=== PATIENT | female | born 1945 | race African-American/Black ===

== ENCOUNTER 2017-02-09 17:46 | Inpatient (IN) | payer MEDICARE, BC ==
[~2017-02-09] VITALS: Ht 167.6 cm; Wt 85.8 kg
[~2017-02-09 17:46] MED LIST: ACET325T21 PO; ALBU2.5V5 NEB; AMLO10TA2 PO; CARV25TA2 PO; CINA30TA PO; CLON0.1T PO; ESOM20CA PO; FOLI0.8T3 PO; IBUP200T43 PO; IPRA3AMP NEB; LATA2.5D3 EACHEYE; LISI40TA PO; MOME17SP NS; NAPR500T3 PO; OMEP40CA5 PO; ONDA4TAB7 PO; PANT40TA5 PO; SEVE800T9 PO; SUCR1TAB29 PO; ZOLP5TAB5 PO
[2017-02-09] MEDS ORDERED: fentaNYL PF VIAL 100 MCG/2 ML VIAL IV PRN (18:00)
[2017-02-09] MEDS ORDERED: IPRATRPIUM/ALBUTEROL 0.5/2.5MG 3 ML NEBU. ONE (18:39)
[2017-02-09 18:40] LABS: BASO % 1 % (0-3); EOS % 0 % (0-3); HEMATOCRIT 37.3 % (36.0-47.0); HEMOGLOBIN 12.4 g/dL (12.0-15.5); LYMPH # 0.4 x10^3/uL (1.0-4.8); LYMPH % 5 % (24-48); MEAN CORPUSCULAR HEMOGLOBIN 31 pg (25-35); MEAN CORPUSCULAR HGB CONC 33 g/dL (31-37); MEAN CORPUSCULAR VOLUME 93 fL (79-100); MONO % 1 % (0-9); NEUT % 93 % (31-73); PLATELET COUNT 163 x10^3/uL (140-400); RED BLOOD COUNT 4.03 x10^6/uL (3.50-5.40); RED CELL DISTRIBUTION WIDTH 15.4 % (11.5-14.5); WHITE BLOOD COUNT 8.5 x10^3/uL (4.0-11.0)
--- NOTE | 2017-02-09 18:44 | PHYS DOC ---
Past Medical History Past Medical History: Diabetes-Type II, GERD, Hypertension, Renal Failure, Other Additional Past Medical Histor: ESRF Past Surgical History: Other Additional Past Surgical Histo: TUMOR-BACK OF HEAD,CATARCT,CARPAL TUNNEL, fistula Rt arm,axillary tumor,D&C Alcohol Use: Occasionally Drug Use: None Adult General Chief Complaint Chief Complaint: CHEST PAIN HPI HPI Patient is a 71 year old FEMALE who presents with DYSPNEA, COUGH, FEVER Pt states cough for few day and increasing shortness of air. Went to scheduled dialysis today and they noted she seem short of air prior to dialysis. Then pt noted to have fever at start of dialysis so dialysis was stopped and pt sent to ER. While on start of dialysis pt started complaining of chest pain across lower chest bilaterally, pressure. Now 10/31. Was given ASA by EMS prior to arrival. Pt states has new dialysis port in R chest ? few weeks ago but pt is unclear exactly how long it has been there. Pt denies F/C prior to today. No redness swelling or pain at new dialysis port site. Pt doesn't make urine. No abdominal pain, no diarrhea, no vomiting Review of Systems Review of Systems Constitutional: YES fever and chills [] Eyes: Denies change in visual acuity, redness, or eye pain [] HENT: Denies nasal congestion or sore throat [] Respiratory: yes cough and dyspnea, no hemoptysis Cardiovascular: yes chest pain, no syncope GI: Denies abdominal pain, nausea, vomiting, bloody stools or diarrhea [] : Denies dysuria or hematuria [] Musculoskeletal: Denies back pain or joint pain [] Integument: Denies rash or skin lesions [] Neurologic: Denies headache, focal weakness or sensory changes [] Endocrine: Denies polyuria or polydipsia [] Current Medications Current Medications Current Medications Medications (Trade) Dose Ordered Sig/Any Start Time Stop Time Status Last Admin Dose Admin Acetaminophen (Tylenol) 1,000 mg 1X ONCE 02/09/17 18:45 02/09/17 18:46 DC 02/09/17 18:51 1,000 MG Albuterol/ Ipratropium (Duoneb) 3 ml STK-MED ONCE 02/09/17 18:39 02/09/17 18:40 DC Fentanyl Citrate (Fentanyl 2ml Vial) 25 mcg PRN Q15MIN PRN 02/09/17 18:00 02/10/17 17:59 02/09/17 18:19 25 MCG Ondansetron HCl (Zofran) 4 mg 1X ONCE 02/09/17 18:45 02/09/17 18:46 DC Piperacillin Sod/ Tazobactam Sod 3.375 gm/Sodium Chloride 50 ml @ 100 mls/hr 1X ONCE 02/09/17 19:00 02/09/17 19:29 DC 02/09/17 18:56 100 MLS/HR Vancomycin HCl (Vanco Per Pharmacy) 1 each PRN DAILY PRN 02/09/17 19:00 Cancel Allergies Allergies Allergies Coded Allergies Type Severity Reaction Last Updated Verified chlorhexidine Allergy Intermediate Rash 06/03/16 Yes Opioids - Morphine Analogues Adverse Reaction Intermediate Nausea and Vomiting 06/03/16 Yes Opioids-Meperidine & Related Adverse Reaction Intermediate Nausea and Vomiting 06/03/16 Yes Opioids-Methadone & Related Adverse Reaction Intermediate Nausea and Vomiting 06/03/16 Yes codeine Adverse Reaction Intermediate Nausea and Vomiting 06/03/16 Yes Physical Exam Physical Exam Constitutional: Mild respiratory distress, coughing in ER HENT: Normocephalic, atraumatic, bilateral external ears normal, oropharynx moist, no oral exudates, nose normal. [] Eyes: PERRLA,, conjunctiva normal, no discharge. [] Neck: Normal range of motion, no tenderness, supple, no stridor. [] Cardiovascular:Heart rate regular rhythm, no murmur [] Lungs & Thorax: Bilateral rales and rhonchi with slight expiratory wheeze Abdomen: Bowel sounds normal, soft, no tenderness, no masses, no pulsatile masses. [] Skin: Warm, dry, no erythema, no rash. [] Back: No tenderness, no CVA tenderness. [] Extremities: No tenderness, no cyanosis, no clubbing, ROM intact, no edema. [] Neurologic: Alert and oriented X 3, normal motor function, normal sensory function, no focal deficits noted. [] Current Patient Data Vital Signs Vital Signs Date Time Temp Pulse Resp B/P (MAP) Pulse Ox O2 Delivery O2 Flow Rate FiO2 02/09/17 19:19 95 Nasal Cannula 4.0 02/09/17 19:00 92 30 202/94 (130) 02/09/17 17:57 100.1 100.1 Lab Values Laboratory Tests Test 02/09/17 18:30 02/09/17 19:15 White Blood Count 8.5 x10^3/uL (4.0-11.0) Red Blood Count 4.03 x10^6/uL (3.50-5.40) Hemoglobin 12.4 g/dL (12.0-15.5) Hematocrit 37.3 % (36.0-47.0) Mean Corpuscular Volume 93 fL (79-100) Mean Corpuscular Hemoglobin 31 pg (25-35) Mean Corpuscular Hemoglobin Concent 33 g/dL (31-37) Red Cell Distribution Width 15.4 % (11.5-14.5) H Platelet Count 163 x10^3/uL (140-400) Neutrophils (%) (Auto) 93 % (31-73) H Lymphocytes (%) (Auto) 5 % (24-48) L Monocytes (%) (Auto) 1 % (0-9) Eosinophils (%) (Auto) 0 % (0-3) Basophils (%) (Auto) 1 % (0-3) Neutrophils # (Auto) 7.9 x10^3uL (1.8-7.7) H Lymphocytes # (Auto) 0.4 x10^3/uL (1.0-4.8) L Monocytes # (Auto) 0.1 x10^3/uL (0.0-1.1) Eosinophils # (Auto) 0.0 x10^3/uL (0.0-0.7) Basophils # (Auto) 0.0 x10^3/uL (0.0-0.2) Segmented Neutrophils % 90 % (35-66) H Lymphocytes % 7 % (24-48) L Monocytes % 2 % (0-10) Eosinophils % 1 % (0-5) Platelet Estimate Adequate (ADEQUATE) Large Platelets Occ Giant Platelets Occ Ovalocytes Occ Schistocytes Occ Prothrombin Time 15.2 SEC (11.7-14.0) H Prothrombin Time INR 1.3 (0.8-1.1) H PTT 37 SEC (24-38) Sodium Level 138 mmol/L (136-145) Potassium Level 4.6 mmol/L (3.5-5.1) Chloride Level 100 mmol/L (98-107) Carbon Dioxide Level 17 mmol/L (21-32) L Anion Gap 21 (6-14) H Blood Urea Nitrogen 60 mg/dL (7-20) H Creatinine 10.6 mg/dL (0.6-1.0) H Estimated GFR (Cockcroft-Gault) 4.4 BUN/Creatinine Ratio 6 (6-20) Glucose Level 105 mg/dL (70-99) H Lactic Acid Level 0.9 mmol/L (0.4-2.0) Calcium Level 9.0 mg/dL (8.5-10.1) Total Bilirubin 0.7 mg/dL (0.2-1.0) Aspartate Amino Transferase (AST) 21 U/L (15-37) Alanine Aminotransferase (ALT) 16 U/L (14-59) Alkaline Phosphatase 108 U/L (46-116) Creatine Kinase 134 U/L (26-192) Creatine Kinase MB (Mass) 3.1 ng/mL (0.0-3.6) Creatine Kinase MB Relative Index 2.3 % (0-4) Troponin I Quantitative 0.576 ng/mL (0.000-0.055) 0.535 ng/mL (0.000-0.055) EP-Wbx-W-Type Natriuretic Peptide > 62647 pg/mL (0-124) H Total Protein 8.3 g/dL (6.4-8.2) H Albumin 3.6 g/dL (3.4-5.0) Albumin/Globulin Ratio 0.8 (1.0-1.7) L Laboratory Tests 02/09/17 18:30 Laboratory Tests 02/09/17 18:30 EKG EKG EKG, Sinus Rhythm, no Stemi, nonspecific ST T wave changes[] Radiology/Procedures Radiology/Procedures Portable CXR----Cardiomegally, +CHF, slight LLL infiltrate Impressions: 1. CHF with respiratory distress ad hypoxia 2. Pneumonia 3. ESRD Course & Med Decision Making Course & Med Decision Making Pertinent Labs and Imaging studies reviewed. (See chart for details) Pt not dialysed today because of fever and cough--sent to ER. Pt has CHF and pneumonia, needs dialysis tonight Gave Zosyn and Vancomycin for pneumonia Elevated troponin X2 but slightly decreasing on second likely stress related to CHF will watch and consulted Cardiology Consulted Nephrology [] Dragon Disclaimer Dragon Disclaimer This electronic medical record was generated, in whole or in part, using a voice recognition dictation system. Departure Departure Impression: Primary Impression: Acute CHF Additional Impression: Pneumonia Disposition: 09 ADMITTED INPATIENT Admitting Physician: Yary Bunch Condition: STABLE Referrals: YARY BUNCH MD (PCP) Problem Qualifiers AUBREY GARCIA MD February 09, 2017 18:44
[2017-02-09] MEDS ORDERED: ONDANSETRON PF 4 MG/2 ML VIAL. IV ONE ×2 (18:45)
[2017-02-09] MEDS ORDERED: ACETAMINOPHEN 500 MG TABLET PO ONE (18:45)
[2017-02-09 18:49] LABS: INR 1.3 (0.8-1.1); PROTHROMBIN TIME PATIENT 15.2 SEC (11.7-14.0)
[2017-02-09 18:54] LABS: CREATININE 10.6 mg/dL (0.6-1.0); GFR 4.4; POTASSIUM 4.6 mmol/L (3.5-5.1)
[2017-02-09] MEDS ORDERED: VANCOMYCIN PER PHARMACY MC PRN (19:00)
[2017-02-09] MEDS ORDERED: PIPERACILLIN/TAZOBACTAM 3.375 GM in IV NORMAL SALINE 50ML 50 ML IV ONE (19:00)
[2017-02-09 19:07] LABS: ALBUMIN 3.6 g/dL (3.4-5.0); ALBUMIN/GLOBULIN RATIO 0.8 (1.0-1.7); CKMB MASS 3.1 ng/mL (0.0-3.6); TOTAL BILIRUBIN 0.7 mg/dL (0.2-1.0); TOTAL PROTEIN 8.3 g/dL (6.4-8.2)
[2017-02-09 19:14] LABS: % EOS 1 % (0-5)
[2017-02-09 19:17] LABS: OVALOCYTES OCC; PLT ESTIMATE ADEQUATE (ADEQUATE); SCHISTOCYTES OCC
[2017-02-09] MEDS ORDERED: IPRATRPIUM/ALBUTEROL 0.5/2.5MG 3 ML NEBU. NEB ONE (19:30)
[2017-02-09] MEDS ORDERED: ONDANSETRON PF 4 MG/2 ML VIAL. IV PRN (19:45)
[2017-02-09] MEDS ORDERED: VANCOMYCIN 2 GM in IV NORMAL SALINE 500ML BAG 500 ML IV ONE (20:00)
[2017-02-09] MEDS ORDERED: IV NORMAL SALINE 1000ML BAG 1,000 ML IV PRN ×2 (20:49)
[2017-02-09] MEDS ORDERED: DIALYSIS PATIENT. MC PRN (21:00)
[2017-02-09] MEDS ORDERED: 0.9 % SODIUM CHLORIDE 10 ML DISP.SYRIN. IV PRN ×2 (21:00)
[2017-02-09] MEDS ORDERED: cloNIDine HCL 0.1 MG TABLET PO ONE (22:00)
[2017-02-09] MEDS ORDERED: ENOXAPARIN 30 MG/0.3 ML SYRINGE. SQ SCH (22:00)
[2017-02-09] MEDS ORDERED: LATANOPROST 0.005% OPHTH SOLUTION 2.5ML BOTTLE. OU SCH (22:15)
[2017-02-09 23:10] VITALS: BP 204/90
[2017-02-09 23:15] VITALS: BP 204/90
[2017-02-09] MEDS: PIPERACILLIN/TAZOBACTAM 2.25 GM in IV NORMAL SALINE 50ML 50 ML IV SCH (23:40)
[2017-02-10] VITALS (8 sets, daily range): BP systolic 112–180; BP diastolic 55–83
[2017-02-10] MEDS ORDERED: ZOLP5TAB5 PO (01:17)
[2017-02-10] MEDS ORDERED: ESOM20CA PO (01:17)
[2017-02-10] MEDS ORDERED: LISI40TA PO (01:17)
[2017-02-10 01:34] LABS: BASO % 0 % (0-3); EOS % 0 % (0-3); HEMATOCRIT 31.4 % (36.0-47.0); HEMOGLOBIN 10.7 g/dL (12.0-15.5); LYMPH # 0.3 x10^3/uL (1.0-4.8); LYMPH % 3 % (24-48); MEAN CORPUSCULAR HEMOGLOBIN 31 pg (25-35); MEAN CORPUSCULAR HGB CONC 34 g/dL (31-37); MEAN CORPUSCULAR VOLUME 91 fL (79-100); MONO % 4 % (0-9); NEUT % 93 % (31-73); PLATELET COUNT 129 x10^3/uL (140-400); RED BLOOD COUNT 3.46 x10^6/uL (3.50-5.40); WHITE BLOOD COUNT 9.7 x10^3/uL (4.0-11.0)
--- NOTE | 2017-02-10 02:34 | ACF ---
Admission Forms Criteria HEART FAILURE: COMMON COMPLICATIONS Clinical Indications for Inpatient Care (Place 'X' for any and all applicable criteria): Ongoing inpatient care may be indicated for heart failure with ANY ONE of the following (1)(2)(3)(4)(5): [ ]I. Ongoing need for care for primary condition requiring frequent therapy adjustments because of changes in cardiac function (eg, drug dosage changes for drugs that are renally metabolized) [ ]II. New-onset heart failure [ ]III. Heart failure with decreased urine output not responsive to attempts to optimize volume status [ ]IV. Acute cardiac ischemia causing or associated with failure [X ]V. Complications of heart failure, including ANY ONE of the following: [ ]a) Pericardial effusion [ ]b) Symptomatic pleural effusion [ ]c) O2 saturation <90% or PO2 < 60 mm Hg (8.0 kPa) on room air or require baseline supplemental O2 [ ]d) Tachypnea [X]e) Dyspnea [ ]f) Syncope [ ]g) Change in mental status [ ]h) Acute renal insufficiency that is severe (reduction of more than 50% in estimated glomerular filtration rate from baseline) or progressive reduction of more than 25% in estimated glomerular filtration rate from baseline, with creatinine continuing to rise) [ ]i) Hemodynamic instability [ ]j) Anasarca [ ]k) Clinically significant metabolic abnormalities due to heart failure (eg, new-onset metabolic acidosis) Extended stay beyond goal length of stay for primary condition may be needed until ALL of the following are present(1)(3): [ ]a) Stable and effective diuretic regimen established (or patient on stable dialysis regimen if in chronic renal failure) [ ]b) Breathing comfortably at rest [ ]c) Saturation of arterial oxygen greater than 90% or at acceptable baseline [ ]d) Pulmonary edema absent or improved [ ]e) Hemodynamic stability [ ]f) Volume status acceptable on oral medication [ ]g) Peripheral or sacral edema absent or improved [ ]h) Renal function stable and manageable at a lower level of care [ ]i) Complications (eg, pleural effusion) resolved or manageable at a lower level of care [ ]j) Patient or caregiver has received written discharge instructions or educational material addressing activity level, diet, discharge medications, follow-up appointment, weight monitoring, and what to do if symptoms worsen The original [facility] content created by [employer] has been revised. The portions of the content which have been revised are identified through the use of italic text or in bold, and [facility] has neither reviewed nor approved the modified material.All other unmodified content is copyright [facility]. Please see references footnoted in the original [facility] 2016 Admission Criteria Met?: Yes KENDELL WILSON February 10, 2017 02:34
[2017-02-10] MEDS: cloNIDine HCL 0.1 MG TABLET PO PRN (03:37)
[2017-02-10 04:15] LABS: CALCIUM 8.3 mg/dL (8.5-10.1); CREATININE 6.3 mg/dL (0.6-1.0); POTASSIUM 3.7 mmol/L (3.5-5.1)
[2017-02-10] MEDS ORDERED: ACETAMINOPHEN 500 MG TABLET PO ONE (05:00)
[2017-02-10] MEDS: PIPERACILLIN/TAZOBACTAM 2.25 GM in IV NORMAL SALINE 50ML 50 ML IV SCH ×3 (05:54→21:34)
[2017-02-10] MEDS: ONDANSETRON ODT 4 MG TAB.RAPDIS. PO SCH ×4 (06:00→18:00)
[2017-02-10] MEDS: IPRATRPIUM/ALBUTEROL 0.5/2.5MG 3 ML NEBU. NEB SCH ×4 (07:30→19:43)
--- NOTE | 2017-02-10 07:33 | EKG ---
[facility] [address] [place] [id number] Test Date: 2017-02-09 Test Time: 17:53:18 Pat Name: EMERALD MAI Department: Room: 248 1 Gender: F Model Technician: : 1945 Requested By: AUBREY GARCIA Order Number: [id number] Reading MD: Mireya Garrido Measurements Intervals [place] Rate: 91 P: 43 WV: 252 QRS: 37 QRSD: 90 T: 101 QT: 370 QTc: 457 Interpretive Statements SINUS RHYTHM PROLONGED WV INTERVAL NON SPECIFIC ST T WAVE CHANGES Electronically Signed On 02-12-2017 20:45:11 CDT by Mireya Garrido
--- NOTE | 2017-02-10 08:19 | RAD ---
Portable chest, 02/09/2017: History: Dyspnea Comparison is made to a study from 02/29/2016. A right jugular dialysis type catheter has been inserted extending into the superior aspect of the right atrium. The heart is at the upper limits of normal in size. The pulmonary vascularity is congested. There are moderate bilateral predominantly interstitial pulmonary opacities compatible with pulmonary edema. No significant volume of pleural fluid is seen. IMPRESSION: Moderate pulmonary edema.
[2017-02-10] MEDS: FLUTICASONE 50MCG/NASAL SPRAY 16GM BOTTLE. NS SCH (09:07)
--- NOTE | 2017-02-10 09:48 | PDOC2 ---
BRIAN MEDINA SAW MAN 02/10/17 0948: CARDIAC CONSULT DATE OF CONSULT Date of Consult DATE: 02/10/17 TIME: 09:30 REASON FOR CONSULT Reason for Consult: Chest Pain Elevated Troponin REFERRING PHYSICIAN Referring Physician: Dr. Munoz SOURCE Source: Chart review, Patient HISTORY OF PRESENT ILLNESS HISTORY OF PRESENT ILLNESS This is a 71 yo female who presented with complaints of shortness of breath and fevers. Patient reports having intermittent nausea yesterday and not feeling well overall. Started having slight shortness of air in the afternoon. Went to dialysis; SOA persisted. Was reportedly noted to have slight fevers and was sent to the ED for further evaluation. Did not received HD. Denies any CP, palpitations, dizziness, diaphoresis, or significant LE edema. Patient reports compliance with medication and dialysis. PAST MEDICAL HISTORY Past Medical History Cardiovascular: HTN, CHF Pulmonary: No pertinent hx CENTRAL NERVOUS SYSTEM: Other (no pertinent hx) GI: GERD Heme/Onc: Anemia NOS Hepatobiliary: No pertinent hx Psych: Anxiety, Depression Musculoskeletal: Osteoarthritis Rheumatologic: No pertinent hx Infectious disease: No pertinent hx ENT: No pertinent hx Renal/: ESRD (on HD), Other (anuric), renal mass Endocrine: Diabetes Dermatology: No pertinent hx PAST SURGICAL HISTORY Past Surgical History Cataract Removal, Other (Right knee replacement, RUE fistula, breast biopsy, carpal tunnel sx) FAMILY HISTORY Family History: Coronary Artery Disease, Hypertension SOCIAL HISTORY Social History Smoke: No ALCOHOL: none Drugs: None Lives: with Family CURRENT MEDICATIONS CURRENT MEDICATIONS Current Medications Medications (Trade) Dose Ordered Sig/Any Route PRN Reason Start Time Stop Time Status Last Admin Dose Admin Fentanyl Citrate (Fentanyl 2ml Vial) 25 mcg PRN Q15MIN PRN IV PAIN GREATER THAN 3/10 02/09/17 18:00 02/10/17 17:59 02/09/17 18:19 Acetaminophen (Tylenol) 1,000 mg 1X ONCE PO 02/09/17 18:45 02/09/17 18:46 DC 02/09/17 18:51 Ondansetron HCl (Zofran) 4 mg 1X ONCE IV 02/09/17 18:45 02/09/17 18:46 DC 02/09/17 18:51 Piperacillin Sod/ Tazobactam Sod 3.375 gm/Sodium Chloride 50 ml @ 100 mls/hr 1X ONCE IV 02/09/17 19:00 02/09/17 19:29 DC 02/09/17 18:56 Vancomycin HCl 2 gm/Sodium Chloride 500 ml @ 250 mls/hr 1X ONCE IV 02/09/17 20:00 02/09/17 21:59 DC 02/09/17 19:40 Albuterol/ Ipratropium (Duoneb) 3 ml 1X ONCE NEB 02/09/17 19:30 02/09/17 19:31 DC 02/09/17 19:21 Ondansetron HCl (Zofran) 4 mg PRN Q8HRS PRN IV NAUSEA/VOMITING 02/09/17 19:45 02/10/17 19:44 02/09/17 22:46 Piperacillin Sod/ Tazobactam Sod 2.25 gm/Sodium Chloride 50 ml @ 100 mls/hr Q8HRS IV 02/09/17 22:00 02/10/17 05:54 Albuterol/ Ipratropium (Duoneb) 3 ml RTQID NEB 02/10/17 08:00 02/10/17 07:30 Clonidine HCl (Catapres) 0.1 mg PRN Q2HR PRN PO HYPERTENSION, SEE COMMENTS 02/09/17 21:45 02/10/17 03:37 Fluticasone Propionate (Flonase) 2 spray DAILY NS 02/10/17 09:00 02/10/17 09:07 Enoxaparin Sodium (Lovenox 30mg Syringe) 30 mg Q24H SQ 02/09/17 22:00 02/10/17 00:10 Clonidine HCl (Catapres) 0.1 mg 1X ONCE PO 02/09/17 22:00 02/09/17 22:03 DC 02/09/17 23:39 Acetaminophen (Tylenol) 500 mg 1X ONCE PO 02/10/17 05:00 02/10/17 05:01 DC 02/10/17 05:15 ALLERGIES ALLERGIES: Coded Allergies: chlorhexidine (Verified Allergy, Intermediate, Rash, 06/03/16) Opioids - Morphine Analogues (Verified Adverse Reaction, Intermediate, Nausea and Vomiting, 06/03/16) Opioids-Meperidine & Related (Verified Adverse Reaction, Intermediate, Nausea and Vomiting, 06/03/16) Opioids-Methadone & Related (Verified Adverse Reaction, Intermediate, Nausea and Vomiting, 06/03/16) codeine (Verified Adverse Reaction, Intermediate, Nausea and Vomiting, ) ROS Review of System 14 point ROS conducted with pertinent positives noted above in HPI. PHYSICAL EXAM PHYSICAL EXAM General: Alert, Oriented X3, Cooperative, No acute distress HEENT: Atraumatic, Mucous membr. moist/pink Heart: Regular rate, Normal S1, Normal S2, Other (3/6 systolic murmur) Abdomen: soft/non-tender Extremities: No cyanosis, No edema, Other (RUE fistula + bruit/thrill) Skin: No breakdown, No significant lesion Neuro: Normal speech, Sensation intact Psych/Mental Status: Mental status NL, Mood NL MUSCULOSKELETAL: Osteoarthritic changes both hands VITALS VITALS Vital Signs Date Time Temp Pulse Resp B/P (MAP) Pulse Ox O2 Delivery O2 Flow Rate FiO2 02/10/17 07:45 98.0 62 22 158/74 (102) 96 Nasal Cannula 3.0 98.0 LABS Lab: Laboratory Tests Test 02/09/17 18:30 02/09/17 19:15 02/10/17 01:30 02/10/17 07:45 White Blood Count 8.5 x10^3/uL (4.0-11.0) 9.7 x10^3/uL (4.0-11.0) Red Blood Count 4.03 x10^6/uL (3.50-5.40) 3.46 x10^6/uL (3.50-5.40) Hemoglobin 12.4 g/dL (12.0-15.5) 10.7 g/dL (12.0-15.5) Hematocrit 37.3 % (36.0-47.0) 31.4 % (36.0-47.0) Mean Corpuscular Volume 93 fL (79-100) 91 fL (79-100) Mean Corpuscular Hemoglobin 31 pg (25-35) 31 pg (25-35) Mean Corpuscular Hemoglobin Concent 33 g/dL (31-37) 34 g/dL (31-37) Red Cell Distribution Width 15.4 % (11.5-14.5) 15.0 % (11.5-14.5) Platelet Count 163 x10^3/uL (140-400) 129 x10^3/uL (140-400) Neutrophils (%) (Auto) 93 % (31-73) 93 % (31-73) Lymphocytes (%) (Auto) 5 % (24-48) 3 % (24-48) Monocytes (%) (Auto) 1 % (0-9) 4 % (0-9) Eosinophils (%) (Auto) 0 % (0-3) 0 % (0-3) Basophils (%) (Auto) 1 % (0-3) 0 % (0-3) Neutrophils # (Auto) 7.9 x10^3uL (1.8-7.7) 9.0 x10^3uL (1.8-7.7) Lymphocytes # (Auto) 0.4 x10^3/uL (1.0-4.8) 0.3 x10^3/uL (1.0-4.8) Monocytes # (Auto) 0.1 x10^3/uL (0.0-1.1) 0.4 x10^3/uL (0.0-1.1) Eosinophils # (Auto) 0.0 x10^3/uL (0.0-0.7) 0.0 x10^3/uL (0.0-0.7) Basophils # (Auto) 0.0 x10^3/uL (0.0-0.2) 0.0 x10^3/uL (0.0-0.2) Segmented Neutrophils % 90 % (35-66) Lymphocytes % 7 % (24-48) Monocytes % 2 % (0-10) Eosinophils % 1 % (0-5) Platelet Estimate Adequate (ADEQUATE) Large Platelets Occ Giant Platelets Occ Ovalocytes Occ Schistocytes Occ Prothrombin Time 15.2 SEC (11.7-14.0) Prothromb Time International Ratio 1.3 (0.8-1.1) Activated Partial Thromboplast Time 37 SEC (24-38) Sodium Level 138 mmol/L (136-145) 139 mmol/L (136-145) Potassium Level 4.6 mmol/L (3.5-5.1) 3.7 mmol/L (3.5-5.1) Chloride Level 100 mmol/L (98-107) 101 mmol/L (98-107) Carbon Dioxide Level 17 mmol/L (21-32) 24 mmol/L (21-32) Anion Gap 21 (6-14) 14 (6-14) Blood Urea Nitrogen 60 mg/dL (7-20) 30 mg/dL (7-20) Creatinine 10.6 mg/dL (0.6-1.0) 6.3 mg/dL (0.6-1.0) Estimated GFR (Cockcroft-Gault) 4.4 8.0 BUN/Creatinine Ratio 6 (6-20) Glucose Level 105 mg/dL (70-99) 145 mg/dL (70-99) Lactic Acid Level 0.9 mmol/L (0.4-2.0) Calcium Level 9.0 mg/dL (8.5-10.1) 8.3 mg/dL (8.5-10.1) Total Bilirubin 0.7 mg/dL (0.2-1.0) Aspartate Amino Transf (AST/SGOT) 21 U/L (15-37) Alanine Aminotransferase (ALT/SGPT) 16 U/L (14-59) Alkaline Phosphatase 108 U/L (46-116) Creatine Kinase 134 U/L (26-192) Creatine Kinase MB (Mass) 3.1 ng/mL (0.0-3.6) Creatine Kinase MB Relative Index 2.3 % (0-4) Troponin I Quantitative 0.576 ng/mL (0.000-0.055) 0.535 ng/mL (0.000-0.055) 0.704 ng/mL (0.000-0.055) 0.744 ng/mL (0.000-0.055) YY-Ovw-L-Type Natriuretic Peptide > 49820 pg/mL (0-124) Total Protein 8.3 g/dL (6.4-8.2) Albumin 3.6 g/dL (3.4-5.0) Albumin/Globulin Ratio 0.8 (1.0-1.7) ECHOCARDIOGRAM ECHOCARDIOGRAM <Conclusion> Normal LV systolic function. EF 55-60% Mild to moderate MR. Mild TR with moderate pulmonary HTN. RVSP 59 mm Hg. DATE: 02/05/16 1420 STRESS TEST STRESS TEST Conclusion 1. No evidence of stress induced EKG changes. 2. Subtle inferolateral perfusion defect suggestive of attenuation artifact with grossly normal regional wall motion. 3. EF 50%. 4. Low risk study. DATE: 02/06/16 0816 ASSESSMENT/PLAN ASSESSMENT/PLAN 1. Acute on chronic diastolic heart failure 2. Hypertensive urgency 3. Mild troponin elevation 4. Dyspnea 5. Pulmonary HTN 6. ESRD on HD 7. Anemia 8. DM Recommendations 1. Resume home antiHTN therapy and assess need for titration. Hydralazine IV PRN 2. Mild troponin elevation likely type II, demand ischemia in the setting of renal failure and malignant HTN. 2 Will check echo to assess LV function/presence of WMA 3. Fluid offloading with HD as per nephrology, as patient is anuric. Maintain blood pressure control. 4. Supportive care Problems: ARELY JARAMILLO MD 02/10/172158: CARDIAC CONSULT ALLERGIES ALLERGIES: Coded Allergies: chlorhexidine (Verified Allergy, Intermediate, Rash, 06/03/16) Opioids - Morphine Analogues (Verified Adverse Reaction, Intermediate, Nausea and Vomiting, 06/03/16) Opioids-Meperidine & Related (Verified Adverse Reaction, Intermediate, Nausea and Vomiting, 06/03/16) Opioids-Methadone & Related (Verified Adverse Reaction, Intermediate, Nausea and Vomiting, 06/03/16) codeine (Verified Adverse Reaction, Intermediate, Nausea and Vomiting, ) ASSESSMENT/PLAN ASSESSMENT/PLAN Pt. seen and examined. Agree with above [employer] note. 71 y.o woman with ESRD. Gained weight last several weeks. Denies chest pain. Normal cardiac exam today. Feels better and HD. Plan for more fluid removal Will follow along. Echo wnl. Problems: BRIAN MEDINA APRN February 10, 2017 09:48 ARELY JARAMILLO MD February 10, 2017 21:59
[2017-02-10] MEDS: FOLIC/VIT B COMP W-C (RENAL) TABLET. PO SCH (09:54)
[2017-02-10] MEDS: SEVELAMER CARBONATE 800 MG TABLET. PO SCH ×3 (09:54→18:32)
[2017-02-10] MEDS: PANTOPRAZOLE 40 MG TABLET.DR. PO SCH (09:56)
[2017-02-10] MEDS: amLODIPine BESYLATE 10 MG TABLET PO SCH (09:57)
[2017-02-10] MEDS: SUCRALFATE 1 GM TABLET. PO SCH ×3 (09:58→18:33)
[2017-02-10] MEDS: CARVEDILOL 12.5 MG TABLET. PO SCH ×2 (09:58→18:34)
[2017-02-10 10:06] LABS: OBC FLU VALID
--- NOTE | 2017-02-10 10:09 | PDOC ---
Provider Note Provider Note Pt seen .H&P to be dictated YARY FAIRCHILD MD February 10, 2017 10:09
--- NOTE | 2017-02-10 11:13 | PDOC2 ---
CONSULT Date of Consult Date of Consult DATE: 02/10/17 TIME: 11:09 Reason for Consult Reason for Consult: DEVORAH Referring Physician Referring Physician: DEVORAH Identification/Chief Complaint Chief Complaint SOB Source Source: Chart review, Patient History of Present Illness Reason for Visit: THIS IS A 71 YR OLD ADMITTED WITH SOB AND DX WITH VOLUME OVERLOAD AND POSSIBLE PNEUMONIA. SHE HAS ESRD AND IS ON OP HD ON MWF. LABS ARE C/W ESRD. SHE IS ALSO NOTED TO HAVE SOME LEUCOCYTOSIS. CXRAY SHOWED PULMONARY EDEMA. SHE HAS ALSO HAD SOME FEVERS Past Medical History Cardiovascular: HTN Pulmonary: No pertinent hx CENTRAL NERVOUS SYSTEM: Other GI: GERD Heme/Onc: Anemia NOS Psych: Anxiety, Depression Musculoskeletal: Osteoarthritis Renal/: Chronic renal failure, Other Endocrine: Diabetes, Hyperparathyroidism Past Surgical History Past Surgical History: Cataract Removal, Total knee replacement Family History Family History: Coronary Artery Disease, Hypertension Social History ALCOHOL: none Drugs: None Lives: with Family Current Problem List Problem List Problems Medical Problems: (1) Acute CHF Status: Acute (2) Pneumonia Status: Acute Current Medications Current Medications Current Medications Fentanyl Citrate (Fentanyl 2ml Vial) 25 mcg PRN Q15MIN PRN IV PAIN GREATER THAN 3/10 Last administered on 02/09/17 18:19; Start 02/09/17 at 18:00; Stop at 17:59 Acetaminophen (Tylenol) 1,000 mg 1X ONCE PO Last administered on 02/09/17 18: 51; Start 02/09/17 at 18:45; Stop 02/09/17 at 18:46; Status DC Albuterol/ Ipratropium (Duoneb) 3 ml STK-MED ONCE .ROUTE ; Start 02/09/17 at 18: 39; Stop 02/09/17 at 18:40; Status DC Ondansetron HCl (Zofran) 4 mg 1X ONCE IV Last administered on 02/09/17 18:51 ; Start 02/09/17 at 18:45; Stop 02/09/17 at 18:46; Status DC Ondansetron HCl (Zofran) 4 mg 1X ONCE IV ; Start 02/09/17 at 18:45; Stop at 18:46; Status DC Piperacillin Sod/ Tazobactam Sod 3.375 gm/Sodium Chloride 50 ml @ 100 mls/hr 1X ONCE IV Last administered on 02/09/17 18:56; Start 02/09/17 at 19:00; Stop 02/09/17 at 19:29; Status DC Vancomycin HCl (Vanco Per Pharmacy) 1 each PRN DAILY PRN MC SEE COMMENTS; Start 02/09/17 at 19:00; Status Cancel Vancomycin HCl 2 gm/Sodium Chloride 500 ml @ 250 mls/hr 1X ONCE IV Last administered on 02/09/17 19:40; Start 02/09/17 at 20:00; Stop 02/09/17 at 21:59 ; Status DC Albuterol/ Ipratropium (Duoneb) 3 ml 1X ONCE NEB Last administered on 19:21; Start 02/09/17 at 19:30; Stop 02/09/17 at 19:31; Status DC Ondansetron HCl (Zofran) 4 mg PRN Q8HRS PRN IV NAUSEA/VOMITING Last administered on 02/09/17 22:46; Start 02/09/17 at 19:45; Stop 02/10/17 at 19:44 Sodium Chloride 1,000 ml @ 1,000 mls/hr Q1H PRN IV hypotension; Start 02/09/17 at 20:49; Stop 02/10/17 at 02:48; Status DC Sodium Chloride (Normal Saline Flush) 10 ml 1X PRN PRN IV AP catheter pack; Start 02/09/17 at 21:00; Stop 02/10/17 at 20:59 Sodium Chloride (Normal Saline Flush) 10 ml 1X PRN PRN IV LINKER UP catheter pack; Start 02/09/17 at 21:00; Stop 02/10/17 at 20:59 Sodium Chloride 1,000 ml @ 400 mls/hr Q2H30M PRN IV PATENCY; Start 02/09/17 at 20:49; Stop 02/10/17 at 08:48; Status DC Info (PHARMACY MONITORING -- do not chart) 1 each PRN DAILY PRN MC SEE COMMENTS ; Start 02/09/17 at 21:00 Piperacillin Sod/ Tazobactam Sod 2.25 gm/Sodium Chloride 50 ml @ 100 mls/hr Q8HRS IV Last administered on 02/10/17 05:54; Start 02/09/17 at 22:00 Albuterol/ Ipratropium (Duoneb) 3 ml RTQID NEB Last administered on 02/10/17 07:30; Start 02/10/17 at 08:00 Amlodipine Besylate (Norvasc) 10 mg DAILY PO Last administered on 02/10/17 09: 57; Start 02/10/17 at 09:00 Cinacalcet (Sensipar) 30 mg DAILYWLUN PO ; Start 02/10/17 at 12:00 Clonidine HCl (Catapres) 0.1 mg PRN Q2HR PRN PO HYPERTENSION, SEE COMMENTS Last administered on 02/10/17 03:37; Start 02/09/17 at 21:45 Vitamin B Complex/ Vitamin C (Evelyn-Elsa) 1 tab DAILY PO Last administered on 09:54; Start 02/10/17 at 09:00 Latanoprost (Xalatan) 1 drop QHS OU ; Start 02/09/17 at 22:15; Stop 02/09/17 at 22:15; Status DC Pantoprazole Sodium (Protonix) 40 mg DAILY PO Last administered on 02/10/17 09 :56; Start 02/10/17 at 09:00 Sevelamer Carbonate (Renvela) 800 mg TIDWMEALS PO Last administered on 09:54; Start 02/10/17 at 08:00 Sucralfate (Carafate) 1 gm TIDAC PO Last administered on 02/10/17 09:58; Start 02/10/17 at 07:30 Carvedilol (Coreg) 12.5 mg BIDWMEALS PO Last administered on 02/10/17 09:58; Start 02/10/17 at 08:00 Fluticasone Propionate (Flonase) 2 spray DAILY NS Last administered on 09:07; Start 02/10/17 at 09:00 Ondansetron HCl (Zofran Odt) 4 mg Q6HRS PO Last administered on 02/10/17 09:55 ; Start 02/10/17 at 00:00 Enoxaparin Sodium (Lovenox 30mg Syringe) 30 mg Q24H SQ Last administered on 00:10; Start 02/09/17 at 22:00 Clonidine HCl (Catapres) 0.1 mg 1X ONCE PO Last administered on 02/09/17t 23: 39; Start 02/09/17 at 22:00; Stop 02/09/17 at 22:03; Status DC Latanoprost (Xalatan) 1 drop QHS OU ; Start 02/10/17 at 21:00 Acetaminophen (Tylenol) 500 mg 1X ONCE PO Last administered on 02/10/17t 05:15 ; Start 02/10/17 at 05:00; Stop 02/10/17 at 05:01; Status DC Lisinopril (Prinivil) 40 mg BID PO ; Start 02/10/17 at 11:00 Active Scripts Active Zofran (Ondansetron Hcl) 4 Mg Tablet 1 Tab PO Q6HRS Reported Nexium Capsule (Esomeprazole Magnesium) 20 Mg Capsule.dr 1 Cap PO DAILY Zolpidem Tartrate 5 Mg Tablet 5 Mg PO PRN QHS PRN Lisinopril 40 Mg Tablet 1 Tab PO BID Latanoprost 2.5 Ml Drops 1 Drop EACHEYE QHS Pantoprazole Sodium 40 Mg Tablet.dr 40 Mg PO DAILY Sensipar (Cinacalcet Hcl) 30 Mg Tablet 30 Mg PO DAILYWLUN Renvela (Sevelamer Carbonate) 800 Mg Tablet 800 Mg PO TIDWMEALS Nephro-Elsa Tablet (Folic Acid/Vitamin B Comp W-C) 0.8 Mg Tablet 1 Tab PO DAILY Nasonex (Mometasone Furoate) 17 Gm Gunlock.pump 2 Sprays NS DAILY Clonidine Hcl 0.1 Mg Tablet 0.1 Mg PO PRN Q2HR PRN Carvedilol 25 Mg Tablet 12.5 Mg PO BIDWMEALS Carafate (Sucralfate) 1 Gm Tablet 1 Gm PO TIDAC Amlodipine Besylate 10 Mg Tablet 10 Mg PO DAILY Allergies Allergies: Coded Allergies: chlorhexidine (Verified Allergy, Intermediate, Rash, 06/03/16) Opioids - Morphine Analogues (Verified Adverse Reaction, Intermediate, Nausea and Vomiting, 06/03/16) Opioids-Meperidine & Related (Verified Adverse Reaction, Intermediate, Nausea and Vomiting, 06/03/16) Opioids-Methadone & Related (Verified Adverse Reaction, Intermediate, Nausea and Vomiting, 06/03/16) codeine (Verified Adverse Reaction, Intermediate, Nausea and Vomiting, ) ROS General: YES: Fatigue, Appetite PSYCHOLOGICAL ROS: YES: Anxiety Eyes: Yes Decreased vision HEENT: YES: Heacaches Respiratory: YES: Cough, Shortness of breath Cardiovascular: yes Edema Gastrointestinal: Yes Constipation Genitourinary: YES Other (ANURIA) Musculoskeletal: Yes Muscular Weakness Neurological: Yes Weakness Skin: Yes Dry Skin Physical Exam General: Alert, Oriented X3, Cooperative, No acute distress HEENT: Atraumatic, PERRLA, EOMI Lungs: Other (BASILAR RALES) Heart: Regular rate, Normal S1 Abdomen: Normal bowel sounds, No tenderness Skin: No rashes Neuro: Normal speech, Cranial nerves 3-12 NL Psych/Mental Status: Mental status NL, Mood NL MUSCULOSKELETAL: No deformity Vitals VITALS Vital Signs Date Time Temp Pulse Resp B/P (MAP) Pulse Ox O2 Delivery O2 Flow Rate FiO2 02/10/17 09:58 57 158/74 02/10/17 07:45 98.0 22 96 Nasal Cannula 3.0 98.0 Labs Labs Laboratory Tests Test 02/09/17 18:30 02/09/17 19:15 02/10/17 00:30 02/10/17 01:30 White Blood Count 8.5 x10^3/uL (4.0-11.0) 9.7 x10^3/uL (4.0-11.0) Red Blood Count 4.03 x10^6/uL (3.50-5.40) 3.46 x10^6/uL (3.50-5.40) Hemoglobin 12.4 g/dL (12.0-15.5) 10.7 g/dL (12.0-15.5) Hematocrit 37.3 % (36.0-47.0) 31.4 % (36.0-47.0) Mean Corpuscular Volume 93 fL (79-100) 91 fL (79-100) Mean Corpuscular Hemoglobin 31 pg (25-35) 31 pg (25-35) Mean Corpuscular Hemoglobin Concent 33 g/dL (31-37) 34 g/dL (31-37) Red Cell Distribution Width 15.4 % (11.5-14.5) 15.0 % (11.5-14.5) Platelet Count 163 x10^3/uL (140-400) 129 x10^3/uL (140-400) Neutrophils (%) (Auto) 93 % (31-73) 93 % (31-73) Lymphocytes (%) (Auto) 5 % (24-48) 3 % (24-48) Monocytes (%) (Auto) 1 % (0-9) 4 % (0-9) Eosinophils (%) (Auto) 0 % (0-3) 0 % (0-3) Basophils (%) (Auto) 1 % (0-3) 0 % (0-3) Neutrophils # (Auto) 7.9 x10^3uL (1.8-7.7) 9.0 x10^3uL (1.8-7.7) Lymphocytes # (Auto) 0.4 x10^3/uL (1.0-4.8) 0.3 x10^3/uL (1.0-4.8) Monocytes # (Auto) 0.1 x10^3/uL (0.0-1.1) 0.4 x10^3/uL (0.0-1.1) Eosinophils # (Auto) 0.0 x10^3/uL (0.0-0.7) 0.0 x10^3/uL (0.0-0.7) Basophils # (Auto) 0.0 x10^3/uL (0.0-0.2) 0.0 x10^3/uL (0.0-0.2) Segmented Neutrophils % 90 % (35-66) Lymphocytes % 7 % (24-48) Monocytes % 2 % (0-10) Eosinophils % 1 % (0-5) Platelet Estimate Adequate (ADEQUATE) Large Platelets Occ Giant Platelets Occ Ovalocytes Occ Schistocytes Occ Prothrombin Time 15.2 SEC (11.7-14.0) Prothromb Time International Ratio 1.3 (0.8-1.1) Activated Partial Thromboplast Time 37 SEC (24-38) Sodium Level 138 mmol/L (136-145) 139 mmol/L (136-145) Potassium Level 4.6 mmol/L (3.5-5.1) 3.7 mmol/L (3.5-5.1) Chloride Level 100 mmol/L (98-107) 101 mmol/L (98-107) Carbon Dioxide Level 17 mmol/L (21-32) 24 mmol/L (21-32) Anion Gap 21 (6-14) 14 (6-14) Blood Urea Nitrogen 60 mg/dL (7-20) 30 mg/dL (7-20) Creatinine 10.6 mg/dL (0.6-1.0) 6.3 mg/dL (0.6-1.0) Estimated GFR (Cockcroft-Gault) 4.4 8.0 BUN/Creatinine Ratio 6 (6-20) Glucose Level 105 mg/dL (70-99) 145 mg/dL (70-99) Lactic Acid Level 0.9 mmol/L (0.4-2.0) Calcium Level 9.0 mg/dL (8.5-10.1) 8.3 mg/dL (8.5-10.1) Total Bilirubin 0.7 mg/dL (0.2-1.0) Aspartate Amino Transf (AST/SGOT) 21 U/L (15-37) Alanine Aminotransferase (ALT/SGPT) 16 U/L (14-59) Alkaline Phosphatase 108 U/L (46-116) Creatine Kinase 134 U/L (26-192) Creatine Kinase MB (Mass) 3.1 ng/mL (0.0-3.6) Creatine Kinase MB Relative Index 2.3 % (0-4) Troponin I Quantitative 0.576 ng/mL (0.000-0.055) 0.535 ng/mL (0.000-0.055) 0.704 ng/mL (0.000-0.055) RI-Fzk-M-Type Natriuretic Peptide > 36381 pg/mL (0-124) Total Protein 8.3 g/dL (6.4-8.2) Albumin 3.6 g/dL (3.4-5.0) Albumin/Globulin Ratio 0.8 (1.0-1.7) Influenza Type A Antigen Negative (NEGATIVE) Influenza Type B Antigen Negative (NEGATIVE) Test 02/10/17 07:45 Troponin I Quantitative 0.744 ng/mL (0.000-0.055) Laboratory Tests Test 02/09/17 18:30 02/09/17 19:15 02/10/17 00:30 02/10/17 01:30 White Blood Count 8.5 x10^3/uL (4.0-11.0) 9.7 x10^3/uL (4.0-11.0) Red Blood Count 4.03 x10^6/uL (3.50-5.40) 3.46 x10^6/uL (3.50-5.40) Hemoglobin 12.4 g/dL (12.0-15.5) 10.7 g/dL (12.0-15.5) Hematocrit 37.3 % (36.0-47.0) 31.4 % (36.0-47.0) Mean Corpuscular Volume 93 fL (79-100) 91 fL (79-100) Mean Corpuscular Hemoglobin 31 pg (25-35) 31 pg (25-35) Mean Corpuscular Hemoglobin Concent 33 g/dL (31-37) 34 g/dL (31-37) Red Cell Distribution Width 15.4 % (11.5-14.5) 15.0 % (11.5-14.5) Platelet Count 163 x10^3/uL (140-400) 129 x10^3/uL (140-400) Neutrophils (%) (Auto) 93 % (31-73) 93 % (31-73) Lymphocytes (%) (Auto) 5 % (24-48) 3 % (24-48) Monocytes (%) (Auto) 1 % (0-9) 4 % (0-9) Eosinophils (%) (Auto) 0 % (0-3) 0 % (0-3) Basophils (%) (Auto) 1 % (0-3) 0 % (0-3) Neutrophils # (Auto) 7.9 x10^3uL (1.8-7.7) 9.0 x10^3uL (1.8-7.7) Lymphocytes # (Auto) 0.4 x10^3/uL (1.0-4.8) 0.3 x10^3/uL (1.0-4.8) Monocytes # (Auto) 0.1 x10^3/uL (0.0-1.1) 0.4 x10^3/uL (0.0-1.1) Eosinophils # (Auto) 0.0 x10^3/uL (0.0-0.7) 0.0 x10^3/uL (0.0-0.7) Basophils # (Auto) 0.0 x10^3/uL (0.0-0.2) 0.0 x10^3/uL (0.0-0.2) Segmented Neutrophils % 90 % (35-66) Lymphocytes % 7 % (24-48) Monocytes % 2 % (0-10) Eosinophils % 1 % (0-5) Platelet Estimate Adequate (ADEQUATE) Large Platelets Occ Giant Platelets Occ Ovalocytes Occ Schistocytes Occ Prothrombin Time 15.2 SEC (11.7-14.0) Prothromb Time International Ratio 1.3 (0.8-1.1) Activated Partial Thromboplast Time 37 SEC (24-38) Sodium Level 138 mmol/L (136-145) 139 mmol/L (136-145) Potassium Level 4.6 mmol/L (3.5-5.1) 3.7 mmol/L (3.5-5.1) Chloride Level 100 mmol/L (98-107) 101 mmol/L (98-107) Carbon Dioxide Level 17 mmol/L (21-32) 24 mmol/L (21-32) Anion Gap 21 (6-14) 14 (6-14) Blood Urea Nitrogen 60 mg/dL (7-20) 30 mg/dL (7-20) Creatinine 10.6 mg/dL (0.6-1.0) 6.3 mg/dL (0.6-1.0) Estimated GFR (Cockcroft-Gault) 4.4 8.0 BUN/Creatinine Ratio 6 (6-20) Glucose Level 105 mg/dL (70-99) 145 mg/dL (70-99) Lactic Acid Level 0.9 mmol/L (0.4-2.0) Calcium Level 9.0 mg/dL (8.5-10.1) 8.3 mg/dL (8.5-10.1) Total Bilirubin 0.7 mg/dL (0.2-1.0) Aspartate Amino Transf (AST/SGOT) 21 U/L (15-37) Alanine Aminotransferase (ALT/SGPT) 16 U/L (14-59) Alkaline Phosphatase 108 U/L (46-116) Creatine Kinase 134 U/L (26-192) Creatine Kinase MB (Mass) 3.1 ng/mL (0.0-3.6) Creatine Kinase MB Relative Index 2.3 % (0-4) Troponin I Quantitative 0.576 ng/mL (0.000-0.055) 0.535 ng/mL (0.000-0.055) 0.704 ng/mL (0.000-0.055) GT-Zah-Y-Type Natriuretic Peptide > 96944 pg/mL (0-124) Total Protein 8.3 g/dL (6.4-8.2) Albumin 3.6 g/dL (3.4-5.0) Albumin/Globulin Ratio 0.8 (1.0-1.7) Influenza Type A Antigen Negative (NEGATIVE) Influenza Type B Antigen Negative (NEGATIVE) Test 02/10/17 07:45 Troponin I Quantitative 0.744 ng/mL (0.000-0.055) Assessment/Plan Assessment/Plan IMP VOLUME OVERLOAD PNEUMONIA ANEMIA ESRD PLAN HD EMERGENTLY LAST NIGHT ANTIBIOTICS HD MWF MARIFER CRENSHAW MD February 10, 2017 11:13
[2017-02-10] MEDS: LISINOPRIL 40 MG TABLET. PO SCH ×2 (12:19→21:28)
--- NOTE | 2017-02-10 16:42 | CARD ---
APPROVED REPORT EXAM: Two-dimensional and M-mode echocardiogram with Doppler and color Doppler. Other Information Quality : Good INDICATION Congestive Heart Failure 2D DIMENSIONS RVDd3.7 (2.9-3.5cm)Left Atrium(2D)4.7 (1.6-4.0cm) IVSd1.5 (0.7-1.1cm)Aortic Root(2D)2.6 (2.0-3.7cm) LVDd4.1 (3.9-5.9cm)LVOT Diameter1.9 (1.8-2.4cm) PWd1.4 (0.7-1.1cm)LVDs3.0 (2.5-4.0cm) FS (%) 26.8 %SV39.8 ml LVEF(%)52.8 (>50%) Aortic Valve AoV Peak Adelfo.180.9cm/sAoV VTI41.5cm AO Peak GR.13.1mmHgLVOT Peak Adelfo.85.3cm/s LVOT VTI 19.32cmAO Mean GR.8mmHg NASRA (VMAX)1.82tn7LAR (VTI)1.50cm2 Mitral Valve MV E Eplpmgrh836.1cm/sMV DECEL VTPW698hz MV A Wfuximsu316.3cm/sMV AZX82sz E/A Ratio0.8MVA (PHT)2.77cm2 TDI E/Lateral E'33.2E/Medial E'26.9 Tricuspid Valve TR P. Frmkmahf745dn/sRAP JPLHTTRM1hmQr TR Peak Gr.13dsIfZGSA77gnTy LEFT VENTRICLE The left ventricle is normal size. There is mild to moderate concentric left ventricular hypertrophy. The left ventricular systolic function is normal and the ejection fraction is within normal range. T he Ejection Fraction is 60-65%. There is normal LV segmental wall motion. Tissue Doppler imaging reve als mild left ventricular diastolic dysfunction. RIGHT VENTRICLE The right ventricle is normal size. The right ventricular systolic function is normal. ATRIA The left atrium is mild to moderately dilated. The right atrium size is normal. The interatrial septu m is intact with no evidence for an atrial septal defect or patent foramen ovale as noted on 2-D or D oppler imaging. AORTIC VALVE The aortic valve is mildly thickened. Doppler and Color Flow revealed trace aortic regurgitation. The re is no significant aortic valvular stenosis. MITRAL VALVE The mitral valve is moderately thickened. The posterior mitral leaflet appears to be immobile. Mitral annular calcification is mild. There is no evidence of mitral valve prolapse. There is no significan t mitral valve stenosis. Doppler and Color-flow revealed mild mitral regurgitation. TRICUSPID VALVE The tricuspid valve is normal in structure and function. Doppler and Color Flow revealed mild tricusp id regurgitation. There is moderate pulmonary hypertension. The PA pressure was estimated at 49 mmHg. There is no tricuspid valve stenosis. PULMONIC VALVE Doppler and Color Flow revealed trace pulmonic valvular regurgitation. There is no pulmonic valvular stenosis. GREAT VESSELS The aortic root is normal in size. The ascending aorta is normal in size. The IVC is normal in size a nd collapses >50% with inspiration. PERICARDIAL EFFUSION There is a trace circumferential pericardial effusion. Critical Notification Critical Value: No <Conclusion> The left ventricular systolic function is normal and the ejection fraction is within normal range. Th e Ejection Fraction is 60-65%. There is normal LV segmental wall motion. Doppler and Color Flow revealed mild tricuspid regurgitation. There is moderate pulmonary hypertensio n. The PA pressure was estimated at 49 mmHg. There is a trace circumferential pericardial effusion.
[2017-02-10] MEDS: CINACALCET HCL 30 MG TABLET PO SCH (18:33)
[2017-02-10] MEDS: LATANOPROST 0.005% OPHTH SOLUTION 2.5ML BOTTLE. OU SCH (21:27)
[2017-02-10] MEDS: ZOLPIDEM 5 MG TABLET. PO PRN (21:32)
[2017-02-10] MEDS: DARBEPOETIN ALFA 60 MCG/0.3 ML DISP.SYRIN. SQ SCH (21:34)
[2017-02-10] MEDS: HEPARIN PF for SUB-Q USE 5,000 UNIT/0.5 ML VIAL. SQ SCH (21:49)
[2017-02-11 02:17] VITALS: BP 150/65
[2017-02-11 04:55] LABS: HEMATOCRIT 28.6 % (36.0-47.0); HEMOGLOBIN 10.1 g/dL (12.0-15.5); RED BLOOD COUNT 3.16 x10^6/uL (3.50-5.40); RED CELL DISTRIBUTION WIDTH 15.4 % (11.5-14.5); WHITE BLOOD COUNT 4.5 x10^3/uL (4.0-11.0)
[2017-02-11 05:22] LABS: CALCIUM 7.8 mg/dL (8.5-10.1); GFR 5.3; POTASSIUM 4.2 mmol/L (3.5-5.1)
[2017-02-11] MEDS: ONDANSETRON ODT 4 MG TAB.RAPDIS. PO SCH ×5 (06:00→18:15)
[2017-02-11] MEDS: PIPERACILLIN/TAZOBACTAM 2.25 GM in IV NORMAL SALINE 50ML 50 ML IV SCH ×3 (06:08→21:18)
--- NOTE | 2017-02-11 06:49 | HP ---
ADMIT DATE: 02/09/2017 PATIENT LOCATION: [facility] REASON FOR ADMISSION TO THE HOSPITAL: Shortness of breath, fever, possible underlying pneumonia with heart failure. HISTORY OF PRESENT ILLNESS: The patient is a 71-year-old female patient who has a history of kidney disease, on dialysis and she also had diastolic dysfunction, moderate mitral regurgitation. She was having cough and fever. She was supposed to go to dialysis, but they did send her to the hospital and was in heart failure with low-grade fever, possible pneumonia. The patient was given antibiotics and she was dialyzed last night here. OTHER PAST MEDICAL HISTORY: History of hypertension, kidney failure, diastolic heart failure, arthritis. PAST SURGICAL HISTORY: Bilateral knee replacement, AV fistula, right-sided breast biopsy, carpal tunnel and has AV shunt for dialysis access. ALLERGIES: OPIOIDS, MORPHINE, DEMEROL, METHADONE, CHLORHEXIDINE, CODEINE. MEDICATIONS AT HOME: The patient is on amlodipine 10 mg, Coreg 25 mg twice a day, Sensipar 30 mg daily, clonidine 0.1 p.r.n., folic acid daily, eyedrops 0.5 twice a day, lisinopril 40 mg twice a day, Nasonex twice a day, Zofran for nausea, Protonix 40 mg daily, Renvela 800 mg 3 times daily, Carafate 1 g 3 times daily, Nexium 40 mg daily, Ambien 5 mg daily. PERSONAL HISTORY: No history of smoking, alcohol or drug abuse. FAMILY HISTORY: Positive for heart disease, hypertension and kidney problems. REVIEW OF SYMPTOMS: Complains of fever, congestion and chills yesterday, but she is feeling better. Rest of the 14 systems reviewed. PHYSICAL EXAMINATION: VITAL SIGNS: Temperature 100.1, pulse 102, respirations 28, blood pressure 122/88, 90% on room air. HEENT: Head is atraumatic. Pupils equal. Oral cavity: No congestion. NECK: Supple. Thyroid not enlarged. JVD not elevated. CHEST: Symmetrical. Has a PermCath rt side of the chest for dialysis. No infection. CARDIOVASCULAR: S1, S2. LUNGS: Crackles at the bases. ABDOMEN: Soft, bowel sounds present, no mass palpable. EXTERNAL GENITALIA: No Holloway. RECTAL: Deferred. EXTREMITIES: Scars of bilateral knee surgeries. No calf tenderness. No edema. Pulses 1+. NEUROLOGIC: Cranial nerves intact. Power 5/5 in all extremities. LABORATORY DATA: Shows a white count of 8, hemoglobin 12, platelets 163. Electrolytes show sodium 138, potassium 4.6, chloride 100, bicarb 17, BUN 60, creatinine 10.6, glucose 105. LFTs normal. Troponin 0.5. INR is 1.3. Influenza A and B was negative. Chest x-ray shows pulmonary edema/infiltrates in the lungs. EKG done, report is pending. FINAL IMPRESSION: 1. Fever with shortness of breath, possibility of underlying pneumonia. 2. Congestive heart failure/pulmonary edema. 3. Moderate mitral regurgitation on echocardiogram last year. 4. End-stage renal disease, on hemodialysis. 5. Hypertension. 6. History of bilateral knee replacements. PLAN: At this time, was admitted to the hospital. Influenza A and B was done, negative. Broad-spectrum antibiotics, vancomycin 1 dose and Zosyn. Sputum cultures, breathing treatments and the patient is also to get dialyzed today, seen by Cardiology, borderline elevated troponin. We will do an echocardiogram and see how that improves. YARY FAIRCHILD MD DR: SAM/kailee JOB#: [id number] / [id number] LIN
[2017-02-11] MEDS: SUCRALFATE 1 GM TABLET. PO SCH ×3 (07:35→18:15)
[2017-02-11] MEDS ORDERED: ALBUMIN HUMAN 25% 200 ML IV PRN (07:45)
[2017-02-11] MEDS ORDERED: DIALYSIS PATIENT. MC PRN (07:45)
[2017-02-11] MEDS ORDERED: IV NORMAL SALINE 1000ML BAG 1,000 ML IV PRN ×2 (07:45)
[2017-02-11] MEDS ORDERED: diphenhydrAMINE 50 MG/ML VIAL IV PRN ×2 (07:45)
[2017-02-11] MEDS ORDERED: 0.9 % SODIUM CHLORIDE 10 ML DISP.SYRIN. IV PRN ×2 (07:45)
[2017-02-11] MEDS: SEVELAMER CARBONATE 800 MG TABLET. PO SCH ×3 (08:00→18:15)
[2017-02-11] MEDS: CARVEDILOL 12.5 MG TABLET. PO SCH ×2 (08:00→18:16)
[2017-02-11] MEDS: IPRATRPIUM/ALBUTEROL 0.5/2.5MG 3 ML NEBU. NEB SCH ×4 (08:40→19:35)
[2017-02-11] MEDS ORDERED: NON FORMULARY ITEM (Esomeprazole Magnesium (Nexium Capsule) 1 CAP) PO SCH (09:00)
[2017-02-11] MEDS: FLUTICASONE 50MCG/NASAL SPRAY 16GM BOTTLE. NS SCH (09:00)
[2017-02-11] MEDS: amLODIPine BESYLATE 10 MG TABLET PO SCH (09:00)
[2017-02-11] MEDS: LISINOPRIL 40 MG TABLET. PO SCH ×2 (09:00→21:13)
[2017-02-11] MEDS: FOLIC/VIT B COMP W-C (RENAL) TABLET. PO SCH (09:00)
[2017-02-11] MEDS: HEPARIN PF for SUB-Q USE 5,000 UNIT/0.5 ML VIAL. SQ SCH ×2 (09:00→21:18)
--- NOTE | 2017-02-11 09:12 | PDOC ---
Infectious Disease Note Vital Sign Vital Signs Vital Signs Date Time Temp Pulse Resp B/P (MAP) Pulse Ox O2 Delivery O2 Flow Rate FiO2 02/11/17 08:40 99 Nasal Cannula 2.0 02/11/17 02:17 99.0 68 22 150/65 (93) 99.0 Labs Lab Laboratory Tests Test 02/11/17 03:40 White Blood Count 4.5 x10^3/uL (4.0-11.0) Red Blood Count 3.16 x10^6/uL (3.50-5.40) Hemoglobin 10.1 g/dL (12.0-15.5) Hematocrit 28.6 % (36.0-47.0) Mean Corpuscular Volume 91 fL (79-100) Mean Corpuscular Hemoglobin 32 pg (25-35) Mean Corpuscular Hemoglobin Concent 35 g/dL (31-37) Red Cell Distribution Width 15.4 % (11.5-14.5) Platelet Count 104 x10^3/uL (140-400) Sodium Level 138 mmol/L (136-145) Potassium Level 4.2 mmol/L (3.5-5.1) Chloride Level 99 mmol/L (98-107) Carbon Dioxide Level 23 mmol/L (21-32) Anion Gap 16 (6-14) Blood Urea Nitrogen 54 mg/dL (7-20) Creatinine 9.0 mg/dL (0.6-1.0) Estimated GFR (Cockcroft-Gault) 5.3 Glucose Level 98 mg/dL (70-99) Calcium Level 7.8 mg/dL (8.5-10.1) Objective Assessment G neg chaya bacteremia, ? origin, ? from HD cath vs abdomen ESRD on HD Pulmonary edema Fever HTN CHF Plan Plan of Care cont zosyn get ct abd and pelvis supportive care follow culture MALOU IBARRA MD February 11, 2017 09:12
[2017-02-11] MEDS: PANTOPRAZOLE 40 MG TABLET.DR. PO SCH (09:42)
--- NOTE | 2017-02-11 10:02 | PDOC ---
Renal-Progress Notes Subjective Notes Notes FEELING COLD History of Present Illness Hx of present illness STABLE Vitals Vitals Vital Signs Date Time Temp Pulse Resp B/P (MAP) Pulse Ox O2 Delivery O2 Flow Rate FiO2 02/11/17 08:40 99 Nasal Cannula 2.0 02/11/17 02:17 99.0 68 22 150/65 (93) 99.0 Weight Weight [ ] I.O. Intake and Output Intake and Output 02/11/17 07:00 Intake Total 755 ml Output Total 50 ml Balance 705 ml Intake Oral 655 ml IV Total 100 ml Output Urine Total 50 ml # Voids 1 Labs Labs Laboratory Tests Test 02/11/17 03:40 White Blood Count 4.5 x10^3/uL (4.0-11.0) Red Blood Count 3.16 x10^6/uL (3.50-5.40) Hemoglobin 10.1 g/dL (12.0-15.5) Hematocrit 28.6 % (36.0-47.0) Mean Corpuscular Volume 91 fL (79-100) Mean Corpuscular Hemoglobin 32 pg (25-35) Mean Corpuscular Hemoglobin Concent 35 g/dL (31-37) Red Cell Distribution Width 15.4 % (11.5-14.5) Platelet Count 104 x10^3/uL (140-400) Sodium Level 138 mmol/L (136-145) Potassium Level 4.2 mmol/L (3.5-5.1) Chloride Level 99 mmol/L (98-107) Carbon Dioxide Level 23 mmol/L (21-32) Anion Gap 16 (6-14) Blood Urea Nitrogen 54 mg/dL (7-20) Creatinine 9.0 mg/dL (0.6-1.0) Estimated GFR (Cockcroft-Gault) 5.3 Glucose Level 98 mg/dL (70-99) Calcium Level 7.8 mg/dL (8.5-10.1) Micro Micro Microbiology 02/09/17 Blood Culture - Final, Complete Review of Systems Constitutional: yes: chills, alert, oriented Cardiovascular: Yes no symptom reported Gastrointestional: Yes: constipation Genitourinary: Yes: no symptom reported Musculoskeletal: Yes: muscle stiffness Skin: Yes no symptom reported Psychiatric/Neurological: Yes: no symptom reported Physical Exam General Appearance: no apparent distress Skin: warm Respiratory: decreased breath sounds Heart: S1S2, RRR Abdomen: soft Neurology: alert, oriented Musculoskeletal: Osteoarthritis Assessment Assessment IMP PNEUMONIA ANEMIA ESRD PLAN HD TODAY UF TO DW ANTIBIOTICS MARIFER METZ MD February 11, 2017 10:02
--- NOTE | 2017-02-11 10:06 | PDOC ---
PROGRESS NOTES Subjective Subjective has been chilling today at dialysis unit Objective Objective Vital Signs Date Time Temp Pulse Resp B/P (MAP) Pulse Ox O2 Delivery O2 Flow Rate FiO2 02/11/17 08:40 99 Nasal Cannula 2.0 02/11/17 02:17 99.0 68 22 150/65 (93) 99.0 Intake and Output 02/11/17 07:00 Intake Total 755 ml Output Total 50 ml Balance 705 ml Intake Oral 655 ml IV Total 100 ml Output Urine Total 50 ml # Voids 1 Physical Exam Abdomen: Normal bowel sounds, No tenderness Heart: Regular rate, Normal S1 General: Alert, Oriented X3, Cooperative, No acute distress HEENT: Atraumatic, PERRLA, EOMI Lungs: Other (BASILAR RALES) MUSCULOSKELETAL: No deformity Neuro: Normal speech, Cranial nerves 3-12 NL Psych/Mental Status: Mental status NL, Mood NL Skin: No rashes Diagnosis Problem List Problems Medical Problems: (1) Acute CHF Status: Acute (2) Pneumonia Status: Acute Assessment Assessment Problems Medical Problems: (1) Acute CHF Status: Acute (2) Pneumonia Status: Acute FINAL IMPRESSION:Positive blood c/s, gram neg rods1 out of 4 bottles 1. Fever with shortness of breath, possibility of underlying pneumonia. 2. Congestive heart failure/pulmonary edema. 3. Moderate mitral regurgitation on echocardiogram last year. 4. End-stage renal disease, on hemodialysis. 5. Hypertension. 6. History of bilateral knee replacements. PLAN: iv zosyn. ID consult.spoke with Ct scan abd and pelvis.r/o abd pathology. Echo good lvf60% At this time, was admitted to the hospital. Influenza A and B was done, negative. Broad-spectrum antibiotics, vancomycin 1 dose and Zosyn. Sputum cultures, breathing treatments and the patient is also to get dialyzed today, seen by Cardiology, borderline elevated troponin. We will do an echocardiogram and see how that improves. Problems: Plan Plan of Care Problems Medical Problems: (1) Acute CHF Status: Acute (2) Pneumonia Status: Acute Comment Review of Relevant I have reviewed the following items dorina (where applicable) has been applied. Labs Laboratory Tests Test 02/11/17 03:40 White Blood Count 4.5 x10^3/uL (4.0-11.0) Red Blood Count 3.16 x10^6/uL (3.50-5.40) Hemoglobin 10.1 g/dL (12.0-15.5) Hematocrit 28.6 % (36.0-47.0) Mean Corpuscular Volume 91 fL (79-100) Mean Corpuscular Hemoglobin 32 pg (25-35) Mean Corpuscular Hemoglobin Concent 35 g/dL (31-37) Red Cell Distribution Width 15.4 % (11.5-14.5) Platelet Count 104 x10^3/uL (140-400) Sodium Level 138 mmol/L (136-145) Potassium Level 4.2 mmol/L (3.5-5.1) Chloride Level 99 mmol/L (98-107) Carbon Dioxide Level 23 mmol/L (21-32) Anion Gap 16 (6-14) Blood Urea Nitrogen 54 mg/dL (7-20) Creatinine 9.0 mg/dL (0.6-1.0) Estimated GFR (Cockcroft-Gault) 5.3 Glucose Level 98 mg/dL (70-99) Calcium Level 7.8 mg/dL (8.5-10.1) Microbiology 02/09/17 Blood Culture - Final, Complete Medications Current Medications Albumin Human 200 ml @ 200 mls/hr 1X PRN PRN IV Hypotension; Start 02/11/17 at 07:45; Stop 02/11/17 at 13:44 Cinacalcet (Sensipar) 30 mg DAILYWLUN PO Last administered on 02/10/17 18:33; Start 02/10/17 at 12:00 Darbepoetin Narciso (Aranesp) 60 mcg Tu SQ Last administered on 02/10/17 21:34; Start 02/10/17 at 21:00 Diphenhydramine HCl (Benadryl) 25 mg 1X PRN PRN IV ITCHING; Start 02/11/17 at 07:45; Stop 02/12/17 at 07:44 Diphenhydramine HCl (Benadryl) 25 mg 1X PRN PRN IV ITCHING; Start 02/11/17 at 07:45; Stop 02/12/17 at 07:44 Heparin Sodium (Porcine) (Heparin Sq) 5,000 unit Q12HR SQ Last administered on 02/10/17 21:49; Start 02/10/17 at 21:00 Info (PHARMACY MONITORING -- do not chart) 1 each PRN DAILY PRN MC SEE COMMENTS ; Start 02/11/17 at 07:45; Status UNV Latanoprost (Xalatan) 1 drop QHS OU Last administered on 02/10/17 21:27; Start 02/10/17 at 21:00 Lisinopril (Prinivil) 40 mg BID PO Last administered on 02/10/17 21:28; Start 02/10/17 at 11:00 Non-Formulary Medication 1 cap DAILY PO ; Start 02/11/17 at 09:00; Status UNV Sodium Chloride 1,000 ml @ 400 mls/hr Q2H30M PRN IV PATENCY; Start 02/11/17 at 07:45; Stop 02/11/17 at 19:44 Sodium Chloride 1,000 ml @ 1,000 mls/hr Q1H PRN IV hypotension; Start 02/11/17 at 07:45; Stop 02/11/17 at 13:44 Sodium Chloride (Normal Saline Flush) 10 ml 1X PRN PRN IV AP catheter pack; Start 02/11/17 at 07:45; Stop 02/12/17 at 07:44 Sodium Chloride (Normal Saline Flush) 10 ml 1X PRN PRN IV TYPIST catheter pack; Start 02/11/17 at 07:45; Stop 02/12/17 at 07:44 Zolpidem Tartrate (Ambien) 5 mg PRN QHS PRN PO INSOMNIA Last administered on 21:32; Start 02/10/17 at 14:15 Vitals/I & O Vital Sign - Last 24 Hours 02/10/17 02/10/17 02/10/17 02/10/17 11:21 12:19 15:07 15:42 Temp 98.2 98.2 Pulse 62 62 Resp 19 B/P (MAP) 158/74 112/55 (74) Pulse Ox 93 O2 Delivery Nasal Cannula Nasal Cannula Nasal Cannula O2 Flow Rate 2.0 2.0 3.0 02/10/17 02/10/17 02/10/17 02/10/17 18:34 19:45 19:51 20:00 Temp 98.0 98.0 Pulse 64 83 Resp 22 B/P (MAP) 112/55 130/70 (90) Pulse Ox 96 94 O2 Delivery Nasal Cannula Nasal Cannula Nasal Cannula O2 Flow Rate 2.0 3.0 2.0 02/10/17 02/10/17 02/11/17 02/11/17 21:28 22:33 02:17 08:00 Temp 98.8 99.0 98.8 99.0 Pulse 83 58 68 Resp 19 22 B/P (MAP) 130/70 142/66 (91) 150/65 (93) Pulse Ox 92 94 O2 Delivery Nasal Cannula Nasal Cannula Nasal Cannula O2 Flow Rate 3.0 3.0 2.0 02/11/17 08:40 Pulse Ox 99 O2 Delivery Nasal Cannula O2 Flow Rate 2.0 Intake and Output 02/10/17 02/10/17 02/11/17 15:00 23:00 07:00 Intake Total 425 ml 330 ml Output Total 50 ml Balance 375 ml 330 ml Nutrition Consultation Dietary Evaluation: Recommendations by RD: Increase Calorie Intake Comments: Continue nutrition care plan pt refuses protein supplement provided alternate menu discussed the renal diet Expected Outcomes/Goals: meet 75% estimated nutrition needs Malnutrition Findings: Weight Status: Overweight YARY FAIRCHILD MD February 11, 2017 10:06
[2017-02-11] MEDS: diazePAM 5 MG TABLET PO PRN (10:23)
--- NOTE | 2017-02-11 11:10 | PDOC ---
BRIAN MEDINA BAD CREDIT COLLECTOR 02/11/17 1110: CARDIO Progress Notes Date and Time Date of Service 02/11/17 Subjective Subjective: No Chest Pain, No shortness of breath Vitals Vitals Vital Signs Date Time Temp Pulse Resp B/P (MAP) Pulse Ox O2 Delivery O2 Flow Rate FiO2 02/11/17 08:40 99 Nasal Cannula 2.0 02/11/17 02:17 99.0 68 22 150/65 (93) 99.0 Weight Weight [ ] Input and Output Intake and Output Intake and Output 02/11/17 07:00 Intake Total 755 ml Output Total 50 ml Balance 705 ml Intake Oral 655 ml IV Total 100 ml Output Urine Total 50 ml # Voids 1 Laboratory Labs Laboratory Tests Test 02/11/17 03:40 White Blood Count 4.5 x10^3/uL (4.0-11.0) Red Blood Count 3.16 x10^6/uL (3.50-5.40) Hemoglobin 10.1 g/dL (12.0-15.5) Hematocrit 28.6 % (36.0-47.0) Mean Corpuscular Volume 91 fL (79-100) Mean Corpuscular Hemoglobin 32 pg (25-35) Mean Corpuscular Hemoglobin Concent 35 g/dL (31-37) Red Cell Distribution Width 15.4 % (11.5-14.5) Platelet Count 104 x10^3/uL (140-400) Sodium Level 138 mmol/L (136-145) Potassium Level 4.2 mmol/L (3.5-5.1) Chloride Level 99 mmol/L (98-107) Carbon Dioxide Level 23 mmol/L (21-32) Anion Gap 16 (6-14) Blood Urea Nitrogen 54 mg/dL (7-20) Creatinine 9.0 mg/dL (0.6-1.0) Estimated GFR (Cockcroft-Gault) 5.3 Glucose Level 98 mg/dL (70-99) Calcium Level 7.8 mg/dL (8.5-10.1) Microbiology Micro Microbiology 02/09/17 Blood Culture - Final, Complete Review of Systems Constitutional: yes: chills, alert, oriented Cardiovascular: Yes no symptom reported Gastrointestional: Yes: constipation Genitourinary: Yes: no symptom reported Musculoskeletal: Yes: muscle stiffness Skin: Yes no symptom reported Psychiatric/Neurological: Yes: no symptom reported Physical Exam HEENT: Neck Supple W Full Motion Chest: Symmetric LUNGS: Clear to Auscultation Heart: murmurs (3/6 systolic murmur ) Abdomen: Soft N/T Extremities: Other (RUE fistula + bruit/thrill)) Neurology: alert, oriented, follow commands Assessment Assessment 1. Acute on chronic diastolic heart failure 2. Hypertensive urgency; BP remains labile 3. Mild troponin elevation 4. Dyspnea 5. Pulmonary HTN; PAP 49 6. ESRD on HD 7. Anemia 8. DM Recommendations Echo WNL. Will add scheduled hydralazine for better BP control Consider for renal duplex to r/o IRENA, if not previously done Continue fluid offloading via HD as per nephrology. Supportive care from a CV perspective ARELY JARAMILLO MD 02/11/17 2225: CARDIO Progress Notes Plan Plan Pt. seen and examined. Agree with above [employer] MECH[employer]IC note. Fever on HD today. No SOA. Echo wnl. Still hypertensive. Med titration continuing. Will plan for outpt f/u. No further CV recs. Abdoulayex BRIAN MEDINA APRN February 11, 2017 11:10 ARELY JARAMILLO MD February 11, 2017 22:25
[2017-02-11] MEDS ORDERED: CONTRAST GIVEN MC PRN (11:30)
[2017-02-11] MEDS ORDERED: IOHEXOL 240 MG/ML 50ML VIAL. PO ONE (11:30)
[2017-02-11] MEDS: CINACALCET HCL 30 MG TABLET PO SCH (12:00)
[2017-02-11] MEDS: ACETAMINOPHEN 325 MG TABLET. PO PRN (13:32)
[2017-02-11 15:00] VITALS: BP 172/77
--- NOTE | 2017-02-11 15:22 | RAD ---
Indication sepsis. Assess for occult infection. Axial images through the abdomen and pelvis were obtained. Oral contrast was administered. IV contrast was not. Note is made of a previous examination of the abdomen 02/26/2016. There is a trace amount of pleural fluid at each lung base. The lung bases are otherwise unremarkable. There is a small periumbilical hernia which appears incidental and uncomplicated. The liver and spleen appear unremarkable. The pancreas appears unremarkable. No significant adrenal finding is seen. The [place] kidneys are quite small similar to the previous exam. There are bilateral renal masses compatible with cysts similar to the previous exam. A cyst, probably complicated, associated with the right kidney appears similar to the previous exam A focal mass inflammatory process or acute finding within the abdomen is not seen. The uterus is enlarged and contains multiple calcifications similar to the previous exam. The findings are compatible with an enlarged, fibroid, uterus. The appendix is seen in the right lower quadrant and appears normal . There are degenerative changes in the lumbar spine. IMPRESSION: No acute finding seen in the abdomen or pelvis
[2017-02-11 19:30] VITALS: BP 162/79
[2017-02-11] MEDS: LATANOPROST 0.005% OPHTH SOLUTION 2.5ML BOTTLE. OU SCH (21:10)
[2017-02-11] MEDS: ZOLPIDEM 5 MG TABLET. PO PRN (21:20)
[2017-02-11 23:30] VITALS: BP 169/86
[2017-02-12] MEDS: ONDANSETRON ODT 4 MG TAB.RAPDIS. PO SCH ×4 (02:32→17:22)
[2017-02-12 03:30] VITALS: BP 175/84
--- NOTE | 2017-02-12 04:18 | CONS ---
DATE OF CONSULTATION: 02/11/2017 REQUESTING PHYSICIAN: Dr. Bunch. REASON FOR CONSULTATION: Gram-negative chaya bacteremia. HISTORY OF PRESENT ILLNESS: This is a 71-year-old -[place] female with history of end-stage renal disease on hemodialysis for 10 years. The patient has had fistula, which stopped working. Hence, now she has a new dialysis catheter 2 weeks old. The patient came in with having shortness of breath, fever, not feeling well, some dry cough. The patient has been put on Zosyn. The patient says she is feeling better. Denies any nausea, vomiting or diarrhea. Denies any urinary symptoms. She does not get any urine, she says. Denies any chest pain. She does have some abdominal discomfort, which she does not how to describe. She says she does not have any pain, but is something not right, she says. PAST MEDICAL HISTORY: Positive for end-stage renal disease on hemodialysis. The patient has congestive heart failure, arthritis, hypertension, bilateral knee replacement done. AV fistula done, carpal tunnel surgery done. SOCIAL HISTORY: Negative for smoking, alcohol or illicit drug use. ALLERGIES: LISTED ALLERGIC TO OPIOIDS. CURRENT MEDICATIONS: The patient is on Zosyn. REVIEW OF SYSTEMS: As per HPI, all other systems reviewed are negative. PHYSICAL EXAMINATION: GENERAL: Alert, oriented female, not in distress. VITAL SIGNS: Stable, afebrile. HEENT: NAD. NECK: Supple, no JVP, no lymphadenopathy. LUNGS: Clear. HEART: S1, S2 regular. ABDOMEN: Benign. EXTREMITIES: No edema or cyanosis. SKIN: Unremarkable. Hemodialysis catheter site is not showing any obvious infection. NEUROLOGIC: The patient is neurologically intact. LABORATORY DATA: White count is normal at 4.5, platelets 104,000. BUN 54, creatinine 9. Influenza screen was negative. Blood culture is positive with gram-negative chaya. Identification is pending. Chest x-ray showed bilateral pulmonary vascular congestion. IMPRESSION: 1. Gram-negative chaya bacteremia, origin is unclear. It could be dialysis catheter, it could be abdominal source. 2. End-stage renal disease, on hemodialysis. 3. Pulmonary edema. 4. Fever. 5. Hypertension. 6. Congestive heart failure. RECOMMENDATIONS: Continuing Zosyn. We will get CT abdomen and pelvis, supportive care, follow the cultures and left further recommendation ____. Thank you very much, Dr. Bunch, for giving me the opportunity to participate in this patient's care. MALOU IBARRA MD DR: DINA/kailee JOB#: [id number] / [id number]
[2017-02-12 04:35] LABS: BASO % 1 % (0-3); EOS % 1 % (0-3); HEMATOCRIT 31.2 % (36.0-47.0); HEMOGLOBIN 10.7 g/dL (12.0-15.5); LYMPH # 0.5 x10^3/uL (1.0-4.8); LYMPH % 10 % (24-48); MEAN CORPUSCULAR HEMOGLOBIN 31 pg (25-35); MEAN CORPUSCULAR HGB CONC 34 g/dL (31-37); MEAN CORPUSCULAR VOLUME 91 fL (79-100); MONO % 10 % (0-9); NEUT % 78 % (31-73); PLATELET COUNT 104 x10^3/uL (140-400); RED BLOOD COUNT 3.42 x10^6/uL (3.50-5.40); WHITE BLOOD COUNT 4.8 x10^3/uL (4.0-11.0)
[2017-02-12 04:40] LABS: CALCIUM 8.3 mg/dL (8.5-10.1); CREATININE 5.9 mg/dL (0.6-1.0); GFR 8.6; POTASSIUM 3.7 mmol/L (3.5-5.1)
[2017-02-12] MEDS: PIPERACILLIN/TAZOBACTAM 2.25 GM in IV NORMAL SALINE 50ML 50 ML IV SCH ×3 (06:38→22:10)
[2017-02-12 07:00] VITALS: BP 169/74
[2017-02-12] MEDS: IPRATRPIUM/ALBUTEROL 0.5/2.5MG 3 ML NEBU. NEB SCH ×4 (07:44→20:01)
[2017-02-12] MEDS: SEVELAMER CARBONATE 800 MG TABLET. PO SCH ×3 (07:46→17:22)
[2017-02-12] MEDS: FOLIC/VIT B COMP W-C (RENAL) TABLET. PO SCH (07:47)
[2017-02-12] MEDS: SUCRALFATE 1 GM TABLET. PO SCH ×3 (07:47→17:22)
[2017-02-12] MEDS: amLODIPine BESYLATE 10 MG TABLET PO SCH (07:49)
[2017-02-12] MEDS: CARVEDILOL 12.5 MG TABLET. PO SCH ×2 (07:50→17:22)
[2017-02-12] MEDS: LISINOPRIL 40 MG TABLET. PO SCH ×2 (07:50→20:43)
[2017-02-12] MEDS: PANTOPRAZOLE 40 MG TABLET.DR. PO SCH (07:50)
[2017-02-12] MEDS: HEPARIN PF for SUB-Q USE 5,000 UNIT/0.5 ML VIAL. SQ SCH ×2 (07:51→20:48)
[2017-02-12] MEDS: FLUTICASONE 50MCG/NASAL SPRAY 16GM BOTTLE. NS SCH (07:52)
--- NOTE | 2017-02-12 07:56 | PDOC ---
Infectious Disease Note Subjective Subjective feeling good ROS ROS GEN: Denies fevers, chills, sweats HEENT: Denies blurred vision, sore throat CV: Denies chest pain RESP: Denies shortness of air, cough GI: Denies n/v/d NEURO: Denies confusion, dizziness MSK: Denies weakness, joint pain/swelling Vital Sign Vital Signs Vital Signs Date Time Temp Pulse Resp B/P (MAP) Pulse Ox O2 Delivery O2 Flow Rate FiO2 02/12/17 07:52 63 169/74 02/12/17 07:45 97 Room Air 02/12/17 03:30 97.8 14 3.0 97.8 Physical Exam PHYSICAL EXAM GENERAL: NAD, Alert HEENT: PERRL, OC/OP NECK: Supple, no JVD, no LN LUNGS: Clear HEART: S1S2, no gallop, no murmur ABD: Soft, NT, no organomegaly, no rebound EXT: No edema, no cyanosis PEARL TECHNICIAN: Alert, oriented x 3, no focal neurologic deficit SKIN: No rash IV: ok Labs Lab Laboratory Tests Test 02/12/17 03:30 White Blood Count 4.8 x10^3/uL (4.0-11.0) Red Blood Count 3.42 x10^6/uL (3.50-5.40) Hemoglobin 10.7 g/dL (12.0-15.5) Hematocrit 31.2 % (36.0-47.0) Mean Corpuscular Volume 91 fL (79-100) Mean Corpuscular Hemoglobin 31 pg (25-35) Mean Corpuscular Hemoglobin Concent 34 g/dL (31-37) Red Cell Distribution Width 15.0 % (11.5-14.5) Platelet Count 104 x10^3/uL (140-400) Neutrophils (%) (Auto) 78 % (31-73) Lymphocytes (%) (Auto) 10 % (24-48) Monocytes (%) (Auto) 10 % (0-9) Eosinophils (%) (Auto) 1 % (0-3) Basophils (%) (Auto) 1 % (0-3) Neutrophils # (Auto) 3.7 x10^3uL (1.8-7.7) Lymphocytes # (Auto) 0.5 x10^3/uL (1.0-4.8) Monocytes # (Auto) 0.5 x10^3/uL (0.0-1.1) Eosinophils # (Auto) 0.1 x10^3/uL (0.0-0.7) Basophils # (Auto) 0.0 x10^3/uL (0.0-0.2) Sodium Level 140 mmol/L (136-145) Potassium Level 3.7 mmol/L (3.5-5.1) Chloride Level 99 mmol/L (98-107) Carbon Dioxide Level 29 mmol/L (21-32) Anion Gap 12 (6-14) Blood Urea Nitrogen 27 mg/dL (7-20) Creatinine 5.9 mg/dL (0.6-1.0) Estimated GFR (Cockcroft-Gault) 8.6 Glucose Level 97 mg/dL (70-99) Calcium Level 8.3 mg/dL (8.5-10.1) Micro G neg chaya ,id pending Objective Assessment G neg chaya bacteremia, ? origin, ? from HD cath vs abdomen ESRD on HD Pulmonary edema Fever HTN CHF Plan Plan of Care cont zosyn supportive care follow culture ct neg MALOU IBARRA MD February 12, 2017 07:56
[2017-02-12 11:00] VITALS: BP 154/67
[2017-02-12] MEDS: CINACALCET HCL 30 MG TABLET PO SCH (11:09)
--- NOTE | 2017-02-12 11:48 | PDOC ---
Renal-Progress Notes Subjective Notes Notes FEELING BETTER History of Present Illness Hx of present illness BETTER Vitals Vitals Vital Signs Date Time Temp Pulse Resp B/P (MAP) Pulse Ox O2 Delivery O2 Flow Rate FiO2 02/12/17 11:38 97 Room Air 02/12/17 07:52 63 169/74 02/12/17 07:00 98.2 16 3.0 98.2 Weight Weight [ ] I.O. Intake and Output Intake and Output 02/12/17 07:00 Intake Total 500 ml Balance 500 ml Intake Oral 500 ml # Voids 1 # Bowel Movements 2 Labs Labs Laboratory Tests Test 02/12/17 03:30 White Blood Count 4.8 x10^3/uL (4.0-11.0) Red Blood Count 3.42 x10^6/uL (3.50-5.40) Hemoglobin 10.7 g/dL (12.0-15.5) Hematocrit 31.2 % (36.0-47.0) Mean Corpuscular Volume 91 fL (79-100) Mean Corpuscular Hemoglobin 31 pg (25-35) Mean Corpuscular Hemoglobin Concent 34 g/dL (31-37) Red Cell Distribution Width 15.0 % (11.5-14.5) Platelet Count 104 x10^3/uL (140-400) Neutrophils (%) (Auto) 78 % (31-73) Lymphocytes (%) (Auto) 10 % (24-48) Monocytes (%) (Auto) 10 % (0-9) Eosinophils (%) (Auto) 1 % (0-3) Basophils (%) (Auto) 1 % (0-3) Neutrophils # (Auto) 3.7 x10^3uL (1.8-7.7) Lymphocytes # (Auto) 0.5 x10^3/uL (1.0-4.8) Monocytes # (Auto) 0.5 x10^3/uL (0.0-1.1) Eosinophils # (Auto) 0.1 x10^3/uL (0.0-0.7) Basophils # (Auto) 0.0 x10^3/uL (0.0-0.2) Sodium Level 140 mmol/L (136-145) Potassium Level 3.7 mmol/L (3.5-5.1) Chloride Level 99 mmol/L (98-107) Carbon Dioxide Level 29 mmol/L (21-32) Anion Gap 12 (6-14) Blood Urea Nitrogen 27 mg/dL (7-20) Creatinine 5.9 mg/dL (0.6-1.0) Estimated GFR (Cockcroft-Gault) 8.6 Glucose Level 97 mg/dL (70-99) Calcium Level 8.3 mg/dL (8.5-10.1) Micro Micro Microbiology 02/09/17 Blood Culture - Preliminary, Resulted 02/09/17 Blood Culture Result 1 (UBALDO) - Preliminary, Resulted Review of Systems Constitutional: yes: chills, alert, oriented Cardiovascular: Yes no symptom reported Gastrointestional: Yes: constipation Genitourinary: Yes: no symptom reported Musculoskeletal: Yes: muscle stiffness Skin: Yes no symptom reported Psychiatric/Neurological: Yes: no symptom reported Physical Exam General Appearance: no apparent distress Skin: warm Respiratory: decreased breath sounds Heart: S1S2, RRR Abdomen: soft Neurology: alert, oriented, follow commands Musculoskeletal: Osteoarthritis Assessment Assessment IMP PNEUMONIA ANEMIA ESRD PLAN HD TOMORROW ANTIBIOTICS MARIFER METZ MD February 12, 2017 11:48
--- NOTE | 2017-02-12 13:20 | RAD ---
Indication difficulty breathing. PA and lateral views of the chest were obtained and are compared to a study 3 days earlier. Heart size is unchanged. Changes of congestive heart failure persist but have improved slightly compared to the previous study. A new finding in the chest is not seen. There is no consolidated pneumonia. There are likely tiny pleural effusions. Right-sided dialysis catheter is noted IMPRESSION: Changes of congestive heart failure persist but appear improved compared to the study 3 days ago
[2017-02-12 15:00] VITALS: BP 128/62
[2017-02-12] MEDS: ACETAMINOPHEN 325 MG TABLET. PO PRN (17:25)
--- NOTE | 2017-02-12 18:07 | PDOC ---
PROGRESS NOTES Subjective Subjective feeling much better today, no chills Objective Objective Vital Signs Date Time Temp Pulse Resp B/P (MAP) Pulse Ox O2 Delivery O2 Flow Rate FiO2 02/12/17 17:22 67 128/62 02/12/17 16:09 96 Room Air 02/12/17 15:00 97.9 16 3.0 97.9 Intake and Output 02/12/17 07:00 Intake Total 500 ml Balance 500 ml Intake Oral 500 ml # Voids 1 # Bowel Movements 2 Physical Exam Abdomen: Normal bowel sounds, No tenderness Heart: Regular rate, Normal S1 General: Alert, Oriented X3, Cooperative, No acute distress HEENT: Atraumatic, PERRLA, EOMI Lungs: Other (BASILAR RALES) MUSCULOSKELETAL: No deformity Neuro: Normal speech, Cranial nerves 3-12 NL Psych/Mental Status: Mental status NL, Mood NL Skin: No rashes Diagnosis Problem List Problems Medical Problems: (1) Acute CHF Status: Acute (2) Pneumonia Status: Acute Assessment Assessment Problems Medical Problems: (1) Acute CHF Status: Acute (2) Pneumonia Status: Acute FINAL IMPRESSION:Positive blood c/s, gram neg rods1 out of 4 bottles 1. Fever with shortness of breath, possibility of underlying pneumonia. 2. Congestive heart failure/pulmonary edema. 3. Moderate mitral regurgitation on echocardiogram last year. 4. End-stage renal disease, on hemodialysis. 5. Hypertension. 6. History of bilateral knee replacements. PLAN:gram neg bacteremia on iv zosyn. ID consult.spoke with Ct scan abd and pelvis-neg. dialysis tomorrow . cxr improving Echo good lvf60% At this time, was admitted to the hospital. Influenza A and B was done, negative. Broad-spectrum antibiotics, vancomycin 1 dose and Zosyn. Sputum cultures, breathing treatments and the patient is also to get dialyzed today, seen by Cardiology, borderline elevated troponin. We will do an echocardiogram and see how that improves. Problems: Plan Plan of Care Problems Medical Problems: (1) Acute CHF Status: Acute (2) Pneumonia Status: Acute Comment Review of Relevant I have reviewed the following items dorina (where applicable) has been applied. Labs Laboratory Tests Test 02/12/17 03:30 White Blood Count 4.8 x10^3/uL (4.0-11.0) Red Blood Count 3.42 x10^6/uL (3.50-5.40) Hemoglobin 10.7 g/dL (12.0-15.5) Hematocrit 31.2 % (36.0-47.0) Mean Corpuscular Volume 91 fL (79-100) Mean Corpuscular Hemoglobin 31 pg (25-35) Mean Corpuscular Hemoglobin Concent 34 g/dL (31-37) Red Cell Distribution Width 15.0 % (11.5-14.5) Platelet Count 104 x10^3/uL (140-400) Neutrophils (%) (Auto) 78 % (31-73) Lymphocytes (%) (Auto) 10 % (24-48) Monocytes (%) (Auto) 10 % (0-9) Eosinophils (%) (Auto) 1 % (0-3) Basophils (%) (Auto) 1 % (0-3) Neutrophils # (Auto) 3.7 x10^3uL (1.8-7.7) Lymphocytes # (Auto) 0.5 x10^3/uL (1.0-4.8) Monocytes # (Auto) 0.5 x10^3/uL (0.0-1.1) Eosinophils # (Auto) 0.1 x10^3/uL (0.0-0.7) Basophils # (Auto) 0.0 x10^3/uL (0.0-0.2) Sodium Level 140 mmol/L (136-145) Potassium Level 3.7 mmol/L (3.5-5.1) Chloride Level 99 mmol/L (98-107) Carbon Dioxide Level 29 mmol/L (21-32) Anion Gap 12 (6-14) Blood Urea Nitrogen 27 mg/dL (7-20) Creatinine 5.9 mg/dL (0.6-1.0) Estimated GFR (Cockcroft-Gault) 8.6 Glucose Level 97 mg/dL (70-99) Calcium Level 8.3 mg/dL (8.5-10.1) Microbiology 02/11/17 Blood Culture - Preliminary, Resulted NO GROWTH AFTER 1 DAY Vitals/I & O Vital Sign - Last 24 Hours 02/11/17 02/11/17 02/11/17 02/11/17 18:16 19:15 19:30 19:37 Temp 98.4 98.4 Pulse 104 78 Resp 16 B/P (MAP) 172/77 162/79 (106) Pulse Ox 99 97 O2 Delivery Nasal Cannula Nasal Cannula Nasal Cannula O2 Flow Rate 3.0 1.0 02/11/17 02/11/17 02/11/17 02/12/17 21:13 21:14 23:30 03:30 Temp 98.6 97.8 98.6 97.8 Pulse 79 79 79 74 Resp 20 14 B/P (MAP) 158/80 158/80 169/86 (113) 175/84 (114) Pulse Ox 99 97 O2 Delivery Room Air Nasal Cannula O2 Flow Rate 3.0 3.0 02/12/17 02/12/17 02/12/17 02/12/17 07:00 07:45 07:49 07:50 Temp 98.2 98.2 Pulse 57 72 71 Resp 16 B/P (MAP) 169/74 (105) 169/74 169/74 Pulse Ox 96 97 O2 Delivery Nasal Cannula Room Air O2 Flow Rate 3.0 02/12/17 02/12/17 02/12/17 02/12/17 07:50 07:52 08:00 11:00 Temp 98.0 98.0 Pulse 63 63 53 Resp 16 B/P (MAP) 169/74 169/74 154/67 (96) Pulse Ox 94 O2 Delivery Nasal Cannula Nasal Cannula O2 Flow Rate 3.0 02/12/17 02/12/17 02/12/17 02/12/17 11:38 15:00 16:09 17:22 Temp 97.9 97.9 Pulse 57 67 Resp 16 B/P (MAP) 128/62 (84) 128/62 Pulse Ox 97 100 96 O2 Delivery Room Air Nasal Cannula Room Air O2 Flow Rate 3.0 Intake and Output 02/11/17 02/11/17 02/12/17 15:00 23:00 07:00 Intake Total 300 ml 200 ml Balance 300 ml 200 ml Nutrition Consultation Dietary Evaluation: Recommendations by RD: Increase Calorie Intake Comments: Continue nutrition care plan pt refuses protein supplement provided alternate menu discussed the renal diet Expected Outcomes/Goals: meet 75% estimated nutrition needs Malnutrition Findings: Weight Status: Overweight YARY FAIRCHILD MD February 12, 2017 18:07
[2017-02-12 19:45] VITALS: BP 163/76
[2017-02-12] MEDS: LATANOPROST 0.005% OPHTH SOLUTION 2.5ML BOTTLE. OU SCH (20:42)
[2017-02-12] MEDS: ZOLPIDEM 5 MG TABLET. PO PRN (20:44)
[2017-02-12 23:39] VITALS: BP 157/82
[2017-02-13 03:11] VITALS: BP 148/73
[2017-02-13] MEDS: PIPERACILLIN/TAZOBACTAM 2.25 GM in IV NORMAL SALINE 50ML 50 ML IV SCH ×3 (05:58→23:09)
[2017-02-13] MEDS: ONDANSETRON ODT 4 MG TAB.RAPDIS. PO SCH ×5 (06:04→23:09)
[2017-02-13] MEDS: IPRATRPIUM/ALBUTEROL 0.5/2.5MG 3 ML NEBU. NEB SCH ×4 (07:24→20:10)
[2017-02-13 07:27] VITALS: BP 193/88
[2017-02-13] MEDS: LISINOPRIL 40 MG TABLET. PO SCH ×2 (07:49→20:57)
[2017-02-13] MEDS: amLODIPine BESYLATE 10 MG TABLET PO SCH (07:49)
[2017-02-13] MEDS: PANTOPRAZOLE 40 MG TABLET.DR. PO SCH (07:50)
[2017-02-13] MEDS: SUCRALFATE 1 GM TABLET. PO SCH ×3 (07:50→17:39)
[2017-02-13] MEDS: FLUTICASONE 50MCG/NASAL SPRAY 16GM BOTTLE. NS SCH (07:51)
[2017-02-13] MEDS: SEVELAMER CARBONATE 800 MG TABLET. PO SCH ×3 (08:00→17:39)
[2017-02-13] MEDS: HEPARIN PF for SUB-Q USE 5,000 UNIT/0.5 ML VIAL. SQ SCH ×2 (09:00→21:07)
[2017-02-13] MEDS: FOLIC/VIT B COMP W-C (RENAL) TABLET. PO SCH (09:00)
[2017-02-13] MEDS ORDERED: IV NORMAL SALINE 1000ML BAG 1,000 ML IV PRN ×2 (09:09)
[2017-02-13] MEDS ORDERED: 0.9 % SODIUM CHLORIDE 10 ML DISP.SYRIN. IV PRN ×2 (09:15)
[2017-02-13] MEDS ORDERED: DIALYSIS PATIENT. MC PRN (09:15)
--- NOTE | 2017-02-13 10:21 | PDOC ---
PROGRESS NOTES Subjective Subjective seen in dialysis does not feel good Objective Objective Vital Signs Date Time Temp Pulse Resp B/P (MAP) Pulse Ox O2 Delivery O2 Flow Rate FiO2 02/13/17 08:00 Room Air 02/13/17 07:49 69 193/88 02/13/17 07:27 97.9 18 97.9 02/13/17 07:27 98 02/13/17 03:11 2.0 Intake and Output 02/13/17 07:00 Intake Total 1340 ml Balance 1340 ml Intake Oral 1340 ml # Voids 2 # Bowel Movements 1 Physical Exam Abdomen: Normal bowel sounds, No tenderness Heart: Regular rate, Normal S1 General: Alert, Oriented X3, Cooperative, No acute distress HEENT: Atraumatic, PERRLA, EOMI Lungs: Other (BASILAR RALES) MUSCULOSKELETAL: No deformity Neuro: Normal speech, Cranial nerves 3-12 NL Psych/Mental Status: Mental status NL, Mood NL Skin: No rashes Diagnosis Problem List Problems Medical Problems: (1) Acute CHF Status: Acute (2) Pneumonia Status: Acute Assessment Assessment Problems Medical Problems: (1) Acute CHF Status: Acute (2) Pneumonia Status: Acute FINAL IMPRESSION:Positive blood c/s, gram neg rods1 out of 4 bottles 1. Fever with shortness of breath, possibility of underlying pneumonia.suspect gram neg. 2. Congestive heart failure/pulmonary edema. 3. Moderate mitral regurgitation on echocardiogram last year. 4. End-stage renal disease, on hemodialysis. 5. Hypertension. 6. History of bilateral knee replacements. PLAN: Dialysis today. pt/ot. gram neg bacteremia , repeat blood c/s neg on iv zosyn. ID consult.spoke with Ct scan abd and pelvis-neg. cxr improving Echo good lvf 60% Problems: Plan Plan of Care Problems Medical Problems: (1) Acute CHF Status: Acute (2) Pneumonia Status: Acute Comment Review of Relevant I have reviewed the following items dorina (where applicable) has been applied. Labs Microbiology 02/11/17 Blood Culture - Preliminary, Resulted NO GROWTH AFTER 1 DAY Medications Current Medications Info (PHARMACY MONITORING -- do not chart) 1 each PRN DAILY PRN MC SEE COMMENTS ; Start 02/13/17 at 09:15 Sodium Chloride 1,000 ml @ 400 mls/hr Q2H30M PRN IV PATENCY; Start 02/13/17 at 09:09; Stop 02/13/17 at 21:08 Sodium Chloride 1,000 ml @ 1,000 mls/hr Q1H PRN IV hypotension; Start 02/13/17 at 09:09; Stop 02/13/17 at 15:08 Sodium Chloride (Normal Saline Flush) 10 ml 1X PRN PRN IV AP catheter pack; Start 02/13/17 at 09:15; Stop 02/14/17 at 09:14 Sodium Chloride (Normal Saline Flush) 10 ml 1X PRN PRN IV SUPERVISOR COMPOSING ROOM catheter pack; Start 02/13/17 at 09:15; Stop 02/14/17 at 09:14 Vitals/I & O Vital Sign - Last 24 Hours 02/12/17 02/12/17 02/12/17 02/12/17 11:00 11:38 15:00 16:09 Temp 98.0 97.9 98.0 97.9 Pulse 53 57 Resp 16 16 B/P (MAP) 154/67 (96) 128/62 (84) Pulse Ox 94 97 100 96 O2 Delivery Nasal Cannula Room Air Nasal Cannula Room Air O2 Flow Rate 3.0 3.0 02/12/17 02/12/17 02/12/17 02/12/17 17:22 19:12 19:45 20:03 Temp 98.2 98.2 Pulse 67 58 Resp 16 B/P (MAP) 128/62 163/76 (105) Pulse Ox 95 100 O2 Delivery Room Air Room Air Room Air 02/12/17 02/12/17 02/12/17 02/13/17 20:43 20:43 23:39 03:11 Temp 98.1 97.8 98.1 97.8 Pulse 58 58 75 66 Resp 16 16 B/P (MAP) 163/76 163/76 157/82 (107) 148/73 (98) Pulse Ox 92 98 O2 Delivery Room Air Nasal Cannula O2 Flow Rate 2.0 02/13/17 02/13/17 02/13/17 02/13/17 07:27 07:27 07:49 07:49 Temp 97.9 97.9 Pulse 69 61 69 Resp 18 B/P (MAP) 193/88 (123) 193/88 193/88 Pulse Ox 98 O2 Delivery Room Air Room Air 02/13/17 02/13/17 07:49 08:00 Pulse 69 B/P (MAP) 193/88 O2 Delivery Room Air Intake and Output 02/12/17 02/12/17 02/13/17 15:00 23:00 07:00 Intake Total 240 ml 500 ml 600 ml Balance 240 ml 500 ml 600 ml Nutrition Consultation Dietary Evaluation: Recommendations by RD: Increase Calorie Intake Comments: Continue nutrition care plan pt refuses protein supplement provided alternate menu discussed the renal diet Expected Outcomes/Goals: meet 75% estimated nutrition needs Malnutrition Findings: Weight Status: Overweight YARY FAIRCHILD MD February 13, 2017 10:21
--- NOTE | 2017-02-13 10:22 | PDOC ---
Infectious Disease Note Subjective Subjective feeling ok ROS ROS GEN: Denies fevers, chills, sweats HEENT: Denies blurred vision, sore throat CV: Denies chest pain RESP: Denies shortness of air, cough GI: Denies n/v/d NEURO: Denies confusion, dizziness MSK: Denies weakness, joint pain/swelling Vital Sign Vital Signs Vital Signs Date Time Temp Pulse Resp B/P (MAP) Pulse Ox O2 Delivery O2 Flow Rate FiO2 02/13/17 08:00 Room Air 02/13/17 07:49 69 193/88 02/13/17 07:27 97.9 18 97.9 02/13/17 07:27 98 02/13/17 03:11 2.0 Physical Exam PHYSICAL EXAM GENERAL: NAD, Alert HEENT: PERRL, OC/OP NECK: Supple, no JVD, no LN LUNGS: Clear HEART: S1S2, no gallop, no murmur ABD: Soft, NT, no organomegaly, no rebound EXT: No edema, no cyanosis TRUST VAULT CUSTODIAN: Alert, oriented x 3, no focal neurologic deficit SKIN: No rash IV: ok Labs Micro BLOOD CULTURE PRL Preliminary Preliminary report BLD CULT RESULT 1 Preliminary Comment Pseudomonas aeruginosa Recovered from aerobic bottle only. ANTIMICROBIAL SUSCEPTIBILITY Preliminary Comment S = Susceptible; I = Intermediate; R = Resistant P = Positive; N = Negative MICS are expressed in micrograms per mL Antibiotic RSLT#1 RSLT#2 RSLT#3 RSLT#4 Amikacin S Cefepime S Ceftazidime S Ciprofloxacin S Gentamicin S Imipenem S Levofloxacin S Meropenem S Piperacillin S Ticarcillin S Tobramycin S Performed at: [address] [id number] [employer] Soft Work: Jeane Whittington MD, Phone: [phone] Objective Assessment G neg chaya bacteremia, PSA, POA, ? from cath ESRD on HD Pulmonary edema Fever HTN CHF Plan Plan of Care cont zosyn supportive care follow culture ct neg will d/w dr Cavazos about catheter MALOU IBARRA MD February 13, 2017 10:22
--- NOTE | 2017-02-13 11:26 | PDOC ---
Renal-Progress Notes Subjective Notes Notes A BIT TIRED TODAY, FEELING WELL OTHERWISE History of Present Illness Hx of present illness NO CHANGE Vitals Vitals Vital Signs Date Time Temp Pulse Resp B/P (MAP) Pulse Ox O2 Delivery O2 Flow Rate FiO2 02/13/17 08:00 Room Air 02/13/17 07:49 69 193/88 02/13/17 07:27 97.9 18 97.9 02/13/17 07:27 98 02/13/17 03:11 2.0 Weight Weight [ ] I.O. Intake and Output Intake and Output 02/13/17 07:00 Intake Total 1340 ml Balance 1340 ml Intake Oral 1340 ml # Voids 2 # Bowel Movements 1 Micro Micro Microbiology 02/11/17 Blood Culture - Preliminary, Resulted NO GROWTH AFTER 1 DAY Review of Systems Constitutional: yes: chills, alert, oriented Cardiovascular: Yes no symptom reported Gastrointestional: Yes: constipation Genitourinary: Yes: no symptom reported Musculoskeletal: Yes: muscle stiffness Skin: Yes no symptom reported Psychiatric/Neurological: Yes: no symptom reported Physical Exam General Appearance: no apparent distress Skin: warm Respiratory: decreased breath sounds Heart: S1S2, RRR Abdomen: soft Neurology: alert, oriented, follow commands Musculoskeletal: Osteoarthritis Assessment Assessment IMP PSEUDOMONAS BACTEREMIA PNEUMONIA ANEMIA ESRD PLAN HD TODAY UF TO [facility] D/W ID ANTIBIOTICS MARIFER METZ MD February 13, 2017 11:26
[2017-02-13] MEDS: CINACALCET HCL 30 MG TABLET PO SCH (13:10)
[2017-02-13] MEDS: CARVEDILOL 12.5 MG TABLET. PO SCH ×2 (13:11→17:39)
[2017-02-13] MEDS: cloNIDine HCL 0.1 MG TABLET PO PRN (13:15)
[2017-02-13 15:04] VITALS: BP 164/77
[2017-02-13 19:40] VITALS: BP 138/53
[2017-02-13] MEDS: LATANOPROST 0.005% OPHTH SOLUTION 2.5ML BOTTLE. OU SCH (21:01)
[2017-02-13 23:32] VITALS: BP 108/69
[2017-02-14 04:49] VITALS: BP 156/67
[2017-02-14] MEDS: PIPERACILLIN/TAZOBACTAM 2.25 GM in IV NORMAL SALINE 50ML 50 ML IV SCH (06:17)
[2017-02-14] MEDS: ONDANSETRON ODT 4 MG TAB.RAPDIS. PO SCH ×3 (06:17→17:24)
[2017-02-14 07:58] VITALS: BP 152/73
[2017-02-14] MEDS: SEVELAMER CARBONATE 800 MG TABLET. PO SCH ×3 (08:16→17:24)
[2017-02-14] MEDS: FOLIC/VIT B COMP W-C (RENAL) TABLET. PO SCH (08:17)
[2017-02-14] MEDS: LISINOPRIL 40 MG TABLET. PO SCH ×2 (08:18→20:44)
[2017-02-14] MEDS: amLODIPine BESYLATE 10 MG TABLET PO SCH (08:18)
[2017-02-14] MEDS: SUCRALFATE 1 GM TABLET. PO SCH ×3 (08:18→17:24)
[2017-02-14] MEDS: PANTOPRAZOLE 40 MG TABLET.DR. PO SCH (08:18)
[2017-02-14] MEDS: CARVEDILOL 12.5 MG TABLET. PO SCH ×2 (08:18→17:24)
[2017-02-14] MEDS: FLUTICASONE 50MCG/NASAL SPRAY 16GM BOTTLE. NS SCH (08:19)
[2017-02-14] MEDS: IPRATRPIUM/ALBUTEROL 0.5/2.5MG 3 ML NEBU. NEB SCH ×4 (08:21→19:29)
[2017-02-14] MEDS: HEPARIN PF for SUB-Q USE 5,000 UNIT/0.5 ML VIAL. SQ SCH ×2 (08:26→20:48)
--- NOTE | 2017-02-14 10:09 | PDOC ---
Infectious Disease Note Subjective Subjective Feeling better than yesterday Not very hungry, food not very appetizing No fever Usually constipated ROS ROS GEN: Denies chills, sweats HEENT: Denies sore throat CV: Denies chest pain RESP: Denies shortness of air, cough GI: Denies n/v NEURO: Denies confusion, dizziness Vital Sign Vital Signs Vital Signs Date Time Temp Pulse Resp B/P (MAP) Pulse Ox O2 Delivery O2 Flow Rate FiO2 02/14/17 08:24 97 Room Air 02/14/17 08:19 54 152/73 02/14/17 07:58 98.3 18 98.3 Physical Exam PHYSICAL EXAM GENERAL: Lying down, relaxed appearance, NAD. HEENT: OP/OC clear NECK: Supple, no JVD, no LN LUNGS: Clear HEART: S1S2, no gallop, no murmur ABD: Soft, NT EXT: No edema, no cyanosis DOCUMENT CONTROL ASSOCIATE: Alert, oriented x 3, no focal neurologic deficit SKIN: No rash HDC. clean LEJ. ok Labs Micro 02/11. Repeat BLOOD CULTURE Preliminary NO GROWTH AFTER 2 DAYS 02/09. BLOOD CULT RESULT 1 Final Pseudomonas aeruginosa Antibiotic RSLT#1 Amikacin S Cefepime S Ceftazidime S Ciprofloxacin S Gentamicin S Imipenem S Levofloxacin S Meropenem S Piperacillin S Ticarcillin S Tobramycin S Objective Assessment PSAE sepsis/bacteremia, POA, ? from cath. Repeat NGTD, 02/11 ESRD on HD Pulmonary edema Fever, better HTN CHF Plan Plan of Care D/c Zosyn Dose Gent/po Cipro Home tomorrow if tolerates ok. [place] poor yesterday f/u cultures Supportive care Attending Co-Sign Attending Co-Sign The patient was seen and interviewed as well as examined at the bedside. The chart was reviewed. The case was discussed. Agree with the plan of care. MEAGAN LAVAREZ APRN February 14, 2017 10:09 DONITA BARRAGAN MD February 14, 2017 14:11
[2017-02-14 10:11] VITALS: BP 141/66
[2017-02-14] MEDS: CINACALCET HCL 30 MG TABLET PO SCH (11:20)
--- NOTE | 2017-02-14 12:09 | PDOC ---
PROGRESS NOTES Subjective Subjective feels better today Objective Objective Vital Signs Date Time Temp Pulse Resp B/P (MAP) Pulse Ox O2 Delivery O2 Flow Rate FiO2 02/14/17 11:47 Room Air 02/14/17 10:11 98.6 65 19 141/66 (91) 95 98.6 Intake and Output 02/14/17 07:00 Intake Total 750 ml Balance 750 ml Intake Oral 750 ml Physical Exam Abdomen: Normal bowel sounds, No tenderness Heart: Regular rate, Normal S1 General: Alert, Oriented X3, Cooperative, No acute distress HEENT: Atraumatic, PERRLA, EOMI Lungs: Other (BASILAR RALES) MUSCULOSKELETAL: No deformity Neuro: Normal speech, Cranial nerves 3-12 NL Psych/Mental Status: Mental status NL, Mood NL Skin: No rashes Diagnosis Problem List Problems Medical Problems: (1) Acute CHF Status: Acute (2) Pneumonia Status: Acute Assessment Assessment Problems Medical Problems: (1) Acute CHF Status: Acute (2) Pneumonia Status: Acute FINAL IMPRESSION:Positive blood c/s, gram neg rods1 out of 4 bottles.Pseudomonas. 1. Fever with shortness of breath, possibility of underlying pneumonia.suspect gram neg. 2. Congestive heart failure/pulmonary edema. 3. Moderate mitral regurgitation on echocardiogram last year. 4. End-stage renal disease, on hemodialysis. 5. Hypertension. 6. History of bilateral knee replacements. PLAN:Pseudomonas sepsis , pneumonia and bacteremia improving with Zosyn Dialysis yesterday. pt/ot. gram neg bacteremia , repeat blood c/s neg on iv zosyn. ID consult.spoke with Ct scan abd and pelvis-neg. cxr improving Echo good lvf 60% Problems: Plan Plan of Care Problems Medical Problems: (1) Acute CHF Status: Acute (2) Pneumonia Status: Acute Comment Review of Relevant I have reviewed the following items dorina (where applicable) has been applied. Labs Microbiology 02/11/17 Blood Culture - Preliminary, Resulted NO GROWTH AFTER 2 DAYS Vitals/I & O Vital Sign - Last 24 Hours 02/13/17 02/13/17 02/13/17 02/13/17 13:11 13:15 15:03 15:04 Temp 99.4 99.4 Pulse 82 80 79 Resp 21 B/P (MAP) 186/93 186/93 164/77 (106) Pulse Ox 98 97 O2 Delivery Room Air Room Air 02/13/17 02/13/17 02/13/17 02/13/17 17:39 19:40 20:00 20:08 Temp 98.6 98.6 Pulse 79 57 Resp 16 B/P (MAP) 164/77 138/53 (81) Pulse Ox 96 97 O2 Delivery Room Air Room Air Room Air 02/13/17 02/13/17 02/13/17 02/14/17 20:57 20:57 23:32 03:00 Temp 99.1 99.1 Pulse 57 57 65 59 Resp 16 B/P (MAP) 138/53 138/53 108/69 (82) Pulse Ox 96 O2 Delivery Room Air 02/14/17 02/14/17 02/14/17 02/14/17 04:49 07:58 08:00 08:18 Temp 98.2 98.3 98.2 98.3 Pulse 55 54 54 Resp 17 18 B/P (MAP) 156/67 (96) 152/73 (99) 152/73 Pulse Ox 96 96 O2 Delivery Room Air Room Air Room Air 02/14/17 02/14/17 02/14/17 02/14/17 08:18 08:18 08:19 08:24 Pulse 54 54 54 B/P (MAP) 152/73 152/73 152/73 Pulse Ox 97 O2 Delivery Room Air 02/14/17 02/14/17 10:11 11:47 Temp 98.6 98.6 Pulse 65 Resp 19 B/P (MAP) 141/66 (91) Pulse Ox 95 O2 Delivery Room Air Room Air Intake and Output 02/13/17 02/13/17 02/14/17 15:00 23:00 07:00 Intake Total 450 ml 300 ml Balance 450 ml 300 ml Nutrition Consultation Dietary Evaluation: Recommendations by RD: Increase Calorie Intake Comments: Continue nutrition care plan pt refuses protein supplement provided alternate menu discussed the renal diet Expected Outcomes/Goals: meet 75% estimated nutrition needs- met Malnutrition Findings: Weight Status: Overweight YARY FAIRCHILD MD February 14, 2017 12:08
--- NOTE | 2017-02-14 13:11 | PDOC ---
SUBJECTIVE ROS ESRD doign OK but occ has some weakness CVS: no Orthopnea, no CP RESP: no SOB, no GRACE GI: no Nausea, no Vomiting : no Dysuria, no Urgency OBJECTIVE Vital Signs Vital Signs Date Time Temp Pulse Resp B/P (MAP) Pulse Ox O2 Delivery O2 Flow Rate FiO2 02/14/17 11:47 Room Air 02/14/17 10:11 98.6 65 19 141/66 (91) 95 98.6 I & 0 Intake and Output 02/14/17 07:00 Intake Total 750 ml Balance 750 ml Intake Oral 750 ml PHYSICAL EXAM Physical Exam GEN: Awake, Oriented x 3, In no distress EYES: Vision Unchanged, Conjunctiva Normal EN: No EN Drainage, Mucous Membranes moist NECK: no JVD, min JVP, Supple, no Thyromegaly CVS: S1S2, + Murmur, No Gallop, No Rub,no Edema RESP: no Rales, no Rhonchi,no Acc. Muscle Use GI: BS + ve, NO Bruit, Non Tender, Non Distended : no CVA tenderness, no Suprapubic Tenderness DIAGNOSIS/ASSESSMENT Assessment & Plan ESRD: Current fluid and E-lyte status does not necessitate emergent need for dialysis. Will re-evaluate for dialysis in the am and continue on MWF schedule. ANEMIA; ct Aranesp as ordered for hgb < 11, Transfuse with next HD as needed Ps. Bacteremia - attributed to HD Cath - based on Sensitivities we could use Gent in OP HD (? with Oral Cipro) - if Ok with ID HTN: Current BP meds as reviewed. See orders for changes. BONE & MINERAL: follow Phos and alter binder regimen as needed Discussed Plan of Care with pt at bedside Problems: COMMENT/RELEVANT DATA Meds Current Medications Medications (Trade) Dose Ordered Sig/Any Start Time Stop Time Status Last Admin Dose Admin Acetaminophen (Tylenol) 650 mg PRN Q6HRS PRN 02/11/17 13:15 02/12/17 17:25 650 MG Albumin Human 200 ml @ 200 mls/hr 1X PRN PRN 02/11/17 07:45 02/11/17 13:44 DC Albuterol/ Ipratropium (Duoneb) 3 ml RTQID 02/10/17 08:00 02/14/17 11:46 3 ML Amlodipine Besylate (Norvasc) 10 mg DAILY 02/10/17 09:00 02/14/17 08:18 10 MG Carvedilol (Coreg) 12.5 mg BIDWMEALS 02/10/17 08:00 02/14/17 08:18 12.5 MG Cinacalcet (Sensipar) 30 mg DAILYWLUN 02/10/17 12:00 02/14/17 11:20 30 MG Clonidine HCl (Catapres) 0.1 mg 1X ONCE 02/09/17 22:00 02/09/17 22:03 DC 02/09/17 23:39 0.1 MG Darbepoetin Narciso (Aranesp) 60 mcg Tu 02/10/17 21:00 02/10/17 21:34 60 MCG Diazepam (Valium) 5 mg PRN Q8HRS PRN 02/11/17 10:15 02/11/17 10:23 5 MG Diphenhydramine HCl (Benadryl) 25 mg 1X PRN PRN 02/11/17 07:45 02/12/17 07:44 DC Enoxaparin Sodium (Lovenox 30mg Syringe) 30 mg Q24H 02/09/17 22:00 02/10/17 13:50 DC 02/10/17 00:10 30 MG Fentanyl Citrate (Fentanyl 2ml Vial) 25 mcg PRN Q15MIN PRN 02/09/17 18:00 02/10/17 17:59 DC 02/09/17 18:19 25 MCG Fluticasone Propionate (Flonase) 2 spray DAILY 02/10/17 09:00 02/14/17 08:19 2 SPRAY Heparin Sodium (Porcine) (Heparin Sq) 5,000 unit Q12HR 02/10/17 21:00 02/14/17 08:26 5,000 UNIT Hydralazine HCl (Apresoline) 50 mg BID 02/11/17 11:30 02/14/17 08:19 50 MG Info (Do NOT chart on this entry -- for MONITORING) 1 each PRN DAILY PRN 02/11/17 11:30 02/13/17 11:29 DC Info (PHARMACY MONITORING -- do not chart) 1 each PRN DAILY PRN 02/13/17 09:15 Iohexol (Omnipaque 240 Mg/ml) 30 ml 1X ONCE 02/11/17 11:30 02/11/17 11:31 DC 02/11/17 11:30 30 ML Latanoprost (Xalatan) 1 drop QHS 02/10/17 21:00 02/13/17 21:01 1 DROP Lisinopril (Prinivil) 40 mg BID 02/10/17 11:00 02/14/17 08:18 40 MG Non-Formulary Medication 1 cap DAILY 02/11/17 09:00 UNV Ondansetron HCl (Zofran Odt) 4 mg Q6HRS 02/10/17 00:00 02/14/17 11:20 4 MG Ondansetron HCl (Zofran) 4 mg PRN Q8HRS PRN 02/09/17 19:45 02/10/17 19:44 DC 02/09/17 22:46 4 MG Pantoprazole Sodium (Protonix) 40 mg DAILY 02/10/17 09:00 02/14/17 08:18 40 MG Piperacillin Sod/ Tazobactam Sod 2.25 gm/Sodium Chloride 50 ml @ 100 mls/hr Q8HRS 02/09/17 22:00 02/14/17 06:17 100 MLS/HR Piperacillin Sod/ Tazobactam Sod 3.375 gm/Sodium Chloride 50 ml @ 100 mls/hr 1X ONCE 02/09/17 19:00 02/09/17 19:29 DC 02/09/17 18:56 100 MLS/HR Sevelamer Carbonate (Renvela) 800 mg TIDWMEALS 02/10/17 08:00 02/14/17 11:20 800 MG Sodium Chloride 1,000 ml @ 400 mls/hr Q2H30M PRN 02/13/17 09:09 02/13/17 21:08 DC Sodium Chloride (Normal Saline Flush) 10 ml 1X PRN PRN 02/13/17 09:15 02/14/17 09:14 DC Sucralfate (Carafate) 1 gm TIDAC 02/10/17 07:30 02/14/17 11:20 1 GM Vancomycin HCl (Vanco Per Pharmacy) 1 each PRN DAILY PRN 02/09/17 19:00 Cancel Vancomycin HCl 2 gm/Sodium Chloride 500 ml @ 250 mls/hr 1X ONCE 02/09/17 20:00 02/09/17 21:59 DC 02/09/17 19:40 250 MLS/HR Vitamin B Complex/ Vitamin C (Evelyn-Elsa) 1 tab DAILY 02/10/17 09:00 02/14/17 08:17 1 TAB Zolpidem Tartrate (Ambien) 5 mg PRN QHS PRN 02/10/17 14:15 02/12/17 20:44 5 MG FRANCOIS IBARRA MD February 14, 2017 13:11
[2017-02-14] MEDS: GENTAMICIN PER PHARMACY. MC PRN (14:29)
[2017-02-14 14:39] VITALS: BP 125/61
[2017-02-14] MEDS: ACETAMINOPHEN 325 MG TABLET. PO PRN (14:44)
[2017-02-14] MEDS: CIPROFLOXACIN HCL 250 MG TABLET. PO SCH (14:52)
[2017-02-14] MEDS ORDERED: GENTAMICIN SULFATE IV ONE (15:00)
[2017-02-14] MEDS ORDERED: NORMAL SALINE IV ONE (15:00)
[2017-02-14 19:37] VITALS: BP 121/48
[2017-02-14] MEDS: LATANOPROST 0.005% OPHTH SOLUTION 2.5ML BOTTLE. OU SCH (20:44)
[2017-02-14] MEDS: ZOLPIDEM 5 MG TABLET. PO PRN (20:44)
[2017-02-14 23:22] VITALS: BP 167/76
[2017-02-15 03:55] VITALS: BP 160/82
[2017-02-15] MEDS: ONDANSETRON ODT 4 MG TAB.RAPDIS. PO SCH ×4 (06:00→17:17)
[2017-02-15 07:20] VITALS: BP 173/79
--- NOTE | 2017-02-15 07:38 | PDOC ---
SUBJECTIVE ROS ESRD Doing Ok, occ weak, currently constipated CVS: no Orthopnea, no CP RESP: no SOB, no GRACE GI: min Nausea, no Vomiting : n Dysuria, swapnil Urgency OBJECTIVE Vital Signs Vital Signs Date Time Temp Pulse Resp B/P (MAP) Pulse Ox O2 Delivery O2 Flow Rate FiO2 02/15/17 07:20 97.7 60 18 173/79 (110) 96 Room Air 97.7 I & 0 Intake and Output 02/15/17 07:00 Intake Total 1333.25 ml Balance 1333.25 ml Intake Oral 1130 ml IV Total 203.25 ml # Voids 3 PHYSICAL EXAM Physical Exam GEN: Awake, Oriented x 3, In no distress EYES: Vision Unchanged, Conjunctiva Normal EN: No EN Drainage, Mucous Membranes moist NECK: no JVD, min JVP, Supple, no Thyromegaly CVS: S1S2, + Murmur, No Gallop, No Rub,no Edema RESP: no Rales, no Rhonchi,no Acc. Muscle Use GI: BS + ve, NO Bruit, Non Tender, Non Distended : no CVA tenderness, no Suprapubic Tenderness DIAGNOSIS/ASSESSMENT Assessment & Plan ESRD: Current fluid and E-lyte status does not necessitate emergent need for dialysis. Will re-evaluate for dialysis in the am and continue on MWF schedule. ANEMIA; ct Aranesp as ordered for hgb < 11, Transfuse with next HD as needed Ps. Bacteremia - attributed to HD Cath - now on Gent in OP HD and Oral Cipro HTN: Current BP meds as reviewed. See orders for changes. somewhat labile BONE & MINERAL: follow Phos and alter binder regimen as needed Constipation - Miralax x1 and prn as ordered Discussed Plan of Care with pt at bedside COMMENT/RELEVANT DATA Meds Current Medications Medications (Trade) Dose Ordered Sig/Any Start Time Stop Time Status Last Admin Dose Admin Acetaminophen (Tylenol) 650 mg PRN Q6HRS PRN 02/11/17 13:15 02/14/17 14:44 650 MG Albumin Human 200 ml @ 200 mls/hr 1X PRN PRN 02/11/17 07:45 02/11/17 13:44 DC Albuterol/ Ipratropium (Duoneb) 3 ml RTQID 02/10/17 08:00 02/14/17 19:29 3 ML Amlodipine Besylate (Norvasc) 10 mg DAILY 02/10/17 09:00 02/14/17 08:18 10 MG Carvedilol (Coreg) 12.5 mg BIDWMEALS 02/10/17 08:00 02/14/17 17:24 12.5 MG Cinacalcet (Sensipar) 30 mg DAILYWLUN 02/10/17 12:00 02/14/17 11:20 30 MG Ciprofloxacin (Cipro) 500 mg DAILY 02/14/17 15:00 02/14/17 14:52 500 MG Clonidine HCl (Catapres) 0.1 mg 1X ONCE 02/09/17 22:00 02/09/17 22:03 DC 02/09/17 23:39 0.1 MG Darbepoetin Narciso (Aranesp) 60 mcg Tu 02/10/17 21:00 02/10/17 21:34 60 MCG Diazepam (Valium) 5 mg PRN Q8HRS PRN 02/11/17 10:15 02/11/17 10:23 5 MG Diphenhydramine HCl (Benadryl) 25 mg 1X PRN PRN 02/11/17 07:45 02/12/17 07:44 DC Enoxaparin Sodium (Lovenox 30mg Syringe) 30 mg Q24H 02/09/17 22:00 02/10/17 13:50 DC 02/10/17 00:10 30 MG Fentanyl Citrate (Fentanyl 2ml Vial) 25 mcg PRN Q15MIN PRN 02/09/17 18:00 02/10/17 17:59 DC 02/09/17 18:19 25 MCG Fluticasone Propionate (Flonase) 2 spray DAILY 02/10/17 09:00 02/14/17 08:19 2 SPRAY Gentamicin Sulfate 130 mg/ Sodium Chloride 103.25 ml @ 206.5 mls/hr 1X ONCE 02/14/17 15:00 02/14/17 15:29 DC 02/14/17 14:52 206.5 MLS/HR Gentamicin Sulfate 1 each 1X ONCE 02/16/17 05:00 02/16/17 05:01 Heparin Sodium (Porcine) (Heparin Sq) 5,000 unit Q12HR 02/10/17 21:00 02/14/17 20:48 5,000 UNIT Hydralazine HCl (Apresoline) 50 mg BID 02/11/17 11:30 02/14/17 20:44 50 MG Info (Do NOT chart on this entry -- for MONITORING) 1 each PRN DAILY PRN 02/11/17 11:30 02/13/17 11:29 DC Info (PHARMACY MONITORING -- do not chart) 1 each PRN DAILY PRN 02/13/17 09:15 Iohexol (Omnipaque 240 Mg/ml) 30 ml 1X ONCE 02/11/17 11:30 02/11/17 11:31 DC 02/11/17 11:30 30 ML Latanoprost (Xalatan) 1 drop QHS 02/10/17 21:00 02/14/17 20:44 1 DROP Lisinopril (Prinivil) 40 mg BID 02/10/17 11:00 02/14/17 20:44 40 MG Non-Formulary Medication 1 cap DAILY 02/11/17 09:00 UNV Ondansetron HCl (Zofran Odt) 4 mg Q6HRS 02/10/17 00:00 02/14/17 17:24 4 MG Ondansetron HCl (Zofran) 4 mg PRN Q8HRS PRN 02/09/17 19:45 02/10/17 19:44 DC 02/09/17 22:46 4 MG Pantoprazole Sodium (Protonix) 40 mg DAILY 02/10/17 09:00 02/14/17 08:18 40 MG Piperacillin Sod/ Tazobactam Sod 2.25 gm/Sodium Chloride 50 ml @ 100 mls/hr Q8HRS 02/09/17 22:00 02/14/17 14:10 DC 02/14/17 06:17 100 MLS/HR Piperacillin Sod/ Tazobactam Sod 3.375 gm/Sodium Chloride 50 ml @ 100 mls/hr 1X ONCE 02/09/17 19:00 02/09/17 19:29 DC 02/09/17 18:56 100 MLS/HR Sevelamer Carbonate (Renvela) 800 mg TIDWMEALS 02/10/17 08:00 02/14/17 17:24 800 MG Sodium Chloride 1,000 ml @ 400 mls/hr Q2H30M PRN 02/13/17 09:09 02/13/17 21:08 DC Sodium Chloride (Normal Saline Flush) 10 ml 1X PRN PRN 02/13/17 09:15 02/14/17 09:14 DC Sucralfate (Carafate) 1 gm TIDAC 02/10/17 07:30 02/14/17 17:24 1 GM Vancomycin HCl (Vanco Per Pharmacy) 1 each PRN DAILY PRN 02/09/17 19:00 Cancel Vancomycin HCl 2 gm/Sodium Chloride 500 ml @ 250 mls/hr 1X ONCE 02/09/17 20:00 02/09/17 21:59 DC 02/09/17 19:40 250 MLS/HR Vitamin B Complex/ Vitamin C (Evelyn-Elsa) 1 tab DAILY 02/10/17 09:00 02/14/17 08:17 1 TAB Zolpidem Tartrate (Ambien) 5 mg PRN QHS PRN 02/10/17 14:15 02/14/17 20:44 5 MG FRANCOIS IBARRA MD February 15, 2017 07:38
[2017-02-15] MEDS ORDERED: MAGNESIUM SULFATE 2GM 50 ML IV PRN (07:45)
[2017-02-15] MEDS: IPRATRPIUM/ALBUTEROL 0.5/2.5MG 3 ML NEBU. NEB SCH ×4 (08:04→20:00)
[2017-02-15] MEDS ORDERED: POLYETHYLENE GLYCOL 3350 17 GM PACKET. PO PRN (08:15)
[2017-02-15] MEDS ORDERED: POLYETHYLENE GLYCOL 3350 17 GM PACKET. PO ONE (08:15)
[2017-02-15] MEDS: amLODIPine BESYLATE 10 MG TABLET PO SCH (08:31)
[2017-02-15] MEDS: PANTOPRAZOLE 40 MG TABLET.DR. PO SCH (08:31)
[2017-02-15] MEDS: SUCRALFATE 1 GM TABLET. PO SCH ×3 (08:31→17:17)
[2017-02-15] MEDS: FOLIC/VIT B COMP W-C (RENAL) TABLET. PO SCH (08:31)
[2017-02-15] MEDS: FLUTICASONE 50MCG/NASAL SPRAY 16GM BOTTLE. NS SCH (08:32)
[2017-02-15] MEDS: LISINOPRIL 40 MG TABLET. PO SCH ×2 (08:32→21:37)
[2017-02-15] MEDS: CARVEDILOL 12.5 MG TABLET. PO SCH ×2 (08:32→17:17)
[2017-02-15] MEDS: SEVELAMER CARBONATE 800 MG TABLET. PO SCH ×3 (08:32→17:16)
[2017-02-15] MEDS: HEPARIN PF for SUB-Q USE 5,000 UNIT/0.5 ML VIAL. SQ SCH ×2 (08:38→21:49)
--- NOTE | 2017-02-15 09:02 | PDOC ---
Infectious Disease Note Subjective Subjective Feeling pretty good so far this morning Little nauseous, no more than usual. ROS ROS GEN: Denies fevers, chills, sweats HEENT: Denies sore throat CV: Denies chest pain RESP: Denies shortness of air, cough GI: Denies n/v/d NEURO: Denies confusion, dizziness MSK: Denies weakness, joint pain/swelling Vital Sign Vital Signs Vital Signs Date Time Temp Pulse Resp B/P (MAP) Pulse Ox O2 Delivery O2 Flow Rate FiO2 02/15/17 08:32 60 173/79 02/15/17 08:05 97 Room Air 02/15/17 07:20 97.7 18 97.7 Physical Exam PHYSICAL EXAM GENERAL: Propped up in bed, eating, smiling, relaxed appearance, NAD. LUNGS: Clear HEART: S1S2, no gallop, no murmur ABD: Soft, NT EXT: No edema, no cyanosis LEGUILLON DEBEADER: Alert, oriented x 3, no focal neurologic deficit SKIN: No rash HDC. clean LEJ. ok Labs Micro 02/11. Repeat BLOOD CULTURE Preliminary NO GROWTH AFTER 3 DAYS 02/09. BLOOD CULT RESULT 1 Final Pseudomonas aeruginosa Antibiotic RSLT#1 Amikacin S Cefepime S Ceftazidime S Ciprofloxacin S Gentamicin S Imipenem S Levofloxacin S Meropenem S Piperacillin S Ticarcillin S Tobramycin S Objective Assessment PSAE sepsis/bacteremia, POA, ? from cath. Repeat BC NGTD, 02/11 ESRD on HD Pulmonary edema Fever, better HTN CHF Plan Plan of Care Gent and po Cipro as she is tolerating. No tinnitus/vertigo Supportive care Attending Co-Sign Attending Co-Sign The patient was seen and interviewed as well as examined at the bedside. The chart was reviewed. The case was discussed. Agree with the plan of care. MEAGAN ALVAREZ APRN February 15, 2017 09:02 DONITA BARRAGAN MD February 15, 2017 13:02
[2017-02-15] MEDS: CIPROFLOXACIN HCL 250 MG TABLET. PO SCH (09:45)
[2017-02-15 10:33] VITALS: BP 163/73
--- NOTE | 2017-02-15 10:46 | PDOC ---
PROGRESS NOTES Subjective Subjective feels ok today Objective Objective Vital Signs Date Time Temp Pulse Resp B/P (MAP) Pulse Ox O2 Delivery O2 Flow Rate FiO2 02/15/17 10:33 97.8 74 18 163/73 (103) 97 Room Air 97.8 Intake and Output 02/15/17 07:00 Intake Total 1333.25 ml Balance 1333.25 ml Intake Oral 1130 ml IV Total 203.25 ml # Voids 3 Physical Exam Abdomen: Normal bowel sounds, No tenderness Heart: Regular rate, Normal S1 General: Alert, Oriented X3, Cooperative, No acute distress HEENT: Atraumatic, PERRLA, EOMI Lungs: Other (BASILAR RALES) MUSCULOSKELETAL: No deformity Neuro: Normal speech, Cranial nerves 3-12 NL Psych/Mental Status: Mental status NL, Mood NL Skin: No rashes Diagnosis Problem List Problems Medical Problems: (1) Acute CHF Status: Acute (2) Pneumonia Status: Acute Assessment Assessment Problems Medical Problems: (1) Acute CHF Status: Acute (2) Pneumonia Status: Acute FINAL IMPRESSION:Positive blood c/s, gram neg rods1 out of 4 bottles.Pseudomonas. 1. Fever with shortness of breath, possibility of underlying pneumonia.suspect gram neg. 2. Congestive heart failure/pulmonary edema. 3. Moderate mitral regurgitation on echocardiogram last year. 4. End-stage renal disease, on hemodialysis. 5. Hypertension. 6. History of bilateral knee replacements. PLAN:possible d/c home in 1-2 days. Pseudomonas sepsis , pneumonia and bacteremia improving with Zosyn Dialysis tomorrow. pt/ot. gram neg bacteremia , repeat blood c/s neg Gentamycin+cipro po ID consult.spoke with Ct scan abd and pelvis-neg. cxr improving Echo good lvf 60% Problems: Plan Plan of Care Problems Medical Problems: (1) Acute CHF Status: Acute (2) Pneumonia Status: Acute Comment Review of Relevant I have reviewed the following items dorina (where applicable) has been applied. Labs Microbiology 02/11/17 Blood Culture - Preliminary, Resulted NO GROWTH AFTER 3 DAYS Medications Current Medications Ciprofloxacin (Cipro) 500 mg DAILY PO Last administered on 02/15/17 09:45; Start 02/14/17 at 15:00 Gentamicin Sulfate 130 mg/ Sodium Chloride 103.25 ml @ 206.5 mls/hr 1X ONCE IV Last administered on 02/14/17 14:52; Start 02/14/17 at 15:00; Stop at 15:29; Status DC Gentamicin Sulfate 1 each 1X ONCE MC ; Start 02/16/17 at 05:00; Stop 02/16/17 at 05:01 Gentamicin Sulfate 1 each PRN DAILY PRN MC SEE COMMENTS Last administered on t 14:29; Start 02/14/17 at 14:15 Magnesium Sulfate/ Dextrose 50 ml @ 25 mls/hr PRN DAILY PRN IV for Mag < 1.7 on am labs; Start 02/15/17 at 07:45 Polyethylene Glycol (miraLAX PACKET) 17 gm 1X ONCE PO ; Start 02/15/17 at 08:15 ; Stop 02/15/17 at 08:16; Status DC Polyethylene Glycol (miraLAX PACKET) 17 gm PRN DAILY PRN PO CONSTIPATION; Start 02/15/17 at 08:15 Vitals/I & O Vital Sign - Last 24 Hours 02/14/17 02/14/17 02/14/17 02/14/17 11:47 14:39 15:17 17:24 Temp 97.8 97.8 Pulse 71 71 Resp 20 B/P (MAP) 125/61 (82) 125/61 Pulse Ox 96 O2 Delivery Room Air Room Air Room Air 02/14/17 02/14/17 02/14/17 02/14/17 19:30 19:37 20:00 20:44 Temp 97.8 97.8 Pulse 62 62 Resp 17 B/P (MAP) 121/48 (72) 121/48 Pulse Ox 95 O2 Delivery Room Air Room Air Room Air 02/14/17 02/14/17 02/15/17 02/15/17 20:44 23:22 03:55 07:20 Temp 98.3 98.3 97.7 98.3 98.3 97.7 Pulse 62 55 70 60 Resp 18 20 18 B/P (MAP) 121/48 167/76 (106) 160/82 (108) 173/79 (110) Pulse Ox 94 95 96 O2 Delivery Room Air Room Air Room Air 02/15/17 02/15/17 02/15/17 02/15/17 08:05 08:31 08:31 08:32 Pulse 60 60 60 B/P (MAP) 173/79 173/79 173/79 Pulse Ox 97 O2 Delivery Room Air 02/15/17 02/15/17 08:32 10:33 Temp 97.8 97.8 Pulse 60 74 Resp 18 B/P (MAP) 173/79 163/73 (103) Pulse Ox 97 O2 Delivery Room Air Intake and Output 02/14/17 02/14/17 02/15/17 15:00 23:00 07:00 Intake Total 230 ml 903.25 ml 200 ml Balance 230 ml 903.25 ml 200 ml Nutrition Consultation Dietary Evaluation: Recommendations by RD: Increase Calorie Intake Comments: Continue nutrition care plan pt refuses protein supplement provided alternate menu discussed the renal diet Expected Outcomes/Goals: meet 75% estimated nutrition needs- met Malnutrition Findings: Weight Status: Overweight YARY FAIRCHILD MD February 15, 2017 10:46
[2017-02-15] MEDS: CINACALCET HCL 30 MG TABLET PO SCH (12:42)
[2017-02-15 14:51] VITALS: BP 177/81
[2017-02-15 19:10] VITALS: BP 191/78
[2017-02-15] MEDS: ACETAMINOPHEN 325 MG TABLET. PO PRN (21:36)
[2017-02-15] MEDS: LATANOPROST 0.005% OPHTH SOLUTION 2.5ML BOTTLE. OU SCH (21:36)
[2017-02-15] MEDS: ZOLPIDEM 5 MG TABLET. PO PRN (21:37)
[2017-02-15 23:00] VITALS: BP 155/70
[2017-02-16] MEDS: ONDANSETRON ODT 4 MG TAB.RAPDIS. PO SCH ×4 (01:10→18:41)
[2017-02-16 03:05] VITALS: BP 180/80
[2017-02-16 04:46] LABS: ALBUMIN 2.8 g/dL (3.4-5.0); CALCIUM 8.4 mg/dL (8.5-10.1); CREATININE 9.5 mg/dL (0.6-1.0); PHOSPHORUS 3.7 mg/dL (2.6-4.7); POTASSIUM 4.2 mmol/L (3.5-5.1)
[2017-02-16] MEDS ORDERED: GENTAMICIN RANDOM LEVEL. MC ONE (05:00)
[2017-02-16] MEDS: IPRATRPIUM/ALBUTEROL 0.5/2.5MG 3 ML NEBU. NEB SCH ×4 (07:22→19:40)
[2017-02-16 07:28] VITALS: BP 186/84
[2017-02-16] MEDS: SUCRALFATE 1 GM TABLET. PO SCH ×4 (07:30→16:25)
--- NOTE | 2017-02-16 07:55 | PDOC ---
Infectious Disease Note Subjective Subjective Feeling pretty good so far this morning Little nauseous, no more than usual. ROS ROS GEN: Denies fevers, chills, sweats HEENT: Denies blurred vision, sore throat CV: Denies chest pain RESP: Denies shortness of air, cough GI: Denies d NEURO: Denies confusion, dizziness/tinnitius MSK: Denies weakness, joint pain/swelling Vital Sign Vital Signs Vital Signs Date Time Temp Pulse Resp B/P (MAP) Pulse Ox O2 Delivery O2 Flow Rate FiO2 02/16/17 07:28 97.6 59 20 186/84 (118) 97 Room Air 97.6 Physical Exam PHYSICAL EXAM GENERAL: Propped up in bed, smiling, relaxed appearance, NAD. LUNGS: Clear HEART: S1S2, no gallop, no murmur ABD: Soft, NT EXT: No edema, no cyanosis PROFESSIONAL FIGHTER: Alert, oriented x 3, no focal neurologic deficit SKIN: No rash HDC. clean LEJ. ok Labs Lab Laboratory Tests Test 02/16/17 03:30 Hemoglobin 10.2 g/dL (12.0-15.5) Sodium Level 138 mmol/L (136-145) Potassium Level 4.2 mmol/L (3.5-5.1) Chloride Level 98 mmol/L (98-107) Carbon Dioxide Level 27 mmol/L (21-32) Anion Gap 13 (6-14) Blood Urea Nitrogen 41 mg/dL (7-20) Creatinine 9.5 mg/dL (0.6-1.0) Estimated GFR (Cockcroft-Gault) 5.0 Glucose Level 96 mg/dL (70-99) Calcium Level 8.4 mg/dL (8.5-10.1) Phosphorus Level 3.7 mg/dL (2.6-4.7) Magnesium Level 1.8 mg/dL (1.8-2.4) Albumin 2.8 g/dL (3.4-5.0) Random Gentamicin Level 3.0 mcg/mL Objective Assessment PSAE sepsis/bacteremia, POA, ? from cath. Repeat BC NGTD, 02/11 ESRD on HD Pulmonary edema Fever, better HTN CHF Plan Plan of Care Gent and po Cipro as she is tolerating until 02/24. Gent with HD. No tinnitus/ vertigo Supportive care DONITA BARRAGAN MD February 16, 2017 07:55
[2017-02-16] MEDS: SEVELAMER CARBONATE 800 MG TABLET. PO SCH ×3 (08:00→17:10)
[2017-02-16] MEDS: CARVEDILOL 12.5 MG TABLET. PO SCH ×2 (08:00→17:11)
[2017-02-16] MEDS: HEPARIN PF for SUB-Q USE 5,000 UNIT/0.5 ML VIAL. SQ SCH ×2 (09:00→21:04)
[2017-02-16] MEDS: LISINOPRIL 40 MG TABLET. PO SCH ×2 (09:00→21:00)
[2017-02-16] MEDS: FOLIC/VIT B COMP W-C (RENAL) TABLET. PO SCH (09:00)
[2017-02-16] MEDS: FLUTICASONE 50MCG/NASAL SPRAY 16GM BOTTLE. NS SCH (09:00)
--- NOTE | 2017-02-16 10:39 | PDOC ---
Dialysis Progress Note Dialysis Note Dialysis Note Seen on Hemodialysis, tolerating treatment Okay for now ( Vitals on Hemodialysis: 197/56 57 98.0 General Appearance: Awake: Alert Oriented x 3 Neck: No JVD or JVP Chest: CTA [place] Heart: S1 S2 Abdomen - Soft NTND Extremities - No Edema ESRD: Dialysis as below F 180 NR 3.5 Hrs 3 K 2.5 Ca 140 Na 35 HC03 Qb 350 + Qd 500+ Heparin 0 Units Uf 3-4 Kgs or to dry weight as tolerated May give 25-50 gms of 25% Albumin if needed to maintain Hemodynamic stability Treatment plan reviewed and discussed with clinical exercise specialist Vitals Vital Signs Vital Signs Date Time Temp Pulse Resp B/P (MAP) Pulse Ox O2 Delivery O2 Flow Rate FiO2 02/16/17 07:28 97.6 59 20 186/84 (118) 97 Room Air 97.6 02/13/17 03:11 2.0 Labs Last Labs Laboratory Tests Test 02/16/17 03:30 Hemoglobin 10.2 g/dL (12.0-15.5) Sodium Level 138 mmol/L (136-145) Potassium Level 4.2 mmol/L (3.5-5.1) Chloride Level 98 mmol/L (98-107) Carbon Dioxide Level 27 mmol/L (21-32) Anion Gap 13 (6-14) Blood Urea Nitrogen 41 mg/dL (7-20) Creatinine 9.5 mg/dL (0.6-1.0) Estimated GFR (Cockcroft-Gault) 5.0 Glucose Level 96 mg/dL (70-99) Calcium Level 8.4 mg/dL (8.5-10.1) Phosphorus Level 3.7 mg/dL (2.6-4.7) Magnesium Level 1.8 mg/dL (1.8-2.4) Albumin 2.8 g/dL (3.4-5.0) Random Gentamicin Level 3.0 mcg/mL Laboratory Tests Test 02/16/17 03:30 Hemoglobin 10.2 g/dL (12.0-15.5) Sodium Level 138 mmol/L (136-145) Potassium Level 4.2 mmol/L (3.5-5.1) Chloride Level 98 mmol/L (98-107) Carbon Dioxide Level 27 mmol/L (21-32) Anion Gap 13 (6-14) Blood Urea Nitrogen 41 mg/dL (7-20) Creatinine 9.5 mg/dL (0.6-1.0) Estimated GFR (Cockcroft-Gault) 5.0 Glucose Level 96 mg/dL (70-99) Calcium Level 8.4 mg/dL (8.5-10.1) Phosphorus Level 3.7 mg/dL (2.6-4.7) Magnesium Level 1.8 mg/dL (1.8-2.4) Albumin 2.8 g/dL (3.4-5.0) Random Gentamicin Level 3.0 mcg/mL Assessment Assessment Problems Medical Problems: (1) Acute CHF Status: Acute (2) Pneumonia Status: Acute Problems: Plan Plan of Care Problems Medical Problems: (1) Acute CHF Status: Acute (2) Pneumonia Status: Acute FRNACOIS IBARRA MD February 16, 2017 10:39
[2017-02-16] MEDS: GENTAMICIN PER PHARMACY. MC PRN (11:11)
--- NOTE | 2017-02-16 11:25 | PDOC ---
PROGRESS NOTES Subjective Subjective dialysis today Objective Objective Vital Signs Date Time Temp Pulse Resp B/P (MAP) Pulse Ox O2 Delivery O2 Flow Rate FiO2 02/16/17 07:28 97.6 59 20 186/84 (118) 97 Room Air 97.6 Intake and Output 02/16/17 06:59 Intake Total 1450 ml Output Total 0 ml Balance 1450 ml Intake Oral 1450 ml Output Urine Total 0 ml Physical Exam Abdomen: Normal bowel sounds, No tenderness Heart: Regular rate, Normal S1 General: Alert, Oriented X3, Cooperative, No acute distress HEENT: Atraumatic, PERRLA, EOMI Lungs: Other (BASILAR RALES) MUSCULOSKELETAL: No deformity Neuro: Normal speech, Cranial nerves 3-12 NL Psych/Mental Status: Mental status NL, Mood NL Skin: No rashes Diagnosis Problem List Problems Medical Problems: (1) Acute CHF Status: Acute (2) Pneumonia Status: Acute Assessment Assessment Problems Medical Problems: (1) Acute CHF Status: Acute (2) Pneumonia Status: Acute FINAL IMPRESSION:Positive blood c/s, gram neg rods1 out of 4 bottles.Pseudomonas. 1. Fever with shortness of breath, possibility of underlying pneumonia.suspect gram neg. 2. Congestive heart failure/pulmonary edema. 3. Moderate mitral regurgitation on echocardiogram last year. 4. End-stage renal disease, on hemodialysis. 5. Hypertension. 6. History of bilateral knee replacements. PLAN:possible d/c home tomorrow. Pseudomonas sepsis , pneumonia and bacteremia improving .n Dialysis today pt/ot. gram neg bacteremia , repeat blood c/s neg Gentamycin+cipro po ID consult.spoke with Ct scan abd and pelvis-neg. cxr improving Echo good lvf 60% Problems: Plan Plan of Care Problems Medical Problems: (1) Acute CHF Status: Acute (2) Pneumonia Status: Acute Comment Review of Relevant I have reviewed the following items dorina (where applicable) has been applied. Labs Laboratory Tests Test 02/16/17 03:30 Hemoglobin 10.2 g/dL (12.0-15.5) Sodium Level 138 mmol/L (136-145) Potassium Level 4.2 mmol/L (3.5-5.1) Chloride Level 98 mmol/L (98-107) Carbon Dioxide Level 27 mmol/L (21-32) Anion Gap 13 (6-14) Blood Urea Nitrogen 41 mg/dL (7-20) Creatinine 9.5 mg/dL (0.6-1.0) Estimated GFR (Cockcroft-Gault) 5.0 Glucose Level 96 mg/dL (70-99) Calcium Level 8.4 mg/dL (8.5-10.1) Phosphorus Level 3.7 mg/dL (2.6-4.7) Magnesium Level 1.8 mg/dL (1.8-2.4) Albumin 2.8 g/dL (3.4-5.0) Random Gentamicin Level 3.0 mcg/mL Microbiology 02/11/17 Blood Culture - Preliminary, Resulted NO GROWTH AFTER 4 DAYS Medications Current Medications Gentamicin Sulfate 130 mg/ Sodium Chloride 103.25 ml @ 206.5 mls/hr QMWF IV ; Start 02/16/17 at 16:00 Gentamicin Sulfate 1 each 1X ONCE MC ; Start 02/16/17 at 05:00; Stop 02/16/17 at 05:02; Status DC Vitals/I & O Vital Sign - Last 24 Hours 02/15/17 02/15/17 02/15/17 02/15/17 12:36 14:51 17:07 17:17 Temp 98.3 98.3 Pulse 61 61 Resp 19 B/P (MAP) 177/81 (113) 177/81 Pulse Ox 97 O2 Delivery Room Air Room Air Room Air 02/15/17 02/15/17 02/15/17 02/15/17 19:10 20:00 20:01 21:37 Temp 97.9 97.9 Pulse 61 64 Resp 20 B/P (MAP) 191/78 (115) 191/78 Pulse Ox 95 97 O2 Delivery Room Air Room Air Room Air 02/15/17 02/15/17 02/16/17 02/16/17 21:37 23:00 03:05 07:24 Temp 98.2 97.8 98.2 97.8 Pulse 64 65 68 Resp 18 20 B/P (MAP) 191/78 155/70 (98) 180/80 (113) Pulse Ox 96 95 99 O2 Delivery Room Air Room Air Room Air 02/16/17 07:28 Temp 97.6 97.6 Pulse 59 Resp 20 B/P (MAP) 186/84 (118) Pulse Ox 97 O2 Delivery Room Air Intake and Output 02/15/17 02/15/17 02/16/17 14:59 22:59 06:59 Intake Total 850 ml 600 ml Output Total 0 ml Balance 850 ml 600 ml Nutrition Consultation Dietary Evaluation: Recommendations by RD: Increase Calorie Intake Comments: Continue nutrition care plan pt refuses protein supplement provided alternate menu discussed the renal diet Expected Outcomes/Goals: meet 75% estimated nutrition needs- met Malnutrition Findings: Weight Status: Overweight YARY FAIRCHILD MD February 16, 2017 11:25
[2017-02-16 14:42] VITALS: BP 216/93
[2017-02-16] MEDS: PANTOPRAZOLE 40 MG TABLET.DR. PO SCH (14:46)
[2017-02-16] MEDS: amLODIPine BESYLATE 10 MG TABLET PO SCH (14:46)
[2017-02-16] MEDS: CIPROFLOXACIN HCL 250 MG TABLET. PO SCH (14:47)
[2017-02-16] MEDS: CINACALCET HCL 30 MG TABLET PO SCH (14:47)
[2017-02-16] MEDS: diazePAM 5 MG TABLET PO PRN (15:02)
[2017-02-16] MEDS: cloNIDine HCL 0.1 MG TABLET PO PRN (15:02)
[2017-02-16] MEDS ORDERED: hydrALAZINE 20 MG/ML VIAL. IVP PRN (15:15)
[2017-02-16] MEDS ORDERED: IV NORMAL SALINE 1000ML BAG 1,000 ML IV PRN (15:19)
[2017-02-16] MEDS ORDERED: DIALYSIS PATIENT. MC PRN (15:30)
[2017-02-16] MEDS ORDERED: 0.9 % SODIUM CHLORIDE 10 ML DISP.SYRIN. IV PRN ×2 (15:30)
[2017-02-16 15:45] VITALS: BP 150/69
[2017-02-16] MEDS ORDERED: GENTAMICIN SULFATE IV SCH (16:00)
[2017-02-16] MEDS ORDERED: NORMAL SALINE IV SCH (16:00)
[2017-02-16 19:15] VITALS: BP 135/63
[2017-02-16] MEDS: LATANOPROST 0.005% OPHTH SOLUTION 2.5ML BOTTLE. OU SCH (20:59)
[2017-02-16 23:10] VITALS: BP 170/76
[2017-02-17 02:55] VITALS: BP 169/76
[2017-02-17 06:00] LABS: ALBUMIN 2.8 g/dL (3.4-5.0); CALCIUM 8.7 mg/dL (8.5-10.1); CREATININE 5.8 mg/dL (0.6-1.0); GFR 8.7; MAGNESIUM 1.7 mg/dL (1.8-2.4); PHOSPHORUS 3.8 mg/dL (2.6-4.7); POTASSIUM 4.4 mmol/L (3.5-5.1)
[2017-02-17] MEDS: ONDANSETRON ODT 4 MG TAB.RAPDIS. PO SCH ×2 (06:00)
[2017-02-17 07:00] VITALS: BP 139/68
[2017-02-17] MEDS: IPRATRPIUM/ALBUTEROL 0.5/2.5MG 3 ML NEBU. NEB SCH ×4 (07:29→20:20)
[2017-02-17] MEDS: SEVELAMER CARBONATE 800 MG TABLET. PO SCH ×3 (08:41→17:07)
[2017-02-17] MEDS: PANTOPRAZOLE 40 MG TABLET.DR. PO SCH (08:41)
[2017-02-17] MEDS: SUCRALFATE 1 GM TABLET. PO SCH ×3 (08:41→17:04)
[2017-02-17] MEDS: amLODIPine BESYLATE 10 MG TABLET PO SCH (08:41)
[2017-02-17] MEDS: CARVEDILOL 12.5 MG TABLET. PO SCH ×2 (08:41→17:10)
[2017-02-17] MEDS: FOLIC/VIT B COMP W-C (RENAL) TABLET. PO SCH (08:41)
[2017-02-17] MEDS: CIPROFLOXACIN HCL 250 MG TABLET. PO SCH (08:41)
[2017-02-17] MEDS: FLUTICASONE 50MCG/NASAL SPRAY 16GM BOTTLE. NS SCH (08:44)
[2017-02-17] MEDS: LISINOPRIL 40 MG TABLET. PO SCH ×2 (08:46→21:19)
[2017-02-17] MEDS: HEPARIN PF for SUB-Q USE 5,000 UNIT/0.5 ML VIAL. SQ SCH ×2 (08:51→21:25)
--- NOTE | 2017-02-17 08:53 | PDOC ---
Infectious Disease Note Subjective Subjective Doing Little nauseous, no more than usual. States for several months has felt off balance at times ROS ROS GEN: Denies fevers, chills, sweats HEENT: Denies blurred vision, sore throat CV: Denies chest pain RESP: Denies shortness of air, cough GI: Denies n/v/d NEURO: Denies confusion, dizziness MSK: Denies weakness, joint pain/swelling Vital Sign Vital Signs Vital Signs Date Time Temp Pulse Resp B/P (MAP) Pulse Ox O2 Delivery O2 Flow Rate FiO2 02/17/17 08:46 56 139/68 02/17/17 07:31 98 Nasal Cannula 2.0 02/17/17 07:00 97.6 20 97.6 Physical Exam PHYSICAL EXAM GENERAL: Propped up in bed, smiling, relaxed appearance, NAD. LUNGS: Clear HEART: S1S2, no gallop, no murmur ABD: Soft, NT EXT: No edema, no cyanosis WIRE LATHER: Alert, oriented x 3, no focal neurologic deficit SKIN: No rash HDC. clean LEJ. ok Labs Lab Laboratory Tests Test 02/17/17 04:45 Sodium Level 137 mmol/L (136-145) Potassium Level 4.4 mmol/L (3.5-5.1) Chloride Level 99 mmol/L (98-107) Carbon Dioxide Level 29 mmol/L (21-32) Anion Gap 9 (6-14) Blood Urea Nitrogen 19 mg/dL (7-20) Creatinine 5.8 mg/dL (0.6-1.0) Estimated GFR (Cockcroft-Gault) 8.7 Glucose Level 85 mg/dL (70-99) Calcium Level 8.7 mg/dL (8.5-10.1) Phosphorus Level 3.8 mg/dL (2.6-4.7) Magnesium Level 1.7 mg/dL (1.8-2.4) Albumin 2.8 g/dL (3.4-5.0) Objective Assessment PSAE sepsis/bacteremia, POA, ? from cath. Repeat BC NGTD, 02/11 ESRD on HD Pulmonary edema Fever, better HTN CHF Plan Plan of Care Gent and po Cipro as she is tolerating until 02/24. Gent with HD. No tinnitus/ vertigo Now states she has felt off balance for over several months - afraid to roll picker her grandchild. ? may need more eval Supportive care DONITA BARRAGAN MD February 17, 2017 08:53
--- NOTE | 2017-02-17 10:33 | PDOC ---
PROGRESS NOTES Subjective Subjective weak at times Objective Objective Vital Signs Date Time Temp Pulse Resp B/P (MAP) Pulse Ox O2 Delivery O2 Flow Rate FiO2 02/17/17 08:46 56 139/68 02/17/17 08:00 Room Air 02/17/17 07:31 98 2.0 02/17/17 07:00 97.6 20 97.6 Intake and Output 02/17/17 07:00 Intake Total 860 ml Balance 860 ml Intake Oral 760 ml IV Total 100 ml Physical Exam Abdomen: Normal bowel sounds, No tenderness Heart: Regular rate, Normal S1 General: Alert, Oriented X3, Cooperative, No acute distress HEENT: Atraumatic, PERRLA, EOMI Lungs: Other (BASILAR RALES) MUSCULOSKELETAL: No deformity Neuro: Normal speech, Cranial nerves 3-12 NL Psych/Mental Status: Mental status NL, Mood NL Skin: No rashes Diagnosis Problem List Problems Medical Problems: (1) Acute CHF Status: Acute (2) Pneumonia Status: Acute Assessment Assessment Problems Medical Problems: (1) Acute CHF Status: Acute (2) Pneumonia Status: Acute FINAL IMPRESSION:Positive blood c/s, gram neg rods1 out of 4 bottles.Pseudomonas. 1. Fever with shortness of breath, possibility of underlying pneumonia.suspect gram neg. 2. Congestive heart failure/pulmonary edema. 3. Moderate mitral regurgitation on echocardiogram last year. 4. End-stage renal disease, on hemodialysis. 5. Hypertension. 6. History of bilateral knee replacements. PLAN:d/c home today. needs gentamicin with dialysis for 3 more doses+po cipro for 6 more days Pseudomonas sepsis line spsis from catheter, pneumonia and bacteremia improving .n Dialysis yesterday pt/ot. gram neg bacteremia , repeat blood c/s neg Gentamycin+cipro po ID consult.spoke with Ct scan abd and pelvis-neg. cxr improving Echo good lvf 60% Problems: Plan Plan of Care Problems Medical Problems: (1) Acute CHF Status: Acute (2) Pneumonia Status: Acute Comment Review of Relevant I have reviewed the following items dorina (where applicable) has been applied. Labs Laboratory Tests Test 02/17/17 04:45 Sodium Level 137 mmol/L (136-145) Potassium Level 4.4 mmol/L (3.5-5.1) Chloride Level 99 mmol/L (98-107) Carbon Dioxide Level 29 mmol/L (21-32) Anion Gap 9 (6-14) Blood Urea Nitrogen 19 mg/dL (7-20) Creatinine 5.8 mg/dL (0.6-1.0) Estimated GFR (Cockcroft-Gault) 8.7 Glucose Level 85 mg/dL (70-99) Calcium Level 8.7 mg/dL (8.5-10.1) Phosphorus Level 3.8 mg/dL (2.6-4.7) Magnesium Level 1.7 mg/dL (1.8-2.4) Albumin 2.8 g/dL (3.4-5.0) Microbiology 02/11/17 Blood Culture - Final, Complete NO GROWTH AFTER 5 DAYS Medications Current Medications Gentamicin Sulfate 130 mg/ Sodium Chloride 103.25 ml @ 206.5 mls/hr QMWF IV Last administered on 02/16/17t 16:19; Start 02/16/17 at 16:00 Hydralazine HCl (Apresoline) 10 mg PRN Q6HRS PRN IVP ELEVATED BP, SEE COMMENTS ; Start 02/16/17 at 15:15 Info (PHARMACY MONITORING -- do not chart) 1 each PRN DAILY PRN MC SEE COMMENTS ; Start 02/16/17 at 15:30 Sodium Chloride 1,000 ml @ 1,000 mls/hr Q1H PRN IV hypotension; Start 02/16/17 at 15:19; Stop 02/16/17 at 21:18; Status DC Sodium Chloride (Normal Saline Flush) 10 ml 1X PRN PRN IV AP catheter pack; Start 02/16/17 at 15:30; Stop 02/17/17 at 15:29 Sodium Chloride (Normal Saline Flush) 10 ml 1X PRN PRN IV JAVA LEAD catheter pack; Start 02/16/17 at 15:30; Stop 02/17/17 at 15:29 Vitals/I & O Vital Sign - Last 24 Hours 02/16/17 02/16/17 02/16/17 02/16/17 12:04 14:42 14:46 15:02 Temp 98.2 98.2 Pulse 100 96 92 Resp 20 B/P (MAP) 216/93 (134) 216/93 216/93 Pulse Ox 100 O2 Delivery Room Air Nasal Cannula 02/16/17 02/16/17 02/16/17 02/16/17 15:45 17:11 17:16 19:15 Temp 99.6 99.6 Pulse 81 81 84 Resp 18 20 B/P (MAP) 150/69 (96) 150/69 135/63 (87) Pulse Ox 97 95 O2 Delivery Nasal Cannula Nasal Cannula O2 Flow Rate 2.0 2.0 02/16/17 02/16/17 02/16/17 02/16/17 19:40 20:09 20:59 21:00 Pulse 84 84 B/P (MAP) 135/63 135/63 O2 Delivery Nasal Cannula Room Air O2 Flow Rate 2.0 02/16/17 02/17/17 02/17/17 02/17/17 23:10 02:55 07:00 07:31 Temp 98.4 98.5 97.6 98.4 98.5 97.6 Pulse 63 63 56 Resp 18 20 20 B/P (MAP) 170/76 (107) 169/76 (107) 139/68 (91) Pulse Ox 96 97 99 98 O2 Delivery Nasal Cannula Nasal Cannula Nasal Cannula Nasal Cannula O2 Flow Rate 2.0 2.0 2.0 02/17/17 02/17/17 02/17/17 02/17/17 08:00 08:41 08:41 08:42 Pulse 56 56 56 B/P (MAP) 139/68 139/68 139/68 O2 Delivery Room Air 02/17/17 08:46 Pulse 56 B/P (MAP) 139/68 Intake and Output 02/16/17 02/16/17 02/17/17 15:00 23:00 07:00 Intake Total 180 ml 500 ml 180 ml Balance 180 ml 500 ml 180 ml Nutrition Consultation Dietary Evaluation: Recommendations by RD: Increase Calorie Intake Comments: Continue nutrition care plan pt refuses protein supplement provided alternate menu discussed the renal diet Expected Outcomes/Goals: meet 75% estimated nutrition needs- met Malnutrition Findings: Weight Status: Overweight YARY FAIRCHILD MD February 17, 2017 10:33
[2017-02-17] MEDS ORDERED: CIPR250T30 PO (10:36)
[2017-02-17 10:48] VITALS: BP 145/68
[2017-02-17] MEDS ORDERED: ONDANSETRON ODT 4 MG TAB.RAPDIS. PO PRN (11:30)
[2017-02-17] MEDS: CINACALCET HCL 30 MG TABLET PO SCH (11:52)
--- NOTE | 2017-02-17 12:00 | PDOC ---
SUBJECTIVE ROS ESRD doign and feeling better CVS: no Orthopnea, no CP RESP: no SOB, no GRACE GI: no Nausea, no Vomiting : no Dysuria, no Urgency OBJECTIVE Vital Signs Vital Signs Date Time Temp Pulse Resp B/P (MAP) Pulse Ox O2 Delivery O2 Flow Rate FiO2 02/17/17 11:43 Nasal Cannula 2.0 02/17/17 10:48 98.0 62 22 145/68 (93) 92 98.0 I & 0 Intake and Output 02/17/17 07:00 Intake Total 860 ml Balance 860 ml Intake Oral 760 ml IV Total 100 ml PHYSICAL EXAM Physical Exam GEN: Awake, Oriented x 3, In no distress EYES: Vision Unchanged, Conjunctiva Normal EN: No EN Drainage, Mucous Membranes moist NECK: no JVD, min JVP, Supple, no Thyromegaly CVS: S1S2, + Murmur, No Gallop, No Rub,no Edema RESP: no Rales, no Rhonchi,no Acc. Muscle Use GI: BS + ve, NO Bruit, Non Tender, Non Distended : no CVA tenderness, no Suprapubic Tenderness DIAGNOSIS/ASSESSMENT Assessment & Plan ESRD: Current fluid and E-lyte status does not necessitate emergent need for dialysis. Will re-evaluate for dialysis in the am and continue on MWF schedule. ANEMIA; ct Aranesp as ordered for hgb < 11, Transfuse with next HD as needed Ps. Bacteremia - due to HD Cath ? infection - now on Gent in OP HD and Cipro - occ chills - ? needs Cath changed. D/w Dr aguiar and will D/w Dr Martin re Access options HTN: Current BP meds as reviewed. See orders for changes. somewhat labile BONE & MINERAL: follow Phos and alter binder regimen as needed Constipation - Miralax x1 and prn as ordered lowish mag - IV Mag x 1 CHF on CXR in the past - Pt was SOB yest - felt bad toward end of HD (? due to chills vs Uf) - repeat CXR ordered for today (NA yet) - Breathing better today. Can challenge d/wt moises Discussed Plan of Care with pt at bedside COMMENT/RELEVANT DATA Meds Current Medications Medications (Trade) Dose Ordered Sig/Any Start Time Stop Time Status Last Admin Dose Admin Acetaminophen (Tylenol) 650 mg PRN Q6HRS PRN 02/11/17 13:15 02/15/17 21:36 650 MG Albumin Human 200 ml @ 200 mls/hr 1X PRN PRN 02/11/17 07:45 02/11/17 13:44 DC Albuterol/ Ipratropium (Duoneb) 3 ml RTQID 02/10/17 08:00 02/17/17 11:41 3 ML Amlodipine Besylate (Norvasc) 10 mg DAILY 02/10/17 09:00 02/17/17 08:41 10 MG Carvedilol (Coreg) 12.5 mg BIDWMEALS 02/10/17 08:00 02/17/17 08:41 12.5 MG Cinacalcet (Sensipar) 30 mg DAILYWLUN 02/10/17 12:00 02/16/17 14:47 30 MG Ciprofloxacin (Cipro) 500 mg DAILY 02/14/17 15:00 02/17/17 08:41 500 MG Clonidine HCl (Catapres) 0.1 mg 1X ONCE 02/09/17 22:00 02/09/17 22:03 DC 02/09/17 23:39 0.1 MG Darbepoetin Narciso (Aranesp) 60 mcg Tu 02/10/17 21:00 02/10/17 21:34 60 MCG Diazepam (Valium) 5 mg PRN Q8HRS PRN 02/11/17 10:15 02/16/17 15:02 5 MG Diphenhydramine HCl (Benadryl) 25 mg 1X PRN PRN 02/11/17 07:45 02/12/17 07:44 DC Enoxaparin Sodium (Lovenox 30mg Syringe) 30 mg Q24H 02/09/17 22:00 02/10/17 13:50 DC 02/10/17 00:10 30 MG Fentanyl Citrate (Fentanyl 2ml Vial) 25 mcg PRN Q15MIN PRN 02/09/17 18:00 02/10/17 17:59 DC 02/09/17 18:19 25 MCG Fluticasone Propionate (Flonase) 2 spray DAILY 02/10/17 09:00 02/17/17 08:44 2 SPRAY Gentamicin Sulfate 130 mg/ Sodium Chloride 103.25 ml @ 206.5 mls/hr QMWF 02/16/17 16:00 02/16/17 16:19 206.5 MLS/HR Gentamicin Sulfate 1 each 1X ONCE 02/16/17 05:00 02/16/17 05:02 DC Heparin Sodium (Porcine) (Heparin Sq) 5,000 unit Q12HR 02/10/17 21:00 02/17/17 08:51 5,000 UNIT Hydralazine HCl (Apresoline) 10 mg PRN Q6HRS PRN 02/16/17 15:15 Info (Do NOT chart on this entry -- for MONITORING) 1 each PRN DAILY PRN 02/11/17 11:30 02/13/17 11:29 DC Info (PHARMACY MONITORING -- do not chart) 1 each PRN DAILY PRN 02/16/17 15:30 Iohexol (Omnipaque 240 Mg/ml) 30 ml 1X ONCE 02/11/17 11:30 02/11/17 11:31 DC 02/11/17 11:30 30 ML Latanoprost (Xalatan) 1 drop QHS 02/10/17 21:00 02/16/17 20:59 1 DROP Lisinopril (Prinivil) 40 mg BID 02/10/17 11:00 02/17/17 08:46 40 MG Magnesium Sulfate/ Dextrose 50 ml @ 25 mls/hr PRN DAILY PRN 02/15/17 07:45 Non-Formulary Medication 1 cap DAILY 02/11/17 09:00 UNV Ondansetron HCl (Zofran Odt) 4 mg PRN Q6HRS PRN 02/17/17 11:30 Ondansetron HCl (Zofran) 4 mg PRN Q8HRS PRN 02/09/17 19:45 02/10/17 19:44 DC 02/09/17 22:46 4 MG Pantoprazole Sodium (Protonix) 40 mg DAILY 02/10/17 09:00 02/17/17 08:41 40 MG Piperacillin Sod/ Tazobactam Sod 2.25 gm/Sodium Chloride 50 ml @ 100 mls/hr Q8HRS 02/09/17 22:00 02/14/17 14:10 DC 02/14/17 06:17 100 MLS/HR Piperacillin Sod/ Tazobactam Sod 3.375 gm/Sodium Chloride 50 ml @ 100 mls/hr 1X ONCE 02/09/17 19:00 02/09/17 19:29 DC 02/09/17 18:56 100 MLS/HR Polyethylene Glycol (miraLAX PACKET) 17 gm PRN DAILY PRN 02/15/17 08:15 Sevelamer Carbonate (Renvela) 800 mg TIDWMEALS 02/10/17 08:00 02/17/17 08:41 800 MG Sodium Chloride (Normal Saline Flush) 10 ml 1X PRN PRN 02/16/17 15:30 02/17/17 15:29 Sucralfate (Carafate) 1 gm TIDAC 02/10/17 07:30 02/17/17 08:41 1 GM Vancomycin HCl (Vanco Per Pharmacy) 1 each PRN DAILY PRN 02/09/17 19:00 Cancel Vancomycin HCl 2 gm/Sodium Chloride 500 ml @ 250 mls/hr 1X ONCE 02/09/17 20:00 02/09/17 21:59 DC 02/09/17 19:40 250 MLS/HR Vitamin B Complex/ Vitamin C (Evelyn-Elsa) 1 tab DAILY 02/10/17 09:00 02/17/17 08:41 1 TAB Zolpidem Tartrate (Ambien) 5 mg PRN QHS PRN 02/10/17 14:15 02/15/17 21:37 5 MG Lab Laboratory Tests Test 02/17/17 04:45 Sodium Level 137 mmol/L (136-145) Potassium Level 4.4 mmol/L (3.5-5.1) Chloride Level 99 mmol/L (98-107) Carbon Dioxide Level 29 mmol/L (21-32) Anion Gap 9 (6-14) Blood Urea Nitrogen 19 mg/dL (7-20) Creatinine 5.8 mg/dL (0.6-1.0) Estimated GFR (Cockcroft-Gault) 8.7 Glucose Level 85 mg/dL (70-99) Calcium Level 8.7 mg/dL (8.5-10.1) Phosphorus Level 3.8 mg/dL (2.6-4.7) Magnesium Level 1.7 mg/dL (1.8-2.4) Albumin 2.8 g/dL (3.4-5.0) FRANCOIS IBARRA MD February 17, 2017 12:00
--- NOTE | 2017-02-17 14:23 | RAD ---
Indication shortness of breath. History of hypertension and diabetes. PA and lateral views of the chest were obtained and are compared to a study 5 days earlier. Changes of congestive heart failure, seen previously, continue to improve. A new finding in the chest is not seen. There is no consolidated pneumonia. Right-sided dialysis catheter is again noted. IMPRESSION: Continued improvement in the appearance of the chest. No new finding seen
[2017-02-17 14:59] VITALS: BP 136/65
[2017-02-17] MEDS: ACETAMINOPHEN 325 MG TABLET. PO PRN (17:04)
[2017-02-17 19:10] VITALS: BP 121/59
[2017-02-17] MEDS: ZOLPIDEM 5 MG TABLET. PO PRN (21:18)
[2017-02-17] MEDS: LATANOPROST 0.005% OPHTH SOLUTION 2.5ML BOTTLE. OU SCH (21:18)
[2017-02-17] MEDS: DARBEPOETIN ALFA 60 MCG/0.3 ML DISP.SYRIN. SQ SCH (21:19)
[2017-02-17 23:10] VITALS: BP 141/69
[2017-02-18 02:50] VITALS: BP 173/81
[2017-02-18 04:37] LABS: ALBUMIN 2.8 g/dL (3.4-5.0); CALCIUM 8.3 mg/dL (8.5-10.1); MAGNESIUM 1.6 mg/dL (1.8-2.4); PHOSPHORUS 3.3 mg/dL (2.6-4.7); POTASSIUM 4.2 mmol/L (3.5-5.1)
[2017-02-18 07:00] VITALS: BP 182/82
[2017-02-18] MEDS: SUCRALFATE 1 GM TABLET. PO SCH ×3 (07:30→18:17)
[2017-02-18] MEDS ORDERED: IV NORMAL SALINE 1000ML BAG 1,000 ML IV PRN (07:39)
[2017-02-18] MEDS ORDERED: DIALYSIS PATIENT. MC PRN ×2 (07:45)
[2017-02-18] MEDS: SEVELAMER CARBONATE 800 MG TABLET. PO SCH ×3 (08:00→18:17)
--- NOTE | 2017-02-18 08:01 | PDOC ---
Infectious Disease Note Subjective Subjective Doing much better today Little nauseous, no more than usual. Ate well this am States for several months has felt off balance at times ROS ROS GEN: Denies fevers, chills, sweats HEENT: Denies blurred vision, sore throat CV: Denies chest pain RESP: Denies shortness of air, cough GI: Denies n/v/d NEURO: Denies confusion, dizziness MSK: Denies weakness, joint pain/swelling Vital Sign Vital Signs Vital Signs Date Time Temp Pulse Resp B/P (MAP) Pulse Ox O2 Delivery O2 Flow Rate FiO2 02/18/17 02:50 98.1 72 18 173/81 (111) 98 Nasal Cannula 2.0 98.1 Physical Exam PHYSICAL EXAM GENERAL: Propped up in bed, smiling, relaxed appearance, NAD. 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 clean LEJ. ok Labs Lab Laboratory Tests Test 02/18/17 03:10 Sodium Level 135 mmol/L (136-145) Potassium Level 4.2 mmol/L (3.5-5.1) Chloride Level 97 mmol/L (98-107) Carbon Dioxide Level 28 mmol/L (21-32) Anion Gap 10 (6-14) Blood Urea Nitrogen 42 mg/dL (7-20) Creatinine 8.0 mg/dL (0.6-1.0) Estimated GFR (Cockcroft-Gault) 6.0 Glucose Level 112 mg/dL (70-99) Calcium Level 8.3 mg/dL (8.5-10.1) Phosphorus Level 3.3 mg/dL (2.6-4.7) Magnesium Level 1.6 mg/dL (1.8-2.4) Albumin 2.8 g/dL (3.4-5.0) Objective Assessment PSAE sepsis/bacteremia, POA, ? from cath. Repeat BC NGTD, 02/11 ESRD on HD Pulmonary edema Fever, better HTN CHF Plan Plan of Care Gent and po Cipro as she is tolerating until 02/24. Gent with HD. No tinnitus/ vertigo. D/w Dr. Mercado 02/17 - had chills with HD - line to be changed Now states she has felt off balance for over several months - afraid to nut picker her grandchild. ? may need more eval -d/w Dr. Bunch 02/17 Supportive care DONITA BARRAGAN MD February 18, 2017 08:01
[2017-02-18] MEDS: IPRATRPIUM/ALBUTEROL 0.5/2.5MG 3 ML NEBU. NEB SCH ×3 (08:22→16:53)
[2017-02-18] MEDS: GENTAMICIN PER PHARMACY. MC PRN (08:41)
[2017-02-18] MEDS: FLUTICASONE 50MCG/NASAL SPRAY 16GM BOTTLE. NS SCH (09:00)
--- NOTE | 2017-02-18 10:04 | PDOC ---
PROGRESS NOTES Subjective Subjective feels better ,ready to go home Objective Objective Vital Signs Date Time Temp Pulse Resp B/P (MAP) Pulse Ox O2 Delivery O2 Flow Rate FiO2 02/18/17 08:24 100 Room Air 02/18/17 07:00 98.1 56 18 182/82 (115) 2.0 98.1 Intake and Output 02/18/17 07:00 Intake Total 1260 ml Output Total 0 ml Balance 1260 ml Intake Oral 1260 ml Output Urine Total 0 ml Physical Exam Abdomen: Normal bowel sounds, No tenderness Heart: Regular rate, Normal S1 General: Alert, Oriented X3, Cooperative, No acute distress HEENT: Atraumatic, PERRLA, EOMI Lungs: Other (BASILAR RALES) MUSCULOSKELETAL: No deformity Neuro: Normal speech, Cranial nerves 3-12 NL Psych/Mental Status: Mental status NL, Mood NL Skin: No rashes Diagnosis Problem List Problems Medical Problems: (1) Acute CHF Status: Acute (2) Pneumonia Status: Acute Assessment Assessment Problems Medical Problems: (1) Acute CHF Status: Acute (2) Pneumonia Status: Acute FINAL IMPRESSION:Positive blood c/s, gram neg rods1 out of 4 bottles.Pseudomonas. 1. Fever with shortness of breath, possibility of underlying pneumonia.suspect gram neg. 2. Congestive heart failure/pulmonary edema. 3. Moderate mitral regurgitation on echocardiogram last year. 4. End-stage renal disease, on hemodialysis. 5. Hypertension. 6. History of bilateral knee replacements. PLAN:d/c home today. spoke with social work needs gentamicin with dialysis for 3 more doses+po cipro for 6 more days Pseudomonas sepsis line spsis from catheter, pneumonia and bacteremia improving .n Dialysis yesterday pt/ot. gram neg bacteremia , repeat blood c/s neg Gentamycin+cipro po ID consult.spoke with Ct scan abd and pelvis-neg. cxr improving Echo good lvf 60% Problems: Plan Plan of Care Problems Medical Problems: (1) Acute CHF Status: Acute (2) Pneumonia Status: Acute Comment Review of Relevant I have reviewed the following items dorina (where applicable) has been applied. Labs Laboratory Tests Test 02/18/17 03:10 Sodium Level 135 mmol/L (136-145) Potassium Level 4.2 mmol/L (3.5-5.1) Chloride Level 97 mmol/L (98-107) Carbon Dioxide Level 28 mmol/L (21-32) Anion Gap 10 (6-14) Blood Urea Nitrogen 42 mg/dL (7-20) Creatinine 8.0 mg/dL (0.6-1.0) Estimated GFR (Cockcroft-Gault) 6.0 Glucose Level 112 mg/dL (70-99) Calcium Level 8.3 mg/dL (8.5-10.1) Phosphorus Level 3.3 mg/dL (2.6-4.7) Magnesium Level 1.6 mg/dL (1.8-2.4) Albumin 2.8 g/dL (3.4-5.0) Microbiology 02/11/17 Blood Culture - Final, Complete NO GROWTH AFTER 5 DAYS Medications Current Medications Info (PHARMACY MONITORING -- do not chart) 1 each PRN DAILY PRN MC SEE COMMENTS ; Start 02/18/17 at 07:45; Stop 02/18/17 at 07:54; Status DC Info (PHARMACY MONITORING -- do not chart) 1 each PRN DAILY PRN MC SEE COMMENTS ; Start 02/18/17 at 07:45; Stop 02/18/17 at 08:37; Status DC Ondansetron HCl (Zofran Odt) 4 mg PRN Q6HRS PRN PO NAUSEA/VOMITING; Start 02/17 at 11:30 Sodium Chloride 1,000 ml @ 1,000 mls/hr Q1H PRN IV hypotension; Start 02/18/17 at 07:39; Stop 02/18/17 at 13:38 Vitals/I & O Vital Sign - Last 24 Hours 02/17/17 02/17/17 02/17/17 02/17/17 10:48 11:43 14:59 15:33 Temp 98.0 97.7 98.0 97.7 Pulse 62 56 Resp 22 18 B/P (MAP) 145/68 (93) 136/65 (88) Pulse Ox 92 96 O2 Delivery Room Air Nasal Cannula Room Air Nasal Cannula O2 Flow Rate 2.0 2.0 02/17/17 02/17/17 02/17/17 02/17/17 17:10 19:10 20:05 20:20 Temp 98.0 98.0 Pulse 62 51 Resp 18 B/P (MAP) 142/66 121/59 (79) Pulse Ox 95 97 O2 Delivery Nasal Cannula Room Air Nasal Cannula O2 Flow Rate 2.0 1.0 02/17/17 02/17/17 02/17/17 02/18/17 21:19 21:19 23:10 02:50 Temp 97.9 98.1 97.9 98.1 Pulse 51 51 60 72 Resp 20 18 B/P (MAP) 121/59 121/59 141/69 (93) 173/81 (111) Pulse Ox 98 98 O2 Delivery Nasal Cannula Nasal Cannula O2 Flow Rate 2.0 2.0 02/18/17 02/18/17 02/18/17 07:00 08:00 08:24 Temp 98.1 98.1 Pulse 56 Resp 18 B/P (MAP) 182/82 (115) Pulse Ox 97 100 O2 Delivery Nasal Cannula Room Air Room Air O2 Flow Rate 2.0 Intake and Output 02/17/17 02/17/17 02/18/17 15:00 23:00 07:00 Intake Total 680 ml 580 ml Output Total 0 ml Balance 680 ml 580 ml Nutrition Consultation Dietary Evaluation: Recommendations by RD: Increase Calorie Intake Comments: Continue nutrition care plan pt refuses protein supplement provided alternate menu discussed the renal diet, encouraged diet compliance pt refuses education handouts Expected Outcomes/Goals: meet 75% estimated nutrition needs- met Malnutrition Findings: Weight Status: Overweight YARY FAIRCHILD MD February 18, 2017 10:04
--- NOTE | 2017-02-18 10:14 | PDOC ---
Dialysis Progress Note Dialysis Note Dialysis Note Seen on Hemodialysis, tolerating treatment Okay for now Vitals on Hemodialysis: 197/56 57 98.0 General Appearance: Awake: Alert Oriented x 3 Neck: No JVD or JVP Chest: CTA [place] Heart: S1 S2 Abdomen - Soft NTND Extremities - No Edema ESRD: Dialysis as below F 180 NR 3.5 Hrs 3 K 2.5 Ca 140 Na 35 HC03 Qb 350 + Qd 500+ Heparin 0 Units Uf 3-4 Kgs or to dry weight as tolerated May give 25-50 gms of 25% Albumin if needed to maintain Hemodynamic stability Treatment plan reviewed and discussed with burglar alarm superintendent Vitals Vital Signs Vital Signs Date Time Temp Pulse Resp B/P (MAP) Pulse Ox O2 Delivery O2 Flow Rate FiO2 02/18/17 08:24 100 Room Air 02/18/17 07:00 98.1 56 18 182/82 (115) 2.0 98.1 Labs Last Labs Laboratory Tests Test 02/17/17 04:45 02/18/17 03:10 Sodium Level 137 mmol/L (136-145) 135 mmol/L (136-145) Potassium Level 4.4 mmol/L (3.5-5.1) 4.2 mmol/L (3.5-5.1) Chloride Level 99 mmol/L (98-107) 97 mmol/L (98-107) Carbon Dioxide Level 29 mmol/L (21-32) 28 mmol/L (21-32) Anion Gap 9 (6-14) 10 (6-14) Blood Urea Nitrogen 19 mg/dL (7-20) 42 mg/dL (7-20) Creatinine 5.8 mg/dL (0.6-1.0) 8.0 mg/dL (0.6-1.0) Estimated GFR (Cockcroft-Gault) 8.7 6.0 Glucose Level 85 mg/dL (70-99) 112 mg/dL (70-99) Calcium Level 8.7 mg/dL (8.5-10.1) 8.3 mg/dL (8.5-10.1) Phosphorus Level 3.8 mg/dL (2.6-4.7) 3.3 mg/dL (2.6-4.7) Magnesium Level 1.7 mg/dL (1.8-2.4) 1.6 mg/dL (1.8-2.4) Albumin 2.8 g/dL (3.4-5.0) 2.8 g/dL (3.4-5.0) Laboratory Tests Test 02/18/17 03:10 Sodium Level 135 mmol/L (136-145) Potassium Level 4.2 mmol/L (3.5-5.1) Chloride Level 97 mmol/L (98-107) Carbon Dioxide Level 28 mmol/L (21-32) Anion Gap 10 (6-14) Blood Urea Nitrogen 42 mg/dL (7-20) Creatinine 8.0 mg/dL (0.6-1.0) Estimated GFR (Cockcroft-Gault) 6.0 Glucose Level 112 mg/dL (70-99) Calcium Level 8.3 mg/dL (8.5-10.1) Phosphorus Level 3.3 mg/dL (2.6-4.7) Magnesium Level 1.6 mg/dL (1.8-2.4) Albumin 2.8 g/dL (3.4-5.0) Assessment Assessment Problems Medical Problems: (1) Acute CHF Status: Acute (2) Pneumonia Status: Acute Problems: Plan Plan of Care Problems Medical Problems: (1) Acute CHF Status: Acute (2) Pneumonia Status: Acute FRANCOIS IBARRA MD February 18, 2017 10:14
--- NOTE | 2017-02-18 10:26 | PDOC ---
Dialysis Progress Note Dialysis Note Dialysis Note Seen on Hemodialysis, tolerating treatment Okay for now Vitals on Hemodialysis: 209/77 55 afeb General Appearance: Awake: Alert Oriented x 3 Neck: No JVD or JVP Chest: CTA [place] Heart: S1 S2 Abdomen - Soft NTND Extremities - No Edema ESRD: Dialysis as below F 180 NR 3.5 Hrs 3 K 2.5 Ca 140 Na 30 HC03 Qb 350 + Qd 500+ Heparin 0 Units Uf 3-4 Kgs or to dry weight as tolerated May give 25-50 gms of 25% Albumin if needed to maintain Hemodynamic stability Treatment plan reviewed and discussed with forming department end finder Vitals Vital Signs Vital Signs Date Time Temp Pulse Resp B/P (MAP) Pulse Ox O2 Delivery O2 Flow Rate FiO2 02/18/17 08:24 100 Room Air 02/18/17 07:00 98.1 56 18 182/82 (115) 2.0 98.1 Labs Last Labs Laboratory Tests Test 02/17/17 04:45 02/18/17 03:10 Sodium Level 137 mmol/L (136-145) 135 mmol/L (136-145) Potassium Level 4.4 mmol/L (3.5-5.1) 4.2 mmol/L (3.5-5.1) Chloride Level 99 mmol/L (98-107) 97 mmol/L (98-107) Carbon Dioxide Level 29 mmol/L (21-32) 28 mmol/L (21-32) Anion Gap 9 (6-14) 10 (6-14) Blood Urea Nitrogen 19 mg/dL (7-20) 42 mg/dL (7-20) Creatinine 5.8 mg/dL (0.6-1.0) 8.0 mg/dL (0.6-1.0) Estimated GFR (Cockcroft-Gault) 8.7 6.0 Glucose Level 85 mg/dL (70-99) 112 mg/dL (70-99) Calcium Level 8.7 mg/dL (8.5-10.1) 8.3 mg/dL (8.5-10.1) Phosphorus Level 3.8 mg/dL (2.6-4.7) 3.3 mg/dL (2.6-4.7) Magnesium Level 1.7 mg/dL (1.8-2.4) 1.6 mg/dL (1.8-2.4) Albumin 2.8 g/dL (3.4-5.0) 2.8 g/dL (3.4-5.0) Laboratory Tests Test 02/18/17 03:10 Sodium Level 135 mmol/L (136-145) Potassium Level 4.2 mmol/L (3.5-5.1) Chloride Level 97 mmol/L (98-107) Carbon Dioxide Level 28 mmol/L (21-32) Anion Gap 10 (6-14) Blood Urea Nitrogen 42 mg/dL (7-20) Creatinine 8.0 mg/dL (0.6-1.0) Estimated GFR (Cockcroft-Gault) 6.0 Glucose Level 112 mg/dL (70-99) Calcium Level 8.3 mg/dL (8.5-10.1) Phosphorus Level 3.3 mg/dL (2.6-4.7) Magnesium Level 1.6 mg/dL (1.8-2.4) Albumin 2.8 g/dL (3.4-5.0) Assessment Assessment Problems Medical Problems: (1) Acute CHF Status: Acute (2) Pneumonia Status: Acute Problems: Plan Plan of Care Problems Medical Problems: (1) Acute CHF Status: Acute (2) Pneumonia Status: Acute FRANCOIS IBARRA MD February 18, 2017 10:26
[2017-02-18] MEDS: CARVEDILOL 12.5 MG TABLET. PO SCH ×2 (13:44→18:17)
[2017-02-18] MEDS: CIPROFLOXACIN HCL 250 MG TABLET. PO SCH (13:44)
[2017-02-18] MEDS: PANTOPRAZOLE 40 MG TABLET.DR. PO SCH (13:44)
[2017-02-18] MEDS: FOLIC/VIT B COMP W-C (RENAL) TABLET. PO SCH (13:45)
[2017-02-18] MEDS: CINACALCET HCL 30 MG TABLET PO SCH (13:45)
[2017-02-18] MEDS: amLODIPine BESYLATE 10 MG TABLET PO SCH (13:46)
[2017-02-18] MEDS: LISINOPRIL 40 MG TABLET. PO SCH (13:47)
[2017-02-18] MEDS: HEPARIN PF for SUB-Q USE 5,000 UNIT/0.5 ML VIAL. SQ SCH (13:53)
[2017-02-18] MEDS ORDERED: GENTAMICIN SULFATE IV SCH ×4 (14:00)
[2017-02-18] MEDS ORDERED: NORMAL SALINE IV SCH ×4 (14:00)
[2017-02-18 15:00] VITALS: BP 135/61
[2017-02-18 18:17] VITALS: BP 135/61
--- NOTE | 2017-02-19 21:29 | PDOC ---
Provider Note Provider Note Discharge summary dictated. #[id number] YARY FAIRCHILD MD Feb 19, 2017 21:29
--- NOTE | 2017-02-20 08:20 | DS ---
DATE OF DISCHARGE: 02/18/2017 REASON FOR ADMISSION TO THE HOSPITAL: 1. Fever, sepsis, has Pseudomonas sepsis, bacteremia, line sepsis, possible pneumonitis. 2. End-stage renal disease. CONSULTATIONS: 1. Dr. Cavazos, Renal. 2. Dr. Jeison Mercado, Infectious Disease. PROCEDURES DONE: 1. Echocardiogram. 2. Dialysis. HOSPITAL COURSE: The patient is a 71-year-old female. The patient has an AV shunt. She is on dialysis, but lately it was clotting, so the patient had a temporary dialysis catheter placed 2 weeks ago. The patient was having fever with chills, was sent to the Emergency Room. Blood cultures positive for Pseudomonas bacteremia. The patient was treated with vancomycin and Zosyn initially, changed it to gentamicin. The patient had an echocardiogram, which shows good left ventricular function, 65%, normal left ventricular functions, no evidence of endocarditis. The patient was dialyzed in the hospital and was given antibiotics and fever and chills were coming down. She was feeling better and the patient needed total 2 weeks of antibiotics, has another 3 more doses of gentamicin given with dialysis and also Cipro 500 mg once daily for 6 more days and she was discharged. FINAL DIAGNOSES: 1. Sepsis secondary to Pseudomonas bacteremia. 2. Line sepsis from dialysis catheter. 3. Possible pneumonia, Pseudomonas. 4. End-stage renal disease, on hemodialysis. 5. Hypertension. 6. Hyperlipidemia. DISPOSITION: Home. Continue dialysis and gentamicin with each dialysis, total 3 more doses left and Cipro 500 mg once daily for 6 more days. We are trying to save the dialysis catheter and see how she improves. YARY FAIRCHILD MD DR: SAM/kailee JOB#: [id number] / [id number]
== END 2017-02-18 19:00 | disposition home health service (06) | DRG 314 ==
LOC: ER 17:46 → 2 SOUTH 19:23 → OBSVTOIN 20:15 → 2 SOUTH 21:29
PROVIDERS: ADMIT Internal Medicine; ATTEND Internal Medicine
PROC: 5A1D60Z (ICD-10-PCS; principal; 2017-02-10)
DX: T80.211A Bloodstream infection due to central venous catheter, initial encounter (principal); I50.33 Acute on chronic diastolic (congestive) heart failure; N18.6 End stage renal disease; J15.6 Pneumonia due to other Gram-negative bacteria; A41.52 Sepsis due to Pseudomonas; I13.2 Hypertensive heart and chronic kidney disease with heart failure and with stage 5 chronic kidney disease, or end stage renal disease; B96.5 Pseudomonas (aeruginosa) (mallei) (pseudomallei) as the cause of diseases classified elsewhere; E11.22 Type 2 diabetes mellitus with diabetic chronic kidney disease; I27.2 Other secondary pulmonary hypertension; I16.0 Hypertensive urgency; K21.9 Gastro-esophageal reflux disease without esophagitis; K59.00 Constipation, unspecified; Z96.653 Presence of artificial knee joint, bilateral; I34.0 Nonrheumatic mitral (valve) insufficiency; D64.9 Anemia, unspecified; E21.3 Hyperparathyroidism, unspecified; F32.9 Major depressive disorder, single episode, unspecified; F41.9 Anxiety disorder, unspecified; M19.90 Unspecified osteoarthritis, unspecified site; Z88.8 Allergy status to other drugs, medicaments and biological substances; Z82.49 Family history of ischemic heart disease and other diseases of the circulatory system; Z99.2 Dependence on renal dialysis; Z98.49 Cataract extraction status, unspecified eye; Z79.899 Other long term (current) drug therapy; Z79.1 Long term (current) use of non-steroidal anti-inflammatories (NSAID); Y84.8 Other medical procedures as the cause of abnormal reaction of the patient, or of later complication, without mention of misadventure at the time of the procedure
CPT/HCPCS: 36415; 71010; 71020; 74176; 80048; 80053; 80069; 80170; 82553; 83605; 83735; 83880; 84484; 85007; 85018; 85027; 85610; 85730; 87040; 87205; 87804; 93005; 93306; 94640; 94760; G0379; J0881; J1580; J1650; J2405; J2543; J3010; J3370; J7040; J7060; J7620; Q0162; Q9966

== ENCOUNTER 2017-03-25 17:24 | Emergency (ER) | payer MEDICARE, BC ==
[~2017-03-25] VITALS: Ht 162.6 cm; Wt 79.4 kg
[~2017-03-25 17:24] MED LIST changes: -CINA30TA PO; +CINA30TA2 PO; +CIPR250T30 PO; -SUCR1TAB29 PO; +SUCR1TAB35 PO
[2017-03-25 17:48] VITALS: BP 166/77
[2017-03-25 19:56] LABS: BASO # 0.1 x10^3/uL (0.0-0.2); BASO % 1 % (0-3); EOS % 5 % (0-3); HEMATOCRIT 29.7 % (36.0-47.0); HEMOGLOBIN 10.2 g/dL (12.0-15.5); LYMPH # 1.6 x10^3/uL (1.0-4.8); LYMPH % 32 % (24-48); MEAN CORPUSCULAR HEMOGLOBIN 30 pg (25-35); MEAN CORPUSCULAR HGB CONC 34 g/dL (31-37); MEAN CORPUSCULAR VOLUME 89 fL (79-100); MONO % 7 % (0-9); NEUT % 55 % (31-73); PLATELET COUNT 191 x10^3/uL (140-400); RED BLOOD COUNT 3.35 x10^6/uL (3.50-5.40); RED CELL DISTRIBUTION WIDTH 15.1 % (11.5-14.5); WHITE BLOOD COUNT 4.9 x10^3/uL (4.0-11.0)
[2017-03-25 20:25] LABS: CALCIUM 9.4 mg/dL (8.5-10.1); CREATININE 9.8 mg/dL (0.6-1.0); GFR 4.8; POTASSIUM 4.6 mmol/L (3.5-5.1)
--- NOTE | 2017-03-26 01:53 | ED.ADGEN ---
Past Medical History Past Medical History: Diabetes-Type II, GERD, Hypertension, Renal Failure, Other Additional Past Medical Histor: ESRF Past Surgical History: Knee Replacement, Other Additional Past Surgical Histo: Bx cataracts, R Carpal, R arm fistula, Axillary /Head tumor, Bx knee, Alcohol Use: Occasionally Drug Use: None Adult General Chief Complaint Chief Complaint: DIALYSIS PROBLEM HPI HPI Patient is a 71 year old woman, history of type 2 diabetes mellitus, hypertension, end stage renal disease on hemodialysis, who presents to the emergency department from her dialysis center with report of inability to use dialysis catheter. Patient had a right-sided subclavian catheter placed on March 20 at [facility], was accessed on Thursday without issue for a full dialysis session. Patient states that she is also receiving antibiotics for a bloodstream infection. She states she last received antibiotic on Thursday. She denies any new chest pain, shortness breath, weakness, numbness, tingling, nausea, vomiting, or other acute complaints. Review of Systems Review of Systems Constitutional: Denies fever or chills. [] Eyes: Denies change in visual acuity. [] HENT: Denies nasal congestion or sore throat. [] Respiratory: Denies cough or shortness of breath. [] Cardiovascular: Denies chest pain or edema. [] GI: Denies abdominal pain, nausea, vomiting, bloody stools or diarrhea. [] : Denies dysuria. [] Musculoskeletal: Denies back pain or joint pain. [] Integument: Denies rash. [] Neurologic: Denies headache, focal weakness or sensory changes. [] Endocrine: Denies polyuria or polydipsia. [] Lymphatic: Denies swollen glands. [] Psychiatric: Denies depression or anxiety. [] No complaints, inability to axis dialysis catheter. Allergies Allergies Allergies Coded Allergies Type Severity Reaction Last Updated Verified chlorhexidine Allergy Intermediate Rash 06/03/16 Yes Opioids - Morphine Analogues Adverse Reaction Intermediate Nausea and Vomiting 06/03/16 Yes Opioids-Meperidine and Related Adverse Reaction Intermediate Nausea and Vomiting 06/03/16 Yes Opioids-Methadone and Related Adverse Reaction Intermediate Nausea and Vomiting 06/03/16 Yes codeine Adverse Reaction Intermediate Nausea and Vomiting 06/03/16 Yes Physical Exam Physical Exam Constitutional: Well developed, well nourished, no acute distress, non-toxic appearance. [] HENT: Normocephalic, atraumatic, bilateral external ears normal, oropharynx moist, no oral exudates, nose normal. [] Eyes: PERRLA, EOMI, conjunctiva normal, no discharge. [] Neck: Normal range of motion, no tenderness, supple, no stridor. [] Cardiovascular:Heart rate regular rhythm, no murmur, S1, S2, no rubs or gallops. [] Lungs & Thorax: Bilateral breath sounds clear to auscultation, no wheezing, rhonchi, rales. No chest or crepitus or tenderness. Right-sided catheter in place, site is clean dry and intact, nontender. [] Abdomen: Bowel sounds normal, soft, no tenderness, no masses, no pulsatile masses. [] Skin: Warm, dry, no erythema, no rash. [] Back: No tenderness, no CVA tenderness. [] Extremities: No tenderness, no cyanosis, no clubbing, ROM intact, no edema. [] Neurologic: Alert and oriented X 3, normal motor function, normal sensory function, no focal deficits noted. [] Psychologic: Affect normal, judgement normal, mood normal. [] Current Patient Data Vital Signs Vital Signs Date Time Temp Pulse Resp B/P (MAP) Pulse Ox O2 Delivery O2 Flow Rate FiO2 03/25/17 17:48 98.0 54 18 166/77 (106) 97 Room Air 98.0 Lab Values Laboratory Tests Test 03/25/17 19:42 White Blood Count 4.9 x10^3/uL (4.0-11.0) Red Blood Count 3.35 x10^6/uL (3.50-5.40) L Hemoglobin 10.2 g/dL (12.0-15.5) L Hematocrit 29.7 % (36.0-47.0) L Mean Corpuscular Volume 89 fL (79-100) Mean Corpuscular Hemoglobin 30 pg (25-35) Mean Corpuscular Hemoglobin Concent 34 g/dL (31-37) Red Cell Distribution Width 15.1 % (11.5-14.5) H Platelet Count 191 x10^3/uL (140-400) Neutrophils (%) (Auto) 55 % (31-73) Lymphocytes (%) (Auto) 32 % (24-48) Monocytes (%) (Auto) 7 % (0-9) Eosinophils (%) (Auto) 5 % (0-3) H Basophils (%) (Auto) 1 % (0-3) Neutrophils # (Auto) 2.7 x10^3uL (1.8-7.7) Lymphocytes # (Auto) 1.6 x10^3/uL (1.0-4.8) Monocytes # (Auto) 0.3 x10^3/uL (0.0-1.1) Eosinophils # (Auto) 0.2 x10^3/uL (0.0-0.7) Basophils # (Auto) 0.1 x10^3/uL (0.0-0.2) Sodium Level 134 mmol/L (136-145) L Potassium Level 4.6 mmol/L (3.5-5.1) Chloride Level 96 mmol/L (98-107) L Carbon Dioxide Level 22 mmol/L (21-32) Anion Gap 16 (6-14) H Blood Urea Nitrogen 76 mg/dL (7-20) H Creatinine 9.8 mg/dL (0.6-1.0) H Estimated GFR (Cockcroft-Gault) 4.8 Glucose Level 86 mg/dL (70-99) Calcium Level 9.4 mg/dL (8.5-10.1) Laboratory Tests 03/25/17 19:42 Laboratory Tests 03/25/17 19:42 EKG EKG EC: Sinus rhythm, heart rate 55 beats minute, upright axis, QTC of 446, [place] of 320, QRS of 90, no ST elevations or depressions, contour normality is noted in the septal leads, and inferior leads, does not meet STEMI criteria, abnormal ECG, as interpreted by me. Radiology/Procedures Radiology/Procedures Chest x-ray: One view: Patient with right-sided catheter in place, no infiltrates, no effusions, noted with varus, no soft tissue or bony abnormalities identified. As interpreted by me. [] Course & Med Decision Making Course & Med Decision Making Pertinent Labs and Imaging studies reviewed. (See chart for details) Patient with a potassium of 4.6, oxygen saturation is in the upper 90s on room air, patient is resting comfortably with no signs of compromise. No indications for emergent dialysis. Patient's examination and laboratory studies discussed with Dr. Mercado, on-call for the patient's primary ground support agent, Dr. Cavazos, as there are no indications for emergent dialysis, he recommends discharge for the patient home at this time, plan for the patient to follow-up in the morning with interventional radiology to replace the patient's catheter. Patient is agreeable with this plan. I did discuss the patient's dialysis access issues with Dr. Sofia, of interventional radiology, who will inform Dr. Martin, who did perform the previous procedure. A message was left with the patient's pertinent details and contact information at the interventional radiology voicemail. Additionally, patient was given the number for interventional radiology scheduling, and informed to call after 7:00 in the morning to set up for placement of her dialysis catheter. Patient instructed to contact the emergency department or her dialysis center she has difficulty in obtaining access to IR r or other competitions arise in obtaining HD access and dialysis tomorrow. Patient voiced understanding and agreement with plan as stated, discharged home in stable condition with plan as above. Dragon Disclaimer Dragon Disclaimer This electronic medical record was generated, in whole or in part, using a voice recognition dictation system. Departure Impression: Primary Impression: Dialysis catheter clot or failure Disposition: HOME, SELF-CARE Condition: STABLE MARIOLA GONZALES DO Mar 26, 2017 01:53
--- NOTE | 2017-03-26 06:54 | EKG ---
[facility] [address] [place] [address] Test Date: 2017-03-25 Test Time: 18:05:03 Pat Name: EMERALD MAI Department: Room: Gender: F Security Strategist: : 1945 Requested By: MARIOLA GONZALES Order Number: [id number] Reading MD: Measurements Intervals [place] Rate: 55 P: 28 DE: 320 QRS: -2 QRSD: 90 T: 28 QT: 464 QTc: 446 Interpretive Statements SINUS RHYTHM PROLONGED DE INTERVAL LEFTWARD AXIS RI6.01 Unconfirmed report No previous ECG available for comparison
--- NOTE | 2017-03-26 08:20 | RAD ---
Portable chest, 03/25/2017: History: Hemodialysis catheter malfunction, pain at site Comparison is made to a study from 02/17/2017. A new right jugular hemodialysis type catheter is in place with its tip lying in the superior vena cava. The heart size and pulmonary vascularity are normal. There is calcific plaquing and tortuosity of the thoracic aorta. No pulmonary infiltrates are seen. There is no evidence of pleural fluid or pneumothorax. Moderate arthritic change is present at the right shoulder. IMPRESSION: 1. The right jugular dialysis catheter extends into the superior vena cava. 2. No acute cardiopulmonary abnormality is detected.
== END 2017-03-25 21:45 | disposition home or self-care (01) ==
LOC: ER 17:24
DX: T82.898A Other specified complication of vascular prosthetic devices, implants and grafts, initial encounter (principal); E11.22 Type 2 diabetes mellitus with diabetic chronic kidney disease; I12.0 Hypertensive chronic kidney disease with stage 5 chronic kidney disease or end stage renal disease; N18.6 End stage renal disease; Z99.2 Dependence on renal dialysis; K21.9 Gastro-esophageal reflux disease without esophagitis; Z96.659 Presence of unspecified artificial knee joint; Y73.8 Miscellaneous gastroenterology and urology devices associated with adverse incidents, not elsewhere classified; Y92.89 Other specified places as the place of occurrence of the external cause
CPT/HCPCS: 36415; 71010; 80048; 85027; 93005; 99285-25

== ENCOUNTER → 2017-03-26 | Outpatient (CLI) | payer MEDICARE, BC ==
[~2017-03-26] VITALS: Ht 167.6 cm; Wt 78.5 kg
[~2017-03-26] MED LIST changes: +HEPARIN for IV BOLUS 10,000 UNIT/10 ML VIAL. ONE; +LIDOCAINE 1%/EPI 1:100,000 20 ML VIAL. INJ ONE; +LIDOCAINE 1%/EPI 1:100,000 20 ML VIAL. ONE
[2017-03-26 13:45] VITALS: BP 157/74
[2017-03-26 14:07] VITALS: BP 131/73
--- NOTE | 2017-03-26 15:06 | RAD ---
Replacement of right internal jugular tunneled dialysis catheter 03/26/2017 Indication: Partial retraction of right internal jugular dialysis catheter Discussion: The risks and benefits of the procedure including limited to bleeding, infection, pain, and catheter removal were discussed patient. Informed consent was obtained. The patient was brought to fluoroscopy suite and placed in the supine position. A timeout procedure was performed. The pre-existing right internal jugular tunnel dialysis catheter was prepped and draped using maximal sterile barrier technique. Fluoroscopic evaluation demonstrated retraction of the catheter with tip in the superior vena cava. 2 stiff angled Glidewires were advanced through the pre-existing catheter into the inferior vena cava. The pre-existing catheter was then removed over these wires and a new 23 cm cuff palindrome tunneled dialysis catheter was advanced such that its tip was in the mid right atrium under fluoroscopic imaging, with the patient supine the new catheter was found to flush and aspirate normally. The secured in place. Sterile dressing was applied. No immediate complications were identified. Fluoroscopy time: 6.2 minutes. Dose area product: 11 Gycm2 Sedation: Local anesthesia only Impression: Successful replacement of a right internal jugular tunnel dialysis catheter
== END | disposition home or self-care (01) ==
LOC: INTRAD 13:08
PROVIDERS: ATTEND Internal Medicine Nephrology
DX: Z99.2 Dependence on renal dialysis (principal); I13.2 Hypertensive heart and chronic kidney disease with heart failure and with stage 5 chronic kidney disease, or end stage renal disease; E11.22 Type 2 diabetes mellitus with diabetic chronic kidney disease; N18.6 End stage renal disease; I50.9 Heart failure, unspecified; F41.9 Anxiety disorder, unspecified; F32.9 Major depressive disorder, single episode, unspecified; K21.9 Gastro-esophageal reflux disease without esophagitis; Z87.440 Personal history of urinary (tract) infections; Z87.01 Personal history of pneumonia (recurrent); Z82.49 Family history of ischemic heart disease and other diseases of the circulatory system; Z96.651 Presence of right artificial knee joint; Z88.6 Allergy status to analgesic agent; Z88.8 Allergy status to other drugs, medicaments and biological substances
CPT/HCPCS: 36581; 77001; C1750; C1769; J3490

== ENCOUNTER 2017-04-13 13:19 | Emergency (ER) | payer MEDICARE, BC ==
[~2017-04-13] VITALS: Ht 167.6 cm; Wt 81.2 kg
[~2017-04-13 13:19] MED LIST changes: -HEPARIN for IV BOLUS 10,000 UNIT/10 ML VIAL. ONE; -LIDOCAINE 1%/EPI 1:100,000 20 ML VIAL. INJ ONE; -LIDOCAINE 1%/EPI 1:100,000 20 ML VIAL. ONE
--- NOTE | 2017-04-13 14:34 | PHYS DOC ---
Past Medical History Past Medical History: Diabetes-Type II, GERD, Hypertension, Renal Failure, Other Additional Past Medical Histor: ESRF Past Surgical History: Knee Replacement, Other Additional Past Surgical Histo: Bx cataracts, R Carpal, R arm fistula, Axillary /Head tumor, Bx knee, Alcohol Use: Occasionally Drug Use: None Adult General Chief Complaint Chief Complaint: DIALYSIS PROBLEM HPI HPI Patient is a 71 year old female who presents with concerned about her dialysis catheter in her right chest. Patient states that the dialysis catheter is falling out. Patient was posted dialyze this morning however due to power outage is was unable to. Patient denies any chest pain or shortness of breath. Patient denies any fevers. Patient denies any other symptoms. Review of Systems Review of Systems GEN: Denies fevers, chills, sweats HEENT: Denies blurred vision, sore throat CV: Denies chest pain RESP: Denies shortness of air, cough GI: Denies n/v/d NEURO: Denies confusion, dizziness MSK: Denies weakness, joint pain/swelling Allergies Allergies Allergies Coded Allergies Type Severity Reaction Last Updated Verified chlorhexidine Allergy Intermediate Rash 06/03/16 Yes Opioids - Morphine Analogues Adverse Reaction Intermediate Nausea and Vomiting 06/03/16 Yes Opioids-Meperidine and Related Adverse Reaction Intermediate Nausea and Vomiting 06/03/16 Yes Opioids-Methadone and Related Adverse Reaction Intermediate Nausea and Vomiting 06/03/16 Yes codeine Adverse Reaction Intermediate Nausea and Vomiting 06/03/16 Yes Physical Exam Physical Exam GEN.: No apparent distress. Alert and oriented. HEENT: Head is normocephalic, atraumatic NECK: Supple. LUNGS: CTAB. HEART: RRR, S1, S2 present. Peripheral pulses intact ABDOMEN: Soft, nontender. Positive bowel sounds. EXTREMITIES: Without any cyanosis. NEUROLOGIC: Normal speech, normal tone PSYCHIATRIC: Normal affect, normal mood. SKIN: No ulcerations Chest Wall: Dialysis catheter inserted into the right chest, no signs of infection around the insertion site Current Patient Data Vital Signs Vital Signs Date Time Temp Pulse Resp B/P (MAP) Pulse Ox O2 Delivery O2 Flow Rate FiO2 04/13/17 13:34 97.8 59 24 188/87 (120) 99 Room Air 97.8 EKG EKG [] Radiology/Procedures Radiology/Procedures CHEST PA LATERAL Clinical Indication: dialysis catheter being pulled out Comparison: Chest radiograph dated 03/25/2017, fluoroscopic images dated 03/26/2017 Findings: Interval retraction of right IJ dialysis catheter with tip now at the brachiocephalic junction. Stable lung volumes. No focal consolidation. Stable pulmonary vasculature. No pleural effusion or pneumothorax. The cardiomediastinal silhouette is stable. Stable atherosclerotic thoracic aorta. No acute osseous abnormality. Advanced right greater than left glenohumeral joint arthrosis. IMPRESSION: 1. Interval retraction of right IJ dialysis catheter with tip now at the brachiocephalic junction. 2. No acute cardiopulmonary process.[] Course & Med Decision Making Course & Med Decision Making Pertinent Labs and Imaging studies reviewed. (See chart for details) 1455: Explained x-ray results with the patient and the catheter has moved however it appears to still be in the proper placement and recommended she follow up with her PCP to further evaluate MDM: After reviewing the chart, CC/HPI/PMH, physical exam, CRX, do not believe the patient has emergent medical condition warranting further workup and/or admission at this time. She is asked Are still in place however has been pulled back and recommended she follow up with her PCP or community affairs manager further evaluated and possibly replace the dialysis catheter. Additional verbal discharge instructions were provided to the patient and that if symptoms get worse or any new symptoms arise that are worrisome to the patient she is to return to the emergency room immediately [] Dragon Disclaimer Dragon Disclaimer This electronic medical record was generated, in whole or in part, using a voice recognition dictation system. Departure Departure Impression: Primary Impression: Complications, dialysis, catheter, mechanical Disposition: 01 HOME, SELF-CARE Condition: STABLE Referrals: YARY FAIRCHILD MD (PCP) Patient Instructions: Dialysis, Care After Additional Instructions: Please follow up with her family doctor for further care of a dialysis catheter Problem Qualifiers Primary Impression: Complications, dialysis, catheter, mechanical Encounter type: initial encounter Qualified Codes: T82.49XA - Other complication of vascular dialysis catheter, initial encounter SALVADOR NARVAEZ DO Apr 13, 2017 14:34
--- NOTE | 2017-04-13 14:49 | RAD ---
CHEST PA LATERAL Clinical Indication: dialysis catheter being pulled out Comparison: Chest radiograph dated 03/25/2017, fluoroscopic images dated 03/26/2017 Findings: Interval retraction of right IJ dialysis catheter with tip now at the brachiocephalic junction. Stable lung volumes. No focal consolidation. Stable pulmonary vasculature. No pleural effusion or pneumothorax. The cardiomediastinal silhouette is stable. Stable atherosclerotic thoracic aorta. No acute osseous abnormality. Advanced right greater than left glenohumeral joint arthrosis. IMPRESSION: 1. Interval retraction of right IJ dialysis catheter with tip now at the brachiocephalic junction. 2. No acute cardiopulmonary process.
[2017-04-13 15:09] VITALS: BP 153/69
== END 2017-04-13 15:20 | disposition home or self-care (01) ==
LOC: ER 13:19
DX: T82.49XA Other complication of vascular dialysis catheter, initial encounter (principal); E11.22 Type 2 diabetes mellitus with diabetic chronic kidney disease; I12.0 Hypertensive chronic kidney disease with stage 5 chronic kidney disease or end stage renal disease; N18.6 End stage renal disease; Z99.2 Dependence on renal dialysis; K21.9 Gastro-esophageal reflux disease without esophagitis; Z96.659 Presence of unspecified artificial knee joint; Z88.5 Allergy status to narcotic agent; Z88.8 Allergy status to other drugs, medicaments and biological substances; Y73.8 Miscellaneous gastroenterology and urology devices associated with adverse incidents, not elsewhere classified; Y92.89 Other specified places as the place of occurrence of the external cause
CPT/HCPCS: 71020; 99284

== ENCOUNTER 2017-04-17 15:16 | Inpatient (IN) | payer MEDICARE, BC ==
[~2017-04-17] VITALS: Ht 167.6 cm; Wt 78.2 kg
[2017-04-17 15:56] LABS: BASO % 1 % (0-3); EOS % 1 % (0-3); HEMATOCRIT 29.5 % (36.0-47.0); HEMOGLOBIN 10.2 g/dL (12.0-15.5); LYMPH # 1.6 x10^3/uL (1.0-4.8); LYMPH % 30 % (24-48); MEAN CORPUSCULAR HEMOGLOBIN 30 pg (25-35); MEAN CORPUSCULAR HGB CONC 35 g/dL (31-37); MEAN CORPUSCULAR VOLUME 87 fL (79-100); MONO % 7 % (0-9); NEUT % 61 % (31-73); PLATELET COUNT 146 x10^3/uL (140-400); RED CELL DISTRIBUTION WIDTH 16.2 % (11.5-14.5); WHITE BLOOD COUNT 5.5 x10^3/uL (4.0-11.0)
--- NOTE | 2017-04-17 16:06 | PHYS DOC ---
Past Medical History Past Medical History: Diabetes-Type II, GERD, Hypertension, Renal Failure, Other Additional Past Medical Histor: ESRF Past Surgical History: Knee Replacement, Other Additional Past Surgical Histo: Bx cataracts, R Carpal, R arm fistula, Axillary /Head tumor, Bx knee, Alcohol Use: Occasionally Drug Use: None Adult General Chief Complaint Chief Complaint: NAUSEA/VOMITING/DIARRHA HPI HPI 89-year-old female with a history of end-stage renal disease presenting to the emergency department today with generalized nausea over the past 10 hours. She reports having history of her right antecubital fistula failure status post a port placement on the right subclavicular region. She last received dialysis yesterday however on her normal schedule see receive dialysis on Thursday and Thursday and Thursday. She denies any pain anywhere or diaphoresis. She reports just generally feeling bad. Location generalized. Duration intermittent. No alleviating or exacerbating factors present. Review of systems is negative for chest pain abdominal pain vomiting fevers chills headache. neg for focal numbness weakness or tingling. All other review of systems is negative unless otherwise noted in history of present illness. ED course: 71-year-old female status post port placement with history of end- stage renal disease presenting to the emergency department today with generalized weakness. Triage vital signs. Pertinent physical exam findings showed a normal neurologic exam. GCS of 15 alert symmetric facial smile equal round reactive pupils and 5 out of 5 strength in all extremities. The remainder the patient's examination was unremarkable. She was well-appearing and not in any distress. EKG and blood work were obtained along with chest x-ray. The patient does not make urine thus urinalysis was not obtained. EKG shows sinus rhythm with a mildly prolonged NC interval. Otherwise axis is mildly leftward. ST segments congruent. Reviewed by myself. Blood work shows elevated lipase. Given the patient's nausea and vomiting it is possible that this is a clinical presentation of mild episode of pancreatitis. It is elevated compared to previous in February. Though, the patient does have end-stage renal disease so this may be an aberrantly lab. Given her symptomatology, the patient was admitted for serial blood testing further evaluation and care along with IV fluids and nausea medication. Review of Systems Review of Systems SEE ABOVE. Current Medications Current Medications Current Medications Medications (Trade) Dose Ordered Sig/Any Start Time Stop Time Status Last Admin Dose Admin Ondansetron HCl (Zofran) 4 mg 1X ONCE 04/17/17 16:45 04/17/17 16:46 DC 04/17/17 16:45 4 MG Allergies Allergies Allergies Coded Allergies Type Severity Reaction Last Updated Verified chlorhexidine Allergy Intermediate Rash 06/03/16 Yes Opioids - Morphine Analogues Adverse Reaction Intermediate Nausea and Vomiting 06/03/16 Yes Opioids-Meperidine and Related Adverse Reaction Intermediate Nausea and Vomiting 06/03/16 Yes Opioids-Methadone and Related Adverse Reaction Intermediate Nausea and Vomiting 06/03/16 Yes codeine Adverse Reaction Intermediate Nausea and Vomiting 06/03/16 Yes Physical Exam Physical Exam SEE ABOVE Constitutional: Well developed, well nourished, no acute distress, non-toxic appearance. [] HENT: Normocephalic, atraumatic, bilateral external ears normal, oropharynx moist, no oral exudates, nose normal. [] Eyes: PERRLA, EOMI, conjunctiva normal, no discharge. [] Neck: Normal range of motion, no tenderness, supple, no stridor. [] Cardiovascular:Heart rate regular rhythm, no murmur [] Lungs & Thorax: Bilateral breath sounds clear to auscultation [] Abdomen: Bowel sounds normal, soft, no tenderness, no masses, no pulsatile masses. [] Skin: Warm, dry, no erythema, no rash. [] Back: No tenderness, no CVA tenderness. [] Extremities: No tenderness, no cyanosis, no clubbing, ROM intact, no edema. [] Neurologic: Mental status: Awake oriented and alert x3 Cranial nerves: Extraocular movements intact, eyebrows sarah bilaterally smile symmetric, uvula elevation, shoulder shrug intact, tongue protrusion normal DTRs: 2+ Sensation: equal and normal in all extremities Strength: 5/5 in upper and lower extremities bilaterally Psychologic: Affect normal, judgement normal, mood normal. [] Current Patient Data Vital Signs Vital Signs Date Time Temp Pulse Resp B/P (MAP) Pulse Ox O2 Delivery O2 Flow Rate FiO2 04/17/17 16:58 66 200/91 (127) 95 Room Air 04/17/17 15:30 98.5 16 98.5 Lab Values Laboratory Tests Test 04/17/17 15:40 04/17/17 16:30 White Blood Count 5.5 x10^3/uL (4.0-11.0) Red Blood Count 3.40 x10^6/uL (3.50-5.40) L Hemoglobin 10.2 g/dL (12.0-15.5) L Hematocrit 29.5 % (36.0-47.0) L Mean Corpuscular Volume 87 fL (79-100) Mean Corpuscular Hemoglobin 30 pg (25-35) Mean Corpuscular Hemoglobin Concent 35 g/dL (31-37) Red Cell Distribution Width 16.2 % (11.5-14.5) H Platelet Count 146 x10^3/uL (140-400) Neutrophils (%) (Auto) 61 % (31-73) Lymphocytes (%) (Auto) 30 % (24-48) Monocytes (%) (Auto) 7 % (0-9) Eosinophils (%) (Auto) 1 % (0-3) Basophils (%) (Auto) 1 % (0-3) Neutrophils # (Auto) 3.3 x10^3uL (1.8-7.7) Lymphocytes # (Auto) 1.6 x10^3/uL (1.0-4.8) Monocytes # (Auto) 0.4 x10^3/uL (0.0-1.1) Eosinophils # (Auto) 0.1 x10^3/uL (0.0-0.7) Basophils # (Auto) 0.0 x10^3/uL (0.0-0.2) Sodium Level 139 mmol/L (136-145) Potassium Level 4.2 mmol/L (3.5-5.1) Chloride Level 97 mmol/L (98-107) L Carbon Dioxide Level 29 mmol/L (21-32) Anion Gap 13 (6-14) Blood Urea Nitrogen 41 mg/dL (7-20) H Creatinine 8.6 mg/dL (0.6-1.0) H Estimated GFR (Cockcroft-Gault) 5.6 Glucose Level 121 mg/dL (70-99) H Calcium Level 9.4 mg/dL (8.5-10.1) Total Bilirubin 0.5 mg/dL (0.2-1.0) Direct Bilirubin 0.1 mg/dL (0.0-0.2) Aspartate Amino Transferase (AST) 17 U/L (15-37) Alanine Aminotransferase (ALT) 9 U/L (14-59) L Alkaline Phosphatase 102 U/L (46-116) Troponin I Quantitative 0.031 ng/mL (0.000-0.055) Total Protein 7.9 g/dL (6.4-8.2) Albumin 3.5 g/dL (3.4-5.0) Lipase 451 U/L (73-393) H Lactic Acid Level 1.2 mmol/L (0.4-2.0) Laboratory Tests 04/17/17 15:40 Laboratory Tests 04/17/17 15:40 EKG EKG [] Radiology/Procedures Radiology/Procedures [] Course & Med Decision Making Course & Med Decision Making Pertinent Labs and Imaging studies reviewed. (See chart for details) [] Dragon Disclaimer Dragon Disclaimer This electronic medical record was generated, in whole or in part, using a voice recognition dictation system. Departure Departure Impression: Primary Impression: NAUSEA Disposition: ADMITTED INPATIENT Admitting Physician: Yasir Bunch Condition: STABLE Referrals: YASIR BUNCH MD (PCP) TIGRE WHITE MD Apr 17, 2017 16:06
[2017-04-17 16:08] LABS: CALCIUM 9.4 mg/dL (8.5-10.1); CREATININE 8.6 mg/dL (0.6-1.0); GFR 5.6; POTASSIUM 4.2 mmol/L (3.5-5.1)
[2017-04-17 16:14] LABS: ALBUMIN 3.5 g/dL (3.4-5.0); DIRECT BILIRUBIN 0.1 mg/dL (0.0-0.2); TOTAL BILIRUBIN 0.5 mg/dL (0.2-1.0); TOTAL PROTEIN 7.9 g/dL (6.4-8.2)
[2017-04-17] MEDS ORDERED: ONDANSETRON PF 4 MG/2 ML VIAL. IV ONE (16:45)
--- NOTE | 2017-04-17 16:53 | RAD ---
CT of the head without contrast, 04/17/2017: History: Generalized weakness Comparison is made to a study from 08/08/2009. There is mild cerebral atrophy. There are moderate patchy lucencies in the deep white matter bilaterally compatible with chronic ischemic change. There is a small old lacunar infarct along the lateral aspect of left caudate nucleus. The ventricles are within normal limits in size. There is no shift of the midline structures. There is no evidence of acute intracranial hemorrhage or mass effect. IMPRESSION: 1. Chronic findings as described above. 2. No acute intracranial abnormality is detected. PQRS Compliance Statement: One or more of the following individualized dose reduction techniques were utilized for this examination: 1. Automated exposure control 2. Adjustment of the mA and/or kV according to patient size 3. Use of iterative reconstruction technique
[2017-04-17] MEDS ORDERED: ONDANSETRON PF 4 MG/2 ML VIAL. IV PRN (17:15)
[2017-04-17] MEDS: hydrALAZINE 20 MG/ML VIAL. IVP PRN ×2 (18:30→23:46)
[2017-04-17 19:00] VITALS: BP 174/85
[2017-04-17] MEDS ORDERED: fentaNYL PF VIAL 100 MCG/2 ML VIAL IV PRN (19:45)
[2017-04-17] MEDS ORDERED: cloNIDine HCL 0.1 MG TABLET PO PRN (19:45)
[2017-04-17] MEDS: LATANOPROST 0.005% OPHTH SOLUTION 2.5ML BOTTLE. OU SCH (20:31)
[2017-04-17] MEDS: LISINOPRIL 40 MG TABLET. PO SCH (20:32)
[2017-04-17] MEDS: SEVELAMER CARBONATE 800 MG TABLET. PO SCH (20:32)
[2017-04-17] MEDS: CARVEDILOL 12.5 MG TABLET. PO SCH (20:32)
[2017-04-17] MEDS: ACETAMINOPHEN 325 MG TABLET. PO PRN (20:37)
[2017-04-17] MEDS: PANTOPRAZOLE 40 MG TABLET.DR. PO SCH (22:06)
[2017-04-17] MEDS: ZOLPIDEM 5 MG TABLET. PO PRN (22:08)
[2017-04-17 23:00] VITALS: BP 173/74
[2017-04-17] MEDS: ONDANSETRON PF 4 MG/2 ML VIAL. IV PRN (23:45)
[2017-04-18] VITALS (7 sets, daily range): BP systolic 141–191; BP diastolic 71–93
[2017-04-18] MEDS: ACETAMINOPHEN 325 MG TABLET. PO PRN ×2 (02:59→18:05)
[2017-04-18] MEDS ORDERED: PANTOPRAZOLE 40 MG TABLET.DR. PO SCH ×2 (07:00→07:30)
[2017-04-18] MEDS: SUCRALFATE 1 GM TABLET. PO SCH ×3 (07:30→17:14)
[2017-04-18] MEDS ORDERED: IV NORMAL SALINE 1000ML BAG 1,000 ML IV PRN ×2 (07:40)
[2017-04-18] MEDS ORDERED: 0.9 % SODIUM CHLORIDE 10 ML DISP.SYRIN. IV PRN ×3 (07:45→08:15)
[2017-04-18] MEDS ORDERED: DIALYSIS PATIENT. MC PRN (07:45)
[2017-04-18] MEDS ORDERED: diphenhydrAMINE 50 MG/ML VIAL IV PRN ×2 (07:45)
[2017-04-18 07:49] LABS: BASO % 1 % (0-3); EOS % 2 % (0-3); HEMATOCRIT 30.6 % (36.0-47.0); HEMOGLOBIN 10.3 g/dL (12.0-15.5); LYMPH # 1.3 x10^3/uL (1.0-4.8); LYMPH % 20 % (24-48); MEAN CORPUSCULAR HEMOGLOBIN 30 pg (25-35); MEAN CORPUSCULAR HGB CONC 34 g/dL (31-37); MEAN CORPUSCULAR VOLUME 88 fL (79-100); MONO % 8 % (0-9); NEUT % 70 % (31-73); PLATELET COUNT 134 x10^3/uL (140-400); RED BLOOD COUNT 3.48 x10^6/uL (3.50-5.40); RED CELL DISTRIBUTION WIDTH 15.8 % (11.5-14.5); WHITE BLOOD COUNT 6.5 x10^3/uL (4.0-11.0)
[2017-04-18] MEDS: SEVELAMER CARBONATE 800 MG TABLET. PO SCH ×3 (08:00→17:14)
[2017-04-18 08:01] LABS: ALBUMIN 3.5 g/dL (3.4-5.0); ALBUMIN/GLOBULIN RATIO 0.8 (1.0-1.7); CREATININE 10.5 mg/dL (0.6-1.0); GFR 4.4; TOTAL BILIRUBIN 0.4 mg/dL (0.2-1.0); TOTAL PROTEIN 7.9 g/dL (6.4-8.2)
[2017-04-18] MEDS: ONDANSETRON PF 4 MG/2 ML VIAL. IV PRN ×2 (08:04→17:15)
--- NOTE | 2017-04-18 08:27 | PDOC1 ---
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 It occurred Brenden morning upon waking. There was no abdominal pain but she did have chills along with what she feels is an elevated temperature of 98degreesF. In the ED her labs were remarkable for ESRD changes in BUN and Cr. Mildly elevated lipase at 451. No leukocytosis. In addition hypertensive urgency was present with SBP in 200s. A CT of the the head was negative. She is admitted to the medical surgical unit. Consultations have been place with GI and nephrology. Problem List Problems Medical Problems: (1) R11.0 Status: Acute Past Medical History Cardiovascular: CHF (diastolic EF normal ), HTN CENTRAL NERVOUS SYSTEM: Other GI: GERD, Gastritis Heme/Onc: Anemia NOS (ESRD Fe ) Psych: Anxiety, Depression Musculoskeletal: Osteoarthritis (generalized ) ENT: Allergic Rhinitis, Other (glaucoma) Renal/: Chronic renal failure (ESRD hemodialysis MWF), Other Endocrine: Hyperparathyroidism (secondary ) Past Surgical History PSH AV fistula redo 04/16/17 temporary dialysis cath R ant chest, R breast biopsy negative, carpal tunnel surgery, AV shunt Past Surgical History: Cataract Removal, Total knee replacement Past Family History Family History: Heart Disease, Hypertension, Stroke Past Social History PSH neg h/o tobacco, ETOH or illicit drug use Review of Symptoms Review of Symptoms A 14 point ROS was completed with the following noted as positive: per HPI Other systems reviewed and negative. Medications Medication reviewed and reconciled. Allergy Allergies Coded Allergies Type Severity Reaction Last Updated Verified chlorhexidine Allergy Intermediate Rash 06/03/16 Yes Opioids - Morphine Analogues Adverse Reaction Intermediate Nausea and Vomiting 06/03/16 Yes Opioids-Meperidine and Related Adverse Reaction Intermediate Nausea and Vomiting 06/03/16 Yes Opioids-Methadone and Related Adverse Reaction Intermediate Nausea and Vomiting 06/03/16 Yes codeine Adverse Reaction Intermediate Nausea and Vomiting 06/03/16 Yes Physical Exam Physical Exam General appearance - alert, chronically ill appearing, and in no distress Mental Status - alert, oriented to person, place, and time, affect appropriate to mood Head - normal Chest - clear to auscultation, no wheezes, rales or rhonchi Heart - S1 and S2 normal Abdomen - soft, nontender, nondistended, BS hypo all quad Neurological - no acute neurological deficit Musculoskeletal - no muscular tenderness noted Extremities - no pedal edema Skin - warm and dry VTE Prophylaxis Ordered VTE Prophylaxis Devices: Yes VTE Pharmacological Prophylaxi: No Assessment Labs Laboratory Tests Test 04/17/17 15:40 04/17/17 16:30 04/17/17 20:55 04/18/17 06:15 White Blood Count 5.5 x10^3/uL (4.0-11.0) 6.5 x10^3/uL (4.0-11.0) Red Blood Count 3.40 x10^6/uL (3.50-5.40) 3.48 x10^6/uL (3.50-5.40) Hemoglobin 10.2 g/dL (12.0-15.5) 10.3 g/dL (12.0-15.5) Hematocrit 29.5 % (36.0-47.0) 30.6 % (36.0-47.0) Mean Corpuscular Volume 87 fL (79-100) 88 fL (79-100) Mean Corpuscular Hemoglobin 30 pg (25-35) 30 pg (25-35) Mean Corpuscular Hemoglobin Concent 35 g/dL (31-37) 34 g/dL (31-37) Red Cell Distribution Width 16.2 % (11.5-14.5) 15.8 % (11.5-14.5) Platelet Count 146 x10^3/uL (140-400) 134 x10^3/uL (140-400) Neutrophils (%) (Auto) 61 % (31-73) 70 % (31-73) Lymphocytes (%) (Auto) 30 % (24-48) 20 % (24-48) Monocytes (%) (Auto) 7 % (0-9) 8 % (0-9) Eosinophils (%) (Auto) 1 % (0-3) 2 % (0-3) Basophils (%) (Auto) 1 % (0-3) 1 % (0-3) Neutrophils # (Auto) 3.3 x10^3uL (1.8-7.7) 4.5 x10^3uL (1.8-7.7) Lymphocytes # (Auto) 1.6 x10^3/uL (1.0-4.8) 1.3 x10^3/uL (1.0-4.8) Monocytes # (Auto) 0.4 x10^3/uL (0.0-1.1) 0.5 x10^3/uL (0.0-1.1) Eosinophils # (Auto) 0.1 x10^3/uL (0.0-0.7) 0.1 x10^3/uL (0.0-0.7) Basophils # (Auto) 0.0 x10^3/uL (0.0-0.2) 0.0 x10^3/uL (0.0-0.2) Sodium Level 139 mmol/L (136-145) 141 mmol/L (136-145) Potassium Level 4.2 mmol/L (3.5-5.1) 4.0 mmol/L (3.5-5.1) Chloride Level 97 mmol/L (98-107) 98 mmol/L (98-107) Carbon Dioxide Level 29 mmol/L (21-32) 32 mmol/L (21-32) Anion Gap 13 (6-14) 11 (6-14) Blood Urea Nitrogen 41 mg/dL (7-20) 49 mg/dL (7-20) Creatinine 8.6 mg/dL (0.6-1.0) 10.5 mg/dL (0.6-1.0) Estimated GFR (Cockcroft-Gault) 5.6 4.4 Glucose Level 121 mg/dL (70-99) 111 mg/dL (70-99) Calcium Level 9.4 mg/dL (8.5-10.1) 9.0 mg/dL (8.5-10.1) Total Bilirubin 0.5 mg/dL (0.2-1.0) 0.4 mg/dL (0.2-1.0) Direct Bilirubin 0.1 mg/dL (0.0-0.2) Aspartate Amino Transf (AST/SGOT) 17 U/L (15-37) 16 U/L (15-37) Alanine Aminotransferase (ALT/SGPT) 9 U/L (14-59) 11 U/L (14-59) Alkaline Phosphatase 102 U/L (46-116) 93 U/L (46-116) Troponin I Quantitative 0.031 ng/mL (0.000-0.055) Total Protein 7.9 g/dL (6.4-8.2) 7.9 g/dL (6.4-8.2) Albumin 3.5 g/dL (3.4-5.0) 3.5 g/dL (3.4-5.0) Lipase 451 U/L (73-393) Lactic Acid Level 1.2 mmol/L (0.4-2.0) Glucose (Fingerstick) 107 mg/dL (70-99) BUN/Creatinine Ratio 5 (6-20) Albumin/Globulin Ratio 0.8 (1.0-1.7) Test 04/18/17 08:04 Glucose (Fingerstick) 118 mg/dL (70-99) Laboratory Tests Test 04/17/17 15:40 04/17/17 16:30 04/17/17 20:55 04/18/17 06:15 White Blood Count 5.5 x10^3/uL (4.0-11.0) 6.5 x10^3/uL (4.0-11.0) Red Blood Count 3.40 x10^6/uL (3.50-5.40) 3.48 x10^6/uL (3.50-5.40) Hemoglobin 10.2 g/dL (12.0-15.5) 10.3 g/dL (12.0-15.5) Hematocrit 29.5 % (36.0-47.0) 30.6 % (36.0-47.0) Mean Corpuscular Volume 87 fL (79-100) 88 fL (79-100) Mean Corpuscular Hemoglobin 30 pg (25-35) 30 pg (25-35) Mean Corpuscular Hemoglobin Concent 35 g/dL (31-37) 34 g/dL (31-37) Red Cell Distribution Width 16.2 % (11.5-14.5) 15.8 % (11.5-14.5) Platelet Count 146 x10^3/uL (140-400) 134 x10^3/uL (140-400) Neutrophils (%) (Auto) 61 % (31-73) 70 % (31-73) Lymphocytes (%) (Auto) 30 % (24-48) 20 % (24-48) Monocytes (%) (Auto) 7 % (0-9) 8 % (0-9) Eosinophils (%) (Auto) 1 % (0-3) 2 % (0-3) Basophils (%) (Auto) 1 % (0-3) 1 % (0-3) Neutrophils # (Auto) 3.3 x10^3uL (1.8-7.7) 4.5 x10^3uL (1.8-7.7) Lymphocytes # (Auto) 1.6 x10^3/uL (1.0-4.8) 1.3 x10^3/uL (1.0-4.8) Monocytes # (Auto) 0.4 x10^3/uL (0.0-1.1) 0.5 x10^3/uL (0.0-1.1) Eosinophils # (Auto) 0.1 x10^3/uL (0.0-0.7) 0.1 x10^3/uL (0.0-0.7) Basophils # (Auto) 0.0 x10^3/uL (0.0-0.2) 0.0 x10^3/uL (0.0-0.2) Sodium Level 139 mmol/L (136-145) 141 mmol/L (136-145) Potassium Level 4.2 mmol/L (3.5-5.1) 4.0 mmol/L (3.5-5.1) Chloride Level 97 mmol/L (98-107) 98 mmol/L (98-107) Carbon Dioxide Level 29 mmol/L (21-32) 32 mmol/L (21-32) Anion Gap 13 (6-14) 11 (6-14) Blood Urea Nitrogen 41 mg/dL (7-20) 49 mg/dL (7-20) Creatinine 8.6 mg/dL (0.6-1.0) 10.5 mg/dL (0.6-1.0) Estimated GFR (Cockcroft-Gault) 5.6 4.4 Glucose Level 121 mg/dL (70-99) 111 mg/dL (70-99) Calcium Level 9.4 mg/dL (8.5-10.1) 9.0 mg/dL (8.5-10.1) Total Bilirubin 0.5 mg/dL (0.2-1.0) 0.4 mg/dL (0.2-1.0) Direct Bilirubin 0.1 mg/dL (0.0-0.2) Aspartate Amino Transf (AST/SGOT) 17 U/L (15-37) 16 U/L (15-37) Alanine Aminotransferase (ALT/SGPT) 9 U/L (14-59) 11 U/L (14-59) Alkaline Phosphatase 102 U/L (46-116) 93 U/L (46-116) Troponin I Quantitative 0.031 ng/mL (0.000-0.055) Total Protein 7.9 g/dL (6.4-8.2) 7.9 g/dL (6.4-8.2) Albumin 3.5 g/dL (3.4-5.0) 3.5 g/dL (3.4-5.0) Lipase 451 U/L (73-393) Lactic Acid Level 1.2 mmol/L (0.4-2.0) Glucose (Fingerstick) 107 mg/dL (70-99) BUN/Creatinine Ratio 5 (6-20) Albumin/Globulin Ratio 0.8 (1.0-1.7) Test 04/18/17 08:04 Glucose (Fingerstick) 118 mg/dL (70-99) Plan Plan 1.vomiting 2. hypertensive urgency 3. ESRD HD 3times weekly 4. chills without fever 5. diastolic CHF EF normal not acute 6. GERD 7. glaucoma 8. moderate weakness and debility 9. moderate chronic weakness and debility 10. thrombocytopenia PLAN: vomiting CT abdomen/pelvis wo contrast ordered GI consulted Lipase 451 chills w/o fever <1 week AV fistula, +temporary dialysis cath h/o PSA line obtain BC x 2 CXR negative (h/o PSA pneumonia) LA level negative anemia/thrombocytopenia Admit HGb 10.2 04/18 10.3 Plt 146 134 monitor hypertensive urgency restart home meds-adjust as needed hydralazine 10mg IV x 2 given since admit DVT/GI prophylaxis SCD/BIRGIT For more details regarding further plans, please refer to the orders. JORGE IGLESIAS MD 04/18/17 0853: HISTORY AND PHYSICAL Plan Plan Acute pancreatitis. Recent sepsis.Repeat blood c/s. The patient was seen and examined by me. Chart reviewed and plan of care formulated. Discussed with, reviewed and agree with GRADALL OPERATOR's notes, plan of care and orders with modifications as necessary. For more details regarding further plans, please refer to the orders. JUAN PABLO CASTORENA APRN Apr 18, 2017 08:27 JORGE IGLESIAS MD Apr 18, 2017 08:53
--- NOTE | 2017-04-18 08:30 | DISCH ---
DISCHARGE INSTRUCTIONS Condition on Discharge Condition on Discharge: Stable Activity After Discharge Activity Instructions for Disc: Activity as tolerated Diet after Discharge Diet after Discharge: Cardiac Wound Incision Care Wound Care Equipment: Dressings (Keep dressing dry ) Contacting the DRCelso after DC Call your doctor for: Concerns you may have Follow-Up Follow up with: Dr. Bunch in 3-5 days Follow Up With: Continue with hemodialysis TTS JUAN PABLO CASTORENA APRN Apr 18, 2017 08:30
--- NOTE | 2017-04-18 08:31 | EKG ---
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
[2017-04-18] MEDS ORDERED: CIPROFLOXACIN HCL 250 MG TABLET. PO SCH (09:00)
[2017-04-18] MEDS: PANTOPRAZOLE 40 MG TABLET.DR. PO SCH (10:10)
[2017-04-18] MEDS: LISINOPRIL 40 MG TABLET. PO SCH ×2 (10:11→20:30)
[2017-04-18] MEDS: CARVEDILOL 12.5 MG TABLET. PO SCH ×2 (10:11→17:15)
[2017-04-18] MEDS: hydrALAZINE 20 MG/ML VIAL. IVP PRN ×2 (10:12→23:35)
[2017-04-18] MEDS: FOLIC/VIT B COMP W-C (RENAL) TABLET. PO SCH (12:23)
[2017-04-18] MEDS: CINACALCET HCL 30 MG TABLET PO SCH (12:23)
[2017-04-18] MEDS: amLODIPine BESYLATE 10 MG TABLET PO SCH (12:24)
[2017-04-18] MEDS: FLUTICASONE 50MCG/NASAL SPRAY 16GM BOTTLE. NS SCH (12:24)
--- NOTE | 2017-04-18 14:35 | PDOC2 ---
GI CONSULT Date Date/Time DATE: 04/18/17 TIME: 14:27 Providers Attending Physician Yasir Bunch MD Referring Physician Consulting Physician Dr. Tompkins History of Present Illness HPI 71 yo female with ESRD and dialysis- history of GERD controlled on meds- denies chronic dyspepsia or nausea- new onset nausea and vomiting this week- without PAIN fever etc. No one else ill, no new meds or diet. Recently here for dialysis cath issues but no obvious relationship. NO bleeding, constipation, diarrhea, dysphagia etc History Past Medical History ESRD- dialysis, HTN, GERD, hyperpararthyroidism, depression, anemia, CHF Past Surgical History: Cataract Removal, Total knee replacement, Other (AV fistula) Review of Systems Gastrointestinal: Yes: nausea, vomiting Allergies Allergies Allergies Coded Allergies Type Severity Reaction Last Updated Verified chlorhexidine Allergy Intermediate Rash 06/03/16 Yes Opioids - Morphine Analogues Adverse Reaction Intermediate Nausea and Vomiting 06/03/16 Yes Opioids-Meperidine and Related Adverse Reaction Intermediate Nausea and Vomiting 06/03/16 Yes Opioids-Methadone and Related Adverse Reaction Intermediate Nausea and Vomiting 06/03/16 Yes codeine Adverse Reaction Intermediate Nausea and Vomiting 06/03/16 Yes Medications Medications Current Medications Ondansetron HCl (Zofran) 4 mg 1X ONCE IV Last administered on 04/17/17 16:45 ; Start 04/17/17 at 16:45; Stop 04/17/17 at 16:46; Status DC Ondansetron HCl (Zofran) 4 mg PRN Q8HRS PRN IV NAUSEA/VOMITING Last administered on 04/17/17 17:26; Start 04/17/17 at 17:15; Stop 04/17/17 at 22:44 ; Status DC Hydralazine HCl (Apresoline) 10 mg PRN Q4HRS PRN IVP ELEVATED BP, SEE COMMENTS Last administered on 04/18/17 10:12; Start 04/17/17 at 18:15 Amlodipine Besylate (Norvasc) 10 mg DAILY PO Last administered on 04/18/17 12: 24; Start 04/18/17 at 09:00 Cinacalcet (Sensipar) 30 mg DAILYWLUN PO Last administered on 04/18/17 12:23; Start 04/18/17 at 12:00 Ciprofloxacin (Cipro) 500 mg DAILY PO ; Start 04/18/17 at 09:00; Stop 04/18/17 at 09:00; Status DC Clonidine HCl (Catapres) 0.1 mg PRN Q2HR PRN PO HYPERTENSION, SEE COMMENTS Last administered on 04/18/17 02:59; Start 04/17/17 at 19:45 Vitamin B Complex/ Vitamin C (Evelyn-Elsa) 1 tab DAILY PO Last administered on 12:23; Start 04/18/17 at 09:00 Latanoprost (Xalatan) 1 drop QHS OU Last administered on 04/17/17 20:31; Start 04/17/17 at 21:00 Lisinopril (Prinivil) 40 mg BID PO Last administered on 04/18/17 10:11; Start 04/17/17 at 21:00 Pantoprazole Sodium (Protonix) 40 mg DAILY07 PO ; Start 04/18/17 at 07:00; Stop 04/18/17 at 07:00; Status DC Sevelamer Carbonate (Renvela) 800 mg TIDWMEALS PO Last administered on 12:23; Start 04/17/17 at 20:00 Sucralfate (Carafate) 1 gm TIDAC PO Last administered on 04/18/17 12:24; Start 04/18/17 at 07:30 Zolpidem Tartrate (Ambien) 5 mg PRN QHS PRN PO INSOMNIA Last administered on 22:08; Start 04/17/17 at 19:45 Carvedilol (Coreg) 12.5 mg BIDWMEALS PO Last administered on 04/18/17 10:11; Start 04/17/17 at 20:00 Pantoprazole Sodium (Protonix) 40 mg DAILYAC PO ; Start 04/18/17 at 07:30; Stop 04/18/17 at 07:30; Status DC Fluticasone Propionate (Flonase) 2 spray DAILY NS Last administered on 12:24; Start 04/18/17 at 09:00 Fentanyl Citrate (Fentanyl 2ml Vial) 25 mcg PRN Q3HRS PRN IV PAIN; Start at 19:45 Acetaminophen (Tylenol) 650 mg PRN Q6HRS PRN PO PAIN Last administered on 02:59; Start 04/17/17 at 19:45 Pantoprazole Sodium (Protonix) 40 mg DAILYAC PO Last administered on 04/18/17 10:10; Start 04/17/17 at 22:00 Ondansetron HCl (Zofran) 4 mg PRN Q6HRS PRN IV NAUSEA/VOMITING Last administered on 04/18/17 08:04; Start 04/17/17 at 22:45; Stop 04/18/17 at 08:13 ; Status DC Sodium Chloride 1,000 ml @ 1,000 mls/hr Q1H PRN IV hypotension; Start 04/18/17 at 07:40; Stop 04/18/17 at 08:13; Status DC Diphenhydramine HCl (Benadryl) 25 mg 1X PRN PRN IV ITCHING; Start 04/18/17 at 07:45; Stop 04/19/17 at 07:44 Diphenhydramine HCl (Benadryl) 25 mg 1X PRN PRN IV ITCHING; Start 04/18/17 at 07:45; Stop 04/19/17 at 07:44 Sodium Chloride (Normal Saline Flush) 10 ml 1X PRN PRN IV AP catheter pack; Start 04/18/17 at 07:45; Stop 04/18/17 at 08:13; Status DC Sodium Chloride (Normal Saline Flush) 10 ml 1X PRN PRN IV CAD PROGRAMMER catheter pack; Start 04/18/17 at 07:45; Stop 04/18/17 at 08:13; Status DC Sodium Chloride 1,000 ml @ 400 mls/hr Q2H30M PRN IV PATENCY; Start 04/18/17 at 07:40; Stop 04/18/17 at 08:13; Status DC Info (PHARMACY MONITORING -- do not chart) 1 each PRN DAILY PRN MC SEE COMMENTS ; Start 04/18/17 at 07:45 Sodium Chloride (Normal Saline Flush) 10 ml 1X PRN PRN IV AP catheter pack; Start 04/18/17 at 08:15 Ondansetron HCl (Zofran) 4 mg PRN Q8HRS PRN IV NAUSEA/VOMITING; Start 04/18/17 at 22:45 Active Scripts Active Zofran (Ondansetron Hcl) 4 Mg Tablet 1 Tab PO Q6HRS Reported Nexium Capsule (Esomeprazole Magnesium) 20 Mg Capsule.dr 1 Cap PO DAILY Zolpidem Tartrate 5 Mg Tablet 5 Mg PO PRN QHS PRN Lisinopril 40 Mg Tablet 1 Tab PO BID Latanoprost 2.5 Ml Drops 1 Drop EACHEYE QHS Pantoprazole Sodium 40 Mg Tablet.dr 40 Mg PO DAILY Sensipar (Cinacalcet Hcl) 30 Mg Tablet 30 Mg PO DAILYWLUN Renvela (Sevelamer Carbonate) 800 Mg Tablet 800 Mg PO TIDWMEALS Nephro-Elsa Tablet (Folic Acid/Vitamin B Comp W-C) 0.8 Mg Tablet 1 Tab PO DAILY Nasonex (Mometasone Furoate) 17 Gm [place].pump 2 Sprays NS DAILY Clonidine Hcl 0.1 Mg Tablet 0.1 Mg PO PRN Q2HR PRN Carvedilol 25 Mg Tablet 12.5 Mg PO BIDWMEALS Carafate (Sucralfate) 1 Gm Tablet 1 Gm PO TIDAC Amlodipine Besylate 10 Mg Tablet 10 Mg PO DAILY Physical Exam Physical Exam VSS chest -clear cor- RRR abd soft NON tender no mass good bowel sounds extrem no CCE neuro- non focal Labs Labs Laboratory Tests Test 04/17/17 15:40 04/17/17 16:30 04/17/17 20:55 04/18/17 06:15 White Blood Count 5.5 x10^3/uL (4.0-11.0) 6.5 x10^3/uL (4.0-11.0) Red Blood Count 3.40 x10^6/uL (3.50-5.40) 3.48 x10^6/uL (3.50-5.40) Hemoglobin 10.2 g/dL (12.0-15.5) 10.3 g/dL (12.0-15.5) Hematocrit 29.5 % (36.0-47.0) 30.6 % (36.0-47.0) Mean Corpuscular Volume 87 fL (79-100) 88 fL (79-100) Mean Corpuscular Hemoglobin 30 pg (25-35) 30 pg (25-35) Mean Corpuscular Hemoglobin Concent 35 g/dL (31-37) 34 g/dL (31-37) Red Cell Distribution Width 16.2 % (11.5-14.5) 15.8 % (11.5-14.5) Platelet Count 146 x10^3/uL (140-400) 134 x10^3/uL (140-400) Neutrophils (%) (Auto) 61 % (31-73) 70 % (31-73) Lymphocytes (%) (Auto) 30 % (24-48) 20 % (24-48) Monocytes (%) (Auto) 7 % (0-9) 8 % (0-9) Eosinophils (%) (Auto) 1 % (0-3) 2 % (0-3) Basophils (%) (Auto) 1 % (0-3) 1 % (0-3) Neutrophils # (Auto) 3.3 x10^3uL (1.8-7.7) 4.5 x10^3uL (1.8-7.7) Lymphocytes # (Auto) 1.6 x10^3/uL (1.0-4.8) 1.3 x10^3/uL (1.0-4.8) Monocytes # (Auto) 0.4 x10^3/uL (0.0-1.1) 0.5 x10^3/uL (0.0-1.1) Eosinophils # (Auto) 0.1 x10^3/uL (0.0-0.7) 0.1 x10^3/uL (0.0-0.7) Basophils # (Auto) 0.0 x10^3/uL (0.0-0.2) 0.0 x10^3/uL (0.0-0.2) Sodium Level 139 mmol/L (136-145) 141 mmol/L (136-145) Potassium Level 4.2 mmol/L (3.5-5.1) 4.0 mmol/L (3.5-5.1) Chloride Level 97 mmol/L (98-107) 98 mmol/L (98-107) Carbon Dioxide Level 29 mmol/L (21-32) 32 mmol/L (21-32) Anion Gap 13 (6-14) 11 (6-14) Blood Urea Nitrogen 41 mg/dL (7-20) 49 mg/dL (7-20) Creatinine 8.6 mg/dL (0.6-1.0) 10.5 mg/dL (0.6-1.0) Estimated GFR (Cockcroft-Gault) 5.6 4.4 Glucose Level 121 mg/dL (70-99) 111 mg/dL (70-99) Calcium Level 9.4 mg/dL (8.5-10.1) 9.0 mg/dL (8.5-10.1) Total Bilirubin 0.5 mg/dL (0.2-1.0) 0.4 mg/dL (0.2-1.0) Direct Bilirubin 0.1 mg/dL (0.0-0.2) Aspartate Amino Transf (AST/SGOT) 17 U/L (15-37) 16 U/L (15-37) Alanine Aminotransferase (ALT/SGPT) 9 U/L (14-59) 11 U/L (14-59) Alkaline Phosphatase 102 U/L (46-116) 93 U/L (46-116) Troponin I Quantitative 0.031 ng/mL (0.000-0.055) Total Protein 7.9 g/dL (6.4-8.2) 7.9 g/dL (6.4-8.2) Albumin 3.5 g/dL (3.4-5.0) 3.5 g/dL (3.4-5.0) Lipase 451 U/L (73-393) Lactic Acid Level 1.2 mmol/L (0.4-2.0) Glucose (Fingerstick) 107 mg/dL (70-99) BUN/Creatinine Ratio 5 (6-20) Albumin/Globulin Ratio 0.8 (1.0-1.7) Test 04/18/17 08:04 04/18/17 12:12 Glucose (Fingerstick) 118 mg/dL (70-99) 114 mg/dL (70-99) Assessment Assessment New nausea and vomiting- no clear cause- lipase is very mildly elevated, nearly the same as last month- but cant discount possibility of mild pancreatitis- prior CT negative but last year ? density in gallbladder mentioned - coudl be stone but she was not aware. No prior EGD. But did have colonoscopy several years ago Mild elevation of lipase- borderline- likely non specific Problems: Plan Plan ABD US repeat labs continue CLD and PPI therapy consider EGD later if symptoms persist Thank you for allowing us to participate in the care of your patient. We will continue to follow the patient with you and provide an appropriate recommendation as it becomes available. MAXINE TOMPKINS MD Apr 18, 2017 14:34
[2017-04-18] MEDS: LATANOPROST 0.005% OPHTH SOLUTION 2.5ML BOTTLE. OU SCH (20:30)
[2017-04-18] MEDS: ZOLPIDEM 5 MG TABLET. PO PRN (20:31)
--- NOTE | 2017-04-18 21:29 | CONS ---
DATE OF CONSULTATION: REQUESTING PHYSICIAN: Hospitalist. REASON FOR CONSULTATION: Renal failure. HISTORY OF PRESENT ILLNESS: A 71-year-old female with end-stage renal disease, hemodialysis dependent, on a Thursday, , and Thursday schedule. The patient is currently admitted with nausea and vomiting. On presentation, she was quite hypertensive, as well, her laboratories were consistent with pancreatitis. She is admitted for evaluation and management of the same. PAST MEDICAL HISTORY: Hypertension, end-stage renal disease - hemodialysis-dependent, CVA, cataract extraction, total knee replacement, AV fistula, temporary dialysis catheters, right breast biopsy negative, and carpal tunnel surgery. ALLERGIES: MORPHINE, OPIOIDS, MEPERIDINE, METHADONE, CHLORHEXIDINE, AND CODEINE. MEDICATIONS: Reviewed ____. FAMILY HISTORY: Noncontributory for renal disease. SOCIAL HISTORY: The patient is a nonsmoker, nondrinker. Resides with assistance. REVIEW OF SYSTEMS: No headaches, sinus problem, nasal drainage, epistaxis, or change in vision or hearing. No difficulty swallowing. No fever, chills, cough, sputum production, or hemoptysis. No chest pain, shortness of breath, PND, orthopnea, or dyspnea on exertion. She has had nausea and vomiting. No abdominal pain. No upper or lower gastrointestinal blood loss. She has had nausea and vomiting. No seizures or malignancies. PHYSICAL EXAMINATION: GENERAL: The patient is awake, conversant, and appropriate. HEAD, EYES, EARS, NOSE, AND THROAT: Clear. NECK: No increased JVD. No thyromegaly, mass, or adenopathy. LUNGS: Clear. CARDIAC: Without S3 or rub. ABDOMEN: Bowel sounds are present, nontender. EXTREMITIES: Without edema. NEUROLOGIC: Nonfocal, localizing. PSYCHIATRIC: Good attention to detail, appropriate affect. LABORATORY DATA: White count is 6.5, hemoglobin 10.2, and hematocrit 30.6. Potassium 4, CO2 32, and creatinine 10.5. Lipase 451. IMPRESSION: 1. End-stage renal disease secondary to hypertensive nephrosclerosis. 2. Accelerated hypertension, likely precipitated by pain, currently improved. 3. Nausea and vomiting, improved, possible pancreatitis. RECOMMENDATIONS: 1. Ongoing dialysis on Thursday, , and Thursday. 2. GI evaluation ____. 3. Antiemetics as needed. STEFAN REAL MD DR: Dariusz JOB#: [id number] / [id number]
[2017-04-19 02:47] VITALS: BP 155/78
[2017-04-19 06:45] LABS: BASO % 1 % (0-3); EOS % 6 % (0-3); HEMATOCRIT 29.5 % (36.0-47.0); LYMPH # 1.3 x10^3/uL (1.0-4.8); LYMPH % 24 % (24-48); MEAN CORPUSCULAR HEMOGLOBIN 30 pg (25-35); MEAN CORPUSCULAR HGB CONC 34 g/dL (31-37); MEAN CORPUSCULAR VOLUME 89 fL (79-100); MONO % 9 % (0-9); NEUT % 60 % (31-73); PLATELET COUNT 120 x10^3/uL (140-400); RED BLOOD COUNT 3.32 x10^6/uL (3.50-5.40); RED CELL DISTRIBUTION WIDTH 15.9 % (11.5-14.5); WHITE BLOOD COUNT 5.5 x10^3/uL (4.0-11.0)
[2017-04-19 07:00] VITALS: BP 149/83
[2017-04-19 07:13] LABS: ALBUMIN 3.4 g/dL (3.4-5.0); ALBUMIN/GLOBULIN RATIO 0.9 (1.0-1.7); CALCIUM 9.5 mg/dL (8.5-10.1); DIRECT BILIRUBIN 0.2 mg/dL (0.0-0.2); GFR 8.4; POTASSIUM 4.2 mmol/L (3.5-5.1); TOTAL BILIRUBIN 0.5 mg/dL (0.2-1.0); TOTAL PROTEIN 7.4 g/dL (6.4-8.2)
[2017-04-19] MEDS: ONDANSETRON PF 4 MG/2 ML VIAL. IV PRN (08:11)
[2017-04-19] MEDS: FOLIC/VIT B COMP W-C (RENAL) TABLET. PO SCH (08:11)
[2017-04-19] MEDS: FLUTICASONE 50MCG/NASAL SPRAY 16GM BOTTLE. NS SCH (08:11)
[2017-04-19] MEDS: SUCRALFATE 1 GM TABLET. PO SCH ×3 (08:11→17:15)
[2017-04-19] MEDS: SEVELAMER CARBONATE 800 MG TABLET. PO SCH ×3 (08:11→17:15)
[2017-04-19] MEDS: PANTOPRAZOLE 40 MG TABLET.DR. PO SCH ×2 (08:12→11:56)
[2017-04-19] MEDS: LISINOPRIL 40 MG TABLET. PO SCH ×2 (08:12→21:27)
[2017-04-19] MEDS: amLODIPine BESYLATE 10 MG TABLET PO SCH (08:13)
[2017-04-19] MEDS: CARVEDILOL 12.5 MG TABLET. PO SCH ×2 (08:13→17:15)
--- NOTE | 2017-04-19 09:24 | RAD ---
Complete abdomen ultrasound study History: Nausea. Elevated lipase. Comparison: CT study performed same day. Findings: The tail of the pancreas is obscured due to overlying bowel gas. The rest the pancreas is homogeneous without focal enlargement. There is dilatation of the main pancreatic duct measures 4 mm. Intrahepatic portion of the IVC is unremarkable. The mid and distal abdominal aorta are obscured due to overlying bowel gas. The proximal abdominal aorta is visualized and measures 18 mm in AP dimension. No focal hepatic mass is seen. The liver measures 18.8 cm in length which is mildly enlarged. The gallbladder is normal by sonography but small radiopaque stones or biliary sludge can be visualized on the CT study performed today. The extra hepatic bile measures 5 mm in caliber which is normal. Both kidneys are echogenic consistent with chronic renal disease. The length of the right kidney is 7.9 cm in length of the left kidney is 9.6 cm. Therefore, right renal atrophy is evident. Bilateral renal cysts are seen. There is a partially calcified mass seen within the central aspect of the right kidney on the CT study which is difficult to see by sonography due to partial shadowing from the calcification. No hydronephrosis is seen on either side. The spleen measures 9.8 cm in length which is normal. No ascites is seen. IMPRESSION: The gallbladder appears normal by sonography but small radiopaque stones or biliary sludge can be seen on the CT study performed today. Mild dilatation of the main pancreatic duct measuring 4 mm. Mild hepatomegaly. Bilateral echogenic kidneys consistent with chronic renal disease. Bilateral renal cysts. The calcified mass seen by CT is not visualized sonographically.
--- NOTE | 2017-04-19 09:50 | RAD ---
CT study of the abdomen and pelvis without contrast History: Vomiting. Elevated lipase. Comparison: February 11, 2017 and February 26, 2016. Technique: Noncontrast helical CT scan abdomen and pelvis was performed. Without contrast, the sensitivity to detect organ pathology and GI tract pathology is decreased. PQRS Compliance Statement: One or more of the following individualized dose reduction techniques were utilized for this examination: 1. Automated exposure control 2. Adjustment of the mA and/or kV according to patient size 3. Use of iterative reconstruction technique Findings: The liver and spleen and pancreas are homogeneous in appearance on this noncontrast study. No peripancreatic inflammatory change or free fluid is evident. Small radiopaque gallstones or biliary sludge are seen within the gallbladder. No extrahepatic biliary ductal dilatation is seen. No adrenal mass is evident. Bilateral renal cysts are seen. There is atrophy of both kidneys. There is a central right renal mass lesion with peripheral calcification which has not changed significantly from the prior study dated February 26, 2016. It measures approximately 3.5 cm in greatest dimension. No hydronephrosis is seen on either side. Urinary bladder is not distended. There is a large calcified mass of the uterus measuring almost 10 cm consistent with a fibroid. No focal aneurysmal dilatation of the abdominal aorta is seen. No bulky enlarged abdominal or pelvic lymphadenopathy is seen. No obstructive bowel pattern is evident. Colonic diverticulosis is seen without diverticulitis. The appendix is normal. No free air or free fluid is evident. No lung base consolidation is seen. No osteolytic process is seen. IMPRESSION: No acute abnormality of the abdomen or pelvis is seen. Small radiopaque gallstones or biliary sludge within the gallbladder. No significant change in size of central right renal mass lesion with peripheral calcification. This could represent a complex renal cyst with calcification or a thrombosed renal artery aneurysm (this did not enhance on previous studies). Slow-growing neoplasm has not been excluded. Bilateral renal cysts.
--- NOTE | 2017-04-19 10:23 | PDOC ---
IM PROGRESS NOTES- Subjective Subjective still has some nausea but feeling slightly better. Objective Vitals Vital Signs Date Time Temp Pulse Resp B/P (MAP) Pulse Ox O2 Delivery O2 Flow Rate FiO2 04/19/17 08:13 79 149/83 04/19/17 02:47 97.9 18 96 Room Air 97.9 Input & Output Intake and Output 04/19/17 07:00 Intake Total 160 ml Output Total 0 ml Balance 160 ml Intake Oral 160 ml Output Urine Total 0 ml Physical Exam Physical Exam General appearance - alert,well appearing, and in no distress and oriented to person, place, and time Mental Status - alert, oriented to person, place, and time, affect appropriate to mood Head - normal Chest - clear to auscultation, no wheezes, rales or rhonchi, symmetric air entry Heart - S1 and S2 normal Abdomen - soft, nontender, nondistended, no masses or organomegaly Neurological - alert and oriented Musculoskeletal - no muscular tenderness noted Extremities - trace pedal edema Skin - warm and dry Labs Laboratory Tests Test 04/17/17 15:40 04/17/17 16:30 04/17/17 20:55 04/18/17 06:15 White Blood Count 5.5 x10^3/uL (4.0-11.0) 6.5 x10^3/uL (4.0-11.0) Red Blood Count 3.40 x10^6/uL (3.50-5.40) 3.48 x10^6/uL (3.50-5.40) Hemoglobin 10.2 g/dL (12.0-15.5) 10.3 g/dL (12.0-15.5) Hematocrit 29.5 % (36.0-47.0) 30.6 % (36.0-47.0) Mean Corpuscular Volume 87 fL (79-100) 88 fL (79-100) Mean Corpuscular Hemoglobin 30 pg (25-35) 30 pg (25-35) Mean Corpuscular Hemoglobin Concent 35 g/dL (31-37) 34 g/dL (31-37) Red Cell Distribution Width 16.2 % (11.5-14.5) 15.8 % (11.5-14.5) Platelet Count 146 x10^3/uL (140-400) 134 x10^3/uL (140-400) Neutrophils (%) (Auto) 61 % (31-73) 70 % (31-73) Lymphocytes (%) (Auto) 30 % (24-48) 20 % (24-48) Monocytes (%) (Auto) 7 % (0-9) 8 % (0-9) Eosinophils (%) (Auto) 1 % (0-3) 2 % (0-3) Basophils (%) (Auto) 1 % (0-3) 1 % (0-3) Neutrophils # (Auto) 3.3 x10^3uL (1.8-7.7) 4.5 x10^3uL (1.8-7.7) Lymphocytes # (Auto) 1.6 x10^3/uL (1.0-4.8) 1.3 x10^3/uL (1.0-4.8) Monocytes # (Auto) 0.4 x10^3/uL (0.0-1.1) 0.5 x10^3/uL (0.0-1.1) Eosinophils # (Auto) 0.1 x10^3/uL (0.0-0.7) 0.1 x10^3/uL (0.0-0.7) Basophils # (Auto) 0.0 x10^3/uL (0.0-0.2) 0.0 x10^3/uL (0.0-0.2) Sodium Level 139 mmol/L (136-145) 141 mmol/L (136-145) Potassium Level 4.2 mmol/L (3.5-5.1) 4.0 mmol/L (3.5-5.1) Chloride Level 97 mmol/L (98-107) 98 mmol/L (98-107) Carbon Dioxide Level 29 mmol/L (21-32) 32 mmol/L (21-32) Anion Gap 13 (6-14) 11 (6-14) Blood Urea Nitrogen 41 mg/dL (7-20) 49 mg/dL (7-20) Creatinine 8.6 mg/dL (0.6-1.0) 10.5 mg/dL (0.6-1.0) Estimated GFR (Cockcroft-Gault) 5.6 4.4 Glucose Level 121 mg/dL (70-99) 111 mg/dL (70-99) Calcium Level 9.4 mg/dL (8.5-10.1) 9.0 mg/dL (8.5-10.1) Total Bilirubin 0.5 mg/dL (0.2-1.0) 0.4 mg/dL (0.2-1.0) Direct Bilirubin 0.1 mg/dL (0.0-0.2) Aspartate Amino Transf (AST/SGOT) 17 U/L (15-37) 16 U/L (15-37) Alanine Aminotransferase (ALT/SGPT) 9 U/L (14-59) 11 U/L (14-59) Alkaline Phosphatase 102 U/L (46-116) 93 U/L (46-116) Troponin I Quantitative 0.031 ng/mL (0.000-0.055) Total Protein 7.9 g/dL (6.4-8.2) 7.9 g/dL (6.4-8.2) Albumin 3.5 g/dL (3.4-5.0) 3.5 g/dL (3.4-5.0) Lipase 451 U/L (73-393) Lactic Acid Level 1.2 mmol/L (0.4-2.0) Glucose (Fingerstick) 107 mg/dL (70-99) BUN/Creatinine Ratio 5 (6-20) Albumin/Globulin Ratio 0.8 (1.0-1.7) Test 04/18/17 08:04 04/18/17 12:12 04/18/17 16:51 04/18/17 20:34 Glucose (Fingerstick) 118 mg/dL (70-99) 114 mg/dL (70-99) 97 mg/dL (70-99) 119 mg/dL (70-99) Test 04/19/17 05:40 04/19/17 07:50 White Blood Count 5.5 x10^3/uL (4.0-11.0) Red Blood Count 3.32 x10^6/uL (3.50-5.40) Hemoglobin 10.0 g/dL (12.0-15.5) Hematocrit 29.5 % (36.0-47.0) Mean Corpuscular Volume 89 fL (79-100) Mean Corpuscular Hemoglobin 30 pg (25-35) Mean Corpuscular Hemoglobin Concent 34 g/dL (31-37) Red Cell Distribution Width 15.9 % (11.5-14.5) Platelet Count 120 x10^3/uL (140-400) Neutrophils (%) (Auto) 60 % (31-73) Lymphocytes (%) (Auto) 24 % (24-48) Monocytes (%) (Auto) 9 % (0-9) Eosinophils (%) (Auto) 6 % (0-3) Basophils (%) (Auto) 1 % (0-3) Neutrophils # (Auto) 3.3 x10^3uL (1.8-7.7) Lymphocytes # (Auto) 1.3 x10^3/uL (1.0-4.8) Monocytes # (Auto) 0.5 x10^3/uL (0.0-1.1) Eosinophils # (Auto) 0.3 x10^3/uL (0.0-0.7) Basophils # (Auto) 0.0 x10^3/uL (0.0-0.2) Sodium Level 139 mmol/L (136-145) Potassium Level 4.2 mmol/L (3.5-5.1) Chloride Level 101 mmol/L (98-107) Carbon Dioxide Level 27 mmol/L (21-32) Anion Gap 11 (6-14) Blood Urea Nitrogen 16 mg/dL (7-20) Creatinine 6.0 mg/dL (0.6-1.0) Estimated GFR (Cockcroft-Gault) 8.4 BUN/Creatinine Ratio 3 (6-20) Glucose Level 98 mg/dL (70-99) Calcium Level 9.5 mg/dL (8.5-10.1) Total Bilirubin 0.5 mg/dL (0.2-1.0) Direct Bilirubin 0.2 mg/dL (0.0-0.2) Aspartate Amino Transf (AST/SGOT) 19 U/L (15-37) Alanine Aminotransferase (ALT/SGPT) 8 U/L (14-59) Alkaline Phosphatase 93 U/L (46-116) Total Protein 7.4 g/dL (6.4-8.2) Albumin 3.4 g/dL (3.4-5.0) Albumin/Globulin Ratio 0.9 (1.0-1.7) Lipase 281 U/L (73-393) Glucose (Fingerstick) 102 mg/dL (70-99) Laboratory Tests Test 04/18/17 12:12 04/18/17 16:51 04/18/17 20:34 04/19/17 05:40 Glucose (Fingerstick) 114 mg/dL (70-99) 97 mg/dL (70-99) 119 mg/dL (70-99) White Blood Count 5.5 x10^3/uL (4.0-11.0) Red Blood Count 3.32 x10^6/uL (3.50-5.40) Hemoglobin 10.0 g/dL (12.0-15.5) Hematocrit 29.5 % (36.0-47.0) Mean Corpuscular Volume 89 fL (79-100) Mean Corpuscular Hemoglobin 30 pg (25-35) Mean Corpuscular Hemoglobin Concent 34 g/dL (31-37) Red Cell Distribution Width 15.9 % (11.5-14.5) Platelet Count 120 x10^3/uL (140-400) Neutrophils (%) (Auto) 60 % (31-73) Lymphocytes (%) (Auto) 24 % (24-48) Monocytes (%) (Auto) 9 % (0-9) Eosinophils (%) (Auto) 6 % (0-3) Basophils (%) (Auto) 1 % (0-3) Neutrophils # (Auto) 3.3 x10^3uL (1.8-7.7) Lymphocytes # (Auto) 1.3 x10^3/uL (1.0-4.8) Monocytes # (Auto) 0.5 x10^3/uL (0.0-1.1) Eosinophils # (Auto) 0.3 x10^3/uL (0.0-0.7) Basophils # (Auto) 0.0 x10^3/uL (0.0-0.2) Sodium Level 139 mmol/L (136-145) Potassium Level 4.2 mmol/L (3.5-5.1) Chloride Level 101 mmol/L (98-107) Carbon Dioxide Level 27 mmol/L (21-32) Anion Gap 11 (6-14) Blood Urea Nitrogen 16 mg/dL (7-20) Creatinine 6.0 mg/dL (0.6-1.0) Estimated GFR (Cockcroft-Gault) 8.4 BUN/Creatinine Ratio 3 (6-20) Glucose Level 98 mg/dL (70-99) Calcium Level 9.5 mg/dL (8.5-10.1) Total Bilirubin 0.5 mg/dL (0.2-1.0) Direct Bilirubin 0.2 mg/dL (0.0-0.2) Aspartate Amino Transf (AST/SGOT) 19 U/L (15-37) Alanine Aminotransferase (ALT/SGPT) 8 U/L (14-59) Alkaline Phosphatase 93 U/L (46-116) Total Protein 7.4 g/dL (6.4-8.2) Albumin 3.4 g/dL (3.4-5.0) Albumin/Globulin Ratio 0.9 (1.0-1.7) Lipase 281 U/L (73-393) Test 04/19/17 07:50 Glucose (Fingerstick) 102 mg/dL (70-99) Meds Current Medications Cinacalcet (Sensipar) 30 mg DAILYWLUN PO Last administered on 04/18/17 12:23; Start 04/18/17 at 12:00 Ondansetron HCl (Zofran) 4 mg PRN Q8HRS PRN IV NAUSEA/VOMITING Last administered on 04/19/17 08:11; Start 04/18/17 at 17:00 Assessment Assessment 1.vomiting 2. hypertensive urgency 3. ESRD HD 3times weekly 4. chills without fever 5. diastolic CHF EF normal not acute 6. GERD 7. glaucoma 8. moderate weakness and debility 9. moderate chronic weakness and debility 10. thrombocytopenia PLAN: vomiting CT abdomen/pelvis wo contrast -no acute changes Abd sono- mild dilatation of the Pancreatic duct. GI consulted Lipase 451 slowly improving. advance diet. chills w/o fever <1 week AV fistula, +temporary dialysis cath h/o PSA line obtain BC x 2- negative so far. CXR negative (h/o PSA pneumonia) LA level negative anemia/thrombocytopenia Admit HGb 10.2 04/18 10.3 Plt 146 134 monitor hypertensive urgency restart home meds-adjust as needed hydralazine 10mg IV x 2 given since admit DVT/GI prophylaxis SCD/BIRGIT Plan Plan Acute pancreatitis. Recent sepsis.Repeat blood c/s. The patient was seen and examined by me. Chart reviewed and plan of care formulated. Discussed with, reviewed and agree with DIVER HELPER's notes, plan of care and orders with modifications as necessary. For more details regarding further plans, please refer to the orders. JORGE IGLESIAS MD Apr 19, 2017 10:23
[2017-04-19 11:00] VITALS: BP 160/64
[2017-04-19] MEDS: ACETAMINOPHEN 325 MG TABLET. PO PRN ×2 (11:55→23:23)
[2017-04-19] MEDS: CINACALCET HCL 30 MG TABLET PO SCH (11:55)
[2017-04-19 15:00] VITALS: BP 150/83
--- NOTE | 2017-04-19 16:02 | PDOC ---
GI PROGRESS NOTES Date Date/Time DATE: 04/19/17 TIME: 15:59 Subjective Subjective still feels bad but less nausea and no abd pain Objective Vitals Vital Signs Date Time Temp Pulse Resp B/P (MAP) Pulse Ox O2 Delivery O2 Flow Rate FiO2 04/19/17 11:00 98.8 62 20 160/64 (96) 97 Room Air 98.8 04/19/17 08:13 79 149/83 04/19/17 08:13 79 149/83 04/19/17 08:12 79 149/83 04/19/17 07:00 97.6 79 20 149/83 (105) 98 Nasal Cannula 97.6 04/19/17 02:47 97.9 70 18 155/78 (103) 96 Room Air 97.9 04/18/17 23:35 74 191/75 04/18/17 23:00 97.5 74 18 191/75 (113) 96 Room Air 97.5 04/18/17 20:30 54 173/71 04/18/17 19:26 Room Air 04/18/17 19:00 97.5 54 18 173/71 (105) 92 Room Air 97.5 04/18/17 17:15 69 164/77 Labs Labs Laboratory Tests Test 04/18/17 16:51 04/18/17 20:34 04/19/17 05:40 04/19/17 07:50 Glucose (Fingerstick) 97 mg/dL (70-99) 119 mg/dL (70-99) 102 mg/dL (70-99) White Blood Count 5.5 x10^3/uL (4.0-11.0) Red Blood Count 3.32 x10^6/uL (3.50-5.40) Hemoglobin 10.0 g/dL (12.0-15.5) Hematocrit 29.5 % (36.0-47.0) Mean Corpuscular Volume 89 fL (79-100) Mean Corpuscular Hemoglobin 30 pg (25-35) Mean Corpuscular Hemoglobin Concent 34 g/dL (31-37) Red Cell Distribution Width 15.9 % (11.5-14.5) Platelet Count 120 x10^3/uL (140-400) Neutrophils (%) (Auto) 60 % (31-73) Lymphocytes (%) (Auto) 24 % (24-48) Monocytes (%) (Auto) 9 % (0-9) Eosinophils (%) (Auto) 6 % (0-3) Basophils (%) (Auto) 1 % (0-3) Neutrophils # (Auto) 3.3 x10^3uL (1.8-7.7) Lymphocytes # (Auto) 1.3 x10^3/uL (1.0-4.8) Monocytes # (Auto) 0.5 x10^3/uL (0.0-1.1) Eosinophils # (Auto) 0.3 x10^3/uL (0.0-0.7) Basophils # (Auto) 0.0 x10^3/uL (0.0-0.2) Sodium Level 139 mmol/L (136-145) Potassium Level 4.2 mmol/L (3.5-5.1) Chloride Level 101 mmol/L (98-107) Carbon Dioxide Level 27 mmol/L (21-32) Anion Gap 11 (6-14) Blood Urea Nitrogen 16 mg/dL (7-20) Creatinine 6.0 mg/dL (0.6-1.0) Estimated GFR (Cockcroft-Gault) 8.4 BUN/Creatinine Ratio 3 (6-20) Glucose Level 98 mg/dL (70-99) Calcium Level 9.5 mg/dL (8.5-10.1) Total Bilirubin 0.5 mg/dL (0.2-1.0) Direct Bilirubin 0.2 mg/dL (0.0-0.2) Aspartate Amino Transf (AST/SGOT) 19 U/L (15-37) Alanine Aminotransferase (ALT/SGPT) 8 U/L (14-59) Alkaline Phosphatase 93 U/L (46-116) Total Protein 7.4 g/dL (6.4-8.2) Albumin 3.4 g/dL (3.4-5.0) Albumin/Globulin Ratio 0.9 (1.0-1.7) Lipase 281 U/L (73-393) Test 04/19/17 11:55 Glucose (Fingerstick) 96 mg/dL (70-99) Physical Exam Physical Exam VSS chest -clear cor- RRR abd soft NON tender no mass good bowel sounds extrem no CCE neuro- non focal Assessment Assessment Nausea- improving but not resolved- lipase only mildly elevated on admission now normal. Imaging and history do not suggest pancreatitis - but cause is not clear- with her chronic medical issues and dialysis , she is at risk for gastritis or PUD Problems: Plan Plan Plan- continue treatment and observation consider EGD in a few days if symptoms persist MAXINE TOMPKINS MD Apr 19, 2017 16:02
[2017-04-19 19:00] VITALS: BP 166/71
[2017-04-19] MEDS: ZOLPIDEM 5 MG TABLET. PO PRN (21:27)
[2017-04-19] MEDS: LATANOPROST 0.005% OPHTH SOLUTION 2.5ML BOTTLE. OU SCH (21:27)
[2017-04-19 23:00] VITALS: BP 152/75
[2017-04-20 03:13] VITALS: BP 159/55
[2017-04-20 05:01] LABS: BASO % 1 % (0-3); EOS % 8 % (0-3); HEMATOCRIT 28.5 % (36.0-47.0); HEMOGLOBIN 9.5 g/dL (12.0-15.5); LYMPH # 1.9 x10^3/uL (1.0-4.8); LYMPH % 31 % (24-48); MEAN CORPUSCULAR HEMOGLOBIN 30 pg (25-35); MEAN CORPUSCULAR HGB CONC 33 g/dL (31-37); MEAN CORPUSCULAR VOLUME 91 fL (79-100); MONO % 9 % (0-9); NEUT % 52 % (31-73); PLATELET COUNT 109 x10^3/uL (140-400); RED BLOOD COUNT 3.14 x10^6/uL (3.50-5.40); RED CELL DISTRIBUTION WIDTH 15.3 % (11.5-14.5); WHITE BLOOD COUNT 6.1 x10^3/uL (4.0-11.0)
[2017-04-20 05:54] LABS: ALBUMIN 3.2 g/dL (3.4-5.0); ALBUMIN/GLOBULIN RATIO 0.8 (1.0-1.7); CALCIUM 8.7 mg/dL (8.5-10.1); POTASSIUM 4.1 mmol/L (3.5-5.1); TOTAL BILIRUBIN 0.4 mg/dL (0.2-1.0); TOTAL PROTEIN 7.4 g/dL (6.4-8.2)
[2017-04-20 07:15] VITALS: BP 183/76
[2017-04-20] MEDS: ONDANSETRON PF 4 MG/2 ML VIAL. IV PRN ×2 (07:37→18:35)
[2017-04-20] MEDS: SUCRALFATE 1 GM TABLET. PO SCH ×3 (07:37→18:35)
[2017-04-20] MEDS: PANTOPRAZOLE 40 MG TABLET.DR. PO SCH (07:37)
[2017-04-20] MEDS: FOLIC/VIT B COMP W-C (RENAL) TABLET. PO SCH (08:28)
[2017-04-20] MEDS: SEVELAMER CARBONATE 800 MG TABLET. PO SCH ×3 (08:29→18:35)
[2017-04-20] MEDS: LISINOPRIL 40 MG TABLET. PO SCH ×2 (08:29→20:56)
[2017-04-20] MEDS: CARVEDILOL 12.5 MG TABLET. PO SCH ×2 (08:29→18:36)
[2017-04-20] MEDS: amLODIPine BESYLATE 10 MG TABLET PO SCH (08:29)
[2017-04-20] MEDS: FLUTICASONE 50MCG/NASAL SPRAY 16GM BOTTLE. NS SCH (08:29)
--- NOTE | 2017-04-20 09:28 | PDOC ---
PROGRESS NOTES Subjective Subjective feeling better ,no nausea or vomiting Objective Objective Vital Signs Date Time Temp Pulse Resp B/P (MAP) Pulse Ox O2 Delivery O2 Flow Rate FiO2 04/20/17 08:29 53 183/76 04/20/17 07:30 Room Air 04/20/17 07:15 97.9 18 98 97.9 Intake and Output 04/20/17 07:00 Intake Total 740 ml Balance 740 ml Intake Oral 740 ml Physical Exam Abdomen: Normal bowel sounds, Soft Heart: Regular rate, Normal S1, Normal S2 Extremities: No clubbing General: Alert HEENT: Atraumatic Lungs: Clear to auscultation MUSCULOSKELETAL: No deformity, No swelling Neck: Supple Neuro: Normal speech Psych/Mental Status: Mental status NL Skin: No breakdown Diagnosis Problem List Problems Medical Problems: (1) R11.0 Status: Acute Assessment Assessment 1.Pancreatitis,Gall stones . 2. hypertensive urgency 3. ESRD HD 3times weekly 4. chills without fever 5. diastolic CHF EF normal not acute 6. GERD 7. glaucoma 8. moderate weakness and debility 9. moderate chronic weakness and debility 10. thrombocytopenia PLAN: vomiting improved CT abdomen/pelvis wo contrast -small gal stones, stable renal mass rt kidney 3, 6 cm from 2010, uterine fibroid+ Abd sono- neg Lipase 451 normal now slowly improving. advance diet. chills w/o fever <1 week AV fistula, + dialysis cath h/o PSA line obtain BC x 2- negative so far. CXR negative (h/o PSA pneumonia) LA level negative anemia/thrombocytopenia Admit HGb 10.2 04/18 10.3 Plt 146 134 monitor hypertensive urgency restart home meds-adjust as needed hydralazine 10mg IV x 2 given since admit DVT/GI prophylaxis SCD/BIRGIT vascular consult for AV fistula Problems: Plan Plan of Care Problems Medical Problems: (1) R11.0 Status: Acute Comment Review of Relevant I have reviewed the following items dorina (where applicable) has been applied. Labs Laboratory Tests Test 04/19/17 11:55 04/19/17 16:16 04/19/17 20:40 04/20/17 04:50 Glucose (Fingerstick) 96 mg/dL (70-99) 80 mg/dL (70-99) 93 mg/dL (70-99) White Blood Count 6.1 x10^3/uL (4.0-11.0) Red Blood Count 3.14 x10^6/uL (3.50-5.40) Hemoglobin 9.5 g/dL (12.0-15.5) Hematocrit 28.5 % (36.0-47.0) Mean Corpuscular Volume 91 fL (79-100) Mean Corpuscular Hemoglobin 30 pg (25-35) Mean Corpuscular Hemoglobin Concent 33 g/dL (31-37) Red Cell Distribution Width 15.3 % (11.5-14.5) Platelet Count 109 x10^3/uL (140-400) Neutrophils (%) (Auto) 52 % (31-73) Lymphocytes (%) (Auto) 31 % (24-48) Monocytes (%) (Auto) 9 % (0-9) Eosinophils (%) (Auto) 8 % (0-3) Basophils (%) (Auto) 1 % (0-3) Neutrophils # (Auto) 3.2 x10^3uL (1.8-7.7) Lymphocytes # (Auto) 1.9 x10^3/uL (1.0-4.8) Monocytes # (Auto) 0.5 x10^3/uL (0.0-1.1) Eosinophils # (Auto) 0.5 x10^3/uL (0.0-0.7) Basophils # (Auto) 0.0 x10^3/uL (0.0-0.2) Sodium Level 137 mmol/L (136-145) Potassium Level 4.1 mmol/L (3.5-5.1) Chloride Level 102 mmol/L (98-107) Carbon Dioxide Level 26 mmol/L (21-32) Anion Gap 9 (6-14) Blood Urea Nitrogen 26 mg/dL (7-20) Creatinine 8.0 mg/dL (0.6-1.0) Estimated GFR (Cockcroft-Gault) 6.0 BUN/Creatinine Ratio 3 (6-20) Glucose Level 97 mg/dL (70-99) Calcium Level 8.7 mg/dL (8.5-10.1) Total Bilirubin 0.4 mg/dL (0.2-1.0) Aspartate Amino Transf (AST/SGOT) 19 U/L (15-37) Alanine Aminotransferase (ALT/SGPT) 8 U/L (14-59) Alkaline Phosphatase 79 U/L (46-116) Total Protein 7.4 g/dL (6.4-8.2) Albumin 3.2 g/dL (3.4-5.0) Albumin/Globulin Ratio 0.8 (1.0-1.7) Test 04/20/17 07:19 Glucose (Fingerstick) 98 mg/dL (70-99) Microbiology 04/18/17 Blood Culture - Preliminary, Resulted NO GROWTH AFTER 2 DAYS Vitals/I & O Vital Sign - Last 24 Hours 04/19/17 04/19/17 04/19/17 04/19/17 11:00 15:00 17:15 19:00 Temp 98.8 98.5 99.0 98.8 98.5 99.0 Pulse 62 64 64 61 Resp 20 18 20 B/P (MAP) 160/64 (96) 150/83 (105) 150/83 166/71 (102) Pulse Ox 97 97 99 O2 Delivery Room Air Room Air Room Air 04/19/17 04/19/17 04/19/17 04/20/17 20:15 21:27 23:00 03:13 Temp 100.0 97.9 100.0 97.9 Pulse 61 72 68 Resp 20 20 B/P (MAP) 166/71 152/75 (100) 159/55 (89) Pulse Ox 97 98 O2 Delivery Room Air Room Air Room Air 04/20/17 04/20/17 04/20/17 04/20/17 07:15 07:30 08:29 08:29 Temp 97.9 97.9 Pulse 53 53 53 Resp 18 B/P (MAP) 183/76 (111) 183/76 183/76 Pulse Ox 98 O2 Delivery Room Air Room Air 04/20/17 08:29 Pulse 53 B/P (MAP) 183/76 Intake and Output 04/19/17 04/19/17 04/20/17 15:00 23:00 07:00 Intake Total 500 ml 240 ml Balance 500 ml 240 ml YARY FAIRCHILD MD Apr 20, 2017 09:28
[2017-04-20] MEDS ORDERED: ENOXAPARIN 30 MG/0.3 ML SYRINGE. SQ ONE (10:00)
[2017-04-20 10:30] VITALS: BP 182/72
--- NOTE | 2017-04-20 11:20 | RAD ---
Bilateral upper extremity vein mapping, 04/20/2017: History: AV fistula planning Grayscale evaluation of the basilic and cephalic veins was performed as requested. On the right, the basilic vein is patent measuring 4.3 to 6.2 mm in diameter in the upper arm. In the forearm it measures 1.9 to 2.9 mm. The right cephalic vein in the upper arm measures 1.8 to 5.3 mm. In the forearm it measure 1.4 to 2.0 mm. On the left, the basilic vein in the upper arm is patent measuring 3.8 to 7.8 mm. In the forearm it measures 2.8 mm. The left cephalic vein in the upper arm measures 2.5 to 3.0 mm. In the forearm it measures 2.3 to 3.3 mm. IMPRESSION: Patent cephalic and basilic veins bilaterally with measurements as described above and fully delineated on the technologist worksheet available in the [employer] PACS system.
--- NOTE | 2017-04-20 11:40 | PDOC ---
SUBJECTIVE ROS ESRD C/o Feeling weak and off-balance CVS: no Orthopnea, no CP RESP: no SOB, no GRACE GI: no recent Nausea or Vomiting : no Dysuria, no Urgency OBJECTIVE Vital Signs Vital Signs Date Time Temp Pulse Resp B/P (MAP) Pulse Ox O2 Delivery O2 Flow Rate FiO2 04/20/17 10:30 98.1 64 18 182/72 (108) 96 Room Air 98.1 I & 0 Intake and Output 04/20/17 07:00 Intake Total 740 ml Balance 740 ml Intake Oral 740 ml PHYSICAL EXAM Physical Exam GEN: Awake, Oriented x 3, In no distress EYES: Vision Unchanged, Conjunctiva Normal EN: No EN Drainage, Mucous Membranes moist NECK: no JVD, min JVP, Supple, no Thyromegaly CVS: S1S2, ? Murmur, No Gallop, No Rub,no Edema RESP: no Rales, no Rhonchi,no Acc. Muscle Use GI: BS + ve, NO Bruit, Non Tender, Non Distended : no CVA tenderness, no Suprapubic Tenderness DIAGNOSIS/ASSESSMENT Assessment & Plan After Review of available labs/ radiology as reported - following is my Assessment and Plan ESRD: Dialysis as below F 180 NR 3.5 Hrs 3 K 2.5 Ca 140 Na 35 HC03 Qb 350 + Qd 500+ Heparin 0 Units Uf to dry weight as tolerated May give 25-50 gms of 25% Albumin if needed to maintain Hemodynamic stability Treatment plan reviewed and discussed with replanter ANEMIA; Aranap as ordered, Transfuse with next HD as needed HTN: Current BP meds as reviewed. See orders for changes. BONE & MINERAL: follow phos and alter binder regimen prn NV - Doubt Uremic per se - cehck KUB for constipation - no BM since Thursday Discussed Plan of Care with pt at bedside Problems: COMMENT/RELEVANT DATA Meds Current Medications Medications (Trade) Dose Ordered Sig/Any Start Time Stop Time Status Last Admin Dose Admin Acetaminophen (Tylenol) 650 mg PRN Q6HRS PRN 04/17/17 19:45 04/19/17 23:23 650 MG Amlodipine Besylate (Norvasc) 10 mg DAILY 04/18/17 09:00 04/20/17 08:29 10 MG Carvedilol (Coreg) 12.5 mg BIDWMEALS 04/17/17 20:00 04/20/17 08:29 12.5 MG Cinacalcet (Sensipar) 30 mg DAILYWLUN 04/18/17 12:00 04/19/17 11:55 30 MG Ciprofloxacin (Cipro) 500 mg DAILY 04/18/17 09:00 04/18/17 09:00 DC Clonidine HCl (Catapres) 0.1 mg PRN Q2HR PRN 04/17/17 19:45 04/18/17 02:59 0.1 MG Diphenhydramine HCl (Benadryl) 25 mg 1X PRN PRN 04/18/17 07:45 04/19/17 07:44 DC Enoxaparin Sodium (Lovenox 30mg Syringe) 30 mg 1X ONCE 04/20/17 10:00 04/20/17 10:01 DC Fentanyl Citrate (Fentanyl 2ml Vial) 25 mcg PRN Q3HRS PRN 04/17/17 19:45 Fluticasone Propionate (Flonase) 2 spray DAILY 04/18/17 09:00 04/20/17 08:29 2 SPRAY Hydralazine HCl (Apresoline) 10 mg PRN Q4HRS PRN 04/17/17 18:15 04/18/17 23:35 10 MG Info (PHARMACY MONITORING -- do not chart) 1 each PRN DAILY PRN 04/18/17 07:45 Latanoprost (Xalatan) 1 drop QHS 04/17/17 21:00 04/19/17 21:27 1 DROP Lisinopril (Prinivil) 40 mg BID 04/17/17 21:00 04/20/17 08:29 40 MG Ondansetron HCl (Zofran) 4 mg PRN Q8HRS PRN 04/18/17 17:00 04/20/17 07:37 4 MG Pantoprazole Sodium (Protonix) 40 mg DAILYAC 04/17/17 22:00 04/20/17 07:37 40 MG Sevelamer Carbonate (Renvela) 800 mg TIDWMEALS 04/17/17 20:00 04/20/17 08:29 800 MG Sodium Chloride (Normal Saline Flush) 10 ml 1X PRN PRN 04/18/17 08:15 Sucralfate (Carafate) 1 gm TIDAC 04/18/17 07:30 04/20/17 07:37 1 GM Vitamin B Complex/ Vitamin C (Evelyn-Elsa) 1 tab DAILY 04/18/17 09:00 04/20/17 08:28 1 TAB Zolpidem Tartrate (Ambien) 5 mg PRN QHS PRN 04/17/17 19:45 04/19/17 21:27 5 MG Lab Laboratory Tests Test 04/19/17 11:55 04/19/17 16:16 04/19/17 20:40 04/20/17 04:50 Glucose (Fingerstick) 96 mg/dL (70-99) 80 mg/dL (70-99) 93 mg/dL (70-99) White Blood Count 6.1 x10^3/uL (4.0-11.0) Red Blood Count 3.14 x10^6/uL (3.50-5.40) Hemoglobin 9.5 g/dL (12.0-15.5) Hematocrit 28.5 % (36.0-47.0) Mean Corpuscular Volume 91 fL (79-100) Mean Corpuscular Hemoglobin 30 pg (25-35) Mean Corpuscular Hemoglobin Concent 33 g/dL (31-37) Red Cell Distribution Width 15.3 % (11.5-14.5) Platelet Count 109 x10^3/uL (140-400) Neutrophils (%) (Auto) 52 % (31-73) Lymphocytes (%) (Auto) 31 % (24-48) Monocytes (%) (Auto) 9 % (0-9) Eosinophils (%) (Auto) 8 % (0-3) Basophils (%) (Auto) 1 % (0-3) Neutrophils # (Auto) 3.2 x10^3uL (1.8-7.7) Lymphocytes # (Auto) 1.9 x10^3/uL (1.0-4.8) Monocytes # (Auto) 0.5 x10^3/uL (0.0-1.1) Eosinophils # (Auto) 0.5 x10^3/uL (0.0-0.7) Basophils # (Auto) 0.0 x10^3/uL (0.0-0.2) Sodium Level 137 mmol/L (136-145) Potassium Level 4.1 mmol/L (3.5-5.1) Chloride Level 102 mmol/L (98-107) Carbon Dioxide Level 26 mmol/L (21-32) Anion Gap 9 (6-14) Blood Urea Nitrogen 26 mg/dL (7-20) Creatinine 8.0 mg/dL (0.6-1.0) Estimated GFR (Cockcroft-Gault) 6.0 BUN/Creatinine Ratio 3 (6-20) Glucose Level 97 mg/dL (70-99) Calcium Level 8.7 mg/dL (8.5-10.1) Total Bilirubin 0.4 mg/dL (0.2-1.0) Aspartate Amino Transf (AST/SGOT) 19 U/L (15-37) Alanine Aminotransferase (ALT/SGPT) 8 U/L (14-59) Alkaline Phosphatase 79 U/L (46-116) Total Protein 7.4 g/dL (6.4-8.2) Albumin 3.2 g/dL (3.4-5.0) Albumin/Globulin Ratio 0.8 (1.0-1.7) Test 04/20/17 07:19 04/20/17 11:17 Glucose (Fingerstick) 98 mg/dL (70-99) 86 mg/dL (70-99) FRANCOIS IBARRA MD Apr 20, 2017 11:40
[2017-04-20] MEDS ORDERED: MAGNESIUM SULFATE 2GM 50 ML IV PRN (11:45)
[2017-04-20] MEDS: CINACALCET HCL 30 MG TABLET PO SCH (11:57)
--- NOTE | 2017-04-20 12:58 | RAD ---
Upright abdomen, single view, 04/20/2017: History: Nausea and vomiting, constipation An upright view of the upper abdomen was obtained as requested. No free air is seen in the abdomen. There is a small amount of gas and stool in the visualized portion of the colon. There is a large calcified uterine fibroid. The heart remains at the upper limits of normal in size. A right-sided dialysis type catheter extends to the level of the atriocaval junction. IMPRESSION: No acute abdominal abnormality is detected.
--- NOTE | 2017-04-20 13:35 | ACF ---
Admit Criteria Forms Admit Criteria Forms Admit Criteria Forms ABDOMINAL PAIN Clinical Indications for Admission to Inpatient Care (Place 'X' for any and all applicable criteria): Admission is indicated for ANY ONE of the following(1)(2)(3)(4)(5): [X ]I. Inpatient admission required rather than observation care (Also use Abdominal Pain: Observation Care, as appropriate) because of ANY ONE of the following: [ ]a) Severe pain requiring acute inpatient management [X]b) Identification of etiology/finding that requires inpatient care (eg, aortic dissection, free air) [ ]c) Absent bowel sounds with complete ileus(6) [ ]d) Suspected toxic megacolon [ ]e) Severe electrolyte abnormalities requiring inpatient care [ ]f) High fever or infection requiring inpatient admission as indicated by ANY ONE of following(7)(8): [ ] i) Appropriate outpatient or observational care antimicrobial treatment unavailable, not effective, or not feasible [ ] ii) Documented bacteremia [ ] iii) Temperature > 104.9 degrees F (oral) [ ] iv) T >103.1 F (oral) or < 96.8 F(rectal) that does not respond to all emergency treatment measures [ ]g) Signs of intestinal obstruction [B] [ ]h) Hemodynamic instability [ ]i) IV fluid to replace significant ongoing losses (greater than 3 L/m2 per day) (12)(13) [ ]j) Percutaneous or open drainage (eg, abscess, biliary tract ) procedures [ ]k) Parenteral nutrition regimen that must be implemented on inpatient basis [ ]l) Other condition,treatment or monitoring requiring inpatient admission. [ ]II. Peritoneal signs present [ ]III. Surgery needed that cannot be performed on an ambulatory basis. [ ]IV. Evaluation requires patient to not eat or drink for extended period ( eg, more than 24 hours). [ ]V. Contraindications and/or Inappropriate clinical situations for Observational Care in patients with abdominal pain, when ANY ONE of the following is required: [ ]a) Thorough evaluation is required to prevent catastrophic events due to delays in diagnosing (e.g.Mesenteric ischemia) 1,3 [ ]b) Patient with severe pathology or with chronic symptoms unlikely to improve in the ED stay (3) [ ]. General contraindications and/or Inappropriate clinical situations for Observational Care in patients with abdominal pain, when ANY ONE of the following is required: [ ]a) Prediction of prolongation of LOS based on ANY ONE of the following may be considered as a contraindication for observational care 2, 3, 4, 5, 6, 7, 8, 9, 10, 11 [ ]i) Age > 65 yrs. [ ]ii) Patient arriving by ambulance [ ]iii) Patient with high acuity [ ]iv) Patient requiring vital sign monitoring [ ]v) Patient on IV medication [ ]b) Systolic blood pressures 180mmHg 3,12 [ ]c) Patient with altered mental status including delirium and other alteration of consciousness, (3) [ ]d) Patient whose discharge disposition will be to a prison home or rehabilitation home should not be managed in Emergency Department Observation Unit. CMS rule requires 3 days hospital stay before such placement.3,13 [ ]e) Patient with failure to thrive due to broad array of etiologies 3,16,17 [ ]f) Inability to ambulate 3,14 Extended stay beyond goal length of stay may be needed for(2)(3): [ ]a) Persistent abdominal pain with suspected intra-abdominal process [ ]b) Diagnosed condition requiring continued stay (e.g., pancreatitis, complicated diverticulitis) [ ]c) Surgery (e.g., colectomy) The original [employer] content created by [employer] has been revised. The portions of the content which have been revised are identified through the use of italic text or in bold, and [email or web address] has neither reviewed nor approved the modified material.All other unmodified content is copyright [employer]. Please see references footnoted in the original [employer] edition 2016 KRISTI VINES Apr 20, 2017 13:35
--- NOTE | 2017-04-20 13:45 | PDOC ---
G I PROGRESS NOTE Reason for Follow-up Abd pain Subjective Feeling better Physical Exam Lungs clear CV S1 S2 ABD +BS, soft, nontender Review of Relevant I have reviewed the following items dorina (where applicable) has been applied. Labs Laboratory Tests Test 04/18/17 16:51 04/18/17 20:34 04/19/17 05:40 04/19/17 07:50 Glucose (Fingerstick) 97 mg/dL (70-99) 119 mg/dL (70-99) 102 mg/dL (70-99) White Blood Count 5.5 x10^3/uL (4.0-11.0) Red Blood Count 3.32 x10^6/uL (3.50-5.40) Hemoglobin 10.0 g/dL (12.0-15.5) Hematocrit 29.5 % (36.0-47.0) Mean Corpuscular Volume 89 fL (79-100) Mean Corpuscular Hemoglobin 30 pg (25-35) Mean Corpuscular Hemoglobin Concent 34 g/dL (31-37) Red Cell Distribution Width 15.9 % (11.5-14.5) Platelet Count 120 x10^3/uL (140-400) Neutrophils (%) (Auto) 60 % (31-73) Lymphocytes (%) (Auto) 24 % (24-48) Monocytes (%) (Auto) 9 % (0-9) Eosinophils (%) (Auto) 6 % (0-3) Basophils (%) (Auto) 1 % (0-3) Neutrophils # (Auto) 3.3 x10^3uL (1.8-7.7) Lymphocytes # (Auto) 1.3 x10^3/uL (1.0-4.8) Monocytes # (Auto) 0.5 x10^3/uL (0.0-1.1) Eosinophils # (Auto) 0.3 x10^3/uL (0.0-0.7) Basophils # (Auto) 0.0 x10^3/uL (0.0-0.2) Sodium Level 139 mmol/L (136-145) Potassium Level 4.2 mmol/L (3.5-5.1) Chloride Level 101 mmol/L (98-107) Carbon Dioxide Level 27 mmol/L (21-32) Anion Gap 11 (6-14) Blood Urea Nitrogen 16 mg/dL (7-20) Creatinine 6.0 mg/dL (0.6-1.0) Estimated GFR (Cockcroft-Gault) 8.4 BUN/Creatinine Ratio 3 (6-20) Glucose Level 98 mg/dL (70-99) Calcium Level 9.5 mg/dL (8.5-10.1) Total Bilirubin 0.5 mg/dL (0.2-1.0) Direct Bilirubin 0.2 mg/dL (0.0-0.2) Aspartate Amino Transf (AST/SGOT) 19 U/L (15-37) Alanine Aminotransferase (ALT/SGPT) 8 U/L (14-59) Alkaline Phosphatase 93 U/L (46-116) Total Protein 7.4 g/dL (6.4-8.2) Albumin 3.4 g/dL (3.4-5.0) Albumin/Globulin Ratio 0.9 (1.0-1.7) Lipase 281 U/L (73-393) Test 04/19/17 11:55 04/19/17 16:16 04/19/17 20:40 04/20/17 04:50 Glucose (Fingerstick) 96 mg/dL (70-99) 80 mg/dL (70-99) 93 mg/dL (70-99) White Blood Count 6.1 x10^3/uL (4.0-11.0) Red Blood Count 3.14 x10^6/uL (3.50-5.40) Hemoglobin 9.5 g/dL (12.0-15.5) Hematocrit 28.5 % (36.0-47.0) Mean Corpuscular Volume 91 fL (79-100) Mean Corpuscular Hemoglobin 30 pg (25-35) Mean Corpuscular Hemoglobin Concent 33 g/dL (31-37) Red Cell Distribution Width 15.3 % (11.5-14.5) Platelet Count 109 x10^3/uL (140-400) Neutrophils (%) (Auto) 52 % (31-73) Lymphocytes (%) (Auto) 31 % (24-48) Monocytes (%) (Auto) 9 % (0-9) Eosinophils (%) (Auto) 8 % (0-3) Basophils (%) (Auto) 1 % (0-3) Neutrophils # (Auto) 3.2 x10^3uL (1.8-7.7) Lymphocytes # (Auto) 1.9 x10^3/uL (1.0-4.8) Monocytes # (Auto) 0.5 x10^3/uL (0.0-1.1) Eosinophils # (Auto) 0.5 x10^3/uL (0.0-0.7) Basophils # (Auto) 0.0 x10^3/uL (0.0-0.2) Sodium Level 137 mmol/L (136-145) Potassium Level 4.1 mmol/L (3.5-5.1) Chloride Level 102 mmol/L (98-107) Carbon Dioxide Level 26 mmol/L (21-32) Anion Gap 9 (6-14) Blood Urea Nitrogen 26 mg/dL (7-20) Creatinine 8.0 mg/dL (0.6-1.0) Estimated GFR (Cockcroft-Gault) 6.0 BUN/Creatinine Ratio 3 (6-20) Glucose Level 97 mg/dL (70-99) Calcium Level 8.7 mg/dL (8.5-10.1) Total Bilirubin 0.4 mg/dL (0.2-1.0) Aspartate Amino Transf (AST/SGOT) 19 U/L (15-37) Alanine Aminotransferase (ALT/SGPT) 8 U/L (14-59) Alkaline Phosphatase 79 U/L (46-116) Total Protein 7.4 g/dL (6.4-8.2) Albumin 3.2 g/dL (3.4-5.0) Albumin/Globulin Ratio 0.8 (1.0-1.7) Test 04/20/17 07:19 04/20/17 11:17 Glucose (Fingerstick) 98 mg/dL (70-99) 86 mg/dL (70-99) Laboratory Tests Test 04/19/17 16:16 04/19/17 20:40 04/20/17 04:50 04/20/17 07:19 Glucose (Fingerstick) 80 mg/dL (70-99) 93 mg/dL (70-99) 98 mg/dL (70-99) White Blood Count 6.1 x10^3/uL (4.0-11.0) Red Blood Count 3.14 x10^6/uL (3.50-5.40) Hemoglobin 9.5 g/dL (12.0-15.5) Hematocrit 28.5 % (36.0-47.0) Mean Corpuscular Volume 91 fL (79-100) Mean Corpuscular Hemoglobin 30 pg (25-35) Mean Corpuscular Hemoglobin Concent 33 g/dL (31-37) Red Cell Distribution Width 15.3 % (11.5-14.5) Platelet Count 109 x10^3/uL (140-400) Neutrophils (%) (Auto) 52 % (31-73) Lymphocytes (%) (Auto) 31 % (24-48) Monocytes (%) (Auto) 9 % (0-9) Eosinophils (%) (Auto) 8 % (0-3) Basophils (%) (Auto) 1 % (0-3) Neutrophils # (Auto) 3.2 x10^3uL (1.8-7.7) Lymphocytes # (Auto) 1.9 x10^3/uL (1.0-4.8) Monocytes # (Auto) 0.5 x10^3/uL (0.0-1.1) Eosinophils # (Auto) 0.5 x10^3/uL (0.0-0.7) Basophils # (Auto) 0.0 x10^3/uL (0.0-0.2) Sodium Level 137 mmol/L (136-145) Potassium Level 4.1 mmol/L (3.5-5.1) Chloride Level 102 mmol/L (98-107) Carbon Dioxide Level 26 mmol/L (21-32) Anion Gap 9 (6-14) Blood Urea Nitrogen 26 mg/dL (7-20) Creatinine 8.0 mg/dL (0.6-1.0) Estimated GFR (Cockcroft-Gault) 6.0 BUN/Creatinine Ratio 3 (6-20) Glucose Level 97 mg/dL (70-99) Calcium Level 8.7 mg/dL (8.5-10.1) Total Bilirubin 0.4 mg/dL (0.2-1.0) Aspartate Amino Transf (AST/SGOT) 19 U/L (15-37) Alanine Aminotransferase (ALT/SGPT) 8 U/L (14-59) Alkaline Phosphatase 79 U/L (46-116) Total Protein 7.4 g/dL (6.4-8.2) Albumin 3.2 g/dL (3.4-5.0) Albumin/Globulin Ratio 0.8 (1.0-1.7) Test 04/20/17 11:17 Glucose (Fingerstick) 86 mg/dL (70-99) Microbiology 04/18/17 Blood Culture - Preliminary, Resulted NO GROWTH AFTER 2 DAYS Medications Current Medications Ondansetron HCl (Zofran) 4 mg 1X ONCE IV Last administered on 04/17/17 16:45 ; Start 04/17/17 at 16:45; Stop 04/17/17 at 16:46; Status DC Ondansetron HCl (Zofran) 4 mg PRN Q8HRS PRN IV NAUSEA/VOMITING Last administered on 04/17/17 17:26; Start 04/17/17 at 17:15; Stop 04/17/17 at 22:44 ; Status DC Hydralazine HCl (Apresoline) 10 mg PRN Q4HRS PRN IVP ELEVATED BP, SEE COMMENTS Last administered on 04/18/17 23:35; Start 04/17/17 at 18:15 Amlodipine Besylate (Norvasc) 10 mg DAILY PO Last administered on 04/20/17 08: 29; Start 04/18/17 at 09:00 Cinacalcet (Sensipar) 30 mg DAILYWLUN PO Last administered on 04/20/17 11:57; Start 04/18/17 at 12:00 Ciprofloxacin (Cipro) 500 mg DAILY PO ; Start 04/18/17 at 09:00; Stop 04/18/17 at 09:00; Status DC Clonidine HCl (Catapres) 0.1 mg PRN Q2HR PRN PO HYPERTENSION, SEE COMMENTS Last administered on 04/18/17 02:59; Start 04/17/17 at 19:45 Vitamin B Complex/ Vitamin C (Evelyn-Elsa) 1 tab DAILY PO Last administered on 08:28; Start 04/18/17 at 09:00 Latanoprost (Xalatan) 1 drop QHS OU Last administered on 04/19/17 21:27; Start 04/17/17 at 21:00 Lisinopril (Prinivil) 40 mg BID PO Last administered on 04/20/17 08:29; Start 04/17/17 at 21:00 Pantoprazole Sodium (Protonix) 40 mg DAILY07 PO ; Start 04/18/17 at 07:00; Stop 04/18/17 at 07:00; Status DC Sevelamer Carbonate (Renvela) 800 mg TIDWMEALS PO Last administered on 11:57; Start 04/17/17 at 20:00 Sucralfate (Carafate) 1 gm TIDAC PO Last administered on 04/20/17 11:57; Start 04/18/17 at 07:30 Zolpidem Tartrate (Ambien) 5 mg PRN QHS PRN PO INSOMNIA Last administered on 21:27; Start 04/17/17 at 19:45 Carvedilol (Coreg) 12.5 mg BIDWMEALS PO Last administered on 04/20/17 08:29; Start 04/17/17 at 20:00 Pantoprazole Sodium (Protonix) 40 mg DAILYAC PO ; Start 04/18/17 at 07:30; Stop 04/18/17 at 07:30; Status DC Fluticasone Propionate (Flonase) 2 spray DAILY NS Last administered on 08:29; Start 04/18/17 at 09:00 Fentanyl Citrate (Fentanyl 2ml Vial) 25 mcg PRN Q3HRS PRN IV PAIN; Start at 19:45 Acetaminophen (Tylenol) 650 mg PRN Q6HRS PRN PO PAIN Last administered on 23:23; Start 04/17/17 at 19:45 Pantoprazole Sodium (Protonix) 40 mg DAILYAC PO Last administered on 04/20/17 07:37; Start 04/17/17 at 22:00 Ondansetron HCl (Zofran) 4 mg PRN Q6HRS PRN IV NAUSEA/VOMITING Last administered on 04/18/17 08:04; Start 04/17/17 at 22:45; Stop 04/18/17 at 08:13 ; Status DC Sodium Chloride 1,000 ml @ 1,000 mls/hr Q1H PRN IV hypotension; Start 04/18/17 at 07:40; Stop 04/18/17 at 08:13; Status DC Diphenhydramine HCl (Benadryl) 25 mg 1X PRN PRN IV ITCHING; Start 04/18/17 at 07:45; Stop 04/19/17 at 07:44; Status DC Diphenhydramine HCl (Benadryl) 25 mg 1X PRN PRN IV ITCHING; Start 04/18/17 at 07:45; Stop 04/19/17 at 07:44; Status DC Sodium Chloride (Normal Saline Flush) 10 ml 1X PRN PRN IV AP catheter pack; Start 04/18/17 at 07:45; Stop 04/18/17 at 08:13; Status DC Sodium Chloride (Normal Saline Flush) 10 ml 1X PRN PRN IV PASTA MAKER catheter pack; Start 04/18/17 at 07:45; Stop 04/18/17 at 08:13; Status DC Sodium Chloride 1,000 ml @ 400 mls/hr Q2H30M PRN IV PATENCY; Start 04/18/17 at 07:40; Stop 04/18/17 at 08:13; Status DC Info (PHARMACY MONITORING -- do not chart) 1 each PRN DAILY PRN MC SEE COMMENTS ; Start 04/18/17 at 07:45 Sodium Chloride (Normal Saline Flush) 10 ml 1X PRN PRN IV AP catheter pack; Start 04/18/17 at 08:15 Ondansetron HCl (Zofran) 4 mg PRN Q8HRS PRN IV NAUSEA/VOMITING Last administered on 04/20/17t 07:37; Start 04/18/17 at 17:00 Enoxaparin Sodium (Lovenox 30mg Syringe) 30 mg 1X ONCE SQ Last administered on 04/20/17t 11:59; Start 04/20/17 at 10:00; Stop 04/20/17 at 10:01; Status DC Polyethylene Glycol (miraLAX PACKET) 17 gm TID PO ; Start 04/20/17 at 14:00 Magnesium Sulfate/ Dextrose 50 ml @ 25 mls/hr PRN DAILY PRN IV for Mag < 1.7 on am labs; Start 04/20/17 at 11:45 Active Scripts Active Zofran (Ondansetron Hcl) 4 Mg Tablet 1 Tab PO Q6HRS Reported Nexium Capsule (Esomeprazole Magnesium) 20 Mg Capsule.dr 1 Cap PO DAILY Zolpidem Tartrate 5 Mg Tablet 5 Mg PO PRN QHS PRN Lisinopril 40 Mg Tablet 1 Tab PO BID Latanoprost 2.5 Ml Drops 1 Drop EACHEYE QHS Pantoprazole Sodium 40 Mg Tablet.dr 40 Mg PO DAILY Sensipar (Cinacalcet Hcl) 30 Mg Tablet 30 Mg PO DAILYWLUN Renvela (Sevelamer Carbonate) 800 Mg Tablet 800 Mg PO TIDWMEALS Nephro-Elsa Tablet (Folic Acid/Vitamin B Comp W-C) 0.8 Mg Tablet 1 Tab PO DAILY Nasonex (Mometasone Furoate) 17 Gm [place].pump 2 Sprays NS DAILY Clonidine Hcl 0.1 Mg Tablet 0.1 Mg PO PRN Q2HR PRN Carvedilol 25 Mg Tablet 12.5 Mg PO BIDWMEALS Carafate (Sucralfate) 1 Gm Tablet 1 Gm PO TIDAC Amlodipine Besylate 10 Mg Tablet 10 Mg PO DAILY Vitals/I & O Vital Sign - Last 24 Hours 04/19/17 04/19/17 04/19/17 04/19/17 15:00 17:15 19:00 20:15 Temp 98.5 99.0 98.5 99.0 Pulse 64 64 61 Resp 18 20 B/P (MAP) 150/83 (105) 150/83 166/71 (102) Pulse Ox 97 99 O2 Delivery Room Air Room Air Room Air 04/19/17 04/19/17 04/20/17 04/20/17 21:27 23:00 03:13 07:15 Temp 100.0 97.9 97.9 100.0 97.9 97.9 Pulse 61 72 68 53 Resp 20 20 18 B/P (MAP) 166/71 152/75 (100) 159/55 (89) 183/76 (111) Pulse Ox 97 98 98 O2 Delivery Room Air Room Air Room Air 04/20/17 04/20/17 04/20/17 04/20/17 07:30 08:29 08:29 08:29 Pulse 53 53 53 B/P (MAP) 183/76 183/76 183/76 O2 Delivery Room Air 04/20/17 10:30 Temp 98.1 98.1 Pulse 64 Resp 18 B/P (MAP) 182/72 (108) Pulse Ox 96 O2 Delivery Room Air Intake and Output 04/19/17 04/19/17 04/20/17 15:00 23:00 07:00 Intake Total 500 ml 240 ml Balance 500 ml 240 ml Problem List Problems Medical Problems: (1) R11.0 Status: Acute Assessment Abd pain- with microlithiasis, most likely multifactorial in etiology Plan of Care Note Advance diet as tolerated, component of chronic GB disease possible, CPM LISA MAYEN MD Apr 20, 2017 13:45
[2017-04-20 14:30] VITALS: BP_SYST 169; BP_SYST 174; BP_SYST 184; BP_DIAS 76; BP_DIAS 80; BP_DIAS 82
[2017-04-20] MEDS: POLYETHYLENE GLYCOL 3350 17 GM PACKET. PO SCH ×2 (14:34→20:52)
[2017-04-20] MEDS ORDERED: IV NORMAL SALINE 1000ML BAG 1,000 ML IV PRN (15:00)
[2017-04-20] MEDS ORDERED: DIALYSIS PATIENT. MC PRN (15:00)
[2017-04-20] MEDS ORDERED: 0.9 % SODIUM CHLORIDE 10 ML DISP.SYRIN. IV PRN ×2 (15:00)
--- NOTE | 2017-04-20 15:23 | PDOC2 ---
CONSULT Date of Consult Date of Consult DATE: 04/20/17 TIME: 13:30 Reason for Consult Reason for Consult: Long-term hemodialysis access Referring Physician Referring Physician: Dr. Yasir Bunch Identification/Chief Complaint Chief Complaint Nausea and vomiting. Problems: Source Source: Chart review, Patient History of Present Illness Reason for Visit: This is a pleasant 71-year-old female with a history of hypertension and end-stage kidney disease on hemodialysis for the last 12 years who was feeling fine until she woke up on Thursday morning. She began to experience nausea with vomiting. She noted some chills as well as slight confusion. Her daughter became concerned and brought her into the Emergency Room to be evaluated. The patient was found to be severely hypertensive as well. A CT of the head was performed which was negative for an acute process. The patient has been admitted for further evaluation and treatment. The patient does have a history of a non-functioning AV shunt in the right forearm that was placed approximately 12-years ago. Per the patient, this clotted off 2 months ago. A temporary dialysis catheter was placed and over the past 2 months, there have been issues with infected catheters, positive blood cultures and catheter replacements. Most recently, the patient had a dialysis catheter placed in her right chest by Interventional Radiology last week on April 16, 2017 when her catheter "just fell out" at the dialysis center. She states she is no longer on antibiotics and was told she would not get another long-term access until she is free and clear of infection. Blood cultures have been drawn during this admission and are negative so far. Vascular Surgery has been consulted for consideration of placement of a adjunct faculty for medical terminology dialysis access. Typically, the patient dialyses on Thursday's, s and Thursday's but will be on a [id number] schedule while in the hospital. Past Medical History Cardiovascular: CHF (diastolic EF normal ), HTN CENTRAL NERVOUS SYSTEM: Other GI: GERD, Gastritis Heme/Onc: Anemia NOS (ESRD Fe ) Psych: Anxiety, Depression Musculoskeletal: Osteoarthritis (generalized ) ENT: Allergic Rhinitis, Other (glaucoma) Renal/: Chronic renal failure (ESRD hemodialysis MWF), Other Endocrine: Hyperparathyroidism (secondary ) Past Surgical History Past Surgical History: Cataract Removal, Total knee replacement (bilateral), Other (AV fistula/shunt to right forearm) Family History Family History: Heart Disease, Hypertension, Stroke Social History No ALCOHOL: none Drugs: None Lives: with Family Current Problem List Problem List Problems Medical Problems: (1) R11.0 Status: Acute Current Medications Current Medications Current Medications Ondansetron HCl (Zofran) 4 mg 1X ONCE IV Last administered on 04/17/17 16:45 ; Start 04/17/17 at 16:45; Stop 04/17/17 at 16:46; Status DC Ondansetron HCl (Zofran) 4 mg PRN Q8HRS PRN IV NAUSEA/VOMITING Last administered on 04/17/17 17:26; Start 04/17/17 at 17:15; Stop 04/17/17 at 22:44 ; Status DC Hydralazine HCl (Apresoline) 10 mg PRN Q4HRS PRN IVP ELEVATED BP, SEE COMMENTS Last administered on 04/18/17 23:35; Start 04/17/17 at 18:15 Amlodipine Besylate (Norvasc) 10 mg DAILY PO Last administered on 04/20/17 08: 29; Start 04/18/17 at 09:00 Cinacalcet (Sensipar) 30 mg DAILYWLUN PO Last administered on 04/20/17 11:57; Start 04/18/17 at 12:00 Ciprofloxacin (Cipro) 500 mg DAILY PO ; Start 04/18/17 at 09:00; Stop 04/18/17 at 09:00; Status DC Clonidine HCl (Catapres) 0.1 mg PRN Q2HR PRN PO HYPERTENSION, SEE COMMENTS Last administered on 04/18/17 02:59; Start 04/17/17 at 19:45 Vitamin B Complex/ Vitamin C (Evelyn-Elsa) 1 tab DAILY PO Last administered on 08:28; Start 04/18/17 at 09:00 Latanoprost (Xalatan) 1 drop QHS OU Last administered on 04/19/17 21:27; Start 04/17/17 at 21:00 Lisinopril (Prinivil) 40 mg BID PO Last administered on 04/20/17 08:29; Start 04/17/17 at 21:00 Pantoprazole Sodium (Protonix) 40 mg DAILY07 PO ; Start 04/18/17 at 07:00; Stop 04/18/17 at 07:00; Status DC Sevelamer Carbonate (Renvela) 800 mg TIDWMEALS PO Last administered on 11:57; Start 04/17/17 at 20:00 Sucralfate (Carafate) 1 gm TIDAC PO Last administered on 04/20/17 11:57; Start 04/18/17 at 07:30 Zolpidem Tartrate (Ambien) 5 mg PRN QHS PRN PO INSOMNIA Last administered on 21:27; Start 04/17/17 at 19:45 Carvedilol (Coreg) 12.5 mg BIDWMEALS PO Last administered on 04/20/17 08:29; Start 04/17/17 at 20:00 Pantoprazole Sodium (Protonix) 40 mg DAILYAC PO ; Start 04/18/17 at 07:30; Stop 04/18/17 at 07:30; Status DC Fluticasone Propionate (Flonase) 2 spray DAILY NS Last administered on 08:29; Start 04/18/17 at 09:00 Fentanyl Citrate (Fentanyl 2ml Vial) 25 mcg PRN Q3HRS PRN IV PAIN; Start at 19:45 Acetaminophen (Tylenol) 650 mg PRN Q6HRS PRN PO PAIN Last administered on 23:23; Start 04/17/17 at 19:45 Pantoprazole Sodium (Protonix) 40 mg DAILYAC PO Last administered on 04/20/17 07:37; Start 04/17/17 at 22:00 Ondansetron HCl (Zofran) 4 mg PRN Q6HRS PRN IV NAUSEA/VOMITING Last administered on 04/18/17 08:04; Start 04/17/17 at 22:45; Stop 04/18/17 at 08:13 ; Status DC Sodium Chloride 1,000 ml @ 1,000 mls/hr Q1H PRN IV hypotension; Start 04/18/17 at 07:40; Stop 04/18/17 at 08:13; Status DC Diphenhydramine HCl (Benadryl) 25 mg 1X PRN PRN IV ITCHING; Start 04/18/17 at 07:45; Stop 04/19/17 at 07:44; Status DC Diphenhydramine HCl (Benadryl) 25 mg 1X PRN PRN IV ITCHING; Start 04/18/17 at 07:45; Stop 04/19/17 at 07:44; Status DC Sodium Chloride (Normal Saline Flush) 10 ml 1X PRN PRN IV AP catheter pack; Start 04/18/17 at 07:45; Stop 04/18/17 at 08:13; Status DC Sodium Chloride (Normal Saline Flush) 10 ml 1X PRN PRN IV STRIKE PLANNING APPLICATIONS catheter pack; Start 04/18/17 at 07:45; Stop 04/18/17 at 08:13; Status DC Sodium Chloride 1,000 ml @ 400 mls/hr Q2H30M PRN IV PATENCY; Start 04/18/17 at 07:40; Stop 04/18/17 at 08:13; Status DC Info (PHARMACY MONITORING -- do not chart) 1 each PRN DAILY PRN MC SEE COMMENTS ; Start 04/18/17 at 07:45 Sodium Chloride (Normal Saline Flush) 10 ml 1X PRN PRN IV AP catheter pack; Start 04/18/17 at 08:15 Ondansetron HCl (Zofran) 4 mg PRN Q8HRS PRN IV NAUSEA/VOMITING Last administered on 04/20/17 07:37; Start 04/18/17 at 17:00 Enoxaparin Sodium (Lovenox 30mg Syringe) 30 mg 1X ONCE SQ Last administered on 04/20/17 11:59; Start 04/20/17 at 10:00; Stop 04/20/17 at 10:01; Status DC Polyethylene Glycol (miraLAX PACKET) 17 gm TID PO Last administered on 14:34; Start 04/20/17 at 14:00 Magnesium Sulfate/ Dextrose 50 ml @ 25 mls/hr PRN DAILY PRN IV for Mag < 1.7 on am labs; Start 04/20/17 at 11:45 Ondansetron HCl (Zofran) 4 mg PRN Q6HRS PRN IV NAUSEA/VOMITING; Start 04/21/17 at 07:00; Stop 04/22/17 at 06:59 Lidocaine HCl 2 ml PRN 1X PRN ID PRIOR TO IV START; Start 04/21/17 at 07:00; Stop 04/22/17 at 06:59 Prochlorperazine Edisylate (Compazine) 5 mg PACU PRN PRN IV NAUSEA, MRX1; Start 04/21/17 at 07:00; Stop 04/22/17 at 06:59 Sodium Chloride 1,000 ml @ 0 mls/hr Q0M IV ; Start 04/21/17 at 07:45 Active Scripts Active Zofran (Ondansetron Hcl) 4 Mg Tablet 1 Tab PO Q6HRS Reported Nexium Capsule (Esomeprazole Magnesium) 20 Mg Capsule.dr 1 Cap PO DAILY Zolpidem Tartrate 5 Mg Tablet 5 Mg PO PRN QHS PRN Lisinopril 40 Mg Tablet 1 Tab PO BID Latanoprost 2.5 Ml Drops 1 Drop EACHEYE QHS Pantoprazole Sodium 40 Mg Tablet.dr 40 Mg PO DAILY Sensipar (Cinacalcet Hcl) 30 Mg Tablet 30 Mg PO DAILYWLUN Renvela (Sevelamer Carbonate) 800 Mg Tablet 800 Mg PO TIDWMEALS Nephro-Elsa Tablet (Folic Acid/Vitamin B Comp W-C) 0.8 Mg Tablet 1 Tab PO DAILY Nasonex (Mometasone Furoate) 17 Gm Bath.pump 2 Sprays NS DAILY Clonidine Hcl 0.1 Mg Tablet 0.1 Mg PO PRN Q2HR PRN Carvedilol 25 Mg Tablet 12.5 Mg PO BIDWMEALS Carafate (Sucralfate) 1 Gm Tablet 1 Gm PO TIDAC Amlodipine Besylate 10 Mg Tablet 10 Mg PO DAILY Allergies Allergies: Coded Allergies: chlorhexidine (Verified Allergy, Intermediate, Rash, 06/03/16) Opioids - Morphine Analogues (Verified Adverse Reaction, Intermediate, Nausea and Vomiting, 06/03/16) Opioids-Meperidine and Related (Verified Adverse Reaction, Intermediate, Nausea and Vomiting, 06/03/16) Opioids-Methadone and Related (Verified Adverse Reaction, Intermediate, Nausea and Vomiting, 06/03/16) codeine (Verified Adverse Reaction, Intermediate, Nausea and Vomiting, ) ROS General: YES: Chills (prior to admission ), Fatigue HEENT: YES: Other (fullness in throat and felt like her tonsils were enlarged) Respiratory: No: Cough, Shortness of breath, SOB with excertion Cardiovascular: No Chest Pain, No Palpitations Gastrointestinal: Yes Nausea, Yes Vomiting, Yes Constipation Musculoskeletal: Yes Gait Disturbance Physical Exam General: Alert, Oriented X3, Cooperative, No acute distress HEENT: Atraumatic, PERRLA Lungs: Clear to auscultation, Normal air movement Heart: Regular rate, Normal S1, Normal S2, No murmurs Abdomen: Normal bowel sounds, Soft, No tenderness Extremities: No edema, Normal pulses Skin: No rashes, Other (Notable subcutaneous right forearm dialysis access without bruit or thrill. IV access to left neck. Dialysis catheter located in right lower chest.) Psych/Mental Status: Mental status NL Vitals VITALS Vital Signs Date Time Temp Pulse Resp B/P (MAP) Pulse Ox O2 Delivery O2 Flow Rate FiO2 04/20/17 10:30 98.1 64 18 182/72 (108) 96 Room Air 98.1 Labs Labs Laboratory Tests Test 04/18/17 16:51 04/18/17 20:34 04/19/17 05:40 04/19/17 07:50 Glucose (Fingerstick) 97 mg/dL (70-99) 119 mg/dL (70-99) 102 mg/dL (70-99) White Blood Count 5.5 x10^3/uL (4.0-11.0) Red Blood Count 3.32 x10^6/uL (3.50-5.40) Hemoglobin 10.0 g/dL (12.0-15.5) Hematocrit 29.5 % (36.0-47.0) Mean Corpuscular Volume 89 fL (79-100) Mean Corpuscular Hemoglobin 30 pg (25-35) Mean Corpuscular Hemoglobin Concent 34 g/dL (31-37) Red Cell Distribution Width 15.9 % (11.5-14.5) Platelet Count 120 x10^3/uL (140-400) Neutrophils (%) (Auto) 60 % (31-73) Lymphocytes (%) (Auto) 24 % (24-48) Monocytes (%) (Auto) 9 % (0-9) Eosinophils (%) (Auto) 6 % (0-3) Basophils (%) (Auto) 1 % (0-3) Neutrophils # (Auto) 3.3 x10^3uL (1.8-7.7) Lymphocytes # (Auto) 1.3 x10^3/uL (1.0-4.8) Monocytes # (Auto) 0.5 x10^3/uL (0.0-1.1) Eosinophils # (Auto) 0.3 x10^3/uL (0.0-0.7) Basophils # (Auto) 0.0 x10^3/uL (0.0-0.2) Sodium Level 139 mmol/L (136-145) Potassium Level 4.2 mmol/L (3.5-5.1) Chloride Level 101 mmol/L (98-107) Carbon Dioxide Level 27 mmol/L (21-32) Anion Gap 11 (6-14) Blood Urea Nitrogen 16 mg/dL (7-20) Creatinine 6.0 mg/dL (0.6-1.0) Estimated GFR (Cockcroft-Gault) 8.4 BUN/Creatinine Ratio 3 (6-20) Glucose Level 98 mg/dL (70-99) Calcium Level 9.5 mg/dL (8.5-10.1) Total Bilirubin 0.5 mg/dL (0.2-1.0) Direct Bilirubin 0.2 mg/dL (0.0-0.2) Aspartate Amino Transf (AST/SGOT) 19 U/L (15-37) Alanine Aminotransferase (ALT/SGPT) 8 U/L (14-59) Alkaline Phosphatase 93 U/L (46-116) Total Protein 7.4 g/dL (6.4-8.2) Albumin 3.4 g/dL (3.4-5.0) Albumin/Globulin Ratio 0.9 (1.0-1.7) Lipase 281 U/L (73-393) Test 04/19/17 11:55 04/19/17 16:16 04/19/17 20:40 04/20/17 04:50 Glucose (Fingerstick) 96 mg/dL (70-99) 80 mg/dL (70-99) 93 mg/dL (70-99) White Blood Count 6.1 x10^3/uL (4.0-11.0) Red Blood Count 3.14 x10^6/uL (3.50-5.40) Hemoglobin 9.5 g/dL (12.0-15.5) Hematocrit 28.5 % (36.0-47.0) Mean Corpuscular Volume 91 fL (79-100) Mean Corpuscular Hemoglobin 30 pg (25-35) Mean Corpuscular Hemoglobin Concent 33 g/dL (31-37) Red Cell Distribution Width 15.3 % (11.5-14.5) Platelet Count 109 x10^3/uL (140-400) Neutrophils (%) (Auto) 52 % (31-73) Lymphocytes (%) (Auto) 31 % (24-48) Monocytes (%) (Auto) 9 % (0-9) Eosinophils (%) (Auto) 8 % (0-3) Basophils (%) (Auto) 1 % (0-3) Neutrophils # (Auto) 3.2 x10^3uL (1.8-7.7) Lymphocytes # (Auto) 1.9 x10^3/uL (1.0-4.8) Monocytes # (Auto) 0.5 x10^3/uL (0.0-1.1) Eosinophils # (Auto) 0.5 x10^3/uL (0.0-0.7) Basophils # (Auto) 0.0 x10^3/uL (0.0-0.2) Sodium Level 137 mmol/L (136-145) Potassium Level 4.1 mmol/L (3.5-5.1) Chloride Level 102 mmol/L (98-107) Carbon Dioxide Level 26 mmol/L (21-32) Anion Gap 9 (6-14) Blood Urea Nitrogen 26 mg/dL (7-20) Creatinine 8.0 mg/dL (0.6-1.0) Estimated GFR (Cockcroft-Gault) 6.0 BUN/Creatinine Ratio 3 (6-20) Glucose Level 97 mg/dL (70-99) Calcium Level 8.7 mg/dL (8.5-10.1) Total Bilirubin 0.4 mg/dL (0.2-1.0) Aspartate Amino Transf (AST/SGOT) 19 U/L (15-37) Alanine Aminotransferase (ALT/SGPT) 8 U/L (14-59) Alkaline Phosphatase 79 U/L (46-116) Total Protein 7.4 g/dL (6.4-8.2) Albumin 3.2 g/dL (3.4-5.0) Albumin/Globulin Ratio 0.8 (1.0-1.7) Test 04/20/17 07:19 04/20/17 11:17 Glucose (Fingerstick) 98 mg/dL (70-99) 86 mg/dL (70-99) Laboratory Tests Test 04/19/17 16:16 04/19/17 20:40 04/20/17 04:50 04/20/17 07:19 Glucose (Fingerstick) 80 mg/dL (70-99) 93 mg/dL (70-99) 98 mg/dL (70-99) White Blood Count 6.1 x10^3/uL (4.0-11.0) Red Blood Count 3.14 x10^6/uL (3.50-5.40) Hemoglobin 9.5 g/dL (12.0-15.5) Hematocrit 28.5 % (36.0-47.0) Mean Corpuscular Volume 91 fL (79-100) Mean Corpuscular Hemoglobin 30 pg (25-35) Mean Corpuscular Hemoglobin Concent 33 g/dL (31-37) Red Cell Distribution Width 15.3 % (11.5-14.5) Platelet Count 109 x10^3/uL (140-400) Neutrophils (%) (Auto) 52 % (31-73) Lymphocytes (%) (Auto) 31 % (24-48) Monocytes (%) (Auto) 9 % (0-9) Eosinophils (%) (Auto) 8 % (0-3) Basophils (%) (Auto) 1 % (0-3) Neutrophils # (Auto) 3.2 x10^3uL (1.8-7.7) Lymphocytes # (Auto) 1.9 x10^3/uL (1.0-4.8) Monocytes # (Auto) 0.5 x10^3/uL (0.0-1.1) Eosinophils # (Auto) 0.5 x10^3/uL (0.0-0.7) Basophils # (Auto) 0.0 x10^3/uL (0.0-0.2) Sodium Level 137 mmol/L (136-145) Potassium Level 4.1 mmol/L (3.5-5.1) Chloride Level 102 mmol/L (98-107) Carbon Dioxide Level 26 mmol/L (21-32) Anion Gap 9 (6-14) Blood Urea Nitrogen 26 mg/dL (7-20) Creatinine 8.0 mg/dL (0.6-1.0) Estimated GFR (Cockcroft-Gault) 6.0 BUN/Creatinine Ratio 3 (6-20) Glucose Level 97 mg/dL (70-99) Calcium Level 8.7 mg/dL (8.5-10.1) Total Bilirubin 0.4 mg/dL (0.2-1.0) Aspartate Amino Transf (AST/SGOT) 19 U/L (15-37) Alanine Aminotransferase (ALT/SGPT) 8 U/L (14-59) Alkaline Phosphatase 79 U/L (46-116) Total Protein 7.4 g/dL (6.4-8.2) Albumin 3.2 g/dL (3.4-5.0) Albumin/Globulin Ratio 0.8 (1.0-1.7) Test 04/20/17 11:17 Glucose (Fingerstick) 86 mg/dL (70-99) Images Images PROCEDURE: VEIN MAP UPPER EXT BILATERAL Bilateral upper extremity vein mapping, 04/20/2017: History: AV fistula planning Grayscale evaluation of the basilic and cephalic veins was performed as requested. On the right, the basilic vein is patent measuring 4.3 to 6.2 mm in diameter in the upper arm. In the forearm it measures 1.9 to 2.9 mm. The right cephalic vein in the upper arm measures 1.8 to 5.3 mm. In the forearm it measure 1.4 to 2.0 mm. On the left, the basilic vein in the upper arm is patent measuring 3.8 to 7.8 mm. In the forearm it measures 2.8 mm. The left cephalic vein in the upper arm measures 2.5 to 3.0 mm. In the forearm it measures 2.3 to 3.3 mm. IMPRESSION: Patent cephalic and basilic veins bilaterally with measurements as described above and fully delineated on the technologist worksheet available in the [employer] PACS system. Assessment/Plan Assessment/Plan Assessment/Plan: 1. End-stage kidney disease on chronic hemodialysis in need of long-term dialysis access. Recent history of dialysis catheter infection. The patient is currently not on antibiotic therapy. However, she has experienced chills prior to admission as well as low-grade fevers ranging from 99-100 degrees since admission. She had blood cultures drawn upon admission and these are negative so far. We will consult Infectious Disease to assist with determining if the patient is ready for placement of an AV shunt. Results of the vein mapping have been reviewed by Dr. Radha Tran and the patient is not a candidate for AV fistula. This correlates with the patient's history as she told me she would need a shunt for any additional dialysis access. Therefore, will need to ensure the patient is cleared from an infectious process before a new dialysis graft will be placed. We will anticipate placement of an AV graft into the right upper arm. Right arm restrictions have already been initiated on this patient for no IV sticks or phlebotomy. 2. Hypertensive urgency upon admission. Resolved with medication therapy. 3. Nausea and vomiting. Improving. The patient's diet has been advanced from clear liquids to soft diet today. Thank you for the opportunity to participate in the care of this patient. We will continue to follow along and look towards Infectious Disease to provide clearance for the timing of placement of an AV shunt in regards to her history of infected dialysis catheters and current low-grade fevers since admission. I have reviewed this case with Dr. Radha Tran and she or a partner will provide further recommendations as needed. HENRY MARROQUIN APRN Apr 20, 2017 15:22
--- NOTE | 2017-04-20 15:38 | PDOC ---
G I PROGRESS NOTE Subjective NO nausea since this morning. No complaints currently. Physical Exam Lungs clear. RRR Abdomen soft, not tender nor distended. Review of Relevant I have reviewed the following items dorina (where applicable) has been applied. Labs Laboratory Tests Test 04/18/17 16:51 04/18/17 20:34 04/19/17 05:40 04/19/17 07:50 Glucose (Fingerstick) 97 mg/dL (70-99) 119 mg/dL (70-99) 102 mg/dL (70-99) White Blood Count 5.5 x10^3/uL (4.0-11.0) Red Blood Count 3.32 x10^6/uL (3.50-5.40) Hemoglobin 10.0 g/dL (12.0-15.5) Hematocrit 29.5 % (36.0-47.0) Mean Corpuscular Volume 89 fL (79-100) Mean Corpuscular Hemoglobin 30 pg (25-35) Mean Corpuscular Hemoglobin Concent 34 g/dL (31-37) Red Cell Distribution Width 15.9 % (11.5-14.5) Platelet Count 120 x10^3/uL (140-400) Neutrophils (%) (Auto) 60 % (31-73) Lymphocytes (%) (Auto) 24 % (24-48) Monocytes (%) (Auto) 9 % (0-9) Eosinophils (%) (Auto) 6 % (0-3) Basophils (%) (Auto) 1 % (0-3) Neutrophils # (Auto) 3.3 x10^3uL (1.8-7.7) Lymphocytes # (Auto) 1.3 x10^3/uL (1.0-4.8) Monocytes # (Auto) 0.5 x10^3/uL (0.0-1.1) Eosinophils # (Auto) 0.3 x10^3/uL (0.0-0.7) Basophils # (Auto) 0.0 x10^3/uL (0.0-0.2) Sodium Level 139 mmol/L (136-145) Potassium Level 4.2 mmol/L (3.5-5.1) Chloride Level 101 mmol/L (98-107) Carbon Dioxide Level 27 mmol/L (21-32) Anion Gap 11 (6-14) Blood Urea Nitrogen 16 mg/dL (7-20) Creatinine 6.0 mg/dL (0.6-1.0) Estimated GFR (Cockcroft-Gault) 8.4 BUN/Creatinine Ratio 3 (6-20) Glucose Level 98 mg/dL (70-99) Calcium Level 9.5 mg/dL (8.5-10.1) Total Bilirubin 0.5 mg/dL (0.2-1.0) Direct Bilirubin 0.2 mg/dL (0.0-0.2) Aspartate Amino Transf (AST/SGOT) 19 U/L (15-37) Alanine Aminotransferase (ALT/SGPT) 8 U/L (14-59) Alkaline Phosphatase 93 U/L (46-116) Total Protein 7.4 g/dL (6.4-8.2) Albumin 3.4 g/dL (3.4-5.0) Albumin/Globulin Ratio 0.9 (1.0-1.7) Lipase 281 U/L (73-393) Test 04/19/17 11:55 04/19/17 16:16 04/19/17 20:40 04/20/17 04:50 Glucose (Fingerstick) 96 mg/dL (70-99) 80 mg/dL (70-99) 93 mg/dL (70-99) White Blood Count 6.1 x10^3/uL (4.0-11.0) Red Blood Count 3.14 x10^6/uL (3.50-5.40) Hemoglobin 9.5 g/dL (12.0-15.5) Hematocrit 28.5 % (36.0-47.0) Mean Corpuscular Volume 91 fL (79-100) Mean Corpuscular Hemoglobin 30 pg (25-35) Mean Corpuscular Hemoglobin Concent 33 g/dL (31-37) Red Cell Distribution Width 15.3 % (11.5-14.5) Platelet Count 109 x10^3/uL (140-400) Neutrophils (%) (Auto) 52 % (31-73) Lymphocytes (%) (Auto) 31 % (24-48) Monocytes (%) (Auto) 9 % (0-9) Eosinophils (%) (Auto) 8 % (0-3) Basophils (%) (Auto) 1 % (0-3) Neutrophils # (Auto) 3.2 x10^3uL (1.8-7.7) Lymphocytes # (Auto) 1.9 x10^3/uL (1.0-4.8) Monocytes # (Auto) 0.5 x10^3/uL (0.0-1.1) Eosinophils # (Auto) 0.5 x10^3/uL (0.0-0.7) Basophils # (Auto) 0.0 x10^3/uL (0.0-0.2) Sodium Level 137 mmol/L (136-145) Potassium Level 4.1 mmol/L (3.5-5.1) Chloride Level 102 mmol/L (98-107) Carbon Dioxide Level 26 mmol/L (21-32) Anion Gap 9 (6-14) Blood Urea Nitrogen 26 mg/dL (7-20) Creatinine 8.0 mg/dL (0.6-1.0) Estimated GFR (Cockcroft-Gault) 6.0 BUN/Creatinine Ratio 3 (6-20) Glucose Level 97 mg/dL (70-99) Calcium Level 8.7 mg/dL (8.5-10.1) Total Bilirubin 0.4 mg/dL (0.2-1.0) Aspartate Amino Transf (AST/SGOT) 19 U/L (15-37) Alanine Aminotransferase (ALT/SGPT) 8 U/L (14-59) Alkaline Phosphatase 79 U/L (46-116) Total Protein 7.4 g/dL (6.4-8.2) Albumin 3.2 g/dL (3.4-5.0) Albumin/Globulin Ratio 0.8 (1.0-1.7) Test 04/20/17 07:19 04/20/17 11:17 Glucose (Fingerstick) 98 mg/dL (70-99) 86 mg/dL (70-99) Laboratory Tests Test 04/19/17 16:16 04/19/17 20:40 04/20/17 04:50 04/20/17 07:19 Glucose (Fingerstick) 80 mg/dL (70-99) 93 mg/dL (70-99) 98 mg/dL (70-99) White Blood Count 6.1 x10^3/uL (4.0-11.0) Red Blood Count 3.14 x10^6/uL (3.50-5.40) Hemoglobin 9.5 g/dL (12.0-15.5) Hematocrit 28.5 % (36.0-47.0) Mean Corpuscular Volume 91 fL (79-100) Mean Corpuscular Hemoglobin 30 pg (25-35) Mean Corpuscular Hemoglobin Concent 33 g/dL (31-37) Red Cell Distribution Width 15.3 % (11.5-14.5) Platelet Count 109 x10^3/uL (140-400) Neutrophils (%) (Auto) 52 % (31-73) Lymphocytes (%) (Auto) 31 % (24-48) Monocytes (%) (Auto) 9 % (0-9) Eosinophils (%) (Auto) 8 % (0-3) Basophils (%) (Auto) 1 % (0-3) Neutrophils # (Auto) 3.2 x10^3uL (1.8-7.7) Lymphocytes # (Auto) 1.9 x10^3/uL (1.0-4.8) Monocytes # (Auto) 0.5 x10^3/uL (0.0-1.1) Eosinophils # (Auto) 0.5 x10^3/uL (0.0-0.7) Basophils # (Auto) 0.0 x10^3/uL (0.0-0.2) Sodium Level 137 mmol/L (136-145) Potassium Level 4.1 mmol/L (3.5-5.1) Chloride Level 102 mmol/L (98-107) Carbon Dioxide Level 26 mmol/L (21-32) Anion Gap 9 (6-14) Blood Urea Nitrogen 26 mg/dL (7-20) Creatinine 8.0 mg/dL (0.6-1.0) Estimated GFR (Cockcroft-Gault) 6.0 BUN/Creatinine Ratio 3 (6-20) Glucose Level 97 mg/dL (70-99) Calcium Level 8.7 mg/dL (8.5-10.1) Total Bilirubin 0.4 mg/dL (0.2-1.0) Aspartate Amino Transf (AST/SGOT) 19 U/L (15-37) Alanine Aminotransferase (ALT/SGPT) 8 U/L (14-59) Alkaline Phosphatase 79 U/L (46-116) Total Protein 7.4 g/dL (6.4-8.2) Albumin 3.2 g/dL (3.4-5.0) Albumin/Globulin Ratio 0.8 (1.0-1.7) Test 04/20/17 11:17 Glucose (Fingerstick) 86 mg/dL (70-99) Microbiology 04/18/17 Blood Culture - Preliminary, Resulted NO GROWTH AFTER 2 DAYS Medications Vitals/I & O Vital Sign - Last 24 Hours 04/19/17 04/19/17 04/19/17 04/19/17 17:15 19:00 20:15 21:27 Temp 99.0 99.0 Pulse 64 61 61 Resp 20 B/P (MAP) 150/83 166/71 (102) 166/71 Pulse Ox 99 O2 Delivery Room Air Room Air 04/19/17 04/20/17 04/20/17 04/20/17 23:00 03:13 07:15 07:30 Temp 100.0 97.9 97.9 100.0 97.9 97.9 Pulse 72 68 53 Resp 20 20 18 B/P (MAP) 152/75 (100) 159/55 (89) 183/76 (111) Pulse Ox 97 98 98 O2 Delivery Room Air Room Air Room Air Room Air 04/20/17 04/20/17 04/20/17 04/20/17 08:29 08:29 08:29 10:30 Temp 98.1 98.1 Pulse 53 53 53 64 Resp 18 B/P (MAP) 183/76 183/76 183/76 182/72 (108) Pulse Ox 96 O2 Delivery Room Air 04/20/17 04/20/17 04/20/17 14:30 14:30 14:30 Temp 97.5 97.5 Pulse 71 72 69 Resp 18 B/P (MAP) 169/82 (111) 184/76 (112) 174/80 (111) Pulse Ox 100 O2 Delivery Room Air Intake and Output 04/19/17 04/19/17 04/20/17 15:00 23:00 07:00 Intake Total 500 ml 240 ml Balance 500 ml 240 ml Problem List Problems Medical Problems: (1) R11.0 Status: Acute Assessment Abdominal pain, nausea, improved. Plan of Care: Continue current Tx, Mgmt STEFAN PARKER MD 31, 2017 15:38
[2017-04-20 19:10] VITALS: BP 149/84
[2017-04-20] MEDS: LATANOPROST 0.005% OPHTH SOLUTION 2.5ML BOTTLE. OU SCH (20:53)
[2017-04-20] MEDS: ZOLPIDEM 5 MG TABLET. PO PRN (20:57)
[2017-04-20 22:31] VITALS: BP 150/85
[2017-04-21 03:33] VITALS: BP 153/78
[2017-04-21 04:48] LABS: BASO % 1 % (0-3); EOS % 6 % (0-3); HEMATOCRIT 31.6 % (36.0-47.0); HEMOGLOBIN 10.7 g/dL (12.0-15.5); LYMPH # 1.5 x10^3/uL (1.0-4.8); LYMPH % 27 % (24-48); MEAN CORPUSCULAR HEMOGLOBIN 30 pg (25-35); MEAN CORPUSCULAR HGB CONC 34 g/dL (31-37); MEAN CORPUSCULAR VOLUME 90 fL (79-100); MONO % 9 % (0-9); NEUT % 57 % (31-73); PLATELET COUNT 119 x10^3/uL (140-400); RED BLOOD COUNT 3.51 x10^6/uL (3.50-5.40); RED CELL DISTRIBUTION WIDTH 15.5 % (11.5-14.5); WHITE BLOOD COUNT 5.5 x10^3/uL (4.0-11.0)
[2017-04-21 05:06] LABS: ALBUMIN 3.3 g/dL (3.4-5.0); ALBUMIN/GLOBULIN RATIO 0.7 (1.0-1.7); CALCIUM 8.9 mg/dL (8.5-10.1); GFR 10.4; MAGNESIUM 1.9 mg/dL (1.8-2.4); PHOSPHORUS 2.7 mg/dL (2.6-4.7); POTASSIUM 4.1 mmol/L (3.5-5.1); TOTAL BILIRUBIN 0.4 mg/dL (0.2-1.0); TOTAL PROTEIN 7.9 g/dL (6.4-8.2)
[2017-04-21] MEDS: PANTOPRAZOLE 40 MG TABLET.DR. PO SCH (06:02)
[2017-04-21] MEDS: SUCRALFATE 1 GM TABLET. PO SCH ×3 (06:02→16:53)
[2017-04-21] MEDS ORDERED: ONDANSETRON PF 4 MG/2 ML VIAL. IV PRN (07:00)
[2017-04-21] MEDS ORDERED: PROCHLORPERAZINE 10 MG/2 ML VIAL. IV PRN (07:00)
[2017-04-21] MEDS ORDERED: LIDOCAINE 1% 1 ML SYRINGE. ID PRN (07:00)
[2017-04-21 07:37] VITALS: BP 137/76
[2017-04-21] MEDS ORDERED: IV NORMAL SALINE 1000ML BAG 1,000 ML IV SCH (07:45)
[2017-04-21] MEDS: CARVEDILOL 12.5 MG TABLET. PO SCH ×3 (08:00→16:54)
[2017-04-21] MEDS: SEVELAMER CARBONATE 800 MG TABLET. PO SCH ×3 (08:00→16:53)
[2017-04-21] MEDS: POLYETHYLENE GLYCOL 3350 17 GM PACKET. PO SCH ×3 (09:00→21:00)
--- NOTE | 2017-04-21 09:28 | PDOC ---
PROGRESS NOTES Subjective Subjective no new problems Objective Objective Vital Signs Date Time Temp Pulse Resp B/P (MAP) Pulse Ox O2 Delivery O2 Flow Rate FiO2 04/21/17 07:56 Room Air 04/21/17 07:37 98.6 65 18 137/76 (96) 98 98.6 Intake and Output 04/21/17 07:00 Intake Total 490 ml Balance 490 ml Intake Oral 490 ml Physical Exam Abdomen: Normal bowel sounds, Soft, No tenderness Heart: Regular rate, Normal S1, Normal S2, No murmurs Extremities: No edema, Normal pulses General: Alert, Oriented X3, Cooperative, No acute distress HEENT: Atraumatic, PERRLA Lungs: Clear to auscultation, Normal air movement MUSCULOSKELETAL: No deformity, No swelling Neck: Supple Neuro: Normal speech Psych/Mental Status: Mental status NL Skin: No rashes, Other (Notable subcutaneous right forearm dialysis access without bruit or thrill. IV access to left neck. Dialysis catheter located in right lower chest.) Diagnosis Problem List Problems Medical Problems: (1) R11.0 Status: Acute Assessment Assessment 1.Pancreatitis,?Gall stones gravel. 2. hypertensive urgency 3. ESRD HD 3times weekly 4. chills without fever 5. diastolic CHF EF normal not acute 6. GERD 7. glaucoma 8. moderate weakness and debility 9. moderate chronic weakness and debility 10. thrombocytopenia PLAN:going for AV shunt today blood c/s neg. amylase +lipase elevate today,clinically soft abdomen vomiting improved CT abdomen/pelvis wo contrast -small gal stones gravel, stable renal mass rt kidney 3,6 cm from 2010, uterine fibroid+ Abd sono- neg Problems: Plan Plan of Care Problems Medical Problems: (1) R11.0 Status: Acute Comment Review of Relevant I have reviewed the following items dorina (where applicable) has been applied. Labs Laboratory Tests Test 04/20/17 11:17 04/20/17 20:41 04/21/17 03:50 04/21/17 07:39 Glucose (Fingerstick) 86 mg/dL (70-99) 135 mg/dL (70-99) 94 mg/dL (70-99) White Blood Count 5.5 x10^3/uL (4.0-11.0) Red Blood Count 3.51 x10^6/uL (3.50-5.40) Hemoglobin 10.7 g/dL (12.0-15.5) Hematocrit 31.6 % (36.0-47.0) Mean Corpuscular Volume 90 fL (79-100) Mean Corpuscular Hemoglobin 30 pg (25-35) Mean Corpuscular Hemoglobin Concent 34 g/dL (31-37) Red Cell Distribution Width 15.5 % (11.5-14.5) Platelet Count 119 x10^3/uL (140-400) Neutrophils (%) (Auto) 57 % (31-73) Lymphocytes (%) (Auto) 27 % (24-48) Monocytes (%) (Auto) 9 % (0-9) Eosinophils (%) (Auto) 6 % (0-3) Basophils (%) (Auto) 1 % (0-3) Neutrophils # (Auto) 3.1 x10^3uL (1.8-7.7) Lymphocytes # (Auto) 1.5 x10^3/uL (1.0-4.8) Monocytes # (Auto) 0.5 x10^3/uL (0.0-1.1) Eosinophils # (Auto) 0.3 x10^3/uL (0.0-0.7) Basophils # (Auto) 0.0 x10^3/uL (0.0-0.2) Sodium Level 137 mmol/L (136-145) Potassium Level 4.1 mmol/L (3.5-5.1) Chloride Level 98 mmol/L (98-107) Carbon Dioxide Level 30 mmol/L (21-32) Anion Gap 9 (6-14) Blood Urea Nitrogen 14 mg/dL (7-20) Creatinine 5.0 mg/dL (0.6-1.0) Estimated GFR (Cockcroft-Gault) 10.4 BUN/Creatinine Ratio 3 (6-20) Glucose Level 95 mg/dL (70-99) Calcium Level 8.9 mg/dL (8.5-10.1) Phosphorus Level 2.7 mg/dL (2.6-4.7) Magnesium Level 1.9 mg/dL (1.8-2.4) Total Bilirubin 0.4 mg/dL (0.2-1.0) Aspartate Amino Transf (AST/SGOT) 15 U/L (15-37) Alanine Aminotransferase (ALT/SGPT) 10 U/L (14-59) Alkaline Phosphatase 89 U/L (46-116) Total Protein 7.9 g/dL (6.4-8.2) Albumin 3.3 g/dL (3.4-5.0) Albumin/Globulin Ratio 0.7 (1.0-1.7) Amylase Level 227 U/L (25-115) Lipase 585 U/L (73-393) Microbiology 04/18/17 Blood Culture - Preliminary, Resulted NO GROWTH AFTER 3 DAYS Medications Current Medications Enoxaparin Sodium (Lovenox 30mg Syringe) 30 mg 1X ONCE SQ Last administered on 04/20/17 11:59; Start 04/20/17 at 10:00; Stop 04/20/17 at 10:01; Status DC Info (PHARMACY MONITORING -- do not chart) 1 each PRN DAILY PRN MC SEE COMMENTS ; Start 04/20/17 at 15:00 Lidocaine HCl 2 ml PRN 1X PRN ID PRIOR TO IV START; Start 04/21/17 at 07:00; Stop 04/22/17 at 06:59 Magnesium Sulfate/ Dextrose 50 ml @ 25 mls/hr PRN DAILY PRN IV for Mag < 1.7 on am labs; Start 04/20/17 at 11:45 Ondansetron HCl (Zofran) 4 mg PRN Q6HRS PRN IV NAUSEA/VOMITING; Start 04/21/17 at 07:00; Stop 04/22/17 at 06:59 Polyethylene Glycol (miraLAX PACKET) 17 gm TID PO Last administered on 20:52; Start 04/20/17 at 14:00 Prochlorperazine Edisylate (Compazine) 5 mg PACU PRN PRN IV NAUSEA, MRX1; Start 04/21/17 at 07:00; Stop 04/22/17 at 06:59 Sodium Chloride 1,000 ml @ 0 mls/hr Q0M IV ; Start 04/21/17 at 07:45 Sodium Chloride 1,000 ml @ 1,000 mls/hr Q1H PRN IV hypotension; Start 04/20/17 at 15:00; Stop 04/20/17 at 20:59; Status DC Sodium Chloride (Normal Saline Flush) 10 ml 1X PRN PRN IV AP catheter pack; Start 04/20/17 at 15:00; Stop 04/21/17 at 14:59 Sodium Chloride (Normal Saline Flush) 10 ml 1X PRN PRN IV 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 MACHINE TENDER catheter pack; Start 04/20/17 at 15:00; Stop 04/21/17 at 14:59 Vitals/I & O Vital Sign - Last 24 Hours 04/20/17 04/20/17 04/20/17 04/20/17 10:30 14:30 14:30 14:30 Temp 98.1 97.5 98.1 97.5 Pulse 64 71 72 69 Resp 18 18 B/P (MAP) 182/72 (108) 169/82 (111) 184/76 (112) 174/80 (111) Pulse Ox 96 100 O2 Delivery Room Air Room Air 04/20/17 04/20/17 04/20/17 04/20/17 18:36 19:10 20:00 20:56 Temp 98.3 98.3 Pulse 64 59 55 Resp 18 B/P (MAP) 156/72 149/84 (105) 128/63 Pulse Ox 99 O2 Delivery Room Air Room Air 04/20/17 04/21/17 04/21/17 04/21/17 22:31 03:33 07:37 07:56 Temp 98.6 97.7 98.6 98.6 97.7 98.6 Pulse 64 64 65 Resp 16 16 18 B/P (MAP) 150/85 (106) 153/78 (103) 137/76 (96) Pulse Ox 99 99 98 O2 Delivery Room Air Room Air Room Air Room Air Intake and Output 04/20/17 04/20/17 04/21/17 15:00 23:00 07:00 Intake Total 270 ml 100 ml 120 ml Balance 270 ml 100 ml 120 ml YARY FAIRCHILD MD Apr 21, 2017 09:28
--- NOTE | 2017-04-21 10:17 | PDOC ---
SUBJECTIVE ROS ESRD doign and feelinga litte better today; had a Small BM CVS: no Orthopnea, no CP RESP: no SOB, no GRACE GI: min Nausea, no Vomiting : no Dysuria, no Urgency OBJECTIVE Vital Signs Vital Signs Date Time Temp Pulse Resp B/P (MAP) Pulse Ox O2 Delivery O2 Flow Rate FiO2 04/21/17 07:56 Room Air 04/21/17 07:37 98.6 65 18 137/76 (96) 98 98.6 I & 0 Intake and Output 04/21/17 07:00 Intake Total 490 ml Balance 490 ml Intake Oral 490 ml PHYSICAL EXAM Physical Exam GEN: Awake, Oriented x 3, In no distress EYES: Vision Unchanged, Conjunctiva Normal EN: No EN Drainage, Mucous Membranes moist NECK: no JVD, min JVP, Supple, no Thyromegaly CVS: S1S2, ? Murmur, No Gallop, No Rub,no Edema RESP: no Rales, no Rhonchi,no Acc. Muscle Use GI: BS + ve, NO Bruit, Non Tender, Non Distended : no CVA tenderness, no Suprapubic Tenderness DIAGNOSIS/ASSESSMENT Assessment & Plan After Review of available labs/ radiology as reported - following is my Assessment and Plan ESRD: Current fluid and E-lyte status does not necessitate emergent need for dialysis. Will re-evaluate for dialysis in the am and continue on MWF schedule. ANEMIA; Aranesp as ordered, Transfuse with next HD as needed HTN: Current BP meds as reviewed. See orders for changes. BONE & MINERAL: follow phos and alter binder regimen prn NV - Doubt Uremic per se - defer to GI to Eval and treat Discussed Plan of Care with pt at bedside Problems: COMMENT/RELEVANT DATA Meds Current Medications Medications (Trade) Dose Ordered Sig/Any Start Time Stop Time Status Last Admin Dose Admin Acetaminophen (Tylenol) 650 mg PRN Q6HRS PRN 04/17/17 19:45 04/19/17 23:23 650 MG Amlodipine Besylate (Norvasc) 10 mg DAILY 04/18/17 09:00 04/20/17 08:29 10 MG Carvedilol (Coreg) 12.5 mg BIDWMEALS 04/17/17 20:00 04/20/17 18:36 12.5 MG Cinacalcet (Sensipar) 30 mg DAILYWLUN 04/18/17 12:00 04/20/17 11:57 30 MG Ciprofloxacin (Cipro) 500 mg DAILY 04/18/17 09:00 04/18/17 09:00 DC Clonidine HCl (Catapres) 0.1 mg PRN Q2HR PRN 04/17/17 19:45 04/18/17 02:59 0.1 MG Diphenhydramine HCl (Benadryl) 25 mg 1X PRN PRN 04/18/17 07:45 04/19/17 07:44 DC Enoxaparin Sodium (Lovenox 30mg Syringe) 30 mg 1X ONCE 04/20/17 10:00 04/20/17 10:01 DC 04/20/17 11:59 30 MG Fentanyl Citrate (Fentanyl 2ml Vial) 25 mcg PRN Q3HRS PRN 04/17/17 19:45 Fluticasone Propionate (Flonase) 2 spray DAILY 04/18/17 09:00 04/20/17 08:29 2 SPRAY Hydralazine HCl (Apresoline) 10 mg PRN Q4HRS PRN 04/17/17 18:15 04/18/17 23:35 10 MG Info (PHARMACY MONITORING -- do not chart) 1 each PRN DAILY PRN 04/20/17 15:00 Latanoprost (Xalatan) 1 drop QHS 04/17/17 21:00 04/20/17 20:53 1 DROP Lidocaine HCl 2 ml PRN 1X PRN 04/21/17 07:00 04/22/17 06:59 Lisinopril (Prinivil) 40 mg BID 04/17/17 21:00 04/20/17 20:56 40 MG Magnesium Sulfate/ Dextrose 50 ml @ 25 mls/hr PRN DAILY PRN 04/20/17 11:45 Ondansetron HCl (Zofran) 4 mg PRN Q6HRS PRN 04/21/17 07:00 04/22/17 06:59 Pantoprazole Sodium (Protonix) 40 mg DAILYAC 04/17/17 22:00 04/21/17 06:02 40 MG Polyethylene Glycol (miraLAX PACKET) 17 gm TID 04/20/17 14:00 04/20/17 20:52 17 GM Prochlorperazine Edisylate (Compazine) 5 mg PACU PRN PRN 04/21/17 07:00 04/22/17 06:59 Sevelamer Carbonate (Renvela) 800 mg TIDWMEALS 04/17/17 20:00 04/20/17 18:35 800 MG Sodium Chloride (Normal Saline Flush) 10 ml 1X PRN PRN 04/20/17 15:00 04/21/17 14:59 Sucralfate (Carafate) 1 gm TIDAC 04/18/17 07:30 04/21/17 06:02 1 GM Vitamin B Complex/ Vitamin C (Evelyn-Elsa) 1 tab DAILY 04/18/17 09:00 04/20/17 08:28 1 TAB Zolpidem Tartrate (Ambien) 5 mg PRN QHS PRN 04/17/17 19:45 04/20/17 20:57 5 MG Lab Laboratory Tests Test 04/20/17 11:17 04/20/17 20:41 04/21/17 03:50 04/21/17 07:39 Glucose (Fingerstick) 86 mg/dL (70-99) 135 mg/dL (70-99) 94 mg/dL (70-99) White Blood Count 5.5 x10^3/uL (4.0-11.0) Red Blood Count 3.51 x10^6/uL (3.50-5.40) Hemoglobin 10.7 g/dL (12.0-15.5) Hematocrit 31.6 % (36.0-47.0) Mean Corpuscular Volume 90 fL (79-100) Mean Corpuscular Hemoglobin 30 pg (25-35) Mean Corpuscular Hemoglobin Concent 34 g/dL (31-37) Red Cell Distribution Width 15.5 % (11.5-14.5) Platelet Count 119 x10^3/uL (140-400) Neutrophils (%) (Auto) 57 % (31-73) Lymphocytes (%) (Auto) 27 % (24-48) Monocytes (%) (Auto) 9 % (0-9) Eosinophils (%) (Auto) 6 % (0-3) Basophils (%) (Auto) 1 % (0-3) Neutrophils # (Auto) 3.1 x10^3uL (1.8-7.7) Lymphocytes # (Auto) 1.5 x10^3/uL (1.0-4.8) Monocytes # (Auto) 0.5 x10^3/uL (0.0-1.1) Eosinophils # (Auto) 0.3 x10^3/uL (0.0-0.7) Basophils # (Auto) 0.0 x10^3/uL (0.0-0.2) Sodium Level 137 mmol/L (136-145) Potassium Level 4.1 mmol/L (3.5-5.1) Chloride Level 98 mmol/L (98-107) Carbon Dioxide Level 30 mmol/L (21-32) Anion Gap 9 (6-14) Blood Urea Nitrogen 14 mg/dL (7-20) Creatinine 5.0 mg/dL (0.6-1.0) Estimated GFR (Cockcroft-Gault) 10.4 BUN/Creatinine Ratio 3 (6-20) Glucose Level 95 mg/dL (70-99) Calcium Level 8.9 mg/dL (8.5-10.1) Phosphorus Level 2.7 mg/dL (2.6-4.7) Magnesium Level 1.9 mg/dL (1.8-2.4) Total Bilirubin 0.4 mg/dL (0.2-1.0) Aspartate Amino Transf (AST/SGOT) 15 U/L (15-37) Alanine Aminotransferase (ALT/SGPT) 10 U/L (14-59) Alkaline Phosphatase 89 U/L (46-116) Total Protein 7.9 g/dL (6.4-8.2) Albumin 3.3 g/dL (3.4-5.0) Albumin/Globulin Ratio 0.7 (1.0-1.7) Amylase Level 227 U/L (25-115) Lipase 585 U/L (73-393) FRANCOIS IBARRA MD Apr 21, 2017 10:17
[2017-04-21 10:40] VITALS: BP_SYST 136; BP_SYST 166; BP_SYST 186; BP_DIAS 72; BP_DIAS 74; BP_DIAS 89
[2017-04-21] MEDS: ONDANSETRON PF 4 MG/2 ML VIAL. IV PRN (10:45)
[2017-04-21] MEDS: CINACALCET HCL 30 MG TABLET PO SCH (11:50)
[2017-04-21] MEDS: amLODIPine BESYLATE 10 MG TABLET PO SCH (11:50)
[2017-04-21] MEDS: FOLIC/VIT B COMP W-C (RENAL) TABLET. PO SCH (11:50)
[2017-04-21] MEDS: FLUTICASONE 50MCG/NASAL SPRAY 16GM BOTTLE. NS SCH (11:51)
[2017-04-21] MEDS: LISINOPRIL 40 MG TABLET. PO SCH ×2 (11:51→20:17)
--- NOTE | 2017-04-21 12:22 | PDOC ---
Provider Note Provider Note Vascular F/U Consult done by ANP yesterday and agree with assessmwnt and plan 2+ lt brachial pulse, nice lt AC vein Plan Access plan for later unless Dr. Tran can do tomorrow STEFAN MARROQUIN MD Apr 21, 2017 12:22
[2017-04-21 14:30] VITALS: BP 149/82
--- NOTE | 2017-04-21 15:28 | PDOC ---
G I PROGRESS NOTE Reason for Follow-up Pancreatitis/abd pain Subjective Nausea persists Physical Exam Lungs clear CV S1 S2 ABD +BS, soft, mild tenderness to palpation Review of Relevant I have reviewed the following items dorina (where applicable) has been applied. Labs Laboratory Tests Test 04/19/17 16:16 04/19/17 20:40 04/20/17 04:50 04/20/17 07:19 Glucose (Fingerstick) 80 mg/dL (70-99) 93 mg/dL (70-99) 98 mg/dL (70-99) White Blood Count 6.1 x10^3/uL (4.0-11.0) Red Blood Count 3.14 x10^6/uL (3.50-5.40) Hemoglobin 9.5 g/dL (12.0-15.5) Hematocrit 28.5 % (36.0-47.0) Mean Corpuscular Volume 91 fL (79-100) Mean Corpuscular Hemoglobin 30 pg (25-35) Mean Corpuscular Hemoglobin Concent 33 g/dL (31-37) Red Cell Distribution Width 15.3 % (11.5-14.5) Platelet Count 109 x10^3/uL (140-400) Neutrophils (%) (Auto) 52 % (31-73) Lymphocytes (%) (Auto) 31 % (24-48) Monocytes (%) (Auto) 9 % (0-9) Eosinophils (%) (Auto) 8 % (0-3) Basophils (%) (Auto) 1 % (0-3) Neutrophils # (Auto) 3.2 x10^3uL (1.8-7.7) Lymphocytes # (Auto) 1.9 x10^3/uL (1.0-4.8) Monocytes # (Auto) 0.5 x10^3/uL (0.0-1.1) Eosinophils # (Auto) 0.5 x10^3/uL (0.0-0.7) Basophils # (Auto) 0.0 x10^3/uL (0.0-0.2) Sodium Level 137 mmol/L (136-145) Potassium Level 4.1 mmol/L (3.5-5.1) Chloride Level 102 mmol/L (98-107) Carbon Dioxide Level 26 mmol/L (21-32) Anion Gap 9 (6-14) Blood Urea Nitrogen 26 mg/dL (7-20) Creatinine 8.0 mg/dL (0.6-1.0) Estimated GFR (Cockcroft-Gault) 6.0 BUN/Creatinine Ratio 3 (6-20) Glucose Level 97 mg/dL (70-99) Calcium Level 8.7 mg/dL (8.5-10.1) Total Bilirubin 0.4 mg/dL (0.2-1.0) Aspartate Amino Transf (AST/SGOT) 19 U/L (15-37) Alanine Aminotransferase (ALT/SGPT) 8 U/L (14-59) Alkaline Phosphatase 79 U/L (46-116) Total Protein 7.4 g/dL (6.4-8.2) Albumin 3.2 g/dL (3.4-5.0) Albumin/Globulin Ratio 0.8 (1.0-1.7) Test 04/20/17 11:17 04/20/17 20:41 04/21/17 03:50 04/21/17 07:39 Glucose (Fingerstick) 86 mg/dL (70-99) 135 mg/dL (70-99) 94 mg/dL (70-99) White Blood Count 5.5 x10^3/uL (4.0-11.0) Red Blood Count 3.51 x10^6/uL (3.50-5.40) Hemoglobin 10.7 g/dL (12.0-15.5) Hematocrit 31.6 % (36.0-47.0) Mean Corpuscular Volume 90 fL (79-100) Mean Corpuscular Hemoglobin 30 pg (25-35) Mean Corpuscular Hemoglobin Concent 34 g/dL (31-37) Red Cell Distribution Width 15.5 % (11.5-14.5) Platelet Count 119 x10^3/uL (140-400) Neutrophils (%) (Auto) 57 % (31-73) Lymphocytes (%) (Auto) 27 % (24-48) Monocytes (%) (Auto) 9 % (0-9) Eosinophils (%) (Auto) 6 % (0-3) Basophils (%) (Auto) 1 % (0-3) Neutrophils # (Auto) 3.1 x10^3uL (1.8-7.7) Lymphocytes # (Auto) 1.5 x10^3/uL (1.0-4.8) Monocytes # (Auto) 0.5 x10^3/uL (0.0-1.1) Eosinophils # (Auto) 0.3 x10^3/uL (0.0-0.7) Basophils # (Auto) 0.0 x10^3/uL (0.0-0.2) Sodium Level 137 mmol/L (136-145) Potassium Level 4.1 mmol/L (3.5-5.1) Chloride Level 98 mmol/L (98-107) Carbon Dioxide Level 30 mmol/L (21-32) Anion Gap 9 (6-14) Blood Urea Nitrogen 14 mg/dL (7-20) Creatinine 5.0 mg/dL (0.6-1.0) Estimated GFR (Cockcroft-Gault) 10.4 BUN/Creatinine Ratio 3 (6-20) Glucose Level 95 mg/dL (70-99) Calcium Level 8.9 mg/dL (8.5-10.1) Phosphorus Level 2.7 mg/dL (2.6-4.7) Magnesium Level 1.9 mg/dL (1.8-2.4) Total Bilirubin 0.4 mg/dL (0.2-1.0) Aspartate Amino Transf (AST/SGOT) 15 U/L (15-37) Alanine Aminotransferase (ALT/SGPT) 10 U/L (14-59) Alkaline Phosphatase 89 U/L (46-116) Total Protein 7.9 g/dL (6.4-8.2) Albumin 3.3 g/dL (3.4-5.0) Albumin/Globulin Ratio 0.7 (1.0-1.7) Amylase Level 227 U/L (25-115) Lipase 585 U/L (73-393) Test 04/21/17 11:30 Glucose (Fingerstick) 79 mg/dL (70-99) Laboratory Tests Test 04/20/17 20:41 04/21/17 03:50 04/21/17 07:39 04/21/17 11:30 Glucose (Fingerstick) 135 mg/dL (70-99) 94 mg/dL (70-99) 79 mg/dL (70-99) White Blood Count 5.5 x10^3/uL (4.0-11.0) Red Blood Count 3.51 x10^6/uL (3.50-5.40) Hemoglobin 10.7 g/dL (12.0-15.5) Hematocrit 31.6 % (36.0-47.0) Mean Corpuscular Volume 90 fL (79-100) Mean Corpuscular Hemoglobin 30 pg (25-35) Mean Corpuscular Hemoglobin Concent 34 g/dL (31-37) Red Cell Distribution Width 15.5 % (11.5-14.5) Platelet Count 119 x10^3/uL (140-400) Neutrophils (%) (Auto) 57 % (31-73) Lymphocytes (%) (Auto) 27 % (24-48) Monocytes (%) (Auto) 9 % (0-9) Eosinophils (%) (Auto) 6 % (0-3) Basophils (%) (Auto) 1 % (0-3) Neutrophils # (Auto) 3.1 x10^3uL (1.8-7.7) Lymphocytes # (Auto) 1.5 x10^3/uL (1.0-4.8) Monocytes # (Auto) 0.5 x10^3/uL (0.0-1.1) Eosinophils # (Auto) 0.3 x10^3/uL (0.0-0.7) Basophils # (Auto) 0.0 x10^3/uL (0.0-0.2) Sodium Level 137 mmol/L (136-145) Potassium Level 4.1 mmol/L (3.5-5.1) Chloride Level 98 mmol/L (98-107) Carbon Dioxide Level 30 mmol/L (21-32) Anion Gap 9 (6-14) Blood Urea Nitrogen 14 mg/dL (7-20) Creatinine 5.0 mg/dL (0.6-1.0) Estimated GFR (Cockcroft-Gault) 10.4 BUN/Creatinine Ratio 3 (6-20) Glucose Level 95 mg/dL (70-99) Calcium Level 8.9 mg/dL (8.5-10.1) Phosphorus Level 2.7 mg/dL (2.6-4.7) Magnesium Level 1.9 mg/dL (1.8-2.4) Total Bilirubin 0.4 mg/dL (0.2-1.0) Aspartate Amino Transf (AST/SGOT) 15 U/L (15-37) Alanine Aminotransferase (ALT/SGPT) 10 U/L (14-59) Alkaline Phosphatase 89 U/L (46-116) Total Protein 7.9 g/dL (6.4-8.2) Albumin 3.3 g/dL (3.4-5.0) Albumin/Globulin Ratio 0.7 (1.0-1.7) Amylase Level 227 U/L (25-115) Lipase 585 U/L (73-393) Microbiology 04/18/17 Blood Culture - Preliminary, Resulted NO GROWTH AFTER 3 DAYS Medications Current Medications Ondansetron HCl (Zofran) 4 mg 1X ONCE IV Last administered on 04/17/17 16:45 ; Start 04/17/17 at 16:45; Stop 04/17/17 at 16:46; Status DC Ondansetron HCl (Zofran) 4 mg PRN Q8HRS PRN IV NAUSEA/VOMITING Last administered on 04/17/17 17:26; Start 04/17/17 at 17:15; Stop 04/17/17 at 22:44 ; Status DC Hydralazine HCl (Apresoline) 10 mg PRN Q4HRS PRN IVP ELEVATED BP, SEE COMMENTS Last administered on 04/18/17 23:35; Start 04/17/17 at 18:15 Amlodipine Besylate (Norvasc) 10 mg DAILY PO Last administered on 04/21/17 11: 50; Start 04/18/17 at 09:00 Cinacalcet (Sensipar) 30 mg DAILYWLUN PO Last administered on 04/21/17 11:50; Start 04/18/17 at 12:00 Ciprofloxacin (Cipro) 500 mg DAILY PO ; Start 04/18/17 at 09:00; Stop 04/18/17 at 09:00; Status DC Clonidine HCl (Catapres) 0.1 mg PRN Q2HR PRN PO HYPERTENSION, SEE COMMENTS Last administered on 04/18/17 02:59; Start 04/17/17 at 19:45 Vitamin B Complex/ Vitamin C (Evelyn-Elsa) 1 tab DAILY PO Last administered on 11:50; Start 04/18/17 at 09:00 Latanoprost (Xalatan) 1 drop QHS OU Last administered on 04/20/17 20:53; Start 04/17/17 at 21:00 Lisinopril (Prinivil) 40 mg BID PO Last administered on 04/21/17 11:51; Start 04/17/17 at 21:00 Pantoprazole Sodium (Protonix) 40 mg DAILY07 PO ; Start 04/18/17 at 07:00; Stop 04/18/17 at 07:00; Status DC Sevelamer Carbonate (Renvela) 800 mg TIDWMEALS PO Last administered on 11:50; Start 04/17/17 at 20:00 Sucralfate (Carafate) 1 gm TIDAC PO Last administered on 04/21/17 11:50; Start 04/18/17 at 07:30 Zolpidem Tartrate (Ambien) 5 mg PRN QHS PRN PO INSOMNIA Last administered on 20:57; Start 04/17/17 at 19:45 Carvedilol (Coreg) 12.5 mg BIDWMEALS PO Last administered on 04/21/17 11:51; Start 04/17/17 at 20:00 Pantoprazole Sodium (Protonix) 40 mg DAILYAC PO ; Start 04/18/17 at 07:30; Stop 04/18/17 at 07:30; Status DC Fluticasone Propionate (Flonase) 2 spray DAILY NS Last administered on 11:51; Start 04/18/17 at 09:00 Fentanyl Citrate (Fentanyl 2ml Vial) 25 mcg PRN Q3HRS PRN IV PAIN; Start at 19:45 Acetaminophen (Tylenol) 650 mg PRN Q6HRS PRN PO PAIN Last administered on 23:23; Start 04/17/17 at 19:45 Pantoprazole Sodium (Protonix) 40 mg DAILYAC PO Last administered on 04/21/17 06:02; Start 04/17/17 at 22:00 Ondansetron HCl (Zofran) 4 mg PRN Q6HRS PRN IV NAUSEA/VOMITING Last administered on 04/18/17 08:04; Start 04/17/17 at 22:45; Stop 04/18/17 at 08:13 ; Status DC Sodium Chloride 1,000 ml @ 1,000 mls/hr Q1H PRN IV hypotension; Start 04/18/17 at 07:40; Stop 04/18/17 at 08:13; Status DC Diphenhydramine HCl (Benadryl) 25 mg 1X PRN PRN IV ITCHING; Start 04/18/17 at 07:45; Stop 04/19/17 at 07:44; Status DC Diphenhydramine HCl (Benadryl) 25 mg 1X PRN PRN IV ITCHING; Start 04/18/17 at 07:45; Stop 04/19/17 at 07:44; Status DC Sodium Chloride (Normal Saline Flush) 10 ml 1X PRN PRN IV AP catheter pack; Start 04/18/17 at 07:45; Stop 04/18/17 at 08:13; Status DC Sodium Chloride (Normal Saline Flush) 10 ml 1X PRN PRN IV JOB INTERVIEWER catheter pack; Start 04/18/17 at 07:45; Stop 04/18/17 at 08:13; Status DC Sodium Chloride 1,000 ml @ 400 mls/hr Q2H30M PRN IV PATENCY; Start 04/18/17 at 07:40; Stop 04/18/17 at 08:13; Status DC Info (PHARMACY MONITORING -- do not chart) 1 each PRN DAILY PRN MC SEE COMMENTS ; Start 04/18/17 at 07:45; Stop 04/21/17 at 14:38; Status DC Sodium Chloride (Normal Saline Flush) 10 ml 1X PRN PRN IV AP catheter pack; Start 04/18/17 at 08:15 Ondansetron HCl (Zofran) 4 mg PRN Q8HRS PRN IV NAUSEA/VOMITING Last administered on 04/21/17 10:45; Start 04/18/17 at 17:00 Enoxaparin Sodium (Lovenox 30mg Syringe) 30 mg 1X ONCE SQ Last administered on 04/20/17 11:59; Start 04/20/17 at 10:00; Stop 04/20/17 at 10:01; Status DC Polyethylene Glycol (miraLAX PACKET) 17 gm TID PO Last administered on 14:28; Start 04/20/17 at 14:00 Magnesium Sulfate/ Dextrose 50 ml @ 25 mls/hr PRN DAILY PRN IV for Mag < 1.7 on am labs; Start 04/20/17 at 11:45 Ondansetron HCl (Zofran) 4 mg PRN Q6HRS PRN IV NAUSEA/VOMITING; Start 04/21/17 at 07:00; Stop 04/22/17 at 06:59 Lidocaine HCl 2 ml PRN 1X PRN ID PRIOR TO IV START; Start 04/21/17 at 07:00; Stop 04/22/17 at 06:59 Prochlorperazine Edisylate (Compazine) 5 mg PACU PRN PRN IV NAUSEA, MRX1; Start 04/21/17 at 07:00; Stop 04/22/17 at 06:59 Sodium Chloride 1,000 ml @ 0 mls/hr Q0M IV ; Start 04/21/17 at 07:45 Sodium Chloride 1,000 ml @ 1,000 mls/hr Q1H PRN IV hypotension; Start 04/20/17 at 15:00; Stop 04/20/17 at 20:59; Status DC Sodium Chloride (Normal Saline Flush) 10 ml 1X PRN PRN IV AP catheter pack; Start 04/20/17 at 15:00; Stop 04/21/17 at 14:59; Status DC Sodium Chloride (Normal Saline Flush) 10 ml 1X PRN PRN IV [employer] catheter pack; Start 04/20/17 at 15:00; Stop 04/21/17 at 14:59; Status DC Info (PHARMACY MONITORING -- do not chart) 1 each PRN DAILY PRN MC SEE COMMENTS ; Start 04/20/17 at 15:00 Cefazolin Sodium/ Dextrose 50 ml @ 100 mls/hr 1X PREOP PRN IV preop; Start 04/22/17 at 06:00; Stop 04/22/17 at 18:00 Ondansetron HCl (Zofran) 4 mg PRN Q6HRS PRN IV NAUSEA/VOMITING; Start 04/22/17 at 07:00; Stop 04/23/17 at 06:59 Ringer's Solution 1,000 ml @ 30 mls/hr Q24H IV ; Start 04/22/17 at 07:00; Stop 04/22/17 at 18:59 Lidocaine HCl 2 ml PRN 1X PRN ID PRIOR TO IV START; Start 04/22/17 at 07:00; Stop 04/23/17 at 06:59 Prochlorperazine Edisylate (Compazine) 5 mg PACU PRN PRN IV NAUSEA, MRX1; Start 04/22/17 at 07:00; Stop 04/23/17 at 06:59 Active Scripts Active Zofran (Ondansetron Hcl) 4 Mg Tablet 1 Tab PO Q6HRS Reported Nexium Capsule (Esomeprazole Magnesium) 20 Mg Capsule.dr 1 Cap PO DAILY Zolpidem Tartrate 5 Mg Tablet 5 Mg PO PRN QHS PRN Lisinopril 40 Mg Tablet 1 Tab PO BID Latanoprost 2.5 Ml Drops 1 Drop EACHEYE QHS Pantoprazole Sodium 40 Mg Tablet.dr 40 Mg PO DAILY Sensipar (Cinacalcet Hcl) 30 Mg Tablet 30 Mg PO DAILYWLUN Renvela (Sevelamer Carbonate) 800 Mg Tablet 800 Mg PO TIDWMEALS Nephro-Elsa Tablet (Folic Acid/Vitamin B Comp W-C) 0.8 Mg Tablet 1 Tab PO DAILY Nasonex (Mometasone Furoate) 17 Gm [place].pump 2 Sprays NS DAILY Clonidine Hcl 0.1 Mg Tablet 0.1 Mg PO PRN Q2HR PRN Carvedilol 25 Mg Tablet 12.5 Mg PO BIDWMEALS Carafate (Sucralfate) 1 Gm Tablet 1 Gm PO TIDAC Amlodipine Besylate 10 Mg Tablet 10 Mg PO DAILY Vitals/I & O Vital Sign - Last 24 Hours 04/20/17 04/20/17 04/20/17 04/20/17 18:36 19:10 20:00 20:56 Temp 98.3 98.3 Pulse 64 59 55 Resp 18 B/P (MAP) 156/72 149/84 (105) 128/63 Pulse Ox 99 O2 Delivery Room Air Room Air 04/20/17 04/21/17 04/21/17 04/21/17 22:31 03:33 07:37 07:56 Temp 98.6 97.7 98.6 98.6 97.7 98.6 Pulse 64 64 65 Resp 16 16 18 B/P (MAP) 150/85 (106) 153/78 (103) 137/76 (96) Pulse Ox 99 99 98 O2 Delivery Room Air Room Air Room Air Room Air 04/21/17 04/21/17 04/21/17 04/21/17 10:40 10:40 10:40 11:50 Temp 98.0 98.0 Pulse 75 90 57 57 Resp 18 B/P (MAP) 166/72 (103) 136/89 (105) 186/74 (111) 186/74 Pulse Ox 100 O2 Delivery Room Air 04/21/17 04/21/17 04/21/17 11:51 11:51 14:30 Temp 98.6 98.6 Pulse 57 57 63 Resp 18 B/P (MAP) 186/74 186/74 149/82 (104) Pulse Ox 99 O2 Delivery Room Air Intake and Output 04/20/17 04/20/17 04/21/17 15:00 23:00 07:00 Intake Total 270 ml 100 ml 120 ml Balance 270 ml 100 ml 120 ml Problem List Problems Medical Problems: (1) R11.0 Status: Acute Assessment Abd pain- with ESRD, pancreatitis, slow improvement clinically, CPM, AV fistula planned for am LISA MAYEN MD Apr 21, 2017 15:28
[2017-04-21 19:00] VITALS: BP 147/79
[2017-04-21] MEDS: LATANOPROST 0.005% OPHTH SOLUTION 2.5ML BOTTLE. OU SCH (20:16)
[2017-04-21 22:39] VITALS: BP 137/75
[2017-04-21] MEDS: ZOLPIDEM 5 MG TABLET. PO PRN (22:54)
[2017-04-22] VITALS (9 sets, daily range): BP systolic 143–181; BP diastolic 73–86
[2017-04-22 04:48] LABS: ALBUMIN 3.2 g/dL (3.4-5.0); CALCIUM 8.4 mg/dL (8.5-10.1); CREATININE 7.2 mg/dL (0.6-1.0); GFR 6.8; PHOSPHORUS 2.8 mg/dL (2.6-4.7); POTASSIUM 4.3 mmol/L (3.5-5.1)
[2017-04-22] MEDS ORDERED: LIDOCAINE 1% 1 ML SYRINGE. ID PRN (07:00)
[2017-04-22] MEDS ORDERED: IV RINGERS,LACTATED 1000ML 1,000 ML IV SCH (07:00)
[2017-04-22] MEDS ORDERED: PROCHLORPERAZINE 10 MG/2 ML VIAL. IV PRN (07:00)
[2017-04-22] MEDS: SUCRALFATE 1 GM TABLET. PO SCH ×3 (07:30→16:30)
[2017-04-22] MEDS: PANTOPRAZOLE 40 MG TABLET.DR. PO SCH (07:30)
[2017-04-22] MEDS: ONDANSETRON PF 4 MG/2 ML VIAL. IV PRN ×2 (07:39→13:10)
[2017-04-22] MEDS: FLUTICASONE 50MCG/NASAL SPRAY 16GM BOTTLE. NS SCH (07:50)
[2017-04-22] MEDS ORDERED: SURGICEL FIBRILLAR 1X2 EACH. ONE ×3 (07:51→12:45)
[2017-04-22] MEDS ORDERED: LIDOCAINE 1% 20 ML VIAL. ONE ×4 (07:51→12:45)
[2017-04-22] MEDS ORDERED: PAPAVERINE 60 MG/2 ML VIAL FOR OR ONLY. ONE ×2 (07:51→10:14)
[2017-04-22] MEDS: SEVELAMER CARBONATE 800 MG TABLET. PO SCH ×3 (08:00→16:29)
[2017-04-22] MEDS: CARVEDILOL 12.5 MG TABLET. PO SCH ×2 (08:00→16:29)
[2017-04-22] MEDS ORDERED: IV NORMAL SALINE 1000ML BAG 1,000 ML IV PRN (08:07)
[2017-04-22] MEDS ORDERED: DIALYSIS PATIENT. MC PRN (08:15)
[2017-04-22] MEDS ORDERED: 0.9 % SODIUM CHLORIDE 10 ML DISP.SYRIN. IV PRN ×2 (08:15)
[2017-04-22] MEDS: POLYETHYLENE GLYCOL 3350 17 GM PACKET. PO SCH ×3 (08:50→20:40)
[2017-04-22] MEDS: LISINOPRIL 40 MG TABLET. PO SCH ×3 (08:50→20:42)
--- NOTE | 2017-04-22 09:45 | PDOC ---
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 Vitals Vital Signs Vital Signs Date Time Temp Pulse Resp B/P (MAP) Pulse Ox O2 Delivery O2 Flow Rate FiO2 04/22/17 08:00 Room Air 04/22/17 07:00 97.4 106 16 143/74 (97) 96 97.4 Labs Last Labs Laboratory Tests Test 04/20/17 11:17 04/20/17 20:41 04/21/17 03:50 04/21/17 07:39 Glucose (Fingerstick) 86 mg/dL (70-99) 135 mg/dL (70-99) 94 mg/dL (70-99) White Blood Count 5.5 x10^3/uL (4.0-11.0) Red Blood Count 3.51 x10^6/uL (3.50-5.40) Hemoglobin 10.7 g/dL (12.0-15.5) Hematocrit 31.6 % (36.0-47.0) Mean Corpuscular Volume 90 fL (79-100) Mean Corpuscular Hemoglobin 30 pg (25-35) Mean Corpuscular Hemoglobin Concent 34 g/dL (31-37) Red Cell Distribution Width 15.5 % (11.5-14.5) Platelet Count 119 x10^3/uL (140-400) Neutrophils (%) (Auto) 57 % (31-73) Lymphocytes (%) (Auto) 27 % (24-48) Monocytes (%) (Auto) 9 % (0-9) Eosinophils (%) (Auto) 6 % (0-3) Basophils (%) (Auto) 1 % (0-3) Neutrophils # (Auto) 3.1 x10^3uL (1.8-7.7) Lymphocytes # (Auto) 1.5 x10^3/uL (1.0-4.8) Monocytes # (Auto) 0.5 x10^3/uL (0.0-1.1) Eosinophils # (Auto) 0.3 x10^3/uL (0.0-0.7) Basophils # (Auto) 0.0 x10^3/uL (0.0-0.2) Sodium Level 137 mmol/L (136-145) Potassium Level 4.1 mmol/L (3.5-5.1) Chloride Level 98 mmol/L (98-107) Carbon Dioxide Level 30 mmol/L (21-32) Anion Gap 9 (6-14) Blood Urea Nitrogen 14 mg/dL (7-20) Creatinine 5.0 mg/dL (0.6-1.0) Estimated GFR (Cockcroft-Gault) 10.4 BUN/Creatinine Ratio 3 (6-20) Glucose Level 95 mg/dL (70-99) Calcium Level 8.9 mg/dL (8.5-10.1) Phosphorus Level 2.7 mg/dL (2.6-4.7) Magnesium Level 1.9 mg/dL (1.8-2.4) Total Bilirubin 0.4 mg/dL (0.2-1.0) Aspartate Amino Transf (AST/SGOT) 15 U/L (15-37) Alanine Aminotransferase (ALT/SGPT) 10 U/L (14-59) Alkaline Phosphatase 89 U/L (46-116) Total Protein 7.9 g/dL (6.4-8.2) Albumin 3.3 g/dL (3.4-5.0) Albumin/Globulin Ratio 0.7 (1.0-1.7) Amylase Level 227 U/L (25-115) Lipase 585 U/L (73-393) Test 04/21/17 11:30 04/21/17 16:21 04/21/17 20:15 04/22/17 02:50 Glucose (Fingerstick) 79 mg/dL (70-99) 100 mg/dL (70-99) 96 mg/dL (70-99) Sodium Level 137 mmol/L (136-145) Potassium Level 4.3 mmol/L (3.5-5.1) Chloride Level 99 mmol/L (98-107) Carbon Dioxide Level 30 mmol/L (21-32) Anion Gap 8 (6-14) Blood Urea Nitrogen 29 mg/dL (7-20) Creatinine 7.2 mg/dL (0.6-1.0) Estimated GFR (Cockcroft-Gault) 6.8 Glucose Level 99 mg/dL (70-99) Calcium Level 8.4 mg/dL (8.5-10.1) Phosphorus Level 2.8 mg/dL (2.6-4.7) Magnesium Level 2.1 mg/dL (1.8-2.4) Albumin 3.2 g/dL (3.4-5.0) Test 04/22/17 07:48 Glucose (Fingerstick) 104 mg/dL (70-99) Laboratory Tests Test 04/21/17 11:30 04/21/17 16:21 04/21/17 20:15 04/22/17 02:50 Glucose (Fingerstick) 79 mg/dL (70-99) 100 mg/dL (70-99) 96 mg/dL (70-99) Sodium Level 137 mmol/L (136-145) Potassium Level 4.3 mmol/L (3.5-5.1) Chloride Level 99 mmol/L (98-107) Carbon Dioxide Level 30 mmol/L (21-32) Anion Gap 8 (6-14) Blood Urea Nitrogen 29 mg/dL (7-20) Creatinine 7.2 mg/dL (0.6-1.0) Estimated GFR (Cockcroft-Gault) 6.8 Glucose Level 99 mg/dL (70-99) Calcium Level 8.4 mg/dL (8.5-10.1) Phosphorus Level 2.8 mg/dL (2.6-4.7) Magnesium Level 2.1 mg/dL (1.8-2.4) Albumin 3.2 g/dL (3.4-5.0) Test 04/22/17 07:48 Glucose (Fingerstick) 104 mg/dL (70-99) Assessment Assessment Problems Medical Problems: (1) R11.0 Status: Acute Problems: Plan Plan of Care Problems Medical Problems: (1) R11.0 Status: Acute FRANCOIS IBARRA MD Apr 22, 2017 09:44
[2017-04-22] MEDS ORDERED: HEPARIN SODIUM 5,000 UNIT in IV NORMAL SALINE 500ML BAG 500 ML IRR ONE (11:00)
[2017-04-22] MEDS: IV NORMAL SALINE 1000ML BAG 1,000 ML IV SCH (12:20)
[2017-04-22] MEDS ORDERED: HEPARIN for IV BOLUS 10,000 UNIT/10 ML VIAL. ONE (14:25)
[2017-04-22] MEDS ORDERED: ONDANSETRON PF 4 MG/2 ML VIAL. ONE (15:07)
[2017-04-22] MEDS ORDERED: PROCHLORPERAZINE 10 MG/2 ML VIAL. ONE (15:19)
--- NOTE | 2017-04-22 15:21 | PDOC4 ---
Operative Note Operative Note April 22, 2017 Vascular surgery operative report Surgeon:Roger Rivera, , LENNY, RPVI Preoperative diagnosis: End-stage renal disease on hemodialysis Postoperative diagnosis: Same Procedure: Right upper extremity brachial-basilic AV fistula creation next Anesthesia: Local with Mac Specimens: None Competitions: None Preoperative indications: This is a very pleasant 71-year-old female who has been receiving dialysis via a right upper extremity AV graft. This was found to be thrombosed and we were asked to establish new access. I consented the patient for the procedure and described the procedure in depth. All risks, benefits, and alternatives of the procedure were also described in depth and the patient demonstrated full understanding of the procedure and was allowed to ask questions to her satisfaction. She did agree to proceed with the procedure excepting the inherent risks. Operative procedure: The patient was brought to the operative suite placed in supine position after establishing adequate sedation per anesthesia the patient's right upper extremity was prepped and draped in sterile fashion. Next a timeout procedure was performed. Was confirmed that the patient did receive appropriate perioperative antibiotics, and the correct operative site was marked and draped. Next using a sterile ultrasound probe, I evaluated the right upper extremity and was able to identify a very nice generous basilic vein just above the antecubital fossa. This vein was marked on the skin with the assistance of the ultrasound. Following this, 1% lidocaine was infiltrated underneath the skin , and then a transverse incision was made and carried through the skin a subcutaneous tissue. Our dissection was carried carefully down to the level of the basilic vein where this was circumferentially dissected proximally and distally. Several tributaries of the vein were ligated with silk ligatures and hemoclips. Following this the brachial artery was exposed above the level of the antecubital fossa and this was dissected proximally and distally. Next the vessel was controlled using vessel loops proximally and distally. Following this our basilic vein was ligated at the antecubital fossa and the proximal end was controlled using a bulldog clamp. Next the patient was administered heparin and this was let circulate for 3 minutes. Following this the brachial artery was controlled proximally and distally and then a #11 blade scalpel was used to create an arteriotomy. This was extended using Ayers scissors. Following this, 2 6-0 Prolene stay sutures were applied into the arterial wall. Following this our vein was prepared, and flushed with heparinized saline. I was able to confirm excellent venous outflow through the vein, and the vein dilated nicely with saline injection. Following this using a 7-0 Prolene suture a end to side anastomosis was prepared and sewn in a running fashion. Prior to completing the anastomosis we did back bleed and flush the vessels appropriately, and then the anastomosis was completed and flow was restored. There was excellent hemostasis at the level of the anastomosis and an immediate thrill within the basilic vein and the outflow tract. After confirming adequate hemostasis within the surgical field, the wound was copiously irrigated with antibiotic impregnated solution. Following this after a correct instrument and needle count, the skin incision was closed using interrupted 3-0 Vicryl suture in a deep dermal fashion. Dermabond was applied to the skin. Next an ABD, Kerlix roll, and an Иван wrap was applied. The patient had a palpable radial pulse at the level of the right wrist, and an excellent thrill through the basilic vein outflow. Patient tolerated procedure well and was transferred to the post anesthesia care unit in stable condition. Roger Rivera DO, FACS, RPVI [employer] Bed Worker of Vascular Surgery [facility] ROGER RIVERA DO Apr 22, 2017 15:21
[2017-04-22] MEDS: CINACALCET HCL 30 MG TABLET PO SCH (16:29)
[2017-04-22] MEDS: amLODIPine BESYLATE 10 MG TABLET PO SCH (16:30)
[2017-04-22] MEDS: FOLIC/VIT B COMP W-C (RENAL) TABLET. PO SCH (16:30)
--- NOTE | 2017-04-22 16:41 | PDOC ---
PROGRESS NOTES Subjective Subjective seen in dialysis this am, going for AV fistula later today Objective Objective Vital Signs Date Time Temp Pulse Resp B/P (MAP) Pulse Ox O2 Delivery O2 Flow Rate FiO2 04/22/17 16:30 60 175/84 04/22/17 16:00 20 100 Nasal Cannula 2 04/22/17 15:12 97.6 97.6 Intake and Output 04/22/17 07:00 Intake Total 1300 ml Output Total 0 ml Balance 1300 ml Intake Oral 1300 ml Output Urine Total 0 ml Physical Exam Abdomen: Normal bowel sounds, Soft, No tenderness Heart: Regular rate, Normal S1, Normal S2, No murmurs Extremities: No edema, Normal pulses General: Alert, Oriented X3, Cooperative, No acute distress HEENT: Atraumatic, PERRLA Lungs: Clear to auscultation, Normal air movement MUSCULOSKELETAL: No deformity, No swelling Neck: Supple Neuro: Normal speech Psych/Mental Status: Mental status NL Skin: No rashes, Other (Notable subcutaneous right forearm dialysis access without bruit or thrill. IV access to left neck. Dialysis catheter located in right lower chest.) Diagnosis Problem List Problems Medical Problems: (1) R11.0 Status: Acute Assessment Assessment 1.Pancreatitis,?Gall stones gravel. 2. hypertensive urgency 3. ESRD HD 3times weekly 4. chills without fever 5. diastolic CHF EF normal not acute 6. GERD 7. glaucoma 8. moderate weakness and debility 9. moderate chronic weakness and debility 10. thrombocytopenia PLAN:going for AV shunt today after dialysis blood c/s neg. spoke with renal +ID today amylase +lipase elevate today,clinically soft abdomen vomiting improved CT abdomen/pelvis wo contrast -small gal stones gravel, stable renal mass rt kidney 3,6 cm from 2010, uterine fibroid+ Abd sono- neg Problems: Plan Plan of Care Problems Medical Problems: (1) R11.0 Status: Acute Comment Review of Relevant I have reviewed the following items dorina (where applicable) has been applied. Labs Laboratory Tests Test 04/21/17 20:15 04/22/17 02:50 04/22/17 07:48 04/22/17 12:25 Glucose (Fingerstick) 96 mg/dL (70-99) 104 mg/dL (70-99) 91 mg/dL (70-99) Sodium Level 137 mmol/L (136-145) Potassium Level 4.3 mmol/L (3.5-5.1) Chloride Level 99 mmol/L (98-107) Carbon Dioxide Level 30 mmol/L (21-32) Anion Gap 8 (6-14) Blood Urea Nitrogen 29 mg/dL (7-20) Creatinine 7.2 mg/dL (0.6-1.0) Estimated GFR (Cockcroft-Gault) 6.8 Glucose Level 99 mg/dL (70-99) Calcium Level 8.4 mg/dL (8.5-10.1) Phosphorus Level 2.8 mg/dL (2.6-4.7) Magnesium Level 2.1 mg/dL (1.8-2.4) Albumin 3.2 g/dL (3.4-5.0) Microbiology 04/18/17 Blood Culture - Preliminary, Resulted NO GROWTH AFTER 4 DAYS Medications Current Medications Cefazolin Sodium 1 gm/Sodium Chloride 500 ml @ 500 mls/hr 1X PERIOP ONCE IRR ; Start 04/22/17 at 11:00; Stop 04/22/17 at 11:59; Status DC Cefazolin Sodium/ Dextrose 50 ml @ 100 mls/hr 1X PREOP PRN IV preop Last administered on 04/22/17 15:00; Start 04/22/17 at 06:00; Stop 04/22/17 at 18:00 Cellulose 1 each STK-MED ONCE .ROUTE ; Start 04/22/17 at 07:51; Stop 04/22/17 at 07:52; Status DC Cellulose 1 each STK-MED ONCE .ROUTE ; Start 04/22/17 at 10:14; Stop 04/22/17 at 10:15; Status DC Cellulose 1 each STK-MED ONCE .ROUTE ; Start 04/22/17 at 12:45; Stop 04/22/17 at 12:46; Status DC Heparin Sodium (Porcine) (Heparin Sodium) 10,000 unit STK-MED ONCE .ROUTE ; Start 04/22/17 at 14:25; Stop 04/22/17 at 14:26; Status DC Heparin Sodium (Porcine) 5000 unit/Sodium Chloride 505 ml @ 505 mls/hr 1X PERIOP ONCE IRR Last administered on 04/22/17t 14:00; Start 04/22/17 at 11:00; Stop 04/22/17 at 11:59; Status DC Info (PHARMACY MONITORING -- do not chart) 1 each PRN DAILY PRN MC SEE COMMENTS ; Start 04/22/17 at 08:15 Lidocaine HCl 2 ml PRN 1X PRN ID PRIOR TO IV START; Start 04/22/17 at 07:00; Stop 04/23/17 at 06:59 Lidocaine HCl 20 ml STK-MED ONCE .ROUTE Last administered on 04/22/17 13:57; Start 04/22/17 at 07:51; Stop 04/22/17 at 07:52; Status DC Lidocaine HCl 20 ml STK-MED ONCE .ROUTE ; Start 04/22/17 at 10:15; Stop 04/22/17 at 10:16; Status DC Lidocaine HCl 20 ml STK-MED ONCE .ROUTE ; Start 04/22/17 at 10:15; Stop 04/22/17 at 10:16; Status DC Lidocaine HCl 20 ml STK-MED ONCE .ROUTE ; Start 04/22/17 at 12:45; Stop 04/22/17 at 12:46; Status DC Ondansetron HCl (Zofran) 4 mg PRN Q6HRS PRN IV NAUSEA/VOMITING Last administered on 04/22/17 13:10; Start 04/22/17 at 07:00; Stop 04/23/17 at 06:59 Ondansetron HCl (Zofran) 4 mg STK-MED ONCE .ROUTE ; Start 04/22/17 at 15:07; Stop 04/22/17 at 15:08; Status DC Papaverine HCl 60 mg STK-MED ONCE .ROUTE ; Start 04/22/17 at 07:51; Stop 04/22/17 at 07:52; Status DC Papaverine HCl 60 mg STK-MED ONCE .ROUTE ; Start 04/22/17 at 10:14; Stop 04/22/17 at 10:15; Status DC Prochlorperazine Edisylate (Compazine) 5 mg PACU PRN PRN IV NAUSEA, MRX1 Last administered on 04/22/17 15:28; Start 04/22/17 at 07:00; Stop 04/23/17 at 06:59 Prochlorperazine Edisylate (Compazine) 10 mg STK-MED ONCE .ROUTE ; Start at 15:19; Stop 04/22/17 at 15:20; Status DC Ringer's Solution 1,000 ml @ 30 mls/hr Q24H IV ; Start 04/22/17 at 07:00; Stop 04/22/17 at 18:59 Sodium Chloride 1,000 ml @ 75 mls/hr [id number] IV Last administered on 04/22/17t 12:20; Start 04/22/17 at 12:45 Sodium Chloride 1,000 ml @ 1,000 mls/hr Q1H PRN IV hypotension; Start 04/22/17 at 08:07; Stop 04/22/17 at 14:06; Status DC Sodium Chloride (Normal Saline Flush) 10 ml 1X PRN PRN IV AP catheter pack; Start 04/22/17 at 08:15; Stop 04/23/17 at 08:14 Sodium Chloride (Normal Saline Flush) 10 ml 1X PRN PRN IV SUPERINTENDENT MENAGERIE catheter pack; Start 04/22/17 at 08:15; Stop 04/23/17 at 08:14 Vitals/I & O Vital Sign - Last 24 Hours 04/21/17 04/21/17 04/21/17 04/21/17 16:54 19:00 20:00 20:17 Temp 97.8 97.8 Pulse 63 66 66 Resp 18 B/P (MAP) 149/82 147/79 (101) 147/79 Pulse Ox 100 O2 Delivery Room Air Room Air 04/21/17 04/22/17 04/22/17 04/22/17 22:39 03:00 07:00 07:40 Temp 98.9 97.9 97.4 98.9 97.9 97.4 Pulse 60 60 106 Resp 18 20 16 B/P (MAP) 137/75 (95) 152/79 (103) 143/74 (97) Pulse Ox 100 99 96 O2 Delivery Room Air Room Air Room Air Room Air 04/22/17 04/22/17 04/22/17 04/22/17 08:00 12:31 15:12 15:12 Temp 98.5 97.6 98.5 97.6 Pulse 61 64 Resp 14 20 B/P (MAP) 140/81 179/72 Pulse Ox 99 100 O2 Delivery Room Air Room Air Nasal Cannula Nasal Cannula O2 Flow Rate 2 2 04/22/17 04/22/17 04/22/17 04/22/17 15:27 15:42 16:00 16:29 Pulse 64 63 68 60 Resp 20 20 20 B/P (MAP) 188/81 188/81 177/79 175/84 Pulse Ox 100 100 100 O2 Delivery Nasal Cannula Nasal Cannula Nasal Cannula O2 Flow Rate 2 2 2 04/22/17 16:30 Pulse 60 B/P (MAP) 175/84 Intake and Output 04/21/17 04/21/17 04/22/17 15:00 23:00 07:00 Intake Total 580 ml 480 ml 240 ml Output Total 0 ml Balance 580 ml 480 ml 240 ml YARY FAIRCHILD MD Apr 22, 2017 16:41
[2017-04-22] MEDS: LATANOPROST 0.005% OPHTH SOLUTION 2.5ML BOTTLE. OU SCH (20:33)
[2017-04-22] MEDS: ACETAMINOPHEN 325 MG TABLET. PO PRN (20:40)
[2017-04-23] VITALS (9 sets, daily range): BP systolic 97–156; BP diastolic 59–91
[2017-04-23] MEDS: IV NORMAL SALINE 1000ML BAG 1,000 ML IV SCH ×2 (02:05→14:05)
[2017-04-23 05:40] LABS: ALBUMIN 3.1 g/dL (3.4-5.0); CALCIUM 8.5 mg/dL (8.5-10.1); CREATININE 5.2 mg/dL (0.6-1.0); GFR 9.9; PHOSPHORUS 4.2 mg/dL (2.6-4.7); POTASSIUM 4.1 mmol/L (3.5-5.1)
--- NOTE | 2017-04-23 07:51 | PDOC ---
Provider Note Provider Note POD # 1 Post op rt UA shunt Incisions clean, nice bruit, minimal swelling Imp: Patent Rt UA shunt Plan: OK to access in ~ 1 mo. STEFAN MARROQUIN MD Apr 23, 2017 07:51
[2017-04-23] MEDS: ACETAMINOPHEN 325 MG TABLET. PO PRN ×3 (07:56→20:53)
[2017-04-23] MEDS: PANTOPRAZOLE 40 MG TABLET.DR. PO SCH (07:56)
[2017-04-23] MEDS: SUCRALFATE 1 GM TABLET. PO SCH ×3 (07:56→16:50)
[2017-04-23 08:26] LABS: AMYLASE 241 U/L (25-115)
[2017-04-23] MEDS: FLUTICASONE 50MCG/NASAL SPRAY 16GM BOTTLE. NS SCH (09:39)
[2017-04-23] MEDS: POLYETHYLENE GLYCOL 3350 17 GM PACKET. PO SCH ×3 (09:39→20:38)
[2017-04-23] MEDS: CARVEDILOL 12.5 MG TABLET. PO SCH ×2 (09:40→16:50)
[2017-04-23] MEDS: SEVELAMER CARBONATE 800 MG TABLET. PO SCH ×3 (09:40→16:50)
[2017-04-23] MEDS: FOLIC/VIT B COMP W-C (RENAL) TABLET. PO SCH (09:40)
[2017-04-23] MEDS: LISINOPRIL 40 MG TABLET. PO SCH (09:41)
[2017-04-23] MEDS: amLODIPine BESYLATE 10 MG TABLET PO SCH (09:44)
--- NOTE | 2017-04-23 10:00 | PDOC ---
PROGRESS NOTES Subjective Subjective feeling better,wanting to go home Objective Objective Vital Signs Date Time Temp Pulse Resp B/P (MAP) Pulse Ox O2 Delivery O2 Flow Rate FiO2 04/23/17 09:44 66 128/59 04/23/17 07:00 98.2 16 98 Room Air 98.2 04/22/17 16:00 2 Intake and Output 04/23/17 07:00 Intake Total 250 ml Output Total 210 ml Balance 40 ml Intake Oral 0 ml IV Total 250 ml Emesis 210 ml Physical Exam Abdomen: Normal bowel sounds, Soft, No tenderness Heart: Regular rate, Normal S1, Normal S2, No murmurs Extremities: No edema, Normal pulses General: Alert, Oriented X3, Cooperative, No acute distress HEENT: Atraumatic, PERRLA Lungs: Clear to auscultation, Normal air movement MUSCULOSKELETAL: No deformity, No swelling Neck: Supple Neuro: Normal speech Psych/Mental Status: Mental status NL Skin: No rashes, Other (Notable subcutaneous right forearm dialysis access without bruit or thrill. IV access to left neck. Dialysis catheter located in right lower chest.) Diagnosis Problem List Problems Medical Problems: (1) R11.0 Status: Acute Assessment Assessment 1.Pancreatitis,?Gall stones gravel. 2. hypertensive urgency 3. ESRD HD 3times weekly 4. chills without fever 5. diastolic CHF EF normal not acute 6. GERD 7. glaucoma 8. moderate weakness and debility 9. moderate chronic weakness and debility 10. thrombocytopenia PLAN: d/c to SNU or home AV shunt placed yesterday after dialysis blood c/s neg. spoke with renal amylase down+lipase elevate today,clinically improved vomiting improved CT abdomen/pelvis wo contrast -small gal stones gravel, stable renal mass rt kidney 3,6 cm from 2010, uterine fibroid+ Abd sono- neg Problems: Plan Plan of Care Problems Medical Problems: (1) R11.0 Status: Acute Comment Review of Relevant I have reviewed the following items dorina (where applicable) has been applied. Labs Laboratory Tests Test 04/22/17 12:25 04/22/17 16:31 04/23/17 04:40 04/23/17 07:27 Glucose (Fingerstick) 91 mg/dL (70-99) 114 mg/dL (70-99) 94 mg/dL (70-99) Sodium Level 138 mmol/L (136-145) Potassium Level 4.1 mmol/L (3.5-5.1) Chloride Level 100 mmol/L (98-107) Carbon Dioxide Level 32 mmol/L (21-32) Anion Gap 6 (6-14) Blood Urea Nitrogen 15 mg/dL (7-20) Creatinine 5.2 mg/dL (0.6-1.0) Estimated GFR (Cockcroft-Gault) 9.9 Glucose Level 102 mg/dL (70-99) Calcium Level 8.5 mg/dL (8.5-10.1) Phosphorus Level 4.2 mg/dL (2.6-4.7) Magnesium Level 1.9 mg/dL (1.8-2.4) Albumin 3.1 g/dL (3.4-5.0) Amylase Level 241 U/L (25-115) Lipase 1624 U/L (73-393) Microbiology 04/18/17 Blood Culture - Final, Complete NO GROWTH AFTER 5 DAYS Medications Current Medications Cefazolin Sodium 1 gm/Sodium Chloride 500 ml @ 500 mls/hr 1X PERIOP ONCE IRR ; Start 04/22/17 at 11:00; Stop 04/22/17 at 11:59; Status DC Cellulose 1 each STK-MED ONCE .ROUTE ; Start 04/22/17 at 10:14; Stop 04/22/17 at 10:15; Status DC Cellulose 1 each STK-MED ONCE .ROUTE ; Start 04/22/17 at 12:45; Stop 04/22/17 at 12:46; Status DC Heparin Sodium (Porcine) (Heparin Sodium) 10,000 unit STK-MED ONCE .ROUTE ; Start 04/22/17 at 14:25; Stop 04/22/17 at 14:26; Status DC Heparin Sodium (Porcine) 5000 unit/Sodium Chloride 505 ml @ 505 mls/hr 1X PERIOP ONCE IRR Last administered on 04/22/17t 14:00; Start 04/22/17 at 11:00; Stop 04/22/17 at 11:59; Status DC Lidocaine HCl 20 ml STK-MED ONCE .ROUTE ; Start 04/22/17 at 10:15; Stop 04/22/17 at 10:16; Status DC Lidocaine HCl 20 ml STK-MED ONCE .ROUTE ; Start 04/22/17 at 10:15; Stop 04/22/17 at 10:16; Status DC Lidocaine HCl 20 ml STK-MED ONCE .ROUTE ; Start 04/22/17 at 12:45; Stop 04/22/17 at 12:46; Status DC Ondansetron HCl (Zofran) 4 mg STK-MED ONCE .ROUTE ; Start 04/22/17 at 15:07; Stop 04/22/17 at 15:08; Status DC Papaverine HCl 60 mg STK-MED ONCE .ROUTE ; Start 04/22/17 at 10:14; Stop 04/22/17 at 10:15; Status DC Prochlorperazine Edisylate (Compazine) 10 mg STK-MED ONCE .ROUTE ; Start at 15:19; Stop 04/22/17 at 15:20; Status DC Sodium Chloride 1,000 ml @ 75 mls/hr [id number] IV Last administered on 04/22/17t 12:20; Start 04/22/17 at 12:45 Vitals/I & O Vital Sign - Last 24 Hours 04/22/17 04/22/17 04/22/17 04/22/17 12:31 15:12 15:12 15:27 Temp 98.5 97.6 98.5 97.6 Pulse 61 64 64 Resp 14 20 20 B/P (MAP) 140/81 179/72 188/81 Pulse Ox 99 100 100 O2 Delivery Room Air Nasal Cannula Nasal Cannula Nasal Cannula O2 Flow Rate 2 2 2 04/22/17 04/22/17 04/22/17 04/22/17 15:42 16:00 16:15 16:29 Temp 98.2 98.2 Pulse 63 68 61 60 Resp 20 20 16 B/P (MAP) 188/81 177/79 166/86 (112) 175/84 Pulse Ox 100 100 96 O2 Delivery Nasal Cannula Nasal Cannula Room Air O2 Flow Rate 2 2 04/22/17 04/22/17 04/22/17 04/22/17 16:30 16:30 16:45 17:15 Pulse 60 56 55 59 B/P (MAP) 175/84 175/84 (114) 156/73 (100) 181/80 (113) 04/22/17 04/22/17 04/22/17 04/22/17 17:45 19:00 20:00 20:42 Temp 97.5 97.5 Pulse 61 65 60 B/P (MAP) 157/77 (103) 179/76 (110) 179/76 O2 Delivery Room Air 04/22/17 04/23/17 04/23/17 04/23/17 22:57 03:00 07:00 09:40 Temp 98.8 98.1 98.2 98.8 98.1 98.2 Pulse 64 59 66 66 Resp 20 20 16 B/P (MAP) 151/80 (103) 156/75 (102) 128/59 (82) 128/59 Pulse Ox 95 97 98 O2 Delivery Room Air Room Air Room Air 04/23/17 04/23/17 09:41 09:44 Pulse 66 66 B/P (MAP) 128/59 128/59 Intake and Output 04/22/17 04/22/17 04/23/17 15:00 23:00 07:00 Intake Total 250 ml 0 ml Output Total 10 ml 200 ml Balance 240 ml -200 ml YARY FAIRCHILD MD Apr 23, 2017 10:00
--- NOTE | 2017-04-23 10:10 | PDOC ---
SUBJECTIVE ROS ESRD doign and feeling much better CVS: no Orthopnea, no CP RESP: no SOB, no GRACE GI: min Nausea, no Vomiting : no Dysuria, no Urgency OBJECTIVE Vital Signs Vital Signs Date Time Temp Pulse Resp B/P (MAP) Pulse Ox O2 Delivery O2 Flow Rate FiO2 04/23/17 09:44 66 128/59 04/23/17 07:00 98.2 16 98 Room Air 98.2 04/22/17 16:00 2 I & 0 Intake and Output 04/23/17 07:00 Intake Total 250 ml Output Total 210 ml Balance 40 ml Intake Oral 0 ml IV Total 250 ml Emesis 210 ml PHYSICAL EXAM Physical Exam GEN: Awake, Oriented x 3, In no distress EYES: Vision Unchanged, Conjunctiva Normal EN: No EN Drainage, Mucous Membranes moist NECK: no JVD, min JVP, Supple, no Thyromegaly CVS: S1S2, ? Murmur, No Gallop, No Rub,no Edema RESP: no Rales, no Rhonchi,no Acc. Muscle Use GI: BS + ve, NO Bruit, Non Tender, Non Distended : no CVA tenderness, no Suprapubic Tenderness DIAGNOSIS/ASSESSMENT Assessment & Plan After Review of available labs/ radiology as reported - following is my Assessment and Plan ESRD: Current fluid and E-lyte status does not necessitate emergent need for dialysis. Will re-evaluate for dialysis in the am and continue on MWF schedule. ANEMIA; hgb is much better after Aranesp as ordered, HTN: Current BP meds as reviewed. See orders for changes. BONE & MINERAL: follow phos and alter binder regimen prn NV - Doubt Uremic per se - defer to GI to Eval and treat ^ed lipase Discussed Plan of Care with pt at bedside and Dr Bunch COMMENT/RELEVANT DATA Meds Current Medications Medications (Trade) Dose Ordered Sig/Any Start Time Stop Time Status Last Admin Dose Admin Acetaminophen (Tylenol) 650 mg PRN Q6HRS PRN 04/17/17 19:45 04/23/17 07:56 650 MG Amlodipine Besylate (Norvasc) 10 mg DAILY 04/18/17 09:00 04/23/17 09:44 10 MG Carvedilol (Coreg) 12.5 mg BIDWMEALS 04/17/17 20:00 04/23/17 09:40 12.5 MG Cefazolin Sodium 1 gm/Sodium Chloride 500 ml @ 500 mls/hr 1X PERIOP ONCE 04/22/17 11:00 04/22/17 11:59 DC Cefazolin Sodium/ Dextrose 50 ml @ 100 mls/hr 1X PREOP PRN 04/22/17 06:00 04/22/17 18:00 DC 04/22/17 15:00 Cellulose 1 each STK-MED ONCE 04/22/17 12:45 04/22/17 12:46 DC Cinacalcet (Sensipar) 30 mg DAILYWLUN 04/18/17 12:00 04/22/17 16:29 30 MG Ciprofloxacin (Cipro) 500 mg DAILY 04/18/17 09:00 04/18/17 09:00 DC Clonidine HCl (Catapres) 0.1 mg PRN Q2HR PRN 04/17/17 19:45 04/18/17 02:59 0.1 MG Diphenhydramine HCl (Benadryl) 25 mg 1X PRN PRN 04/18/17 07:45 04/19/17 07:44 DC Enoxaparin Sodium (Lovenox 30mg Syringe) 30 mg 1X ONCE 04/20/17 10:00 04/20/17 10:01 DC 04/20/17 11:59 30 MG Fentanyl Citrate (Fentanyl 2ml Vial) 25 mcg PRN Q3HRS PRN 04/17/17 19:45 04/22/17 07:40 25 MCG Fluticasone Propionate (Flonase) 2 spray DAILY 04/18/17 09:00 04/23/17 09:39 2 SPRAY Heparin Sodium (Porcine) (Heparin Sodium) 10,000 unit STK-MED ONCE 04/22/17 14:25 04/22/17 14:26 DC Heparin Sodium (Porcine) 5000 unit/Sodium Chloride 505 ml @ 505 mls/hr 1X PERIOP ONCE 04/22/17 11:00 04/22/17 11:59 DC 04/22/17 14:00 Hydralazine HCl (Apresoline) 10 mg PRN Q4HRS PRN 04/17/17 18:15 04/18/17 23:35 10 MG Info (PHARMACY MONITORING -- do not chart) 1 each PRN DAILY PRN 04/22/17 08:15 Latanoprost (Xalatan) 1 drop QHS 04/17/17 21:00 04/22/17 20:33 1 DROP Lidocaine HCl 20 ml STK-MED ONCE 04/22/17 12:45 04/22/17 12:46 DC Lisinopril (Prinivil) 40 mg BID 04/17/17 21:00 04/23/17 09:41 40 MG Magnesium Sulfate/ Dextrose 50 ml @ 25 mls/hr PRN DAILY PRN 04/20/17 11:45 Ondansetron HCl (Zofran) 4 mg STK-MED ONCE 04/22/17 15:07 04/22/17 15:08 DC Pantoprazole Sodium (Protonix) 40 mg DAILYAC 04/17/17 22:00 04/23/17 07:56 40 MG Papaverine HCl 60 mg STK-MED ONCE 04/22/17 10:14 04/22/17 10:15 DC Polyethylene Glycol (miraLAX PACKET) 17 gm TID 04/20/17 14:00 04/23/17 09:39 17 GM Prochlorperazine Edisylate (Compazine) 10 mg STK-MED ONCE 04/22/17 15:19 04/22/17 15:20 DC Ringer's Solution 1,000 ml @ 30 mls/hr Q24H 04/22/17 07:00 04/22/17 16:54 DC Sevelamer Carbonate (Renvela) 800 mg TIDWMEALS 04/17/17 20:00 04/23/17 09:40 800 MG Sodium Chloride 1,000 ml @ 75 mls/hr [id number] 04/22/17 12:45 04/22/17 12:20 75 MLS/HR Sodium Chloride (Normal Saline Flush) 10 ml 1X PRN PRN 04/22/17 08:15 04/23/17 08:14 DC Sucralfate (Carafate) 1 gm TIDAC 04/18/17 07:30 04/23/17 07:56 1 GM Vitamin B Complex/ Vitamin C (Evelyn-Elsa) 1 tab DAILY 04/18/17 09:00 04/23/17 09:40 1 TAB Zolpidem Tartrate (Ambien) 5 mg PRN QHS PRN 04/17/17 19:45 04/21/17 22:54 5 MG Lab Laboratory Tests Test 04/22/17 12:25 04/22/17 16:31 04/23/17 04:40 04/23/17 07:27 Glucose (Fingerstick) 91 mg/dL (70-99) 114 mg/dL (70-99) 94 mg/dL (70-99) Sodium Level 138 mmol/L (136-145) Potassium Level 4.1 mmol/L (3.5-5.1) Chloride Level 100 mmol/L (98-107) Carbon Dioxide Level 32 mmol/L (21-32) Anion Gap 6 (6-14) Blood Urea Nitrogen 15 mg/dL (7-20) Creatinine 5.2 mg/dL (0.6-1.0) Estimated GFR (Cockcroft-Gault) 9.9 Glucose Level 102 mg/dL (70-99) Calcium Level 8.5 mg/dL (8.5-10.1) Phosphorus Level 4.2 mg/dL (2.6-4.7) Magnesium Level 1.9 mg/dL (1.8-2.4) Albumin 3.1 g/dL (3.4-5.0) Amylase Level 241 U/L (25-115) Lipase 1624 U/L (73-393) FRANCOIS IBARRA MD Apr 23, 2017 10:10
--- NOTE | 2017-04-23 11:06 | PDOC ---
G I PROGRESS NOTE Reason for Follow-up ABd pain/n/v Subjective Tolerating PO/pain decreasing Physical Exam Lungs clear CV S1 S2 ABD +BS, soft, mild epigastric tenderness to palpation Review of Relevant I have reviewed the following items dorina (where applicable) has been applied. Labs Laboratory Tests Test 04/21/17 11:30 04/21/17 16:21 04/21/17 20:15 04/22/17 02:50 Glucose (Fingerstick) 79 mg/dL (70-99) 100 mg/dL (70-99) 96 mg/dL (70-99) Sodium Level 137 mmol/L (136-145) Potassium Level 4.3 mmol/L (3.5-5.1) Chloride Level 99 mmol/L (98-107) Carbon Dioxide Level 30 mmol/L (21-32) Anion Gap 8 (6-14) Blood Urea Nitrogen 29 mg/dL (7-20) Creatinine 7.2 mg/dL (0.6-1.0) Estimated GFR (Cockcroft-Gault) 6.8 Glucose Level 99 mg/dL (70-99) Calcium Level 8.4 mg/dL (8.5-10.1) Phosphorus Level 2.8 mg/dL (2.6-4.7) Magnesium Level 2.1 mg/dL (1.8-2.4) Albumin 3.2 g/dL (3.4-5.0) Test 04/22/17 07:48 04/22/17 12:25 04/22/17 16:31 04/23/17 04:40 Glucose (Fingerstick) 104 mg/dL (70-99) 91 mg/dL (70-99) 114 mg/dL (70-99) Sodium Level 138 mmol/L (136-145) Potassium Level 4.1 mmol/L (3.5-5.1) Chloride Level 100 mmol/L (98-107) Carbon Dioxide Level 32 mmol/L (21-32) Anion Gap 6 (6-14) Blood Urea Nitrogen 15 mg/dL (7-20) Creatinine 5.2 mg/dL (0.6-1.0) Estimated GFR (Cockcroft-Gault) 9.9 Glucose Level 102 mg/dL (70-99) Calcium Level 8.5 mg/dL (8.5-10.1) Phosphorus Level 4.2 mg/dL (2.6-4.7) Magnesium Level 1.9 mg/dL (1.8-2.4) Albumin 3.1 g/dL (3.4-5.0) Amylase Level 241 U/L (25-115) Lipase 1624 U/L (73-393) Test 04/23/17 07:27 Glucose (Fingerstick) 94 mg/dL (70-99) Laboratory Tests Test 04/22/17 12:25 04/22/17 16:31 04/23/17 04:40 04/23/17 07:27 Glucose (Fingerstick) 91 mg/dL (70-99) 114 mg/dL (70-99) 94 mg/dL (70-99) Sodium Level 138 mmol/L (136-145) Potassium Level 4.1 mmol/L (3.5-5.1) Chloride Level 100 mmol/L (98-107) Carbon Dioxide Level 32 mmol/L (21-32) Anion Gap 6 (6-14) Blood Urea Nitrogen 15 mg/dL (7-20) Creatinine 5.2 mg/dL (0.6-1.0) Estimated GFR (Cockcroft-Gault) 9.9 Glucose Level 102 mg/dL (70-99) Calcium Level 8.5 mg/dL (8.5-10.1) Phosphorus Level 4.2 mg/dL (2.6-4.7) Magnesium Level 1.9 mg/dL (1.8-2.4) Albumin 3.1 g/dL (3.4-5.0) Amylase Level 241 U/L (25-115) Lipase 1624 U/L (73-393) Microbiology 04/18/17 Blood Culture - Final, Complete NO GROWTH AFTER 5 DAYS Medications Current Medications Ondansetron HCl (Zofran) 4 mg 1X ONCE IV Last administered on 04/17/17 16:45 ; Start 04/17/17 at 16:45; Stop 04/17/17 at 16:46; Status DC Ondansetron HCl (Zofran) 4 mg PRN Q8HRS PRN IV NAUSEA/VOMITING Last administered on 04/17/17 17:26; Start 04/17/17 at 17:15; Stop 04/17/17 at 22:44 ; Status DC Hydralazine HCl (Apresoline) 10 mg PRN Q4HRS PRN IVP ELEVATED BP, SEE COMMENTS Last administered on 04/18/17 23:35; Start 04/17/17 at 18:15 Amlodipine Besylate (Norvasc) 10 mg DAILY PO Last administered on 04/23/17 09: 44; Start 04/18/17 at 09:00 Cinacalcet (Sensipar) 30 mg DAILYWLUN PO Last administered on 04/22/17 16:29; Start 04/18/17 at 12:00 Ciprofloxacin (Cipro) 500 mg DAILY PO ; Start 04/18/17 at 09:00; Stop 04/18/17 at 09:00; Status DC Clonidine HCl (Catapres) 0.1 mg PRN Q2HR PRN PO HYPERTENSION, SEE COMMENTS Last administered on 04/18/17 02:59; Start 04/17/17 at 19:45 Vitamin B Complex/ Vitamin C (Evelyn-Elsa) 1 tab DAILY PO Last administered on 09:40; Start 04/18/17 at 09:00 Latanoprost (Xalatan) 1 drop QHS OU Last administered on 04/22/17 20:33; Start 04/17/17 at 21:00 Lisinopril (Prinivil) 40 mg BID PO Last administered on 04/23/17 09:41; Start 04/17/17 at 21:00 Pantoprazole Sodium (Protonix) 40 mg DAILY07 PO ; Start 04/18/17 at 07:00; Stop 04/18/17 at 07:00; Status DC Sevelamer Carbonate (Renvela) 800 mg TIDWMEALS PO Last administered on 09:40; Start 04/17/17 at 20:00 Sucralfate (Carafate) 1 gm TIDAC PO Last administered on 04/23/17 07:56; Start 04/18/17 at 07:30 Zolpidem Tartrate (Ambien) 5 mg PRN QHS PRN PO INSOMNIA Last administered on 22:54; Start 04/17/17 at 19:45 Carvedilol (Coreg) 12.5 mg BIDWMEALS PO Last administered on 04/23/17 09:40; Start 04/17/17 at 20:00 Pantoprazole Sodium (Protonix) 40 mg DAILYAC PO ; Start 04/18/17 at 07:30; Stop 04/18/17 at 07:30; Status DC Fluticasone Propionate (Flonase) 2 spray DAILY NS Last administered on 09:39; Start 04/18/17 at 09:00 Fentanyl Citrate (Fentanyl 2ml Vial) 25 mcg PRN Q3HRS PRN IV PAIN Last administered on 04/22/17 07:40; Start 04/17/17 at 19:45 Acetaminophen (Tylenol) 650 mg PRN Q6HRS PRN PO PAIN Last administered on 07:56; Start 04/17/17 at 19:45 Pantoprazole Sodium (Protonix) 40 mg DAILYAC PO Last administered on 04/23/17 07:56; Start 04/17/17 at 22:00 Ondansetron HCl (Zofran) 4 mg PRN Q6HRS PRN IV NAUSEA/VOMITING Last administered on 04/18/17 08:04; Start 04/17/17 at 22:45; Stop 04/18/17 at 08:13 ; Status DC Sodium Chloride 1,000 ml @ 1,000 mls/hr Q1H PRN IV hypotension; Start 04/18/17 at 07:40; Stop 04/18/17 at 08:13; Status DC Diphenhydramine HCl (Benadryl) 25 mg 1X PRN PRN IV ITCHING; Start 04/18/17 at 07:45; Stop 04/19/17 at 07:44; Status DC Diphenhydramine HCl (Benadryl) 25 mg 1X PRN PRN IV ITCHING; Start 04/18/17 at 07:45; Stop 04/19/17 at 07:44; Status DC Sodium Chloride (Normal Saline Flush) 10 ml 1X PRN PRN IV AP catheter pack; Start 04/18/17 at 07:45; Stop 04/18/17 at 08:13; Status DC Sodium Chloride (Normal Saline Flush) 10 ml 1X PRN PRN IV BRINE MAKER catheter pack; Start 04/18/17 at 07:45; Stop 04/18/17 at 08:13; Status DC Sodium Chloride 1,000 ml @ 400 mls/hr Q2H30M PRN IV PATENCY; Start 04/18/17 at 07:40; Stop 04/18/17 at 08:13; Status DC Info (PHARMACY MONITORING -- do not chart) 1 each PRN DAILY PRN MC SEE COMMENTS ; Start 04/18/17 at 07:45; Stop 04/21/17 at 14:38; Status DC Sodium Chloride (Normal Saline Flush) 10 ml 1X PRN PRN IV AP catheter pack; Start 04/18/17 at 08:15 Ondansetron HCl (Zofran) 4 mg PRN Q8HRS PRN IV NAUSEA/VOMITING Last administered on 04/21/17 10:45; Start 04/18/17 at 17:00 Enoxaparin Sodium (Lovenox 30mg Syringe) 30 mg 1X ONCE SQ Last administered on 04/20/17 11:59; Start 04/20/17 at 10:00; Stop 04/20/17 at 10:01; Status DC Polyethylene Glycol (miraLAX PACKET) 17 gm TID PO Last administered on 09:39; Start 04/20/17 at 14:00 Magnesium Sulfate/ Dextrose 50 ml @ 25 mls/hr PRN DAILY PRN IV for Mag < 1.7 on am labs; Start 04/20/17 at 11:45 Ondansetron HCl (Zofran) 4 mg PRN Q6HRS PRN IV NAUSEA/VOMITING; Start 04/21/17 at 07:00; Stop 04/22/17 at 06:59; Status DC Lidocaine HCl 2 ml PRN 1X PRN ID PRIOR TO IV START; Start 04/21/17 at 07:00; Stop 04/22/17 at 06:59; Status DC Prochlorperazine Edisylate (Compazine) 5 mg PACU PRN PRN IV NAUSEA, MRX1; Start 04/21/17 at 07:00; Stop 04/22/17 at 06:59; Status DC Sodium Chloride 1,000 ml @ 0 mls/hr Q0M IV ; Start 04/21/17 at 07:45 Sodium Chloride 1,000 ml @ 1,000 mls/hr Q1H PRN IV hypotension; Start 04/20/17 at 15:00; Stop 04/20/17 at 20:59; Status DC Sodium Chloride (Normal Saline Flush) 10 ml 1X PRN PRN IV AP catheter pack; Start 04/20/17 at 15:00; Stop 04/21/17 at 14:59; Status DC Sodium Chloride (Normal Saline Flush) 10 ml 1X PRN PRN IV BRINE MAKER catheter pack; Start 04/20/17 at 15:00; Stop 04/21/17 at 14:59; Status DC Info (PHARMACY MONITORING -- do not chart) 1 each PRN DAILY PRN MC SEE COMMENTS ; Start 04/20/17 at 15:00; Stop 04/22/17 at 08:12; Status DC Cefazolin Sodium/ Dextrose 50 ml @ 100 mls/hr 1X PREOP PRN IV preop Last administered on 04/22/17 15:00; Start 04/22/17 at 06:00; Stop 04/22/17 at 18:00; Status DC Ondansetron HCl (Zofran) 4 mg PRN Q6HRS PRN IV NAUSEA/VOMITING Last administered on 04/22/17 13:10; Start 04/22/17 at 07:00; Stop 04/23/17 at 06:59; Status DC Ringer's Solution 1,000 ml @ 30 mls/hr Q24H IV ; Start 04/22/17 at 07:00; Stop 04/22/17 at 16:54; Status DC Lidocaine HCl 2 ml PRN 1X PRN ID PRIOR TO IV START; Start 04/22/17 at 07:00; Stop 04/23/17 at 06:59; Status DC Prochlorperazine Edisylate (Compazine) 5 mg PACU PRN PRN IV NAUSEA, MRX1 Last administered on 04/22/17 15:28; Start 04/22/17 at 07:00; Stop 04/23/17 at 06:59; Status DC Cellulose 1 each STK-MED ONCE .ROUTE ; Start 04/22/17 at 07:51; Stop 04/22/17 at 07:52; Status DC Papaverine HCl 60 mg STK-MED ONCE .ROUTE ; Start 04/22/17 at 07:51; Stop 04/22/17 at 07:52; Status DC Lidocaine HCl 20 ml STK-MED ONCE .ROUTE Last administered on 04/22/17 13:57; Start 04/22/17 at 07:51; Stop 04/22/17 at 07:52; Status DC Sodium Chloride 1,000 ml @ 1,000 mls/hr Q1H PRN IV hypotension; Start 04/22/17 at 08:07; Stop 04/22/17 at 14:06; Status DC Sodium Chloride (Normal Saline Flush) 10 ml 1X PRN PRN IV AP catheter pack; Start 04/22/17 at 08:15; Stop 04/23/17 at 08:14; Status DC Sodium Chloride (Normal Saline Flush) 10 ml 1X PRN PRN IV BRINE MAKER catheter pack; Start 04/22/17 at 08:15; Stop 04/23/17 at 08:14; Status DC Info (PHARMACY MONITORING -- do not chart) 1 each PRN DAILY PRN MC SEE COMMENTS ; Start 04/22/17 at 08:15 Cellulose 1 each STK-MED ONCE .ROUTE ; Start 04/22/17 at 10:14; Stop 04/22/17 at 10:15; Status DC Papaverine HCl 60 mg STK-MED ONCE .ROUTE ; Start 04/22/17 at 10:14; Stop 04/22/17 at 10:15; Status DC Lidocaine HCl 20 ml STK-MED ONCE .ROUTE ; Start 04/22/17 at 10:15; Stop 04/22/17 at 10:16; Status DC Lidocaine HCl 20 ml STK-MED ONCE .ROUTE ; Start 04/22/17 at 10:15; Stop 04/22/17 at 10:16; Status DC Heparin Sodium (Porcine) 5000 unit/Sodium Chloride 505 ml @ 505 mls/hr 1X PERIOP ONCE IRR Last administered on 04/22/17 14:00; Start 04/22/17 at 11:00; Stop 04/22/17 at 11:59; Status DC Cefazolin Sodium 1 gm/Sodium Chloride 500 ml @ 500 mls/hr 1X PERIOP ONCE IRR ; Start 04/22/17 at 11:00; Stop 04/22/17 at 11:59; Status DC Sodium Chloride 1,000 ml @ 75 mls/hr [id number] IV Last administered on 04/22/17t 12:20; Start 04/22/17 at 12:45 Cellulose 1 each STK-MED ONCE .ROUTE ; Start 04/22/17 at 12:45; Stop 04/22/17 at 12:46; Status DC Lidocaine HCl 20 ml STK-MED ONCE .ROUTE ; Start 04/22/17 at 12:45; Stop 04/22/17 at 12:46; Status DC Heparin Sodium (Porcine) (Heparin Sodium) 10,000 unit STK-MED ONCE .ROUTE ; Start 04/22/17 at 14:25; Stop 04/22/17 at 14:26; Status DC Ondansetron HCl (Zofran) 4 mg STK-MED ONCE .ROUTE ; Start 04/22/17 at 15:07; Stop 04/22/17 at 15:08; Status DC Prochlorperazine Edisylate (Compazine) 10 mg STK-MED ONCE .ROUTE ; Start at 15:19; Stop 04/22/17 at 15:20; Status DC Active Scripts Active Zofran (Ondansetron Hcl) 4 Mg Tablet 1 Tab PO Q6HRS Reported Nexium Capsule (Esomeprazole Magnesium) 20 Mg Capsule.dr 1 Cap PO DAILY Zolpidem Tartrate 5 Mg Tablet 5 Mg PO PRN QHS PRN Lisinopril 40 Mg Tablet 1 Tab PO BID Latanoprost 2.5 Ml Drops 1 Drop EACHEYE QHS Pantoprazole Sodium 40 Mg Tablet.dr 40 Mg PO DAILY Sensipar (Cinacalcet Hcl) 30 Mg Tablet 30 Mg PO DAILYWLUN Renvela (Sevelamer Carbonate) 800 Mg Tablet 800 Mg PO TIDWMEALS Nephro-Elsa Tablet (Folic Acid/Vitamin B Comp W-C) 0.8 Mg Tablet 1 Tab PO DAILY Nasonex (Mometasone Furoate) 17 Gm [place].pump 2 Sprays NS DAILY Clonidine Hcl 0.1 Mg Tablet 0.1 Mg PO PRN Q2HR PRN Carvedilol 25 Mg Tablet 12.5 Mg PO BIDWMEALS Carafate (Sucralfate) 1 Gm Tablet 1 Gm PO TIDAC Amlodipine Besylate 10 Mg Tablet 10 Mg PO DAILY Vitals/I & O Vital Sign - Last 24 Hours 04/22/17 04/22/17 04/22/17 04/22/17 12:31 15:12 15:12 15:27 Temp 98.5 97.6 98.5 97.6 Pulse 61 64 64 Resp 14 20 20 B/P (MAP) 140/81 179/72 188/81 Pulse Ox 99 100 100 O2 Delivery Room Air Nasal Cannula Nasal Cannula Nasal Cannula O2 Flow Rate 2 2 2 04/22/17 04/22/17 04/22/17 04/22/17 15:42 16:00 16:15 16:29 Temp 98.2 98.2 Pulse 63 68 61 60 Resp 20 20 16 B/P (MAP) 188/81 177/79 166/86 (112) 175/84 Pulse Ox 100 100 96 O2 Delivery Nasal Cannula Nasal Cannula Room Air O2 Flow Rate 2 2 04/22/17 04/22/17 04/22/17 04/22/17 16:30 16:30 16:45 17:15 Pulse 60 56 55 59 B/P (MAP) 175/84 175/84 (114) 156/73 (100) 181/80 (113) 04/22/17 04/22/17 04/22/17 04/22/17 17:45 19:00 20:00 20:42 Temp 97.5 97.5 Pulse 61 65 60 B/P (MAP) 157/77 (103) 179/76 (110) 179/76 O2 Delivery Room Air 04/22/17 04/23/17 04/23/17 04/23/17 22:57 03:00 07:00 09:40 Temp 98.8 98.1 98.2 98.8 98.1 98.2 Pulse 64 59 66 66 Resp 20 20 16 B/P (MAP) 151/80 (103) 156/75 (102) 128/59 (82) 128/59 Pulse Ox 95 97 98 O2 Delivery Room Air Room Air Room Air 04/23/17 04/23/17 04/23/17 04/23/17 09:41 09:44 10:30 10:35 Pulse 66 66 58 72 B/P (MAP) 128/59 128/59 134/59 (84) 102/91 (95) 04/23/17 04/23/17 10:45 10:50 Temp 98.3 98.3 Pulse 76 56 Resp 17 17 B/P (MAP) 143/68 (93) 97/63 (74) Pulse Ox 98 100 O2 Delivery Room Air Room Air Intake and Output 04/22/17 04/22/17 04/23/17 15:00 23:00 07:00 Intake Total 250 ml 0 ml Output Total 10 ml 200 ml Balance 240 ml -200 ml Problem List Problems Medical Problems: (1) R11.0 Status: Acute Assessment Abd pain- with pancreatitis, clinically improving, CPM, disposition plans per primary LISA MAYEN MD Apr 23, 2017 11:06
[2017-04-23] MEDS: CINACALCET HCL 30 MG TABLET PO SCH (11:34)
[2017-04-23] MEDS: LISINOPRIL 20 MG TABLET PO SCH (20:39)
[2017-04-23] MEDS: LATANOPROST 0.005% OPHTH SOLUTION 2.5ML BOTTLE. OU SCH (20:39)
[2017-04-23] MEDS: ZOLPIDEM 5 MG TABLET. PO PRN (20:53)
[2017-04-24] MEDS: IV NORMAL SALINE 1000ML BAG 1,000 ML IV SCH (04:45)
[2017-04-24 07:00] VITALS: BP 139/68
[2017-04-24 07:10] LABS: ALBUMIN 3.1 g/dL (3.4-5.0); CALCIUM 8.6 mg/dL (8.5-10.1); CREATININE 7.4 mg/dL (0.6-1.0); GFR 6.6; PHOSPHORUS 3.9 mg/dL (2.6-4.7); POTASSIUM 4.2 mmol/L (3.5-5.1)
[2017-04-24] MEDS: SUCRALFATE 1 GM TABLET. PO SCH ×2 (07:30→11:54)
--- NOTE | 2017-04-24 07:44 | PDOC ---
Provider Note Provider Note AF VSS awake and alert, currently on dialysis right antecubital incision intact with no erythema/drainage, no hematoma, fistula with thrill A/P s/p right upper arm brachiobasilic fistula - continue dialysis with permacath - plan follow up with Dr. Gordilol in 3 weeks with a right arm fistula duplex, will need basilic vein transposition if the vein is maturing well JAZZ WESTFALL MD Apr 24, 2017 07:44
[2017-04-24] MEDS: SEVELAMER CARBONATE 800 MG TABLET. PO SCH ×2 (08:00→11:54)
[2017-04-24] MEDS: ONDANSETRON PF 4 MG/2 ML VIAL. IV PRN (08:31)
--- NOTE | 2017-04-24 08:37 | PDOC ---
PROGRESS NOTES Subjective Subjective dizzy ,orthostatic yesterday Objective Objective Vital Signs Date Time Temp Pulse Resp B/P (MAP) Pulse Ox O2 Delivery O2 Flow Rate FiO2 04/24/17 07:00 97.9 64 16 139/68 (91) 99 Room Air 97.9 Intake and Output 04/24/17 07:00 Intake Total 474 ml Balance 474 ml Intake Oral 474 ml Physical Exam Abdomen: Normal bowel sounds, Soft, No tenderness Heart: Regular rate, Normal S1, Normal S2, No murmurs Extremities: No edema, Normal pulses General: Alert, Oriented X3, Cooperative, No acute distress HEENT: Atraumatic, PERRLA Lungs: Clear to auscultation, Normal air movement MUSCULOSKELETAL: No deformity, No swelling Neck: Supple Neuro: Normal speech Psych/Mental Status: Mental status NL Skin: No rashes, Other (Notable subcutaneous right forearm dialysis access without bruit or thrill. IV access to left neck. Dialysis catheter located in right lower chest.) Diagnosis Problem List Problems Medical Problems: (1) R11.0 Status: Acute Assessment Assessment dizziness with orthostatic hypotension yesterday 1.Pancreatitis,?Gall stones gravel. 2. hypertensive urgency 3. ESRD HD 3times weekly 4. chills without fever 5. diastolic CHF EF normal not acute 6. GERD 7. glaucoma 8. moderate weakness and debility 9. moderate chronic weakness and debility 10. thrombocytopenia PLAN: dec amlodipine+lisinopril doses due to hypotension dialysis today. d/c to SNU today AV shunt placed 04/22/17 after dialysis blood c/s neg. spoke with renal amylase down+lipase elevate today,clinically improved, will monitor labs out pt. vomiting improved CT abdomen/pelvis wo contrast -small gal stones gravel, stable renal mass rt kidney 3,6 cm from 2010, uterine fibroid+ Abd sono- neg Problems: Plan Plan of Care Problems Medical Problems: (1) R11.0 Status: Acute Comment Review of Relevant I have reviewed the following items dorina (where applicable) has been applied. Labs Laboratory Tests Test 04/23/17 11:23 04/23/17 16:34 04/23/17 20:32 04/24/17 06:05 Glucose (Fingerstick) 132 mg/dL (70-99) 86 mg/dL (70-99) 140 mg/dL (70-99) Sodium Level 136 mmol/L (136-145) Potassium Level 4.2 mmol/L (3.5-5.1) Chloride Level 97 mmol/L (98-107) Carbon Dioxide Level 27 mmol/L (21-32) Anion Gap 12 (6-14) Blood Urea Nitrogen 32 mg/dL (7-20) Creatinine 7.4 mg/dL (0.6-1.0) Estimated GFR (Cockcroft-Gault) 6.6 Glucose Level 94 mg/dL (70-99) Calcium Level 8.6 mg/dL (8.5-10.1) Phosphorus Level 3.9 mg/dL (2.6-4.7) Magnesium Level 2.1 mg/dL (1.8-2.4) Albumin 3.1 g/dL (3.4-5.0) Test 04/24/17 07:02 Glucose (Fingerstick) 101 mg/dL (70-99) Microbiology 04/18/17 Blood Culture - Final, Complete NO GROWTH AFTER 5 DAYS Medications Current Medications Amlodipine Besylate (Norvasc) 5 mg DAILY PO ; Start 04/24/17 at 09:00 Lisinopril (Prinivil) 20 mg BID PO Last administered on 04/23/17t 20:39; Start 04/23/17 at 21:00 Vitals/I & O Vital Sign - Last 24 Hours 04/23/17 04/23/17 04/23/17 04/23/17 09:40 09:41 09:44 10:30 Pulse 66 66 66 58 B/P (MAP) 128/59 128/59 128/59 134/59 (84) 04/23/17 04/23/17 04/23/17 04/23/17 10:35 10:45 10:50 14:37 Temp 98.3 98.6 98.3 98.6 Pulse 72 76 56 50 Resp 17 17 B/P (MAP) 102/91 (95) 143/68 (93) 97/63 (74) 112/77 (89) Pulse Ox 98 100 97 O2 Delivery Room Air Room Air Room Air 04/23/17 04/23/17 04/23/17 04/23/17 16:50 19:00 20:00 20:39 Temp 98.6 98.6 Pulse 50 60 60 Resp 18 B/P (MAP) 112/77 135/69 (91) 135/69 Pulse Ox 96 O2 Delivery Room Air Room Air 04/23/17 04/24/17 22:45 07:00 Temp 98.6 97.9 98.6 97.9 Pulse 61 64 Resp 18 16 B/P (MAP) 134/67 (89) 139/68 (91) Pulse Ox 94 99 O2 Delivery Room Air Room Air Intake and Output 04/23/17 04/23/17 04/24/17 15:00 23:00 07:00 Intake Total 354 ml 120 ml Balance 354 ml 120 ml YARY FAIRCHILD MD Apr 24, 2017 08:37
[2017-04-24] MEDS ORDERED: IV NORMAL SALINE 1000ML BAG 1,000 ML IV PRN (08:41)
[2017-04-24] MEDS ORDERED: AMLO5TAB2 PO (08:42)
[2017-04-24] MEDS ORDERED: LISI-334 PO (08:42)
[2017-04-24] MEDS ORDERED: DIALYSIS PATIENT. MC PRN ×2 (08:45)
--- NOTE | 2017-04-24 08:47 | PDOC ---
Provider Note Provider Note Discharge summary dictated. #[id number] YRAY FAIRCHILD MD Apr 24, 2017 08:46
[2017-04-24] MEDS: POLYETHYLENE GLYCOL 3350 17 GM PACKET. PO SCH (09:00)
[2017-04-24] MEDS ORDERED: amLODIPine BESYLATE 5 MG TABLET PO SCH (09:00)
--- NOTE | 2017-04-24 09:21 | DS ---
DATE OF DISCHARGE: 04/24/2017 REASON FOR ADMISSION TO THE HOSPITAL: Nausea, vomiting, abdominal pain and pancreatitis. CONSULTATIONS: 1. Dr. Eng. 2. Dr. Cavazos, Renal. 3. Dr. Felder, Vascular. PROCEDURES DONE: 1. Hemodialysis. 2. CT of the abdomen and pelvis. 3. Vein mapping, upper extremities. 4. Right upper extremity brachial basilic AV fistula .. COMPLICATIONS NOTED: None. HOSPITAL COURSE: The patient is a 71-year-old female who came with abdominal pain, nausea, vomiting, was found to have elevated lipase, diagnosed with pancreatitis. The patient had CT scan of the abdomen and pelvis shows a cyst in the kidney, right, which is the same size as before and no pancreatic mass and gallbladder shows some gravel in the gallbladder and the patient was doing relatively well and seen by GI and started on clear liquid diet, advance as tolerated. Her lipase is fluctuating up and down, but the patient is asymptomatic and it was felt that watch and see how she does. The patient was dialyzed while she was in the hospital Thursday, Thursday and Thursday. She also had AV mapping done for AV shunt and AV shunt was placed while she was in the hospital. On the whole, patient's condition improved. She has developed some dizziness, lightheaded with orthostatic hypotension, was seen by Physical Therapy, cut down the dose of amlodipine and lisinopril. The patient is being discharged to [facility] for 2-3 weeks to monitor her blood pressure and Physical therapy. FINAL DIAGNOSES: 1. Abdominal pain secondary to pancreatitis. 2. Creation of arteriovenous fistula for dialysis. 3. End-stage renal disease, on dialysis 3 times a week. 4. Hypertension. 5. Hyperlipidemia. 6. Orthostatic hypotension. DISPOSITION: To [facility]. [facility] for [facility] medications. Monitor amylase and lipase as an outpatient weekly. YARY FAIRCHILD MD DR: SAM/kailee JOB#: [id number] / [id number] LIN
[2017-04-24 11:48] VITALS: BP 131/68
[2017-04-24] MEDS: FOLIC/VIT B COMP W-C (RENAL) TABLET. PO SCH (11:54)
[2017-04-24] MEDS: ACETAMINOPHEN 325 MG TABLET. PO PRN (11:54)
[2017-04-24] MEDS: LISINOPRIL 20 MG TABLET PO SCH (11:54)
[2017-04-24] MEDS: PANTOPRAZOLE 40 MG TABLET.DR. PO SCH (11:54)
[2017-04-24 11:55] VITALS: BP 131/68
[2017-04-24] MEDS: CARVEDILOL 12.5 MG TABLET. PO SCH (11:55)
[2017-04-24] MEDS: CINACALCET HCL 30 MG TABLET PO SCH (11:55)
[2017-04-24] MEDS: FLUTICASONE 50MCG/NASAL SPRAY 16GM BOTTLE. NS SCH (11:59)
== END 2017-04-24 12:54 | DRG 981 ==
LOC: ER 15:16 → 5 NORTH 17:06 → OBSVTOIN 04-20 09:52 → 5 SOUTH 04-22 14:38
PROVIDERS: ADMIT Internal Medicine; ATTEND Internal Medicine
PROC: 5A1D00Z (ICD-10-PCS; 2017-04-22)
PROC: 03170ZD Bypass Right Brachial Artery to Upper Arm Vein, Open Approach (ICD-10-PCS; principal; 2017-04-22 13:05)
DX: K85.90 Acute pancreatitis without necrosis or infection, unspecified (principal); N18.6 End stage renal disease; I50.30 Unspecified diastolic (congestive) heart failure; N25.81 Secondary hyperparathyroidism of renal origin; I13.2 Hypertensive heart and chronic kidney disease with heart failure and with stage 5 chronic kidney disease, or end stage renal disease; I16.0 Hypertensive urgency; D69.6 Thrombocytopenia, unspecified; E11.22 Type 2 diabetes mellitus with diabetic chronic kidney disease; E78.5 Hyperlipidemia, unspecified; H40.9 Unspecified glaucoma; I95.1 Orthostatic hypotension; Z96.653 Presence of artificial knee joint, bilateral; K21.9 Gastro-esophageal reflux disease without esophagitis; K80.20 Calculus of gallbladder without cholecystitis without obstruction; Z82.3 Family history of stroke; Z82.49 Family history of ischemic heart disease and other diseases of the circulatory system; Z99.2 Dependence on renal dialysis; Z88.6 Allergy status to analgesic agent; Z88.8 Allergy status to other drugs, medicaments and biological substances
CPT/HCPCS: 36415; 70450; 74000; 74176; 76700; 80048; 80053; 80069; 80076; 82150; 82248; 82962; 83605; 83690; 83735; 84100; 84484; 85027; 87040; 93005; 93970; G0378; G0379; J0360; J0690; J0780; J1644; J1650; J2405; J2440; J3010; J7030; J7040; 97116; 97530; 97535

== ENCOUNTER 2017-08-02 11:32 | Inpatient (IN) | payer MEDICARE, BC ==
[~2017-08-02] VITALS: Ht 167.6 cm; Wt 84.5 kg
[~2017-08-02 11:32] MED LIST changes: +AMLO5TAB2 PO; -IBUP200T43 PO; +IBUP200T44 PO; +LISI-334 PO; -NAPR500T3 PO; +NAPR500T4 PO; +PANT40TA3 PO
--- NOTE | 2017-08-02 12:36 | EKG ---
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
--- NOTE | 2017-08-02 12:41 | PHYS DOC ---
Past Medical History Past Medical History: Diabetes-Type II, GERD, Hypertension, Renal Failure, Other Additional Past Medical Histor: ESRF Past Surgical History: Knee Replacement, Other Additional Past Surgical Histo: Bx cataracts, R Carpal, R arm fistula, Axillary /Head tumor, Bx knee, Alcohol Use: None Drug Use: None Adult General Chief Complaint Chief Complaint: SHORTNESS OF BREATH HPI HPI Patient is a 71 year old F who presents with increased shortness of breath. Patient states she was seen by her family doctor earlier in the week and was diagnosed with a URI and was not placed on antibiotics. Patient states her shortness of breath as gotten worse especially when she gets up and walks. Patient denies any chest pain. Patient denies any fever. Patient is a dialysis patient dialyzes Thursday, Thursday and Thursday. Patient states when she sitting down she has no symptoms. Patient has no other complaints. Review of Systems Review of Systems GEN: Denies fevers, chills, sweats HEENT: Denies blurred vision, sore throat CV: Denies chest pain RESP: Shortness of breath GI: Denies n/v/d NEURO: Denies confusion, dizziness MSK: Denies weakness, joint pain/swelling All other systems were reviewed and found to be within normal limits, except as documented in this note. Current Medications Current Medications Current Medications Medications (Trade) Dose Ordered Sig/Any Start Time Stop Time Status Last Admin Dose Admin Acetaminophen (Tylenol) 650 mg PRN Q4HRS PRN 08/02/17 13:30 08/03/17 13:29 UNV Ondansetron HCl (Zofran) 4 mg PRN Q8HRS PRN 08/02/17 13:30 08/03/17 13:29 UNV Piperacillin Sod/ Tazobactam Sod (Zosyn Per Pharmacy) 1 each PRN DAILY PRN 08/02/17 13:00 Piperacillin Sod/ Tazobactam Sod (Zosyn) 2.25 gm 1X ONCE 08/02/17 13:30 08/02/17 13:31 DC Vancomycin HCl (Vanco Per Pharmacy) 1 each PRN DAILY PRN 08/02/17 13:00 Vancomycin HCl 2 gm/Dextrose 500 ml @ 250 mls/hr 1X ONCE 08/02/17 13:30 08/02/17 15:29 Allergies Allergies Allergies Coded Allergies Type Severity Reaction Last Updated Verified chlorhexidine Allergy Intermediate Rash 04/22/17 Yes Opioids - Morphine Analogues Adverse Reaction Intermediate Nausea and Vomiting 04/22/17 Yes Opioids-Meperidine and Related Adverse Reaction Intermediate Nausea and Vomiting 04/22/17 Yes Opioids-Methadone and Related Adverse Reaction Intermediate Nausea and Vomiting 04/22/17 Yes codeine Adverse Reaction Intermediate Nausea and Vomiting 04/22/17 Yes Physical Exam Physical Exam GEN.: No apparent distress. Alert and oriented. HEENT: Head is normocephalic, atraumatic NECK: Supple. LUNGS: Decreased breath sounds bilaterally. HEART: RRR, S1, S2 present. Peripheral pulses intact ABDOMEN: Soft, nontender. Positive bowel sounds. EXTREMITIES: Without any cyanosis. Fistula right upper extremity with a auscultated bruit and a palpated thrill NEUROLOGIC: Normal speech, normal tone PSYCHIATRIC: Normal affect, normal mood. SKIN: No ulcerations Current Patient Data Vital Signs Vital Signs Date Time Temp Pulse Resp B/P (MAP) Pulse Ox O2 Delivery O2 Flow Rate FiO2 08/02/17 12:05 97.5 65 25 186/88 (120) 96 Room Air 97.5 Lab Values Laboratory Tests Test 08/02/17 13:00 White Blood Count 5.2 x10^3/uL (4.0-11.0) Red Blood Count 3.52 x10^6/uL (3.50-5.40) Hemoglobin 11.1 g/dL (12.0-15.5) L Hematocrit 34.3 % (36.0-47.0) L Mean Corpuscular Volume 97 fL (79-100) Mean Corpuscular Hemoglobin 32 pg (25-35) Mean Corpuscular Hemoglobin Concent 33 g/dL (31-37) Red Cell Distribution Width 14.6 % (11.5-14.5) H Platelet Count 172 x10^3/uL (140-400) Neutrophils (%) (Auto) 72 % (31-73) Lymphocytes (%) (Auto) 19 % (24-48) L Monocytes (%) (Auto) 5 % (0-9) Eosinophils (%) (Auto) 3 % (0-3) Basophils (%) (Auto) 1 % (0-3) Neutrophils # (Auto) 3.8 x10^3uL (1.8-7.7) Lymphocytes # (Auto) 1.0 x10^3/uL (1.0-4.8) Monocytes # (Auto) 0.3 x10^3/uL (0.0-1.1) Eosinophils # (Auto) 0.1 x10^3/uL (0.0-0.7) Basophils # (Auto) 0.0 x10^3/uL (0.0-0.2) Laboratory Tests 08/02/17 13:00 EKG EKG 1234: EKG shows sinus bradycardia rate of 55 no STEMI[] Radiology/Procedures Radiology/Procedures Chest x-ray: IMPRESSION: 1. Stable diffuse lower lobe predominant interstitial infiltrate. 2. Increase in small bilateral pleural effusions. 3. Stable enlargement of the cardiac silhouette.[] Course & Med Decision Making Course & Med Decision Making Pertinent Labs and Imaging studies reviewed. (See chart for details) ED course: Patient was seen and examined emergency room CBC, CMP, blood cultures, lactic acid, EKG, chest x-ray were ordered 1310: Patient was updated on x-ray findings for pneumonia and plan to admit to the hospital for IV antibiotics 1317: Discussed CC/HP/PMH with Dr. Roper and recommends admit [] [] Dragon Disclaimer Dragon Disclaimer This electronic medical record was generated, in whole or in part, using a voice recognition dictation system. Departure Departure Impression: Primary Impression: Pneumonia Additional Impression: ESRD (end stage renal disease) Disposition: ADMITTED INPATIENT Admitting Physician: Mayco Roper Condition: LEFT WITHOUT BEING SEEN Referrals: YARY FAIRCHILD MD (PCP) Problem Qualifiers SALVADOR NARVAEZ DO Aug 02, 2017 12:41
--- NOTE | 2017-08-02 12:52 | RAD ---
EXAM: Chest, single view. HISTORY: Shortness of breath. COMPARISON: 07/25/2017. FINDINGS: A frontal view of the chest is obtained. There is stable diffuse lower lobe predominant infiltrate. There has been slight interval increase in small pleural effusions. There is stable enlargement of the cardiac silhouette. There is a catheter with the tip in the superior cava. There is severe degenerative change involving the right shoulder. IMPRESSION: 1. Stable diffuse lower lobe predominant interstitial infiltrate. 2. Increase in small bilateral pleural effusions. 3. Stable enlargement of the cardiac silhouette.
[2017-08-02] MEDS ORDERED: PIP/TAZO PER PHARMACY MC PRN (13:00)
[2017-08-02 13:16] LABS: BASO % 1 % (0-3); EOS % 3 % (0-3); HEMATOCRIT 34.3 % (36.0-47.0); HEMOGLOBIN 11.1 g/dL (12.0-15.5); LYMPH % 19 % (24-48); MEAN CORPUSCULAR HEMOGLOBIN 32 pg (25-35); MEAN CORPUSCULAR HGB CONC 33 g/dL (31-37); MEAN CORPUSCULAR VOLUME 97 fL (79-100); MONO % 5 % (0-9); NEUT % 72 % (31-73); PLATELET COUNT 172 x10^3/uL (140-400); RED BLOOD COUNT 3.52 x10^6/uL (3.50-5.40); RED CELL DISTRIBUTION WIDTH 14.6 % (11.5-14.5); WHITE BLOOD COUNT 5.2 x10^3/uL (4.0-11.0)
[2017-08-02] MEDS ORDERED: ACETAMINOPHEN 325 MG TABLET. PO PRN (13:30)
[2017-08-02] MEDS ORDERED: PIPERACILLIN/TAZO IV Push 2.25 GM VIAL. IVP ONE (13:30)
[2017-08-02] MEDS ORDERED: VANCOMYCIN 2 GM in IV DEXTROSE 5% 500 ML IV ONE (13:30)
[2017-08-02] MEDS ORDERED: ONDANSETRON PF 4 MG/2 ML VIAL. IV PRN (13:30)
[2017-08-02 13:32] LABS: CALCIUM 9.8 mg/dL (8.5-10.1); CREATININE 10.6 mg/dL (0.6-1.0); GFR 4.4; POTASSIUM 5.3 mmol/L (3.5-5.1)
[2017-08-02 13:37] LABS: ALBUMIN 3.7 g/dL (3.4-5.0); ALBUMIN/GLOBULIN RATIO 0.8 (1.0-1.7); TOTAL BILIRUBIN 0.7 mg/dL (0.2-1.0); TOTAL PROTEIN 8.2 g/dL (6.4-8.2)
[2017-08-02] MEDS ORDERED: DIALYSIS PATIENT. MC PRN (14:00)
[2017-08-02 16:25] VITALS: BP 183/76
[2017-08-02] MEDS: VANCOMYCIN PER PHARMACY MC PRN (17:49)
[2017-08-02 19:00] VITALS: BP 147/78
[2017-08-02] MEDS ORDERED: cloNIDine HCL 0.1 MG TABLET PO PRN (19:30)
[2017-08-02] MEDS ORDERED: ACET325T9 PO (19:35)
[2017-08-02] MEDS: LATANOPROST 0.005% OPHTH SOLUTION 2.5ML BOTTLE. OU SCH (20:52)
[2017-08-02] MEDS: CARVEDILOL 12.5 MG TABLET. PO SCH (20:54)
[2017-08-02] MEDS: LISINOPRIL 20 MG TABLET PO SCH (20:54)
[2017-08-02] MEDS: amLODIPine BESYLATE 5 MG TABLET PO SCH (20:55)
[2017-08-02] MEDS: ZOLPIDEM 5 MG TABLET. PO PRN (22:10)
[2017-08-02] MEDS: PIPERACILLIN/TAZO IV Push 2.25 GM VIAL. IVP SCH (22:10)
[2017-08-02] MEDS: FLUTICASONE 50MCG/NASAL SPRAY 16GM BOTTLE. NS SCH (22:12)
[2017-08-02 23:00] VITALS: BP 169/65
[2017-08-03 02:54] VITALS: BP 114/66
[2017-08-03] MEDS: PIPERACILLIN/TAZO IV Push 2.25 GM VIAL. IVP SCH ×3 (06:24→23:54)
[2017-08-03 07:00] VITALS: BP 186/87
[2017-08-03] MEDS ORDERED: PANTOPRAZOLE 40 MG TABLET.DR. PO SCH (07:30)
[2017-08-03] MEDS: CARVEDILOL 12.5 MG TABLET. PO SCH ×2 (08:44→18:29)
[2017-08-03] MEDS: LISINOPRIL 20 MG TABLET PO SCH ×2 (08:44→20:57)
[2017-08-03] MEDS: FOLIC/VIT B COMP W-C (RENAL) TABLET. PO SCH (08:44)
[2017-08-03] MEDS: SEVELAMER CARBONATE 800 MG TABLET. PO SCH ×3 (08:44→18:28)
[2017-08-03] MEDS: PANTOPRAZOLE 40 MG TABLET.DR. PO SCH (08:44)
[2017-08-03] MEDS: SUCRALFATE 1 GM TABLET. PO SCH ×3 (08:44→18:28)
[2017-08-03] MEDS: amLODIPine BESYLATE 5 MG TABLET PO SCH (08:45)
[2017-08-03] MEDS: FLUTICASONE 50MCG/NASAL SPRAY 16GM BOTTLE. NS SCH (08:45)
[2017-08-03] MEDS ORDERED: NON FORMULARY ITEM (Esomeprazole Magnesium (Nexium Capsule) 1 CAP) PO SCH (09:00)
[2017-08-03] MEDS ORDERED: FLUTICASONE 50MCG/NASAL SPRAY 16GM BOTTLE. NS SCH (09:00)
[2017-08-03] MEDS ORDERED: ENOXAPARIN 40 MG/0.4 ML SYRINGE. SQ SCH (10:15)
--- NOTE | 2017-08-03 10:22 | PDOC ---
Provider Note Provider Note Pt seen.H&P dictated. #[id number] YARY FAIRCHILD MD Aug 03, 2017 10:22
[2017-08-03] MEDS ORDERED: ALBUTEROL SULFATE 2.5 MG/3 ML NEBU. NEB PRN (10:30)
--- NOTE | 2017-08-03 10:55 | HP ---
ADMIT DATE: 08/02/2017 REASON FOR ADMISSION TO THE HOSPITAL: Shortness of breath, fluid overload. HISTORY OF PRESENT ILLNESS: The patient is a 71-year-old female. The patient has history of renal failure on hemodialysis 3 times a week. She has also diastolic dysfunction. Echo last 6 months ago shows a good left ventricular function. She was having shortness of breath. She was admitted 2 weeks ago because of problem with dialysis machine. At that time, she was dialyzed the next day and she felt much better, was discharged 10 days ago. She was having shortness of breath over the weekend, Thursday, got progressively worse, Thursday and Thursday, decided to come to the hospital Thursday. Chest x-ray shows CHF, pleural effusion, possible interstitial lung disease. The patient was admitted to the hospital for further investigation and treatment. PAST MEDICAL HISTORY: As mentioned above, she was in the hospital 10 days ago for fluid overload. She has a diastolic heart function, end-stage renal disease on dialysis Thursday, Thursday, Thursday, anemia, arthritis, glaucoma, hyperparathyroidism secondary. PAST SURGICAL HISTORY: AV fistula right arm, cataract surgery, total knee replacement, had an infected dialysis catheter, which was removed in the past. FAMILY HISTORY: Positive for diabetes, hypertension, stroke. SOCIAL HISTORY: No history of smoking, alcohol or drug abuse. REVIEW OF SYMPTOMS: CARDIAC: No chest pain, shortness of breath. GASTROINTESTINAL: No nausea, vomiting. PULMONOLOGY: Has some clear mucus. No green or yellow phlegm. No fever, short of breath and atrophied. Rest of the 14-system was reviewed and negative. ALLERGIES: MORPHINE, DEMEROL, METHADONE, CHLORHEXIDINE and CODEINE. MEDICATIONS: Coreg 25 mg half a tablet twice a day, Sensipar 30 mg daily, clonidine p.r.n., Nexium 40 mg daily, Nephro-Elsa daily, Nasonex daily, Protonix 40 mg daily, Renvela 800 mg 3 times daily, Carafate 1 gram daily, Ambien 5 mg daily, lisinopril 20 mg twice a day, amlodipine 5 mg daily, eyedrops latanoprost 0.5 daily per eyes. PHYSICAL EXAMINATION: GENERAL: The patient is coughing some clear stuff, short of breath visibly. VITAL SIGNS: Temperature 97, pulse 65, respirations 25, blood pressure 186/88, 96 on room air. HEENT: Head is atraumatic. Pupils equal. Oral cavity: No congestion. NECK: Supple. Thyroid not enlarged. JVD not elevated. CHEST: Symmetrical. CARDIOVASCULAR: S1, S2. LUNGS: Bilateral crackles, one-third at the base. Occasional wheezing. ABDOMEN: Soft, bowel sounds present, no mass palpable. EXTERNAL GENITALIA: No Holloway. RECTAL: Deferred. EXTREMITIES: The patient has scars of knee replacement, AV shunt in the right arm and dialysis access in the right side of the chest. No signs of infection from the dialysis catheter. LABORATORY DATA: Shows a white count of 5, hemoglobin 11, platelets 172. Electrolytes show sodium 141, potassium 5.3, chloride 103, bicarbonate 23, BUN 86, creatinine 10.6, glucose 90. LFTs were normal. Troponin was negative. Chest x-ray shows interstitial infiltrates, pleural effusions, enlargement of the cardiac shadow. EKG negative for ischemia. FINAL IMPRESSION: 1. Shortness of breath secondary to multifactorial.?flash pul edema. 2. Diastolic heart failure. Echocardiogram done 6 months ago showed good left ventricular function, 50%. 3. End-stage renal disease on hemodialysis Thursday, Thursday, Thursday. I am not sure if she is sticking to fluid restrictions. 4. Chest x-ray suggestive of interstitial lung infiltrates. We will have CT of the chest, high resolution and pulmonary consult. 5. Hypertension. 6. Arthritis. 7. Hyperlipidemia. PLAN: At this time was admit to the hospital. I spoke to dialysis unit as well as renal. We will get dialysis today. We will get echocardiogram to rule out myocardial infarction. Cardiology evaluation again, CT chest as well as pulmonary consult and DVT prophylaxis and see how the patient's condition improves. At this point, does not look like any pneumonia. No fever. White count was normal. Sputum is clear. We will watch and see how she improves in the next couple of days. She is up-to-date on flu and pneumonia shots at the dialysis center. YARY FAIRCHILD MD DR: SAM/kailee JOB#: [id number] / [id number] LIN
[2017-08-03 11:00] VITALS: BP 173/65
[2017-08-03] MEDS: IPRATRPIUM/ALBUTEROL 0.5/2.5MG 3 ML NEBU. NEB SCH ×3 (11:51→20:38)
--- NOTE | 2017-08-03 12:04 | PDOC2 ---
CONSULT Date of Consult Date of Consult DATE: 08/03/17 TIME: 12:00 Reason for Consult Reason for Consult: ESRD Referring Physician Referring Physician: DEVORAH Identification/Chief Complaint Chief Complaint SOB Problems: Source Source: Chart review, Patient History of Present Illness Reason for Visit: THIS IS A 71 YR OLD WITH SOB. SUSPICIOUS FOR CHF AND POSSIBLY PNEUMONIA. SHE HAS ESRD AND IS ON OP HD ON MWF. LAST HD WAS ON THURSDAY. SHE HAD A SIMILAR EPISODE COUPLE WEEKS AGO BUT AT THAT TIME SHE DID NOT FINISH HER FULL TX AND RECEIVED ONLY ABOUT 1.5 HRS OF DIALYSIS. LABS ARE C/W ESRD. PAST THU SHE HAD HER FULL HD TX Past Medical History Cardiovascular: CHF, HTN CENTRAL NERVOUS SYSTEM: Other GI: GERD, Gastritis Heme/Onc: Anemia NOS Psych: Anxiety, Depression Musculoskeletal: Osteoarthritis Renal/: Chronic renal failure, Other Endocrine: Hyperparathyroidism Past Surgical History Past Surgical History: Cataract Removal, Total knee replacement, Other Family History Family History: Heart Disease, Hypertension, Stroke Social History ALCOHOL: none Drugs: None Lives: with Family Current Medications Current Medications Current Medications Vancomycin HCl (Vanco Per Pharmacy) 1 each PRN DAILY PRN MC SEE COMMENTS Last administered on 08/02/17 17:49; Start 08/02/17 at 13:00 Piperacillin Sod/ Tazobactam Sod (Zosyn Per Pharmacy) 1 each PRN DAILY PRN MC SEE COMMENTS; Start 08/02/17 at 13:00 Vancomycin HCl 2 gm/Dextrose 500 ml @ 250 mls/hr 1X ONCE IV Last administered on 08/02/17 13:33; Start 08/02/17 at 13:30; Stop 08/02/17 at 15 :29; Status DC Piperacillin Sod/ Tazobactam Sod (Zosyn) 2.25 gm 1X ONCE IVP Last administered on 08/02/17 13:29; Start 08/02/17 at 13:30; Stop 08/02/17 at 13 :31; Status DC Ondansetron HCl (Zofran) 4 mg PRN Q8HRS PRN IV NAUSEA/VOMITING; Start at 13:30; Stop 08/03/17 at 13:29 Acetaminophen (Tylenol) 650 mg PRN Q4HRS PRN PO FEVER; Start 08/02/17 at 13:30 ; Stop 08/03/17 at 13:29 Info (PHARMACY MONITORING -- do not chart) 1 each PRN DAILY PRN MC SEE COMMENTS ; Start 08/02/17 at 14:00 Piperacillin Sod/ Tazobactam Sod (Zosyn) 2.25 gm Q8HRS IVP Last administered on 08/03/17 06:24; Start 08/02/17 at 22:00 Vancomycin HCl 1 each 1X ONCE MC ; Start 08/03/17 at 18:00; Stop 08/03/17 at 18:01 Amlodipine Besylate (Norvasc) 5 mg DAILY PO Last administered on 08/03/17 08: 45; Start 08/02/17 at 20:00 Cinacalcet (Sensipar) 30 mg DAILYWLUN PO ; Start 08/03/17 at 12:00 Clonidine HCl (Catapres) 0.1 mg PRN Q2HR PRN PO HYPERTENSION, SEE COMMENTS; Start 08/02/17 at 19:30 Vitamin B Complex/ Vitamin C (Evelyn-Elsa) 1 tab DAILY PO Last administered on 08:44; Start 08/03/17 at 09:00 Latanoprost (Xalatan) 1 drop QHS OU Last administered on 08/02/17 20:52; Start 08/02/17 at 21:00 Lisinopril (Prinivil) 20 mg BID PO Last administered on 08/03/17 08:44; Start 08/02/17 at 21:00 Pantoprazole Sodium (Protonix) 40 mg DAILYAC PO ; Start 08/03/17 at 07:30; Status UNV Pantoprazole Sodium (Protonix) 40 mg DAILYAC PO Last administered on 08:44; Start 08/03/17 at 07:30 Sevelamer Carbonate (Renvela) 800 mg TIDWMEALS PO Last administered on 08:44; Start 08/03/17 at 08:00 Sucralfate (Carafate) 1 gm TIDAC PO Last administered on 08/03/17 08:44; Start 08/03/17 at 07:30 Zolpidem Tartrate (Ambien) 5 mg PRN QHS PRN PO INSOMNIA Last administered on 22:10; Start 08/02/17 at 19:30 Carvedilol (Coreg) 12.5 mg BIDWMEALS PO Last administered on 08/03/17 08:44; Start 08/02/17 at 21:00 Non-Formulary Medication 1 cap DAILY PO ; Start 08/03/17 at 09:00; Status UNV Fluticasone Propionate (Flonase) 2 spray DAILY NS ; Start 08/03/17 at 09:00; Stop 08/03/17 at 09:00; Status DC Fluticasone Propionate (Flonase) 2 spray DAILY NS Last administered on 08:45; Start 08/02/17 at 22:15 Enoxaparin Sodium (Lovenox 40mg Syringe) 40 mg Q24H SQ ; Start 08/03/17 at 10: 15; Status UNV Heparin Sodium (Porcine) (Heparin Sq) 5,000 unit Q8HRS SQ ; Start 08/03/17 at 14:00 Albuterol/ Ipratropium (Duoneb) 3 ml RTQID NEB Last administered on 08/03/17 11:51; Start 08/03/17 at 12:00 Albuterol Sulfate (Ventolin Neb Soln) 2.5 mg PRN QID PRN NEB SHORTNESS OF BREATH; Start 08/03/17 at 10:30 Active Scripts Active Protonix (Pantoprazole Sodium) 40 Mg Tablet.dr 1 Tab PO DAILY Lisinopril 20 Mg Tablet 1 Tab PO BID 30 Days Amlodipine Besylate 5 Mg Tablet 5 Mg PO DAILY 30 Days Zofran (Ondansetron Hcl) 4 Mg Tablet 1 Tab PO Q6HRS Reported Tylenol (Acetaminophen) 325 Mg Tablet 1-2 Tab PO QID Nexium Capsule (Esomeprazole Magnesium) 20 Mg Capsule.dr 1 Cap PO DAILY Zolpidem Tartrate 5 Mg Tablet 5 Mg PO PRN QHS PRN Latanoprost 2.5 Ml Drops 1 Drop EACHEYE QHS Pantoprazole Sodium 40 Mg Tablet.dr 40 Mg PO DAILY Sensipar (Cinacalcet Hcl) 30 Mg Tablet 30 Mg PO DAILYWLUN Renvela (Sevelamer Carbonate) 800 Mg Tablet 800 Mg PO TIDWMEALS Nephro-Elsa Tablet (Folic Acid/Vitamin B Comp W-C) 0.8 Mg Tablet 1 Tab PO DAILY Nasonex (Mometasone Furoate) 17 Gm Bradley.pump 2 Sprays NS DAILY Clonidine Hcl 0.1 Mg Tablet 0.1 Mg PO PRN Q2HR PRN Carvedilol 25 Mg Tablet 12.5 Mg PO BIDWMEALS Carafate (Sucralfate) 1 Gm Tablet 1 Gm PO TIDAC Allergies Allergies: Coded Allergies: chlorhexidine (Verified Allergy, Intermediate, Rash, 04/22/17) Opioids - Morphine Analogues (Verified Adverse Reaction, Intermediate, Nausea and Vomiting, 04/22/17) Opioids-Meperidine and Related (Verified Adverse Reaction, Intermediate, Nausea and Vomiting, 04/22/17) Opioids-Methadone and Related (Verified Adverse Reaction, Intermediate, Nausea and Vomiting, 04/22/17) codeine (Verified Adverse Reaction, Intermediate, Nausea and Vomiting, 04/22) ROS General: YES: Fatigue, Malaise, Appetite PSYCHOLOGICAL ROS: YES: Anxiety, Depression Eyes: Yes Decreased vision HEENT: YES: Heacaches Respiratory: YES: Cough, Orthopnea, Shortness of breath Cardiovascular: yes Orthopnea, yes Edema Gastrointestinal: Yes Constipation Genitourinary: YES Other (ANURIA) Musculoskeletal: Yes Muscular Weakness Neurological: Yes Weakness Skin: Yes Dry Skin Physical Exam General: Alert, Oriented X3, Cooperative HEENT: Atraumatic, PERRLA Lungs: Other (BASILAR RALES) Heart: Regular rate, No murmurs Abdomen: Normal bowel sounds, Soft Extremities: No clubbing Skin: No breakdown Neuro: Normal speech, Cranial nerves 3-12 NL Psych/Mental Status: Mental status NL, Mood NL MUSCULOSKELETAL: No deformity, No swelling Vitals VITALS Vital Signs Date Time Temp Pulse Resp B/P (MAP) Pulse Ox O2 Delivery O2 Flow Rate FiO2 08/03/17 11:56 100 Nasal Cannula 2.0 08/03/17 08:45 66 186/87 08/03/17 07:00 97.8 18 97.8 Labs Labs Laboratory Tests Test 08/02/17 13:00 08/02/17 15:35 08/02/17 16:35 08/02/17 21:40 White Blood Count 5.2 x10^3/uL (4.0-11.0) Red Blood Count 3.52 x10^6/uL (3.50-5.40) Hemoglobin 11.1 g/dL (12.0-15.5) Hematocrit 34.3 % (36.0-47.0) Mean Corpuscular Volume 97 fL (79-100) Mean Corpuscular Hemoglobin 32 pg (25-35) Mean Corpuscular Hemoglobin Concent 33 g/dL (31-37) Red Cell Distribution Width 14.6 % (11.5-14.5) Platelet Count 172 x10^3/uL (140-400) Neutrophils (%) (Auto) 72 % (31-73) Lymphocytes (%) (Auto) 19 % (24-48) Monocytes (%) (Auto) 5 % (0-9) Eosinophils (%) (Auto) 3 % (0-3) Basophils (%) (Auto) 1 % (0-3) Neutrophils # (Auto) 3.8 x10^3uL (1.8-7.7) Lymphocytes # (Auto) 1.0 x10^3/uL (1.0-4.8) Monocytes # (Auto) 0.3 x10^3/uL (0.0-1.1) Eosinophils # (Auto) 0.1 x10^3/uL (0.0-0.7) Basophils # (Auto) 0.0 x10^3/uL (0.0-0.2) Sodium Level 141 mmol/L (136-145) Potassium Level 5.3 mmol/L (3.5-5.1) Chloride Level 103 mmol/L (98-107) Carbon Dioxide Level 23 mmol/L (21-32) Anion Gap 15 (6-14) Blood Urea Nitrogen 86 mg/dL (7-20) Creatinine 10.6 mg/dL (0.6-1.0) Estimated GFR (Cockcroft-Gault) 4.4 BUN/Creatinine Ratio 8 (6-20) Glucose Level 90 mg/dL (70-99) Lactic Acid Level 0.7 mmol/L (0.4-2.0) 0.7 mmol/L (0.4-2.0) Calcium Level 9.8 mg/dL (8.5-10.1) Total Bilirubin 0.7 mg/dL (0.2-1.0) Aspartate Amino Transf (AST/SGOT) 12 U/L (15-37) Alanine Aminotransferase (ALT/SGPT) 14 U/L (14-59) Alkaline Phosphatase 103 U/L (46-116) Troponin I Quantitative 0.037 ng/mL (0.000-0.055) Total Protein 8.2 g/dL (6.4-8.2) Albumin 3.7 g/dL (3.4-5.0) Albumin/Globulin Ratio 0.8 (1.0-1.7) Glucose (Fingerstick) 95 mg/dL (70-99) 125 mg/dL (70-99) Test 08/03/17 07:28 08/03/17 10:22 08/03/17 11:08 Glucose (Fingerstick) 94 mg/dL (70-99) 113 mg/dL (70-99) 126 mg/dL (70-99) Laboratory Tests Test 08/02/17 13:00 08/02/17 15:35 08/02/17 16:35 08/02/17 21:40 White Blood Count 5.2 x10^3/uL (4.0-11.0) Red Blood Count 3.52 x10^6/uL (3.50-5.40) Hemoglobin 11.1 g/dL (12.0-15.5) Hematocrit 34.3 % (36.0-47.0) Mean Corpuscular Volume 97 fL (79-100) Mean Corpuscular Hemoglobin 32 pg (25-35) Mean Corpuscular Hemoglobin Concent 33 g/dL (31-37) Red Cell Distribution Width 14.6 % (11.5-14.5) Platelet Count 172 x10^3/uL (140-400) Neutrophils (%) (Auto) 72 % (31-73) Lymphocytes (%) (Auto) 19 % (24-48) Monocytes (%) (Auto) 5 % (0-9) Eosinophils (%) (Auto) 3 % (0-3) Basophils (%) (Auto) 1 % (0-3) Neutrophils # (Auto) 3.8 x10^3uL (1.8-7.7) Lymphocytes # (Auto) 1.0 x10^3/uL (1.0-4.8) Monocytes # (Auto) 0.3 x10^3/uL (0.0-1.1) Eosinophils # (Auto) 0.1 x10^3/uL (0.0-0.7) Basophils # (Auto) 0.0 x10^3/uL (0.0-0.2) Sodium Level 141 mmol/L (136-145) Potassium Level 5.3 mmol/L (3.5-5.1) Chloride Level 103 mmol/L (98-107) Carbon Dioxide Level 23 mmol/L (21-32) Anion Gap 15 (6-14) Blood Urea Nitrogen 86 mg/dL (7-20) Creatinine 10.6 mg/dL (0.6-1.0) Estimated GFR (Cockcroft-Gault) 4.4 BUN/Creatinine Ratio 8 (6-20) Glucose Level 90 mg/dL (70-99) Lactic Acid Level 0.7 mmol/L (0.4-2.0) 0.7 mmol/L (0.4-2.0) Calcium Level 9.8 mg/dL (8.5-10.1) Total Bilirubin 0.7 mg/dL (0.2-1.0) Aspartate Amino Transf (AST/SGOT) 12 U/L (15-37) Alanine Aminotransferase (ALT/SGPT) 14 U/L (14-59) Alkaline Phosphatase 103 U/L (46-116) Troponin I Quantitative 0.037 ng/mL (0.000-0.055) Total Protein 8.2 g/dL (6.4-8.2) Albumin 3.7 g/dL (3.4-5.0) Albumin/Globulin Ratio 0.8 (1.0-1.7) Glucose (Fingerstick) 95 mg/dL (70-99) 125 mg/dL (70-99) Test 08/03/17 07:28 08/03/17 10:22 08/03/17 11:08 Glucose (Fingerstick) 94 mg/dL (70-99) 113 mg/dL (70-99) 126 mg/dL (70-99) Assessment/Plan Assessment/Plan IMP CHF ?PNEUMONIA ANEMIA HTN-UP - PROB VOLUME DEPENDENT PLAN ENC FLUID LIMITS HD TODAY UF TO DW WILL SEE IF WE NEED TO ADJUST DW DOWN D/W ATTENDING MARIFER METZ MD Aug 03, 2017 12:04
[2017-08-03] MEDS: CINACALCET HCL 30 MG TABLET PO SCH (12:35)
--- NOTE | 2017-08-03 13:01 | CONS ---
DATE OF CONSULTATION: ATTENDING PHYSICIAN: Dr. Bunch. REASON FOR CONSULTATION: Congestive heart failure, respiratory failure. HISTORY OF PRESENT ILLNESS: The patient is a 71-year-old female who has no history of tobacco use. She is on hemodialysis for end-stage renal disease and also has diastolic dysfunction. She came into the hospital with complaint of shortness of breath for the last few days. She has a cough, which is productive of clear sputum. No fever, no chills, no headaches. No nausea, vomiting or diarrhea. The patient was seen in the Emergency Room and had a chest x-ray done, which was consistent with acute interstitial edema. She is currently requiring 2 liters of oxygen. She is going to be dialyzed later today. She has no history of tobacco use. PAST MEDICAL HISTORY: Significant for diastolic dysfunction, history of end-stage renal disease, history of arthritis. No history of tobacco use. PAST SURGICAL HISTORY: AV fistula in the right arm, cataract surgery, total knee replacement, infected hemodialysis catheter removal. FAMILY HISTORY: Positive for diabetes, hypertension and stroke. SOCIAL HISTORY: No history of tobacco use. REVIEW OF SYSTEMS: Twelve-point system obtained. Pertinent positives discussed in history of present illness, otherwise noncontributory. All systems that were negative were reviewed as well. PHYSICAL EXAMINATION: GENERAL: She is awake, mildly tachypneic. VITAL SIGNS: Latest blood pressure is 173/65, pulse ox 100% on 2 liters, afebrile. HEENT: Sclerae nonicteric. NECK: Supple. LUNGS: With crackles at the bases. CARDIOVASCULAR: Regular rate. ABDOMEN: Soft, obese. EXTREMITIES: With trace pitting edema. DIAGNOSTIC STUDY: Her last echo was from 01/2017 and it showed ejection fraction of 60-65%. There was moderate pulmonary hypertension. Her labs were reviewed. White cell count 5.2, hemoglobin 11.1, platelets are 172. BUN 86 and creatinine of 10.6. IMPRESSION: 1. Acute hypoxic respiratory failure secondary to acute on chronic diastolic heart failure. The patient's previous echo had shown normal ejection fraction. 2. End-stage renal disease, on hemodialysis. She did not miss any dialysis sessions. 3. No significant history of tobacco use. 4. No symptoms suggesting pneumonia. RECOMMENDATIONS: 1. Continue with present oxygen at 2 liters. 2. Keep saturation 92-94%. 3. Hemodialysis with increased ultrafiltration. 4. Follow chest x-ray after at least two dialysis sessions. 5. Antibiotics can be discontinued in next 24-48 hrs if CXR improves with HD. 6. Continue nebulizer treatments. 7. We will follow along with you. KASSANDRA CASTELLANOS MD DR: ERI/kailee JOB#: [id number] / [id number] LIN
--- NOTE | 2017-08-03 13:51 | PDOC2 ---
TRACEE BRENNER NURSE PLASTICS 08/03/17 1351: CARDIAC CONSULT DATE OF CONSULT Date of Consult DATE: 08/03/17 TIME: 13:38 REASON FOR CONSULT Reason for Consult: fluid overload, CHF REFERRING PHYSICIAN Referring Physician: Alivia SOURCE Source: Chart review, Patient HISTORY OF PRESENT ILLNESS HISTORY OF PRESENT ILLNESS This is a pleasant 71 yo female admitted for complains of SOA. Reports that starting Thursday she started having SOA. more coughing and felt wheezy. She has been compliant with her HD and routine medications. Denies any recreational drug use. Verbalized no CP, palpitations or frequent dizziness. She does not check her BP at all at home. Presently she is tachypneic and remains with wheeze. Her BP remains elevated. She has been having nonproductive cough, no peripheral edema but positive for PND and orthopnea. No fever or chills. PAST MEDICAL HISTORY Past Medical History Cardiovascular: HTN, CHF Pulmonary: Moderate pulmonary HTN CENTRAL NERVOUS SYSTEM: Other (no pertinent hx) GI: GERD Heme/Onc: Anemia NOS Hepatobiliary: cholelithiasis Psych: Anxiety, Depression Musculoskeletal: Osteoarthritis Rheumatologic: No pertinent hx Infectious disease: No pertinent hx ENT: No pertinent hx Renal/: ESRD (on HD), Other (anuric), renal mass Endocrine: Diabetes Dermatology: No pertinent hx PAST SURGICAL HISTORY Past Surgical History Cataract Removal, Other (Right knee replacement, RUE fistula, breast biopsy, carpal tunnel sx) FAMILY HISTORY Family History: Coronary Artery Disease SOCIAL HISTORY Smoke: No ALCOHOL: none Drugs: None Lives: with Family CURRENT MEDICATIONS CURRENT MEDICATIONS Current Medications Medications (Trade) Dose Ordered Sig/Any Route PRN Reason Start Time Stop Time Status Last Admin Dose Admin Piperacillin Sod/ Tazobactam Sod (Zosyn) 2.25 gm Q8HRS IVP 08/02/17 22:00 08/03/17 06:24 Amlodipine Besylate (Norvasc) 5 mg DAILY PO 08/02/17 20:00 08/03/17 08:45 Cinacalcet (Sensipar) 30 mg DAILYWLUN PO 08/03/17 12:00 08/03/17 12:35 Vitamin B Complex/ Vitamin C (Evelyn-Elsa) 1 tab DAILY PO 08/03/17 09:00 08/03/17 08:44 Latanoprost (Xalatan) 1 drop QHS OU 08/02/17 21:00 08/02/17 20:52 Lisinopril (Prinivil) 20 mg BID PO 08/02/17 21:00 08/03/17 08:44 Pantoprazole Sodium (Protonix) 40 mg DAILYAC PO 08/03/17 07:30 08/03/17 08:44 Sevelamer Carbonate (Renvela) 800 mg TIDWMEALS PO 08/03/17 08:00 08/03/17 12:35 Sucralfate (Carafate) 1 gm TIDAC PO 08/03/17 07:30 08/03/17 12:35 Zolpidem Tartrate (Ambien) 5 mg PRN QHS PRN PO INSOMNIA 08/02/17 19:30 08/02/17 22:10 Carvedilol (Coreg) 12.5 mg BIDWMEALS PO 08/02/17 21:00 08/03/17 08:44 Fluticasone Propionate (Flonase) 2 spray DAILY NS 08/02/17 22:15 08/03/17 08:45 Albuterol/ Ipratropium (Duoneb) 3 ml RTQID NEB 08/03/17 12:00 08/03/17 11:51 ALLERGIES ALLERGIES: Coded Allergies: chlorhexidine (Verified Allergy, Intermediate, Rash, 04/22/17) Opioids - Morphine Analogues (Verified Adverse Reaction, Intermediate, Nausea and Vomiting, 04/22/17) Opioids-Meperidine and Related (Verified Adverse Reaction, Intermediate, Nausea and Vomiting, 04/22/17) Opioids-Methadone and Related (Verified Adverse Reaction, Intermediate, Nausea and Vomiting, 04/22/17) codeine (Verified Adverse Reaction, Intermediate, Nausea and Vomiting, 04/22) ROS Review of System 14 point ROS evaluated with pertinent positives noted per HPI PHYSICAL EXAM General: Alert, Oriented X3, Cooperative, mild distress HEENT: Atraumatic, Mucous membr. moist/pink Lungs: Other (basilar crackles with diffuse wheeze) Heart: Regular rate (SR), Normal S1, Normal S2, Other (3/6 systolic murmur to LLS border) Abdomen: Soft, No tenderness Extremities: No cyanosis, No edema Skin: No breakdown, No significant lesion Neuro: Normal speech, Sensation intact Psych/Mental Status: Mental status NL, Mood NL MUSCULOSKELETAL: Osteoarthritic changes both hands VITALS VITALS Vital Signs Date Time Temp Pulse Resp B/P (MAP) Pulse Ox O2 Delivery O2 Flow Rate FiO2 08/03/17 11:56 100 Nasal Cannula 2.0 08/03/17 11:00 97.8 74 173/65 (101) 97.8 08/03/17 07:00 18 LABS Lab: Laboratory Tests Test 08/02/17 15:35 08/02/17 16:35 08/02/17 21:40 08/03/17 07:28 Lactic Acid Level 0.7 mmol/L (0.4-2.0) Glucose (Fingerstick) 95 mg/dL (70-99) 125 mg/dL (70-99) 94 mg/dL (70-99) Test 08/03/17 10:22 08/03/17 11:08 Glucose (Fingerstick) 113 mg/dL (70-99) 126 mg/dL (70-99) ECHOCARDIOGRAM ECHOCARDIOGRAM <Conclusion> The left ventricular systolic function is normal and the ejection fraction is within normal range. The Ejection Fraction is 60-65%. There is normal LV segmental wall motion. Doppler and Color Flow revealed mild tricuspid regurgitation. There is moderate pulmonary hypertension. The PA pressure was estimated at 49 mmHg. There is a trace circumferential pericardial effusion. DATE: 02/10/17 1641 STRESS TEST STRESS TEST Conclusion 1. No evidence of stress induced EKG changes. 2. Subtle inferolateral perfusion defect suggestive of attenuation artifact with grossly normal regional wall motion. 3. EF 50%. 4. Low risk study. DATE: 02/06/16 0816 ASSESSMENT/PLAN ASSESSMENT/PLAN 1. Acute on chronic diastolic heart failure: refractory episode likely from uncontrolled HTN and undiagnosed DONA. 2. Hypertensive urgency; BP remains labile. 3. Moderate Pulmonary HTN; PAP 49 4. ESRD 5. Anemia 6. DM2 7. Undiagnosed DONA? Recommendations 1. Fluid off loading per HD due today. Pulmonay following as well 2. Continue optimization of antiHTN meds. Increase norvasc and add imdur. Could consider RHC given persistent refractory episodes, Will discuss with primary visitor services associate, 3. Continue with secondary prevention. 4. Lipids and TSH Problems: ARELY JARAMILLO MD 08/03/172158: CARDIAC CONSULT ALLERGIES ALLERGIES: Coded Allergies: chlorhexidine (Verified Allergy, Intermediate, Rash, 04/22/17) Opioids - Morphine Analogues (Verified Adverse Reaction, Intermediate, Nausea and Vomiting, 04/22/17) Opioids-Meperidine and Related (Verified Adverse Reaction, Intermediate, Nausea and Vomiting, 04/22/17) Opioids-Methadone and Related (Verified Adverse Reaction, Intermediate, Nausea and Vomiting, 04/22/17) codeine (Verified Adverse Reaction, Intermediate, Nausea and Vomiting, 04/22) ASSESSMENT/PLAN ASSESSMENT/PLAN Pt. seen and examined. Agree with above [employer] INST[employer]ER note 71 y.o woman with multiple CV risk factors presenting for recurrent HF with uncontrolled HTN Given valvular disease, pulm HTN, and recurrent dyspnea, plan for right and left heart cath tomorrow. Discussed with patient and she is willing to proceed.. May consider ALMITA depending on RHC results. THanks. Problems: TRACEE BRENNER APRN Aug 03, 2017 13:51 ARELY JARAMILLO MD Aug 03, 2017 21:59
[2017-08-03] MEDS: HEPARIN PF for SUB-Q USE 5,000 UNIT/0.5 ML VIAL. SQ SCH (14:00)
[2017-08-03] MEDS ORDERED: amLODIPine BESYLATE 5 MG TABLET PO ONE (14:30)
[2017-08-03] MEDS: VANCOMYCIN PER PHARMACY MC PRN (14:37)
[2017-08-03] MEDS ORDERED: IV NORMAL SALINE 1000ML BAG 1,000 ML IV PRN ×2 (14:53)
[2017-08-03] MEDS ORDERED: DIALYSIS PATIENT. MC PRN ×2 (15:00)
[2017-08-03 18:00] VITALS: BP 207/80
[2017-08-03] MEDS ORDERED: VANCOMYCIN RANDOM LEVEL. MC ONE (18:00)
[2017-08-03] MEDS: ASPIRIN ENTERIC COATED 81 MG TABLET.DR. PO SCH (18:28)
[2017-08-03] MEDS: ISOSORBIDE MONONITRATE ER 30 MG TAB.ER.24H PO SCH (18:28)
[2017-08-03] MEDS: ACETAMINOPHEN 325 MG TABLET. PO PRN (20:56)
[2017-08-03] MEDS: LATANOPROST 0.005% OPHTH SOLUTION 2.5ML BOTTLE. OU SCH (20:57)
[2017-08-03 23:00] VITALS: BP 160/86
[2017-08-04] MEDS: HEPARIN PF for SUB-Q USE 5,000 UNIT/0.5 ML VIAL. SQ SCH ×4 (00:01→21:24)
[2017-08-04 03:50] VITALS: BP 134/86
[2017-08-04] MEDS ORDERED: VANCOMYCIN RANDOM LEVEL. MC ONE (06:00)
[2017-08-04] MEDS: PIPERACILLIN/TAZO IV Push 2.25 GM VIAL. IVP SCH (06:00)
[2017-08-04 06:49] LABS: BASO # 0.1 x10^3/uL (0.0-0.2); BASO % 1 % (0-3); EOS % 4 % (0-3); HEMATOCRIT 34.7 % (36.0-47.0); HEMOGLOBIN 11.4 g/dL (12.0-15.5); LYMPH % 16 % (24-48); MEAN CORPUSCULAR HEMOGLOBIN 32 pg (25-35); MEAN CORPUSCULAR HGB CONC 33 g/dL (31-37); MEAN CORPUSCULAR VOLUME 96 fL (79-100); MONO % 5 % (0-9); NEUT % 74 % (31-73); PLATELET COUNT 168 x10^3/uL (140-400); RED CELL DISTRIBUTION WIDTH 14.8 % (11.5-14.5); WHITE BLOOD COUNT 6.1 x10^3/uL (4.0-11.0)
[2017-08-04 07:00] VITALS: BP 171/78
[2017-08-04] MEDS: IPRATRPIUM/ALBUTEROL 0.5/2.5MG 3 ML NEBU. NEB SCH ×4 (07:07→18:34)
[2017-08-04 07:17] LABS: ALBUMIN 3.5 g/dL (3.4-5.0); ALBUMIN/GLOBULIN RATIO 0.8 (1.0-1.7); CALCIUM 9.3 mg/dL (8.5-10.1); CREATININE 8.1 mg/dL (0.6-1.0); POTASSIUM 4.8 mmol/L (3.5-5.1); TOTAL BILIRUBIN 0.7 mg/dL (0.2-1.0)
[2017-08-04 07:20] LABS: CHOLESTEROL/HDL RATIO 3.2
[2017-08-04] MEDS: SUCRALFATE 1 GM TABLET. PO SCH ×3 (07:30→17:05)
[2017-08-04] MEDS: PANTOPRAZOLE 40 MG TABLET.DR. PO SCH (07:30)
[2017-08-04] MEDS: ASPIRIN ENTERIC COATED 81 MG TABLET.DR. PO SCH (08:00)
[2017-08-04] MEDS: SEVELAMER CARBONATE 800 MG TABLET. PO SCH ×3 (08:00→17:06)
[2017-08-04] MEDS: CARVEDILOL 12.5 MG TABLET. PO SCH ×2 (08:33→17:06)
[2017-08-04] MEDS: ACETAMINOPHEN 325 MG TABLET. PO PRN ×2 (08:33→21:24)
[2017-08-04] MEDS: LISINOPRIL 20 MG TABLET PO SCH ×2 (08:33→21:00)
[2017-08-04] MEDS: amLODIPine BESYLATE 10 MG TABLET PO SCH (08:33)
[2017-08-04] MEDS: FLUTICASONE 50MCG/NASAL SPRAY 16GM BOTTLE. NS SCH (08:34)
[2017-08-04] MEDS: ISOSORBIDE MONONITRATE ER 30 MG TAB.ER.24H PO SCH (08:35)
[2017-08-04] MEDS: FOLIC/VIT B COMP W-C (RENAL) TABLET. PO SCH (08:35)
[2017-08-04] MEDS ORDERED: LIDOCAINE 2% 20 ML VIAL. ONE (08:55)
[2017-08-04] MEDS ORDERED: IODIXANOL 320 MG/ML 100 ML VIAL. ONE (08:55)
--- NOTE | 2017-08-04 09:37 | PDOC ---
PROGRESS NOTES Subjective Subjective cardiac cath today Objective Objective Vital Signs Date Time Temp Pulse Resp B/P (MAP) Pulse Ox O2 Delivery O2 Flow Rate FiO2 08/04/17 08:35 67 171/78 08/04/17 07:08 98 Nasal Cannula 2.0 08/04/17 07:00 97.7 18 97.7 Intake and Output 08/04/17 06:59 Intake Total 2100 ml Output Total 0 ml Balance 2100 ml Intake Oral 2100 ml Output Urine Total 0 ml # Voids 1 Physical Exam Abdomen: Soft, No tenderness Heart: Regular rate (SR), Normal S1, Normal S2, Other (3/6 systolic murmur to LLS border) Extremities: No cyanosis, No edema General: Alert, Oriented X3, Cooperative, mild distress HEENT: Atraumatic, Mucous membr. moist/pink Lungs: Other (basilar crackles with diffuse wheeze) MUSCULOSKELETAL: Osteoarthritic changes both hands Neuro: Normal speech, Sensation intact Psych/Mental Status: Mental status NL, Mood NL Skin: No breakdown, No significant lesion Assessment Assessment FINAL IMPRESSION: 1. Shortness of breath secondary to multifactorial.flash pul edema, 2. Diastolic heart failure. Echocardiogram done 6 months ago showed good left ventricular function, 50%. 3. End-stage renal disease on hemodialysis Thursday, Thursday, Thursday. I am not sure if she is sticking to fluid restrictions. 4. Chest x-ray suggestive of interstitial lung infiltrates. We will have CT of the chest, high resolution and pulmonary consult. 5. Hypertension. 6. Arthritis. 7. Hyperlipidemia. PLAN: cardiac cath today. spoke with Pulmonary repeat cxr to f/u on chf. cannot do ct chest yesterday due to SOB. At this time was admit to the hospital. I spoke to dialysis unit as well as renal. We will get dialysis today. We will get echocardiogram to rule out lacunar infarction. Cardiology evaluation again, CT chest as well as pulmonary consult and DVT prophylaxis and see how the patient's condition improves. At this point, does not look like any pneumonia. No fever. White count was normal. Sputum is clear. We will watch and see how she improves in the next couple of days. She is up-to-date on flu and pneumonia shots at the dialysis Problems: Comment Review of Relevant I have reviewed the following items dorina (where applicable) has been applied. Labs Laboratory Tests Test 08/03/17 10:22 11/13/17 11:08 08/03/17 18:24 08/03/17 21:33 Glucose (Fingerstick) 113 mg/dL (70-99) 126 mg/dL (70-99) 81 mg/dL (70-99) 130 mg/dL (70-99) Test 08/04/17 06:30 08/04/17 07:21 White Blood Count 6.1 x10^3/uL (4.0-11.0) Red Blood Count 3.60 x10^6/uL (3.50-5.40) Hemoglobin 11.4 g/dL (12.0-15.5) Hematocrit 34.7 % (36.0-47.0) Mean Corpuscular Volume 96 fL (79-100) Mean Corpuscular Hemoglobin 32 pg (25-35) Mean Corpuscular Hemoglobin Concent 33 g/dL (31-37) Red Cell Distribution Width 14.8 % (11.5-14.5) Platelet Count 168 x10^3/uL (140-400) Neutrophils (%) (Auto) 74 % (31-73) Lymphocytes (%) (Auto) 16 % (24-48) Monocytes (%) (Auto) 5 % (0-9) Eosinophils (%) (Auto) 4 % (0-3) Basophils (%) (Auto) 1 % (0-3) Neutrophils # (Auto) 4.5 x10^3uL (1.8-7.7) Lymphocytes # (Auto) 1.0 x10^3/uL (1.0-4.8) Monocytes # (Auto) 0.3 x10^3/uL (0.0-1.1) Eosinophils # (Auto) 0.3 x10^3/uL (0.0-0.7) Basophils # (Auto) 0.1 x10^3/uL (0.0-0.2) Sodium Level 139 mmol/L (136-145) Potassium Level 4.8 mmol/L (3.5-5.1) Chloride Level 100 mmol/L (98-107) Carbon Dioxide Level 25 mmol/L (21-32) Anion Gap 14 (6-14) Blood Urea Nitrogen 56 mg/dL (7-20) Creatinine 8.1 mg/dL (0.6-1.0) Estimated GFR (Cockcroft-Gault) 6.0 BUN/Creatinine Ratio 7 (6-20) Glucose Level 87 mg/dL (70-99) Calcium Level 9.3 mg/dL (8.5-10.1) Total Bilirubin 0.7 mg/dL (0.2-1.0) Aspartate Amino Transf (AST/SGOT) 15 U/L (15-37) Alanine Aminotransferase (ALT/SGPT) 11 U/L (14-59) Alkaline Phosphatase 93 U/L (46-116) Total Protein 8.0 g/dL (6.4-8.2) Albumin 3.5 g/dL (3.4-5.0) Albumin/Globulin Ratio 0.8 (1.0-1.7) Triglycerides Level 74 mg/dL (0-150) Cholesterol Level 144 mg/dL (0-200) LDL Cholesterol, Calculated 84 mg/dL (0-100) VLDL Cholesterol, Calculated 15 mg/dL (0-40) Non-HDL Cholesterol Calculated 99 mg/dL (0-129) HDL Cholesterol 45 mg/dL (40-60) Cholesterol/HDL Ratio 3.2 Thyroid Stimulating Hormone (TSH) 1.644 uIU/mL (0.358-3.74) Random Vancomycin Level 20.5 mcg/mL Glucose (Fingerstick) 92 mg/dL (70-99) Microbiology 08/02/17 Blood Culture - Preliminary, Resulted NO GROWTH AFTER 1 DAY Medications Current Medications Acetaminophen (Tylenol) 650 mg PRN Q6HRS PRN PO MILD PAIN Last administered on 08/04/17 08:33; Start 08/03/17 at 20:00 Albuterol Sulfate (Ventolin Neb Soln) 2.5 mg PRN QID PRN NEB SHORTNESS OF BREATH; Start 08/03/17 at 10:30 Albuterol/ Ipratropium (Duoneb) 3 ml RTQID NEB Last administered on 08/04/17 07:07; Start 08/03/17 at 12:00 Amlodipine Besylate (Norvasc) 5 mg 1X ONCE PO Last administered on 08/03/17 18:29; Start 08/03/17 at 14:30; Stop 08/03/17 at 14:31; Status DC Amlodipine Besylate (Norvasc) 10 mg DAILY PO Last administered on 08/04/17 08 :33; Start 08/04/17 at 09:00 Aspirin (Ecotrin) 81 mg DAILYWBKFT PO Last administered on 08/03/17 18:28; Start 08/03/17 at 14:30 Cinacalcet (Sensipar) 30 mg DAILYWLUN PO Last administered on 08/03/17 12:35 ; Start 08/03/17 at 12:00 Enoxaparin Sodium (Lovenox 40mg Syringe) 40 mg Q24H SQ ; Start 08/03/17 at 10: 15; Status UNV Heparin Sodium (Porcine) (Heparin Sq) 5,000 unit Q8HRS SQ Last administered on 08/04/17 00:01; Start 08/03/17 at 14:00 Heparin Sodium/ Sodium Chloride 500 ml @ As Directed STK-MED ONCE .ROUTE ; Start 08/04/17 at 08:55; Stop 08/04/17 at 08:56; Status DC Info (PHARMACY MONITORING -- do not chart) 1 each PRN DAILY PRN MC SEE COMMENTS ; Start 08/03/17 at 15:00; Status UNV Info (PHARMACY MONITORING -- do not chart) 1 each PRN DAILY PRN MC SEE COMMENTS ; Start 08/03/17 at 15:00; Status UNV Iodixanol (Visipaque 320) 100 ml STK-MED ONCE .ROUTE ; Start 08/04/17 at 08:55 ; Stop 08/04/17 at 08:56; Status DC Isosorbide Mononitrate (Imdur) 30 mg DAILY PO Last administered on 08/03/17 18:28; Start 08/03/17 at 14:30 Lidocaine HCl 20 ml STK-MED ONCE .ROUTE ; Start 08/04/17 at 08:55; Stop at 08:56; Status DC Sodium Chloride 1,000 ml @ 400 mls/hr Q2H30M PRN IV PATENCY; Start 08/03/17 at 14:53; Stop 08/04/17 at 02:52; Status DC Sodium Chloride 1,000 ml @ 1,000 mls/hr Q1H PRN IV hypotension; Start at 14:53; Stop 08/03/17 at 20:52; Status DC Vancomycin HCl 1 each 1X ONCE MC ; Start 08/03/17 at 18:00; Stop 08/03/17 at 18:00; Status DC Vancomycin HCl 1 each 1X ONCE MC ; Start 08/04/17 at 06:00; Stop 08/04/17 at 06:01; Status DC Vitals/I & O Vital Sign - Last 24 Hours 08/03/17 08/03/17 08/03/17 08/03/17 11:00 11:56 16:38 18:00 Temp 97.8 97.8 Pulse 74 64 Resp 18 B/P (MAP) 173/65 (101) 207/80 (122) Pulse Ox 94 100 96 O2 Delivery Room Air Nasal Cannula Nasal Cannula Nasal Cannula O2 Flow Rate 2.0 2.0 2.0 08/03/17 08/03/17 08/03/17 08/03/17 18:28 18:29 18:29 20:10 Pulse 64 64 64 B/P (MAP) 207/80 207/80 207/80 O2 Delivery Nasal Cannula O2 Flow Rate 2.0 08/03/17 08/03/17 08/03/17 08/04/17 20:38 20:57 23:00 03:50 Temp 98.1 97.7 98.1 97.7 Pulse 64 74 75 Resp 20 18 B/P (MAP) 207/80 160/86 (110) 134/86 (102) Pulse Ox 100 97 95 O2 Delivery Nasal Cannula Room Air Nasal Cannula O2 Flow Rate 2.0 08/04/17 08/04/17 08/04/17 08/04/17 07:00 07:08 08:33 08:33 Temp 97.7 97.7 Pulse 67 67 67 Resp 18 B/P (MAP) 171/78 (109) 171/78 171/78 Pulse Ox 97 98 O2 Delivery Nasal Cannula Nasal Cannula O2 Flow Rate 2.0 2.0 08/04/17 08/04/17 08:33 08:35 Pulse 67 67 B/P (MAP) 171/78 171/78 Intake and Output 08/03/17 08/03/17 08/04/17 14:59 22:59 06:59 Intake Total 600 ml 1100 ml 400 ml Output Total 0 ml Balance 600 ml 1100 ml 400 ml YARY FAIRCHILD MD Aug 04, 2017 09:36
[2017-08-04] MEDS ORDERED: diphenhydrAMINE 50 MG/ML VIAL ONE (09:56)
[2017-08-04] MEDS ORDERED: ONDANSETRON PF 4 MG/2 ML VIAL. ONE (10:00)
[2017-08-04] MEDS ORDERED: fentaNYL PF VIAL 100 MCG/2 ML VIAL ONE (10:00)
[2017-08-04] MEDS ORDERED: NITROGLYCERIN SUBLINGUAL 0.4 MG BOTTLE OF 25. SL ONE (10:06)
--- NOTE | 2017-08-04 10:06 | RAD ---
CT chest without contrast 08/04/2017 Clinical indication: Interstitial lung disease, shortness of breath. Impression: Chest radiograph 08/02/2017, CTA chest 02/24/2017. Technique: Multiple CT noncontrast images of the chest were obtained according to standard protocol. RS Compliance Statement: One or more of the following individualized dose reduction techniques were utilized for this examination: 1. Automated exposure control 2. Adjustment of the mA and/or kV according to patient size 3. Use of iterative reconstruction technique Findings: Patient was unable to perform prone or expiratory imaging. Only inspiratory noncontrast CT chest images were obtained. Examination is limited due to motion. Mild generalized cardiomegaly without pericardial effusion. There are dense mitral annular calcifications. There are coronary artery calcifications noted. The thoracic aorta is normal in caliber with mild scattered calcified atheromatous disease. There is a right IJ central venous catheter terminating in the low SVC. No axillary, obvious mediastinal or hilar lymphadenopathy, though evaluation is limited in the absence of intravenous contrast. The central airways are patent. There are few scattered bibasilar calcified granulomas. There are small bilateral pleural effusions and adjacent atelectasis. In the aerated portions of the lungs, no honeycombing or bronchiectasis. Air trapping is difficult to assess with lack of expiratory imaging. No pneumothorax. Advanced cervical spondylosis and mild multilevel thoracic spondylosis. No destructive osseous lesions. Limited images of the upper abdomen: Unchanged size and appearance of indeterminate right renal lesion measuring 3.9 cm. There are multiple additional bilateral renal hypodensities which are incompletely characterized. Impression: 1. Limited exam due to respiratory motion and patient ability to perform prone imaging. 2. Within these limitations, small bilateral pleural effusions and adjacent atelectasis. 3. No evidence of bronchiectasis or honeycombing in the aerated portions of the lungs. 4. Right renal indeterminate lesion measuring 3.9 cm not clearly characterized due to lack of intravenous contrast. In addition there are multiple additional bilateral renal hypodensities which are also indeterminate. Renal malignancy is not excluded and follow-up CT abdomen renal protocol is recommended.
[2017-08-04] MEDS ORDERED: NITROGLYCERIN SUBLINGUAL 0.4 MG BOTTLE OF 25. SL STA (10:24)
[2017-08-04] MEDS ORDERED: hydrALAZINE 20 MG/ML VIAL. ONE (10:27)
[2017-08-04] MEDS ORDERED: fentaNYL PF VIAL 100 MCG/2 ML VIAL IV ONE (10:30)
[2017-08-04] MEDS ORDERED: ONDANSETRON PF 4 MG/2 ML VIAL. IV ONE (10:30)
[2017-08-04] MEDS ORDERED: hydrALAZINE 20 MG/ML VIAL. IVP ONE (10:45)
[2017-08-04] MEDS ORDERED: NITROGLYCERIN SUBLINGUAL 0.4 MG BOTTLE OF 25. SL PRN (10:45)
[2017-08-04] MEDS ORDERED: 0.9 % SODIUM CHLORIDE 10 ML DISP.SYRIN. IV PRN (10:45)
[2017-08-04 10:51] VITALS: BP 188/91
[2017-08-04] MEDS ORDERED: diphenhydrAMINE 50 MG/ML VIAL IVP ONE (11:00)
[2017-08-04] MEDS: CINACALCET HCL 30 MG TABLET PO SCH (11:28)
--- NOTE | 2017-08-04 11:48 | PDOC ---
Renal-Progress Notes Subjective Notes Notes BETTER History of Present Illness Hx of present illness STABLE Vitals Vitals Vital Signs Date Time Temp Pulse Resp B/P (MAP) Pulse Ox O2 Delivery O2 Flow Rate FiO2 08/04/17 11:26 20 98 Nasal Cannula 2.0 08/04/17 10:56 64 188/99 08/04/17 07:00 97.7 97.7 Weight Weight [ ] I.O. Intake and Output Intake and Output 08/04/17 06:59 Intake Total 2100 ml Output Total 0 ml Balance 2100 ml Intake Oral 2100 ml Output Urine Total 0 ml # Voids 1 Labs Labs Laboratory Tests Test 08/03/17 18:24 08/03/17 21:33 08/04/17 06:30 08/04/17 07:21 Glucose (Fingerstick) 81 mg/dL (70-99) 130 mg/dL (70-99) 92 mg/dL (70-99) White Blood Count 6.1 x10^3/uL (4.0-11.0) Red Blood Count 3.60 x10^6/uL (3.50-5.40) Hemoglobin 11.4 g/dL (12.0-15.5) Hematocrit 34.7 % (36.0-47.0) Mean Corpuscular Volume 96 fL (79-100) Mean Corpuscular Hemoglobin 32 pg (25-35) Mean Corpuscular Hemoglobin Concent 33 g/dL (31-37) Red Cell Distribution Width 14.8 % (11.5-14.5) Platelet Count 168 x10^3/uL (140-400) Neutrophils (%) (Auto) 74 % (31-73) Lymphocytes (%) (Auto) 16 % (24-48) Monocytes (%) (Auto) 5 % (0-9) Eosinophils (%) (Auto) 4 % (0-3) Basophils (%) (Auto) 1 % (0-3) Neutrophils # (Auto) 4.5 x10^3uL (1.8-7.7) Lymphocytes # (Auto) 1.0 x10^3/uL (1.0-4.8) Monocytes # (Auto) 0.3 x10^3/uL (0.0-1.1) Eosinophils # (Auto) 0.3 x10^3/uL (0.0-0.7) Basophils # (Auto) 0.1 x10^3/uL (0.0-0.2) Sodium Level 139 mmol/L (136-145) Potassium Level 4.8 mmol/L (3.5-5.1) Chloride Level 100 mmol/L (98-107) Carbon Dioxide Level 25 mmol/L (21-32) Anion Gap 14 (6-14) Blood Urea Nitrogen 56 mg/dL (7-20) Creatinine 8.1 mg/dL (0.6-1.0) Estimated GFR (Cockcroft-Gault) 6.0 BUN/Creatinine Ratio 7 (6-20) Glucose Level 87 mg/dL (70-99) Calcium Level 9.3 mg/dL (8.5-10.1) Total Bilirubin 0.7 mg/dL (0.2-1.0) Aspartate Amino Transf (AST/SGOT) 15 U/L (15-37) Alanine Aminotransferase (ALT/SGPT) 11 U/L (14-59) Alkaline Phosphatase 93 U/L (46-116) Total Protein 8.0 g/dL (6.4-8.2) Albumin 3.5 g/dL (3.4-5.0) Albumin/Globulin Ratio 0.8 (1.0-1.7) Triglycerides Level 74 mg/dL (0-150) Cholesterol Level 144 mg/dL (0-200) LDL Cholesterol, Calculated 84 mg/dL (0-100) VLDL Cholesterol, Calculated 15 mg/dL (0-40) Non-HDL Cholesterol Calculated 99 mg/dL (0-129) HDL Cholesterol 45 mg/dL (40-60) Cholesterol/HDL Ratio 3.2 Thyroid Stimulating Hormone (TSH) 1.644 uIU/mL (0.358-3.74) Random Vancomycin Level 20.5 mcg/mL Micro Micro Microbiology 08/02/17 Blood Culture - Preliminary, Resulted NO GROWTH AFTER 1 DAY Review of Systems Constitutional: yes: alert, oriented Ears/Nose/Throat: Yes: no symptom reported Eyes: Yes: no symptom reported Pulmonary: Yes dyspnea Cardiovascular: Yes no symptom reported Gastrointestional: Yes: constipation Genitourinary: Yes: no symptom reported Musculoskeletal: Yes: muscle stiffness Skin: Yes no symptom reported Psychiatric/Neurological: Yes: no symptom reported Endocrine: Yes: no symptom reported Physical Exam General Appearance: no apparent distress Skin: warm Respiratory: decreased breath sounds Heart: S1S2 Abdomen: soft, bowel sounds present Genitourinary: bladder flat, no mass Extremities: pulses present, atrophy Neurology: alert, oriented Musculoskeletal: Osteoarthritis Assessment Assessment IMP CHF ANEMIA HTN ESRD PLAN HD TOMORROW HEART CATH TODAY D/W ATTENDING MARIFER METZ MD Aug 04, 2017 11:48
--- NOTE | 2017-08-04 13:09 | PDOC ---
PULMONARY PROGRESS NOTES Subjective feels better Vitals Vital Signs Date Time Temp Pulse Resp B/P (MAP) Pulse Ox O2 Delivery O2 Flow Rate FiO2 08/04/17 11:26 20 98 Nasal Cannula 2.0 08/04/17 10:56 64 188/99 08/04/17 07:00 97.7 97.7 General: Alert, Oriented X4, No acute distress Lungs: Other (decrease bs bases) Cardiovascular: S1, S2 Abdomen: Soft, Non-tender, Other Extremities: Other (1+edema) Labs Laboratory Tests Test 08/02/17 15:35 08/02/17 16:35 08/02/17 21:40 08/03/17 07:28 Lactic Acid Level 0.7 mmol/L (0.4-2.0) Glucose (Fingerstick) 95 mg/dL (70-99) 125 mg/dL (70-99) 94 mg/dL (70-99) Test 08/03/17 10:22 08/03/17 11:08 08/03/17 18:24 08/03/17 21:33 Glucose (Fingerstick) 113 mg/dL (70-99) 126 mg/dL (70-99) 81 mg/dL (70-99) 130 mg/dL (70-99) Test 08/04/17 06:30 08/04/17 07:21 08/04/17 11:11 White Blood Count 6.1 x10^3/uL (4.0-11.0) Red Blood Count 3.60 x10^6/uL (3.50-5.40) Hemoglobin 11.4 g/dL (12.0-15.5) Hematocrit 34.7 % (36.0-47.0) Mean Corpuscular Volume 96 fL (79-100) Mean Corpuscular Hemoglobin 32 pg (25-35) Mean Corpuscular Hemoglobin Concent 33 g/dL (31-37) Red Cell Distribution Width 14.8 % (11.5-14.5) Platelet Count 168 x10^3/uL (140-400) Neutrophils (%) (Auto) 74 % (31-73) Lymphocytes (%) (Auto) 16 % (24-48) Monocytes (%) (Auto) 5 % (0-9) Eosinophils (%) (Auto) 4 % (0-3) Basophils (%) (Auto) 1 % (0-3) Neutrophils # (Auto) 4.5 x10^3uL (1.8-7.7) Lymphocytes # (Auto) 1.0 x10^3/uL (1.0-4.8) Monocytes # (Auto) 0.3 x10^3/uL (0.0-1.1) Eosinophils # (Auto) 0.3 x10^3/uL (0.0-0.7) Basophils # (Auto) 0.1 x10^3/uL (0.0-0.2) Sodium Level 139 mmol/L (136-145) Potassium Level 4.8 mmol/L (3.5-5.1) Chloride Level 100 mmol/L (98-107) Carbon Dioxide Level 25 mmol/L (21-32) Anion Gap 14 (6-14) Blood Urea Nitrogen 56 mg/dL (7-20) Creatinine 8.1 mg/dL (0.6-1.0) Estimated GFR (Cockcroft-Gault) 6.0 BUN/Creatinine Ratio 7 (6-20) Glucose Level 87 mg/dL (70-99) Hemoglobin A1c 4.5 % (4.8-5.6) Calcium Level 9.3 mg/dL (8.5-10.1) Total Bilirubin 0.7 mg/dL (0.2-1.0) Aspartate Amino Transf (AST/SGOT) 15 U/L (15-37) Alanine Aminotransferase (ALT/SGPT) 11 U/L (14-59) Alkaline Phosphatase 93 U/L (46-116) Total Protein 8.0 g/dL (6.4-8.2) Albumin 3.5 g/dL (3.4-5.0) Albumin/Globulin Ratio 0.8 (1.0-1.7) Triglycerides Level 74 mg/dL (0-150) Cholesterol Level 144 mg/dL (0-200) LDL Cholesterol, Calculated 84 mg/dL (0-100) VLDL Cholesterol, Calculated 15 mg/dL (0-40) Non-HDL Cholesterol Calculated 99 mg/dL (0-129) HDL Cholesterol 45 mg/dL (40-60) Cholesterol/HDL Ratio 3.2 Thyroid Stimulating Hormone (TSH) 1.644 uIU/mL (0.358-3.74) Random Vancomycin Level 20.5 mcg/mL Glucose (Fingerstick) 92 mg/dL (70-99) 87 mg/dL (70-99) Laboratory Tests Test 08/03/17 18:24 08/03/17 21:33 08/04/17 06:30 08/04/17 07:21 Glucose (Fingerstick) 81 mg/dL (70-99) 130 mg/dL (70-99) 92 mg/dL (70-99) White Blood Count 6.1 x10^3/uL (4.0-11.0) Red Blood Count 3.60 x10^6/uL (3.50-5.40) Hemoglobin 11.4 g/dL (12.0-15.5) Hematocrit 34.7 % (36.0-47.0) Mean Corpuscular Volume 96 fL (79-100) Mean Corpuscular Hemoglobin 32 pg (25-35) Mean Corpuscular Hemoglobin Concent 33 g/dL (31-37) Red Cell Distribution Width 14.8 % (11.5-14.5) Platelet Count 168 x10^3/uL (140-400) Neutrophils (%) (Auto) 74 % (31-73) Lymphocytes (%) (Auto) 16 % (24-48) Monocytes (%) (Auto) 5 % (0-9) Eosinophils (%) (Auto) 4 % (0-3) Basophils (%) (Auto) 1 % (0-3) Neutrophils # (Auto) 4.5 x10^3uL (1.8-7.7) Lymphocytes # (Auto) 1.0 x10^3/uL (1.0-4.8) Monocytes # (Auto) 0.3 x10^3/uL (0.0-1.1) Eosinophils # (Auto) 0.3 x10^3/uL (0.0-0.7) Basophils # (Auto) 0.1 x10^3/uL (0.0-0.2) Sodium Level 139 mmol/L (136-145) Potassium Level 4.8 mmol/L (3.5-5.1) Chloride Level 100 mmol/L (98-107) Carbon Dioxide Level 25 mmol/L (21-32) Anion Gap 14 (6-14) Blood Urea Nitrogen 56 mg/dL (7-20) Creatinine 8.1 mg/dL (0.6-1.0) Estimated GFR (Cockcroft-Gault) 6.0 BUN/Creatinine Ratio 7 (6-20) Glucose Level 87 mg/dL (70-99) Hemoglobin A1c 4.5 % (4.8-5.6) Calcium Level 9.3 mg/dL (8.5-10.1) Total Bilirubin 0.7 mg/dL (0.2-1.0) Aspartate Amino Transf (AST/SGOT) 15 U/L (15-37) Alanine Aminotransferase (ALT/SGPT) 11 U/L (14-59) Alkaline Phosphatase 93 U/L (46-116) Total Protein 8.0 g/dL (6.4-8.2) Albumin 3.5 g/dL (3.4-5.0) Albumin/Globulin Ratio 0.8 (1.0-1.7) Triglycerides Level 74 mg/dL (0-150) Cholesterol Level 144 mg/dL (0-200) LDL Cholesterol, Calculated 84 mg/dL (0-100) VLDL Cholesterol, Calculated 15 mg/dL (0-40) Non-HDL Cholesterol Calculated 99 mg/dL (0-129) HDL Cholesterol 45 mg/dL (40-60) Cholesterol/HDL Ratio 3.2 Thyroid Stimulating Hormone (TSH) 1.644 uIU/mL (0.358-3.74) Random Vancomycin Level 20.5 mcg/mL Test 08/04/17 11:11 Glucose (Fingerstick) 87 mg/dL (70-99) Medications Active Scripts Medications Dose Route/Sig Max Daily Dose Days Date Category Tylenol (Acetaminophen) 325 Mg Tablet 1-2 Tab PO QID 08/02/17 Reported Protonix (Pantoprazole Sodium) 40 Mg Tablet.dr 1 Tab PO DAILY 07/26/17 Rx Lisinopril 20 Mg Tablet 1 Tab PO BID 30 04/24/17 Rx Amlodipine Besylate 5 Mg Tablet 5 Mg PO DAILY 30 04/24/17 Rx Nexium Capsule (Esomeprazole Magnesium) 20 Mg Capsule.dr 1 Cap PO DAILY 02/10/17 Reported Zolpidem Tartrate 5 Mg Tablet 5 Mg PO PRN QHS PRN 02/10/17 Reported Zofran (Ondansetron Hcl) 4 Mg Tablet 1 Tab PO Q6HRS 06/06/16 Rx Latanoprost 2.5 Ml Drops 1 Drop EACHEYE QHS 06/03/16 Reported Pantoprazole Sodium 40 Mg Tablet.dr 40 Mg PO DAILY 05/09/16 Reported Sensipar (Cinacalcet Hcl) 30 Mg Tablet 30 Mg PO DAILYWLUN 02/25/16 Reported Renvela (Sevelamer Carbonate) 800 Mg Tablet 800 Mg PO TIDWMEALS 02/25/16 Reported Nephro-Elsa Tablet (Folic Acid/Vitamin B Comp W-C) 0.8 Mg Tablet 1 Tab PO DAILY 02/25/16 Reported Nasonex (Mometasone Furoate) 17 Gm [place]ilsons.pump 2 Sprays NS DAILY 02/25/16 Reported Clonidine Hcl 0.1 Mg Tablet 0.1 Mg PO PRN Q2HR PRN 02/25/16 Reported Carvedilol 25 Mg Tablet 12.5 Mg PO BIDWMEALS 02/25/16 Reported Carafate (Sucralfate) 1 Gm Tablet 1 Gm PO TIDAC 02/25/16 Reported Impression . 1. Acute hypoxic respiratory failure secondary to acute on chronic diastolic heart failure. The patient's previous echo had shown normal ejection fraction. 2. End-stage renal disease, on hemodialysis. She did not miss any dialysis sessions. 3. No significant history of tobacco use. 4. No symptoms suggesting pneumonia. 5. s/p right/left heart cath 6. abnormal ct chest with small effusions c/w CHF/ abnormal right kidney Plan . 1. Continue with present oxygen at 2 liters. 2. Keep saturation 92-94%. 3. Hemodialysis with increased ultrafiltration. 4. Follow chest x-ray after at least two dialysis sessions. 5. Antibiotics can be discontinued in next 24 hrs if CXR improves with HD./ CXR in am 6. Continue nebulizer treatments. 7. follow results of cath 8. w/u for abnormal right kidney per PCP KASSANDRA CASTELLANOS MD Aug 04, 2017 13:09
--- NOTE | 2017-08-04 13:38 | CARD ---
APPROVED REPORT Procedure(s) performed: 0 MODERATE SEDATION HISTORY The patient is a 71 year-old female with a history of : renal failure with dialysis, hypertension, dy slipidemia. INDICATION The indication(s) include : unstable angina , dyspnea. PROCEDURE NARRATIVE The patient was brought electively to the cardiac catheterization lab. A timeout was performed confi rming the patient's name, date of , procedure, and site of procedure. All necessary personnel w ere wearing the appropriate protective equipment and radiation monitor devices. After explaining the risks and benefits of the procedure and alternatives, informed consent was obtained. (See nursing no philomena for medications administered). The right groin was sterilely prepped and draped in the usual fas hion. The right groin was infiltrated with 20 mL of 2% lidocaine for subcutaneous anesthesia. A 6 F sheath was inserted into the right femoral artery without difficulty via the modified seldinger techn ique with an 18G needle and a J-tipped guidewire. Next, an 8Fr sheath was inserted in the right commo n femoral vein in similar fashion without difficulty. A PA catheter was then advanced through the right heart chambers, pressures and saturations were obta ined. Subsequently, right and left coronary angiography was performed using standard 6Fr JR4 and JL4 diagnostic catheters. Left ventricular end diastolic pressure was obtained with a pigtail catheter a nd pullback was performed after left ventriculography. HEMODYNAMICS: LVEDP 12 mm Hg AO: 190/90 *No gradient on LV to aortic pullback. PCWP: 15 mm Hg PA: 55/26/38 RV: 57/10/16 RA: 8 mm Hg Tco: 5.6 L/min PA saturation: 67.9% FA saturation: 89% LEFT VENTRICULOGRAM: EF 65% Anterobasal: Normal. Anterolateral: Normal Apical: Normal Diaphragmatic: Normal Posterobasal: Normal *No significant mitral regurgitation *Significant LVH noted. CORONARY ANGIOGRAPHY: LM is a large caliber vessel with normal angiographic appearance. LAD is a large caliber vessel with normal angiographic appearance. D1 is a moderate caliber vessel with normal angiographic apeparance. LCx is a moderate to large caliber non-dominant vessel with normal angiographic appearance. OM1 is a moderate to large caliber vessel with normal angiographic appearance. RCA is a large caliber dominant vessel with normal angiographic appearance. RPDA and RPL are moderate caliber vessels with normal angiographic appearance. Conclusion 1. Normal biventricular filling pressures. 2. Mild pulmonary HTN. 3. No significant coronary artery disease. 4. Normal LV function. EF > 70% Recommendations Aggressive Medical Therapy
[2017-08-04 15:00] VITALS: BP 154/71
--- NOTE | 2017-08-04 15:59 | CARD ---
APPROVED REPORT EXAM: Two-dimensional and M-mode echocardiogram with Doppler and color Doppler. Other Information Quality : Good INDICATION Dyspnea Congestive Heart Failure 2D DIMENSIONS RVDd3.2 (2.9-3.5cm)Left Atrium(2D)4.6 (1.6-4.0cm) IVSd1.3 (0.7-1.1cm)Aortic Root(2D)2.9 (2.0-3.7cm) LVDd4.8 (3.9-5.9cm)LVOT Diameter2.3 (1.8-2.4cm) PWd1.4 (0.7-1.1cm)LVDs3.7 (2.5-4.0cm) FS (%) 27.0 %SV49.6 ml LVEF(%)55.0 (>50%) Aortic Valve AoV Peak Adelfo.263.2cm/sAoV VTI56.8cm AO Peak GR.27.7mmHgLVOT VTI 28.95cm AO Mean GR.15mmHgAVA (VTI)2.20cm2 AI P 1/2 [id number] Mitral Valve MV E Vumnfxer038.6cm/sMV DECEL BLOH441by MV A Eoqjxesz265.5cm/sE/A Ratio1.3 TDI Lateral E' P. V7.92cm/sMedial E' P. V3.80cm/s E/Lateral E'24.6E/Medial E'51.2 Tricuspid Valve TR P. Jngtukff512ll/sRAP BRLSMLGL6lzJc TR Peak Gr.55frXvPYZZ06ccIg Pulmonary Vein S1 Wpasantq77.8cm/sS2 Rmorbrfl48.07cm/s D2 Bwodiirp63.1cm/s LEFT VENTRICLE The left ventricle is normal size. There is mild concentric left ventricular hypertrophy. The Ejectio n Fraction is 55%. There is normal LV segmental wall motion. Transmitral Doppler flow pattern is Grad e II-pseudonormal filling dynamics. RIGHT VENTRICLE The right ventricle is normal size. The right ventricular systolic function is normal. ATRIA The left atrium is mildly dilated. The right atrium is mildly dilated. The interatrial septum is inta ct with no evidence for an atrial septal defect or patent foramen ovale as noted on 2-D or Doppler im aging. AORTIC VALVE The aortic valve is calcified with restricted leaflet motion. Doppler and Color Flow revealed trace a ortic regurgitation. Mild aortic stenosis. MG 16 mm Hg. MITRAL VALVE The mitral valve is calcified but opens well. Mitral annular calcification is mild to moderate. There is no evidence of mitral valve prolapse. There is no mitral valve stenosis. Doppler and Color-flow r evealed mild mitral regurgitation. TRICUSPID VALVE The tricuspid valve is normal in structure and function. Doppler and Color Flow revealed mild tricusp id regurgitation. There is moderate to severe pulmonary hypertension. The PA pressure was estimated a t 71 mmHg. There is no tricuspid valve stenosis. PULMONIC VALVE Doppler and Color Flow revealed trace pulmonic valvular regurgitation. There is no pulmonic valvular stenosis. GREAT VESSELS The aortic root is normal in size. The ascending aorta is normal in size. The IVC is normal in size a nd collapses >50% with inspiration. PERICARDIAL EFFUSION There is no evidence of significant pericardial effusion. Critical Notification Critical Value: No <Conclusion> The Ejection Fraction is 55%. There is normal LV segmental wall motion. There is mild concentric left ventricular hypertrophy. Mild aortic stenosis. MG 16 mm Hg. Doppler and Color Flow revealed mild tricuspid regurgitation. There is moderate to severe pulmonary h ypertension. The PA pressure was estimated at 71 mmHg.
[2017-08-04 19:00] VITALS: BP 167/82
[2017-08-04] MEDS: LATANOPROST 0.005% OPHTH SOLUTION 2.5ML BOTTLE. OU SCH (21:00)
[2017-08-04] MEDS: ZOLPIDEM 5 MG TABLET. PO PRN (21:24)
[2017-08-04 23:00] VITALS: BP 145/71
[2017-08-05 03:00] VITALS: BP 146/87
[2017-08-05 05:57] LABS: CALCIUM 8.7 mg/dL (8.5-10.1); CREATININE 9.9 mg/dL (0.6-1.0); GFR 4.7; POTASSIUM 5.2 mmol/L (3.5-5.1)
[2017-08-05] MEDS: HEPARIN PF for SUB-Q USE 5,000 UNIT/0.5 ML VIAL. SQ SCH ×3 (06:21→22:27)
[2017-08-05 07:00] VITALS: BP 190/70
[2017-08-05] MEDS: SUCRALFATE 1 GM TABLET. PO SCH ×3 (07:30→17:26)
[2017-08-05] MEDS: IPRATRPIUM/ALBUTEROL 0.5/2.5MG 3 ML NEBU. NEB SCH ×4 (07:51→20:38)
[2017-08-05] MEDS: SEVELAMER CARBONATE 800 MG TABLET. PO SCH ×3 (08:00→17:25)
[2017-08-05] MEDS: CARVEDILOL 12.5 MG TABLET. PO SCH ×2 (08:00→17:26)
--- NOTE | 2017-08-05 08:54 | RAD ---
2 view chest radiograph 08/05/2017 Clinical indication: CHF. Comparison: Chest radiograph 08/02/2017. Findings: Right IJ central venous catheter in similar position. Improvement in cardiomegaly, pulmonary venous congestion and near complete resolution of bilateral pleural effusions. Mild patchy opacities in both lung bases. No pneumothorax. There is multilevel thoracic spondylosis. Impression: 1. Improvement in findings of CHF and/or overload with near complete resolution of pleural effusions. 2. Residual bibasilar patchy opacities.
--- NOTE | 2017-08-05 09:55 | PDOC ---
PROGRESS NOTES Subjective Subjective frustrated, says chews ice because of dry mouth Objective Objective Vital Signs Date Time Temp Pulse Resp B/P (MAP) Pulse Ox O2 Delivery O2 Flow Rate FiO2 08/05/17 07:51 100 Nasal Cannula 2.0 08/05/17 07:00 97.7 68 18 190/70 (110) 97.7 Intake and Output 08/05/17 07:00 Intake Total 1700 ml Balance 1700 ml Intake Oral 1700 ml # Voids 2 Physical Exam Abdomen: Soft, No tenderness Heart: Regular rate (SR), Normal S1, Normal S2, Other (3/6 systolic murmur to LLS border) Extremities: No cyanosis, No edema General: Alert, Oriented X3, Cooperative, mild distress HEENT: Atraumatic, Mucous membr. moist/pink Lungs: Other (basilar crackles ) MUSCULOSKELETAL: Osteoarthritic changes both hands Neuro: Normal speech, Sensation intact Psych/Mental Status: Mental status NL, Mood NL Skin: No breakdown, No significant lesion Assessment Assessment FINAL IMPRESSION: 1. Shortness of breath secondary to multifactorial.flash pul edema, 2. Diastolic heart failure. Echocardiogram done 6 months ago showed good left ventricular function, 50%. 3. End-stage renal disease on hemodialysis Thursday, Thursday, Thursday. I am not sure if she is sticking to fluid restrictions. 4. Chest x-ray suggestive of interstitial lung infiltrates. We will have CT of the chest, high resolution and pulmonary consult. 5. Hypertension. 6. Arthritis. 7. Hyperlipidemia. PLAN:Dialysis today cardiac cath no blockages spoke with Pulmonary repeat cxr to f/u on chf.improving CT chest no ILD, mild pleural effusions ?home tomorrow Problems: Comment Review of Relevant I have reviewed the following items dorina (where applicable) has been applied. Labs Laboratory Tests Test 08/04/17 11:11 08/04/17 16:31 08/04/17 21:13 08/05/17 03:48 Glucose (Fingerstick) 87 mg/dL (70-99) 113 mg/dL (70-99) 103 mg/dL (70-99) Sodium Level 139 mmol/L (136-145) Potassium Level 5.2 mmol/L (3.5-5.1) Chloride Level 100 mmol/L (98-107) Carbon Dioxide Level 23 mmol/L (21-32) Anion Gap 16 (6-14) Blood Urea Nitrogen 77 mg/dL (7-20) Creatinine 9.9 mg/dL (0.6-1.0) Estimated GFR (Cockcroft-Gault) 4.7 Glucose Level 85 mg/dL (70-99) Calcium Level 8.7 mg/dL (8.5-10.1) Test 08/05/17 07:27 Glucose (Fingerstick) 90 mg/dL (70-99) Microbiology 08/02/17 Blood Culture - Preliminary, Resulted NO GROWTH AFTER 2 DAYS Medications Current Medications Diphenhydramine HCl (Benadryl) 25 mg 1X ONCE IVP ; Start 08/04/17 at 11:00; Stop 08/04/17 at 11:01; Status DC Diphenhydramine HCl (Benadryl) 50 mg STK-MED ONCE .ROUTE ; Start 08/04/17 at 09 :56; Stop 08/04/17 at 09:57; Status DC Fentanyl Citrate (Fentanyl 2ml Vial) 25 mcg 1X ONCE IV Last administered on 10:56; Start 08/04/17 at 10:30; Stop 08/04/17 at 10:31; Status DC Fentanyl Citrate (Fentanyl 2ml Vial) 100 mcg STK-MED ONCE .ROUTE ; Start at 10:00; Stop 08/04/17 at 10:01; Status DC Hydralazine HCl (Apresoline Inj) 10 mg 1X ONCE IVP Last administered on 10:56; Start 08/04/17 at 10:45; Stop 08/04/17 at 10:46; Status DC Hydralazine HCl (Apresoline Inj) 20 mg STK-MED ONCE .ROUTE ; Start 08/04/17 at 10:27; Stop 08/04/17 at 10:28; Status DC Nitroglycerin (Nitrostat) 0.4 mg 1X STAT SL Last administered on 08/04/17 10 :55; Start 08/04/17 at 10:24; Stop 08/04/17 at 10:29; Status DC Nitroglycerin (Nitrostat) 0.4 mg PRN Q5MIN PRN SL CHEST PAIN; Start 08/04/17 at 10:45 Nitroglycerin (Nitrostat) 0.4 mg STK-MED ONCE SL ; Start 08/04/17 at 10:06; Stop 08/04/17 at 10:07; Status DC Ondansetron HCl (Zofran) 4 mg 1X ONCE IV Last administered on 08/04/17t 10:55 ; Start 08/04/17 at 10:30; Stop 08/04/17 at 10:31; Status DC Ondansetron HCl (Zofran) 4 mg STK-MED ONCE .ROUTE ; Start 08/04/17 at 10:00; Stop 08/04/17 at 10:01; Status DC Sodium Chloride (Normal Saline Flush) 3 ml QSHIFT PRN IV AFTER MEDS AND BLOOD DRAWS; Start 08/04/17 at 10:45 Vitals/I & O Vital Sign - Last 24 Hours 08/04/17 08/04/17 08/04/17 08/04/17 10:51 10:55 10:56 10:56 Pulse 59 61 64 Resp 20 16 B/P (MAP) 188/99 Pulse Ox 94 94 O2 Delivery Room Air Room Air 08/04/17 08/04/17 08/04/17 08/04/17 11:13 11:26 15:00 15:01 Temp 97.7 97.7 Pulse 64 Resp 20 18 B/P (MAP) 154/71 (98) Pulse Ox 98 98 99 98 O2 Delivery Room Air Nasal Cannula Nasal Cannula Nasal Cannula O2 Flow Rate 2.0 2.0 2.0 08/04/17 08/04/17 08/04/17 08/04/17 17:06 18:35 19:00 20:00 Temp 98.2 98.2 Pulse 64 63 Resp 20 B/P (MAP) 154/71 167/82 (110) Pulse Ox 99 O2 Delivery Nasal Cannula Nasal Cannula O2 Flow Rate 2.0 2.0 08/04/17 08/04/17 08/05/17 08/05/17 21:00 23:00 03:00 07:00 Temp 98.9 98.2 97.7 98.9 98.2 97.7 Pulse 63 66 70 68 Resp 18 16 18 B/P (MAP) 167/82 145/71 (95) 146/87 (106) 190/70 (110) Pulse Ox 95 90 96 O2 Delivery Nasal Cannula O2 Flow Rate 2.0 08/05/17 07:51 Pulse Ox 100 O2 Delivery Nasal Cannula O2 Flow Rate 2.0 Intake and Output 08/04/17 08/04/17 08/05/17 15:00 23:00 07:00 Intake Total 360 ml 1100 ml 240 ml Balance 360 ml 1100 ml 240 ml YARY FAIRCHILD MD Aug 05, 2017 09:55
--- NOTE | 2017-08-05 11:12 | PDOC ---
Renal-Progress Notes Subjective Notes Notes NONE, BETTER History of Present Illness Hx of present illness STABLE Vitals Vitals Vital Signs Date Time Temp Pulse Resp B/P (MAP) Pulse Ox O2 Delivery O2 Flow Rate FiO2 08/05/17 07:51 100 Nasal Cannula 2.0 08/05/17 07:00 97.7 68 18 190/70 (110) 97.7 Weight Weight [ ] I.O. Intake and Output Intake and Output 08/05/17 07:00 Intake Total 1700 ml Balance 1700 ml Intake Oral 1700 ml # Voids 2 Labs Labs Laboratory Tests Test 08/04/17 16:31 08/04/17 21:13 08/05/17 03:48 08/05/17 07:27 Glucose (Fingerstick) 113 mg/dL (70-99) 103 mg/dL (70-99) 90 mg/dL (70-99) Sodium Level 139 mmol/L (136-145) Potassium Level 5.2 mmol/L (3.5-5.1) Chloride Level 100 mmol/L (98-107) Carbon Dioxide Level 23 mmol/L (21-32) Anion Gap 16 (6-14) Blood Urea Nitrogen 77 mg/dL (7-20) Creatinine 9.9 mg/dL (0.6-1.0) Estimated GFR (Cockcroft-Gault) 4.7 Glucose Level 85 mg/dL (70-99) Calcium Level 8.7 mg/dL (8.5-10.1) Micro Micro Microbiology 08/02/17 Blood Culture - Preliminary, Resulted NO GROWTH AFTER 2 DAYS Review of Systems Constitutional: yes: alert, oriented Ears/Nose/Throat: Yes: no symptom reported Eyes: Yes: no symptom reported Pulmonary: Yes dyspnea Cardiovascular: Yes no symptom reported Gastrointestional: Yes: constipation Genitourinary: Yes: no symptom reported Musculoskeletal: Yes: muscle stiffness Skin: Yes no symptom reported Psychiatric/Neurological: Yes: no symptom reported Endocrine: Yes: no symptom reported Physical Exam General Appearance: no apparent distress Skin: warm Respiratory: decreased breath sounds Heart: S1S2 Abdomen: soft, bowel sounds present Genitourinary: bladder flat, no mass Extremities: pulses present, atrophy Neurology: alert, oriented Musculoskeletal: Osteoarthritis Assessment Assessment IMP CHF ANEMIA HTN ESRD PLAN HD TODAY UF TO DW AND CHALLENGE ENC FLUID RESTRICTION MARIFER METZ MD Aug 05, 2017 11:12
--- NOTE | 2017-08-05 11:14 | PDOC ---
CARDIO Progress Notes Date and Time Date of Service 08/05/17 Time of Evaluation 1015 Subjective Subjective: No Chest Pain, No shortness of breath, No Palpitations Vitals Vitals Vital Signs Date Time Temp Pulse Resp B/P (MAP) Pulse Ox O2 Delivery O2 Flow Rate FiO2 08/05/17 07:51 100 Nasal Cannula 2.0 08/05/17 07:00 97.7 68 18 190/70 (110) 97.7 Weight Weight [ ] Input and Output Intake and Output Intake and Output 08/05/17 07:00 Intake Total 1700 ml Balance 1700 ml Intake Oral 1700 ml # Voids 2 Laboratory Labs Laboratory Tests Test 08/04/17 16:31 08/04/17 21:13 08/05/17 03:48 08/05/17 07:27 Glucose (Fingerstick) 113 mg/dL (70-99) 103 mg/dL (70-99) 90 mg/dL (70-99) Sodium Level 139 mmol/L (136-145) Potassium Level 5.2 mmol/L (3.5-5.1) Chloride Level 100 mmol/L (98-107) Carbon Dioxide Level 23 mmol/L (21-32) Anion Gap 16 (6-14) Blood Urea Nitrogen 77 mg/dL (7-20) Creatinine 9.9 mg/dL (0.6-1.0) Estimated GFR (Cockcroft-Gault) 4.7 Glucose Level 85 mg/dL (70-99) Calcium Level 8.7 mg/dL (8.5-10.1) Microbiology Micro Microbiology 08/02/17 Blood Culture - Preliminary, Resulted NO GROWTH AFTER 2 DAYS Review of Systems Constitutional: yes: alert, oriented Ears/Nose/Throat: Yes: no symptom reported Eyes: Yes: no symptom reported Pulmonary: Yes dyspnea Cardiovascular: Yes no symptom reported Gastrointestional: Yes: constipation Genitourinary: Yes: no symptom reported Musculoskeletal: Yes: muscle stiffness Skin: Yes no symptom reported Psychiatric/Neurological: Yes: no symptom reported Endocrine: Yes: no symptom reported Physical Exam HEENT: Neck Supple W Full Motion Chest: Symmetric LUNGS: Clear to Auscultation Heart: S1S2, RRR, murmurs (2/6 systolic murmur ) Abdomen: Soft N/T Extremities: No Edema Neurology: alert, oriented, follow commands Assessment Assessment 1. Chronic diastolic heart failure; cath revealed normal filling pressures; no CAD 2. Accelerated hypertension. 3. Moderate Pulmonary HTN; PAP 49 4. ESRD Recommendations 1. Discontinue Imdur. 2. Add scheduled hydralazine. Monitor BP trends with addition of Imdur. 2. Fluid maintenance via HD. 3. Continue with secondary prevention. BRIAN MEDINA APRN Aug 05, 2017 11:14
[2017-08-05] MEDS ORDERED: ISOSORBIDE MONONITRATE ER 30 MG TAB.ER.24H PO SCH (12:00)
--- NOTE | 2017-08-05 12:04 | PDOC ---
PULMONARY PROGRESS NOTES Subjective feels better Vitals Vital Signs Date Time Temp Pulse Resp B/P (MAP) Pulse Ox O2 Delivery O2 Flow Rate FiO2 08/05/17 07:51 100 Nasal Cannula 2.0 08/05/17 07:00 97.7 68 18 190/70 (110) 97.7 General: Alert, Oriented X4, No acute distress Lungs: Other (decrease bs) Cardiovascular: S1, S2 Abdomen: Soft, Non-tender, Other Extremities: Other Labs Laboratory Tests Test 08/03/17 18:24 08/03/17 21:33 08/04/17 06:30 08/04/17 07:21 Glucose (Fingerstick) 81 mg/dL (70-99) 130 mg/dL (70-99) 92 mg/dL (70-99) White Blood Count 6.1 x10^3/uL (4.0-11.0) Red Blood Count 3.60 x10^6/uL (3.50-5.40) Hemoglobin 11.4 g/dL (12.0-15.5) Hematocrit 34.7 % (36.0-47.0) Mean Corpuscular Volume 96 fL (79-100) Mean Corpuscular Hemoglobin 32 pg (25-35) Mean Corpuscular Hemoglobin Concent 33 g/dL (31-37) Red Cell Distribution Width 14.8 % (11.5-14.5) Platelet Count 168 x10^3/uL (140-400) Neutrophils (%) (Auto) 74 % (31-73) Lymphocytes (%) (Auto) 16 % (24-48) Monocytes (%) (Auto) 5 % (0-9) Eosinophils (%) (Auto) 4 % (0-3) Basophils (%) (Auto) 1 % (0-3) Neutrophils # (Auto) 4.5 x10^3uL (1.8-7.7) Lymphocytes # (Auto) 1.0 x10^3/uL (1.0-4.8) Monocytes # (Auto) 0.3 x10^3/uL (0.0-1.1) Eosinophils # (Auto) 0.3 x10^3/uL (0.0-0.7) Basophils # (Auto) 0.1 x10^3/uL (0.0-0.2) Sodium Level 139 mmol/L (136-145) Potassium Level 4.8 mmol/L (3.5-5.1) Chloride Level 100 mmol/L (98-107) Carbon Dioxide Level 25 mmol/L (21-32) Anion Gap 14 (6-14) Blood Urea Nitrogen 56 mg/dL (7-20) Creatinine 8.1 mg/dL (0.6-1.0) Estimated GFR (Cockcroft-Gault) 6.0 BUN/Creatinine Ratio 7 (6-20) Glucose Level 87 mg/dL (70-99) Hemoglobin A1c 4.5 % (4.8-5.6) Calcium Level 9.3 mg/dL (8.5-10.1) Total Bilirubin 0.7 mg/dL (0.2-1.0) Aspartate Amino Transf (AST/SGOT) 15 U/L (15-37) Alanine Aminotransferase (ALT/SGPT) 11 U/L (14-59) Alkaline Phosphatase 93 U/L (46-116) Total Protein 8.0 g/dL (6.4-8.2) Albumin 3.5 g/dL (3.4-5.0) Albumin/Globulin Ratio 0.8 (1.0-1.7) Triglycerides Level 74 mg/dL (0-150) Cholesterol Level 144 mg/dL (0-200) LDL Cholesterol, Calculated 84 mg/dL (0-100) VLDL Cholesterol, Calculated 15 mg/dL (0-40) Non-HDL Cholesterol Calculated 99 mg/dL (0-129) HDL Cholesterol 45 mg/dL (40-60) Cholesterol/HDL Ratio 3.2 Thyroid Stimulating Hormone (TSH) 1.644 uIU/mL (0.358-3.74) Random Vancomycin Level 20.5 mcg/mL Test 08/04/17 11:11 08/04/17 16:31 08/04/17 21:13 08/05/17 03:48 Glucose (Fingerstick) 87 mg/dL (70-99) 113 mg/dL (70-99) 103 mg/dL (70-99) Sodium Level 139 mmol/L (136-145) Potassium Level 5.2 mmol/L (3.5-5.1) Chloride Level 100 mmol/L (98-107) Carbon Dioxide Level 23 mmol/L (21-32) Anion Gap 16 (6-14) Blood Urea Nitrogen 77 mg/dL (7-20) Creatinine 9.9 mg/dL (0.6-1.0) Estimated GFR (Cockcroft-Gault) 4.7 Glucose Level 85 mg/dL (70-99) Calcium Level 8.7 mg/dL (8.5-10.1) Test 08/05/17 07:27 Glucose (Fingerstick) 90 mg/dL (70-99) Laboratory Tests Test 08/04/17 16:31 08/04/17 21:13 08/05/17 03:48 08/05/17 07:27 Glucose (Fingerstick) 113 mg/dL (70-99) 103 mg/dL (70-99) 90 mg/dL (70-99) Sodium Level 139 mmol/L (136-145) Potassium Level 5.2 mmol/L (3.5-5.1) Chloride Level 100 mmol/L (98-107) Carbon Dioxide Level 23 mmol/L (21-32) Anion Gap 16 (6-14) Blood Urea Nitrogen 77 mg/dL (7-20) Creatinine 9.9 mg/dL (0.6-1.0) Estimated GFR (Cockcroft-Gault) 4.7 Glucose Level 85 mg/dL (70-99) Calcium Level 8.7 mg/dL (8.5-10.1) Medications Active Scripts Medications Dose Route/Sig Max Daily Dose Days Date Category Tylenol (Acetaminophen) 325 Mg Tablet 1-2 Tab PO QID 08/02/17 Reported Protonix (Pantoprazole Sodium) 40 Mg Tablet.dr 1 Tab PO DAILY 07/26/17 Rx Lisinopril 20 Mg Tablet 1 Tab PO BID 30 04/24/17 Rx Amlodipine Besylate 5 Mg Tablet 5 Mg PO DAILY 30 04/24/17 Rx Nexium Capsule (Esomeprazole Magnesium) 20 Mg Capsule.dr 1 Cap PO DAILY 02/10/17 Reported Zolpidem Tartrate 5 Mg Tablet 5 Mg PO PRN QHS PRN 02/10/17 Reported Zofran (Ondansetron Hcl) 4 Mg Tablet 1 Tab PO Q6HRS 06/06/16 Rx Latanoprost 2.5 Ml Drops 1 Drop EACHEYE QHS 06/03/16 Reported Pantoprazole Sodium 40 Mg Tablet.dr 40 Mg PO DAILY 05/09/16 Reported Sensipar (Cinacalcet Hcl) 30 Mg Tablet 30 Mg PO DAILYWLUN 02/25/16 Reported Renvela (Sevelamer Carbonate) 800 Mg Tablet 800 Mg PO TIDWMEALS 02/25/16 Reported Nephro-Elsa Tablet (Folic Acid/Vitamin B Comp W-C) 0.8 Mg Tablet 1 Tab PO DAILY 02/25/16 Reported Nasonex (Mometasone Furoate) 17 Gm [place].pump 2 Sprays NS DAILY 02/25/16 Reported Clonidine Hcl 0.1 Mg Tablet 0.1 Mg PO PRN Q2HR PRN 02/25/16 Reported Carvedilol 25 Mg Tablet 12.5 Mg PO BIDWMEALS 02/25/16 Reported Carafate (Sucralfate) 1 Gm Tablet 1 Gm PO TIDAC 02/25/16 Reported Impression . 1. Acute hypoxic respiratory failure secondary to acute on chronic diastolic heart failure. The patient's previous echo had shown normal ejection fraction. 2. End-stage renal disease, on hemodialysis. She did not miss any dialysis sessions. 3. No significant history of tobacco use. 4. No symptoms suggesting pneumonia. 5. s/p right/left heart cath, normal filling pressures, moderate secondary pulmonary HTN, normal coronaries 6. abnormal ct chest with small effusions c/w CHF/ abnormal right kidney Plan . 1. Continue with present oxygen at 2 liters. 2. Keep saturation 92-94%. 3. Hemodialysis with increased ultrafiltration. 4. Follow chest x-ray with improving CHF. post dialysis sessions. 5. DC Antibiotics 6. Continue nebulizer treatments. 7. w/u for abnormal right kidney per PCP KASSANDRA CASTELLANOS MD Aug 05, 2017 12:04
[2017-08-05 14:44] VITALS: BP 165/68
[2017-08-05] MEDS: PANTOPRAZOLE 40 MG TABLET.DR. PO SCH (15:09)
[2017-08-05] MEDS: CINACALCET HCL 30 MG TABLET PO SCH (15:09)
[2017-08-05] MEDS: LISINOPRIL 20 MG TABLET PO SCH ×2 (15:09→21:01)
[2017-08-05] MEDS: amLODIPine BESYLATE 10 MG TABLET PO SCH (15:10)
[2017-08-05] MEDS: FOLIC/VIT B COMP W-C (RENAL) TABLET. PO SCH (15:10)
[2017-08-05] MEDS: ASPIRIN ENTERIC COATED 81 MG TABLET.DR. PO SCH (15:11)
[2017-08-05] MEDS: FLUTICASONE 50MCG/NASAL SPRAY 16GM BOTTLE. NS SCH (15:51)
[2017-08-05 19:25] VITALS: BP 141/55
[2017-08-05] MEDS: ZOLPIDEM 5 MG TABLET. PO PRN (21:00)
[2017-08-05] MEDS: ACETAMINOPHEN 325 MG TABLET. PO PRN (21:00)
[2017-08-05] MEDS: LATANOPROST 0.005% OPHTH SOLUTION 2.5ML BOTTLE. OU SCH (21:01)
[2017-08-05 23:25] VITALS: BP 182/78
[2017-08-06 03:30] VITALS: BP 159/71
[2017-08-06] MEDS: HEPARIN PF for SUB-Q USE 5,000 UNIT/0.5 ML VIAL. SQ SCH (06:26)
[2017-08-06 07:20] VITALS: BP 174/72
[2017-08-06] MEDS: IPRATRPIUM/ALBUTEROL 0.5/2.5MG 3 ML NEBU. NEB SCH ×2 (07:31→10:59)
--- NOTE | 2017-08-06 09:11 | PDOC ---
PROGRESS NOTES Subjective Subjective pt feels better,no sob Objective Objective Vital Signs Date Time Temp Pulse Resp B/P (MAP) Pulse Ox O2 Delivery O2 Flow Rate FiO2 08/06/17 07:25 98 Room Air 08/06/17 03:30 97.8 63 159/71 (100) 2.0 97.8 08/05/17 14:44 18 Intake and Output 08/06/17 07:00 Intake Total 1700 ml Balance 1700 ml Intake Oral 1700 ml # Voids 3 Physical Exam Abdomen: Soft, No tenderness Heart: Regular rate (SR), Normal S1, Normal S2, Other (3/6 systolic murmur to LLS border) Extremities: No cyanosis, No edema General: Alert, Oriented X3, Cooperative, mild distress HEENT: Atraumatic, Mucous membr. moist/pink Lungs: Other (basilar crackles ) MUSCULOSKELETAL: Osteoarthritic changes both hands Neuro: Normal speech, Sensation intact Psych/Mental Status: Mental status NL, Mood NL Skin: No breakdown, No significant lesion Assessment Assessment FINAL IMPRESSION: 1. Shortness of breath secondary to multifactorial,flash pul edema, 2. Diastolic heart failure. Echocardiogram done 6 months ago showed good left ventricular function, 50%. 3. End-stage renal disease on hemodialysis Thursday, Thursday, Thursday. I am not sure if she is sticking to fluid restrictions. 4. Chest x-ray suggestive of interstitial lung infiltrates. We will have CT of the chest, high resolution and pulmonary consult. 5. Hypertension. 6. Arthritis. 7. Hyperlipidemia. PLAN:d/c home today Dialysis yesterday cardiac cath no blockages spoke with Renal repeat cxr to f/u on chf.improving CT chest no ILD, mild pleural effusions 6 mts walk Problems: Comment Review of Relevant I have reviewed the following items dorina (where applicable) has been applied. Labs Laboratory Tests Test 08/05/17 16:30 08/05/17 21:37 08/06/17 08:08 Glucose (Fingerstick) 147 mg/dL (70-99) 85 mg/dL (70-99) 85 mg/dL (70-99) Microbiology 08/02/17 Blood Culture - Preliminary, Resulted NO GROWTH AFTER 3 DAYS Medications Current Medications Hydralazine HCl (Apresoline) 50 mg BID PO Last administered on 08/05/17t 21:01 ; Start 08/05/17 at 13:00 Isosorbide Mononitrate (Imdur) 60 mg DAILY PO ; Start 08/05/17 at 12:00; Stop 08/05/17 at 12:26; Status DC Vitals/I & O Vital Sign - Last 24 Hours 08/05/17 08/05/17 08/05/17 08/05/17 12:19 14:44 15:09 15:10 Temp 97.9 97.9 Pulse 70 70 70 Resp 18 B/P (MAP) 165/68 (100) 165/68 165/68 Pulse Ox 93 96 O2 Delivery Room Air Nasal Cannula O2 Flow Rate 2.0 08/05/17 08/05/17 08/05/17 08/05/17 15:10 15:45 17:26 19:25 Temp 97.9 97.9 Pulse 70 70 66 B/P (MAP) 165/68 165/68 141/55 (83) Pulse Ox 96 95 O2 Delivery Room Air Nasal Cannula O2 Flow Rate 2.0 08/05/17 08/05/17 08/05/17 08/05/17 20:00 20:40 21:01 21:01 Pulse 66 66 B/P (MAP) 141/55 141/55 Pulse Ox 96 O2 Delivery Room Air Room Air 08/05/17 08/06/17 08/06/17 23:25 03:30 07:25 Temp 98.4 97.8 98.4 97.8 Pulse 64 63 B/P (MAP) 182/78 (112) 159/71 (100) Pulse Ox 97 96 98 O2 Delivery Nasal Cannula Nasal Cannula Room Air O2 Flow Rate 2.0 2.0 Intake and Output 08/05/17 08/05/17 08/06/17 15:00 23:00 07:00 Intake Total 600 ml 1100 ml 0 ml Balance 600 ml 1100 ml 0 ml YARY FAIRCHILD MD Aug 06, 2017 09:11
[2017-08-06] MEDS ORDERED: HYDR-2869 PO (09:16)
[2017-08-06] MEDS ORDERED: AMLO10TA2 PO (09:16)
[2017-08-06] MEDS ORDERED: ASPI-612 PO (09:16)
[2017-08-06] MEDS: FLUTICASONE 50MCG/NASAL SPRAY 16GM BOTTLE. NS SCH (09:31)
[2017-08-06] MEDS: FOLIC/VIT B COMP W-C (RENAL) TABLET. PO SCH (09:31)
[2017-08-06] MEDS: CARVEDILOL 12.5 MG TABLET. PO SCH (09:31)
[2017-08-06] MEDS: PANTOPRAZOLE 40 MG TABLET.DR. PO SCH (09:31)
[2017-08-06] MEDS: ASPIRIN ENTERIC COATED 81 MG TABLET.DR. PO SCH (09:32)
[2017-08-06] MEDS: LISINOPRIL 20 MG TABLET PO SCH (09:32)
[2017-08-06] MEDS: SUCRALFATE 1 GM TABLET. PO SCH ×2 (09:32→13:15)
[2017-08-06] MEDS: SEVELAMER CARBONATE 800 MG TABLET. PO SCH ×2 (09:32→13:14)
[2017-08-06] MEDS: amLODIPine BESYLATE 10 MG TABLET PO SCH (09:32)
--- NOTE | 2017-08-06 10:21 | PDOC ---
Provider Note Provider Note Discharge summary dictated. #[id number] YARY FAIRCHILD MD Aug 06, 2017 10:21
--- NOTE | 2017-08-06 10:24 | RAD ---
Chest radiograph Two Views 08/06/2017 Clinical indication: CHF Comparison: Chest 08/05/2017 Findings: Right IJ central venous catheter in similar position. Heart size is upper limits of normal without pulmonary venous congestion. Improved aeration in both lung bases. No pneumothorax Impression: Improved aeration in both lung bases with stable cardiomegaly.
--- NOTE | 2017-08-06 10:34 | DS ---
DATE OF DISCHARGE: 08/06/2017 REASON FOR ADMISSION TO THE HOSPITAL: Shortness of breath/pulmonary edema. CONSULTATIONS: 1. Dr. Schultz. 2. Dr. Alex. 3. Dr. Cavazos. PROCEDURES DONE: 1. Echocardiogram. 2. Cardiac catheterization. 3. Dialysis. 4. CT chest. HOSPITAL COURSE: The patient is a 71-year-old female with history of hypertension, renal failure, on hemodialysis. She also has diastolic dysfunction. She came with shortness of breath, this happened second time in last 2 weeks. The patient was in flash pulmonary edema, was admitted to the ICU and dialyzed. She was taken to cardiac catheterization, which shows normal coronaries, normal left ventricular function, 60-70%, and the patient had an echocardiogram consistent with diastolic dysfunction. The patient was dialyzed in the hospital, was seen by Pulmonology. CT scan shows more of a congestive heart failure picture and repeat chest x-ray after required dialysis shows improvement in the congestive heart failure. The patient was feeling better, did a 6-minute walk and she was discharged. FINAL DIAGNOSES: 1. Shortness of breath secondary to flash pulmonary edema. 2. Chronic diastolic heart dysfunction. 3. Cardiac catheterization shows normal coronaries. 4. End-stage renal disease on hemodialysis. 5. Hypertension. 6. Hyperlipidemia. 7. Arthritis. DISPOSITION: Home. DISCHARGE MEDICATIONS: See MRAD for discharge medications. New 2 medications were added to oral medication, amlodipine as well as hydralazine. YARY FAIRCHILD MD DR: SAM/kailee JOB#: [id number] / [id number]
[2017-08-06 11:05] VITALS: BP 142/67
--- NOTE | 2017-08-06 11:53 | PDOC ---
Renal-Progress Notes Subjective Notes Notes STABLE History of Present Illness Hx of present illness BETTER Vitals Vitals Vital Signs Date Time Temp Pulse Resp B/P (MAP) Pulse Ox O2 Delivery O2 Flow Rate FiO2 08/06/17 11:05 97.8 64 18 142/67 (92) 95 Room Air 97.8 08/06/17 08:00 2.0 Weight Weight [ ] I.O. Intake and Output Intake and Output 08/06/17 07:00 Intake Total 1700 ml Balance 1700 ml Intake Oral 1700 ml # Voids 3 Labs Labs Laboratory Tests Test 08/05/17 16:30 08/05/17 21:37 08/06/17 08:08 Glucose (Fingerstick) 147 mg/dL (70-99) 85 mg/dL (70-99) 85 mg/dL (70-99) Micro Micro Microbiology 08/02/17 Blood Culture - Preliminary, Resulted NO GROWTH AFTER 3 DAYS Review of Systems Constitutional: yes: alert, oriented Ears/Nose/Throat: Yes: no symptom reported Eyes: Yes: no symptom reported Pulmonary: Yes dyspnea Cardiovascular: Yes no symptom reported Gastrointestional: Yes: constipation Genitourinary: Yes: no symptom reported Musculoskeletal: Yes: muscle stiffness Skin: Yes no symptom reported Psychiatric/Neurological: Yes: no symptom reported Endocrine: Yes: no symptom reported Physical Exam General Appearance: no apparent distress Skin: warm Respiratory: decreased breath sounds Heart: S1S2 Abdomen: soft, bowel sounds present Genitourinary: bladder flat, no mass Extremities: pulses present, atrophy Neurology: alert, oriented, follow commands Musculoskeletal: Osteoarthritis Assessment Assessment IMP CHF-COMPENSATED ANEMIA HTN ESRD PLAN HD TOMORROW OP D/C TODAY D/W ATTENDING MARIFER METZ MD Aug 06, 2017 11:53
[2017-08-06] MEDS: CINACALCET HCL 30 MG TABLET PO SCH (13:14)
--- NOTE | 2017-08-06 13:55 | PDOC ---
PULMONARY PROGRESS NOTES Subjective feels better Vitals Vital Signs Date Time Temp Pulse Resp B/P (MAP) Pulse Ox O2 Delivery O2 Flow Rate FiO2 08/06/17 11:05 97.8 64 18 142/67 (92) 95 Room Air 97.8 08/06/17 08:00 2.0 General: Alert, Oriented X4, No acute distress Lungs: Other (decrease bs) Cardiovascular: S1, S2 Abdomen: Soft, Non-tender, Other Extremities: Other Labs Laboratory Tests Test 08/04/17 16:31 08/04/17 21:13 08/05/17 03:48 08/05/17 07:27 Glucose (Fingerstick) 113 mg/dL (70-99) 103 mg/dL (70-99) 90 mg/dL (70-99) Sodium Level 139 mmol/L (136-145) Potassium Level 5.2 mmol/L (3.5-5.1) Chloride Level 100 mmol/L (98-107) Carbon Dioxide Level 23 mmol/L (21-32) Anion Gap 16 (6-14) Blood Urea Nitrogen 77 mg/dL (7-20) Creatinine 9.9 mg/dL (0.6-1.0) Estimated GFR (Cockcroft-Gault) 4.7 Glucose Level 85 mg/dL (70-99) Calcium Level 8.7 mg/dL (8.5-10.1) Test 08/05/17 16:30 08/05/17 21:37 08/06/17 08:08 08/06/17 11:56 Glucose (Fingerstick) 147 mg/dL (70-99) 85 mg/dL (70-99) 85 mg/dL (70-99) 67 mg/dL (70-99) Test 08/06/17 12:08 Glucose (Fingerstick) 80 mg/dL (70-99) Laboratory Tests Test 08/05/17 16:30 08/05/17 21:37 08/06/17 08:08 08/06/17 11:56 Glucose (Fingerstick) 147 mg/dL (70-99) 85 mg/dL (70-99) 85 mg/dL (70-99) 67 mg/dL (70-99) Test 08/06/17 12:08 Glucose (Fingerstick) 80 mg/dL (70-99) Medications Active Scripts Medications Dose Route/Sig Max Daily Dose Days Date Category Tylenol (Acetaminophen) 325 Mg Tablet 1-2 Tab PO QID 08/02/17 Reported Protonix (Pantoprazole Sodium) 40 Mg Tablet.dr 1 Tab PO DAILY 07/26/17 Rx Lisinopril 20 Mg Tablet 1 Tab PO BID 30 04/24/17 Rx Amlodipine Besylate 5 Mg Tablet 5 Mg PO DAILY 30 04/24/17 Rx Nexium Capsule (Esomeprazole Magnesium) 20 Mg Capsule.dr 1 Cap PO DAILY 02/10/17 Reported Zolpidem Tartrate 5 Mg Tablet 5 Mg PO PRN QHS PRN 02/10/17 Reported Zofran (Ondansetron Hcl) 4 Mg Tablet 1 Tab PO Q6HRS 06/06/16 Rx Latanoprost 2.5 Ml Drops 1 Drop EACHEYE QHS 06/03/16 Reported Pantoprazole Sodium 40 Mg Tablet.dr 40 Mg PO DAILY 05/09/16 Reported Sensipar (Cinacalcet Hcl) 30 Mg Tablet 30 Mg PO DAILYWLUN 02/25/16 Reported Renvela (Sevelamer Carbonate) 800 Mg Tablet 800 Mg PO TIDWMEALS 02/25/16 Reported Nephro-Elsa Tablet (Folic Acid/Vitamin B Comp W-C) 0.8 Mg Tablet 1 Tab PO DAILY 02/25/16 Reported Nasonex (Mometasone Furoate) 17 Gm [place].pump 2 Sprays NS DAILY 02/25/16 Reported Clonidine Hcl 0.1 Mg Tablet 0.1 Mg PO PRN Q2HR PRN 02/25/16 Reported Carvedilol 25 Mg Tablet 12.5 Mg PO BIDWMEALS 02/25/16 Reported Carafate (Sucralfate) 1 Gm Tablet 1 Gm PO TIDAC 02/25/16 Reported Impression . 1. Acute hypoxic respiratory failure secondary to acute on chronic diastolic heart failure. The patient's previous echo had shown normal ejection fraction. 2. End-stage renal disease, on hemodialysis. She did not miss any dialysis sessions. 3. No significant history of tobacco use. 4. No symptoms suggesting pneumonia. 5. s/p right/left heart cath, normal filling pressures, moderate secondary pulmonary HTN, normal coronaries 6. abnormal ct chest with small effusions c/w CHF/ abnormal right kidney Plan . 1. wean oxygen 2. Keep saturation 92-94%. 3. Hemodialysis with increased ultrafiltration.done 4. Follow chest x-ray with improving CHF. 5. off Antibiotics 6. Continue nebulizer treatments. 7. w/u for abnormal right kidney per PCP 6 min walk today and home KASSANDRA CASTELLANOS MD Aug 06, 2017 13:55
== END 2017-08-06 14:45 | disposition home or self-care (01) | DRG 286 ==
LOC: ER 11:32 → ED HOLD 13:02 → 5 SOUTH 16:59
PROVIDERS: ADMIT Internal Medicine; ATTEND Internal Medicine
PROC: 5A1D70Z Performance of Urinary Filtration, Intermittent, Less than 6 Hours Per Day (ICD-10-PCS; 2017-08-03)
PROC: 4A023N7 Measurement of Cardiac Sampling and Pressure, Left Heart, Percutaneous Approach (ICD-10-PCS; principal; 2017-08-04)
PROC: B2151ZZ Fluoroscopy of Left Heart using Low Osmolar Contrast (ICD-10-PCS; 2017-08-04)
PROC: B2111ZZ Fluoroscopy of Multiple Coronary Arteries using Low Osmolar Contrast (ICD-10-PCS; 2017-08-04)
DX: I50.33 Acute on chronic diastolic (congestive) heart failure (principal); J96.01 Acute respiratory failure with hypoxia; N18.6 End stage renal disease; E11.22 Type 2 diabetes mellitus with diabetic chronic kidney disease; I27.20 Pulmonary hypertension, unspecified; N25.81 Secondary hyperparathyroidism of renal origin; I13.2 Hypertensive heart and chronic kidney disease with heart failure and with stage 5 chronic kidney disease, or end stage renal disease; D64.9 Anemia, unspecified; E78.5 Hyperlipidemia, unspecified; E21.3 Hyperparathyroidism, unspecified; F32.9 Major depressive disorder, single episode, unspecified; F41.9 Anxiety disorder, unspecified; H40.9 Unspecified glaucoma; Z96.651 Presence of right artificial knee joint; I16.0 Hypertensive urgency; J06.9 Acute upper respiratory infection, unspecified; K21.9 Gastro-esophageal reflux disease without esophagitis; M19.90 Unspecified osteoarthritis, unspecified site; Z82.3 Family history of stroke; Z82.49 Family history of ischemic heart disease and other diseases of the circulatory system; Z83.3 Family history of diabetes mellitus; Z99.2 Dependence on renal dialysis; Z98.42 Cataract extraction status, left eye; Z98.41 Cataract extraction status, right eye
CPT/HCPCS: 36415; 71010; 71020; 71250; 80048; 80053; 80061; 80202; 82962; 83036; 83605; 84443; 84484; 85025; 87040; 93005; 93306; 93453; 94250; 94620; 94640; 94760; 96365; 96366; 96375; C1769; C1771; C1773; C1892; G0269; J0360; J2405; J2543; J3010; J3370; J7620; 99285-25

== ENCOUNTER → 2018-03-02 | Outpatient (CLI) | payer MEDICARE, BC | END | disposition home or self-care (01) | LOC: SLPLAB 18:07 | DX: G47.33 Obstructive sleep apnea (adult) (pediatric) (principal) | CPT/HCPCS: 95810 ==

== ENCOUNTER → 2018-03-18 | Outpatient (CLI) | payer MEDICARE, BC ==
[~2018-03-18] MED LIST changes: -ACET325T21 PO; -ALBU2.5V5 NEB; -AMLO10TA2 PO; -AMLO5TAB2 PO; -CARV25TA2 PO; -CINA30TA2 PO; -CIPR250T30 PO; -CLON0.1T PO; +CONTRAST GIVEN. MC; -ESOM20CA PO; -FOLI0.8T3 PO; -IBUP200T44 PO; -IPRA3AMP NEB; -LATA2.5D3 EACHEYE; -LISI-334 PO; -LISI40TA PO; -MOME17SP NS; -NAPR500T4 PO; -OMEP40CA5 PO; -ONDA4TAB7 PO; -PANT40TA3 PO; -PANT40TA5 PO; -SEVE800T9 PO; -SUCR1TAB35 PO; -ZOLP5TAB5 PO
[2018-03-18] MEDS: IOHEXOL 300 MG/ML 50 ML VIAL. INT ART (13:12)
[2018-03-18] MEDS: LIDOCAINE 1% Multi-Dose 20 ML VIAL. ID (13:12)
[2018-03-18] MEDS: BUPIVACAINE MPF 0.5% 10 ML VIAL for KCIC. IJ (13:12)
[2018-03-18] MEDS: methylPREDNISolone ACETATE 40 MG/ML VIAL. INT ART (13:12)
== END | disposition home or self-care (01) ==
LOC: KCIC 11:58
DX: M25.551 Pain in right hip (principal); G89.29 Other chronic pain; I13.2 Hypertensive heart and chronic kidney disease with heart failure and with stage 5 chronic kidney disease, or end stage renal disease; E11.22 Type 2 diabetes mellitus with diabetic chronic kidney disease; N18.6 End stage renal disease; I50.9 Heart failure, unspecified; Z88.5 Allergy status to narcotic agent; K21.9 Gastro-esophageal reflux disease without esophagitis; Z87.01 Personal history of pneumonia (recurrent); Z99.2 Dependence on renal dialysis; Z96.653 Presence of artificial knee joint, bilateral; F41.9 Anxiety disorder, unspecified; F32.9 Major depressive disorder, single episode, unspecified; Z82.49 Family history of ischemic heart disease and other diseases of the circulatory system; Z82.5 Family history of asthma and other chronic lower respiratory diseases; Z81.8 Family history of other mental and behavioral disorders; Z80.0 Family history of malignant neoplasm of digestive organs; Z79.84 Long term (current) use of oral hypoglycemic drugs
CPT/HCPCS: 20610; 77002; J1030; Q9967

== ENCOUNTER 2018-09-01 15:58 | Emergency (ER) | payer MEDICARE, BC ==
[~2018-09-01] VITALS: Ht 167.6 cm; Wt 79.4 kg
[~2018-09-01 15:58] MED LIST changes: +ACET325T21 PO; +ACET325T9 PO; +ALBU2.5V5 NEB; +AMLO10TA6 PO; +AMLO5TAB7 PO; +ASPI-612 PO; +CARV25TA2 PO; +CARV3.12 PO; +CINA30TA2 PO; +CIPR250T30 PO; +CLON0.1T PO; -CONTRAST GIVEN. MC; +ESOM20CA PO; +FOLI0.8T3 PO; +HYDR-2869 PO; +IBUP200T44 PO; +IPRA3AMP29 NEB; +ISOS30TA4 PO; +LATA2.5D3 EACHEYE; +LISI-130 PO; +LISI-334 PO; +MOME17SP NS; +NAPR-514 PO; +OMEP40CA5 PO; +ONDA4TAB7 PO; +PANT40TA3 PO; +PANT40TA5 PO; +SEVE800T9 PO; +SUCR1TAB35 PO; +ZOLP5TAB5 PO
[2018-09-01 16:59] LABS: BASO % 1 % (0-3); EOS # 0.2 x10^3/uL (0.0-0.7); EOS % 5 % (0-3); HEMATOCRIT 34.7 % (36.0-47.0); HEMOGLOBIN 11.9 g/dL (12.0-15.5); LYMPH # 1.5 x10^3/uL (1.0-4.8); LYMPH % 29 % (24-48); MEAN CORPUSCULAR HEMOGLOBIN 33 pg (25-35); MEAN CORPUSCULAR HGB CONC 34 g/dL (31-37); MEAN CORPUSCULAR VOLUME 95 fL (79-100); MONO # 0.3 x10^3/uL (0.0-1.1); MONO % 7 % (0-9); NEUT % 59 % (31-73); PLATELET COUNT 230 x10^3/uL (140-400); RED BLOOD COUNT 3.64 x10^6/uL (3.50-5.40); RED CELL DISTRIBUTION WIDTH 13.4 % (11.5-14.5); WHITE BLOOD COUNT 5.1 x10^3/uL (4.0-11.0)
[2018-09-01 17:10] LABS: CALCIUM 9.4 mg/dL (8.5-10.1); CREATININE 4.3 mg/dL (0.6-1.0); GFR 12.3; POTASSIUM 4.3 mmol/L (3.5-5.1)
--- NOTE | 2018-09-01 17:12 | PHYS DOC ---
Past Medical History Past Medical History: Diabetes-Type II, GERD, Hypertension, Renal Failure, Other Additional Past Medical Histor: ESRF Past Surgical History: Knee Replacement, Other Additional Past Surgical Histo: Bx cataracts, R Carpal, R arm fistula, Axillary /Head tumor, Bx knee, Alcohol Use: Occasionally Drug Use: None Adult General Chief Complaint Chief Complaint: DIZZY/LIGHT HEADED HPI HPI Patient is a 72 year old female brought in by ambulance with chief complaint of dizziness lightheadedness and nausea. Patient has been nauseous for about a month now but apparently at around 2 PM at dialysis it seemed to get worse. She was complaining of some. Umbilical pain but now she says that is actually more on the right side of her abdomen lower area. She still having some nausea but it is better than before she did feel lightheaded apparently she had normal blood pressure and never had any chest pain or shortness of breath. She is actually feeling better now but she is calm and awake she's been feeling this nauseous feeling just not right for about a month now. Urinalysis started at around 11:30 AM this occurred at 2 PM and they were able to finish her dialysis but she is worried that maybe they're not taking enough fluid off. Blood sugar was 61. She does not make urine. Review of Systems Review of Systems Constitutional: Denies fever or chills [] Eyes: Denies change in visual acuity, redness, or eye pain [] HENT: Denies nasal congestion or sore throat [] Respiratory: Denies cough Cardiovascular: No additional information not addressed in HPI [] All other systems were reviewed and found to be within normal limits, except as documented in this note. Current Medications Current Medications Current Medications Medications (Trade) Dose Ordered Sig/[facility] Start Time Stop Time Status Last Admin Dose Admin Ondansetron HCl (Zofran) 4 mg 1X ONCE 09/01/18 16:45 09/01/18 16:46 DC 09/01/18 17:13 4 MG Allergies Allergies Allergies Coded Allergies Type Severity Reaction Last Updated Verified chlorhexidine Allergy Intermediate Rash 09/01/18 Yes Opioids - Morphine Analogues Adverse Reaction Intermediate Nausea and Vomiting 09/01/18 Yes Opioids-Meperidine and Related Adverse Reaction Intermediate Nausea and Vomiting 09/01/18 Yes Opioids-Methadone and Related Adverse Reaction Intermediate Nausea and Vomiting 09/01/18 Yes codeine Adverse Reaction Intermediate Nausea and Vomiting 09/01/18 Yes Physical Exam Physical Exam Constitutional: Well developed, well nourished, no acute distress, non-toxic appearance. [] HENT: Normocephalic, atraumatic, bilateral external ears normal, oropharynx dry , no oral exudates, nose normal. [] Eyes: PERRLA, EOMI, conjunctiva normal, no discharge. [] Neck: Normal range of motion, no tenderness, supple, no stridor. [] Cardiovascular:Heart rate regular rhythm, no murmur [] Lungs & Thorax: faint crackles b/l lung bases. Abdomen: Bowel sounds normal, soft, ther is mild rlq tenderness, no masses, no pulsatile masses. [] Skin: Warm, dry, no erythema, no rash. [] Extremities: No tenderness, no cyanosis, no clubbing, ROM intact, one plus edema Neurologic: Alert and oriented X 3, normal motor function, normal sensory function, no focal deficits noted. [] Psychologic: Affect normal, judgement normal, mood normal. [] Current Patient Data Vital Signs Vital Signs Date Time Temp Pulse Resp B/P (MAP) Pulse Ox O2 Delivery O2 Flow Rate FiO2 09/01/18 19:30 63 22 99 09/01/18 15:58 98.1 136/57 (83) Room Air 98.1 Lab Values Laboratory Tests Test 09/01/18 16:20 09/01/18 19:00 White Blood Count 5.1 x10^3/uL (4.0-11.0) Red Blood Count 3.64 x10^6/uL (3.50-5.40) Hemoglobin 11.9 g/dL (12.0-15.5) L Hematocrit 34.7 % (36.0-47.0) L Mean Corpuscular Volume 95 fL (79-100) Mean Corpuscular Hemoglobin 33 pg (25-35) Mean Corpuscular Hemoglobin Concent 34 g/dL (31-37) Red Cell Distribution Width 13.4 % (11.5-14.5) Platelet Count 230 x10^3/uL (140-400) Neutrophils (%) (Auto) 59 % (31-73) Lymphocytes (%) (Auto) 29 % (24-48) Monocytes (%) (Auto) 7 % (0-9) Eosinophils (%) (Auto) 5 % (0-3) H Basophils (%) (Auto) 1 % (0-3) Neutrophils # (Auto) 3.0 x10^3uL (1.8-7.7) Lymphocytes # (Auto) 1.5 x10^3/uL (1.0-4.8) Monocytes # (Auto) 0.3 x10^3/uL (0.0-1.1) Eosinophils # (Auto) 0.2 x10^3/uL (0.0-0.7) Basophils # (Auto) 0.0 x10^3/uL (0.0-0.2) Sodium Level 139 mmol/L (136-145) Potassium Level 4.3 mmol/L (3.5-5.1) Chloride Level 100 mmol/L (98-107) Carbon Dioxide Level 23 mmol/L (21-32) Anion Gap 16 (6-14) H Blood Urea Nitrogen 26 mg/dL (7-20) H Creatinine 4.3 mg/dL (0.6-1.0) H Estimated GFR (Cockcroft-Gault) 12.3 BUN/Creatinine Ratio 6 (6-20) Glucose Level 87 mg/dL (70-99) Calcium Level 9.4 mg/dL (8.5-10.1) Total Bilirubin 0.4 mg/dL (0.2-1.0) Aspartate Amino Transferase (AST) 17 U/L (15-37) Alanine Aminotransferase (ALT) 16 U/L (14-59) Alkaline Phosphatase 170 U/L (46-116) H Troponin I Quantitative < 0.017 ng/mL (0.000-0.055) < 0.017 ng/mL (0.000-0.055) JB-Gdz-P-Type Natriuretic Peptide 3896 pg/mL (0-124) H Total Protein 8.4 g/dL (6.4-8.2) H Albumin 4.1 g/dL (3.4-5.0) Albumin/Globulin Ratio 1.0 (1.0-1.7) Lipase 462 U/L (73-393) H Laboratory Tests 18 16:20 Laboratory Tests 09/01/18 16:20 EKG EKG [] Interpretation Time: EKG shows a normal sinus rhythm WI intervals prolonged QT intervals borderline no STEMI is identified nonspecific ST changes high lateral Radiology/Procedures Radiology/Procedures [] Impressions: IMPRESSION: Limited evaluation of solid abdominal and pelvic organs due to lack of IV contrast. 1. No bowel obstruction. Normal appendix. 2. Atrophic bilateral kidneys with multiple low attenuating lesions likely simple cysts. There is however a masslike lesion in the right kidney also seen on previous exam from 04/18/2017. This is likely minimally complicated cyst although underlying RCC not ruled out. Ideally Nonemergent MRI of the abdomen with IV contrast is recommended. If not at least nonemergent ultrasound renal recommended. 3. Large calcified uterine fibroid. 4. Small sliding hiatal hernia. Electronically signed by: Roger Roper DO (09/01/2018 5:17 PM) [facility] Chest x-ray no definite abnormality seen interpreted by me the time of encounter. Course & Med Decision Making Course & Med Decision Making Pertinent Labs and Imaging studies reviewed. (See chart for details) []This is a 72-year-old female with a history of end-stage renal disease on hemodialysis Thursday diabetes and hypertension who is presenting to the emergency room with chief complaint of nausea some lower abdominal discomfort and lightheadedness during dialysis. Overall I have low suspicion for acute coronary syndrome but she can get troponin testing to rule that out. We will do an x-ray of the lungs to evaluate for fluid overload or pneumonia which I think is less likely. Check electrolytes. Patient gets Zofran in the emergency room we did a CT scan abdomen and pelvis to evaluate the appendix given her abdominal examination although overall I did have somewhat low suspicion for this. I did tell the patient about the abnormal CT finding and the kidneys and the need for outpatient follow-up and she endorses understanding. Noted the borderline lipase patient is really not having any epigastric pain. Patient has had a history of pancreatic tenderness in the past multifactorial in nature before. We will do a abdominal ultrasound to evaluate for gallstones at this time. Repeat troponin plan for 1899 care will be signed over to Dr. ty also ruq u/s pending. Dr. Ty's note Received patient at 1800: Agree with previous H&P. Limited ultrasound of the abdomen IMPRESSION: 1. Layering sludge in the gallbladder. No cholelithiasis or sonographic evidence of acute cholecystitis. 2. Right renal lesion not typical of simple cyst. Differential diagnoses includes minimally complicated cyst although underlying RCC is not ruled out. Nonemergent MRI of the abdomen with IV contrast is recommended. Repeat troponin was obtained and was negative. Patient continued stable in the emergency department. She was informed of both the ultrasound as well as the laboratory findings. Patient voiced understanding. All questions were answered. Patient was discharged in improved condition. Dragon Disclaimer Dragon Disclaimer This electronic medical record was generated, in whole or in part, using a voice recognition dictation system. Departure Departure Referrals: YARY FAIRCHILD MD (PCP) Scripts Prochlorperazine Maleate (Compazine) 5 Mg Tablet 5 MG PO TID PRN for NAUSEA/VOMITING, #30 TAB Prov: FLOR DEGROOT MD 09/01/18 FLOR DEGROOT MD Sep 01, 2018 17:12 TISH TY DO Sep 01, 2018 19:08
[2018-09-01] MEDS: ONDANSETRON PF 4 MG/2 ML VIAL. IV ONE (17:13)
[2018-09-01 17:16] LABS: ALBUMIN 4.1 g/dL (3.4-5.0); TOTAL BILIRUBIN 0.4 mg/dL (0.2-1.0); TOTAL PROTEIN 8.4 g/dL (6.4-8.2)
--- NOTE | 2018-09-01 17:21 | RAD ---
PQRS Compliance statement: One or more of the following individualized dose reduction techniques were utilized for this examination: 1. Automated exposure control. 2. Adjustment of the mA and/or kV according to patient size. 3. Use of iterative reconstruction technique. Indication:RLQ PAIN NO CONTRAST PREV SENT TECHNIQUE: CT abdomen and pelvis without IV contrast with multiplanar reformats. COMPARISON: 04/18/2017 FINDINGS: Limited evaluation of solid abdominal and pelvic organs due to lack of IV contrast. Heart is normal in size. No pericardial or pleural effusion. Small sliding hiatal hernia. Clear lung bases. Noncontrast appearance of the Liver, spleen, pancreas, adrenals within normal limits. Concentrated bile or layering stones are seen in the gallbladder. No pericholecystic fluid. Atrophic bilateral [place] kidneys. 4.0 x 3.5 cm hypoattenuating masslike lesion is seen in the right kidney. Multiple bilateral low attenuating lesions are seen. No enlarged retroperitoneal or pelvic adenopathy. No free pelvic fluid or ascites. No bowel obstruction. Appendix is normal. Enlarged uterus with large calcified fibroid is seen. The calcified fibroid measures 10.0 x 7.3 x 9.6 cm. Urinary bladder is decompressed however shows no radiopaque stones. Mild dextroscoliosis of the mid lumbar spine. No suspicious bony lesion. Multilevel degenerative disc disease is seen in the visualized spine. IMPRESSION: Limited evaluation of solid abdominal and pelvic organs due to lack of IV contrast. 1. No bowel obstruction. Normal appendix. 2. Atrophic bilateral kidneys with multiple low attenuating lesions likely simple cysts. There is however a masslike lesion in the right kidney also seen on previous exam from 04/18/2017. This is likely minimally complicated cyst although underlying RCC not ruled out. Ideally Nonemergent MRI of the abdomen with IV contrast is recommended. If not at least nonemergent ultrasound renal recommended. 3. Large calcified uterine fibroid. 4. Small sliding hiatal hernia. Electronically signed by: Roger Roper DO (09/01/2018 5:17 PM) [facility]
--- NOTE | 2018-09-01 17:42 | RAD ---
Indication:ER PATIENT. SHORTNESS OF AIR, DIZZINESS. Hx HTN, DIABETES. PRIOR XRAY. TECHNIQUE:Portable AP chest X-ray COMPARISON:01/18/2018 FINDINGS: Heart is normal in size. Bilateral prominent bronchovascular markings are seen. No focal consolidation. No pneumothorax or pleural effusion. Visualized bony thorax is within normal limits. IMPRESSION: Findings suggests bronchitis. Electronically signed by: Roger Roper DO (09/01/2018 5:38 PM) [facility]
[2018-09-01] MEDS ORDERED: PROC5TAB34 PO (17:43)
--- NOTE | 2018-09-01 19:03 | RAD ---
Indication:pain, nausea today TECHNIQUE: Grayscale, color Doppler and spectral waveform is of the abdomen obtained. COMPARISON:CT abdomen pelvis from same day FINDINGS:Visualized pancreas is within normal limits. Main pancreatic duct is top normal in size measuring 3 mm in diameter. No aortic aneurysm. IVC is visualized. Main portal vein is patent with hepatopedal flow. Liver measures 16 cm in longest dimension. Right kidney measures 10.2 cm in length without hydronephrosis. Multiple hypoechoic lesions are seen in the right kidney, the largest measuring 1.7 x 1.9 x 2.1 cm without internal vascularity. No gallbladder wall thickening or pericholecystic fluid. Layering sludge is seen in the gallbladder. CBD measures 4 mm in diameter and is within normal limits. IMPRESSION: 1. Layering sludge in the gallbladder. No cholelithiasis or sonographic evidence of acute cholecystitis. 2. Right renal lesion not typical of simple cyst. Differential diagnoses includes minimally complicated cyst although underlying RCC is not ruled out. Nonemergent MRI of the abdomen with IV contrast is recommended. Electronically signed by: Roger Roper DO (09/01/2018 6:59 PM) [facility]
[2018-09-01 19:30] VITALS: BP 122/53
--- NOTE | 2018-09-01 20:12 | EKG ---
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
== END 2018-09-01 20:15 | disposition home or self-care (01) ==
LOC: ER 15:58
DX: R42 Dizziness and giddiness (principal); R11.0 Nausea; K44.9 Diaphragmatic hernia without obstruction or gangrene; D25.9 Leiomyoma of uterus, unspecified; E11.22 Type 2 diabetes mellitus with diabetic chronic kidney disease; I12.0 Hypertensive chronic kidney disease with stage 5 chronic kidney disease or end stage renal disease; N18.6 End stage renal disease; Z99.2 Dependence on renal dialysis; Z88.5 Allergy status to narcotic agent; Z88.8 Allergy status to other drugs, medicaments and biological substances
CPT/HCPCS: 36415; 71045; 74176; 76705; 80053; 83690; 83880; 84484; 85025; 93005; 96374; 99284; J2405

== ENCOUNTER 2019-06-26 13:55 | Inpatient (IN) | payer MEDICARE, BC ==
[~2019-06-26] VITALS: Ht 167.6 cm; Wt 80.4 kg
[~2019-06-26 13:55] MED LIST changes: -AMLO10TA6 PO; +AMLO10TA8 PO; +AMLO5TAB10 PO; -AMLO5TAB7 PO; +METO10TA81 PO; +OMEP40CA45 PO; -OMEP40CA5 PO; -PANT40TA3 PO; -PANT40TA5 PO; +PANT40TA77 PO; +PROC5TAB34 PO
--- NOTE | 2019-06-26 14:56 | RAD ---
Indication:Weakness. TECHNIQUE:Portable AP chest X-ray COMPARISON: 10/06/2018 FINDINGS: Heart is mildly enlarged in size. Interstitial opacities bilaterally. Mild blunting of bilateral costophrenic angles. No pneumothorax. Visualized bony thorax within normal limits. IMPRESSION: Interstitial pulmonary edema with trace bilateral pleural effusions. Electronically signed by: Roger Roper DO (06/26/2019 2:54 PM) [facility]
[2019-06-26 16:01] LABS: BASO % 1 % (0-3); EOS # 0.2 x10^3/uL (0.0-0.7); EOS % 5 % (0-3); HEMATOCRIT 32.1 % (36.0-47.0); HEMOGLOBIN 10.6 g/dL (12.0-15.5); LYMPH # 0.7 x10^3/uL (1.0-4.8); LYMPH % 21 % (24-48); MEAN CORPUSCULAR HEMOGLOBIN 33 pg (25-35); MEAN CORPUSCULAR HGB CONC 33 g/dL (31-37); MEAN CORPUSCULAR VOLUME 99 fL (79-100); MONO # 0.2 x10^3/uL (0.0-1.1); MONO % 7 % (0-9); NEUT # 2.3 x10^3/uL (1.8-7.7); NEUT % 68 % (31-73); PLATELET COUNT 111 x10^3/uL (140-400); RED BLOOD COUNT 3.25 x10^6/uL (3.50-5.40); RED CELL DISTRIBUTION WIDTH 14.9 % (11.5-14.5); WHITE BLOOD COUNT 3.4 x10^3/uL (4.0-11.0)
[2019-06-26 16:10] LABS: CREATININE 7.1 mg/dL (0.6-1.0); GFR 6.9; POTASSIUM 5.3 mmol/L (3.5-5.1)
[2019-06-26 16:24] LABS: ALBUMIN 3.7 g/dL (3.4-5.0); TOTAL BILIRUBIN 0.4 mg/dL (0.2-1.0); TOTAL PROTEIN 7.5 g/dL (6.4-8.2)
--- NOTE | 2019-06-26 17:22 | PHYS DOC ---
Past Medical History Past Medical History: Hypertension, Renal Disease Additional Past Medical Histor: ESRF Past Surgical History: Knee Replacement, Other Additional Past Surgical Histo: Bx cataracts, R Carpal, R arm fistula, Axillary/Head tumor, Bx knee, Alcohol Use: None Drug Use: None Adult General Chief Complaint Chief Complaint: SHORTNESS OF BREATH HPI HPI Patient is a 73 year old female with history of chronic renal failure on dialysis who presents with complaining of shortness of breath. Patient states she missed her dialysis 5 days ago because of not feeling good and having episode of nausea and vomiting and diarrhea that resolved the next day and had diuresis 4 and 3 days ago but still feels shortness of breath and having generalized weakness. Patient denies chest pain, cough, fever and chills, focal neuro deficit, headache, nausea and vomiting, abdominal pain, sick contact. Review of Systems Review of Systems Constitutional: Denies fever or chills [] Eyes: Denies change in visual acuity, redness, or eye pain [] HENT: Denies nasal congestion or sore throat [] Respiratory: Denies cough, reports shortness of breath [] Cardiovascular: No additional information not addressed in HPI [] GI: Denies abdominal pain, nausea, vomiting, bloody stools or diarrhea [] : Denies dysuria or hematuria [] Musculoskeletal: Denies back pain or joint pain [] Integument: Denies rash or skin lesions [] Neurologic: Denies headache, focal weakness or sensory changes [] Endocrine: Denies polyuria or polydipsia [] All other systems were reviewed and found to be within normal limits, except as documented in this note. Allergies Allergies Allergies Coded Allergies Type Severity Reaction Last Updated Verified chlorhexidine Allergy Intermediate Rash 09/01/18 Yes Opioids - Morphine Analogues Adverse Reaction Intermediate Nausea and Vomiting 09/01/18 Yes Opioids-Meperidine and Related Adverse Reaction Intermediate Nausea and Vomiting 09/01/18 Yes Opioids-Methadone and Related Adverse Reaction Intermediate Nausea and Vo miting 09/01/18 Yes codeine Adverse Reaction Intermediate Nausea and Vomiting 09/01/18 Yes Physical Exam Physical Exam Constitutional: Well developed, well nourished, mild distress, non-toxic appearance. [] HENT: Normocephalic, atraumatic. Eyes: PERRLA, EOMI, conjunctiva normal, no discharge. [] Neck: Normal range of motion, no tenderness, supple, no stridor. [] Cardiovascular: Bradycardia, no murmur [] Lungs & Thorax: No respiratory distress, bilateral basilar rales. Abdomen: Bowel sounds normal, soft, no tenderness, no masses, no pulsatile masses. [] Skin: Warm, dry, no erythema, no rash. [] Back: No tenderness, no CVA tenderness. [] Extremities: No tenderness, no cyanosis, no clubbing, ROM intact, no edema. [] Neurologic: Alert and oriented X 3, no focal deficits noted. [] Psychologic: Affect normal, judgement normal, mood normal. [] Current Patient Data Vital Signs Vital Signs Date Time Temp Pulse Resp B/P (MAP) Pulse Ox O2 Delivery O2 Flow Rate FiO2 06/26/19 14:32 97.5 47 16 200/101 (134) 96 Room Air 97.5 Lab Values Laboratory Tests Test 06/26/19 15:55 White Blood Count 3.4 x10^3/uL (4.0-11.0) L Red Blood Count 3.25 x10^6/uL (3.50-5.40) L Hemoglobin 10.6 g/dL (12.0-15.5) L Hematocrit 32.1 % (36.0-47.0) L Mean Corpuscular Volume 99 fL (79-100) Mean Corpuscular Hemoglobin 33 pg (25-35) Mean Corpuscular Hemoglobin Concent 33 g/dL (31-37) Red Cell Distribution Width 14.9 % (11.5-14.5) H Platelet Count 111 x10^3/uL (140-400) L Neutrophils (%) (Auto) 68 % (31-73) Lymphocytes (%) (Auto) 21 % (24-48) L Monocytes (%) (Auto) 7 % (0-9) Eosinophils (%) (Auto) 5 % (0-3) H Basophils (%) (Auto) 1 % (0-3) Neutrophils # (Auto) 2.3 x10^3/uL (1.8-7.7) Lymphocytes # (Auto) 0.7 x10^3/uL (1.0-4.8) L Monocytes # (Auto) 0.2 x10^3/uL (0.0-1.1) Eosinophils # (Auto) 0.2 x10^3/uL (0.0-0.7) Basophils # (Auto) 0.0 x10^3/uL (0.0-0.2) Sodium Level 144 mmol/L (136-145) Potassium Level 5.3 mmol/L (3.5-5.1) H Chloride Level 108 mmol/L (98-107) H Carbon Dioxide Level 21 mmol/L (21-32) Anion Gap 15 (6-14) H Blood Urea Nitrogen 61 mg/dL (7-20) H Creatinine 7.1 mg/dL (0.6-1.0) H Estimated GFR (Cockcroft-Gault) 6.9 BUN/Creatinine Ratio 9 (6-20) Glucose Level 78 mg/dL (70-99) Lactic Acid Level 0.9 mmol/L (0.4-2.0) Calcium Level 8.0 mg/dL (8.5-10.1) L Total Bilirubin 0.4 mg/dL (0.2-1.0) Aspartate Amino Transferase (AST) 16 U/L (15-37) Alanine Aminotransferase (ALT) 8 U/L (14-59) L Alkaline Phosphatase 174 U/L (46-116) H Creatine Kinase 67 U/L (26-192) Troponin I Quantitative < 0.017 ng/mL (0.000-0.055) MJ-Mfa-Y-Type Natriuretic Peptide 21940 pg/mL (0-124) H Total Protein 7.5 g/dL (6.4-8.2) Albumin 3.7 g/dL (3.4-5.0) Albumin/Globulin Ratio 1.0 (1.0-1.7) Laboratory Tests 06/26/19 15:55 Laboratory Tests 06/26/19 15:55 EKG EKG EKG interpreted by me. EKG at 1408 showed bradycardia at rate of 53, prolonged NM interval at 218, Normal HEENT high lateral leads, prolonged QT at 506, Q wave in anteroseptal leads, no acute ST and T-wave elevation. Radiology/Procedures Radiology/Procedures [][facility] [address] [place], [place] [id number] IMAGING REPORT Signed PATIENT: EMERALD MAI AACCOUNT: [id number] : 1945 LOCATION: ER AGE: 73 SEX: F EXAM STATUS: PRE ER ORD. PHYSICIAN: LAURA MCKEON MD REASON: weakness PROCEDURE: PORTABLE CHEST 1V Indication:Weakness. TECHNIQUE:Portable AP chest X-ray COMPARISON: 10/06/2018 FINDINGS: Heart is mildly enlarged in size. Interstitial opacities bilaterally. Mild blunting of bilateral costophrenic angles. No pneumothorax. Visualized bony thorax within normal limits. IMPRESSION: Interstitial pulmonary edema with trace bilateral pleural effusions. Electronically signed by: Roger Roper DO (06/26/2019 2:54 PM) [facility] DICTATED and SIGNED BY: ROGER ROPER DO DATE: 06/26/19 1454 Course & Med Decision Making Course & Med Decision Making Pertinent Labs and Imaging studies reviewed. (See chart for details) Evaluation of patient in ER showed 73-year-old female patient with history of chronic renal failure and complaining of generalized weakness and shortness of breath. Patient had O2 sat of 97% at room air without respiratory distress. Patient had bibasilar rales. She had potassium of 5.3 and elevation of BNP. Chest x-ray showed pulmonary edema.Patient requiring admission for further evaluation and treatment. Discussed with Dr. Fairchild who is in agreement with admission. Discussed findings and plan with patient and family, who acknowledge understanding and agreement. On-call sales representative publications Dr. Cavazos was consulted at 1730 and recommended dialysis tomorrow. Dragon Disclaimer Dragon Disclaimer This electronic medical record was generated, in whole or in part, using a voice recognition dictation system. Departure Departure Impression: Primary Impression: Generalized weakness Additional Impressions: Chronic kidney disease with end stage renal failure on dialysis Hyperkalemia SOB (shortness of breath) Congestive heart failure Pulmonary edema Disposition: ADMITTED INPATIENT (at 1650) Admitting Physician: Yasir Fairchild (accepted admission at 1649) Condition: IMPROVED Referrals: YASIR FAIRCHILD MD (PCP) Critical Care Time Critical care time was 40 minutes exclusive of procedures. Problem Qualifiers Additional Impressions: Congestive heart failure Heart failure type: unspecified Heart failure chronicity: unspecified Qualified Codes: I50.9 - Heart failure, unspecified Pulmonary edema Chronicity: acute Qualified Codes: J81.0 - Acute pulmonary edema LAURA MCKEON MD Jun 26, 2019 17:22
[2019-06-26] MEDS ORDERED: ALBUTEROL SULFATE 2.5 MG/3 ML NEBU. CONT NEB ONE (17:30)
[2019-06-26 18:00] VITALS: BP 216/86
[2019-06-26] MEDS ORDERED: hydrALAZINE 20 MG/ML VIAL. IVP PRN (18:15)
[2019-06-26] MEDS ORDERED: BRIM5DRO2 OP (19:11)
[2019-06-26] MEDS ORDERED: CHOL10003 PO (19:11)
[2019-06-26] MEDS ORDERED: HYDR-2759 PO (19:11)
[2019-06-26] MEDS ORDERED: HYDROcodone/APAP 5/325MG 1 TAB TABLET PO PRN (19:15)
[2019-06-26 19:25] VITALS: BP 183/66
[2019-06-26] MEDS ORDERED: ONDANSETRON ODT 4 MG TAB.RAPDIS. PO PRN (21:00)
[2019-06-26] MEDS: BRIMONIDINE 0.2% OPHTH SOLUTION 5ML BOTTLE. OU SCH (22:25)
[2019-06-26] MEDS: TIMOLOL 0.5% OPHTH SOLUTION 5ML BOTTLE. OU SCH (22:25)
[2019-06-26] MEDS: LATANOPROST 0.005% OPHTH SOLUTION 2.5ML BOTTLE. OU SCH (22:25)
[2019-06-26] MEDS: LISINOPRIL 20 MG TABLET PO SCH (22:26)
[2019-06-26] MEDS: ACETAMINOPHEN 325 MG TABLET. PO SCH (22:26)
[2019-06-26] MEDS: CHOLECALCIFEROL (VITAMIN D3) 1,000 UNIT TABLET PO SCH (22:26)
[2019-06-26] MEDS: METOCLOPRAMIDE 10 MG TABLET. PO SCH (22:27)
[2019-06-26] MEDS: HEPARIN for SUB-Q USE 5,000 UNIT/ML VIAL. SQ SCH (22:35)
[2019-06-26] MEDS: ZOLPIDEM 5 MG TABLET. PO PRN (23:32)
[2019-06-26 23:56] VITALS: BP 129/51
[2019-06-27 03:39] VITALS: BP 141/61
--- NOTE | 2019-06-27 06:27 | EKG ---
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
[2019-06-27 07:00] VITALS: BP 153/59
[2019-06-27] MEDS: SUCRALFATE 1 GM TABLET. PO SCH ×3 (07:13→16:30)
[2019-06-27] MEDS ORDERED: IV NORMAL SALINE 1000ML BAG 1,000 ML IV PRN ×2 (08:23)
[2019-06-27] MEDS ORDERED: DIALYSIS PATIENT. MC PRN ×2 (08:30)
[2019-06-27] MEDS ORDERED: ALBUMIN HUMAN 25% 200 ML IV PRN (08:30)
[2019-06-27] MEDS: ASPIRIN ENTERIC COATED 81 MG TABLET.DR. PO SCH (08:30)
[2019-06-27] MEDS: FOLIC/VIT B COMP W-C (RENAL) TABLET. PO SCH (08:30)
[2019-06-27] MEDS: ACETAMINOPHEN 325 MG TABLET. PO SCH ×4 (08:31→21:20)
[2019-06-27] MEDS: PANTOPRAZOLE 40 MG TABLET.DR. PO SCH (08:31)
[2019-06-27] MEDS: CHOLECALCIFEROL (VITAMIN D3) 1,000 UNIT TABLET PO SCH ×2 (08:31→21:19)
[2019-06-27] MEDS: SEVELAMER CARBONATE 800 MG TABLET. PO SCH ×3 (08:31→17:43)
[2019-06-27] MEDS: ISOSORBIDE MONONITRATE ER 30 MG TAB.ER.24H PO SCH (08:31)
[2019-06-27] MEDS: LISINOPRIL 20 MG TABLET PO SCH ×2 (08:32→21:20)
[2019-06-27] MEDS: amLODIPine BESYLATE 10 MG TABLET PO SCH (08:32)
[2019-06-27] MEDS: METOCLOPRAMIDE 10 MG TABLET. PO SCH ×4 (08:33→21:20)
[2019-06-27] MEDS: FLUTICASONE 50MCG/NASAL SPRAY 16GM BOTTLE. NS SCH (08:33)
[2019-06-27] MEDS: TIMOLOL 0.5% OPHTH SOLUTION 5ML BOTTLE. OU SCH ×2 (08:34→21:17)
[2019-06-27] MEDS: BRIMONIDINE 0.2% OPHTH SOLUTION 5ML BOTTLE. OU SCH ×2 (08:34→21:17)
[2019-06-27] MEDS: HEPARIN for SUB-Q USE 5,000 UNIT/ML VIAL. SQ SCH ×2 (08:46→21:28)
--- NOTE | 2019-06-27 10:19 | PDOC ---
Provider Note Provider Note Pt seen H&P dictated.#[id number] YARY FAIRCHILD MD Jun 27, 2019 10:19
[2019-06-27 10:39] VITALS: BP 108/57
--- NOTE | 2019-06-27 10:54 | PDOC2 ---
CONSULT Date of Consult Date of Consult DATE: 06/27/19 TIME: 10:48 Reason for Consult Reason for Consult: ESRD AND SOB Referring Physician Referring Physician: DEVORAH Identification/Chief Complaint Chief Complaint SOB Source Source: Chart review, Patient History of Present Illness Reason for Visit: THIS IS YR OLD WITH SOB. SHE HAS ESRD AND IS ON HD ON MWF. LAST HD ON THURSDAY. MISSED HER TX ON THU BUT WENT TO MAKE UP ON THURSDAY. THEY HAVE NOT BEEN ABLE TO GET TO HER DW DUE TO HYPOTENSION. SHE ALSO HAVE GENERALIZED WEAKNESS. DID HAVE A DAY OF VOMITING AND DIARRHEA LAST WEEK BUT RESOLVED NOW. ESRD DUE TO HTN HX. LABS ARE C/W ESRD. PANCYTOPENIA ALSO NOTED Past Medical History Cardiovascular: CHF, HTN CENTRAL NERVOUS SYSTEM: Other GI: GERD, Gastritis Heme/Onc: Anemia NOS Psych: Anxiety, Depression Musculoskeletal: Osteoarthritis Renal/: Chronic renal failure, Other Endocrine: Hyperparathyroidism Past Surgical History Past Surgical History: Cataract Removal, Total knee replacement, Other Family History Family History: Coronary Artery Disease Social History ALCOHOL: none Drugs: None Lives: with Family Current Problem List Problem List Problems Medical Problems: (1) Abdominal pain Status: Acute (2) Acute CHF Status: Acute (3) Chronic kidney disease with end stage renal failure on dialysis Status: Acute (4) Congestive heart failure Status: Acute (5) ESRD (end stage renal disease) Status: Chronic (6) Generalized weakness Status: Acute (7) Hyperkalemia Status: Acute (8) Hypertension Status: Chronic (9) Pulmonary edema Status: Acute (10) SOB (shortness of breath) Status: Acute Current Medications Current Medications Current Medications Albuterol Sulfate (Ventolin Neb Soln) 10 mg 1X ONCE CONT NEB Last administered on 06/26/19at 17:35; Start 06/26/19 at 17:30; Stop 06/26/19 at 17:31; Status DC Hydralazine HCl (Apresoline Inj) 10 mg PRN Q6HRS PRN IVP ELEVATED BP, SEE COMMENTS Last administered on 06/26/19at 18:31; Start 06/26/19 at 18:15 Amlodipine Besylate (Norvasc) 10 mg DAILY PO Last administered on 06/27/19at 08:32; Start 06/27/19 at 09:00 Aspirin (Ecotrin) 81 mg DAILYWBKFT PO Last administered on 06/27/19 08:30; Start 06/27/19 at 08:00 Vitamin D (Vitamin D3) 2,000 unit BID PO Last administered on 06/27/19 08:31; Start 06/26/19 at 21:00 Cinacalcet (Sensipar) 30 mg DAILYWLUN PO ; Start 06/27/19 at 12:00 Vitamin B Complex/ Vitamin C (Evelyn-Elsa) 1 tab DAILY PO Last administered on 06/27/19 08:30; Start 06/27/19 at 09:00 Acetaminophen/ Hydrocodone Bitart (Lortab 5/325) 1 tab PRN Q4HRS PRN PO PAIN; Start 06/26/19 at 19:15 Isosorbide Mononitrate (Imdur) 30 mg DAILY08 PO Last administered on 06/27/19 08:31; Start 06/27/19 at 08:00 Latanoprost (Xalatan) 1 drop QHS OU Last administered on 06/26/19 22:25; Start 06/26/19 at 21:00 Pantoprazole Sodium (Protonix) 40 mg DAILY PO Last administered on 06/27/19 08:31; Start 06/27/19 at 09:00 Sevelamer Carbonate (Renvela) 1,600 mg TIDWMEALS PO Last administered on 06/27/19 08:31; Start 06/27/19 at 08:00 Zolpidem Tartrate (Ambien) 5 mg PRN QHS PRN PO INSOMNIA Last administered on 06/26/19 23:32; Start 06/26/19 at 19:15 Brimonidine Tartrate (Alphagan) 1 drop BID OU Last administered on 06/27/19 08:34; Start 06/26/19 at 21:00 Fluticasone Propionate (Flonase) 2 spray DAILY NS Last administered on 06/27/19 08:33; Start 06/27/19 at 09:00 Timolol Maleate (Timoptic 0.5% Ophth) 1 drop BID OU Last administered on 06/27/19 08:34; Start 06/26/19 at 21:00 Acetaminophen (Tylenol) 325 mg QID PO Last administered on 06/27/19 08:31; Start 06/26/19 at 21:00 Hydralazine HCl (Apresoline) 50 mg BID PO Last administered on 06/27/19at 08:32; Start 06/26/19 at 21:00 Lisinopril (Prinivil) 20 mg BID PO Last administered on 06/27/19at 08:32; Start 06/26/19 at 21:00 Metoclopramide HCl (Reglan) 2.5 mg QID PO Last administered on 06/27/19at 08:33; Start 06/26/19 at 21:00 Sucralfate (Carafate) 1 gm TIDAC PO Last administered on 06/27/19at 07:13; Start 06/27/19 at 07:30 Ondansetron HCl (Zofran Odt) 4 mg PRN Q8HRS PRN PO NAUSEA/VOMITING; Start 06/26/19 at 21:00 Heparin Sodium (Porcine) (Heparin Sodium) 5,000 unit Q12HR SQ Last administered on 06/27/19at 08:46; Start 06/26/19 at 21:00 Sodium Chloride 1,000 ml @ 1,000 mls/hr Q1H PRN IV hypotension; Start 06/27/19 at 08:23; Stop 06/27/19 at 14:22 Albumin Human 200 ml @ 200 mls/hr 1X PRN PRN IV Hypotension; Start 06/27/19 at 08:30; Stop 06/27/19 at 14:29 Sodium Chloride 1,000 ml @ 400 mls/hr Q2H30M PRN IV PATENCY; Start 06/27/19 at 08:23; Stop 06/27/19 at 20:22 Info (PHARMACY MONITORING -- do not chart) 1 each PRN DAILY PRN MC SEE COMMENTS; Start 06/27/19 at 08:30; Status UNV Info (PHARMACY MONITORING -- do not chart) 1 each PRN DAILY PRN MC SEE COMMENTS; Start 06/27/19 at 08:30 Albuterol/ Ipratropium (Duoneb) 3 ml 1X ONCE NEB ; Start 06/27/19 at 11:00; Stop 06/27/19 at 11:01 Albuterol/ Ipratropium (Duoneb) 3 ml RTQID NEB ; Start 06/27/19 at 16:00 Active Scripts Active Reglan (Metoclopramide Hcl) 10 Mg Tablet 1 Tab PO QID Isosorbide Mononitrate Er (Isosorbide Mononitrate) 30 Mg Tab.er.24h 30 Mg PO DAILY08 30 Days Aspirin Ec (Aspirin) 81 Mg Tablet.dr 81 Mg PO DAILYWBKFT 30 Days Hydralazine Hcl 50 Mg Tablet 50 Mg PO BID 30 Days Amlodipine Besylate 10 Mg Tablet 10 Mg PO DAILY 30 Days Lisinopril 20 Mg Tablet 1 Tab PO BID 30 Days Zofran (Ondansetron Hcl) 4 Mg Tablet 1 Tab PO Q6HRS Reported Combigan Eye Drops (Brimonidine Tartrate/Timolol) 5 Ml Drops 5 Ml OP BID Hydrocodone-Acetamin 5-325 mg (Hydrocodone/Acetaminophen) 1 Each Tablet 1 Each PO PRN Q4HRS PRN Vitamin D3 (Cholecalciferol (Vitamin D3)) 1,000 Unit Tablet 2 Tab PO BID Tylenol (Acetaminophen) 325 Mg Tablet 1-2 Tab PO QID Zolpidem Tartrate 5 Mg Tablet 5 Mg PO PRN QHS PRN Latanoprost 2.5 Ml Drops 1 Drop EACHEYE QHS Pantoprazole Sodium (Pantoprazole Sodium) 40 Mg Tablet. 40 Mg PO DAILY Sensipar (Cinacalcet Hcl) 30 Mg Tablet 30 Mg PO DAILYWLUN Renvela (Sevelamer Carbonate) 800 Mg Tablet 1,600 Mg PO TIDWMEALS Nephro-Elsa Tablet (Folic Acid/Vitamin B Comp W-C) 0.8 Mg Tablet 1 Tab PO DAILY Nasonex (Mometasone Furoate) 17 Gm Deputy.pump 2 Sprays NS DAILY Carafate (Sucralfate) 1 Gm Tablet 1 Gm PO TIDAC Allergies Allergies: Coded Allergies: chlorhexidine (Verified Allergy, Intermediate, Rash, 09/01/18) Opioids - Morphine Analogues (Verified Adverse Reaction, Intermediate, Nausea and Vomiting, 09/01/18) Opioids-Meperidine and Related (Verified Adverse Reaction, Intermediate, Nausea and Vomiting, 09/01/18) Opioids-Methadone and Related (Verified Adverse Reaction, Intermediate, Nausea and Vomiting, 09/01/18) codeine (Verified Adverse Reaction, Intermediate, Nausea and Vomiting, 09/01/18) ROS General: YES: Fatigue, Malaise PSYCHOLOGICAL ROS: YES: Anxiety, Depression HEENT: YES: Heacaches Respiratory: YES: Cough, Orthopnea, Shortness of breath Cardiovascular: yes Paroxysmal Noc. Dyspnea, yes Lt Headedness Gastrointestinal: Yes Nausea, Yes Vomiting, Yes Diarrhea Genitourinary: YES Other (ANURIA) Musculoskeletal: Yes Muscular Weakness Neurological: Yes Weakness Skin: Yes Dry Skin Physical Exam General: Alert, Oriented X3, Cooperative, mild distress HEENT: Atraumatic, PERRLA Lungs: Clear to auscultation, Other (BASILAR RALES) Heart: Regular rate, Normal S1, Normal S2 Abdomen: Normal bowel sounds, Soft, No tenderness Extremities: No clubbing Skin: No breakdown Neuro: Normal speech, Sensation intact Psych/Mental Status: Mental status NL, Mood NL MUSCULOSKELETAL: No joint tenderness, No deformity, No swelling Vitals VITALS Vital Signs Date Time Temp Pulse Resp B/P (MAP) Pulse Ox O2 Delivery O2 Flow Rate FiO2 06/27/19 10:39 55 108/57 (74) 06/27/19 08:00 Nasal Cannula 2.0 06/27/19 07:00 97.0 18 100 97.0 Labs Labs Laboratory Tests Test 06/26/19 15:55 White Blood Count 3.4 x10^3/uL (4.0-11.0) Red Blood Count 3.25 x10^6/uL (3.50-5.40) Hemoglobin 10.6 g/dL (12.0-15.5) Hematocrit 32.1 % (36.0-47.0) Mean Corpuscular Volume 99 fL (79-100) Mean Corpuscular Hemoglobin 33 pg (25-35) Mean Corpuscular Hemoglobin Concent 33 g/dL (31-37) Red Cell Distribution Width 14.9 % (11.5-14.5) Platelet Count 111 x10^3/uL (140-400) Neutrophils (%) (Auto) 68 % (31-73) Lymphocytes (%) (Auto) 21 % (24-48) Monocytes (%) (Auto) 7 % (0-9) Eosinophils (%) (Auto) 5 % (0-3) Basophils (%) (Auto) 1 % (0-3) Neutrophils # (Auto) 2.3 x10^3/uL (1.8-7.7) Lymphocytes # (Auto) 0.7 x10^3/uL (1.0-4.8) Monocytes # (Auto) 0.2 x10^3/uL (0.0-1.1) Eosinophils # (Auto) 0.2 x10^3/uL (0.0-0.7) Basophils # (Auto) 0.0 x10^3/uL (0.0-0.2) Sodium Level 144 mmol/L (136-145) Potassium Level 5.3 mmol/L (3.5-5.1) Chloride Level 108 mmol/L (98-107) Carbon Dioxide Level 21 mmol/L (21-32) Anion Gap 15 (6-14) Blood Urea Nitrogen 61 mg/dL (7-20) Creatinine 7.1 mg/dL (0.6-1.0) Estimated GFR (Cockcroft-Gault) 6.9 BUN/Creatinine Ratio 9 (6-20) Glucose Level 78 mg/dL (70-99) Lactic Acid Level 0.9 mmol/L (0.4-2.0) Calcium Level 8.0 mg/dL (8.5-10.1) Total Bilirubin 0.4 mg/dL (0.2-1.0) Aspartate Amino Transf (AST/SGOT) 16 U/L (15-37) Alanine Aminotransferase (ALT/SGPT) 8 U/L (14-59) Alkaline Phosphatase 174 U/L (46-116) Creatine Kinase 67 U/L (26-192) Troponin I Quantitative < 0.017 ng/mL (0.000-0.055) HM-Vex-L-Type Natriuretic Peptide 98269 pg/mL (0-124) Total Protein 7.5 g/dL (6.4-8.2) Albumin 3.7 g/dL (3.4-5.0) Albumin/Globulin Ratio 1.0 (1.0-1.7) Laboratory Tests Test 06/26/19 15:55 White Blood Count 3.4 x10^3/uL (4.0-11.0) Red Blood Count 3.25 x10^6/uL (3.50-5.40) Hemoglobin 10.6 g/dL (12.0-15.5) Hematocrit 32.1 % (36.0-47.0) Mean Corpuscular Volume 99 fL (79-100) Mean Corpuscular Hemoglobin 33 pg (25-35) Mean Corpuscular Hemoglobin Concent 33 g/dL (31-37) Red Cell Distribution Width 14.9 % (11.5-14.5) Platelet Count 111 x10^3/uL (140-400) Neutrophils (%) (Auto) 68 % (31-73) Lymphocytes (%) (Auto) 21 % (24-48) Monocytes (%) (Auto) 7 % (0-9) Eosinophils (%) (Auto) 5 % (0-3) Basophils (%) (Auto) 1 % (0-3) Neutrophils # (Auto) 2.3 x10^3/uL (1.8-7.7) Lymphocytes # (Auto) 0.7 x10^3/uL (1.0-4.8) Monocytes # (Auto) 0.2 x10^3/uL (0.0-1.1) Eosinophils # (Auto) 0.2 x10^3/uL (0.0-0.7) Basophils # (Auto) 0.0 x10^3/uL (0.0-0.2) Sodium Level 144 mmol/L (136-145) Potassium Level 5.3 mmol/L (3.5-5.1) Chloride Level 108 mmol/L (98-107) Carbon Dioxide Level 21 mmol/L (21-32) Anion Gap 15 (6-14) Blood Urea Nitrogen 61 mg/dL (7-20) Creatinine 7.1 mg/dL (0.6-1.0) Estimated GFR (Cockcroft-Gault) 6.9 BUN/Creatinine Ratio 9 (6-20) Glucose Level 78 mg/dL (70-99) Lactic Acid Level 0.9 mmol/L (0.4-2.0) Calcium Level 8.0 mg/dL (8.5-10.1) Total Bilirubin 0.4 mg/dL (0.2-1.0) Aspartate Amino Transf (AST/SGOT) 16 U/L (15-37) Alanine Aminotransferase (ALT/SGPT) 8 U/L (14-59) Alkaline Phosphatase 174 U/L (46-116) Creatine Kinase 67 U/L (26-192) Troponin I Quantitative < 0.017 ng/mL (0.000-0.055) FF-Exb-W-Type Natriuretic Peptide 63185 pg/mL (0-124) Total Protein 7.5 g/dL (6.4-8.2) Albumin 3.7 g/dL (3.4-5.0) Albumin/Globulin Ratio 1.0 (1.0-1.7) Assessment/Plan Assessment/Plan IMP HYPERKALEMIA CHF-ACUTE DIASTOLIC DECONDITIONING RECENT GASTROENTERITIS-RESOLVED ANEMIA HTN HX PANCYTOPENIA PLAN HD TODAY UF TO DW START LOTUS CONSIDER HEME EVAL WILL FOLLOW MARIFER METZ MD Jun 27, 2019 10:54
[2019-06-27] MEDS ORDERED: IPRATRPIUM/ALBUTEROL 0.5/2.5MG 3 ML NEBU. NEB ONE (11:00)
[2019-06-27] MEDS: CINACALCET HCL 30 MG TABLET PO SCH (12:00)
--- NOTE | 2019-06-27 12:41 | NUR ---
SS following for discharge planning. SS reviewed pt chart. Pt is from home with family and is currently requiring oxygen. Pt has dialysis in the community [facility], [facility], [facility]. PT/OT ordered. OT recommending longterm unit at this time. retail planner to meet with pt to discuss longterm unit and options. SS will continue to follow for discharge planning.
--- NOTE | 2019-06-27 14:40 | PDOC2 ---
BRIAN MEDINA BOILER FIREMAN 06/27/19 1440: CARDIAC CONSULT DATE OF CONSULT Date of Consult DATE: 06/27/19 TIME: 14:32 REASON FOR CONSULT Reason for Consult: CHF REFERRING PHYSICIAN Referring Physician: Dr. Bunch SOURCE Source: Chart review, Patient HISTORY OF PRESENT ILLNESS HISTORY OF PRESENT ILLNESS This is a 73 yo female who presented secondary to shortness of breath. Patient reports having nausea/vomiting/diarrhea on this past Thursday. Was not able to go the dialysis. On , she developed shortness of breath, especially with exertion. Dialysis center was able to fit her into the scheduled to make up Thursday. She was also dialyzed Thursday on her usual day. They were unable to pull off any fluid due to hypotension. Per dialysis nurse, patient is 8kg over her dry weight. Goal of 4 kg removal today. Patient denies any chest pain, palpitations, dizziness, diaphoresis, or LE edema. Is unable to lay flat at baseline. PAST MEDICAL HISTORY Past Medical History Cardiovascular: HTN, CHF, Mild Pulmonary: Moderate pulmonary HTN CENTRAL NERVOUS SYSTEM: Other (no pertinent hx) GI: GERD Heme/Onc: Anemia NOS Hepatobiliary: cholelithiasis Psych: Anxiety, Depression Musculoskeletal: Osteoarthritis Rheumatologic: No pertinent hx Infectious disease: No pertinent hx ENT: No pertinent hx Renal/: ESRD (on HD), Other (anuric), renal mass Endocrine: Diabetes Dermatology: No pertinent hx PAST SURGICAL HISTORY Past Surgical History Cataract Removal, Other (Right knee replacement, RUE fistula, breast biopsy, carpal tunnel sx), [facility] 07/2017 FAMILY HISTORY Family History: Coronary Artery Disease SOCIAL HISTORY Social History Smoke: No ALCOHOL: none Drugs: None Lives: with Family CURRENT MEDICATIONS CURRENT MEDICATIONS Current Medications Medications (Trade) Dose Ordered Sig/Any Route PRN Reason Start Time Stop Time Status Last Admin Dose Admin Albuterol Sulfate (Ventolin Neb Soln) 10 mg 1X ONCE CONT NEB 06/26/19 17:30 06/26/19 17:31 DC 06/26/19 17:35 Hydralazine HCl (Apresoline Inj) 10 mg PRN Q6HRS PRN IVP ELEVATED BP, SEE COMMENTS 06/26/19 18:15 06/26/19 18:31 Amlodipine Besylate (Norvasc) 10 mg DAILY PO 06/27/19 09:00 06/27/19 08:32 Aspirin (Ecotrin) 81 mg DAILYWBKFT PO 06/27/19 08:00 06/27/19 08:30 Vitamin D (Vitamin D3) 2,000 unit BID PO 06/26/19 21:00 06/27/19 08:31 Vitamin B Complex/ Vitamin C (Evelyn-Elsa) 1 tab DAILY PO 06/27/19 09:00 06/27/19 08:30 Isosorbide Mononitrate (Imdur) 30 mg DAILY08 PO 06/27/19 08:00 06/27/19 08:31 Latanoprost (Xalatan) 1 drop QHS OU 06/26/19 21:00 06/26/19 22:25 Pantoprazole Sodium (Protonix) 40 mg DAILY PO 06/27/19 09:00 06/27/19 08:31 Sevelamer Carbonate (Renvela) 1,600 mg TIDWMEALS PO 06/27/19 08:00 06/27/19 08:31 Zolpidem Tartrate (Ambien) 5 mg PRN QHS PRN PO INSOMNIA 06/26/19 19:15 06/26/19 23:32 Brimonidine Tartrate (Alphagan) 1 drop BID OU 06/26/19 21:00 06/27/19 08:34 Fluticasone Propionate (Flonase) 2 spray DAILY NS 06/27/19 09:00 06/27/19 08:33 Timolol Maleate (Timoptic 0.5% Ophth) 1 drop BID OU 06/26/19 21:00 06/27/19 08:34 Acetaminophen (Tylenol) 325 mg QID PO 06/26/19 21:00 06/27/19 08:31 Hydralazine HCl (Apresoline) 50 mg BID PO 06/26/19 21:00 06/27/19 08:32 Lisinopril (Prinivil) 20 mg BID PO 06/26/19 21:00 06/27/19 08:32 Metoclopramide HCl (Reglan) 2.5 mg QID PO 06/26/19 21:00 06/27/19 08:33 Sucralfate (Carafate) 1 gm TIDAC PO 06/27/19 07:30 06/27/19 07:13 Heparin Sodium (Porcine) (Heparin Sodium) 5,000 unit Q12HR SQ 06/26/19 21:00 06/27/19 08:46 Albuterol/ Ipratropium (Duoneb) 3 ml 1X ONCE NEB 06/27/19 11:00 06/27/19 11:01 DC 06/27/19 12:28 ALLERGIES ALLERGIES: Coded Allergies: chlorhexidine (Verified Allergy, Intermediate, Rash, 09/01/18) Opioids - Morphine Analogues (Verified Adverse Reaction, Intermediate, Nausea and Vomiting, 09/01/18) Opioids-Meperidine and Related (Verified Adverse Reaction, Intermediate, Nausea and Vomiting, 09/01/18) Opioids-Methadone and Related (Verified Adverse Reaction, Intermediate, Nausea and Vomiting, 09/01/18) codeine (Verified Adverse Reaction, Intermediate, Nausea and Vomiting, 09/01/18) ROS Review of System 14 point ROS conducted with pertinent positives noted above in HPI. PHYSICAL EXAM PHYSICAL EXAM General: Alert, Oriented X3, Cooperative, No acute distress Lungs: bibasilar crackles Heart: Regular rate (SR), Normal S1, Normal S2, Other (3/6 systolic murmur to ARMIN border) Abdomen: Soft, No tenderness Extremities: No cyanosis, No edema Skin: No breakdown, No significant lesion Neuro: Normal speech, Sensation intact Psych/Mental Status: Mental status NL, Mood NL MUSCULOSKELETAL: Osteoarthritic changes both hands VITALS/I&O VITALS/I&O: Vital Signs Date Time Temp Pulse Resp B/P (MAP) Pulse Ox O2 Delivery O2 Flow Rate FiO2 06/27/19 12:28 98 Nasal Cannula 2.0 06/27/19 10:39 55 108/57 (74) 06/27/19 07:00 97.0 18 97.0 I & O 0 06/26/19 06/26/19 06/27/19 15:00 23:00 07:00 Intake Total 300 ml Balance 300 ml LABS Lab: Laboratory Tests Test 06/26/19 15:55 White Blood Count 3.4 x10^3/uL (4.0-11.0) L Red Blood Count 3.25 x10^6/uL (3.50-5.40) L Hemoglobin 10.6 g/dL (12.0-15.5) L Hematocrit 32.1 % (36.0-47.0) L Mean Corpuscular Volume 99 fL (79-100) Mean Corpuscular Hemoglobin 33 pg (25-35) Mean Corpuscular Hemoglobin Concent 33 g/dL (31-37) Red Cell Distribution Width 14.9 % (11.5-14.5) H Platelet Count 111 x10^3/uL (140-400) L Neutrophils (%) (Auto) 68 % (31-73) Lymphocytes (%) (Auto) 21 % (24-48) L Monocytes (%) (Auto) 7 % (0-9) Eosinophils (%) (Auto) 5 % (0-3) H Basophils (%) (Auto) 1 % (0-3) Neutrophils # (Auto) 2.3 x10^3/uL (1.8-7.7) Lymphocytes # (Auto) 0.7 x10^3/uL (1.0-4.8) L Monocytes # (Auto) 0.2 x10^3/uL (0.0-1.1) Eosinophils # (Auto) 0.2 x10^3/uL (0.0-0.7) Basophils # (Auto) 0.0 x10^3/uL (0.0-0.2) Sodium Level 144 mmol/L (136-145) Potassium Level 5.3 mmol/L (3.5-5.1) H Chloride Level 108 mmol/L (98-107) H Carbon Dioxide Level 21 mmol/L (21-32) Anion Gap 15 (6-14) H Blood Urea Nitrogen 61 mg/dL (7-20) H Creatinine 7.1 mg/dL (0.6-1.0) H Estimated GFR (Cockcroft-Gault) 6.9 BUN/Creatinine Ratio 9 (6-20) Glucose Level 78 mg/dL (70-99) Lactic Acid Level 0.9 mmol/L (0.4-2.0) Calcium Level 8.0 mg/dL (8.5-10.1) L Total Bilirubin 0.4 mg/dL (0.2-1.0) Aspartate Amino Transferase (AST) 16 U/L (15-37) Alanine Aminotransferase (ALT) 8 U/L (14-59) L Alkaline Phosphatase 174 U/L (46-116) H Creatine Kinase 67 U/L (26-192) Troponin I Quantitative < 0.017 ng/mL (0.000-0.055) CA-Pgp-C-Type Natriuretic Peptide 18360 pg/mL (0-124) H Total Protein 7.5 g/dL (6.4-8.2) Albumin 3.7 g/dL (3.4-5.0) Albumin/Globulin Ratio 1.0 (1.0-1.7) Laboratory Tests 06/26/19 15:55 Laboratory Tests 06/26/19 15:55 ECHOCARDIOGRAM ECHOCARDIOGRAM <Conclusion> The Ejection Fraction is 55%. There is normal LV segmental wall motion. There is mild concentric left ventricular hypertrophy. Mild aortic stenosis. MG 16 mm Hg. Doppler and Color Flow revealed mild tricuspid regurgitation. There is moderate to severe pulmonary hypertension. The PA pressure was estimated at 71 mmHg. DATE: 08/04/17 1558 04/16/19 at LVEF=65% Severe Concentric LVH Severe Left Atrial Dilatation Mild RV Hypertrophy Severe Mitral Annular Calcification: P1/2=96msec, Mean Gradient=8mmHg At HR-67 bpm Mild-Moderate Aortic Stenosis, Trileaflet: Peak Velcoity=2.7m/sec, Mean Gradient=20mmHg Trace Pericardial Effusion PASP=51mmHg STRESS TEST STRESS TEST Conclusion 1. No evidence of stress induced EKG changes. 2. Subtle inferolateral perfusion defect suggestive of attenuation artifact with grossly normal regional wall motion. 3. EF 50%. 4. Low risk study. DATE: 02/06/16 0816 HEART CATH HEART CATH CORONARY ANGIOGRAPHY: LM is a large caliber vessel with normal angiographic appearance. LAD is a large caliber vessel with normal angiographic appearance. D1 is a moderate caliber vessel with normal angiographic apeparance. LCx is a moderate to large caliber non-dominant vessel with normal angiographic appearance. OM1 is a moderate to large caliber vessel with normal angiographic appearance. RCA is a large caliber dominant vessel with normal angiographic appearance. RPDA and RPL are moderate caliber vessels with normal angiographic appearance. At case completion, the right arterial sheath was removed and hemostasis was achieved with an Angioseal Device, the right venous sheath was removed with manual compression. The patient tolerated the procedure well and there were no complications. Conclusion 1. Normal biventricular filling pressures. 2. Mild pulmonary HTN. 3. No significant coronary artery disease. 4. Normal LV function. EF > 70% Recommendations Aggressive Medical Therapy DATE: 08/04/17 1339 ASSESSMENT/PLAN ASSESSMENT/PLAN 1. Acute on chronic diastolic CHF; multifactorial with recent viral illness, hypertension, valvular disease, and inability to pull off extra fluid in HD. Is 8 kg over dry weight. Recent echo with preserved LF systolic function 2. Hypertension; better controlled 3. Hyperlipidemia 4. Bradycardia; sinus during HD. known h/o sinus bradycardia 5. ESRD on HD 6. Hyperkalemia 7. Pancytopenia, chronic 8. Valvular disease; severe mitral calcification and mild-moderate aortic stenosis. severe. LVH Recommendations Fluid offloading via HD BP control. Continue imdur, hydralazine, and lisinopril- titrate as warranted Avoid AV estefany blocking agents Supportive care ARELY JARAMILLO MD 06/28/19 0944: CARDIAC CONSULT ASSESSMENT/PLAN ASSESSMENT/PLAN Late entry for 06/27/2019 Pt. seen and examined. Agree with above TRAFFIC WORKER note. Discussed with daughter at bedside She has had recurrent HF admissions due to volume overload If BP low on HD days, may need to hold hydralazine on her HD days to be able to pull more fluid off. Supportive care. No further CV testing needed. BRIAN MEDINA APRN Jun 27, 2019 14:40 ARELY JARAMILLO MD Jun 28, 2019 09:44
[2019-06-27] MEDS: IPRATRPIUM/ALBUTEROL 0.5/2.5MG 3 ML NEBU. NEB SCH ×2 (16:00→20:07)
--- NOTE | 2019-06-27 17:30 | HP ---
ADMIT DATE: 06/26/2019 LOCATION: 430. REASON FOR ADMISSION TO THE HOSPITAL: Shortness of breath, fluid overload, congestive heart failure, and diastolic heart failure. HISTORY OF PRESENT ILLNESS: The patient is a 73-year-old female. The patient has a history of hypertension, hyperlipidemia, and end-stage renal disease, on dialysis. She was not feeling well for a couple of days. She missed her dialysis. She goes Thursday, Thursday, and Thursday, but she went on and Thursday and yesterday she was having shortness of breath, cough, and no improvement, was brought to the hospital. She was in congestive heart failure and the patient was seen by Renal as well as Cardiology. She is scheduled for dialysis today. PAST MEDICAL HISTORY: She has a history of hypertension, diastolic heart failure, pulmonary hypertension, aortic stenosis, and mild renal failure, on dialysis. She used to be diabetic, but she is controlled now. PAST SURGICAL HISTORY: Cataract surgery, right knee replacement, fistula for AV shunt, breast biopsy, carpal tunnel, and cardiac catheterization in 2016. FAMILY HISTORY: Positive for heart disease and kidney problems. SOCIAL HISTORY: Denies smoking, alcohol, or drug abuse. ALLERGIES: MORPHINE, DEMEROL, METHADONE, CODEINE, AND CHLORHEXIDINE. MEDICATIONS AT HOME: Tylenol p.r.n., amlodipine 10 mg daily, aspirin 81 mg daily, Combigan eye drops for glaucoma twice a day both eyes, vitamin D daily 1000 units, Sensipar 30 mg daily, Nephro-Elsa 1 daily, hydralazine 50 mg twice a day, hydrocodone for pain q. 6 hours, isosorbide 30 mg daily, Latanoprost eye drops each eye at bedtime, lisinopril 20 mg twice a day, Reglan 10 mg 4 times a day, Nasonex nose drops, Zofran for nausea, Protonix 40 mg daily, Renvela 800 mg and takes 2 tablets 3 times a day, Carafate 1 gm 3 times a day at bedtime, and Ambien 5 mg daily. PERSONAL HISTORY: No smoking, alcohol, or drug abuse. REVIEW OF SYMPTOMS: She complains of cough and shortness of breath. Denies any chest pain. The patient feels bloated. Rest of the 14 systems were reviewed. PHYSICAL EXAMINATION: GENERAL: The patient is pleasant, not in any distress. VITAL SIGNS: Temperature 97.0, pulse 47, respirations 16, blood pressure 200/101, and saturation 96% on room air. HEENT: Head is atraumatic. Pupils equal. Oral cavity, no congestion. NECK: Supple. Thyroid not enlarged. JVD not elevated. CHEST: Symmetrical. CARDIOVASCULAR: S1, S2. Few crackles at the base. ABDOMEN: Soft. Bowel sounds are present. No mass palpable. EXTERNAL GENITALIA: No Holloway. RECTAL: Deferred. EXTREMITIES: No edema. No calf tenderness. The patient has AV shunt in right upper arm. NEUROLOGIC: Moving all extremities. No focal deficits noted. LABORATORY DATA: White count of 3.4, hemoglobin 10.6, and platelets 111. Electrolytes show sodium 144, potassium 5.3, chloride 108, bicarbonate 21, BUN 61, creatinine 7.1, lactic acid 0.9, and glucose 78. LFTs normal. BNP 30,000. Troponin was negative. She had a chest x-ray that showed CHF, bilateral pleural effusions, and interstitial pulmonary edema. EKG negative for ischemia. FINAL IMPRESSION: 1. Shortness of breath secondary to fluid overload. 2. Chronic diastolic heart failure. 3. End-stage renal disease, on hemodialysis. 4. Hypertension. 5. Hyperlipidemia. PLAN: At this time, admit to hospital. Get dialyzed while she is in the hospital. Cardiology consult. Echocardiogram for left ventricular function and see how she improves in the next 24-48 hours. YARY FAIRCHILD MD DR: SAM/kailee JOB#: [id number] / [id number]
[2019-06-27 19:00] VITALS: BP 138/57
[2019-06-27] MEDS ORDERED: DARBEPOETIN ALFA 60 MCG/0.3 ML DISP.SYRIN. SQ SCH (21:00)
[2019-06-27] MEDS: LATANOPROST 0.005% OPHTH SOLUTION 2.5ML BOTTLE. OU SCH (21:18)
[2019-06-27] MEDS: ZOLPIDEM 5 MG TABLET. PO PRN (21:20)
[2019-06-27 23:00] VITALS: BP 139/56
[2019-06-28 03:00] VITALS: BP 168/65
[2019-06-28] MEDS: SUCRALFATE 1 GM TABLET. PO SCH ×3 (06:20→17:01)
[2019-06-28 07:00] VITALS: BP 143/65
[2019-06-28 07:18] LABS: BASO % 1 % (0-3); EOS # 0.1 x10^3/uL (0.0-0.7); EOS % 3 % (0-3); HEMATOCRIT 32.4 % (36.0-47.0); HEMOGLOBIN 10.9 g/dL (12.0-15.5); LYMPH # 0.6 x10^3/uL (1.0-4.8); LYMPH % 15 % (24-48); MEAN CORPUSCULAR HEMOGLOBIN 32 pg (25-35); MEAN CORPUSCULAR HGB CONC 34 g/dL (31-37); MEAN CORPUSCULAR VOLUME 96 fL (79-100); MONO # 0.3 x10^3/uL (0.0-1.1); MONO % 7 % (0-9); NEUT # 3.1 x10^3/uL (1.8-7.7); NEUT % 75 % (31-73); PLATELET COUNT 135 x10^3/uL (140-400); RED BLOOD COUNT 3.38 x10^6/uL (3.50-5.40); RED CELL DISTRIBUTION WIDTH 15.2 % (11.5-14.5); WHITE BLOOD COUNT 4.2 x10^3/uL (4.0-11.0)
[2019-06-28 07:20] LABS: CALCIUM 8.4 mg/dL (8.5-10.1); CREATININE 5.4 mg/dL (0.6-1.0); GFR 9.4; POTASSIUM 4.1 mmol/L (3.5-5.1)
[2019-06-28] MEDS: IPRATRPIUM/ALBUTEROL 0.5/2.5MG 3 ML NEBU. NEB SCH ×4 (07:34→19:54)
[2019-06-28] MEDS: BRIMONIDINE 0.2% OPHTH SOLUTION 5ML BOTTLE. OU SCH ×2 (08:28→20:42)
[2019-06-28] MEDS: ASPIRIN ENTERIC COATED 81 MG TABLET.DR. PO SCH (08:28)
[2019-06-28] MEDS: FLUTICASONE 50MCG/NASAL SPRAY 16GM BOTTLE. NS SCH (08:28)
[2019-06-28] MEDS: TIMOLOL 0.5% OPHTH SOLUTION 5ML BOTTLE. OU SCH ×2 (08:28→20:42)
[2019-06-28] MEDS: PANTOPRAZOLE 40 MG TABLET.DR. PO SCH (08:29)
[2019-06-28] MEDS: SEVELAMER CARBONATE 800 MG TABLET. PO SCH ×3 (08:29→17:00)
[2019-06-28] MEDS: LISINOPRIL 20 MG TABLET PO SCH ×2 (08:29→20:45)
[2019-06-28] MEDS: CHOLECALCIFEROL (VITAMIN D3) 1,000 UNIT TABLET PO SCH ×2 (08:29→20:43)
[2019-06-28] MEDS: FOLIC/VIT B COMP W-C (RENAL) TABLET. PO SCH (08:29)
[2019-06-28] MEDS: ISOSORBIDE MONONITRATE ER 30 MG TAB.ER.24H PO SCH (08:30)
[2019-06-28] MEDS: amLODIPine BESYLATE 10 MG TABLET PO SCH (08:30)
[2019-06-28] MEDS: ACETAMINOPHEN 325 MG TABLET. PO SCH ×4 (08:30→20:43)
[2019-06-28] MEDS: METOCLOPRAMIDE 10 MG TABLET. PO SCH ×4 (08:31→20:43)
[2019-06-28] MEDS: HEPARIN for SUB-Q USE 5,000 UNIT/ML VIAL. SQ SCH ×2 (08:43→20:57)
--- NOTE | 2019-06-28 09:25 | PDOC ---
PROGRESS NOTES Subjective Subjective feels better today Objective Objective Vital Signs Date Time Temp Pulse Resp B/P (MAP) Pulse Ox O2 Delivery O2 Flow Rate FiO2 06/28/19 08:30 58 143/65 06/28/19 07:35 97 Room Air 06/28/19 07:00 97.6 18 2.0 97.6 l Intake and Output 06/28/19 06:59 Intake Total 820 ml Balance 820 ml Intake Oral 820 ml # Voids 2 # Bowel Movements 1 Physical Exam Abdomen: Normal bowel sounds, Soft, No tenderness Heart: Regular rate, Normal S1, Normal S2 Extremities: No clubbing General: Alert, Oriented X3, Cooperative, mild distress HEENT: Atraumatic, PERRLA Lungs: Clear to auscultation, Other (BASILAR RALES) MUSCULOSKELETAL: No joint tenderness, No deformity, No swelling Neuro: Normal speech, Sensation intact Psych/Mental Status: Mental status NL, Mood NL Skin: No breakdown Diagnosis Problem List Problems Medical Problems: (1) Abdominal pain Status: Acute (2) Acute CHF Status: Acute (3) Chronic kidney disease with end stage renal failure on dialysis Status: Acute (4) Congestive heart failure Status: Acute (5) ESRD (end stage renal disease) Status: Chronic (6) Generalized weakness Status: Acute (7) Hyperkalemia Status: Acute (8) Hypertension Status: Chronic (9) Pulmonary edema Status: Acute (10) SOB (shortness of breath) Status: Acute Assessment Assessment Problems Medical Problems: (1) Abdominal pain Status: Acute (2) Acute CHF Status: Acute (3) Chronic kidney disease with end stage renal failure on dialysis Status: Acute (4) Congestive heart failure Status: Acute (5) ESRD (end stage renal disease) Status: Chronic (6) Generalized weakness Status: Acute (7) Hyperkalemia Status: Acute (8) Hypertension Status: Chronic (9) Pulmonary edema Status: Acute (10) SOB (shortness of breath) Status: Acute FINAL IMPRESSION: 1. Shortness of breath secondary to fluid overload. 2. Chronic diastolic heart failure. 3. End-stage renal disease, on hemodialysis. 4. Hypertension. 5. Hyperlipidemia. PLAN: clinically improving Pt was dialized yesterday cxr today echo today. labs good . dialysis tomorrow d/c home after that. At this time, admit to hospital. Get dialyzed while she is in the hospital. Cardiology consult. Echocardiogram for left ventricular function and see how she improves in the next 24-48 hours. Plan Plan of Care Problems Medical Problems: (1) Abdominal pain Status: Acute (2) Acute CHF Status: Acute (3) Chronic kidney disease with end stage renal failure on dialysis Status: Acute (4) Congestive heart failure Status: Acute (5) ESRD (end stage renal disease) Status: Chronic (6) Generalized weakness Status: Acute (7) Hyperkalemia Status: Acute (8) Hypertension Status: Chronic (9) Pulmonary edema Status: Acute (10) SOB (shortness of breath) Status: Acute Comment Review of Relevant I have reviewed the following items dorina (where applicable) has been applied. Labs Laboratory Tests Test 06/28/19 06:20 White Blood Count 4.2 x10^3/uL (4.0-11.0) Red Blood Count 3.38 x10^6/uL (3.50-5.40) Hemoglobin 10.9 g/dL (12.0-15.5) Hematocrit 32.4 % (36.0-47.0) Mean Corpuscular Volume 96 fL (79-100) Mean Corpuscular Hemoglobin 32 pg (25-35) Mean Corpuscular Hemoglobin Concent 34 g/dL (31-37) Red Cell Distribution Width 15.2 % (11.5-14.5) Platelet Count 135 x10^3/uL (140-400) Neutrophils (%) (Auto) 75 % (31-73) Lymphocytes (%) (Auto) 15 % (24-48) Monocytes (%) (Auto) 7 % (0-9) Eosinophils (%) (Auto) 3 % (0-3) Basophils (%) (Auto) 1 % (0-3) Neutrophils # (Auto) 3.1 x10^3/uL (1.8-7.7) Lymphocytes # (Auto) 0.6 x10^3/uL (1.0-4.8) Monocytes # (Auto) 0.3 x10^3/uL (0.0-1.1) Eosinophils # (Auto) 0.1 x10^3/uL (0.0-0.7) Basophils # (Auto) 0.0 x10^3/uL (0.0-0.2) Sodium Level 141 mmol/L (136-145) Potassium Level 4.1 mmol/L (3.5-5.1) Chloride Level 102 mmol/L (98-107) Carbon Dioxide Level 27 mmol/L (21-32) Anion Gap 12 (6-14) Blood Urea Nitrogen 38 mg/dL (7-20) Creatinine 5.4 mg/dL (0.6-1.0) Estimated GFR (Cockcroft-Gault) 9.4 Glucose Level 85 mg/dL (70-99) Calcium Level 8.4 mg/dL (8.5-10.1) Medications Current Medications Albuterol/ Ipratropium (Duoneb) 3 ml 1X ONCE NEB Last administered on at 12:28; Start 06/27/19 at 11:00; Stop 06/27/19 at 11:01; Status DC Albuterol/ Ipratropium (Duoneb) 3 ml RTQID NEB Last administered on 06/28/19at 07:34; Start 06/27/19 at 16:00 Cinacalcet (Sensipar) 30 mg DAILYWLUN PO ; Start 06/27/19 at 12:00 Darbepoetin Narciso (ARANESP for DIALYSIS PTS) 60 mcg WEEKLYHS SQ Last administered on 06/27/19at 21:19; Start 06/27/19 at 21:00 Vitals/I & O Vital Sign - Last 24 Hours 06/27/19 06/27/19 06/27/19 06/27/19 10:39 12:28 16:30 19:00 Temp 98.0 98.0 Pulse 55 65 Resp 18 B/P (MAP) 108/57 (74) 138/57 (84) Pulse Ox 98 98 O2 Delivery Nasal Cannula Nasal Cannula Nasal Cannula O2 Flow Rate 2.0 2.0 2.0 06/27/19 06/27/19 06/27/19 06/27/19 19:30 20:09 21:20 21:20 Pulse 57 57 B/P (MAP) 147/63 147/63 Pulse Ox 98 O2 Delivery Nasal Cannula Nasal Cannula O2 Flow Rate 2.0 1.0 06/27/19 06/28/19 06/28/19 06/28/19 23:00 03:00 07:00 07:35 Temp 98.0 97.8 97.6 98.0 97.8 97.6 Pulse 62 63 58 Resp 18 18 18 B/P (MAP) 139/56 (83) 168/65 (99) 143/65 (91) Pulse Ox 98 97 97 97 O2 Delivery Nasal Cannula Nasal Cannula Nasal Cannula Room Air O2 Flow Rate 2.0 2.0 2.0 06/28/19 06/28/19 06/28/19 06/28/19 08:29 08:30 08:30 08:30 Pulse 58 58 58 58 B/P (MAP) 143/65 143/65 143/65 143/65 Intake and Output 06/27/19 06/27/19 06/28/19 14:59 22:59 06:59 Intake Total 300 ml 420 ml 100 ml Balance 300 ml 420 ml 100 ml YARY FAIRCHILD MD Jun 28, 2019 09:25
--- NOTE | 2019-06-28 10:56 | PDOC ---
Renal-Progress Notes Subjective Notes Notes LESS SOB History of Present Illness Hx of present illness STABLE Vitals Vitals Vital Signs Date Time Temp Pulse Resp B/P (MAP) Pulse Ox O2 Delivery O2 Flow Rate FiO2 06/28/19 08:30 58 143/65 06/28/19 07:35 97 Room Air 06/28/19 07:00 97.6 18 2.0 97.6 Weight Weight [ ] I.O. Intake and Output Intake and Output 06/28/19 06:59 Intake Total 820 ml Balance 820 ml Intake Oral 820 ml # Voids 2 # Bowel Movements 1 Labs Labs Laboratory Tests Test 06/28/19 06:20 White Blood Count 4.2 x10^3/uL (4.0-11.0) Red Blood Count 3.38 x10^6/uL (3.50-5.40) Hemoglobin 10.9 g/dL (12.0-15.5) Hematocrit 32.4 % (36.0-47.0) Mean Corpuscular Volume 96 fL (79-100) Mean Corpuscular Hemoglobin 32 pg (25-35) Mean Corpuscular Hemoglobin Concent 34 g/dL (31-37) Red Cell Distribution Width 15.2 % (11.5-14.5) Platelet Count 135 x10^3/uL (140-400) Neutrophils (%) (Auto) 75 % (31-73) Lymphocytes (%) (Auto) 15 % (24-48) Monocytes (%) (Auto) 7 % (0-9) Eosinophils (%) (Auto) 3 % (0-3) Basophils (%) (Auto) 1 % (0-3) Neutrophils # (Auto) 3.1 x10^3/uL (1.8-7.7) Lymphocytes # (Auto) 0.6 x10^3/uL (1.0-4.8) Monocytes # (Auto) 0.3 x10^3/uL (0.0-1.1) Eosinophils # (Auto) 0.1 x10^3/uL (0.0-0.7) Basophils # (Auto) 0.0 x10^3/uL (0.0-0.2) Sodium Level 141 mmol/L (136-145) Potassium Level 4.1 mmol/L (3.5-5.1) Chloride Level 102 mmol/L (98-107) Carbon Dioxide Level 27 mmol/L (21-32) Anion Gap 12 (6-14) Blood Urea Nitrogen 38 mg/dL (7-20) Creatinine 5.4 mg/dL (0.6-1.0) Estimated GFR (Cockcroft-Gault) 9.4 Glucose Level 85 mg/dL (70-99) Calcium Level 8.4 mg/dL (8.5-10.1) Review of Systems Constitutional: yes: weakness, alert Ears/Nose/Throat: Yes: no symptom reported Eyes: Yes: no symptom reported Pulmonary: Yes dyspnea Cardiovascular: Yes no symptom reported Gastrointestional: Yes: constipation Genitourinary: Yes: no symptom reported Musculoskeletal: Yes: muscle stiffness Skin: Yes no symptom reported Psychiatric/Neurological: Yes: no symptom reported Endocrine: Yes: no symptom reported Physical Exam General Appearance: no apparent distress, febrile Skin: warm Respiratory: decreased breath sounds Heart: S1S2 Abdomen: soft, bowel sounds present Genitourinary: bladder flat Extremities: pulses present Neurology: alert, oriented Assessment Assessment IMP HYPERKALEMIA-RESOLVED CHF-ACUTE DIASTOLIC DECONDITIONING RECENT GASTROENTERITIS-RESOLVED ANEMIA HTN HX PANCYTOPENIA DYSPNEA-? PULM HTN PLAN HD TOMORROW START LOTUS CONSIDER HEME EVAL WILL FOLLOW MARIFER METZ MD Jun 28, 2019 10:55
[2019-06-28 11:00] VITALS: BP 101/56
[2019-06-28] MEDS: CINACALCET HCL 30 MG TABLET PO SCH (11:56)
--- NOTE | 2019-06-28 12:20 | NUR ---
SS following up with discharge planning. direct sales representative met with pt to discuss home healthcare services. Pt reported that she has been previously on services with [facility], ; fax [phone], and would like to return to home with [facility]. SS will continue to follow for discharge planning.
--- NOTE | 2019-06-28 15:41 | CARD ---
MR#: [id number] Date of Study: 06/28/2019 Ordering Physician: YARY FAIRCHILD, Referring Physician: YARY FAIRCHILD Tech: Socorro Acuña GALLO APPROVED REPORT EXAM: Two-dimensional and M-mode echocardiogram with Doppler and color Doppler. Other Information Quality : Technically LimitedHR: 64bpm Rhythm : OtherTechnically limited study due to pt unable to lay flat due to breathing. INDICATION Congestive Heart Failure 2D DIMENSIONS RVDd3.6 (2.9-3.5cm)Left Atrium(2D)3.7 (1.6-4.0cm) IVSd1.4 (0.7-1.1cm)Aortic Root(2D)3.1 (2.0-3.7cm) LVDd4.7 (3.9-5.9cm)LVOT Diameter2.1 (1.8-2.4cm) PWd1.3 (0.7-1.1cm)LVDs3.4 (2.5-4.0cm) FS (%) 28.1 %SV55.4 ml LVEF(%)54.3 (>50%) M-Mode DIMENSIONS Left Atrium(MM)4.46 (2.5-4.0cm)Aortic Root2.95 (2.2-3.7cm) Aortic Valve AoV Peak Adelfo.344.3cm/sAoV VTI83.4cm AO Peak GR.47.4mmHgLVOT Peak Adelfo.89.1cm/s AO Mean GR.28mmHgAVA (VMAX)0.93cm2 NASRA (VTI)1.00cm2 Mitral Valve MV E Eqkfuiho103.6cm/sMV E Peak Gr.133mmHg MV DECEL [id number] A Ubczcugm570.2cm/s MV E Mean Gr.9mmHgE/A Ratio1.0 Pulmonary Valve PV Peak Tuyhkudq450.3cm/s Tricuspid Valve TR P. Ouctnmio930au/sRAP VGISODCK7ufDi TR Peak Gr.31jbKmYBFD70joHm LEFT VENTRICLE The left ventricle is normal size. There is severe concentric left ventricular hypertrophy. The left ventricular systolic function is normal and the ejection fraction is within normal range. The Ejectio n Fraction is 55-60%. There is normal LV segmental wall motion. Tissue Doppler imaging reveals modera te left ventricular diastolic dysfunction. RIGHT VENTRICLE The right ventricle is mildly dilated. There is normal right ventricular wall thickness. The right ve ntricular systolic function is normal. ATRIA The left atrium is mildly dilated. The right atrium is mildly dilated. The interatrial septum is inta ct with no evidence for an atrial septal defect or patent foramen ovale as noted on 2-D or Doppler im aging. AORTIC VALVE Heavily calcified valve with restricted leaflet motion. Doppler and Color Flow revealed no significan t aortic regurgitation. There is moderate valvular aortic stenosis. Calculated aortic valve area is 0 .9 cm2 with maximum pressure gradient of 47 mmHg and mean pressure gradient of 28 mmHg. There is no a ortic valvular vegetation. MITRAL VALVE Mitral annular calcification is moderate to severe. There is no evidence of mitral valve prolapse. Th ere is moderate mitral valve stenosis. Calculated mitral valve area is 1.0 cm2 with maximum pressure gradient of 22 mmHg and mean pressure gradient of 9 mmHg. Doppler and Color-flow revealed mild mitral regurgitation. TRICUSPID VALVE The tricuspid valve is normal in structure and function. Doppler and Color Flow revealed mild tricusp id regurgitation. There is moderate-severe pulmonary hypertension. The PA pressure was estimated at 6 6 mmHg. There is no tricuspid valve prolapse or vegetation. There is no tricuspid valve stenosis. PULMONIC VALVE The pulmonic valve is not well visualized. GREAT VESSELS The aortic root is normal in size. The ascending aorta is normal in size. The IVC is dilated and kala apses >50% with inspiration. PERICARDIAL EFFUSION There is no evidence of significant pericardial effusion. Critical Notification Critical Value: No <Conclusion> The left ventricular systolic function is normal and the ejection fraction is within normal range. Th e Ejection Fraction is 55-60%. There is severe concentric left ventricular hypertrophy. There is normal LV segmental wall motion. There is moderate valvular aortic stenosis. Calculated aortic valve area is 0.9 cm2 with maximum pre ssure gradient of 47 mmHg and mean pressure gradient of 28 mmHg. There is moderate mitral valve stenosis. Calculated mitral valve area is 1.0 cm2 with maximum pressur e gradient of 22 mmHg and mean pressure gradient of 9 mmHg. Doppler and Color Flow revealed mild tricuspid regurgitation. There is moderate-severe pulmonary hype rtension. The PA pressure was estimated at 66 mmHg. Signed by : Gianluca Schultz, Electronically Approved : 06/28/2019 15:40:45
--- NOTE | 2019-06-28 16:41 | RAD ---
Chest radiograph 06/28/2019 5:00 AM INDICATION: CHF COMPARISON: 06/26/2019 TECHNIQUE: Frontal and lateral views of the chest are provided. FINDINGS: The cardiomediastinal silhouette is within normal limits. There is mild pulmonary vascular congestion, not significantly changed. Patchy interstitial changes at the left lung base may represent subsegmental atelectasis versus infiltrate. Improved aeration of the right lung base. No pneumothorax. Flattening of the diaphragms may be seen with air trapping as may be seen with COPD. No significant osseous abnormality is identified. IMPRESSION: Stable cardiomegaly with mild pulmonary vascular congestion as may be seen with congestive heart failure. Improved aeration of the right lung base with persistent subsegmental atelectasis versus infiltrate at the left lung base. Electronically signed by: Mariana Pantoja MD (06/28/2019 4:38 PM) [facility]
[2019-06-28 19:00] VITALS: BP 169/60
[2019-06-28] MEDS: LATANOPROST 0.005% OPHTH SOLUTION 2.5ML BOTTLE. OU SCH (20:42)
[2019-06-28] MEDS: ZOLPIDEM 5 MG TABLET. PO PRN (20:58)
[2019-06-28 23:00] VITALS: BP 152/75
[2019-06-29 03:00] VITALS: BP 173/79
[2019-06-29 07:00] VITALS: BP 192/81
[2019-06-29] MEDS: IPRATRPIUM/ALBUTEROL 0.5/2.5MG 3 ML NEBU. NEB SCH ×3 (07:55→15:45)
[2019-06-29] MEDS: ISOSORBIDE MONONITRATE ER 30 MG TAB.ER.24H PO SCH ×2 (08:00→13:49)
[2019-06-29] MEDS: ASPIRIN ENTERIC COATED 81 MG TABLET.DR. PO SCH (08:00)
[2019-06-29] MEDS: SUCRALFATE 1 GM TABLET. PO SCH ×3 (08:18→16:36)
[2019-06-29] MEDS: SEVELAMER CARBONATE 800 MG TABLET. PO SCH ×3 (08:19→16:35)
[2019-06-29] MEDS: METOCLOPRAMIDE 10 MG TABLET. PO SCH ×3 (08:19→16:37)
[2019-06-29] MEDS: ACETAMINOPHEN 325 MG TABLET. PO SCH ×3 (08:19→16:35)
[2019-06-29] MEDS: FOLIC/VIT B COMP W-C (RENAL) TABLET. PO SCH (08:19)
[2019-06-29] MEDS: FLUTICASONE 50MCG/NASAL SPRAY 16GM BOTTLE. NS SCH (08:20)
[2019-06-29] MEDS: TIMOLOL 0.5% OPHTH SOLUTION 5ML BOTTLE. OU SCH (08:20)
[2019-06-29] MEDS: BRIMONIDINE 0.2% OPHTH SOLUTION 5ML BOTTLE. OU SCH (08:20)
[2019-06-29] MEDS: CHOLECALCIFEROL (VITAMIN D3) 1,000 UNIT TABLET PO SCH (08:21)
[2019-06-29] MEDS: PANTOPRAZOLE 40 MG TABLET.DR. PO SCH (08:21)
[2019-06-29] MEDS: HEPARIN for SUB-Q USE 5,000 UNIT/ML VIAL. SQ SCH (08:21)
[2019-06-29] MEDS: amLODIPine BESYLATE 10 MG TABLET PO SCH ×2 (08:21→13:48)
[2019-06-29] MEDS: LISINOPRIL 20 MG TABLET PO SCH ×2 (08:21→13:48)
[2019-06-29] MEDS ORDERED: IV NORMAL SALINE 1000ML BAG 1,000 ML IV PRN ×2 (08:56)
[2019-06-29] MEDS ORDERED: DIALYSIS PATIENT. MC PRN (09:00)
[2019-06-29] MEDS ORDERED: ACETAMINOPHEN 500 MG TABLET PO PRN (09:00)
[2019-06-29] MEDS ORDERED: diphenhydrAMINE 50 MG/ML VIAL IV PRN ×2 (09:00)
[2019-06-29] MEDS ORDERED: 0.9 % SODIUM CHLORIDE 10 ML DISP.SYRIN. IV PRN ×2 (09:00)
--- NOTE | 2019-06-29 10:14 | NUR ---
Notified Dr. Bunch of patients elevated blood pressure this morning and nausea and vomiting, no new orders received.
--- NOTE | 2019-06-29 10:21 | PDOC ---
PROGRESS NOTES Subjective Subjective feels better today Objective Objective Vital Signs Date Time Temp Pulse Resp B/P (MAP) Pulse Ox O2 Delivery O2 Flow Rate FiO2 06/29/19 07:55 98 Nasal Cannula 1.0 06/29/19 07:00 97.5 76 18 192/81 (118) 97.5 Intake and Output 06/29/19 07:00 Intake Total 270 ml Balance 270 ml Intake Oral 270 ml # Voids 2 # Bowel Movements 1 Physical Exam Abdomen: Normal bowel sounds, Soft, No tenderness Heart: Regular rate, Normal S1, Normal S2 Extremities: No clubbing General: Alert, Oriented X3, Cooperative, mild distress HEENT: Atraumatic, PERRLA Lungs: Clear to auscultation, Other (BASILAR RALES) MUSCULOSKELETAL: No joint tenderness, No deformity, No swelling Neuro: Normal speech, Sensation intact Psych/Mental Status: Mental status NL, Mood NL Skin: No breakdown Diagnosis Problem List Problems Medical Problems: (1) Abdominal pain Status: Acute (2) Acute CHF Status: Acute (3) Chronic kidney disease with end stage renal failure on dialysis Status: Acute (4) Congestive heart failure Status: Acute (5) ESRD (end stage renal disease) Status: Chronic (6) Generalized weakness Status: Acute (7) Hyperkalemia Status: Acute (8) Hypertension Status: Chronic (9) Pulmonary edema Status: Acute (10) SOB (shortness of breath) Status: Acute Assessment Assessment Problems Medical Problems: (1) Abdominal pain Status: Acute (2) Acute CHF Status: Acute (3) Chronic kidney disease with end stage renal failure on dialysis Status: Acute (4) Congestive heart failure Status: Acute (5) ESRD (end stage renal disease) Status: Chronic (6) Generalized weakness Status: Acute (7) Hyperkalemia Status: Acute (8) Hypertension Status: Chronic (9) Pulmonary edema Status: Acute (10) SOB (shortness of breath) Status: Acute FINAL IMPRESSION: 1. Shortness of breath secondary to fluid overload. 2. Chronic diastolic heart failure. 3. End-stage renal disease, on hemodialysis. 4. Hypertension. 5. Hyperlipidemia. 6.Moderate Aortic stenosis. 7 .Pul htn PLAN: clinically improving Pt was dialized today cxr today echo moderate aortic stenosis, pul htn . labs good . cxr improving d/c home later today. 6 mts walk Plan Plan of Care Problems Medical Problems: (1) Abdominal pain Status: Acute (2) Acute CHF Status: Acute (3) Chronic kidney disease with end stage renal failure on dialysis Status: Acute (4) Congestive heart failure Status: Acute (5) ESRD (end stage renal disease) Status: Chronic (6) Generalized weakness Status: Acute (7) Hyperkalemia Status: Acute (8) Hypertension Status: Chronic (9) Pulmonary edema Status: Acute (10) SOB (shortness of breath) Status: Acute Comment Review of Relevant I have reviewed the following items dorina (where applicable) has been applied. Medications Current Medications Acetaminophen (Tylenol) 500 mg 1X PRN PRN PO MILD PAIN / TEMP; Start 06/29/19 at 09:00; Stop 06/30/19 at 08:59 Diphenhydramine HCl (Benadryl) 25 mg 1X PRN PRN IV ITCHING; Start 06/29/19 at 09:00; Stop 06/30/19 at 08:59 Diphenhydramine HCl (Benadryl) 25 mg 1X PRN PRN IV ITCHING; Start 06/29/19 at 09:00; Stop 06/30/19 at 08:59 Info (PHARMACY MONITORING -- do not chart) 1 each PRN DAILY PRN MC SEE COMMENTS; Start 06/29/19 at 09:00; Status Cancel Sodium Chloride 1,000 ml @ 400 mls/hr Q2H30M PRN IV PATENCY; Start 06/29/19 at 08:56; Stop 06/29/19 at 20:55 Sodium Chloride 1,000 ml @ 1,000 mls/hr Q1H PRN IV hypotension; Start 06/29/19 at 08:56; Stop 06/29/19 at 14:55 Sodium Chloride (Normal Saline Flush) 10 ml 1X PRN PRN IV AP catheter pack; Start 06/29/19 at 09:00; Stop 06/30/19 at 08:59 Sodium Chloride (Normal Saline Flush) 10 ml 1X PRN PRN IV DIRECTOR TRADE catheter pack; Start 06/29/19 at 09:00; Stop 06/30/19 at 08:59 Vitals/I & O Vital Sign - Last 24 Hours 06/28/19 06/28/19 06/28/19 06/28/19 11:00 11:32 15:39 19:00 Temp 98.0 98.0 98.0 98.0 Pulse 65 58 Resp 18 18 B/P (MAP) 101/56 (71) 169/60 (96) Pulse Ox 97 97 O2 Delivery Nasal Cannula Room Air Room Air O2 Flow Rate 2.0 06/28/19 06/28/19 06/28/19 06/28/19 19:30 19:55 20:44 20:45 Pulse 62 62 B/P (MAP) 166/60 166/60 Pulse Ox 99 O2 Delivery Nasal Cannula Room Air O2 Flow Rate 2.0 2.0 06/28/19 06/29/19 06/29/19 06/29/19 23:00 03:00 07:00 07:38 Temp 97.8 97.7 97.5 97.8 97.7 97.5 Pulse 63 74 76 Resp 16 18 18 B/P (MAP) 152/75 (100) 173/79 (110) 192/81 (118) Pulse Ox 97 93 97 O2 Delivery Nasal Cannula Nasal Cannula O2 Flow Rate 2.0 2.0 06/29/19 07:55 Pulse Ox 98 O2 Delivery Nasal Cannula O2 Flow Rate 1.0 Intake and Output 06/28/19 06/28/19 06/29/19 15:00 23:00 07:00 Intake Total 150 ml 120 ml Balance 150 ml 120 ml YARY FAIRCHILD MD Jun 29, 2019 10:21
[2019-06-29] MEDS ORDERED: HYDR-2869 PO (10:24)
[2019-06-29] MEDS: CINACALCET HCL 30 MG TABLET PO SCH (11:06)
--- NOTE | 2019-06-29 13:50 | NUR ---
Patient returned from dialysis, blood pressure 176/52, pulse 59. Real Estate Paralegal administered blood pressure medication that patient did not receive this morning: hydralazine, lisinopril, Imdur, and Norvasc. Patient SpO2 97% on room air. Real Estate Paralegal will wait to discharge patient until 6 minute walk completed to see if patient needs home oxygen.
--- NOTE | 2019-06-29 14:25 | PDOC ---
Renal-Progress Notes Subjective Notes Notes LESS SOB History of Present Illness Hx of present illness BETTER Vitals Vitals Vital Signs Date Time Temp Pulse Resp B/P (MAP) Pulse Ox O2 Delivery O2 Flow Rate FiO2 06/29/19 13:49 59 176/52 06/29/19 12:31 97 Room Air 06/29/19 07:55 1.0 06/29/19 07:00 97.5 18 97.5 Weight Weight [ ] I.O. Intake and Output Intake and Output 06/29/19 07:00 Intake Total 270 ml Balance 270 ml Intake Oral 270 ml # Voids 2 # Bowel Movements 1 Review of Systems Constitutional: yes: weakness, alert Ears/Nose/Throat: Yes: no symptom reported Eyes: Yes: no symptom reported Pulmonary: Yes dyspnea Cardiovascular: Yes no symptom reported Gastrointestional: Yes: constipation Genitourinary: Yes: no symptom reported Musculoskeletal: Yes: muscle stiffness Skin: Yes no symptom reported Psychiatric/Neurological: Yes: no symptom reported Endocrine: Yes: no symptom reported Physical Exam General Appearance: no apparent distress, febrile Skin: warm Respiratory: decreased breath sounds Heart: S1S2 Abdomen: soft, bowel sounds present Genitourinary: bladder flat Extremities: pulses present Neurology: alert, oriented Assessment Assessment IMP HYPERKALEMIA-RESOLVED CHF-ACUTE DIASTOLIC DECONDITIONING RECENT GASTROENTERITIS-RESOLVED ANEMIA HTN HX PANCYTOPENIA DYSPNEA-? PULM HTN PLAN HD TODAY UF TO DW CONT LOTUS WILL FOLLOW MARIFER METZ MD Jun 29, 2019 14:25
--- NOTE | 2019-06-29 14:57 | NUR ---
SS following up with discharge planning. SS received discharge orders for home healthcare. Pt requesting referral be phoned and faxed to [facility], ; fax [phone]. SS phoned and faxed referral and orders to [facility]. Pt's RN notified.
[2019-06-29 15:00] VITALS: BP 134/54
--- NOTE | 2019-06-29 16:50 | NUR ---
Discharge Note: EMERALD MAI [address] Discharge instructions and discharge home medications reviewed with Patient and a copy given. All questions have been answered and understanding verbalized. The following instructions and handouts were given: information about chf, htn, and ESRD. Discontinued lines and drains: IV line in left EJ removed, catheter tip intact. Patient discharged to home with [facility] with daughter, wheelchair used for mobility to discharge vehicle.
--- NOTE | 2019-07-04 09:44 | PDOC ---
Provider Note Provider Note Discharge summary dictated.#[id number]. AYRY FAIRCHILD MD Jul 04, 2019 09:44
--- NOTE | 2019-07-04 10:06 | DS ---
DATE OF DISCHARGE: 06/29/2019 REASON FOR ADMISSION TO THE HOSPITAL: Shortness of breath, fluid overload, diastolic heart failure, end-stage renal disease. CONSULTATIONS: 1. Jesús Cavazos MD 2. Gianluca Schultz MD PROCEDURES DONE: Echocardiogram. HOSPITAL COURSE: The patient is a 73-year-old female. The patient was having shortness of breath and she goes to dialysis and she missed 1 dialysis last week, but she went on the next dialysis and she was found to be in fluid overload, was admitted to the hospital, was dialyzed in the hospital. The patient had echocardiogram, which shows ejection fraction 60%, LVH, moderate aortic valvular stenosis, area is 0.9 cm with a gradient of 47, moderate mitral stenosis, area 1 cm, gradient of 22, pulmonary hypertension, PA pressure was 66. The patient did improve with diuresis and recommended to follow with Cardiology for aortic and mitral stenosis. FINAL DIAGNOSES: 1. Fluid overload. 2. End-stage renal disease, on hemodialysis. 3. Moderate to severe aortic and mitral stenosis. 4. Hypertension. 5. Hyperlipidemia. 6. Diastolic heart failure. DISPOSITION: Home. See [facility]AD for discharge medications. Follow up with primary Cardiology for aortic stenosis. YARY FAIRCHILD MD DR: SAM/kailee JOB#: [id number] / [id number]
== END 2019-06-29 16:50 | disposition home health service (06) | DRG 291 ==
LOC: ER 13:55 → 4 NORTH 16:49
PROVIDERS: ADMIT Internal Medicine; ATTEND Internal Medicine
PROC: 5A1D70Z Performance of Urinary Filtration, Intermittent, Less than 6 Hours Per Day (ICD-10-PCS; principal; 2019-06-27)
PROC: 5A1D70Z Performance of Urinary Filtration, Intermittent, Less than 6 Hours Per Day (ICD-10-PCS; 2019-06-29)
DX: I13.2 Hypertensive heart and chronic kidney disease with heart failure and with stage 5 chronic kidney disease, or end stage renal disease (principal); N18.6 End stage renal disease; I50.33 Acute on chronic diastolic (congestive) heart failure; D61.818 Other pancytopenia; E87.5 Hyperkalemia; Z96.651 Presence of right artificial knee joint; E11.22 Type 2 diabetes mellitus with diabetic chronic kidney disease; I27.20 Pulmonary hypertension, unspecified; I35.0 Nonrheumatic aortic (valve) stenosis; E78.5 Hyperlipidemia, unspecified; F32.9 Major depressive disorder, single episode, unspecified; F41.9 Anxiety disorder, unspecified; M19.90 Unspecified osteoarthritis, unspecified site; K21.9 Gastro-esophageal reflux disease without esophagitis; Z88.8 Allergy status to other drugs, medicaments and biological substances; Z99.2 Dependence on renal dialysis; Z88.5 Allergy status to narcotic agent; Z82.49 Family history of ischemic heart disease and other diseases of the circulatory system; Z91.15 Patient's noncompliance with renal dialysis
CPT/HCPCS: 36415; 71045; 71046; 80048; 80053; 82550; 83605; 83880; 84484; 85025; 93005; 93306; 94618; 94640; 94760; J0360; J0882; J1644; J7613; J7620; J8597; 97110; 97116; 97530; 97535; 99291-25; G0378

== ENCOUNTER 2020-04-06 14:06 | Inpatient (IN) | payer MEDICARE, BC ==
[~2020-04-06] VITALS: Ht 167.6 cm; Wt 79.5 kg
[~2020-04-06 14:06] MED LIST changes: -ASPI-612 PO; +ASPI-886 PO; +BRIM5DRO2 OP; +CHOL10003 PO; +GABA100C6 PO; +HYDR-2759 PO; +ONDA8TAB17 PO
--- NOTE | 2020-04-06 15:11 | PHYS DOC ---
Past Medical History Past Medical History: Diabetes-Type II, Hypertension, Renal Disease, Renal Failure Additional Past Medical Histor: ESRF, hemodialysis Past Surgical History: Knee Replacement, Other Additional Past Surgical Histo: Bx cataracts, R Carpal, R arm fistula, Axillary/Head tumor, Bx knee, Smoking Status: Never Smoker Alcohol Use: None Drug Use: None General Adult EDM: Chief Complaint: SHORTNESS OF BREATH HPI: HPI: 74-year-old female presented to the emergency department by EMS today after being about three quarters of the way through dialysis for her treatment when she was becoming short of breath. She has been having shortness of breath off and on for a few weeks and today worsened during her dialysis. She comes in on 3 L oxygen satting well. She reports a recent's close contact with COVID patient. She has been tested but is waiting results currently. Review of systems :she denies chest pain or abdominal pain vomiting fevers or chills. Negative for rash. All other review of systems negative. ED course: 74-year-old female presenting with shortness of breath. Patient is breathing 100% on 3 L nasal cannula with mildly increased respiration rate. Her heart rate is within normal limits. She is afebrile. On examination she has mild crackles in the bases of her lungs without any wheezing. She is not in respiratory distress. CBC is unremarkable. Chemistry panel shows known end- stage renal disease. proBNP is elevated. Troponin is within normal limits. chest x-ray is unremarkable. CT angiogram pending. I spoke with Dr. Daley who accepts the patient for admission. We will have the patient have his angiogram read and reported to the ER before the patient will be admitted. Patient signed out to oncoming ER doctor. Heart Score: Risk Factors: Risk Factors: DM, Current or recent (<one month) smoker, HTN, HLP, family history of CAD, obesity. Risk Scores: Score 0 - 3: 2.5% MACE over next 6 weeks - Discharge Home Score 4 - 6: 20.3% MACE over next 6 weeks - Admit for Clinical Observation Score 7 - 10: 72.7% MACE over next 6 weeks - Early Invasive Strategies Allergies: Allergies: Allergies Coded Allergies Type Severity Reaction Last Updated Verified chlorhexidine Allergy Intermediate Rash 09/01/18 Yes Opioids - Morphine Analogues Adverse Reaction Intermediate Nausea and Vomiting 09/01/18 Yes Opioids-Meperidine and Related Adverse Reaction Intermediate Nausea and Vomiting 09/01/18 Yes Opioids-Methadone and Related Adverse Reaction Intermediate Nausea and Vomiting 09/01/18 Yes codeine Adverse Reaction Intermediate Nausea and Vomiting 09/01/18 Yes Physical Exam: PE: Constitutional: Well developed, well nourished, no acute distress, non-toxic appearance. [] HENT: Normocephalic, atraumatic, bilateral external ears normal, oropharynx moist, no oral exudates, nose normal. [] Eyes: PERRLA, EOMI, conjunctiva normal, no discharge. [] Neck: Normal range of motion, no tenderness, supple, no stridor. [] Cardiovascular:Heart rate regular rhythm, no murmur [] Lungs & Thorax: as above. Abdomen: Bowel sounds normal, soft, no tenderness, no masses, no pulsatile masses. [] Skin: Warm, dry, no erythema, no rash. [] Back: No tenderness, no CVA tenderness. [] Extremities: No tenderness, no cyanosis, no clubbing, ROM intact, no edema. [] Neurologic: Alert and oriented X 3, normal motor function, normal sensory function, no focal deficits noted. [] Psychologic: Affect normal, judgement normal, mood normal. [] Current Patient Data: Vital Signs: Vital Signs Date Time Temp Pulse Resp B/P (MAP) Pulse Ox O2 Delivery O2 Flow Rate FiO2 04/06/20 14:06 97.7 58 23 108/69 (82) 100 Nasal Cannula 3.0 97.7 EKG: EKG: [] Radiology/Procedures: Radiology/Procedures: [] Course & Med Decision Making: Course & Med Decision Making Pertinent Labs and Imaging studies reviewed. (See chart for details) [] Dragon Disclaimer: Dragon Disclaimer: This electronic medical record was generated, in whole or in part, using a voice recognition dictation system. Departure Departure Impression: Primary Impression: Hypoxia Additional Impression: ESRD (end stage renal disease) Disposition: ADMITTED INPATIENT Admitting Physician: Madi. Catalan Condition: STABLE Referrals: YARY FAIRCHILD MD (PCP) Justicifation of Admission Dx: Justifications for Admission: Justification of Admission Dx: Yes Chronic Renal Failure: Other (hypoxia) TIGRE WHITE MD Apr 06, 2020 15:11
[2020-04-06 16:14] LABS: BASO % 1 % (0-3); EOS # 0.1 x10^3/uL (0.0-0.7); EOS % 2 % (0-3); HEMATOCRIT 34.4 % (36.0-47.0); LYMPH % 20 % (24-48); MEAN CORPUSCULAR HEMOGLOBIN 33 pg (25-35); MEAN CORPUSCULAR HGB CONC 35 g/dL (31-37); MEAN CORPUSCULAR VOLUME 94 fL (79-100); MONO # 0.4 x10^3/uL (0.0-1.1); MONO % 7 % (0-9); NEUT # 3.6 x10^3/uL (1.8-7.7); NEUT % 71 % (31-73); PLATELET COUNT 148 x10^3/uL (140-400); RED BLOOD COUNT 3.67 x10^6/uL (3.50-5.40); RED CELL DISTRIBUTION WIDTH 14.2 % (11.5-14.5); WHITE BLOOD COUNT 5.1 x10^3/uL (4.0-11.0)
[2020-04-06 16:23] LABS: CALCIUM 9.2 mg/dL (8.5-10.1); CREATININE 4.1 mg/dL (0.6-1.0); GFR 12.9; POTASSIUM 3.6 mmol/L (3.5-5.1)
--- NOTE | 2020-04-06 16:27 | RAD ---
PORTABLE CHEST 1V History: Reason: SOA / Spl. Instructions: / History: Comparison: November 04, 2019 Findings: No consolidation or pleural effusion. Normal heart size. No pneumothorax. Bilateral glenohumeral DJD, right greater than left. Impression: 1. No acute cardiopulmonary process. Electronically signed by: Shyam Neves DO (04/06/2020 4:24 PM) [id number]
[2020-04-06 16:37] LABS: ALBUMIN 3.5 g/dL (3.4-5.0); DIRECT BILIRUBIN 0.2 mg/dL (0.0-0.2); TOTAL BILIRUBIN 0.5 mg/dL (0.2-1.0)
[2020-04-06] MEDS ORDERED: IOHEXOL 350 MG/ML 100 ML VIAL. IV ONE (18:15)
--- NOTE | 2020-04-06 20:08 | RAD ---
Exam: CT of chest with contrast INDICATION: Short of air TECHNIQUE: Sequential axial images through the chest obtained following the administration of 100 mL of Omni 350 IV contrast. Sagittal and coronal reformatted images were reconstructed from the axial data and reviewed. 3-D reformatted images were reconstructed from the axial data and reviewed. Comparisons: Chest x-ray same day FINDINGS: Visualized portions of the thyroid are unremarkable. No enlarged mediastinal lymph nodes are identified. Heart size is normal. Mild coronary artery calcifications. Thoracic aorta has a normal course and caliber. Pulmonary artery is not enlarged. No pulmonary embolus identified within the main or lobar pulmonary arteries. Evaluation distally is limited secondary to contrast bolus timing. 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 Extensive venous collaterals are noted with contrast filling the right atrium from the IVC. Airways are patent. No consolidation or pneumothorax. No suspicious lung nodules are identified. No pleural effusion or thickening. Several incompletely characterized renal lesions are noted. Otherwise, visualized upper abdomen. No suspicious osseous lesions or acute fractures. IMPRESSION: 1. Evaluation limited secondary to contrast bolus timing. No pulmonary embolus identified within the main, or lobar pulmonary arteries. 2. Occlusion of the SVC with collateral vasculature throughout the left chest tube the abdomen. Contrast fills the right atrium from the IVC. 3. Mild coronary artery calcification. Exposure: One or more of the following in the visualized dose reduction techniques were utilized for this examination: 1. Automated exposure control 2. Adjustment of the MA and/or KV according to patient size 3. Use of iterative of reconstructive technique Electronically signed by: Britta Topete MD (04/06/2020 8:05 PM) [id number]
[2020-04-06 23:00] VITALS: BP 150/65
[2020-04-07] MEDS ORDERED: AMLO5TAB10 PO (00:19)
[2020-04-07] MEDS ORDERED: FLUT16SP NS (00:19)
[2020-04-07] MEDS ORDERED: ATOR40TA59 PO (00:19)
[2020-04-07] MEDS ORDERED: DICL100G28 TP (00:19)
[2020-04-07] MEDS ORDERED: LOSA25TA12 PO (00:19)
[2020-04-07] MEDS ORDERED: ZOLPIDEM 5 MG TABLET. PO PRN (00:30)
[2020-04-07] MEDS ORDERED: CONTRAST GIVEN. MC PRN (00:30)
[2020-04-07 03:00] VITALS: BP 131/67
[2020-04-07 05:41] LABS: CALCIUM 8.5 mg/dL (8.5-10.1); CREATININE 5.2 mg/dL (0.6-1.0); GFR 9.8; POTASSIUM 4.1 mmol/L (3.5-5.1)
[2020-04-07 05:48] LABS: BASO % 1 % (0-3); EOS # 0.1 x10^3/uL (0.0-0.7); EOS % 2 % (0-3); HEMATOCRIT 36.2 % (36.0-47.0); HEMOGLOBIN 12.1 g/dL (12.0-15.5); LYMPH # 1.2 x10^3/uL (1.0-4.8); LYMPH % 22 % (24-48); MEAN CORPUSCULAR HEMOGLOBIN 32 pg (25-35); MEAN CORPUSCULAR HGB CONC 33 g/dL (31-37); MEAN CORPUSCULAR VOLUME 96 fL (79-100); MONO # 0.4 x10^3/uL (0.0-1.1); MONO % 7 % (0-9); NEUT # 3.5 x10^3/uL (1.8-7.7); NEUT % 68 % (31-73); PLATELET COUNT 146 x10^3/uL (140-400); RED BLOOD COUNT 3.77 x10^6/uL (3.50-5.40); RED CELL DISTRIBUTION WIDTH 14.2 % (11.5-14.5); WHITE BLOOD COUNT 5.2 x10^3/uL (4.0-11.0)
[2020-04-07 07:00] VITALS: BP 139/90
--- NOTE | 2020-04-07 10:06 | CONS ---
DATE OF CONSULTATION: 04/07/2020 I was asked to see this 74-year-old lady for acute respiratory failure. HISTORY OF PRESENT ILLNESS: The patient was brought to Emergency Room via EMS after being about three quarters of the way to her dialysis. She became short of breath. She was placed on oxygen 3 liters per minute via nasal cannula. On arrival, her O2 saturation was 100%. She denies any COVID-19 exposure, although the ER physician reports positive exposure. She denies chest pain. She has occasional cough, not worse than usual. She denies fever or chills. She does have obstructive sleep apnea-hypopnea syndrome, but was not able to tolerate CPAP. She does have excessive daytime sleepiness. PAST MEDICAL HISTORY: Obstructive sleep apnea-hypopnea syndrome, diabetes mellitus; end-stage renal disease, on hemodialysis; knee replacement. ALLERGIES: OPIOID, MORPHINE, MEPERIDINE, METHADONE, CHLORHEXIDINE, CODEINE. MEDICATIONS: Currently, she is on Ambien p.r.n. SOCIAL HISTORY: She is a lifelong nonsmoker. FAMILY HISTORY: Hypertension. REVIEW OF SYSTEMS: As mentioned as above, other systems otherwise negative. PHYSICAL EXAMINATION: GENERAL: This is an obese lady. VITAL SIGNS: Her O2 saturation on 3 liters of oxygen 99%, respiratory rate 18, heart rate 69, blood pressure 139/90, temperature 98.9. HEENT: Normocephalic, atraumatic. Pupils equal, round, reactive to light. Nose is clear. NECK: Short and thick. No lymphadenopathy or thyromegaly. CARDIOVASCULAR: Regular rate and rhythm. PMI is nondisplaced. CHEST: Inspection is normal. LUNGS: Clear to auscultation. ABDOMEN: Soft and obese. Bowel sounds are good. There is no mass. EXTREMITIES: There is no edema. LYMPHATICS: There is no lymphadenopathy. NEUROLOGIC: Alert. LABORATORY DATA: I reviewed the following lab data: CT of the chest did not show pulmonary embolism in main and lobar pulmonary arteries. There is occlusion of the SVC with collateral vasculature throughout the left chest. Contrast fills the right atrium from IVC. Mild coronary artery calcification. Chest x-ray does not show any infiltrate. WBC 5.2, hemoglobin 12.1, platelets 146. Sodium 134, potassium 4.1, chloride 100, CO2 of 21, glucose 90, BUN 28, creatinine 5.2 and BNP 3347. Troponin 0.024. Her echocardiogram in 2019 did show moderate aortic stenosis, moderate mitral stenosis. IMPRESSION: 1. Acute respiratory failure secondary to acute diastolic congestive heart failure, valvular disease, untreated obstructive sleep apnea-hypopnea syndrome, rule out COVID-19. 2. Acute diastolic congestive heart failure. 3. Moderate aortic stenosis, moderate mitral stenosis. 4. End-stage renal disease, on hemodialysis. 5. Obstructive sleep apnea-hypopnea syndrome, untreated with CPAP intolerance. 6. Obesity. 7. End-stage renal disease, on hemodialysis. 8. Hypertension. 9. Diabetes mellitus. PLAN AND RECOMMENDATIONS: 1. Titrate FiO2 to keep O2 saturation 92%. 2. Consider Cardiology consultation. 3. Follow up COVID-19 testing. 4. I had a long discussion with her regarding obstructive sleep apnea-hypopnea syndrome, the importance of treatment, if untreated increased cardiovascular and [facility] morbidity or mortality. She understands, but she does not want to use CPAP. 5. Consult Nephrology for hemodialysis. 6. The findings and recommendations were discussed with the patient and RN. 7. She does have an occluded SVC with collateral, I suspect this is chronic, may consider Vascular Surgery consultation. Thank you very much for allowing me to participate in care of this very nice lady. REBEL JASSO M.D. : ANDRES/kailee JOB#: [id number] / [id number]
[2020-04-07 11:23] VITALS: BP 131/58
--- NOTE | 2020-04-07 12:10 | PN ---
DATE: 04/07/2020 SUBJECTIVE: The patient is resting, slightly propped up in bed, no apparent distress. She is awake, alert. On questioning her, she stated that she does not have any shortness of breath today. Denied any chest pain. Denied any cough, phlegm, or hemoptysis. She was evaluated yesterday at the Emergency Room and her chest x-ray was basically unremarkable in particular showed no evidence of pneumothorax, pneumonia, or pleural effusion. Her heart size is normal. CT angio of the chest showed no evidence of pulmonary emboli at least in the main and lobar pulmonary arteries. 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 Her first set of cardiac enzyme showed troponin to be 0.024. She apparently was exposed to a person who was positive for COVID-19 and she continues to be on droplet precaution isolation. She was seen by the machine woodworking sander, who recommended to continue with oxygen supplementation titrated to keep the oxygen saturation 92%. 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 Other medical problems include hypertension, hyperlipidemia, glaucoma, end-stage renal disease. RUDY FREITAS MD DR: ELAINA/kailee JOB#: [id number] / [id number]
[2020-04-07] MEDS ORDERED: ONDANSETRON ODT 4 MG TAB.RAPDIS. PO PRN (12:15)
[2020-04-07] MEDS: amLODIPine BESYLATE 5 MG TABLET PO SCH (12:30)
[2020-04-07] MEDS: GABAPENTIN 100 MG CAPSULE. PO SCH ×2 (12:58→20:55)
[2020-04-07] MEDS: PANTOPRAZOLE 40 MG TABLET.DR. PO SCH (12:58)
[2020-04-07] MEDS: HYDROcodone/APAP 5/325MG 1 TAB TABLET PO PRN (12:59)
[2020-04-07] MEDS: METOCLOPRAMIDE 5 MG TABLET. PO SCH ×3 (12:59→20:55)
[2020-04-07] MEDS: CINACALCET HCL 30 MG TABLET PO SCH (13:00)
[2020-04-07] MEDS: SUCRALFATE 1 GM TABLET. PO SCH ×2 (13:00→17:37)
[2020-04-07] MEDS: SEVELAMER CARBONATE 800 MG TABLET. PO SCH ×2 (13:00→17:37)
[2020-04-07] MEDS: FOLIC/VIT B COMP W-C (RENAL) TABLET. PO SCH (13:00)
[2020-04-07] MEDS: ASPIRIN ENTERIC COATED 81 MG TABLET.DR. PO SCH (13:00)
[2020-04-07] MEDS: LOSARTAN POTASSIUM 25 MG TABLET. PO SCH ×2 (13:01→15:18)
[2020-04-07] MEDS: ISOSORBIDE MONONITRATE ER 30 MG TAB.ER.24H PO SCH (13:01)
[2020-04-07] MEDS: CHOLECALCIFEROL (VITAMIN D3) 1,000 UNIT TABLET PO SCH ×2 (13:01→20:54)
[2020-04-07] MEDS: FLUTICASONE 50MCG/NASAL SPRAY 16GM BOTTLE. NS SCH (13:02)
[2020-04-07] MEDS: TIMOLOL 0.5% OPHTH SOLUTION 5ML BOTTLE. OU SCH ×2 (13:02→21:18)
[2020-04-07] MEDS: BRIMONIDINE 0.2% OPHTH SOLUTION 5ML BOTTLE. OU SCH ×2 (13:03→21:18)
--- NOTE | 2020-04-07 13:20 | NUR ---
This RN consulted Antoine for CaHF exacerbation.
--- NOTE | 2020-04-07 13:36 | HP ---
ADMIT DATE: 04/06/2020 HISTORY OF PRESENT ILLNESS: The patient is a 74-year-old female patient who presented to the Emergency Room by [facility] yesterday after being about 3/[address] through her dialysis for her treatment when she was becoming very short of breath. She has been having shortness of breath off and on for a few weeks and the day of admission, her shortness of breath has worsened. When she arrived, she was on 3 liters of oxygen with oxygen saturation of more than 90%. She reported that she had recent close contact with a COVID patient and in fact she was tested, but she is waiting for the results to come to the. The patient denied, however, any chest pain, denied any abdominal pain. Denied any nausea, vomiting, chills, rigors or fever. She stated that the dialysis nurse always tries to take more fluid and her blood pressure ends up crashing. She was evaluated in the Emergency Room and when she arrived, she was in no respiratory distress. Her blood count was unremarkable. Her chemistry was consistent with end-stage renal disease. Her proBNP was elevated. Troponin was within normal limits. Chest x-ray was unremarkable and she did have a CT angio, which also was negative for DVT. The patient was admitted for further evaluation and treatment. We will obviously consult the side laster to continue the hemodialysis. She is on hemodialysis on Thursday, Thursday, Thursday and consult also the head cleaning porter as well as agile project manager to assist with her evaluation and treatment. PAST MEDICAL HISTORY: Significant for hypertension, chronic diastolic heart failure, pulmonary hypertension, aortic stenosis. She has had also diabetes and end-stage renal disease, on hemodialysis. She apparently has been on dialysis for almost 17 years according to her. PAST SURGICAL HISTORY: Significant for bilateral cataract extraction, bilateral total knee arthroplasty, AV fistula, breast biopsy, carpal tunnel release and cardiac catheterization. FAMILY HISTORY: Positive for heart disease and kidney problems. SOCIAL HISTORY: She lives with her daughter. She does not smoke, drink alcohol or use any recreational drugs. ALLERGIES: SHE IS ALLERGIC TO MORPHINE, DEMEROL, METHADONE, CODEINE, AND CHLORHEXIDINE. MEDICATIONS: She is currently on following medications: She is on atorvastatin calcium 40 mg once a day, hydralazine 50 mg 3 times a day, isosorbide mononitrate 30 mg daily, amlodipine 5 mg once a day, losartan potassium 25 mg once a day, aspirin 81 mg once a day, diclofenac sodium 100 grams gel 1 application 4 times a day, hydrocodone/APAP 5/325 one tablet every 4 hours, gabapentin 100 mg twice a day, Ambien 5 mg at bedtime, Renvela 1600 mg 3 times a day with meals, Flonase 1 spray to each nostril twice a day, Nasonex 2 sprays to each nostril once a day. She is on Combigan eyedrops 1 drop to both eyes twice a day, latanoprost 1 drop to both eyes at bedtime, ondansetron 8 mg twice a day, sucralfate 1 gram 3 times a day, Protonix 40 mg once a day. She is also on metoclopramide 10 mg before meals at bedtime, Sensipar 30 mg once a day, folic acid with vitamin D for Nephro-Elsa 1 tablet once a day. She is also on cholecalciferol, vitamin D3 1000 units twice a day. PHYSICAL EXAMINATION: GENERAL: On arrival to the Emergency Room, she looked well and was clearly in no apparent respiratory distress. She was obviously somewhat pale, but no jaundice, cyanosis or thyromegaly. No jugular venous distention. No lower limb edema. VITAL SIGNS: Her heart rate was 58, blood pressure was 108/69, temperature was 97.7, respiratory rate was 23, and her oxygen was 100% on 3 liters of oxygen. HEAD, EYES, EARS, NOSE AND THROAT: Showed normocephalic, atraumatic. NECK: Supple. HEART: Showed normal first and second heart sounds. No gallop or murmur. CHEST: Clear to auscultation. No crepitation or rhonchi. ABDOMEN: Distended, soft, nontender. No guarding or rigidity. No organomegaly. All hernial orifice intact. Bowel sounds normal. NEUROLOGIC: She was alert, oriented x 3 with normal motor and sensory function. No focal deficit. The affect, judgment and mood were normal. LABORATORY DATA: Her lab works on arrival to the Emergency Room showed a white cell count was 5100, hemoglobin 12, hematocrit 34, MCV 94 and platelet count of 148,000. Her chemistry showed her serum sodium 136, potassium 3.6, chloride 102, bicarbonate 20, anion gap of 14, BUN 23, creatinine 4.1, estimated GFR was 12 mL per minute. Her glucose was 79, calcium was 9.2. Total bilirubin, AST, ALT were normal. Alkaline phosphatase slightly elevated. Total protein was 8, album in was 3.5 and serum lipase was 3.38. Her chest x-ray showed no consolidation or pleural effusion, normal heart size, no pneumothorax. Bilateral glenohumeral degenerative joint disease, right greater than left. Her CT angio of the chest showed evaluation is limited secondary to contrast bolus timing. However, there is no pulmonary emboli identified within the main or lobar pulmonary arteries. She has occlusion of superior vena cava with collateral vasculature throughout the left chest and upper abdomen. Contrast fills the right atrium from the IVC. She has mild chronic coronary artery calcification. ASSESSMENT AND PLAN: The patient was admitted and continued on her current medication. We need to have consulted the head cleaning porter as well as the agile project manager. RUDY FREITAS MD DR: ELAINA/kailee JOB#: [id number] / [id number]
[2020-04-07 15:05] VITALS: BP 138/101
--- NOTE | 2020-04-07 18:01 | CONS ---
DATE OF CONSULTATION: REQUESTING PHYSICIAN: Hospitalist. REASON FOR CONSULTATION: Renal failure. HISTORY OF PRESENT ILLNESS: The patient is a 74-year-old female with history of diabetes mellitus and end-stage renal disease; hemodialysis dependent, Thursday, Thursday, Thursday. She undergoes dialysis at [facility] unit under direction of her physician. The patient was brought to the Emergency Department due to increasing shortness of breath during her dialysis, at the end of her dialysis treatment. She is currently PUI for COVID-19 exposure. The patient also has known history of obstructive sleep apnea. PAST MEDICAL HISTORY: Diabetes mellitus, hypertension, end-stage renal disease, hemodialysis on Thursday, Thursday, Thursday; anemia of chronic kidney disease, secondary hyperparathyroidism, renal disease, obstructive sleep apnea and does not tolerate CPAP. ALLERGIES: MORPHINE, OPIOIDS, MEPERIDINE, METHADONE, CHLORHEXIDINE, AND CODEINE. MEDICATIONS: Reviewed per medication list. FAMILY HISTORY: Noncontributory. SOCIAL HISTORY: The patient resides with assistance. Lifelong nonsmoker. REVIEW OF SYSTEMS: Increased shortness of breath, otherwise unremarkable. PHYSICAL EXAMINATION: GENERAL APPEARANCE: Due to PUI for COVID-19, the patient was not examined at bedside. LABORATORY DATA: Hemoglobin 12, hematocrit 36, white count 5.2. Sodium 134, potassium 4.1, chloride 100, CO2 of 21, BUN 28, creatinine 5.2, glucose 90. IMPRESSION: 1. End-stage renal disease secondary to diabetic nephropathy. Hemodialysis dependent; Thursday, Thursday, Thursday. The patient has been adherent to her schedule. 2. Person under investigation for COVID-19. RECOMMENDATIONS: Ongoing dialysis on Thursday, Thursday and Thursday. We will follow. STEFAN REAL MD DR: JASE/kailee JOB#: [id number] / [id number]
[2020-04-07 19:00] VITALS: BP 98/51
[2020-04-07] MEDS: LATANOPROST 0.005% OPHTH SOLUTION 2.5ML BOTTLE. OU SCH (20:55)
[2020-04-07] MEDS: ATORVASTATIN CALCIUM 40 MG TABLET. PO SCH (20:55)
[2020-04-07] MEDS ORDERED: NON FORMULARY ITEM (Brimonidine Tartrate/Timolol (Combigan Eye Drops) 5 ML) OP SCH (21:00)
[2020-04-07 23:00] VITALS: BP 117/58
[2020-04-07] MEDS: ZOLPIDEM 5 MG TABLET. PO PRN (23:41)
[2020-04-08 03:14] VITALS: BP 122/60
[2020-04-08 07:00] VITALS: BP 136/63
[2020-04-08] MEDS ORDERED: MOMETASONE FUROATE NS SCH (09:00)
--- NOTE | 2020-04-08 09:00 | PDOC ---
PULMONARY PROGRESS NOTES Subjective on 02, sob, cough better, on home 02 Vitals Vital Signs Date Time Temp Pulse Resp B/P (MAP) Pulse Ox O2 Delivery O2 Flow Rate FiO2 04/08/20 03:14 98.2 52 18 122/60 (80) 96 Room Air 98.2 04/07/20 23:00 3.0 General: Alert, Oriented X4, No acute distress Lungs: Other (deminished bs) Cardiovascular: S1, S2 Abdomen: Soft, Non-tender, Other Neuro Exam: Alert Extremities: Other Skin: Warm (deminished bs) Labs Laboratory Tests Test 04/06/20 15:15 04/06/20 16:04 04/07/20 05:00 04/07/20 07:46 Coronavirus (PCR) Not detected (Not Detected) White Blood Count 5.1 x10^3/uL (4.0-11.0) 5.2 x10^3/uL (4.0-11.0) Red Blood Count 3.67 x10^6/uL (3.50-5.40) 3.77 x10^6/uL (3.50-5.40) Hemoglobin 12.0 g/dL (12.0-15.5) 12.1 g/dL (12.0-15.5) Hematocrit 34.4 % (36.0-47.0) 36.2 % (36.0-47.0) Mean Corpuscular Volume 94 fL (79-100) 96 fL (79-100) Mean Corpuscular Hemoglobin 33 pg (25-35) 32 pg (25-35) Mean Corpuscular Hemoglobin Concent 35 g/dL (31-37) 33 g/dL (31-37) Red Cell Distribution Width 14.2 % (11.5-14.5) 14.2 % (11.5-14.5) Platelet Count 148 x10^3/uL (140-400) 146 x10^3/uL (140-400) Neutrophils (%) (Auto) 71 % (31-73) 68 % (31-73) Lymphocytes (%) (Auto) 20 % (24-48) 22 % (24-48) Monocytes (%) (Auto) 7 % (0-9) 7 % (0-9) Eosinophils (%) (Auto) 2 % (0-3) 2 % (0-3) Basophils (%) (Auto) 1 % (0-3) 1 % (0-3) Neutrophils # (Auto) 3.6 x10^3/uL (1.8-7.7) 3.5 x10^3/uL (1.8-7.7) Lymphocytes # (Auto) 1.0 x10^3/uL (1.0-4.8) 1.2 x10^3/uL (1.0-4.8) Monocytes # (Auto) 0.4 x10^3/uL (0.0-1.1) 0.4 x10^3/uL (0.0-1.1) Eosinophils # (Auto) 0.1 x10^3/uL (0.0-0.7) 0.1 x10^3/uL (0.0-0.7) Basophils # (Auto) 0.0 x10^3/uL (0.0-0.2) 0.0 x10^3/uL (0.0-0.2) Sodium Level 136 mmol/L (136-145) 134 mmol/L (136-145) Potassium Level 3.6 mmol/L (3.5-5.1) 4.1 mmol/L (3.5-5.1) Chloride Level 102 mmol/L (98-107) 100 mmol/L (98-107) Carbon Dioxide Level 20 mmol/L (21-32) 21 mmol/L (21-32) Anion Gap 14 (6-14) 13 (6-14) Blood Urea Nitrogen 23 mg/dL (7-20) 28 mg/dL (7-20) Creatinine 4.1 mg/dL (0.6-1.0) 5.2 mg/dL (0.6-1.0) Estimated GFR (Cockcroft-Gault) 12.9 9.8 Glucose Level 79 mg/dL (70-99) 90 mg/dL (70-99) Calcium Level 9.2 mg/dL (8.5-10.1) 8.5 mg/dL (8.5-10.1) Total Bilirubin 0.5 mg/dL (0.2-1.0) Direct Bilirubin 0.2 mg/dL (0.0-0.2) Aspartate Amino Transf (AST/SGOT) 18 U/L (15-37) Alanine Aminotransferase (ALT/SGPT) 9 U/L (14-59) Alkaline Phosphatase 263 U/L (46-116) Troponin I Quantitative 0.024 ng/mL (0.000-0.055) 0.022 ng/mL (0.000-0.055) ZJ-May-Y-Type Natriuretic Peptide 3347 pg/mL (0-124) Total Protein 8.0 g/dL (6.4-8.2) Albumin 3.5 g/dL (3.4-5.0) Lipase 338 U/L (73-393) Glucose (Fingerstick) 92 mg/dL (70-99) Test 04/07/20 11:10 04/07/20 12:32 04/07/20 16:16 04/07/20 21:02 Glucose (Fingerstick) 94 mg/dL (70-99) 137 mg/dL (70-99) 80 mg/dL (70-99) Troponin I Quantitative 0.025 ng/mL (0.000-0.055) Test 04/08/20 08:11 Glucose (Fingerstick) 84 mg/dL (70-99) Laboratory Tests Test 04/07/20 11:10 04/07/20 12:32 04/07/20 16:16 04/07/20 21:02 Glucose (Fingerstick) 94 mg/dL (70-99) 137 mg/dL (70-99) 80 mg/dL (70-99) Troponin I Quantitative 0.025 ng/mL (0.000-0.055) Test 04/08/20 08:11 Glucose (Fingerstick) 84 mg/dL (70-99) Medications Active Scripts Medications Dose Route/Sig Max Daily Dose Days Date Category Losartan Potassium 25 Mg Tablet 25 Mg PO DAILY 04/07/20 Reported Atorvastatin Calcium 40 Mg Tablet 40 Mg PO HS 04/07/20 Reported Amlodipine Besylate 5 Mg Tablet 5 Mg PO DAILY 04/07/20 Reported Fluticasone Propionate Nasal [place] (Fluticasone Propionate) 16 Gm [place].susp 1 [place] NS DAILY 04/07/20 Reported Diclofenac Sodium 100 Gm Gel..gram. 1 Lisbeth TP PRN QID PRN 04/07/20 Reported Ondansetron Hcl 8 Mg Tablet 1 Tab PO PRN BID PRN 11/04/19 Reported Gabapentin 100 Mg Capsule 100 Mg PO BID MDD 200 11/04/19 Reported Hydralazine Hcl 50 Mg Tablet 1 Tab PO TID 06/29/19 Rx Combigan Eye Drops (Brimonidine Tartrate/Timolol) 5 Ml Drops 5 Ml OP BID 06/26/19 Reported Hydrocodone-Acetamin 5-325 mg (Hydrocodone/Acetaminophen) 1 Each Tablet 1 Each PO PRN Q4HRS PRN 06/26/19 Reported Vitamin D3 (Cholecalciferol (Vitamin D3)) 1,000 Unit Tablet 2 Tab PO BID 06/26/19 Reported Reglan (Metoclopramide Hcl) 10 Mg Tablet 1 Tab PO QID 10/08/18 Rx Isosorbide Mononitrate Er (Isosorbide Mononitrate) 30 Mg Tab.er.24h 30 Mg PO DAILY08 30 01/21/18 Rx Aspirin Ec (Aspirin) 81 Mg Tablet. 81 Mg PO DAILYWBKFT 30 08/06/17 Rx Zolpidem Tartrate 5 Mg Tablet 5 Mg PO PRN QHS PRN 02/10/17 Reported Latanoprost 2.5 Ml Drops 1 Drop EACHEYE QHS 06/03/16 Reported Pantoprazole Sodium (Pantoprazole Sodium) 40 Mg Tablet. 40 Mg PO DAILY 05/09/16 Reported Sensipar (Cinacalcet Hcl) 30 Mg Tablet 30 Mg PO DAILYWLUN 02/25/16 Reported Renvela (Sevelamer Carbonate) 800 Mg Tablet 1,600 Mg PO TIDWMEALS 02/25/16 Reported Nephro-Elsa Tablet (Folic Acid/Vitamin B Comp W-C) 0.8 Mg Tablet 1 Tab PO DAILY 02/25/16 Reported Nasonex (Mometasone Furoate) 17 Gm [place].pump 2 Sprays NS DAILY 02/25/16 Reported Carafate (Sucralfate) 1 Gm Tablet 1 Gm PO TIDAC 02/25/16 Reported Impression . IMPRESSION: 1. Acute respiratory failure secondary to acute diastolic congestive heart failure, valvular disease, untreated obstructive sleep apnea-hypopnea syndrome, COVID-19 neg. 2. Acute diastolic congestive heart failure. 3. Moderate aortic stenosis, moderate mitral stenosis. 4. End-stage renal disease, on hemodialysis. 5. Obstructive sleep apnea-hypopnea syndrome, untreated with CPAP intolerance. 6. Obesity. 7. End-stage renal disease, on hemodialysis. 8. Hypertension. 9. Diabetes mellitus. Plan . PLAN AND RECOMMENDATIONS: 1. Titrate FiO2 to keep O2 saturation 92%. 2. Consider Cardiology consultation. 3. COVID-19 neg 4. I had a long discussion with her regarding obstructive sleep apnea-hypopnea syndrome, the importance of treatment, if untreated increased cardiovascular and [employer] morbidity or mortality. She understands, but she does not want to use CPAP. 5. Consult Nephrology for hemodialysis. 6. The findings and recommendations were discussed with the patient and RN. 7. She does have an occluded SVC with collateral, I suspect this is chronic, may consider Vascular Surgery consultation. discussed w REBEL Conway MD Apr 08, 2020 09:00
[2020-04-08] MEDS: SEVELAMER CARBONATE 800 MG TABLET. PO SCH ×3 (10:36→17:33)
[2020-04-08] MEDS: FOLIC/VIT B COMP W-C (RENAL) TABLET. PO SCH (10:36)
[2020-04-08] MEDS: amLODIPine BESYLATE 5 MG TABLET PO SCH (10:36)
[2020-04-08] MEDS: SUCRALFATE 1 GM TABLET. PO SCH ×3 (10:36→17:33)
[2020-04-08] MEDS: ASPIRIN ENTERIC COATED 81 MG TABLET.DR. PO SCH (10:37)
[2020-04-08] MEDS: HYDROcodone/APAP 5/325MG 1 TAB TABLET PO PRN ×2 (10:37→17:34)
[2020-04-08] MEDS: ISOSORBIDE MONONITRATE ER 30 MG TAB.ER.24H PO SCH (10:38)
[2020-04-08] MEDS: GABAPENTIN 100 MG CAPSULE. PO SCH ×2 (10:38→20:57)
[2020-04-08] MEDS: CHOLECALCIFEROL (VITAMIN D3) 1,000 UNIT TABLET PO SCH ×2 (10:38→20:56)
[2020-04-08] MEDS: PANTOPRAZOLE 40 MG TABLET.DR. PO SCH (10:39)
[2020-04-08] MEDS: METOCLOPRAMIDE 5 MG TABLET. PO SCH ×4 (10:39→20:56)
[2020-04-08] MEDS: FLUTICASONE 50MCG/NASAL SPRAY 16GM BOTTLE. NS SCH (10:40)
[2020-04-08] MEDS: BRIMONIDINE 0.2% OPHTH SOLUTION 5ML BOTTLE. OU SCH ×2 (10:40→20:56)
[2020-04-08] MEDS: TIMOLOL 0.5% OPHTH SOLUTION 5ML BOTTLE. OU SCH ×2 (10:40→20:56)
[2020-04-08 11:56] VITALS: BP 139/61
--- NOTE | 2020-04-08 12:09 | PN ---
DATE: 04/08/2020 SUBJECTIVE: The patient is resting, slightly propped up in bed, in no apparent respiratory distress. She has 3 sets of cardiac enzymes that actually were all within normal range at 0.024, 0.022 and 0.025. When I questioned her this morning, she continued to have complaint of chest pain and also asking why her blood pressures dropping despite the fact that they take the same amount of fluid on her dialysis session. PHYSICAL EXAMINATION: GENERAL: When I examined her this morning, she was pale, no jaundice, cyanosis or thyromegaly. No jugular venous distention. No lower limb edema. VITAL SIGNS: Her heart rate was 57, blood pressure was 136/63, temperature was 98.8, respiratory rate was 18 and oxygen saturation was 100% on room air. HEAD, EYES, EARS, NOSE AND THROAT: Showed normocephalic, atraumatic. NECK: Supple. HEART: Showed normal first and second heart sounds. No gallop or murmur. CHEST: Clear to auscultation. No crepitation or rhonchi. ABDOMEN: Distended, soft, nontender. NEUROLOGIC: She is awake, alert, responding appropriately. All cranial nerves intact. She moves extremities without difficulty. Her intake was 400, no output was recorded. LABORATORY DATA: She has no lab work done this morning. Blood sugar is stable. Her chemistry is variable. Her white cell count was 5200, hemoglobin 12, hematocrit 36, MCV 96, and platelet count of 146,000. ASSESSMENT: 1. Chest pain, acute myocardial infarction ruled out. She has 3 sets of cardiac enzymes, all within normal range. 2. End-stage renal disease, on hemodialysis on Thursday, Thursday, Thursday. 3. Hypertension. 4. Chronic diastolic heart failure. 5. Pulmonary hypertension. 6. Aortic stenosis. 7. Type 2 diabetes. 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 The patient continued to complain of low blood pressure and wondered whether her dry weight lowered down. She will be seen by Dr. Bunch tomorrow. RUDY FREITAS MD DR: ELAINA/kailee JOB#: [id number] / [id number]
--- NOTE | 2020-04-08 13:11 | PDOC2 ---
CONSULT Date of Consult Date of Consult DATE: 04/08/20 TIME: 13:05 Reason for Consult Reason for Consult: Shortness of breath, diastolic heart failure Referring Physician Referring Physician: Dr. Daley Identification/Chief Complaint Chief Complaint Shortness of breath Source Source: Chart review, Patient History of Present Illness Reason for Visit: The patient is a 74-year-old female who reports several weeks of gradually inc reasing shortness of breath. She then became significantly short of breath during her hemodialysis run and was admitted through the emergency room. Patient's chest x-ray showed no acute processes. A CT scan showed an a limited study no PE. It did show an occlusion of the SVC. The patient has a long-term history of end-stage renal disease he treated by hemodialysis. A cardiac catheterization in 2017 showed no significant coronary artery disease, and ejection fraction of greater than 70% and pulmonary hypertension with a PA pressure 55/26/38. Patient is feeling better today. He denies chest pain, dizziness or lightheadedness. Past Medical History Cardiovascular: CHF, HTN, Pulmonary hypertension Pulmonary: COPD CENTRAL NERVOUS SYSTEM: Other GI: GERD, Gastritis Heme/Onc: Anemia NOS Psych: Anxiety, Depression Renal/: Chronic renal failure, Other Endocrine: Hyperparathyroidism Past Surgical History Past Surgical History: Cataract Removal, Total knee replacement, Other (Dialysis shunt) Family History Family History: Coronary Artery Disease Social History No ALCOHOL: none Drugs: None Lives: with Family Current Problem List Problem List Problems Medical Problems: (1) ESRD (end stage renal disease) Status: Chronic (2) Hypoxia Status: Acute Current Medications Current Medications Current Medications Iohexol (Omnipaque 350 Mg/ml) 100 ml 1X ONCE IV Last administered on 04/06/20at 19:25; Start 04/06/20 at 18:15; Stop 04/06/20 at 18:16; Status DC Zolpidem Tartrate (Ambien) 5 mg PRN QHS PRN PO INSOMNIA Last administered on 04/07/20at 00:29; Start 04/07/20 at 00:30; Stop 04/07/20 at 15:17; Status DC Info (CONTRAST GIVEN -- Rx MONITORING) 1 each PRN DAILY PRN MC SEE COMMENTS; Start 04/07/20 at 00:30; Stop 04/09/20 at 00:29 Amlodipine Besylate (Norvasc) 5 mg DAILY PO Last administered on 04/08/20 10:36; Start 04/07/20 at 12:30 Aspirin (Ecotrin) 81 mg DAILYWBKFT PO Last administered on 04/08/20 10:37; Start 04/07/20 at 12:30 Atorvastatin Calcium (Lipitor) 40 mg HS PO Last administered on 04/07/20 20:55; Start 04/07/20 at 21:00 Vitamin D (Vitamin D3) 2,000 unit BID PO Last administered on 04/08/20 10:38; Start 04/07/20 at 12:30 Cinacalcet (Sensipar) 30 mg DAILYWLUN PO Last administered on 04/07/20at 13:00; Start 04/07/20 at 12:30 Diclofenac Sodium (Voltaren) 1 lisbeth PRN QID PRN TP PAIN; Start 04/07/20 at 12:00 Fluticasone Propionate (Flonase) 1 spray DAILY NS Last administered on 04/08/20 10:40; Start 04/07/20 at 12:30 Vitamin B Complex/ Vitamin C (Evelyn-Elsa) 1 tab DAILY PO Last administered on 04/08/20 10:36; Start 04/07/20 at 12:30 Gabapentin (Neurontin) 100 mg BID PO Last administered on 04/08/20 10:38; Start 04/07/20 at 12:30 Hydralazine HCl (Apresoline) 50 mg TID PO Last administered on 04/08/20 10:38; Start 04/07/20 at 14:00 Acetaminophen/ Hydrocodone Bitart (Lortab 5/325) 1 tab PRN Q4HRS PRN PO PAIN Last administered on 04/08/20 10:37; Start 04/07/20 at 12:00 Isosorbide Mononitrate (Imdur) 30 mg DAILY08 PO Last administered on 04/08/20 10:38; Start 04/07/20 at 12:30 Latanoprost (Xalatan) 1 drop QHS OU Last administered on 04/07/20at 20:55; Start 04/07/20 at 21:00 Losartan Potassium (Cozaar) 25 mg DAILY PO ; Start 04/07/20 at 12:30 Metoclopramide HCl (Reglan) 2.5 mg QIDACHS PO Last administered on 04/08/20 10:39; Start 04/07/20 at 12:30 Pantoprazole Sodium (Protonix) 40 mg DAILYAC PO Last administered on 04/08/20 10:39; Start 04/07/20 at 12:30 Sevelamer Carbonate (Renvela) 1,600 mg TIDWMEALS PO Last administered on 04/08/20 10:36; Start 04/07/20 at 12:30 Sucralfate (Carafate) 1 gm TIDAC PO Last administered on 04/08/20 10:36; Start 04/07/20 at 12:30 Zolpidem Tartrate (Ambien) 5 mg PRN QHS PRN PO INSOMNIA Last administered on 04/07/20at 23:41; Start 04/07/20 at 12:00 Non-Formulary Medication (Brimonidine Tartrate/Timolol (Combigan Eye Drops)) 5 ml BID OP ; Start 04/07/20 at 21:00; Status UNV Non-Formulary Medication (Mometasone Furoate (Nasonex)) 2 sprays DAILY NS ; Start 04/08/20 at 09:00; Status UNV Ondansetron HCl (Zofran Odt) 4 mg PRN BID PRN PO NAUSEA/VOMITING; Start 04/07/20 at 12:15 Brimonidine Tartrate (Alphagan) 1 drop BID OU Last administered on 04/08/20at 10:40; Start 04/07/20 at 12:30 Timolol Maleate (Timoptic 0.5% [facility]) 1 drop BID OU Last administered on 04/08/20at 10:40; Start 04/07/20 at 12:30 Ibuprofen (Motrin) 600 mg PRN Q6HRS PRN PO INFLAMMATION; Start 04/07/20 at 18:15 Active Scripts Active Hydralazine Hcl 50 Mg Tablet 1 Tab PO TID Reglan (Metoclopramide Hcl) 10 Mg Tablet 1 Tab PO QID Isosorbide Mononitrate Er (Isosorbide Mononitrate) 30 Mg Tab.er.24h 30 Mg PO DAILY08 30 Days Aspirin Ec (Aspirin) 81 Mg Tablet.dr 81 Mg PO DAILYWBKFT 30 Days Reported Losartan Potassium 25 Mg Tablet 25 Mg PO DAILY Atorvastatin Calcium 40 Mg Tablet 40 Mg PO HS Amlodipine Besylate 5 Mg Tablet 5 Mg PO DAILY Fluticasone Propionate Nasal [place] (Fluticasone Propionate) 16 Gm [place].susp 1 [place] NS DAILY Diclofenac Sodium 100 Gm Gel..gram. 1 Lisbeth TP PRN QID PRN Ondansetron Hcl 8 Mg Tablet 1 Tab PO PRN BID PRN Gabapentin 100 Mg Capsule 100 Mg PO BID MDD 200 Combigan Eye Drops (Brimonidine Tartrate/Timolol) 5 Ml Drops 5 Ml OP BID Hydrocodone-Acetamin 5-325 mg (Hydrocodone/Acetaminophen) 1 Each Tablet 1 Each PO PRN Q4HRS PRN Vitamin D3 (Cholecalciferol (Vitamin D3)) 1,000 Unit Tablet 2 Tab PO BID Zolpidem Tartrate 5 Mg Tablet 5 Mg PO PRN QHS PRN Latanoprost 2.5 Ml Drops 1 Drop EACHEYE QHS Pantoprazole Sodium (Pantoprazole Sodium) 40 Mg Tablet.dr 40 Mg PO DAILY Sensipar (Cinacalcet Hcl) 30 Mg Tablet 30 Mg PO DAILYWLUN Renvela (Sevelamer Carbonate) 800 Mg Tablet 1,600 Mg PO TIDWMEALS Nephro-Elsa Tablet (Folic Acid/Vitamin B Comp W-C) 0.8 Mg Tablet 1 Tab PO DAILY Nasonex (Mometasone Furoate) 17 Gm [place].pump 2 Sprays NS DAILY Carafate (Sucralfate) 1 Gm Tablet 1 Gm PO TIDAC Allergies Allergies: Coded Allergies: chlorhexidine (Verified Allergy, Intermediate, Rash, 09/01/18) Opioids - Morphine Analogues (Verified Adverse Reaction, Intermediate, Nausea and Vomiting, 09/01/18) Opioids-Meperidine and Related (Verified Adverse Reaction, Intermediate, Nausea and Vomiting, 09/01/18) Opioids-Methadone and Related (Verified Adverse Reaction, Intermediate, Nausea and Vomiting, 09/01/18) codeine (Verified Adverse Reaction, Intermediate, Nausea and Vomiting, 09/01/18) ROS General: YES: Fatigue Respiratory: YES: Shortness of breath, SOB with excertion Physical Exam General: mild distress HEENT: Atraumatic Lungs: Other (Mildly decreased breath sounds) Heart: Regular rate Abdomen: Normal bowel sounds Vitals VITALS Vital Signs Date Time Temp Pulse Resp B/P (MAP) Pulse Ox O2 Delivery O2 Flow Rate FiO2 04/08/20 11:56 98.2 59 17 139/61 (87) 99 Room Air 98.2 04/07/20 23:00 3.0 Labs Labs Laboratory Tests Test 04/06/20 15:15 04/06/20 16:04 04/07/20 05:00 04/07/20 07:46 Coronavirus (PCR) Not detected (Not Detected) White Blood Count 5.1 x10^3/uL (4.0-11.0) 5.2 x10^3/uL (4.0-11.0) Red Blood Count 3.67 x10^6/uL (3.50-5.40) 3.77 x10^6/uL (3.50-5.40) Hemoglobin 12.0 g/dL (12.0-15.5) 12.1 g/dL (12.0-15.5) Hematocrit 34.4 % (36.0-47.0) 36.2 % (36.0-47.0) Mean Corpuscular Volume 94 fL (79-100) 96 fL (79-100) Mean Corpuscular Hemoglobin 33 pg (25-35) 32 pg (25-35) Mean Corpuscular Hemoglobin Concent 35 g/dL (31-37) 33 g/dL (31-37) Red Cell Distribution Width 14.2 % (11.5-14.5) 14.2 % (11.5-14.5) Platelet Count 148 x10^3/uL (140-400) 146 x10^3/uL (140-400) Neutrophils (%) (Auto) 71 % (31-73) 68 % (31-73) Lymphocytes (%) (Auto) 20 % (24-48) 22 % (24-48) Monocytes (%) (Auto) 7 % (0-9) 7 % (0-9) Eosinophils (%) (Auto) 2 % (0-3) 2 % (0-3) Basophils (%) (Auto) 1 % (0-3) 1 % (0-3) Neutrophils # (Auto) 3.6 x10^3/uL (1.8-7.7) 3.5 x10^3/uL (1.8-7.7) Lymphocytes # (Auto) 1.0 x10^3/uL (1.0-4.8) 1.2 x10^3/uL (1.0-4.8) Monocytes # (Auto) 0.4 x10^3/uL (0.0-1.1) 0.4 x10^3/uL (0.0-1.1) Eosinophils # (Auto) 0.1 x10^3/uL (0.0-0.7) 0.1 x10^3/uL (0.0-0.7) Basophils # (Auto) 0.0 x10^3/uL (0.0-0.2) 0.0 x10^3/uL (0.0-0.2) Sodium Level 136 mmol/L (136-145) 134 mmol/L (136-145) Potassium Level 3.6 mmol/L (3.5-5.1) 4.1 mmol/L (3.5-5.1) Chloride Level 102 mmol/L (98-107) 100 mmol/L (98-107) Carbon Dioxide Level 20 mmol/L (21-32) 21 mmol/L (21-32) Anion Gap 14 (6-14) 13 (6-14) Blood Urea Nitrogen 23 mg/dL (7-20) 28 mg/dL (7-20) Creatinine 4.1 mg/dL (0.6-1.0) 5.2 mg/dL (0.6-1.0) Estimated GFR (Cockcroft-Gault) 12.9 9.8 Glucose Level 79 mg/dL (70-99) 90 mg/dL (70-99) Calcium Level 9.2 mg/dL (8.5-10.1) 8.5 mg/dL (8.5-10.1) Total Bilirubin 0.5 mg/dL (0.2-1.0) Direct Bilirubin 0.2 mg/dL (0.0-0.2) Aspartate Amino Transf (AST/SGOT) 18 U/L (15-37) Alanine Aminotransferase (ALT/SGPT) 9 U/L (14-59) Alkaline Phosphatase 263 U/L (46-116) Troponin I Quantitative 0.024 ng/mL (0.000-0.055) 0.022 ng/mL (0.000-0.055) [place]-Lrq-[id number]-Type Natriuretic Peptide 3347 pg/mL (0-124) Total Protein 8.0 g/dL (6.4-8.2) Albumin 3.5 g/dL (3.4-5.0) Lipase 338 U/L (73-393) Glucose (Fingerstick) 92 mg/dL (70-99) Test 04/07/20 11:10 04/07/20 12:32 04/07/20 16:16 04/07/20 21:02 Glucose (Fingerstick) 94 mg/dL (70-99) 137 mg/dL (70-99) 80 mg/dL (70-99) Troponin I Quantitative 0.025 ng/mL (0.000-0.055) Test 04/08/20 08:11 04/08/20 10:54 Glucose (Fingerstick) 84 mg/dL (70-99) 88 mg/dL (70-99) Laboratory Tests Test 04/07/20 16:16 04/07/20 21:02 04/08/20 08:11 04/08/20 10:54 Glucose (Fingerstick) 137 mg/dL (70-99) 80 mg/dL (70-99) 84 mg/dL (70-99) 88 mg/dL (70-99) Images Images Chest x-ray shows no acute processes. CT scan of the chest shows no PE on a technically limited study. Occlusion of SVC Assessment/Plan Assessment/Plan 1. Respiratory failure. Patient has several underlying conditions including end-stage renal disease, diastolic heart failure and moderate aortic stenosis. Patient is improved today. Fluid management as per dialysis. 2. Diastolic heart failure as above. Catheterization in 2017 showed no coronary artery disease and an ejection fraction of 70%. Will check an echocardiogram for update on LV function and valvular function. 3. Reportedly moderate aortic stenosis. Echo as above. 4. Pulmonary hypertension. Catheterization as noted above. Echocardiogram pending. Thank you for allowing us to participate in the care of your patient. GASTON TURNER MD Apr 08, 2020 13:11
[2020-04-08] MEDS: CINACALCET HCL 30 MG TABLET PO SCH (13:44)
[2020-04-08 15:07] VITALS: BP 120/58
[2020-04-08 19:00] VITALS: BP 135/60
[2020-04-08] MEDS: ZOLPIDEM 5 MG TABLET. PO PRN (20:56)
[2020-04-08] MEDS: LATANOPROST 0.005% OPHTH SOLUTION 2.5ML BOTTLE. OU SCH (20:56)
[2020-04-08] MEDS: ATORVASTATIN CALCIUM 40 MG TABLET. PO SCH (20:57)
[2020-04-08 23:00] VITALS: BP 109/55
[2020-04-09 03:09] VITALS: BP 143/67
[2020-04-09] MEDS: METOCLOPRAMIDE 5 MG TABLET. PO SCH ×4 (07:30→21:29)
[2020-04-09] MEDS: PANTOPRAZOLE 40 MG TABLET.DR. PO SCH (07:30)
[2020-04-09] MEDS: SUCRALFATE 1 GM TABLET. PO SCH ×3 (07:30→17:21)
[2020-04-09 07:55] VITALS: BP 162/72
[2020-04-09] MEDS: SEVELAMER CARBONATE 800 MG TABLET. PO SCH ×3 (08:00→17:22)
[2020-04-09] MEDS: ISOSORBIDE MONONITRATE ER 30 MG TAB.ER.24H PO SCH (08:00)
[2020-04-09] MEDS: ASPIRIN ENTERIC COATED 81 MG TABLET.DR. PO SCH (08:00)
[2020-04-09] MEDS ORDERED: DIALYSIS PATIENT. MC PRN ×2 (08:30)
[2020-04-09 08:49] LABS: ALBUMIN 3.2 g/dL (3.4-5.0); ALBUMIN/GLOBULIN RATIO 0.9 (1.0-1.7); CALCIUM 7.3 mg/dL (8.5-10.1); CREATININE 8.6 mg/dL (0.6-1.0); GFR 5.5; POTASSIUM 4.8 mmol/L (3.5-5.1); TOTAL BILIRUBIN 0.3 mg/dL (0.2-1.0); TOTAL PROTEIN 6.9 g/dL (6.4-8.2)
[2020-04-09] MEDS: TIMOLOL 0.5% OPHTH SOLUTION 5ML BOTTLE. OU SCH ×2 (09:00→21:27)
[2020-04-09] MEDS: FOLIC/VIT B COMP W-C (RENAL) TABLET. PO SCH (09:00)
[2020-04-09] MEDS: LOSARTAN POTASSIUM 25 MG TABLET. PO SCH (09:00)
[2020-04-09] MEDS: CHOLECALCIFEROL (VITAMIN D3) 1,000 UNIT TABLET PO SCH ×2 (09:00→21:28)
[2020-04-09] MEDS: BRIMONIDINE 0.2% OPHTH SOLUTION 5ML BOTTLE. OU SCH ×2 (09:00→21:27)
[2020-04-09] MEDS: GABAPENTIN 100 MG CAPSULE. PO SCH ×2 (09:00→21:29)
[2020-04-09] MEDS: amLODIPine BESYLATE 5 MG TABLET PO SCH (09:00)
[2020-04-09] MEDS: FLUTICASONE 50MCG/NASAL SPRAY 16GM BOTTLE. NS SCH (09:00)
--- NOTE | 2020-04-09 10:08 | PDOC ---
PROGRESS NOTES Subjective Subjective low bp at home ,even though she is off bp meds Objective Objective Vital Signs Date Time Temp Pulse Resp B/P (MAP) Pulse Ox O2 Delivery O2 Flow Rate FiO2 04/09/20 07:55 99.3 64 18 162/72 (102) 98 Room Air 99.3 Intake and Output 04/09/20 07:00 Intake Total 240 ml Output Total 0 ml Balance 240 ml Intake Oral 240 ml Output Urine Total 0 ml Physical Exam Abdomen: Normal bowel sounds Heart: Regular rate General: mild distress HEENT: Atraumatic Lungs: Other (Mildly decreased breath sounds) MUSCULOSKELETAL: No joint tenderness, No deformity Neuro: Normal speech Psych/Mental Status: Mental status NL Skin: No breakdown Diagnosis Problem List Problems Medical Problems: (1) ESRD (end stage renal disease) Status: Chronic (2) Hypoxia Status: Acute Assessment Assessment Problems Medical Problems: (1) ESRD (end stage renal disease) Status: Chronic (2) Hypoxia Status: Acute ASSESSMENT: 1. Chest pain, acute myocardial infarction ruled out. She has 3 sets of cardiac enzymes, all within normal range. 2. End-stage renal disease, on hemodialysis on Thursday, Thursday, Thursday. 3. Hypertension. 4. Chronic diastolic heart failure. 5. Pulmonary hypertension severe. 6. Aortic stenosis. mod 7. Type 2 diabetes diet controlled. 8. SVC thrombosis chronic. PLAN; Dialysis today covid -ve echo noted home tomorrow? labs noted. 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 The patient continued to complain of low blood pressure and wondered whether her dry weight lowered down. She will be seen by Dr. Bunch tomorrow. Plan Plan of Care Problems Medical Problems: (1) ESRD (end stage renal disease) Status: Chronic (2) Hypoxia Status: Acute Comment Review of Relevant I have reviewed the following items dorina (where applicable) has been applied. Labs Laboratory Tests Test 04/08/20 10:54 04/08/20 16:30 04/09/20 07:37 04/09/20 07:54 Glucose (Fingerstick) 88 mg/dL (70-99) 83 mg/dL (70-99) 90 mg/dL (70-99) Sodium Level 134 mmol/L (136-145) Potassium Level 4.8 mmol/L (3.5-5.1) Chloride Level 98 mmol/L (98-107) Carbon Dioxide Level 17 mmol/L (21-32) Anion Gap 19 (6-14) Blood Urea Nitrogen 52 mg/dL (7-20) Creatinine 8.6 mg/dL (0.6-1.0) Estimated GFR (Cockcroft-Gault) 5.5 BUN/Creatinine Ratio 6 (6-20) Glucose Level 88 mg/dL (70-99) Calcium Level 7.3 mg/dL (8.5-10.1) Total Bilirubin 0.3 mg/dL (0.2-1.0) Aspartate Amino Transf (AST/SGOT) 13 U/L (15-37) Alanine Aminotransferase (ALT/SGPT) 8 U/L (14-59) Alkaline Phosphatase 277 U/L (46-116) Total Protein 6.9 g/dL (6.4-8.2) Albumin 3.2 g/dL (3.4-5.0) Albumin/Globulin Ratio 0.9 (1.0-1.7) Medications Current Medications Info (PHARMACY MONITORING -- do not chart) 1 each PRN DAILY PRN MC SEE COMMENTS; Start 04/09/20 at 08:30; Stop 04/09/20 at 08:23; Status DC Info (PHARMACY MONITORING -- do not chart) 1 each PRN DAILY PRN MC SEE COMMENTS; Start 04/09/20 at 08:30 Vitals/I & O Vital Sign - Last 24 Hours 04/08/20 04/08/20 04/08/20 04/08/20 10:36 10:37 10:38 10:38 Pulse 57 57 57 Resp 18 B/P (MAP) 136/63 136/63 136/63 04/08/20 04/08/20 04/08/20 04/08/20 11:37 11:56 15:07 17:34 Temp 98.2 98.1 98.2 98.1 Pulse 59 63 63 Resp 17 17 18 B/P (MAP) 139/61 (87) 120/58 (78) 120/58 Pulse Ox 99 100 O2 Delivery Room Air Room Air Room Air 04/08/20 04/08/20 04/08/20 04/08/20 17:34 18:43 19:00 20:00 Temp 98.2 98.2 Pulse 65 Resp 18 17 20 B/P (MAP) 135/60 (85) Pulse Ox 95 O2 Delivery Room Air Room Air Room Air Room Air 04/08/20 04/08/20 04/09/20 04/09/20 20:57 23:00 03:09 07:55 Temp 98.1 98.3 99.3 98.1 98.3 99.3 Pulse 65 64 65 64 Resp 18 20 18 B/P (MAP) 135/60 109/55 (73) 143/67 (92) 162/72 (102) Pulse Ox 96 98 98 O2 Delivery Room Air Room Air Room Air Intake and Output 04/08/20 04/08/20 04/09/20 15:00 23:00 07:00 Intake Total 240 ml Output Total 0 ml Balance 240 ml Justicifation of Admission Dx: Justifications for Admission: Justification of Admission Dx: Yes Chronic Renal Failure: Other (hypoxia) YARY BUNCH MD Apr 09, 2020 10:08
[2020-04-09] MEDS: CINACALCET HCL 30 MG TABLET PO SCH (12:00)
--- NOTE | 2020-04-09 12:45 | PDOC ---
CARDIO Progress Notes Date and Time Date of Service 04/09/20 Time of Evaluation 1215 Subjective Subjective: No Chest Pain, No Palpitations, Other (SOA improved ) Vitals Vitals Vital Signs Date Time Temp Pulse Resp B/P (MAP) Pulse Ox O2 Delivery O2 Flow Rate FiO2 04/09/20 08:00 Room Air 04/09/20 07:55 99.3 64 18 162/72 (102) 98 99.3 Weight Weight [ ] Input and Output Intake and Output Intake and Output 04/09/20 07:00 Intake Total 240 ml Output Total 0 ml Balance 240 ml Intake Oral 240 ml Output Urine Total 0 ml Laboratory Labs Laboratory Tests Test 04/08/20 16:30 04/09/20 07:37 04/09/20 07:54 Glucose (Fingerstick) 83 mg/dL (70-99) 90 mg/dL (70-99) Sodium Level 134 mmol/L (136-145) Potassium Level 4.8 mmol/L (3.5-5.1) Chloride Level 98 mmol/L (98-107) Carbon Dioxide Level 17 mmol/L (21-32) Anion Gap 19 (6-14) Blood Urea Nitrogen 52 mg/dL (7-20) Creatinine 8.6 mg/dL (0.6-1.0) Estimated GFR (Cockcroft-Gault) 5.5 BUN/Creatinine Ratio 6 (6-20) Glucose Level 88 mg/dL (70-99) Calcium Level 7.3 mg/dL (8.5-10.1) Total Bilirubin 0.3 mg/dL (0.2-1.0) Aspartate Amino Transf (AST/SGOT) 13 U/L (15-37) Alanine Aminotransferase (ALT/SGPT) 8 U/L (14-59) Alkaline Phosphatase 277 U/L (46-116) Total Protein 6.9 g/dL (6.4-8.2) Albumin 3.2 g/dL (3.4-5.0) Albumin/Globulin Ratio 0.9 (1.0-1.7) Physical Exam HEENT: Neck Supple W Full Motion Chest: Symmetric LUNGS: Other (diminished bases) Heart: RRR Abdomen: Soft N/T Extremities: No Calf Tenderness Neurology: alert, oriented, follow commands Assessment Assessment 1. Acute on chronic respiratory failure with a/c CHF 2. Acute on chronic diastolic CHF; Recent echo with preserved LF systolic function 3. Hypertension; better controlled 4. Hyperlipidemia; statin therapy 5. Bradycardia, sinus; chronic. Lowest 49. No pauses 6. ESRD on HD 7. Valvular disease; severe mitral calcification and mild-moderate aortic stenosis. severe. LVH Recommendations Fluid offloading via HD BP control. Continue imdur, hydralazine, amlodipine, and losartan- titrate as warranted Avoid AV estefany blocking agents Outpatient echocardiogram Supportive care Justicifation of Admission Dx: Justifications for Admission: Justification of Admission Dx: Yes Chronic Renal Failure: Other (hypoxia) BRIAN MEDINA APRN Apr 09, 2020 12:45
[2020-04-09 15:31] VITALS: BP 120/64
--- NOTE | 2020-04-09 15:43 | PDOC ---
Renal-Progress Notes Subjective Notes Notes NO NEW COMPLAINTS History of Present Illness Hx of present illness STABLE Vitals Vitals Vital Signs Date Time Temp Pulse Resp B/P (MAP) Pulse Ox O2 Delivery O2 Flow Rate FiO2 04/09/20 15:31 98.9 64 16 120/64 (82) 96 Room Air 98.9 Weight Weight [ ] I.O. Intake and Output Intake and Output 04/09/20 07:00 Intake Total 240 ml Output Total 0 ml Balance 240 ml Intake Oral 240 ml Output Urine Total 0 ml Labs Labs Laboratory Tests Test 04/08/20 16:30 04/09/20 07:37 04/09/20 07:54 Glucose (Fingerstick) 83 mg/dL (70-99) 90 mg/dL (70-99) Sodium Level 134 mmol/L (136-145) Potassium Level 4.8 mmol/L (3.5-5.1) Chloride Level 98 mmol/L (98-107) Carbon Dioxide Level 17 mmol/L (21-32) Anion Gap 19 (6-14) Blood Urea Nitrogen 52 mg/dL (7-20) Creatinine 8.6 mg/dL (0.6-1.0) Estimated GFR (Cockcroft-Gault) 5.5 BUN/Creatinine Ratio 6 (6-20) Glucose Level 88 mg/dL (70-99) Calcium Level 7.3 mg/dL (8.5-10.1) Total Bilirubin 0.3 mg/dL (0.2-1.0) Aspartate Amino Transf (AST/SGOT) 13 U/L (15-37) Alanine Aminotransferase (ALT/SGPT) 8 U/L (14-59) Alkaline Phosphatase 277 U/L (46-116) Total Protein 6.9 g/dL (6.4-8.2) Albumin 3.2 g/dL (3.4-5.0) Albumin/Globulin Ratio 0.9 (1.0-1.7) Review of Systems Constitutional: yes: alert Ears/Nose/Throat: Yes: no symptom reported Pulmonary: Yes no symptom reported Cardiovascular: Yes no symptom reported Gastrointestional: Yes: no symptom reported Musculoskeletal: Yes: no symptom reported Skin: Yes no symptom reported Psychiatric/Neurological: Yes: no symptom reported Endocrine: Yes: no symptom reported Physical Exam General Appearance: no apparent distress Skin: warm Respiratory: decreased breath sounds Heart: S1S2 Abdomen: soft, bowel sounds present Genitourinary: bladder flat Extremities: pulses present Neurology: alert Assessment Assessment IMP FEVER ESRD ANEMIA DM II HTN PLAN HD TODAY UF TO DW RULE OUT COVID LOTUS NEEDED EMPIRIC ANTIBIOTICS MARIFER METZ MD Apr 09, 2020 15:43
--- NOTE | 2020-04-09 15:57 | PDOC ---
PULMONARY PROGRESS NOTES Subjective Patient with no chest pain no pressure no increasing shortness of breath, or nausea vomiting Vitals Vital Signs Date Time Temp Pulse Resp B/P (MAP) Pulse Ox O2 Delivery O2 Flow Rate FiO2 04/09/20 15:31 98.9 64 16 120/64 (82) 96 Room Air 98.9 ROS: No Nausea, No Chest Pain, No Abdominal Pain, No Increase Cough General: Alert, No acute distress Lungs: Other (deminished bs) Cardiovascular: S1, S2 Abdomen: Soft, Non-tender, Other Neuro Exam: Alert Extremities: Other Skin: Warm (deminished bs) Labs Laboratory Tests Test 04/07/20 16:16 04/07/20 21:02 04/08/20 08:11 04/08/20 10:54 Glucose (Fingerstick) 137 mg/dL (70-99) 80 mg/dL (70-99) 84 mg/dL (70-99) 88 mg/dL (70-99) Test 04/08/20 16:30 04/09/20 07:37 04/09/20 07:54 Glucose (Fingerstick) 83 mg/dL (70-99) 90 mg/dL (70-99) Sodium Level 134 mmol/L (136-145) Potassium Level 4.8 mmol/L (3.5-5.1) Chloride Level 98 mmol/L (98-107) Carbon Dioxide Level 17 mmol/L (21-32) Anion Gap 19 (6-14) Blood Urea Nitrogen 52 mg/dL (7-20) Creatinine 8.6 mg/dL (0.6-1.0) Estimated GFR (Cockcroft-Gault) 5.5 BUN/Creatinine Ratio 6 (6-20) Glucose Level 88 mg/dL (70-99) Calcium Level 7.3 mg/dL (8.5-10.1) Total Bilirubin 0.3 mg/dL (0.2-1.0) Aspartate Amino Transf (AST/SGOT) 13 U/L (15-37) Alanine Aminotransferase (ALT/SGPT) 8 U/L (14-59) Alkaline Phosphatase 277 U/L (46-116) Total Protein 6.9 g/dL (6.4-8.2) Albumin 3.2 g/dL (3.4-5.0) Albumin/Globulin Ratio 0.9 (1.0-1.7) Laboratory Tests Test 04/08/20 16:30 04/09/20 07:37 04/09/20 07:54 Glucose (Fingerstick) 83 mg/dL (70-99) 90 mg/dL (70-99) Sodium Level 134 mmol/L (136-145) Potassium Level 4.8 mmol/L (3.5-5.1) Chloride Level 98 mmol/L (98-107) Carbon Dioxide Level 17 mmol/L (21-32) Anion Gap 19 (6-14) Blood Urea Nitrogen 52 mg/dL (7-20) Creatinine 8.6 mg/dL (0.6-1.0) Estimated GFR (Cockcroft-Gault) 5.5 BUN/Creatinine Ratio 6 (-20) Glucose Level 88 mg/dL (70-99) Calcium Level 7.3 mg/dL (8.5-10.1) Total Bilirubin 0.3 mg/dL (0.2-1.0) Aspartate Amino Transf (AST/SGOT) 13 U/L (15-37) Alanine Aminotransferase (ALT/SGPT) 8 U/L (14-59) Alkaline Phosphatase 277 U/L (46-116) Total Protein 6.9 g/dL (6.4-8.2) Albumin 3.2 g/dL (3.4-5.0) Albumin/Globulin Ratio 0.9 (1.0-1.7) Medications Active Scripts Medications Dose Route/Sig Max Daily Dose Days Date Category Losartan Potassium 25 Mg Tablet 25 Mg PO DAILY 04/07/20 Reported Atorvastatin Calcium 40 Mg Tablet 40 Mg PO HS 04/07/20 Reported Amlodipine Besylate 5 Mg Tablet 5 Mg PO DAILY 04/07/20 Reported Fluticasone Propionate Nasal [place] (Fluticasone Propionate) 16 Gm [place].susp 1 [place] NS DAILY 04/07/20 Reported Diclofenac Sodium 100 Gm Gel..gram. 1 Lisbeth TP PRN QID PRN 04/07/20 Reported Ondansetron Hcl 8 Mg Tablet 1 Tab PO PRN BID PRN 11/04/19 Reported Gabapentin 100 Mg Capsule 100 Mg PO BID MDD 200 11/04/19 Reported Hydralazine Hcl 50 Mg Tablet 1 Tab PO TID 06/29/19 Rx Combigan Eye Drops (Brimonidine Tartrate/Timolol) 5 Ml Drops 5 Ml OP BID 06/26/19 Reported Hydrocodone-Acetamin 5-325 mg (Hydrocodone/Acetaminophen) 1 Each Tablet 1 Each PO PRN Q4HRS PRN 06/26/19 Reported Vitamin D3 (Cholecalciferol (Vitamin D3)) 1,000 Unit Tablet 2 Tab PO BID 06/26/19 Reported Reglan (Metoclopramide Hcl) 10 Mg Tablet 1 Tab PO QID 10/08/18 Rx Isosorbide Mononitrate Er (Isosorbide Mononitrate) 30 Mg Tab.er.24h 30 Mg PO DAILY08 30 01/21/18 Rx Aspirin Ec (Aspirin) 81 Mg Tablet. 81 Mg PO DAILYWBKFT 30 08/06/17 Rx Zolpidem Tartrate 5 Mg Tablet 5 Mg PO PRN QHS PRN 02/10/17 Reported Latanoprost 2.5 Ml Drops 1 Drop EACHEYE QHS 06/03/16 Reported Pantoprazole Sodium (Pantoprazole Sodium) 40 Mg Tablet. 40 Mg PO DAILY 05/09/16 Reported Sensipar (Cinacalcet Hcl) 30 Mg Tablet 30 Mg PO DAILYWLUN 02/25/16 Reported Renvela (Sevelamer Carbonate) 800 Mg Tablet 1,600 Mg PO TIDWMEALS 02/25/16 Reported Nephro-Elsa Tablet (Folic Acid/Vitamin B Comp W-C) 0.8 Mg Tablet 1 Tab PO DAILY 02/25/16 Reported Nasonex (Mometasone Furoate) 17 Gm [place].pump 2 Sprays NS DAILY 02/25/16 Reported Carafate (Sucralfate) 1 Gm Tablet 1 Gm PO TIDAC 02/25/16 Reported Impression . IMPRESSION: 1. Acute respiratory failure secondary to acute diastolic congestive heart failure, valvular disease, 2. Acute diastolic congestive heart failure. 3. Moderate aortic stenosis, moderate mitral stenosis. 4. End-stage renal disease, on hemodialysis. 5. Obstructive sleep apnea-hypopnea syndrome, untreated with CPAP intolerance. 6. Obesity. 7. End-stage renal disease, on hemodialysis. 8. Hypertension. 9. Diabetes mellitus. 10. SARS-CoV-2 negative 11. DONA Plan . Home in the a.m. okay by me Strongly recommend use of CPAP at home BERENICE RAMIREZ MD Apr 09, 2020 15:57
--- NOTE | 2020-04-09 16:18 | NUR ---
SW following. Spoke with RN and reviewed chart. Pt from home with dtr and dtr's family. Pt on room air. Pt on oral medications. Pt is COVID negative. Pt has had HH from [facility] in the past and has also been to [facility] in the past. Spoke with pt who is declining both HH and SNU at discharge per risk of COVID. Pt does out-patient dialysis on MWF at [facility], , (fax). SW to continue following as needed.
[2020-04-09 19:00] VITALS: BP 124/57
[2020-04-09] MEDS: ZOLPIDEM 5 MG TABLET. PO PRN (21:28)
[2020-04-09] MEDS: ATORVASTATIN CALCIUM 40 MG TABLET. PO SCH (21:29)
[2020-04-09] MEDS: IBUPROFEN 200 MG TABLET. PO PRN (21:36)
[2020-04-09] MEDS: LATANOPROST 0.005% OPHTH SOLUTION 2.5ML BOTTLE. OU SCH (21:36)
[2020-04-09 23:00] VITALS: BP 117/56
[2020-04-09] MEDS: DICLOFENAC SODIUM 1% TOPICAL GEL 100GM TUBE. TP PRN (23:29)
[2020-04-10 03:00] VITALS: BP 126/58
--- NOTE | 2020-04-10 05:09 | EKG ---
[facility] [address] [place] [id number] Test Date: 2020-04-06 Test Time: 14:56:33 Pat Name: EMERALD MAI Department: Room: Gender: F [employer]: : 1945 Requested By: TIGRE WHITE Order Number: [id number] Reading MD: Measurements Intervals [place] Rate: 57 P: 42 DC: 292 QRS: 13 QRSD: 88 T: 80 QT: 500 QTc: 490 Interpretive Statements SINUS RHYTHM PROLONGED DC INTERVAL QRS(T) CONTOUR ABNORMALITY CONSISTENT WITH ANTEROSEPTAL INFARCT AGE UNDETERMINED T ABNORMALITY IN HIGH LATERAL LEADS ABNORMAL ECG RI6.01 No previous ECG available for comparison
[2020-04-10 07:20] VITALS: BP 141/59
[2020-04-10] MEDS: ISOSORBIDE MONONITRATE ER 30 MG TAB.ER.24H PO SCH (08:00)
[2020-04-10] MEDS: LOSARTAN POTASSIUM 25 MG TABLET. PO SCH (09:00)
[2020-04-10] MEDS: amLODIPine BESYLATE 5 MG TABLET PO SCH (09:00)
--- NOTE | 2020-04-10 10:12 | PDOC ---
PROGRESS NOTES Subjective Subjective feels better ,ready to go home Objective Objective Vital Signs Date Time Temp Pulse Resp B/P (MAP) Pulse Ox O2 Delivery O2 Flow Rate FiO2 04/10/20 07:20 97.4 97 17 141/59 (86) 99 Room Air 97.4 04/10/20 03:00 3.0 Intake and Output 04/10/20 06:59 Intake Total 1190 ml Balance 1190 ml Intake Oral 1190 ml # Voids 1 Physical Exam Abdomen: Normal bowel sounds Heart: Regular rate General: mild distress HEENT: Atraumatic Lungs: Other (Mildly decreased breath sounds) MUSCULOSKELETAL: No joint tenderness, No deformity Neuro: Normal speech Psych/Mental Status: Mental status NL Skin: No breakdown Diagnosis Problem List Problems Medical Problems: (1) ESRD (end stage renal disease) Status: Chronic (2) Hypoxia Status: Acute Assessment Assessment Problems Medical Problems: (1) ESRD (end stage renal disease) Status: Chronic (2) Hypoxia Status: Acute ASSESSMENT: 1. Chest pain, acute myocardial infarction ruled out. She has 3 sets of cardiac enzymes, all within normal range. 2. End-stage renal disease, on hemodialysis on Thursday, Thursday, Thursday. 3. Hypertension. 4. Chronic diastolic heart failure. 5. Pulmonary hypertension severe. 6. Aortic stenosis. mod 7. Type 2 diabetes diet controlled. 8. SVC thrombosis chronic. PLAN;d/c home today Dialysis yesterday covid -ve echo noted midodrine for low BP labs noted. CTA -neg for PE , old SVC thrombosis Plan Plan of Care Problems Medical Problems: (1) ESRD (end stage renal disease) Status: Chronic (2) Hypoxia Status: Acute Comment Review of Relevant I have reviewed the following items dorina (where applicable) has been applied. Labs Laboratory Tests Test 04/09/20 16:24 04/09/20 20:12 04/10/20 08:06 Glucose (Fingerstick) 121 mg/dL (70-99) 103 mg/dL (70-99) 81 mg/dL (70-99) Vitals/I & O Vital Sign - Last 24 Hours 04/09/20 04/09/20 04/09/20 04/09/20 15:31 19:00 20:00 21:00 Temp 98.9 98.7 98.9 98.7 Pulse 64 81 81 Resp 16 18 B/P (MAP) 120/64 (82) 124/57 (79) 124/57 Pulse Ox 96 96 O2 Delivery Room Air Room Air Room Air O2 Flow Rate 3.0 04/09/20 04/10/20 04/10/20 23:00 03:00 07:20 Temp 98.0 97.6 97.4 98.0 97.6 97.4 Pulse 66 83 97 Resp 18 17 17 B/P (MAP) 117/56 (76) 126/58 (80) 141/59 (86) Pulse Ox 97 97 99 O2 Delivery Room Air Room Air Room Air O2 Flow Rate 3.0 3.0 Intake and Output 04/09/20 04/09/20 04/10/20 14:59 22:59 06:59 Intake Total 300 ml 150 ml 740 ml Balance 300 ml 150 ml 740 ml Justicifation of Admission Dx: Justifications for Admission: Justification of Admission Dx: Yes Chronic Renal Failure: Other (hypoxia) YARY FAIRCHILD MD Apr 10, 2020 10:12
[2020-04-10] MEDS ORDERED: MIDO5TAB4 PO (10:15)
[2020-04-10] MEDS: METOCLOPRAMIDE 5 MG TABLET. PO SCH ×2 (10:49→11:30)
[2020-04-10] MEDS: SEVELAMER CARBONATE 800 MG TABLET. PO SCH ×2 (10:49→11:57)
[2020-04-10] MEDS: CHOLECALCIFEROL (VITAMIN D3) 1,000 UNIT TABLET PO SCH (10:49)
[2020-04-10] MEDS: FOLIC/VIT B COMP W-C (RENAL) TABLET. PO SCH (10:49)
[2020-04-10] MEDS: IBUPROFEN 200 MG TABLET. PO PRN (10:49)
[2020-04-10] MEDS: SUCRALFATE 1 GM TABLET. PO SCH ×2 (10:50→11:30)
[2020-04-10] MEDS: GABAPENTIN 100 MG CAPSULE. PO SCH (10:50)
[2020-04-10] MEDS: PANTOPRAZOLE 40 MG TABLET.DR. PO SCH (10:50)
[2020-04-10] MEDS: ASPIRIN ENTERIC COATED 81 MG TABLET.DR. PO SCH (10:51)
[2020-04-10] MEDS: DICLOFENAC SODIUM 1% TOPICAL GEL 100GM TUBE. TP PRN (10:52)
[2020-04-10] MEDS: BRIMONIDINE 0.2% OPHTH SOLUTION 5ML BOTTLE. OU SCH (10:53)
[2020-04-10] MEDS: FLUTICASONE 50MCG/NASAL SPRAY 16GM BOTTLE. NS SCH (10:53)
[2020-04-10] MEDS: TIMOLOL 0.5% OPHTH SOLUTION 5ML BOTTLE. OU SCH (10:54)
[2020-04-10 11:10] VITALS: BP 148/49
--- NOTE | 2020-04-10 11:50 | PDOC ---
Renal-Progress Notes Subjective Notes Notes NO NEW COMPLAINTS History of Present Illness Hx of present illness STABLE Vitals Vitals Vital Signs Date Time Temp Pulse Resp B/P (MAP) Pulse Ox O2 Delivery O2 Flow Rate FiO2 04/10/20 11:10 98.2 63 17 148/49 (82) 99 Room Air 98.2 04/10/20 03:00 3.0 Weight Weight [ ] I.O. Intake and Output Intake and Output 04/10/20 07:00 Intake Total 1190 ml Balance 1190 ml Intake Oral 1190 ml # Voids 1 Labs Labs Laboratory Tests Test 04/09/20 16:24 04/09/20 20:12 04/10/20 08:06 04/10/20 11:33 Glucose (Fingerstick) 121 mg/dL (70-99) 103 mg/dL (70-99) 81 mg/dL (70-99) 85 mg/dL (70-99) Review of Systems Constitutional: yes: alert Ears/Nose/Throat: Yes: no symptom reported Pulmonary: Yes no symptom reported Cardiovascular: Yes no symptom reported Gastrointestional: Yes: no symptom reported Musculoskeletal: Yes: no symptom reported Skin: Yes no symptom reported Psychiatric/Neurological: Yes: no symptom reported Endocrine: Yes: no symptom reported Physical Exam General Appearance: no apparent distress Skin: warm Respiratory: decreased breath sounds Heart: S1S2 Abdomen: soft, bowel sounds present Genitourinary: bladder flat Extremities: pulses present Neurology: alert, oriented, follow commands Assessment Assessment IMP FEVER ESRD ANEMIA DM II HTN PLAN HD TOMORROW PROB D/C TODAY D/W ATTENDING MARIFER METZ MD Apr 10, 2020 11:50
--- NOTE | 2020-04-10 12:26 | PDOC ---
PULMONARY PROGRESS NOTES Subjective Patient feels better ready to discharge Vitals Vital Signs Date Time Temp Pulse Resp B/P (MAP) Pulse Ox O2 Delivery O2 Flow Rate FiO2 04/10/20 11:10 98.2 63 17 148/49 (82) 99 Room Air 98.2 04/10/20 03:00 3.0 ROS: No Nausea, No Chest Pain, No Abdominal Pain, No Increase Cough General: Alert, No acute distress Lungs: Other (deminished bs) Cardiovascular: S1, S2 Abdomen: Soft, Non-tender, Other Neuro Exam: Alert Extremities: Other Skin: Warm (deminished bs) Labs Laboratory Tests Test 04/08/20 16:30 04/09/20 07:37 04/09/20 07:54 04/09/20 16:24 Glucose (Fingerstick) 83 mg/dL (70-99) 90 mg/dL (70-99) 121 mg/dL (70-99) Sodium Level 134 mmol/L (136-145) Potassium Level 4.8 mmol/L (3.5-5.1) Chloride Level 98 mmol/L (98-107) Carbon Dioxide Level 17 mmol/L (21-32) Anion Gap 19 (6-14) Blood Urea Nitrogen 52 mg/dL (7-20) Creatinine 8.6 mg/dL (0.6-1.0) Estimated GFR (Cockcroft-Gault) 5.5 BUN/Creatinine Ratio 6 (6-20) Glucose Level 88 mg/dL (70-99) Calcium Level 7.3 mg/dL (8.5-10.1) Total Bilirubin 0.3 mg/dL (0.2-1.0) Aspartate Amino Transf (AST/SGOT) 13 U/L (15-37) Alanine Aminotransferase (ALT/SGPT) 8 U/L (14-59) Alkaline Phosphatase 277 U/L (46-116) Total Protein 6.9 g/dL (6.4-8.2) Albumin 3.2 g/dL (3.4-5.0) Albumin/Globulin Ratio 0.9 (1.0-1.7) Test 04/09/20 20:12 04/10/20 08:06 04/10/20 11:33 Glucose (Fingerstick) 103 mg/dL (70-99) 81 mg/dL (70-99) 85 mg/dL (70-99) Laboratory Tests Test 04/09/20 16:24 04/09/20 20:12 04/10/20 08:06 04/10/20 11:33 Glucose (Fingerstick) 121 mg/dL (70-99) 103 mg/dL (70-99) 81 mg/dL (70-99) 85 mg/dL (70-99) Medications Active Scripts Medications Dose Route/Sig Max Daily Dose Days Date Category Losartan Potassium 25 Mg Tablet 25 Mg PO DAILY 04/07/20 Reported Atorvastatin Calcium 40 Mg Tablet 40 Mg PO HS 04/07/20 Reported Amlodipine Besylate 5 Mg Tablet 5 Mg PO DAILY 04/07/20 Reported Fluticasone Propionate Nasal [place] (Fluticasone Propionate) 16 Gm [place].susp 1 [place] NS DAILY 04/07/20 Reported Diclofenac Sodium 100 Gm Gel..gram. 1 Lisbeth TP PRN QID PRN 04/07/20 Reported Ondansetron Hcl 8 Mg Tablet 1 Tab PO PRN BID PRN 11/04/19 Reported Gabapentin 100 Mg Capsule 100 Mg PO BID MDD 200 11/04/19 Reported Hydralazine Hcl 50 Mg Tablet 1 Tab PO TID 06/29/19 Rx Combigan Eye Drops (Brimonidine Tartrate/Timolol) 5 Ml Drops 5 Ml OP BID 06/26/19 Reported Hydrocodone-Acetamin 5-325 mg (Hydrocodone/Acetaminophen) 1 Each Tablet 1 Each PO PRN Q4HRS PRN 06/26/19 Reported Vitamin D3 (Cholecalciferol (Vitamin D3)) 1,000 Unit Tablet 2 Tab PO BID 06/26/19 Reported Reglan (Metoclopramide Hcl) 10 Mg Tablet 1 Tab PO QID 10/08/18 Rx Isosorbide Mononitrate Er (Isosorbide Mononitrate) 30 Mg Tab.er.24h 30 Mg PO DAILY08 30 01/21/18 Rx Aspirin Ec (Aspirin) 81 Mg Tablet.dr 81 Mg PO DAILYWBKFT 30 08/06/17 Rx Zolpidem Tartrate 5 Mg Tablet 5 Mg PO PRN QHS PRN 02/10/17 Reported Latanoprost 2.5 Ml Drops 1 Drop EACHEYE QHS 06/03/16 Reported Pantoprazole Sodium (Pantoprazole Sodium) 40 Mg Tablet. 40 Mg PO DAILY 05/09/16 Reported Sensipar (Cinacalcet Hcl) 30 Mg Tablet 30 Mg PO DAILYWLUN 02/25/16 Reported Renvela (Sevelamer Carbonate) 800 Mg Tablet 1,600 Mg PO TIDWMEALS 02/25/16 Reported Nephro-Elsa Tablet (Folic Acid/Vitamin B Comp W-C) 0.8 Mg Tablet 1 Tab PO DAILY 02/25/16 Reported Nasonex (Mometasone Furoate) 17 Gm [place].pump 2 Sprays NS DAILY 02/25/16 Reported Carafate (Sucralfate) 1 Gm Tablet 1 Gm PO TIDAC 02/25/16 Reported Impression . IMPRESSION: 1. Acute respiratory failure secondary to acute diastolic congestive heart failure, valvular disease, 2. Acute diastolic congestive heart failure. 3. Moderate aortic stenosis, moderate mitral stenosis. 4. End-stage renal disease, on hemodialysis. 5. Obstructive sleep apnea-hypopnea syndrome, untreated with CPAP intolerance. 6. Obesity. 7. End-stage renal disease, on hemodialysis. 8. Hypertension. 9. Diabetes mellitus. 10. SARS-CoV-2 negative 11. DONA Plan . Discharge home per PCP Patient has sleep study nontolerant to CPAP BERENICE RAMIREZ MD Apr 10, 2020 12:26
[2020-04-10] MEDS: CINACALCET HCL 30 MG TABLET PO SCH (13:02)
[2020-04-10 15:10] VITALS: BP 113/47
--- NOTE | 2020-04-10 15:49 | NUR ---
Discharge Note: EMERALD AMI [address] Discharge instructions and discharge home medications reviewed with Patient and a copy given. All questions have been answered and understanding verbalized. The following instructions and handouts were given: Rx for Midodrin, follow up instructions Discontinued lines and drains: 20 gauge left AC, tip intact. patient tolerated well. Patient discharged to home with self care via family.
--- NOTE | 2020-04-10 17:14 | NUR ---
SW following. Spoke with RN and reviewed chart. PT recommendation is for HH. Pt to discharge home today. SW spoke with pt and pt refusing HH at discharge again today. Pt to discharge home on room air and oral medications with family and resumption of out-patient dialysis on MWF at [facility], , (fax). No further SW needs at this time.
--- NOTE | 2020-04-17 10:04 | PDOC ---
Provider Note Provider Note Discharge summary dictated.#[id number]. Justicifation of Admission Dx: Justifications for Admission: Justification of Admission Dx: Yes Chronic Renal Failure: Other (hypoxia) YARY FAIRCHILD MD Apr 17, 2020 10:04
--- NOTE | 2020-04-17 11:10 | DS ---
DATE OF DISCHARGE: 04/10/2020 REASON FOR ADMISSION TO THE HOSPITAL: Short of breath, diastolic heart failure, end-stage renal disease. CONSULTATIONS: Dr. Hwang, Cardiology; Dr. Coombs, Nephrology; Dr. Avila, Pulmonology. PROCEDURES DONE: 1. CT angiogram of the chest. 2. Dialysis. HOSPITAL COURSE: The patient is a 74-year-old female. The patient has a history of diastolic heart failure, end-stage renal disease, pulmonary hypertension and the patient was short of breath, was dialyzed. The patient had a CT angiogram of the chest negative for PE, had old SVC thrombosis from previous dialysis catheters and she also has a moderate aortic stenosis, pulmonary hypertension, severe and the patient did improve after dialysis after couple of days in the hospital and she was discharged. Seen by Cardiology, Pulmonology and Renal. No new recommendations. FINAL DIAGNOSES: 1. Shortness of breath secondary to fluid overload. 2. Chronic diastolic heart function, acute on chronic. 3. History of pulmonary hypertension. 4. Moderate aortic stenosis. 5. 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 6. End-stage renal disease, on dialysis. Continue dialysis. YARY FAIRCHILD MD DR: SAM/kailee JOB#: [id number] / [id number]
== END 2020-04-10 13:00 | disposition home or self-care (01) | DRG 291 ==
LOC: ER 14:06 → 6 SOUTH 22:02
PROVIDERS: ADMIT Internal Medicine; ATTEND Internal Medicine
PROC: 5A1D70Z Performance of Urinary Filtration, Intermittent, Less than 6 Hours Per Day (ICD-10-PCS; principal; 2020-04-09)
DX: I13.2 Hypertensive heart and chronic kidney disease with heart failure and with stage 5 chronic kidney disease, or end stage renal disease (principal); I50.33 Acute on chronic diastolic (congestive) heart failure; J96.21 Acute and chronic respiratory failure with hypoxia; N18.6 End stage renal disease; I87.1 Compression of vein; I82.211 Chronic embolism and thrombosis of superior vena cava; Z96.653 Presence of artificial knee joint, bilateral; G47.33 Obstructive sleep apnea (adult) (pediatric); E11.22 Type 2 diabetes mellitus with diabetic chronic kidney disease; I08.0 Rheumatic disorders of both mitral and aortic valves; J44.9 Chronic obstructive pulmonary disease, unspecified; F32.9 Major depressive disorder, single episode, unspecified; F41.9 Anxiety disorder, unspecified; K21.9 Gastro-esophageal reflux disease without esophagitis; I27.20 Pulmonary hypertension, unspecified; E78.5 Hyperlipidemia, unspecified; H40.9 Unspecified glaucoma; D64.9 Anemia, unspecified; Z20.828 Contact with and (suspected) exposure to other viral communicable diseases; E66.9 Obesity, unspecified; Z68.28 Body mass index [BMI] 28.0-28.9, adult; Z99.2 Dependence on renal dialysis; Z98.42 Cataract extraction status, left eye; Z98.41 Cataract extraction status, right eye; Z88.5 Allergy status to narcotic agent; Z88.8 Allergy status to other drugs, medicaments and biological substances; Z82.49 Family history of ischemic heart disease and other diseases of the circulatory system
CPT/HCPCS: 36415; 71045; 71275; 80048; 80053; 80076; 82962; 83690; 83880; 84484; 85025; 93005; Q9967; 97535-GO; 99285-25; G0378; U0003-CS

== ENCOUNTER 2020-04-18 12:22 | Inpatient (IN) | payer MEDICARE, BC ==
[~2020-04-18] VITALS: Ht 167.6 cm; Wt 173.5 kg
[~2020-04-18 12:22] MED LIST changes: +ATOR40TA59 PO; +DICL100G28 TP; +FLUT16SP NS; +LOSA25TA12 PO; +MIDO5TAB4 PO
--- NOTE | 2020-04-18 13:30 | RAD ---
CHEST AP ONLY History: Reason: SHORT OF BREATH / Spl. Instructions: / History: Comparison: April 06, [address] April 06, 2020 Findings: Low lung volumes. Mild bibasilar linear atelectasis. No consolidation. No pleural effusion. No pneumothorax. Vascular calcifications noted. Impression: 1. Low lung volumes with mild bibasilar atelectasis. Electronically signed by: Shyam Neves DO (04/18/2020 1:27 PM) [facility]
[2020-04-18 13:54] LABS: BASO % 1 % (0-3); EOS # 0.1 x10^3/uL (0.0-0.7); EOS % 2 % (0-3); HEMATOCRIT 35.8 % (36.0-47.0); HEMOGLOBIN 11.8 g/dL (12.0-15.5); LYMPH # 1.1 x10^3/uL (1.0-4.8); LYMPH % 23 % (24-48); MEAN CORPUSCULAR HEMOGLOBIN 32 pg (25-35); MEAN CORPUSCULAR HGB CONC 33 g/dL (31-37); MEAN CORPUSCULAR VOLUME 97 fL (79-100); MONO # 0.4 x10^3/uL (0.0-1.1); MONO % 7 % (0-9); NEUT # 3.3 x10^3/uL (1.8-7.7); NEUT % 67 % (31-73); PLATELET COUNT 150 x10^3/uL (140-400); RED CELL DISTRIBUTION WIDTH 14.7 % (11.5-14.5); WHITE BLOOD COUNT 4.9 x10^3/uL (4.0-11.0)
[2020-04-18 14:04] LABS: CALCIUM 9.1 mg/dL (8.5-10.1); CREATININE 7.9 mg/dL (0.6-1.0); GFR 6.1; POTASSIUM 5.2 mmol/L (3.5-5.1); PROTHROMBIN TIME PATIENT 13.7 SEC (11.7-14.0)
[2020-04-18 14:07] LABS: ALBUMIN 3.7 g/dL (3.4-5.0); ALBUMIN/GLOBULIN RATIO 0.9 (1.0-1.7); TOTAL BILIRUBIN 0.4 mg/dL (0.2-1.0); TOTAL PROTEIN 7.8 g/dL (6.4-8.2)
--- NOTE | 2020-04-18 14:32 | RAD ---
CT HEAD WO CONTRAST Date: 04/18/2020 12:57 PM Clinical Indication: Reason: ALTERED MENTAL STATUS / Spl. Instructions: / History: Comparison: 04/17/2017. Technique: 5 mm axial tomographic images were obtained of the head without contrast. These were viewed on brain and bone windows. One or more of the following dose reduction techniques were utilized: Automated exposure control (AEC), Adjustment of mA and/or kV according to patient size, Use of iterative reconstruction technique such as ASiR, CT scan done according to ALARA and image gently/image wisely Findings: Mild generalized cerebral and cerebellar volume loss. Mild nonspecific periventricular hypoattenuation, most commonly seen with chronic small vessel ischemic disease. Calcified atherosclerosis of the bilateral cavernous and paraclinoid internal carotid arteries and intracranial vertebral arteries. No intra- or extra-axial mass or fluid collection. No acute hemorrhage. The ventricles are normal in size, shape, and morphology. The hall-white matter junction is normal. The subarachnoid cisterns are patent. The visualized paranasal sinuses are normal. Stable punctate calcification near the left orbital apex. The mastoid air cells are clear. The server systems administrator topogram shows no lytic lesion or fracture. Impression: No acute intracranial process. Mild cerebral volume loss. Mild chronic small vessel ischemic disease. Electronically signed by: Jon Temple MD (04/18/2020 2:28 PM) [id number]
--- NOTE | 2020-04-18 15:01 | PHYS DOC ---
Past Medical History Past Medical History: Anemia, Hyperthyroid, Hypotension, Renal Failure Additional Past Medical Histor: ESRF, hemodialysis Past Surgical History: Other Additional Past Surgical Histo: Bx cataracts, R Carpal, R arm fistula, Axillary/Head tumor, Bx knee, Smoking Status: Never Smoker Alcohol Use: None Drug Use: None General Adult EDM: Chief Complaint: FATIGUE HPI: HPI: Patient is a 74 year old female was sent to the emergency department by ambulance from her dialysis clinic for altered mental status. Patient did not complete her dialysis today related to her altered mental status at the dialysis clinic. Patient states that she feels terrible, states that she cannot explain in what way she is feels terrible, patient states she just feels some kind of way. Patient denies shortness of breath cough or chest pain. Patient denies any abdominal pain, nausea, vomiting, diarrhea, or constipation. Patient denies any nasal congestion, patient states that she does not make urine, states that she has no back pain or pain in her joints. Patient denies any skin rashes, headaches, focal weaknesses, or sensory changes. Patient denies any swelling of her glands. Patient denies any recent life changes depressions anxieties homi cidal or suicidal ideation. Patient denies COVID-19 exposure, also denies concerns for the COVID-19 virus. Patient states that she feels she does not need to be tested for the COVID-19 virus. Review of Systems: Review of Systems: Constitutional: Denies fever or chills. Denies exposure to COVID-19 virus, denies concern for COVID-19 virus. Patient states she feels bad, states that she feels some kind of way. Eyes: Denies change in visual acuity. HENT: Denies nasal congestion or sore throat. Respiratory: Denies cough or shortness of breath. Cardiovascular: Denies chest pain or edema. GI: Denies abdominal pain, nausea, vomiting, bloody stools or diarrhea. : Denies dysuria. Musculoskeletal: Denies back pain or joint pain. Integument: Denies rash. Neurologic: Denies headache, focal weakness or sensory changes. Denies diz ziness. Endocrine: Denies polyuria or polydipsia. Lymphatic: Denies swollen glands. Psychiatric: Denies depression or anxiety. Denies homicidal or suicidal ideations. Heart Score: Risk Factors: Risk Factors: DM, Current or recent (<one month) smoker, HTN, HLP, family history of CAD, obesity. Risk Scores: Score 0 - 3: 2.5% MACE over next 6 weeks - Discharge Home Score 4 - 6: 20.3% MACE over next 6 weeks - Admit for Clinical Observation Score 7 - 10: 72.7% MACE over next 6 weeks - Early Invasive Strategies Allergies: Allergies: Allergies Coded Allergies Type Severity Reaction Last Updated Verified chlorhexidine Allergy Intermediate Rash 09/01/18 Yes Opioids - Morphine Analogues Adverse Reaction Intermediate Nausea and Vomiting 09/01/18 Yes Opioids-Meperidine and Related Adverse Reaction Intermediate Nausea and Vomiting 09/01/18 Yes Opioids-Methadone and Related Adverse Reaction Intermediate Nausea and Vomiting 09/01/18 Yes codeine Adverse Reaction Intermediate Nausea and Vomiting 09/01/18 Yes Physical Exam: PE: Constitutional: Well developed, well nourished, no acute distress, non-toxic appearance. Patient asleep upon entering room for physical examination, however easily arousable to verbal stimuli, answers questions slowly but appropriately. HENT: Normocephalic, atraumatic, bilateral external ears normal, oropharynx moist, no oral exudates, nose normal. Eyes: PERRLA, EOMI, conjunctiva normal, no discharge. Pupils 5 mm. Neck: Normal range of motion, no tenderness, supple, no stridor. Cardiovascular:Heart rate regular rhythm, no murmur Lungs & Thorax: Bilateral breath sounds diminished bilateral bases, otherwise clear to auscultation, no other adventitious lung sounds noted. Abdomen: Bowel sounds normal, soft, no tenderness, no masses, no pulsatile masses. Skin: Warm, dry, no erythema, no rash. Back: No tenderness, no CVA tenderness. Extremities: No tenderness, no cyanosis, no clubbing, ROM intact, no edema. Neurologic: Alert and oriented X 3, normal motor function, normal sensory function, no focal deficits noted. Psychologic: Affect normal, judgement normal, mood normal. Current Patient Data: Labs: Laboratory Tests Test 04/18/20 13:35 White Blood Count 4.9 x10^3/uL (4.0-11.0) Red Blood Count 3.70 x10^6/uL (3.50-5.40) Hemoglobin 11.8 g/dL (12.0-15.5) L Hematocrit 35.8 % (36.0-47.0) L Mean Corpuscular Volume 97 fL (79-100) Mean Corpuscular Hemoglobin 32 pg (25-35) Mean Corpuscular Hemoglobin Concent 33 g/dL (31-37) Red Cell Distribution Width 14.7 % (11.5-14.5) H Platelet Count 150 x10^3/uL (140-400) Neutrophils (%) (Auto) 67 % (31-73) Lymphocytes (%) (Auto) 23 % (24-48) L Monocytes (%) (Auto) 7 % (0-9) Eosinophils (%) (Auto) 2 % (0-3) Basophils (%) (Auto) 1 % (0-3) Neutrophils # (Auto) 3.3 x10^3/uL (1.8-7.7) Lymphocytes # (Auto) 1.1 x10^3/uL (1.0-4.8) Monocytes # (Auto) 0.4 x10^3/uL (0.0-1.1) Eosinophils # (Auto) 0.1 x10^3/uL (0.0-0.7) Basophils # (Auto) 0.0 x10^3/uL (0.0-0.2) Prothrombin Time 13.7 SEC (11.7-14.0) Prothrombin Time INR 1.1 (0.8-1.1) Activated Partial Thromboplast Time 34 SEC (24-38) Sodium Level 138 mmol/L (136-145) Potassium Level 5.2 mmol/L (3.5-5.1) H Chloride Level 101 mmol/L (98-107) Carbon Dioxide Level 21 mmol/L (21-32) Anion Gap 16 (6-14) H Blood Urea Nitrogen 54 mg/dL (7-20) H Creatinine 7.9 mg/dL (0.6-1.0) H Estimated GFR (Cockcroft-Gault) 6.1 BUN/Creatinine Ratio 7 (6-20) Glucose Level 86 mg/dL (70-99) Calcium Level 9.1 mg/dL (8.5-10.1) Total Bilirubin 0.4 mg/dL (0.2-1.0) Aspartate Amino Transferase (AST) 14 U/L (15-37) L Alanine Aminotransferase (ALT) 13 U/L (14-59) L Alkaline Phosphatase 287 U/L (46-116) H Ammonia 17 mcmol/L (11-34) JK-Dqy-Y-Type Natriuretic Peptide 3567 pg/mL (0-124) H Total Protein 7.8 g/dL (6.4-8.2) Albumin 3.7 g/dL (3.4-5.0) Albumin/Globulin Ratio 0.9 (1.0-1.7) L Laboratory Tests 04/18/20 13:35 Laboratory Tests 04/18/20 13:35 Vital Signs: Vital Signs Date Time Temp Pulse Resp B/P (MAP) Pulse Ox O2 Delivery O2 Flow Rate FiO2 04/18/20 12:22 98.6 55 16 117/80 (92) 99 Room Air 98.6 EKG: EKG: EKG performed at 1239 by ED nursing staff, interpreted by ED attending Dr. Chiu, normal sinus rhythm without ectopy, widened QRS, no STEMI concerns no ACS concerns. Radiology/Procedures: Radiology/Procedures: PROCEDURE: CHEST AP ONLY CHEST AP ONLY History: Reason: SHORT OF BREATH / Spl. Instructions: / History: Comparison: April 06, [address] April 06, 2020 Findings: Low lung volumes. Mild bibasilar linear atelectasis. No consolidation. No pleural effusion. No pneumothorax. Vascular calcifications noted. Impression: 1. Low lung volumes with mild bibasilar atelectasis. Electronically signed by: Shyam Neves DO (04/18/2020 1:27 PM) [facility] DICTATED and SIGNED BY: SHYAM NEVES DO DATE: 04/18/20 1327 Course & Med Decision Making: Course & Med Decision Making Pertinent Labs and Imaging studies reviewed. (See chart for details) 74-year-old female brought to the emergency department from her dialysis clinic via ambulance for altered mental status. Vital signs reviewed, labs ordered, imaging ordered. CT head not concerning for acute process, labs potassium 5.2, BNP 3567. Reviewed case with Dr. FAIRCHILD who agreed to accept admission for the diagnosis of altered mental status to the telemetry unit whom also requested that Dr. METZ be consulted for hemodialysis treatment. Reexamination of patient revealed no changes from initial exam, patient was amendable for admission to the unit, patient had no further questions or concerns. Dragon Disclaimer: Dragon Disclaimer: This electronic medical record was generated, in whole or in part, using a voice recognition dictation system. Departure Departure Impression: Primary Impression: Altered mental status Qualified Codes: R41.82 - Altered mental status, unspecified Additional Impressions: Elevated brain natriuretic peptide (BNP) level Serum potassium elevated Disposition: ADMITTED INPATIENT Admitting Physician: Yasir Fairchild Condition: GUARDED Referrals: YASIR FAIRCHILD MD (PCP) Justicifation of Admission Dx: Justifications for Admission: Justification of Admission Dx: Yes Chronic Renal Failure: Other Comments: Altered mental status, elevated BNP, elevated serum potassium. STEFAN BISHOP APRN Apr 18, 2020 15:01
--- NOTE | 2020-04-18 19:19 | EKG ---
[facility] [address] [place] [address] Test Date: 2020-04-18 Test Time: 12:39:11 Pat Name: EMERALD MAI Department: Room: Gender: F [employer] Director: : [id number] Requested By: STEFAN BISHOP Order Number: [id number] Reading MD: Measurements Intervals Gamaliel Rate: 58 P: MI: QRS: 14 QRSD: 112 T: 75 QT: 464 QTc: 459 Interpretive Statements SINUS BRADYCARDIA T ABNORMALITY IN ANTERIOR LEADS LATERAL LEADS ABNORMAL ECG RI6.01 No previous ECG available for comparison
[2020-04-18 21:00] VITALS: BP 126/74
[2020-04-18] MEDS ORDERED: AMLO5TAB10 PO (22:19)
[2020-04-18] MEDS ORDERED: ONDANSETRON ODT 4 MG TAB.RAPDIS. PO PRN ×2 (22:30→22:38)
[2020-04-18 22:50] VITALS: BP 117/55
[2020-04-18] MEDS: TIMOLOL 0.5% OPHTH SOLUTION 5ML BOTTLE. OU SCH (23:00)
[2020-04-18] MEDS: LATANOPROST 0.005% OPHTH SOLUTION 2.5ML BOTTLE. OU SCH (23:15)
[2020-04-18] MEDS: BRIMONIDINE 0.2% OPHTH SOLUTION 5ML BOTTLE. OU SCH (23:15)
[2020-04-18] MEDS: GABAPENTIN 100 MG CAPSULE. PO SCH (23:16)
[2020-04-18] MEDS: ZOLPIDEM 5 MG TABLET. PO PRN (23:16)
[2020-04-18] MEDS: ATORVASTATIN CALCIUM 40 MG TABLET. PO SCH (23:16)
[2020-04-18] MEDS: CHOLECALCIFEROL (VITAMIN D3) 1,000 UNIT TABLET PO SCH (23:16)
[2020-04-18] MEDS: DICLOFENAC SODIUM 1% TOPICAL GEL 100GM TUBE. TP PRN (23:16)
[2020-04-19 02:42] VITALS: BP 141/56
[2020-04-19 07:00] VITALS: BP 139/53
[2020-04-19] MEDS: ISOSORBIDE MONONITRATE ER 30 MG TAB.ER.24H PO SCH (08:00)
[2020-04-19] MEDS: MIDODRINE 5 MG TABLET PO SCH ×2 (08:00→14:01)
[2020-04-19] MEDS: SUCRALFATE 1 GM TABLET. PO SCH ×3 (08:07→17:10)
[2020-04-19] MEDS: METOCLOPRAMIDE 5 MG TABLET. PO SCH ×4 (08:07→20:33)
[2020-04-19] MEDS: SEVELAMER CARBONATE 800 MG TABLET. PO SCH ×3 (08:07→17:10)
[2020-04-19] MEDS: PANTOPRAZOLE 40 MG TABLET.DR. PO SCH (08:07)
[2020-04-19] MEDS: CHOLECALCIFEROL (VITAMIN D3) 1,000 UNIT TABLET PO SCH ×2 (08:07→20:32)
[2020-04-19] MEDS: FOLIC/VIT B COMP W-C (RENAL) TABLET. PO SCH (08:07)
[2020-04-19] MEDS: ASPIRIN ENTERIC COATED 81 MG TABLET.DR. PO SCH (08:08)
[2020-04-19] MEDS: BRIMONIDINE 0.2% OPHTH SOLUTION 5ML BOTTLE. OU SCH ×2 (08:08→20:35)
[2020-04-19] MEDS: FLUTICASONE 50MCG/NASAL SPRAY 16GM BOTTLE. NS SCH (08:08)
[2020-04-19] MEDS: TIMOLOL 0.5% OPHTH SOLUTION 5ML BOTTLE. OU SCH ×2 (08:09→20:38)
[2020-04-19] MEDS ORDERED: MOMETASONE FUROATE NS SCH (09:00)
[2020-04-19] MEDS ORDERED: IV NORMAL SALINE 1000ML BAG 1,000 ML IV PRN ×2 (09:37)
[2020-04-19] MEDS ORDERED: DIALYSIS PATIENT. MC PRN ×2 (09:45)
[2020-04-19] MEDS: CINACALCET HCL 30 MG TABLET PO SCH (11:59)
--- NOTE | 2020-04-19 12:39 | NUR ---
SS following for discharge planning. SS reviewed pt chart and discussed with pt RN. Pt is from home and is currently on room air. Pt has outpatient dialysis at [facility], , , Thursday, Thursday, and Thursday. SS will continue to follow for discharge planning.
--- NOTE | 2020-04-19 12:55 | PDOC2 ---
CONSULT Date of Consult Date of Consult DATE: 04/19/20 TIME: 12:51 Reason for Consult Reason for Consult: ESRD Referring Physician Referring Physician: DEVORAH Identification/Chief Complaint Chief Complaint CONFUSION Source Source: Chart review History of Present Illness Reason for Visit: THIS IS A 74 YR OLD WITH CONFUSION. BROUGHT IN FROM HD UNIT YESTERDAY. DID NOT FINISH HER TX. HAS OP HD ON MWF. K OF 5.2 TODAY. DID NOT REACH UF GOAL YESTERDAY. LABS ARE C/W ESRD. ESRD DUE TO HTN. Past Medical History Cardiovascular: CHF, HTN, Pulmonary hypertension Pulmonary: COPD CENTRAL NERVOUS SYSTEM: Other GI: GERD, Gastritis Heme/Onc: Anemia NOS Psych: Anxiety, Depression Renal/: Chronic renal failure, Other Endocrine: Hyperparathyroidism Past Surgical History Past Surgical History: Cataract Removal, Total knee replacement, Other Family History Family History: Coronary Artery Disease Social History ALCOHOL: none Drugs: None Lives: with Family Current Problem List Problem List Problems Medical Problems: (1) Altered mental status Status: Acute (2) Elevated brain natriuretic peptide (BNP) level Status: Acute (3) Serum potassium elevated Status: Acute Current Medications Current Medications Current Medications Aspirin (Ecotrin) 81 mg DAILYWBKFT PO Last administered on 04/19/20at 08:08; Start 04/19/20 at 08:00 Atorvastatin Calcium (Lipitor) 40 mg HS PO Last administered on 04/18/20at 23:16; Start 04/18/20 at 23:00 Vitamin D (Vitamin D3) 2,000 unit BID PO Last administered on 04/19/20at 08:07; Start 04/18/20 at 23:00 Cinacalcet (Sensipar) 30 mg DAILYWLUN PO ; Start 04/19/20 at 12:00 Diclofenac Sodium (Voltaren) 1 lisbeth PRN QID PRN TP MUSCLE PAIN Last administered on 04/18/20at 23:16; Start 04/18/20 at 22:30 Fluticasone Propionate (Flonase) 1 spray DAILY NS Last administered on 04/19/20at 08:08; Start 04/19/20 at 09:00 Vitamin B Complex/ Vitamin C (Evelyn-Elsa) 1 tab DAILY PO Last administered on 04/19/20at 08:07; Start 04/19/20 at 09:00 Gabapentin (Neurontin) 100 mg BID PO Last administered on 04/18/20 23:16; Start 04/18/20 at 23:00 Isosorbide Mononitrate (Imdur) 30 mg DAILY08 PO ; Start 04/19/20 at 08:00 Latanoprost (Xalatan) 1 drop QHS OU Last administered on 04/18/20at 23:15; Start 04/18/20 at 23:00 Metoclopramide HCl (Reglan) 2.5 mg QIDACHS PO Last administered on 04/19/20at 08:07; Start 04/19/20 at 07:30 Midodrine (Proamatine) 5 mg DAILYWBKFT PO ; Start 04/19/20 at 08:00 Pantoprazole Sodium (Protonix) 40 mg DAILYAC PO Last administered on 04/19/20at 08:07; Start 04/19/20 at 07:30 Sevelamer Carbonate (Renvela) 1,600 mg TIDWMEALS PO Last administered on 04/19/20 08:07; Start 04/19/20 at 08:00 Sucralfate (Carafate) 1 gm TIDAC PO Last administered on 04/19/20 08:07; Start 04/19/20 at 07:30 Brimonidine Tartrate (Alphagan) 1 drop BID OU Last administered on 04/19/20 08:08; Start 04/18/20 at 23:00 Non-Formulary Medication (Mometasone Furoate (Nasonex)) 2 sprays DAILY NS ; Start 04/19/20 at 09:00; Status UNV Ondansetron HCl (Zofran Odt) 4 mg PRN BID PRN PO NAUSEA/VOMITING 1ST CHOICE; Start 04/18/20 at 22:30; Stop 04/18/20 at 22:38; Status DC Timolol Maleate (Timoptic 0.5% [facility]) 1 drop BID OU Last administered on 04/19/20at 08:09; Start 04/18/20 at 23:00 Ondansetron HCl (Zofran Odt) 4 mg PRN BID PRN PO NAUSEA/VOMITING 1ST CHOICE; Start 04/18/20 at 22:38 Zolpidem Tartrate (Ambien) 5 mg PRN QHS PRN PO INSOMNIA Last administered on 7/29/20at 23:16; Start 04/18/20 at 22:45 Sodium Chloride 1,000 ml @ 1,000 mls/hr Q1H PRN IV hypotension; Start 04/19/20 at 09:37; Stop 04/19/20 at 15:36 Sodium Chloride 1,000 ml @ 400 mls/hr Q2H30M PRN IV PATENCY; Start 04/19/20 at 09:37; Stop 04/19/20 at 21:36 Info (PHARMACY MONITORING -- do not chart) 1 each PRN DAILY PRN MC SEE COMMENTS; Start 04/19/20 at 09:45; Status UNV Info (PHARMACY MONITORING -- do not chart) 1 each PRN DAILY PRN MC SEE COMMENTS; Start 04/19/20 at 09:45 Active Scripts Active Midodrine Hcl 5 Mg Tablet 5 Mg PO DAILY 30 Days Reglan (Metoclopramide Hcl) 10 Mg Tablet 1 Tab PO QID Isosorbide Mononitrate Er (Isosorbide Mononitrate) 30 Mg Tab.er.24h 30 Mg PO DAILY08 30 Days Aspirin Ec (Aspirin) 81 Mg Tablet. 81 Mg PO DAILYWBKFT 30 Days Reported Amlodipine Besylate 5 Mg Tablet 5 Mg PO DAILY Atorvastatin Calcium 40 Mg Tablet 40 Mg PO HS Fluticasone Propionate Nasal [place] (Fluticasone Propionate) 16 Gm [place].susp 1 [place] NS DAILY Diclofenac Sodium 100 Gm Gel..gram. 1 Lisbeth TP PRN QID PRN Ondansetron Hcl 8 Mg Tablet 1 Tab PO PRN BID PRN Gabapentin 100 Mg Capsule 100 Mg PO DAILY MDD 200 Combigan Eye Drops (Brimonidine Tartrate/Timolol) 5 Ml Drops 5 Ml OP BID Hydrocodone-Acetamin 5-325 mg (Hydrocodone/Acetaminophen) 1 Each Tablet 1 Each PO PRN Q4HRS PRN Vitamin D3 (Cholecalciferol (Vitamin D3)) 1,000 Unit Tablet 2 Tab PO BID Zolpidem Tartrate 5 Mg Tablet 5 Mg PO PRN QHS PRN Latanoprost 2.5 Ml Drops 1 Drop EACHEYE QHS Pantoprazole Sodium (Pantoprazole Sodium) 40 Mg Tablet. 40 Mg PO DAILY Sensipar (Cinacalcet Hcl) 30 Mg Tablet 30 Mg PO DAILYWLUN Renvela (Sevelamer Carbonate) 800 Mg Tablet 1,600 Mg PO TIDWMEALS Nephro-Elsa Tablet (Folic Acid/Vitamin B Comp W-C) 0.8 Mg Tablet 1 Tab PO DAILY Nasonex (Mometasone Furoate) 17 Gm [place].pump 2 Sprays NS DAILY Carafate (Sucralfate) 1 Gm Tablet 1 Gm PO TIDAC Allergies Allergies: Coded Allergies: chlorhexidine (Verified Allergy, Intermediate, Rash, 09/01/18) Opioids - Morphine Analogues (Verified Adverse Reaction, Intermediate, Nausea and Vomiting, 09/01/18) Opioids-Meperidine and Related (Verified Adverse Reaction, Intermediate, Nausea and Vomiting, 09/01/18) Opioids-Methadone and Related (Verified Adverse Reaction, Intermediate, Nausea and Vomiting, 09/01/18) codeine (Verified Adverse Reaction, Intermediate, Nausea and Vomiting, 09/01/18) ROS Review of System CONFUSED Physical Exam General: Alert, Cooperative, No acute distress HEENT: Atraumatic, PERRLA Lungs: Clear to auscultation Heart: Regular rate Abdomen: Normal bowel sounds, Soft, No tenderness Extremities: No cyanosis Neuro: Other (CONFUSED) Psych/Mental Status: Other (CONFUSED) MUSCULOSKELETAL: No deformity, No swelling Vitals VITALS Vital Signs Date Time Temp Pulse Resp B/P (MAP) Pulse Ox O2 Delivery O2 Flow Rate FiO2 04/19/20 08:00 56 139/53 04/19/20 08:00 Room Air 04/19/20 07:00 97.6 14 100 97.6 Labs Labs Laboratory Tests Test 04/18/20 13:35 White Blood Count 4.9 x10^3/uL (4.0-11.0) Red Blood Count 3.70 x10^6/uL (3.50-5.40) Hemoglobin 11.8 g/dL (12.0-15.5) Hematocrit 35.8 % (36.0-47.0) Mean Corpuscular Volume 97 fL (79-100) Mean Corpuscular Hemoglobin 32 pg (25-35) Mean Corpuscular Hemoglobin Concent 33 g/dL (31-37) Red Cell Distribution Width 14.7 % (11.5-14.5) Platelet Count 150 x10^3/uL (140-400) Neutrophils (%) (Auto) 67 % (31-73) Lymphocytes (%) (Auto) 23 % (24-48) Monocytes (%) (Auto) 7 % (0-9) Eosinophils (%) (Auto) 2 % (0-3) Basophils (%) (Auto) 1 % (0-3) Neutrophils # (Auto) 3.3 x10^3/uL (1.8-7.7) Lymphocytes # (Auto) 1.1 x10^3/uL (1.0-4.8) Monocytes # (Auto) 0.4 x10^3/uL (0.0-1.1) Eosinophils # (Auto) 0.1 x10^3/uL (0.0-0.7) Basophils # (Auto) 0.0 x10^3/uL (0.0-0.2) Prothrombin Time 13.7 SEC (11.7-14.0) Prothromb Time International Ratio 1.1 (0.8-1.1) Activated Partial Thromboplast Time 34 SEC (24-38) Sodium Level 138 mmol/L (136-145) Potassium Level 5.2 mmol/L (3.5-5.1) Chloride Level 101 mmol/L (98-107) Carbon Dioxide Level 21 mmol/L (21-32) Anion Gap 16 (6-14) Blood Urea Nitrogen 54 mg/dL (7-20) Creatinine 7.9 mg/dL (0.6-1.0) Estimated GFR (Cockcroft-Gault) 6.1 BUN/Creatinine Ratio 7 (6-20) Glucose Level 86 mg/dL (70-99) Calcium Level 9.1 mg/dL (8.5-10.1) Total Bilirubin 0.4 mg/dL (0.2-1.0) Aspartate Amino Transf (AST/SGOT) 14 U/L (15-37) Alanine Aminotransferase (ALT/SGPT) 13 U/L (14-59) Alkaline Phosphatase 287 U/L (46-116) Ammonia 17 mcmol/L (11-34) DJ-Wzv-V-Type Natriuretic Peptide 3567 pg/mL (0-124) Total Protein 7.8 g/dL (6.4-8.2) Albumin 3.7 g/dL (3.4-5.0) Albumin/Globulin Ratio 0.9 (1.0-1.7) Laboratory Tests Test 04/18/20 13:35 White Blood Count 4.9 x10^3/uL (4.0-11.0) Red Blood Count 3.70 x10^6/uL (3.50-5.40) Hemoglobin 11.8 g/dL (12.0-15.5) Hematocrit 35.8 % (36.0-47.0) Mean Corpuscular Volume 97 fL (79-100) Mean Corpuscular Hemoglobin 32 pg (25-35) Mean Corpuscular Hemoglobin Concent 33 g/dL (31-37) Red Cell Distribution Width 14.7 % (11.5-14.5) Platelet Count 150 x10^3/uL (140-400) Neutrophils (%) (Auto) 67 % (31-73) Lymphocytes (%) (Auto) 23 % (24-48) Monocytes (%) (Auto) 7 % (0-9) Eosinophils (%) (Auto) 2 % (0-3) Basophils (%) (Auto) 1 % (0-3) Neutrophils # (Auto) 3.3 x10^3/uL (1.8-7.7) Lymphocytes # (Auto) 1.1 x10^3/uL (1.0-4.8) Monocytes # (Auto) 0.4 x10^3/uL (0.0-1.1) Eosinophils # (Auto) 0.1 x10^3/uL (0.0-0.7) Basophils # (Auto) 0.0 x10^3/uL (0.0-0.2) Prothrombin Time 13.7 SEC (11.7-14.0) Prothromb Time International Ratio 1.1 (0.8-1.1) Activated Partial Thromboplast Time 34 SEC (24-38) Sodium Level 138 mmol/L (136-145) Potassium Level 5.2 mmol/L (3.5-5.1) Chloride Level 101 mmol/L (98-107) Carbon Dioxide Level 21 mmol/L (21-32) Anion Gap 16 (6-14) Blood Urea Nitrogen 54 mg/dL (7-20) Creatinine 7.9 mg/dL (0.6-1.0) Estimated GFR (Cockcroft-Gault) 6.1 BUN/Creatinine Ratio 7 (6-20) Glucose Level 86 mg/dL (70-99) Calcium Level 9.1 mg/dL (8.5-10.1) Total Bilirubin 0.4 mg/dL (0.2-1.0) Aspartate Amino Transf (AST/SGOT) 14 U/L (15-37) Alanine Aminotransferase (ALT/SGPT) 13 U/L (14-59) Alkaline Phosphatase 287 U/L (46-116) Ammonia 17 mcmol/L (11-34) OB-Kli-R-Type Natriuretic Peptide 3567 pg/mL (0-124) Total Protein 7.8 g/dL (6.4-8.2) Albumin 3.7 g/dL (3.4-5.0) Albumin/Globulin Ratio 0.9 (1.0-1.7) Assessment/Plan Assessment/Plan IMP HYPERKALEMIA LABILE HTN HX ESRD ANEMIA OF ESRD ENCEPHALOPATHY PLAN HD TODAY UF TO DW HD MWF SO AGAIN TOMORROW LOTUS NEEDED CONFUSION W/U WILL FOLLOW MARIFER METZ MD Apr 19, 2020 12:55
[2020-04-19] MEDS: GABAPENTIN 100 MG CAPSULE. PO SCH (14:00)
[2020-04-19 15:00] VITALS: BP 101/47
--- NOTE | 2020-04-19 15:58 | PDOC ---
Provider Note Provider Note Pt seen.H&P dictated.#[id number]. Justicifation of Admission Dx: Justifications for Admission: Justification of Admission Dx: Yes Chronic Renal Failure: Other YARY FAIRCHILD MD Apr 19, 2020 15:58
--- NOTE | 2020-04-19 17:27 | HP ---
ADMIT DATE: 04/18/2020 MEDICAL HISTORY AND PHYSICAL LOCATION: [facility]. REASON FOR ADMISSION TO THE HOSPITAL: Confusion. HISTORY OF PRESENT ILLNESS: The patient goes to dialysis. She was confused at the dialysis center yesterday, was brought to the Emergency Room. She did not finish her dialysis treatment, had a CT head, was negative. Laboratory data did not show much abnormality. Chest x-ray was negative for acute infiltration. No fever. The patient was admitted for further investigation and treatment to complete dialysis. The patient was seen by Nephrology, was dialyzed this morning, the patient's condition improved. PAST MEDICAL HISTORY: Has pulmonary hypertension, chronic kidney disease, chronic diastolic heart failure, COPD and also end-stage renal disease, on dialysis. She was dialyzed on Thursday, Thursday and Thursday. PAST SURGICAL HISTORY: The patient had a cardiac catheterization in the past, total knee replacement, cataract removal. She also had a mechanical fall, fracture of the skull at the orbit level. She had some surgery done for that. ALLERGIES: MORPHINE, DEMEROL, METHADONE, CODEINE, CHLORHEXIDINE. MEDICATIONS AT HOME: The patient is on aspirin 81 mg daily, atorvastatin 40 mg daily. She takes eyedrops, Combigan 1 drop twice a day for glaucoma, both eyes, vitamin D, Voltaren gel for the joints, Flonase daily, folic acid, Nephro-Elsa 1 daily, gabapentin 100 mg daily, isosorbide 30 mg daily, latanoprost eyedrops 1 at bedtime each eye, Reglan 10 mg 4 times a day, midodrine 5 mg daily, mometasone, Nasonex daily, Zofran for nausea, Protonix 40 mg daily, Renvela 800 mg daily, Carafate 1 gram daily. She is off pain medications. She is off blood pressure medicines. She is on Ambien 5 mg daily. PERSONAL HISTORY: Denies smoking, alcohol, or drug abuse. FAMILY HISTORY: Unremarkable. SOCIAL HISTORY: Lives at home with daughter, then goes to dialysis 3 times, she has a wheelchair level of activity. PHYSICAL EXAMINATION: GENERAL: The patient is not in distress, not able to make a conversation. VITAL SIGNS: Temperature 97, pulse 53, respirations 18, blood pressure 117/55, 97 on room air. HEENT: Head is atraumatic. Pupils equal. Oral cavity: No congestion. NECK: Supple. Thyroid not enlarged. JVD not elevated. CHEST: Symmetrical. CARDIOVASCULAR: S1, S2. LUNGS: Clear to auscultation. No wheezing. ABDOMEN: Soft, bowel sounds present, no mass palpable. EXTERNAL GENITALIA: No Holloway. RECTAL: Deferred. EXTREMITIES: No calf tenderness, no edema. Pulses 1+. NEUROLOGIC: Moving extremities. No focal deficits noted. LABORATORY DATA: Shows a white count of 5, hemoglobin 12, platelets 150. INR 1.1. Electrolytes are sodium 138, potassium 5.2, chloride 101, bicarbonate 21, BUN 54, creatinine 7.9, glucose 86. LFTs were normal. BNP 3567. Ammonia is 17. CT head, no acute process. Chest x-ray: Mild basilar atelectasis. FINAL IMPRESSION: 1. Mental status changes. 2. Encephalopathy. 3. Chronic kidney disease, on hemodialysis Thursday, Thursday, Thursday. 4. Chronic pulmonary hypertension, was hypertensive before, now hypotensive. 5. History of diabetes, diet controlled. 6. Neuropathy. PLAN: At this time, the patient is admitted to the hospital, seen by Nephrology, had a dialysis today. Condition improved. CT was negative. We will hold gabapentin and see how she does. She was taking Ambient for insomnia for long time. We will continue that. YARY FAIRCHILD MD DR: SAM/kailee JOB#: [id number] / [id number]
[2020-04-19 18:17] VITALS: BP 121/52
[2020-04-19] MEDS ORDERED: ACETAMINOPHEN 500 MG TABLET PO PRN (20:00)
[2020-04-19] MEDS: ATORVASTATIN CALCIUM 40 MG TABLET. PO SCH (20:33)
[2020-04-19] MEDS: DICLOFENAC SODIUM 1% TOPICAL GEL 100GM TUBE. TP PRN (20:33)
[2020-04-19] MEDS: LATANOPROST 0.005% OPHTH SOLUTION 2.5ML BOTTLE. OU SCH (20:35)
[2020-04-19] MEDS: ZOLPIDEM 5 MG TABLET. PO PRN (20:37)
[2020-04-19 22:27] VITALS: BP 101/39
[2020-04-20 03:29] VITALS: BP 141/40
--- NOTE | 2020-04-20 06:50 | NUR ---
Pt states with pain all over, more in hands and bilateral shoulders.
[2020-04-20 07:00] VITALS: BP 103/41
[2020-04-20] MEDS: ISOSORBIDE MONONITRATE ER 30 MG TAB.ER.24H PO SCH (08:00)
[2020-04-20] MEDS: SUCRALFATE 1 GM TABLET. PO SCH ×3 (08:29→17:29)
[2020-04-20] MEDS: SEVELAMER CARBONATE 800 MG TABLET. PO SCH ×3 (08:29→17:29)
[2020-04-20] MEDS: FOLIC/VIT B COMP W-C (RENAL) TABLET. PO SCH ×2 (08:29→12:07)
[2020-04-20] MEDS: PANTOPRAZOLE 40 MG TABLET.DR. PO SCH (08:29)
[2020-04-20] MEDS: MIDODRINE 5 MG TABLET PO SCH (08:30)
[2020-04-20] MEDS: METOCLOPRAMIDE 5 MG TABLET. PO SCH ×3 (08:32→17:29)
[2020-04-20] MEDS: BRIMONIDINE 0.2% OPHTH SOLUTION 5ML BOTTLE. OU SCH (08:34)
[2020-04-20] MEDS: FLUTICASONE 50MCG/NASAL SPRAY 16GM BOTTLE. NS SCH (08:34)
[2020-04-20] MEDS: TIMOLOL 0.5% OPHTH SOLUTION 5ML BOTTLE. OU SCH (08:35)
[2020-04-20] MEDS: DICLOFENAC SODIUM 1% TOPICAL GEL 100GM TUBE. TP PRN ×2 (08:38→17:30)
--- NOTE | 2020-04-20 10:00 | PDOC ---
PROGRESS NOTES Subjective Subjective feels good. Objective Objective Vital Signs Date Time Temp Pulse Resp B/P (MAP) Pulse Ox O2 Delivery O2 Flow Rate FiO2 04/20/20 08:30 64 103/41 04/20/20 08:00 Room Air 04/20/20 07:00 97.6 18 99 97.6 Intake and Output 04/20/20 07:00 Intake Total 350 ml Balance 350 ml Intake Oral 350 ml # Voids 2 Physical Exam Abdomen: Normal bowel sounds, Soft, No tenderness Heart: Regular rate Extremities: No cyanosis General: Alert, Cooperative, No acute distress HEENT: Atraumatic, PERRLA Lungs: Clear to auscultation MUSCULOSKELETAL: No deformity, No swelling Neuro: Normal speech, Other (CONFUSED) Psych/Mental Status: Mental status NL, Other (CONFUSED) Skin: No breakdown Diagnosis Problem List Problems Medical Problems: (1) Altered mental status Status: Acute (2) Elevated brain natriuretic peptide (BNP) level Status: Acute (3) Serum potassium elevated Status: Acute Assessment Assessment Problems Medical Problems: (1) Altered mental status Status: Acute (2) Elevated brain natriuretic peptide (BNP) level Status: Acute (3) Serum potassium elevated Status: Acute FINAL IMPRESSION: 1. Mental status changes. 2. Encephalopathy. 3. Chronic kidney disease, on hemodialysis Thursday, Thursday, Thursday. 4. Chronic pulmonary hypertension, was hypertensive before, now hypotensive. 5. History of diabetes, diet controlled. 6. Neuropathy. PLAN: At this time, the patient is admitted to the hospital, seen by Nephrology, had a dialysis today. Condition improved. CT was negative. We will hold gabapentin and see how she does. She was taking Ambient for insomnia for long time. We will continue that. Plan Plan of Care Problems Medical Problems: (1) Altered mental status Status: Acute (2) Elevated brain natriuretic peptide (BNP) level Status: Acute (3) Serum potassium elevated Status: Acute Comment Review of Relevant I have reviewed the following items dorina (where applicable) has been applied. Medications Current Medications Acetaminophen (Tylenol) 500 mg PRN Q6HRS PRN PO MILD PAIN / TEMP > 100.3'F Last administered on 04/19/20at 20:32; Start 04/19/20 at 20:00 Cinacalcet (Sensipar) 30 mg DAILYWLUN PO ; Start 04/19/20 at 12:00 Vitals/I & O Vital Sign - Last 24 Hours 04/19/20 04/19/20 04/19/20 04/19/20 14:01 15:00 18:17 20:01 Temp 97.9 98.1 97.9 98.1 Pulse 59 66 67 Resp 16 18 B/P (MAP) 101/29 101/47 (65) 121/52 (75) Pulse Ox 98 96 O2 Delivery Room Air Room Air Room Air 04/19/20 04/20/20 04/20/20 04/20/20 22:27 03:29 07:00 08:00 Temp 98.0 95.7 97.6 98.0 95.7 97.6 Pulse 57 54 64 Resp 16 16 18 B/P (MAP) 101/39 (59) 141/40 (73) 103/41 (61) Pulse Ox 100 98 99 O2 Delivery Room Air Room Air Room Air Room Air 04/20/20 08:30 Pulse 64 B/P (MAP) 103/41 Intake and Output 04/19/20 04/19/20 04/20/20 15:00 23:00 07:00 Intake Total 150 ml 200 ml Balance 150 ml 200 ml Justicifation of Admission Dx: Justifications for Admission: Justification of Admission Dx: Yes Chronic Renal Failure: Other YARY FAIRCHILD MD Apr 20, 2020 10:00
[2020-04-20] MEDS ORDERED: MAG HYDROX/ALUMINUM HYD/SIMETH 30 ML ORAL.SUSP PO PRN (10:15)
[2020-04-20 10:32] VITALS: BP 123/45
--- NOTE | 2020-04-20 11:05 | PDOC ---
Renal-Progress Notes Subjective Notes Notes NO NEW COMPLAINTS History of Present Illness Hx of present illness STABLE Vitals Vitals Vital Signs Date Time Temp Pulse Resp B/P (MAP) Pulse Ox O2 Delivery O2 Flow Rate FiO2 04/20/20 10:32 97.8 59 59 123/45 (71) 97 Room Air 97.8 Weight Weight [ ] I.O. Intake and Output Intake and Output 04/20/20 06:59 Intake Total 350 ml Balance 350 ml Intake Oral 350 ml # Voids 2 Review of Systems Constitutional: yes: weakness, alert Ears/Nose/Throat: Yes: no symptom reported Eyes: Yes: no symptom reported Pulmonary: Yes no symptom reported Cardiovascular: Yes no symptom reported Gastrointestional: Yes: constipation Genitourinary: Yes: no symptom reported Musculoskeletal: Yes: muscle stiffness Skin: Yes no symptom reported Psychiatric/Neurological: Yes: no symptom reported Endocrine: Yes: no symptom reported Physical Exam General Appearance: no apparent distress Skin: warm Respiratory: bilateral CTA Heart: S1S2 Abdomen: soft, bowel sounds present Genitourinary: bladder flat Extremities: pulses present Neurology: alert, oriented Assessment Assessment IMP HYPERKALEMIA-RESOLVED LABILE HTN HX ESRD ANEMIA OF ESRD ENCEPHALOPATHY-RESOLVED PLAN HD TODAY UF TO DW LOTUS NEEDED WILL FOLLOW MARIFER METZ MD Apr 20, 2020 11:04
[2020-04-20] MEDS: CINACALCET HCL 30 MG TABLET PO SCH (12:06)
[2020-04-20] MEDS: CHOLECALCIFEROL (VITAMIN D3) 1,000 UNIT TABLET PO SCH (12:07)
[2020-04-20] MEDS: ASPIRIN ENTERIC COATED 81 MG TABLET.DR. PO SCH (12:07)
[2020-04-20] MEDS ORDERED: SODIUM CHLORIDE 0.65% NASAL SPRAY 45ML BOTTLE. NS PRN (13:00)
[2020-04-20] MEDS ORDERED: diphenhydrAMINE 50 MG/ML VIAL IV PRN ×2 (14:00)
[2020-04-20] MEDS ORDERED: ALBUMIN HUMAN 25% 200 ML IV PRN (14:00)
[2020-04-20] MEDS ORDERED: DIALYSIS PATIENT. MC PRN (14:00)
[2020-04-20] MEDS ORDERED: IV NORMAL SALINE 1000ML BAG 1,000 ML IV PRN ×2 (14:00)
--- NOTE | 2020-04-20 14:07 | NUR ---
SS following up with discharge planning. Discharge order on the chart for home with self care. SS phoned and faxed clinical to [facility], , .
--- NOTE | 2020-04-20 14:20 | NUR ---
Patient in hemodialysis, will discharge after the procedure per MD order.
[2020-04-20 17:24] VITALS: BP 133/61
--- NOTE | 2020-04-20 18:41 | NUR ---
Discharge Note: EMERALD MAI [address] Discharge instructions and discharge home medications reviewed with patient and a copy given. All questions have been answered and understanding verbalized. The following instructions and handouts were given: Resume Hemodialysis as scheduled Watch out for altered mental status, severe body weakness, severe nause and vomiting. Follow up with PCP in a week Discontinued lines and drains: peripheral IVintact, patient tolerated removal, no complications noted Patient discharged to home with self-care via wheelchair accompanied by family member at 1842.
--- NOTE | 2020-04-23 08:24 | PDOC ---
Provider Note Provider Note Discharge summary dictated.#[id number]. Justicifation of Admission Dx: Justifications for Admission: Justification of Admission Dx: Yes Chronic Renal Failure: Other YARY FAIRCHILD MD Apr 23, 2020 08:24
--- NOTE | 2020-04-23 08:39 | DS ---
DATE OF DISCHARGE: 04/20/2020 REASON FOR ADMISSION TO THE HOSPITAL: Confusion, encephalopathy. The patient goes to dialysis. She was confused at the dialysis. PROCEDURES DONE: 1. CT head. 2. Dialysis. COMPLICATIONS NOTED: None. HOSPITAL COURSE: The patient is a 74-year-old female with history of chronic kidney disease, on dialysis. She also has chronic pulmonary hypertension, shortness of breath. The patient was having confusion when she went to dialysis, did not finish dialysis, was brought to the hospital, had a CT head, negative for any stroke. Chest x-ray was negative. The patient was given dialysis. Over the course of hospitalization, her mental status improved to baseline and she was discharged. It was thought she had encephalopathy and the Neurontin was discontinued. FINAL DIAGNOSES: 1. Encephalopathy improved ,?metabolic. 2. Confusion improved.. 3. End-stage renal disease on Dialysis, MEF,. 4. Chronic pulmonary hypertension. DISPOSITION: Home. Discontinue Neurontin and continue dialysis as outpatient Thursday, Thursday, and Thursday. YARY FAIRCHILD MD DR: SAM/kailee JOB#: [id number] / [id number] LIN
== END 2020-04-20 18:42 | disposition home or self-care (01) | DRG 70 ==
LOC: ER 12:22 → ED HOLD 16:05 → 2 SOUTH 17:45
PROVIDERS: ADMIT Internal Medicine; ATTEND Internal Medicine
PROC: 5A1D70Z Performance of Urinary Filtration, Intermittent, Less than 6 Hours Per Day (ICD-10-PCS; 2020-04-19)
PROC: 5A1D70Z Performance of Urinary Filtration, Intermittent, Less than 6 Hours Per Day (ICD-10-PCS; principal; 2020-04-20)
DX: G93.41 Metabolic encephalopathy (principal); N18.6 End stage renal disease; I13.2 Hypertensive heart and chronic kidney disease with heart failure and with stage 5 chronic kidney disease, or end stage renal disease; I50.32 Chronic diastolic (congestive) heart failure; J98.11 Atelectasis; E87.5 Hyperkalemia; D63.1 Anemia in chronic kidney disease; E11.22 Type 2 diabetes mellitus with diabetic chronic kidney disease; G62.9 Polyneuropathy, unspecified; I27.20 Pulmonary hypertension, unspecified; J44.9 Chronic obstructive pulmonary disease, unspecified; Z82.49 Family history of ischemic heart disease and other diseases of the circulatory system; Z96.659 Presence of unspecified artificial knee joint; Z99.2 Dependence on renal dialysis; E21.3 Hyperparathyroidism, unspecified; F32.9 Major depressive disorder, single episode, unspecified; F41.9 Anxiety disorder, unspecified; Z88.8 Allergy status to other drugs, medicaments and biological substances; Z79.899 Other long term (current) drug therapy
CPT/HCPCS: 36415; 70450; 71045; 80053; 82140; 83880; 85025; 85610; 85730; 93005; 99285; G0378

== ENCOUNTER 2020-05-07 12:05 | Inpatient (IN) | payer MEDICARE, BC ==
[~2020-05-07] VITALS: Ht 167.6 cm; Wt 77.6 kg
--- NOTE | 2020-05-07 12:48 | RAD ---
CT HEAD INDICATION: Altered mental status COMPARISON: 04/18/2020 Exposure: One or more of the following individualized dose reduction techniques were utilized for this examination: 1. Automated exposure control 2. Adjustment of the mA and/or kV according to patient size 3. Use of iterative reconstruction technique TECHNIQUE: 5 mm contiguous axial images were obtained from the skull base to the vertex in both bone and soft tissue algorithm. FINDINGS: Mild bilateral periventricular white matter hypodensities likely chronic small vessel ischemic disease. No evidence of acute intracranial hemorrhage. No extra-axial fluid collections. No mass effect or midline shift. Ventricular size is appropriate. Basal cisterns are patent. No fractures identified.Goldstein-white differentiation is preserved.Globes and orbits are within normal limits. Paranasal sinuses and mastoid air cells are clear. IMPRESSION: No acute intracranial findings. Electronically signed by: Odin Charles MD (05/07/2020 12:45 PM) [id number]
--- NOTE | 2020-05-07 12:54 | PHYS DOC ---
Past Medical History Past Medical History: Anemia, Hyperthyroid, Hypotension, Renal Failure Additional Past Medical Histor: ESRF, hemodialysis Past Surgical History: Other Additional Past Surgical Histo: Bx cataracts, R Carpal, R arm fistula, Axillary/Head tumor, Bx knee, Smoking Status: Never Smoker Alcohol Use: None Drug Use: None General Adult EDM: Chief Complaint: WEAKNESS/GENERALIZED HPI: HPI: Patient is a 74-year-old female with history of end-stage kidney disease on dialysis Thursday last dialyzed on Thursday who presents to the ED today from a dialysis center parking lot. Patient apparently took a bus to dialysis, she got to the parking lot felt weak and nauseous, she called 911 who brought her to the ED. Patient is a very poor historian. Review of Systems: Review of Systems: Constitutional: Reports generalized weakness. Denies fever or chills. [] Eyes: Denies change in visual acuity. [] HENT: Denies nasal congestion or sore throat. [] Respiratory: Denies cough or shortness of breath. [] Cardiovascular: Denies chest pain or edema. [] GI: Denies abdominal pain, nausea, vomiting, bloody stools or diarrhea. [] : Denies dysuria. [] Musculoskeletal: Denies back pain or joint pain. [] Integument: Denies rash. [] Neurologic: Denies headache, focal weakness or sensory changes. [] Psychiatric: Denies depression or anxiety. [] Heart Score: Risk Factors: Risk Factors: DM, Current or recent (<one month) smoker, HTN, HLP, family history of CAD, obesity. Risk Scores: Score 0 - 3: 2.5% MACE over next 6 weeks - Discharge Home Score 4 - 6: 20.3% MACE over next 6 weeks - Admit for Clinical Observation Score 7 - 10: 72.7% MACE over next 6 weeks - Early Invasive Strategies Allergies: Allergies: Allergies Coded Allergies Type Severity Reaction Last Updated Verified chlorhexidine Allergy Intermediate Rash 09/01/18 Yes Opioids - Morphine Analogues Adverse Reaction Intermediate Nausea and Vomiting 09/01/18 Yes Opioids-Meperidine and Related Adverse Reaction Intermediate Nausea and Vomiting 09/01/18 Yes Opioids-Methadone and Related Adverse Reaction Intermediate Nausea and Vomiting 09/01/18 Yes codeine Adverse Reaction Intermediate Nausea and Vomiting 09/01/18 Yes Physical Exam: PE: Constitutional: Well developed, well nourished, no acute distress, non-toxic appearance. [] HENT: Normocephalic, atraumatic, bilateral external ears normal, oropharynx moist, no oral exudates, nose normal. [] Eyes: PERRLA, EOMI, conjunctiva normal, no discharge. [] Neck: Normal range of motion, no tenderness, supple, no stridor. [] Cardiovascular:Heart rate regular rhythm, no murmur, dialysis fistula right forearm with positive bruit and thrill Lungs & Thorax: Bilateral breath sounds clear to auscultation [] Abdomen: Bowel sounds normal, soft, no tenderness, no masses, no pulsatile masses. [] Skin: Warm, dry, no erythema, no rash. [] Back: No tenderness, no CVA tenderness. [] Extremities: No tenderness, no cyanosis, no clubbing, ROM intact, no edema. [] Neurologic: Alert and oriented X 3, normal motor function, normal sensory function, no focal deficits noted. Cranial nerves II through XII intact Psychologic: Affect normal, judgement normal, mood normal. [] Current Patient Data: Vital Signs: Vital Signs Date Time Temp Pulse Resp B/P (MAP) Pulse Ox O2 Delivery O2 Flow Rate FiO2 05/07/20 12:07 97.2 61 18 150/69 (96) 100 Room Air 97.2 EKG: EKG: [] Radiology/Procedures: Radiology/Procedures: [] Course & Med Decision Making: Course & Med Decision Making Pertinent Labs and Imaging studies reviewed. (See chart for details) This is a 74-year-old female patient presenting to the ED today from a dialysis center, patient arrived at her dialysis center, felt weak and nauseous and called 911. CT of the head is negative, chest x-ray is negative. Pending labs. Spoke with -who accepted patient for admission, routine consult placed for nephrology Dragjulián Disclaimer: Sonia Disclaimer: This electronic medical record was generated, in whole or in part, using a voice recognition dictation system. Departure Departure Impression: Primary Impression: ESRD (end stage renal disease) Additional Impressions: Hyperkalemia Weakness Disposition: ADMITTED INPATIENT Referrals: YARY FAIRCHILD MD (PCP) Justicifation of Admission Dx: Justifications for Admission: Justification of Admission Dx: Yes Chronic Renal Failure: Other SHANTEL NICHOLSON APRN May 07, 2020 12:54
--- NOTE | 2020-05-07 13:19 | RAD ---
AP chest. HISTORY: Altered mental status Portable AP view was taken of the chest. Heart is upper normal in size. There is atherosclerotic change in the aorta with a tortuous aorta. There is arthritis in both shoulders. There are no acute infiltrates. There has been no change from the recent prior study. IMPRESSION: 1. No acute infiltrates. Electronically signed by: Saulo Johnson MD (05/07/2020 1:16 PM) [id number]
[2020-05-07 14:54] LABS: BASO % 1 % (0-3); EOS % 1 % (0-3); HEMATOCRIT 40.2 % (36.0-47.0); HEMOGLOBIN 12.7 g/dL (12.0-15.5); LYMPH % 26 % (24-48); MEAN CORPUSCULAR HEMOGLOBIN 32 pg (25-35); MEAN CORPUSCULAR HGB CONC 31 g/dL (31-37); MEAN CORPUSCULAR VOLUME 101 fL (79-100); MONO # 0.3 x10^3/uL (0.0-1.1); MONO % 7 % (0-9); NEUT # 2.7 x10^3/uL (1.8-7.7); NEUT % 66 % (31-73); PLATELET COUNT 148 x10^3/uL (140-400); RED BLOOD COUNT 3.98 x10^6/uL (3.50-5.40); RED CELL DISTRIBUTION WIDTH 15.1 % (11.5-14.5); WHITE BLOOD COUNT 4.1 x10^3/uL (4.0-11.0)
[2020-05-07 15:03] LABS: CALCIUM 9.7 mg/dL (8.5-10.1); CREATININE 11.6 mg/dL (0.6-1.0); GFR 3.9; POTASSIUM 5.4 mmol/L (3.5-5.1)
[2020-05-07 15:09] LABS: TOTAL PROTEIN 8.2 g/dL (6.4-8.2)
[2020-05-07 15:29] LABS: PROTHROMBIN TIME PATIENT 14.1 SEC (11.7-14.0)
[2020-05-07 15:59] LABS: ALBUMIN 3.9 g/dL (3.4-5.0); ALBUMIN/GLOBULIN RATIO 0.9 (1.0-1.7); MAGNESIUM 1.7 mg/dL (1.8-2.4); TOTAL BILIRUBIN 0.7 mg/dL (0.2-1.0)
[2020-05-07] MEDS ORDERED: ONDANSETRON PF 4 MG/2 ML VIAL. IV PRN (17:15)
[2020-05-07 19:03] VITALS: BP 147/61
--- NOTE | 2020-05-07 19:08 | NUR ---
Dialysis note: Consult called to Dr. Chen. K, CO2, Lactic acid, BUN/Cr reported. CXR report read to her. Will add patient to schedule for HD in am. No need for HD tonight unless patient's condition worsens.
[2020-05-07] MEDS ORDERED: LATA2.5D3 EACHEYE (19:29)
[2020-05-07] MEDS ORDERED: CALC667T4 PO (19:29)
[2020-05-07] MEDS ORDERED: BRIM5DRO4 EACHEYE (19:29)
[2020-05-07] MEDS: METOCLOPRAMIDE 5 MG TABLET. PO SCH (21:48)
[2020-05-07] MEDS: ZOLPIDEM 5 MG TABLET. PO PRN (21:49)
[2020-05-07] MEDS: BRIMONIDINE 0.2% OPHTH SOLUTION 5ML BOTTLE. OU SCH (21:50)
[2020-05-07] MEDS: LATANOPROST 0.005% OPHTH SOLUTION 2.5ML BOTTLE. OU SCH (21:50)
[2020-05-07] MEDS: TIMOLOL 0.5% OPHTH SOLUTION 5ML BOTTLE. OU SCH (21:50)
[2020-05-07 23:00] VITALS: BP 148/55
[2020-05-08 03:00] VITALS: BP 127/62
[2020-05-08 07:00] VITALS: BP 118/46
[2020-05-08] MEDS: SUCRALFATE 1 GM TABLET. PO SCH ×3 (07:30→16:56)
[2020-05-08] MEDS: METOCLOPRAMIDE 5 MG TABLET. PO SCH ×4 (07:30→20:12)
[2020-05-08] MEDS: CALCIUM ACETATE 667 MG CAPSULE PO SCH ×3 (08:00→16:56)
--- NOTE | 2020-05-08 08:08 | EKG ---
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
[2020-05-08] MEDS ORDERED: IV NORMAL SALINE 1000ML BAG 1,000 ML IV PRN ×2 (08:20)
[2020-05-08] MEDS ORDERED: ALBUMIN HUMAN 25% 200 ML IV PRN (08:30)
[2020-05-08] MEDS ORDERED: diphenhydrAMINE 50 MG/ML VIAL IV PRN ×2 (08:30)
[2020-05-08] MEDS ORDERED: DIALYSIS PATIENT. MC PRN (08:30)
[2020-05-08] MEDS ORDERED: ACETAMINOPHEN 500 MG TABLET PO PRN (08:30)
--- NOTE | 2020-05-08 08:53 | PDOC ---
Provider Note Provider Note Pt seen .H&P dictated.#[id number]. Justicifation of Admission Dx: Justifications for Admission: Justification of Admission Dx: Yes Chronic Renal Failure: Other YARY FAIRCHILD MD May 08, 2020 08:53
--- NOTE | 2020-05-08 09:19 | HP ---
ADMIT DATE: 05/07/2020 REASON FOR ADMISSION TO THE HOSPITAL: Generalized weakness. The patient is a dialysis patient, missed dialysis yesterday morning, goes to dialysis on Thursday, Thursday, and Thursday. HISTORY OF PRESENT ILLNESS: The patient is a 74-year-old female well known to me, has chronic renal failure, multiple admissions. The patient was last admitted 1-2 weeks ago. The patient goes to dialysis on Thursday, Thursday, and Thursday. On Thursday, she did not feel well, so she went to dialysis Thursday. On Thursday, she was supposed to go to dialysis. She goes public transportation and by the time she went to dialysis, she was feeling weak, could not get out of the dialysis of the transportation bus and ambulance was called. The patient was brought to the hospital. The patient's lactic acid was high at 4, but white count was normal. The patient was admitted for further investigation and treatment. PAST MEDICAL HISTORY: Has a history of hypertension, history of diabetes in the past, off many medications. Hemodialysis Thursday, Thursday and Thursday, pulmonary hypertension and chronic diastolic heart failure. PAST SURGICAL HISTORY: Had a cardiac catheterization, cataract surgery, fistulas, and knee surgeries. PERSONAL HISTORY: Denies smoking, alcohol, drug abuse. SOCIAL HISTORY: Lives at home. The patient lives with her daughter and she goes to dialysis 3 times a week. FAMILY HISTORY: Diabetes, hypertension. REVIEW OF SYMPTOMS: The patient feels weak. Denies any nausea, vomiting or cough, fever. Rest of the 14 systems was reviewed and negative. ALLERGIES: THE PATIENT IS ALLERGIC TO MORPHINE AND RELATED MEDICATIONS, METHADONE, CODEINE. MEDICATIONS AT HOME: The patient is on aspirin 81 mg daily, Nephro-Elsa 1 daily, Reglan 10 mg before meals, Nasonex daily, pantoprazole 40 mg daily, Carafate 1 gram 3 times a day, Ambien 5 mg daily, takes eyedrops latanoprost each eye, bromide tartrate one drop each eye twice a day and she is on isosorbide 30 mg daily, midodrine 5 mg whenever blood pressure is low. PHYSICAL EXAMINATION: GENERAL: The patient is not in any distress. VITAL SIGNS: At the time of admission shows temperature 98, pulse 60, respirations 18, blood pressure 150/69, 100% on room air. HEENT: Head is atraumatic. Pupils equal. Oral cavity: Dentures. NECK: Supple. Thyroid not enlarged. JVD not elevated. CHEST: Symmetrical. CARDIOVASCULAR: S1, S2. LUNGS: Clear to auscultation. ABDOMEN: Soft, bowel sounds present, no mass palpable. EXTERNAL GENITALIA: No Holloway. RECTAL: Deferred. EXTREMITIES: No calf tenderness, no edema. Pulses 1+. NEUROLOGIC: Moving all extremities. No focal deficits noted. The patient has a chronic rotator cuff injuries. LABORATORY DATA: Shows a white count of 4, hemoglobin 12, platelets 148. INR 1.1. Electrolytes show sodium 139, potassium 5.4, chloride 98, bicarbonate 18, anion gap 23, BUN 60, creatinine 11.6, bicarbonate was 18, glucose 67. Magnesium 1.7. LFTs were normal. BNP 4354. TSH 1.8. Troponin was negative. Lactic acid 4.2. Ammonia less than 10. Procalcitonin 0.27. Chest x-ray was negative. EKG negative. FINAL IMPRESSION: 1. Generalized weakness. 2. Lactic acidosis, elevated to 4.2, probably because the patient missed dialysis. 3. End-stage renal disease, Thursday, Thursday, and Thursday. 4. Pulmonary hypertension. 5. Diastolic heart failure. 6. History of diabetes, off medications. PLAN: At this time, the patient was admitted to the hospital, monitor lactic acid. The patient will get dialyzed. Renal consult and see how she does. We will check a urine to make sure she has no infection. On the whole, the patient's prognosis is guarded, at this time remains stable. YARY FAIRCHILD MD DR: SAM/kailee JOB#: [id number] / [id number]
[2020-05-08] MEDS: PANTOPRAZOLE 40 MG TABLET.DR. PO SCH (09:56)
[2020-05-08] MEDS: CALCIUM CARBONATE 500 MG TAB.CHEW PO PRN (09:56)
[2020-05-08 10:33] LABS: BASO % 1 % (0-3); EOS # 0.1 x10^3/uL (0.0-0.7); EOS % 2 % (0-3); HEMATOCRIT 32.2 % (36.0-47.0); HEMOGLOBIN 10.9 g/dL (12.0-15.5); LYMPH # 1.1 x10^3/uL (1.0-4.8); LYMPH % 33 % (24-48); MEAN CORPUSCULAR HEMOGLOBIN 32 pg (25-35); MEAN CORPUSCULAR HGB CONC 34 g/dL (31-37); MEAN CORPUSCULAR VOLUME 94 fL (79-100); MONO # 0.2 x10^3/uL (0.0-1.1); MONO % 6 % (0-9); NEUT # 1.9 x10^3/uL (1.8-7.7); NEUT % 58 % (31-73); PLATELET COUNT 143 x10^3/uL (140-400); RED BLOOD COUNT 3.42 x10^6/uL (3.50-5.40); RED CELL DISTRIBUTION WIDTH 14.6 % (11.5-14.5); WHITE BLOOD COUNT 3.3 x10^3/uL (4.0-11.0)
[2020-05-08 10:48] LABS: ALBUMIN 3.4 g/dL (3.4-5.0); ALBUMIN/GLOBULIN RATIO 0.9 (1.0-1.7); CALCIUM 8.8 mg/dL (8.5-10.1); CREATININE 8.6 mg/dL (0.6-1.0); GFR 5.5; POTASSIUM 4.4 mmol/L (3.5-5.1); TOTAL BILIRUBIN 0.6 mg/dL (0.2-1.0); TOTAL PROTEIN 7.3 g/dL (6.4-8.2)
--- NOTE | 2020-05-08 11:35 | PDOC2 ---
CONSULT Date of Consult Date of Consult DATE: 05/08/20 TIME: 11:34 Reason for Consult Reason for Consult: ESRD Source Source: Chart review, Patient History of Present Illness Reason for Visit: Pt is 74 yo AAF admitted with c/o Generalized weakness. She has been hospitalized multiple times. She was last admitted 1-2 weeks ago. Her regular HD days are MWF- she missed on Thursday as she was not feeling well but went on Thursday The patient goes to dialysis on Thursday, Thursday, and Thursday. On Thursday, she did not feel well, so she went to dialysis Thursday. She did go for HD on thursday but was feeling weak , Hd was stopped after approx 2 hrs and Pt was sent to [facility] ER via ambulance She denies any N/V/D. No CP or SOB . She is on HD currently, very restless, moving around, c/o abdominal pain . Past Medical History Cardiovascular: CHF, HTN, Pulmonary hypertension Pulmonary: COPD CENTRAL NERVOUS SYSTEM: Other GI: GERD, Gastritis Heme/Onc: Anemia NOS Psych: Anxiety, Depression Renal/: Chronic renal failure, Other Endocrine: Hyperparathyroidism Past Surgical History Past Surgical History: Cataract Removal, Total knee replacement, Other Family History Family History: Coronary Artery Disease Social History ALCOHOL: none Drugs: None Lives: with Family Current Problem List Problem List Problems Medical Problems: (1) ESRD (end stage renal disease) Status: Chronic (2) Hyperkalemia Status: Acute (3) Weakness Status: Acute Current Medications Current Medications Current Medications Ondansetron HCl (Zofran) 4 mg PRN Q8HRS PRN IV NAUSEA/VOMITING; Start 05/07/20 at 17:15; Stop 05/08/20 at 17:14 Aspirin (Ecotrin) 81 mg DAILYWBKFT PO ; Start 05/08/20 at 08:00 Brimonidine Tartrate (Alphagan) 1 drop BID OU Last administered on 05/07/20at 21:50; Start 05/07/20 at 21:00 Vitamin B Complex/ Vitamin C (Evelyn-Elsa) 1 tab DAILY PO ; Start 05/08/20 at 09:00 Latanoprost (Xalatan) 1 drop QHS OU Last administered on 05/07/20at 21:50; Start 05/07/20 at 21:00 Metoclopramide HCl (Reglan) 2.5 mg QIDACHS PO Last administered on 05/07/20at 21:48; Start 05/07/20 at 21:00 Pantoprazole Sodium (Protonix) 40 mg DAILYAC PO Last administered on 05/08/20at 09:56; Start 05/08/20 at 07:30 Sucralfate (Carafate) 1 gm TIDAC PO ; Start 05/08/20 at 07:30 Zolpidem Tartrate (Ambien) 5 mg PRN QHS PRN PO INSOMNIA Last administered on 05/07/20at 21:49; Start 05/07/20 at 19:45 Timolol Maleate (Timoptic 0.5% [facility]) 1 drop BID OU Last administered on 05/07/20at 21:50; Start 05/07/20 at 21:00 Calcium Acetate (Phoslo) 1,334 mg TIDWMEALS PO ; Start 05/08/20 at 08:00 Fluticasone Propionate (Flonase) 2 spray DAILY NS ; Start 05/08/20 at 09:00 Sodium Chloride 1,000 ml @ 1,000 mls/hr Q1H PRN IV hypotension; Start 05/08/20 at 08:20; Stop 05/08/20 at 14:19 Albumin Human 200 ml @ 200 mls/hr 1X PRN PRN IV Hypotension; Start 05/08/20 at 08:30; Stop 05/08/20 at 14:29 Acetaminophen (Tylenol) 500 mg 1X PRN PRN PO MILD PAIN / TEMP > 100.3'F; Start 05/08/20 at 08:30; Stop 05/09/20 at 08:29 Diphenhydramine HCl (Benadryl) 25 mg 1X PRN PRN IV ITCHING; Start 05/08/20 at 08:30; Stop 05/09/20 at 08:29 Diphenhydramine HCl (Benadryl) 25 mg 1X PRN PRN IV ITCHING; Start 05/08/20 at 08:30; Stop 05/09/20 at 08:29 Sodium Chloride 1,000 ml @ 400 mls/hr Q2H30M PRN IV PATENCY; Start 05/08/20 at 08:20; Stop 05/08/20 at 20:19 Info (PHARMACY MONITORING -- do not chart) 1 each PRN DAILY PRN MC SEE COMMENTS; Start 05/08/20 at 08:30 Calcium Carbonate/ Glycine (Tums) 1,000 mg PRN AFTMEALHC PRN PO INDIGESTION Last administered on 05/08/20at 09:56; Start 05/08/20 at 10:00 Active Scripts Active Midodrine Hcl 5 Mg Tablet 5 Mg PO DAILY 30 Days Reglan (Metoclopramide Hcl) 10 Mg Tablet 1 Tab PO QID Isosorbide Mononitrate Er (Isosorbide Mononitrate) 30 Mg Tab.er.24h 30 Mg PO DAILY08 30 Days Aspirin Ec (Aspirin) 81 Mg Tablet. 81 Mg PO DAILYWBKFT 30 Days Reported Calcium Acetate 667 Mg Tablet 2 Tab PO TID 30 Days Latanoprost 2.5 Ml Drops 1 Drop EACHEYE QHS Brimonidine Tartrate 5 Ml Drops 1 Drop EACHEYE BID Combigan Eye Drops (Brimonidine Tartrate/Timolol) 5 Ml Drops 5 Ml OP BID Zolpidem Tartrate 5 Mg Tablet 5 Mg PO PRN QHS PRN Pantoprazole Sodium (Pantoprazole Sodium) 40 Mg Tablet. 40 Mg PO DAILY Nephro-Elsa Tablet (Folic Acid/Vitamin B Comp W-C) 0.8 Mg Tablet 1 Tab PO DAILY Nasonex (Mometasone Furoate) 17 Gm [place].pump 2 Sprays NS DAILY Carafate (Sucralfate) 1 Gm Tablet 1 Gm PO TIDAC Allergies Allergies: Coded Allergies: chlorhexidine (Verified Allergy, Intermediate, Rash, 09/01/18) Opioids - Morphine Analogues (Verified Adverse Reaction, Intermediate, Nausea and Vomiting, 09/01/18) Opioids-Meperidine and Related (Verified Adverse Reaction, Intermediate, Nausea and Vomiting, 09/01/18) Opioids-Methadone and Related (Verified Adverse Reaction, Intermediate, Nausea and Vomiting, 09/01/18) codeine (Verified Adverse Reaction, Intermediate, Nausea and Vomiting, 09/01/18) ROS Review of System Per HPI, rest of the ROS is negative Physical Exam Physical Exam GEN: NAD , restless HEEN: OM moist NECK: supple CVS: S1S2, RESP: CTA, No Acc. Muscle Use GI: BS + ve, : No CVA tenderness, No Suprapubic Tenderness, No Holloway NEURO- Grossly normal, awake and alert EXT No LE edema SKIN No Rash Vital Signs Vital Signs Date Time Temp Pulse Resp B/P (MAP) Pulse Ox O2 Delivery O2 Flow Rate FiO2 05/08/20 07:00 98.7 57 20 118/46 (70) 100 Room Air 98.7 Assessment & Plan ESRD - On HD MWF Seen on HD, extra treatment today as incomplete treatment on Thursday Somewhat restless initially, calmed down later Continue as ordered, Michael Davidson Generalized weakness- Per primary Pulmonary hypertension. Diastolic heart failure- asymptomatic History of diabetes, off medications. Labs Labs Laboratory Tests Test 05/07/20 14:30 05/07/20 15:10 05/07/20 20:20 05/07/20 22:10 White Blood Count 4.1 x10^3/uL (4.0-11.0) Red Blood Count 3.98 x10^6/uL (3.50-5.40) Hemoglobin 12.7 g/dL (12.0-15.5) Hematocrit 40.2 % (36.0-47.0) Mean Corpuscular Volume 101 fL (79-100) Mean Corpuscular Hemoglobin 32 pg (25-35) Mean Corpuscular Hemoglobin Concent 31 g/dL (31-37) Red Cell Distribution Width 15.1 % (11.5-14.5) Platelet Count 148 x10^3/uL (140-400) Neutrophils (%) (Auto) 66 % (31-73) Lymphocytes (%) (Auto) 26 % (24-48) Monocytes (%) (Auto) 7 % (0-9) Eosinophils (%) (Auto) 1 % (0-3) Basophils (%) (Auto) 1 % (0-3) Neutrophils # (Auto) 2.7 x10^3/uL (1.8-7.7) Lymphocytes # (Auto) 1.0 x10^3/uL (1.0-4.8) Monocytes # (Auto) 0.3 x10^3/uL (0.0-1.1) Eosinophils # (Auto) 0.0 x10^3/uL (0.0-0.7) Basophils # (Auto) 0.0 x10^3/uL (0.0-0.2) Sodium Level 139 mmol/L (136-145) Potassium Level 5.4 mmol/L (3.5-5.1) Chloride Level 98 mmol/L (98-107) Carbon Dioxide Level 18 mmol/L (21-32) Anion Gap 23 (6-14) Blood Urea Nitrogen 60 mg/dL (7-20) Creatinine 11.6 mg/dL (0.6-1.0) Estimated GFR (Cockcroft-Gault) 3.9 BUN/Creatinine Ratio 5 (6-20) Glucose Level 67 mg/dL (70-99) Calcium Level 9.7 mg/dL (8.5-10.1) Magnesium Level 1.7 mg/dL (1.8-2.4) Total Bilirubin 0.7 mg/dL (0.2-1.0) Aspartate Amino Transf (AST/SGOT) 20 U/L (15-37) Alanine Aminotransferase (ALT/SGPT) 15 U/L (14-59) Alkaline Phosphatase 289 U/L (46-116) Creatine Kinase 82 U/L (26-192) Creatine Kinase MB (Mass) 1.7 ng/mL (0.0-3.6) Creatine Kinase MB Relative Index 2.1 % (0-4) Troponin I Quantitative 0.028 ng/mL (0.000-0.055) RY-Uvc-O-Type Natriuretic Peptide 4354 pg/mL (0-124) Total Protein 8.2 g/dL (6.4-8.2) Albumin 3.9 g/dL (3.4-5.0) Albumin/Globulin Ratio 0.9 (1.0-1.7) Procalcitonin 0.27 ng/mL (0.00-0.10) Thyroid Stimulating Hormone (TSH) 1.814 uIU/mL (0.358-3.74) Prothrombin Time 14.1 SEC (11.7-14.0) Prothromb Time International Ratio 1.1 (0.8-1.1) Activated Partial Thromboplast Time 32 SEC (24-38) Lactic Acid Level 4.2 mmol/L (0.4-2.0) 3.4 mmol/L (0.4-2.0) 2.2 mmol/L (0.4-2.0) Ammonia < 10 mcmol/L (11-34) Test 05/08/20 09:50 White Blood Count 3.3 x10^3/uL (4.0-11.0) Red Blood Count 3.42 x10^6/uL (3.50-5.40) Hemoglobin 10.9 g/dL (12.0-15.5) Hematocrit 32.2 % (36.0-47.0) Mean Corpuscular Volume 94 fL (79-100) Mean Corpuscular Hemoglobin 32 pg (25-35) Mean Corpuscular Hemoglobin Concent 34 g/dL (31-37) Red Cell Distribution Width 14.6 % (11.5-14.5) Platelet Count 143 x10^3/uL (140-400) Neutrophils (%) (Auto) 58 % (31-73) Lymphocytes (%) (Auto) 33 % (24-48) Monocytes (%) (Auto) 6 % (0-9) Eosinophils (%) (Auto) 2 % (0-3) Basophils (%) (Auto) 1 % (0-3) Neutrophils # (Auto) 1.9 x10^3/uL (1.8-7.7) Lymphocytes # (Auto) 1.1 x10^3/uL (1.0-4.8) Monocytes # (Auto) 0.2 x10^3/uL (0.0-1.1) Eosinophils # (Auto) 0.1 x10^3/uL (0.0-0.7) Basophils # (Auto) 0.0 x10^3/uL (0.0-0.2) Sodium Level 134 mmol/L (136-145) Potassium Level 4.4 mmol/L (3.5-5.1) Chloride Level 96 mmol/L (98-107) Carbon Dioxide Level 23 mmol/L (21-32) Anion Gap 15 (6-14) Blood Urea Nitrogen 49 mg/dL (7-20) Creatinine 8.6 mg/dL (0.6-1.0) Estimated GFR (Cockcroft-Gault) 5.5 BUN/Creatinine Ratio 6 (6-20) Glucose Level 101 mg/dL (70-99) Lactic Acid Level 1.4 mmol/L (0.4-2.0) Calcium Level 8.8 mg/dL (8.5-10.1) Total Bilirubin 0.6 mg/dL (0.2-1.0) Aspartate Amino Transf (AST/SGOT) 15 U/L (15-37) Alanine Aminotransferase (ALT/SGPT) 12 U/L (14-59) Alkaline Phosphatase 266 U/L (46-116) Total Protein 7.3 g/dL (6.4-8.2) Albumin 3.4 g/dL (3.4-5.0) Albumin/Globulin Ratio 0.9 (1.0-1.7) Laboratory Tests Test 05/07/20 14:30 05/07/20 15:10 05/07/20 20:20 05/07/20 22:10 White Blood Count 4.1 x10^3/uL (4.0-11.0) Red Blood Count 3.98 x10^6/uL (3.50-5.40) Hemoglobin 12.7 g/dL (12.0-15.5) Hematocrit 40.2 % (36.0-47.0) Mean Corpuscular Volume 101 fL (79-100) Mean Corpuscular Hemoglobin 32 pg (25-35) Mean Corpuscular Hemoglobin Concent 31 g/dL (31-37) Red Cell Distribution Width 15.1 % (11.5-14.5) Platelet Count 148 x10^3/uL (140-400) Neutrophils (%) (Auto) 66 % (31-73) Lymphocytes (%) (Auto) 26 % (24-48) Monocytes (%) (Auto) 7 % (0-9) Eosinophils (%) (Auto) 1 % (0-3) Basophils (%) (Auto) 1 % (0-3) Neutrophils # (Auto) 2.7 x10^3/uL (1.8-7.7) Lymphocytes # (Auto) 1.0 x10^3/uL (1.0-4.8) Monocytes # (Auto) 0.3 x10^3/uL (0.0-1.1) Eosinophils # (Auto) 0.0 x10^3/uL (0.0-0.7) Basophils # (Auto) 0.0 x10^3/uL (0.0-0.2) Sodium Level 139 mmol/L (136-145) Potassium Level 5.4 mmol/L (3.5-5.1) Chloride Level 98 mmol/L (98-107) Carbon Dioxide Level 18 mmol/L (21-32) Anion Gap 23 (6-14) Blood Urea Nitrogen 60 mg/dL (7-20) Creatinine 11.6 mg/dL (0.6-1.0) Estimated GFR (Cockcroft-Gault) 3.9 BUN/Creatinine Ratio 5 (6-20) Glucose Level 67 mg/dL (70-99) Calcium Level 9.7 mg/dL (8.5-10.1) Magnesium Level 1.7 mg/dL (1.8-2.4) Total Bilirubin 0.7 mg/dL (0.2-1.0) Aspartate Amino Transf (AST/SGOT) 20 U/L (15-37) Alanine Aminotransferase (ALT/SGPT) 15 U/L (14-59) Alkaline Phosphatase 289 U/L (46-116) Creatine Kinase 82 U/L (26-192) Creatine Kinase MB (Mass) 1.7 ng/mL (0.0-3.6) Creatine Kinase MB Relative Index 2.1 % (0-4) Troponin I Quantitative 0.028 ng/mL (0.000-0.055) CV-Ckq-G-Type Natriuretic Peptide 4354 pg/mL (0-124) Total Protein 8.2 g/dL (6.4-8.2) Albumin 3.9 g/dL (3.4-5.0) Albumin/Globulin Ratio 0.9 (1.0-1.7) Procalcitonin 0.27 ng/mL (0.00-0.10) Thyroid Stimulating Hormone (TSH) 1.814 uIU/mL (0.358-3.74) Prothrombin Time 14.1 SEC (11.7-14.0) Prothromb Time International Ratio 1.1 (0.8-1.1) Activated Partial Thromboplast Time 32 SEC (24-38) Lactic Acid Level 4.2 mmol/L (0.4-2.0) 3.4 mmol/L (0.4-2.0) 2.2 mmol/L (0.4-2.0) Ammonia < 10 mcmol/L (11-34) Test 05/08/20 09:50 White Blood Count 3.3 x10^3/uL (4.0-11.0) Red Blood Count 3.42 x10^6/uL (3.50-5.40) Hemoglobin 10.9 g/dL (12.0-15.5) Hematocrit 32.2 % (36.0-47.0) Mean Corpuscular Volume 94 fL (79-100) Mean Corpuscular Hemoglobin 32 pg (25-35) Mean Corpuscular Hemoglobin Concent 34 g/dL (31-37) Red Cell Distribution Width 14.6 % (11.5-14.5) Platelet Count 143 x10^3/uL (140-400) Neutrophils (%) (Auto) 58 % (31-73) Lymphocytes (%) (Auto) 33 % (24-48) Monocytes (%) (Auto) 6 % (0-9) Eosinophils (%) (Auto) 2 % (0-3) Basophils (%) (Auto) 1 % (0-3) Neutrophils # (Auto) 1.9 x10^3/uL (1.8-7.7) Lymphocytes # (Auto) 1.1 x10^3/uL (1.0-4.8) Monocytes # (Auto) 0.2 x10^3/uL (0.0-1.1) Eosinophils # (Auto) 0.1 x10^3/uL (0.0-0.7) Basophils # (Auto) 0.0 x10^3/uL (0.0-0.2) Sodium Level 134 mmol/L (136-145) Potassium Level 4.4 mmol/L (3.5-5.1) Chloride Level 96 mmol/L (98-107) Carbon Dioxide Level 23 mmol/L (21-32) Anion Gap 15 (6-14) Blood Urea Nitrogen 49 mg/dL (7-20) Creatinine 8.6 mg/dL (0.6-1.0) Estimated GFR (Cockcroft-Gault) 5.5 BUN/Creatinine Ratio 6 (6-20) Glucose Level 101 mg/dL (70-99) Lactic Acid Level 1.4 mmol/L (0.4-2.0) Calcium Level 8.8 mg/dL (8.5-10.1) Total Bilirubin 0.6 mg/dL (0.2-1.0) Aspartate Amino Transf (AST/SGOT) 15 U/L (15-37) Alanine Aminotransferase (ALT/SGPT) 12 U/L (14-59) Alkaline Phosphatase 266 U/L (46-116) Total Protein 7.3 g/dL (6.4-8.2) Albumin 3.4 g/dL (3.4-5.0) Albumin/Globulin Ratio 0.9 (1.0-1.7) Review All relevant outside records, renal labs, imaging studies, telemetry/EKG's were reviewed. Images Images Portable AP view was taken of the chest. Heart is upper normal in size. There is atherosclerotic change in the aorta with a tortuous aorta. There is arthritis in both shoulders. There are no acute infiltrates. There has been no change from the recent prior study. IMPRESSION: 1. No acute infiltrates. JOELLEN AGUIRRE MD May 08, 2020 11:35
--- NOTE | 2020-05-08 13:09 | NUR ---
SW following. Reviewed chart and discussed with RN. Pt from home, room air, renal diet. Pt does outpatient dialysis on MWF at [facility], , (fax).
[2020-05-08 13:23] VITALS: BP 99/52
[2020-05-08] MEDS: FOLIC/VIT B COMP W-C (RENAL) TABLET. PO SCH (13:24)
[2020-05-08] MEDS: ASPIRIN ENTERIC COATED 81 MG TABLET.DR. PO SCH (13:24)
[2020-05-08] MEDS: TIMOLOL 0.5% OPHTH SOLUTION 5ML BOTTLE. OU SCH ×2 (13:24→20:12)
[2020-05-08] MEDS: BRIMONIDINE 0.2% OPHTH SOLUTION 5ML BOTTLE. OU SCH ×2 (13:25→20:12)
[2020-05-08] MEDS: FLUTICASONE 50MCG/NASAL SPRAY 16GM BOTTLE. NS SCH (13:25)
[2020-05-08 15:09] VITALS: BP 104/53
[2020-05-08 18:30] VITALS: BP 94/46
[2020-05-08] MEDS: LATANOPROST 0.005% OPHTH SOLUTION 2.5ML BOTTLE. OU SCH (20:11)
[2020-05-08] MEDS: ZOLPIDEM 5 MG TABLET. PO PRN (20:12)
[2020-05-08 23:00] VITALS: BP 118/54
[2020-05-09 03:00] VITALS: BP 124/72
[2020-05-09 07:00] VITALS: BP 122/58
[2020-05-09] MEDS: SUCRALFATE 1 GM TABLET. PO SCH ×3 (07:30→17:13)
[2020-05-09] MEDS: METOCLOPRAMIDE 5 MG TABLET. PO SCH ×4 (07:30→23:35)
[2020-05-09] MEDS ORDERED: IV NORMAL SALINE 1000ML BAG 1,000 ML IV PRN ×2 (07:33)
[2020-05-09] MEDS ORDERED: ALBUMIN HUMAN 25% 200 ML IV PRN (07:45)
[2020-05-09] MEDS ORDERED: ACETAMINOPHEN 500 MG TABLET PO PRN (07:45)
[2020-05-09] MEDS ORDERED: DIALYSIS PATIENT. MC PRN (07:45)
[2020-05-09] MEDS ORDERED: diphenhydrAMINE 50 MG/ML VIAL IV PRN (07:45)
[2020-05-09] MEDS: CALCIUM ACETATE 667 MG CAPSULE PO SCH ×3 (08:00→17:13)
--- NOTE | 2020-05-09 08:53 | PDOC ---
PROGRESS NOTES Date of Service: DATE: 05/09/20 TIME: 08:51 Subjective Subjective feels weak Objective Objective Vital Signs Date Time Temp Pulse Resp B/P (MAP) Pulse Ox O2 Delivery O2 Flow Rate FiO2 05/09/20 03:00 97.6 60 20 124/72 (89) 94 Room Air 97.6 Intake and Output 05/09/20 07:00 Intake Total 1440 ml Output Total 0 ml Balance 1440 ml Intake Oral 1440 ml Output Urine Total 0 ml # Voids 4 Physical Exam Abdomen: Soft Heart: Regular rate General: Oriented X3 Lungs: Clear to auscultation MUSCULOSKELETAL: No deformity, No swelling Neuro: Normal speech Psych/Mental Status: Mental status NL Skin: No breakdown Diagnosis Problem List Problems Medical Problems: (1) ESRD (end stage renal disease) Status: Chronic (2) Hyperkalemia Status: Acute (3) Weakness Status: Acute Assessment Assessment Problems Medical Problems: (1) ESRD (end stage renal disease) Status: Chronic (2) Hyperkalemia Status: Acute (3) Weakness Status: Acute FINAL IMPRESSION: 1. Generalized weakness. 2. Lactic acidosis, elevated to 4.2, probably because the patient missed dialysis. 3. End-stage renal disease, Thursday, Thursday, and Thursday. 4. Pulmonary hypertension. 5. Diastolic heart failure. 6. History of diabetes, off medications. PLAN: clinically improving lactic acid down to normal dialysis today PT/OT SNU screen. labs stable. At this time, the patient was admitted to the hospital, monitor lactic acid. The patient will get dialyzed. Renal consult and see how she does. We will check a urine to make sure she has no infection. On the whole, the patient's prognosis is guarded, at this time remains stable. Plan Plan of Care Problems Medical Problems: (1) ESRD (end stage renal disease) Status: Chronic (2) Hyperkalemia Status: Acute (3) Weakness Status: Acute Comment Review of Relevant I have reviewed the following items dorina (where applicable) has been applied. Labs Laboratory Tests Test 05/08/20 09:50 White Blood Count 3.3 x10^3/uL (4.0-11.0) Red Blood Count 3.42 x10^6/uL (3.50-5.40) Hemoglobin 10.9 g/dL (12.0-15.5) Hematocrit 32.2 % (36.0-47.0) Mean Corpuscular Volume 94 fL (79-100) Mean Corpuscular Hemoglobin 32 pg (25-35) Mean Corpuscular Hemoglobin Concent 34 g/dL (31-37) Red Cell Distribution Width 14.6 % (11.5-14.5) Platelet Count 143 x10^3/uL (140-400) Neutrophils (%) (Auto) 58 % (31-73) Lymphocytes (%) (Auto) 33 % (24-48) Monocytes (%) (Auto) 6 % (0-9) Eosinophils (%) (Auto) 2 % (0-3) Basophils (%) (Auto) 1 % (0-3) Neutrophils # (Auto) 1.9 x10^3/uL (1.8-7.7) Lymphocytes # (Auto) 1.1 x10^3/uL (1.0-4.8) Monocytes # (Auto) 0.2 x10^3/uL (0.0-1.1) Eosinophils # (Auto) 0.1 x10^3/uL (0.0-0.7) Basophils # (Auto) 0.0 x10^3/uL (0.0-0.2) Sodium Level 134 mmol/L (136-145) Potassium Level 4.4 mmol/L (3.5-5.1) Chloride Level 96 mmol/L (98-107) Carbon Dioxide Level 23 mmol/L (21-32) Anion Gap 15 (6-14) Blood Urea Nitrogen 49 mg/dL (7-20) Creatinine 8.6 mg/dL (0.6-1.0) Estimated GFR (Cockcroft-Gault) 5.5 BUN/Creatinine Ratio 6 (6-20) Glucose Level 101 mg/dL (70-99) Lactic Acid Level 1.4 mmol/L (0.4-2.0) Calcium Level 8.8 mg/dL (8.5-10.1) Total Bilirubin 0.6 mg/dL (0.2-1.0) Aspartate Amino Transf (AST/SGOT) 15 U/L (15-37) Alanine Aminotransferase (ALT/SGPT) 12 U/L (14-59) Alkaline Phosphatase 266 U/L (46-116) Total Protein 7.3 g/dL (6.4-8.2) Albumin 3.4 g/dL (3.4-5.0) Albumin/Globulin Ratio 0.9 (1.0-1.7) Microbiology 05/07/20 Blood Culture - Preliminary, Resulted NO GROWTH AFTER 1 DAY Medications Current Medications Acetaminophen (Tylenol) 500 mg 1X PRN PRN PO MILD PAIN / TEMP > 100.3'F; Start 05/09/20 at 07:45; Stop 05/10/20 at 07:44 Albumin Human 200 ml @ 200 mls/hr 1X PRN PRN IV Hypotension; Start 05/09/20 at 07:45; Stop 05/09/20 at 13:44 Calcium Carbonate/ Glycine (Tums) 1,000 mg PRN AFTMEALHC PRN PO INDIGESTION Last administered on 05/08/20at 09:56; Start 05/08/20 at 10:00 Diphenhydramine HCl (Benadryl) 25 mg 1X PRN PRN IV ITCHING; Start 05/09/20 at 07:45; Stop 05/10/20 at 07:44 Fluticasone Propionate (Flonase) 2 spray DAILY NS Last administered on 05/08/20at 13:25; Start 05/08/20 at 09:00 Info (PHARMACY MONITORING -- do not chart) 1 each PRN DAILY PRN MC SEE COMMENTS; Start 05/09/20 at 07:45 Sodium Chloride 1,000 ml @ 400 mls/hr Q2H30M PRN IV PATENCY; Start 05/09/20 at 07:33; Stop 05/09/20 at 19:32 Sodium Chloride 1,000 ml @ 1,000 mls/hr Q1H PRN IV hypotension; Start 05/09/20 at 07:33; Stop 05/09/20 at 13:32 Vitamin B Complex/ Vitamin C (Evelyn-Elsa) 1 tab DAILY PO Last administered on 05/08/20at 13:24; Start 05/08/20 at 09:00 Vitals/I & O Vital Sign - Last 24 Hours 05/08/20 05/08/20 05/08/20 05/08/20 13:23 15:09 18:30 20:00 Temp 98.9 98.8 98.9 98.8 Pulse 66 86 70 Resp 20 20 24 B/P (MAP) 99/52 (68) 104/53 (70) 94/46 (62) Pulse Ox 96 97 100 O2 Delivery Room Air Room Air Room Air Room Air 05/08/20 05/09/20 23:00 03:00 Temp 98.0 97.6 98.0 97.6 Pulse 57 60 Resp 20 20 B/P (MAP) 118/54 (75) 124/72 (89) Pulse Ox 96 94 O2 Delivery Room Air Room Air Intake and Output 05/08/20 05/08/20 05/09/20 15:00 23:00 07:00 Intake Total 200 ml 700 ml 540 ml Output Total 0 ml Balance 200 ml 700 ml 540 ml Justicifation of Admission Dx: Justifications for Admission: Justification of Admission Dx: Yes Chronic Renal Failure: Other YARY FAIRCHILD MD May 09, 2020 08:53
--- NOTE | 2020-05-09 09:18 | PDOC ---
DATE OF SERVICE DATE: 05/09/20 TIME: 09:18 SUBJECTIVE ROS Wants to come off Hd in 2 hrs, states she cannot tolerate 31/2 hrs No SOB, No CP , or SOB, No abdominal pain OBJECTIVE Vital Signs Vital Signs Date Time Temp Pulse Resp B/P (MAP) Pulse Ox O2 Delivery O2 Flow Rate FiO2 05/09/20 07:00 97.6 65 18 122/58 (79) 97 Room Air 97.6 I & 0 Intake and Output 05/09/20 07:00 Intake Total 1440 ml Output Total 0 ml Balance 1440 ml Intake Oral 1440 ml Output Urine Total 0 ml # Voids 4 PHYSICAL EXAM Physical Exam GEN: NAD , restless HEEN: OM moist NECK: supple CVS: S1S2, RESP: CTA, No Acc. Muscle Use GI: BS + ve, : No CVA tenderness, No Suprapubic Tenderness, No Holloway NEURO- Grossly normal, awake and alert EXT No LE edema SKIN No Rash DIAGNOSIS/ASSESSMENT Assessment & Plan ESRD - On HD MWF extra treatment yesterday- only for 2 hrs as pt was feeling weak and wanted to come off early Seen on HD today , continue as ordered , Michael BRASWELL pt importance of completeing and Compliance with HD Generalized weakness- Per primary Pulmonary hypertension. Diastolic heart failure- asymptomatic History of diabetes, off medications. COMMENT/RELEVANT DATA Meds Current Medications Medications (Trade) Dose Ordered Sig/Any Start Time Stop Time Status Last Admin Dose Admin Acetaminophen (Tylenol) 500 mg 1X PRN PRN 05/09/20 07:45 05/10/20 07:44 Albumin Human 200 ml @ 200 mls/hr 1X PRN PRN 05/09/20 07:45 05/09/20 13:44 Aspirin (Ecotrin) 81 mg DAILYWBKFT 05/08/20 08:00 05/08/20 13:24 81 MG Brimonidine Tartrate (Alphagan) 1 drop BID 05/07/20 21:00 05/08/20 20:12 1 DROP Calcium Acetate (Phoslo) 1,334 mg TIDWMEALS 05/08/20 08:00 05/08/20 16:56 1,334 MG Calcium Carbonate/ Glycine (Tums) 1,000 mg PRN AFTMEALHC PRN 05/08/20 10:00 05/08/20 09:56 1,000 MG Diphenhydramine HCl (Benadryl) 25 mg 1X PRN PRN 05/09/20 07:45 05/10/20 07:44 Fluticasone Propionate (Flonase) 2 spray DAILY 05/08/20 09:00 05/08/20 13:25 2 SPRAY Info (PHARMACY MONITORING -- do not chart) 1 each PRN DAILY PRN 05/09/20 07:45 Latanoprost (Xalatan) 1 drop QHS 05/07/20 21:00 05/08/20 20:11 1 DROP Metoclopramide HCl (Reglan) 2.5 mg QIDACHS 05/07/20 21:00 05/08/20 20:12 2.5 MG Ondansetron HCl (Zofran) 4 mg PRN Q8HRS PRN 05/07/20 17:15 05/08/20 17:14 DC Pantoprazole Sodium (Protonix) 40 mg DAILYAC 05/08/20 07:30 05/08/20 09:56 40 MG Sodium Chloride 1,000 ml @ 400 mls/hr Q2H30M PRN 05/09/20 07:33 05/09/20 19:32 Sucralfate (Carafate) 1 gm TIDAC 05/08/20 07:30 05/08/20 16:56 1 GM Timolol Maleate (Timoptic 0.5% Ophth) 1 drop BID 05/07/20 21:00 05/08/20 20:12 1 DROP Vitamin B Complex/ Vitamin C (Evelyn-Elsa) 1 tab DAILY 05/08/20 09:00 05/08/20 13:24 1 TAB Zolpidem Tartrate (Ambien) 5 mg PRN QHS PRN 05/07/20 19:45 05/08/20 20:12 5 MG Lab Laboratory Tests Test 05/08/20 09:50 White Blood Count 3.3 x10^3/uL (4.0-11.0) Red Blood Count 3.42 x10^6/uL (3.50-5.40) Hemoglobin 10.9 g/dL (12.0-15.5) Hematocrit 32.2 % (36.0-47.0) Mean Corpuscular Volume 94 fL (79-100) Mean Corpuscular Hemoglobin 32 pg (25-35) Mean Corpuscular Hemoglobin Concent 34 g/dL (31-37) Red Cell Distribution Width 14.6 % (11.5-14.5) Platelet Count 143 x10^3/uL (140-400) Neutrophils (%) (Auto) 58 % (31-73) Lymphocytes (%) (Auto) 33 % (24-48) Monocytes (%) (Auto) 6 % (0-9) Eosinophils (%) (Auto) 2 % (0-3) Basophils (%) (Auto) 1 % (0-3) Neutrophils # (Auto) 1.9 x10^3/uL (1.8-7.7) Lymphocytes # (Auto) 1.1 x10^3/uL (1.0-4.8) Monocytes # (Auto) 0.2 x10^3/uL (0.0-1.1) Eosinophils # (Auto) 0.1 x10^3/uL (0.0-0.7) Basophils # (Auto) 0.0 x10^3/uL (0.0-0.2) Sodium Level 134 mmol/L (136-145) Potassium Level 4.4 mmol/L (3.5-5.1) Chloride Level 96 mmol/L (98-107) Carbon Dioxide Level 23 mmol/L (21-32) Anion Gap 15 (6-14) Blood Urea Nitrogen 49 mg/dL (7-20) Creatinine 8.6 mg/dL (0.6-1.0) Estimated GFR (Cockcroft-Gault) 5.5 BUN/Creatinine Ratio 6 (6-20) Glucose Level 101 mg/dL (70-99) Lactic Acid Level 1.4 mmol/L (0.4-2.0) Calcium Level 8.8 mg/dL (8.5-10.1) Total Bilirubin 0.6 mg/dL (0.2-1.0) Aspartate Amino Transf (AST/SGOT) 15 U/L (15-37) Alanine Aminotransferase (ALT/SGPT) 12 U/L (14-59) Alkaline Phosphatase 266 U/L (46-116) Total Protein 7.3 g/dL (6.4-8.2) Albumin 3.4 g/dL (3.4-5.0) Albumin/Globulin Ratio 0.9 (1.0-1.7) Results All relevant outside records, renal labs, imaging studies, telemetry/EKG's were reviewed. Justicifation of Admission Dx: Justifications for Admission: Justification of Admission Dx: Yes Chronic Renal Failure: Other JOELLEN AGUIRRE MD May 09, 2020 09:18
--- NOTE | 2020-05-09 10:44 | NUR ---
SW following. SW referred per high risk for readmission and SNU needs. Reviewed chart and discussed with RN. Pt remains on room air and a renal diet. PT/OT recommendation for SNU. HARRIETT phoned and faxed referral to Daly at [facility]. HARRIETT completed Patient Choice of Vendor form. HARRIETT requested RN order COVID test for placement. SW to follow. Addendum: 05/09/20 at 1147 by FILEMON LORENZANA Pt accepted at [facility] SNU tomorrow (after 3 midnights) per Daly. Pt to take her own eyedrops and Daly to call and make arrangements with dialysis center. LVMeagan for dtr at [phone] Bunch. HARRIETT to continue following.
[2020-05-09 11:00] VITALS: BP 118/61
[2020-05-09] MEDS: PANTOPRAZOLE 40 MG TABLET.DR. PO SCH (11:26)
[2020-05-09] MEDS: FLUTICASONE 50MCG/NASAL SPRAY 16GM BOTTLE. NS SCH (13:16)
[2020-05-09] MEDS: ASPIRIN ENTERIC COATED 81 MG TABLET.DR. PO SCH (13:16)
[2020-05-09] MEDS: BRIMONIDINE 0.2% OPHTH SOLUTION 5ML BOTTLE. OU SCH ×2 (13:16→23:34)
[2020-05-09] MEDS: FOLIC/VIT B COMP W-C (RENAL) TABLET. PO SCH (13:16)
[2020-05-09] MEDS: TIMOLOL 0.5% OPHTH SOLUTION 5ML BOTTLE. OU SCH ×2 (13:16→23:34)
[2020-05-09 15:00] VITALS: BP 92/42
[2020-05-09] MEDS ORDERED: ONDANSETRON ODT 4 MG TAB.RAPDIS. PO PRN (17:15)
[2020-05-09 19:00] VITALS: BP 89/55
--- NOTE | 2020-05-09 22:53 | SNU/HH DC ---
DISCHARGE ORDERS DISCHARGE INFORMATION: DISCHARGE DATE: May 10, 2020 FINAL DIAGNOSIS Problems Medical Problems: (1) ESRD (end stage renal disease) Status: Chronic (2) Hyperkalemia Status: Acute (3) Weakness Status: Acute CONDITION ON DISCHARGE: Stable CODE STATUS: Code Status: Full [facility]: SNF STAY <30 DAYS: Yes HOSPICE: HOSPICE: No HOSPICE EVAL & TREAT: No LTAC: ADMIT TO LTAC: No POST DISCHARGE ORDERS: ACTIVITY ORDERS: Activity as tolerated, Progressive ambulation WEIGHT BEARING STATUS: As tolerated DIET AFTER DISCHARGE: Renal WOUND/INCISION CARE: No wound care needed CHECKS AFTER DISCHARGE: CHECKS AFTER DISCHARGE: Check blood press - daily, Check your Temp as needed, Weigh Yourself Daily FOLLOW-UP: Additional Instructions: dialysis m,w,f TREATMENT/EQUIPMENT ORDERS: ADAPTIVE EQUIPMENT NEEDED: None Physical Therapy For: Evalulation/Treatment Occupational Therapy For: Evaluation/Treatment DISCHARGE MEDICATIONS: Home Meds Active Scripts Midodrine Hcl (MIDODRINE HCL) 5 Mg Tablet, 5 MG PO DAILY for low bp for 30 Days, #30 TAB Prov:YARY FAIRCHILD MD 04/10/20 Metoclopramide Hcl (REGLAN) 10 Mg Tablet, 1 TAB PO QID for gastroperesis, #120 TAB Prov:YARY FAIRCHILD MD 10/08/18 Isosorbide Mononitrate (ISOSORBIDE MONONITRATE ER) 30 Mg Tab.er.24h, 30 MG PO DAILY08 for 30 Days, #30 TAB.SR Prov:YARY FAIRCHILD MD 01/21/18 Aspirin (ASPIRIN EC) 81 Mg Tablet.dr, 81 MG PO DAILYWBKFT for 30 Days, #30 TAB.SR 2 Refills Prov:YARY FAIRCHILD MD 08/06/17 Reported Medications Calcium Acetate (CALCIUM ACETATE) 667 Mg Tablet, 2 TAB PO TID for SUPPLEMENT for 30 Days, #180 TAB 0 Refills 05/07/20 Latanoprost (LATANOPROST) 2.5 Ml Drops, 1 DROP EACHEYE QHS for GLAUCOMA , #7.5 ML 3 Refills 05/07/20 Brimonidine Tartrate (BRIMONIDINE TARTRATE) 5 Ml Drops, 1 DROP EACHEYE BID for GLAUCOMA , #10 ML 0 Refills 05/07/20 Brimonidine Tartrate/Timolol (COMBIGAN EYE DROPS) 5 Ml Drops, 5 ML OP BID for GLAUCOMA, DROP 06/26/19 Zolpidem Tartrate (ZOLPIDEM TARTRATE) 5 Mg Tablet, 5 MG PO PRN QHS PRN for INSOMNIA, TAB 0 Refills 02/10/17 Pantoprazole Sodium (PANTOPRAZOLE SODIUM ) 40 Mg Tablet.dr, 40 MG PO DAILY, TAB 05/09/16 Folic Acid/Vitamin B Comp W-C (NEPHRO-DARIN TABLET) 0.8 Mg Tablet, 1 TAB PO DAILY, #90 TAB 3 Refills 02/25/16 Mometasone Furoate (NASONEX) 17 Gm [place].pump, 2 SPRAYS NS DAILY, SPRAYS 02/25/16 Sucralfate (CARAFATE) 1 Gm Tablet, 1 GM PO TIDAC 02/25/16 Discontinued Reported Medications Atorvastatin Calcium (ATORVASTATIN CALCIUM) 40 Mg Tablet, 40 MG PO HS for HLD 04/07/20 Fluticasone Propionate (FLUTICASONE PROPIONATE NASAL SPRAY) 16 Gm [place].susp, 1 SPRAY NS DAILY for ALLERGIES 04/07/20 Diclofenac Sodium (Diclofenac Sodium) 100 Gm Gel..gram., 1 BEATRIZ TP PRN QID PRN for PAIN 04/07/20 Ondansetron Hcl (ONDANSETRON HCL) 8 Mg Tablet, 1 TAB PO PRN BID PRN for NAUSEA/VOMITING 11/04/19 Hydrocodone/Acetaminophen (Hydrocodone-Acetamin 5-325 mg) 1 Each Tablet, 1 EACH PO PRN Q4HRS PRN for PAIN, TAB 06/26/19 Cholecalciferol (Vitamin D3) (VITAMIN D3) 1,000 Unit Tablet, 2 TAB PO BID for SUPPLEMENT , #30 TAB 5 Refills 06/26/19 Latanoprost (LATANOPROST) 2.5 Ml Drops, 1 DROP EACHEYE QHS, #2.5 ML 3 Refills 06/03/16 Cinacalcet Hcl (SENSIPAR) 30 Mg Tablet, 30 MG PO DAILYWLUN 02/25/16 Sevelamer Carbonate (RENVELA) 800 Mg Tablet, 1600 MG PO TIDWMEALS for ESRD 02/25/16 YARY FAIRCHILD MD May 09, 2020 22:53
[2020-05-09 23:02] VITALS: BP 117/55
[2020-05-09] MEDS: LATANOPROST 0.005% OPHTH SOLUTION 2.5ML BOTTLE. OU SCH (23:34)
[2020-05-09] MEDS: ZOLPIDEM 5 MG TABLET. PO PRN (23:35)
[2020-05-10 03:07] VITALS: BP 94/56
[2020-05-10 07:00] VITALS: BP 97/40
--- NOTE | 2020-05-10 08:53 | PDOC ---
PROGRESS NOTES Date of Service: DATE: 05/10/20 TIME: 08:51 Subjective Subjective feels weak Objective Objective Vital Signs Date Time Temp Pulse Resp B/P (MAP) Pulse Ox O2 Delivery O2 Flow Rate FiO2 05/10/20 07:00 97.7 70 18 97/40 (59) 99 Room Air 97.7 Intake and Output 05/10/20 07:00 Intake Total 100 ml Output Total 0 ml Balance 100 ml Intake Oral 100 ml Output Urine Total 0 ml Physical Exam Abdomen: Soft Heart: Regular rate General: Oriented X3 Lungs: Clear to auscultation MUSCULOSKELETAL: No deformity, No swelling Neuro: Normal speech Psych/Mental Status: Mental status NL Skin: No breakdown Diagnosis Problem List Problems Medical Problems: (1) ESRD (end stage renal disease) Status: Chronic (2) Hyperkalemia Status: Acute (3) Weakness Status: Acute Assessment Assessment Problems Medical Problems: (1) ESRD (end stage renal disease) Status: Chronic (2) Hyperkalemia Status: Acute (3) Weakness Status: Acute FINAL IMPRESSION: 1. Generalized weakness. 2. Lactic acidosis, elevated to 4.2, probably because the patient missed dialysis. 3. End-stage renal disease, Thursday, Thursday, and Thursday. 4. Pulmonary hypertension. 5. Diastolic heart failure. 6. History of diabetes, off medications. PLAN: d/c to SNU today. clinically improving lactic acid down to normal dialysis tomorrow PT/OT labs stable. Plan Plan of Care Problems Medical Problems: (1) ESRD (end stage renal disease) Status: Chronic (2) Hyperkalemia Status: Acute (3) Weakness Status: Acute Comment Review of Relevant I have reviewed the following items dorina (where applicable) has been applied. Labs Microbiology 05/07/20 Blood Culture - Preliminary, Resulted NO GROWTH AFTER 2 DAYS Medications Current Medications Ondansetron HCl (Zofran Odt) 4 mg PRN Q6HRS PRN PO NAUSEA/VOMITING Last administered on 05/09/20at 17:12; Start 05/09/20 at 17:15 Vitals/I & O Vital Sign - Last 24 Hours 05/09/20 05/09/20 05/09/20 05/09/20 11:00 15:00 19:00 20:00 Temp 97.8 97.9 98.0 97.8 97.9 98.0 Pulse 71 65 70 Resp 18 18 18 B/P (MAP) 118/61 (80) 92/42 (59) 89/55 (66) Pulse Ox 98 97 98 O2 Delivery Room Air Room Air Room Air Room Air 05/09/20 05/10/20 05/10/20 23:02 03:07 07:00 Temp 98.1 97.4 97.7 98.1 97.4 97.7 Pulse 68 75 70 Resp 18 B/P (MAP) 117/55 (75) 94/56 (69) 97/40 (59) Pulse Ox 100 98 99 O2 Delivery Room Air Room Air Room Air Intake and Output 05/09/20 05/09/20 05/10/20 15:00 23:00 07:00 Intake Total 100 ml Output Total 0 ml Balance 100 ml 0 ml Justicifation of Admission Dx: Justifications for Admission: Justification of Admission Dx: Yes Chronic Renal Failure: Other YARY FAIRCHILD MD May 10, 2020 08:53
[2020-05-10] MEDS: PANTOPRAZOLE 40 MG TABLET.DR. PO SCH (09:32)
[2020-05-10] MEDS: ASPIRIN ENTERIC COATED 81 MG TABLET.DR. PO SCH (09:32)
[2020-05-10] MEDS: SUCRALFATE 1 GM TABLET. PO SCH ×3 (09:32→16:41)
[2020-05-10] MEDS: METOCLOPRAMIDE 5 MG TABLET. PO SCH ×3 (09:33→16:41)
[2020-05-10] MEDS: CALCIUM ACETATE 667 MG CAPSULE PO SCH ×3 (09:33→16:41)
[2020-05-10] MEDS: FOLIC/VIT B COMP W-C (RENAL) TABLET. PO SCH (09:33)
[2020-05-10] MEDS: FLUTICASONE 50MCG/NASAL SPRAY 16GM BOTTLE. NS SCH (09:34)
[2020-05-10] MEDS: TIMOLOL 0.5% OPHTH SOLUTION 5ML BOTTLE. OU SCH (09:35)
[2020-05-10] MEDS: BRIMONIDINE 0.2% OPHTH SOLUTION 5ML BOTTLE. OU SCH (09:35)
[2020-05-10 11:00] VITALS: BP 108/53
[2020-05-10] MEDS: CALCIUM CARBONATE 500 MG TAB.CHEW PO PRN (11:03)
--- NOTE | 2020-05-10 11:23 | PDOC ---
DATE OF SERVICE DATE: 05/10/20 TIME: 11:22 SUBJECTIVE ROS Stable OBJECTIVE Vital Signs Vital Signs Date Time Temp Pulse Resp B/P (MAP) Pulse Ox O2 Delivery O2 Flow Rate FiO2 05/10/20 07:00 97.7 70 18 97/40 (59) 99 Room Air 97.7 I & 0 Intake and Output 05/10/20 07:00 Intake Total 100 ml Output Total 0 ml Balance 100 ml Intake Oral 100 ml Output Urine Total 0 ml PHYSICAL EXAM Physical Exam GEN: NAD , restless HEEN: OM moist NECK: supple CVS: S1S2, RESP: CTA, No Acc. Muscle Use GI: BS + ve, : No CVA tenderness, No Suprapubic Tenderness, No Holloway NEURO- Grossly normal, awake and alert EXT No LE edema SKIN No Rash DIAGNOSIS/ASSESSMENT Assessment & Plan ESRD - On HD MWF Recd Extra treatment on Thursday No indication for HD Generalized weakness- Per primary Pulmonary hypertension. Diastolic heart failure- asymptomatic History of diabetes, off medications. COMMENT/RELEVANT DATA Meds Current Medications Medications (Trade) Dose Ordered Sig/Any Start Time Stop Time Status Last Admin Dose Admin Acetaminophen (Tylenol) 500 mg 1X PRN PRN 05/09/20 07:45 05/09/20 19:00 DC Albumin Human 200 ml @ 200 mls/hr 1X PRN PRN 05/09/20 07:45 05/09/20 13:44 DC Aspirin (Ecotrin) 81 mg DAILYWBKFT 05/08/20 08:00 05/10/20 09:32 81 MG Brimonidine Tartrate (Alphagan) 1 drop BID 05/07/20 21:00 05/10/20 09:35 1 DROP Calcium Acetate (Phoslo) 1,334 mg TIDWMEALS 05/08/20 08:00 05/10/20 09:33 1,334 MG Calcium Carbonate/ Glycine (Tums) 1,000 mg PRN AFTMEALHC PRN 05/08/20 10:00 05/10/20 11:03 1,000 MG Diphenhydramine HCl (Benadryl) 25 mg 1X PRN PRN 05/09/20 07:45 05/09/20 19:00 DC Fluticasone Propionate (Flonase) 2 spray DAILY 05/08/20 09:00 05/10/20 09:34 2 SPRAY Info (PHARMACY MONITORING -- do not chart) 1 each PRN DAILY PRN 05/09/20 07:45 Cancel Latanoprost (Xalatan) 1 drop QHS 05/07/20 21:00 05/09/20 23:34 1 DROP Metoclopramide HCl (Reglan) 2.5 mg QIDACHS 05/07/20 21:00 05/10/20 11:03 2.5 MG Ondansetron HCl (Zofran Odt) 4 mg PRN Q6HRS PRN 05/09/20 17:15 05/09/20 17:12 4 MG Ondansetron HCl (Zofran) 4 mg PRN Q8HRS PRN 05/07/20 17:15 05/08/20 17:14 DC Pantoprazole Sodium (Protonix) 40 mg DAILYAC 05/08/20 07:30 05/10/20 09:32 40 MG Sodium Chloride 1,000 ml @ 400 mls/hr Q2H30M PRN 05/09/20 07:33 05/09/20 19:32 DC Sucralfate (Carafate) 1 gm TIDAC 05/08/20 07:30 05/10/20 11:03 1 GM Timolol Maleate (Timoptic 0.5% [facility]) 1 drop BID 05/07/20 21:00 05/10/20 09:35 1 DROP Vitamin B Complex/ Vitamin C (Evelyn-Elsa) 1 tab DAILY 05/08/20 09:00 05/10/20 09:33 1 TAB Zolpidem Tartrate (Ambien) 5 mg PRN QHS PRN 05/07/20 19:45 05/09/20 23:35 5 MG Results All relevant outside records, renal labs, imaging studies, telemetry/EKG's were reviewed. Justicifation of Admission Dx: Justifications for Admission: Justification of Admission Dx: Yes Chronic Renal Failure: Other JOELLEN AGUIRRE MD May 10, 2020 11:23
--- NOTE | 2020-05-10 11:47 | NUR ---
SW following. Reviewed chart and discussed with RN. Pt has discharge orders for SNU but pt refused the COVID test yesterday per SANDRINE Krishna. Pt tested negative for COVID on 04/06/2020. Daly from [facility] stated pt needs a more recent test since she goes to dialysis x3 days per week. Spoke with pt and pt's dtr Penny at [phone] and informed them of this information. Pt still refusing another COVID test. Pt lives with her dtr and has 24 hour care. Pt to discharge home today with dtr and resumption of outpatient dialysis on MWF at [facility]. Dr. Bunch and RN notified. No further SW needs at this time. Addendum: 05/10/20 at [address] Bunch put in HH order. HARRIETT completed referral to [facility] per approval from pt and pt's dtr. Patient Choice of Vendor form completed. HARRIETT confirmed with Josey that orders were received. RN updated. No further SW needs at this time.
--- NOTE | 2020-05-10 12:46 | SNU/HH DC ---
DISCHARGE WITH HOME HEALTH DISCHARGE INFORMATION: Discharge Date: May 10, 2020 Final Diagnosis: Problems Medical Problems: (1) ESRD (end stage renal disease) Status: Chronic (2) Hyperkalemia Status: Acute (3) Weakness Status: Acute Condition on Discharge: Stable CODE STATUS: Code Status: Full HOME HEALTH: Face to Face: I certify this patient is under my care and that I, or a nurse practitioner or physician's health center assistant working with me, had a face to face encounter that meets the physician face to face encounter requirements with this patient on []. Medical Complications: CHF RN For Eval/Treatment: Yes Physical Therapy For: Evalulation/Treatment Occupational Therapy For: Evaluation/Treatment Home Health Aide For: Self-care REMARKETING REP For: Community Resources Pt Meets Homebound Status: Poor coordination w/ amb. POST DISCHARGE ORDERS: Activity Instructions for Disc: Activity as tolerated, Progressive ambulation Weight Bearing Status after Di: As tolerated DIET AFTER DISCHARGE: Renal Wound/Incision Care: No wound care needed CHECKS AFTER DISCHARGE: Checks after discharge: Check blood press - daily, Check your Temp as needed, Weigh Yourself Daily TREATMENT/EQUIPMENT ORDERS: Adaptive Equipment Issued: None CERTIFICATION STATEMENT: Certification Statement: Certification Statement: Based on the above finding, I certify that this patient is confined to the home and needs intermittent residential care, physical therapy and/or speech therapy, or continues to need occupational therapy.~ This patient is under my care, and I have initiated the establishment of the plan of care.~ This patient will be followed by myself or a community physician who will periodically review the plan of care. Home Meds Active Scripts Midodrine Hcl (MIDODRINE HCL) 5 Mg Tablet, 5 MG PO DAILY for low bp for 30 Days, #30 TAB Prov:YARY FAIRCHILD MD 04/10/20 Metoclopramide Hcl (REGLAN) 10 Mg Tablet, 1 TAB PO QID for gastroperesis, #120 TAB Prov:YARY FAIRCHILD MD 10/08/18 Isosorbide Mononitrate (ISOSORBIDE MONONITRATE ER) 30 Mg Tab.er.24h, 30 MG PO DAILY08 for 30 Days, #30 TAB.SR Prov:YARY FAIRCHILD MD 01/21/18 Aspirin (ASPIRIN EC) 81 Mg Tablet.dr, 81 MG PO DAILYWBKFT for 30 Days, #30 TAB.SR 2 Refills Prov:YARY FAIRCHILD MD 08/06/17 Reported Medications Calcium Acetate (CALCIUM ACETATE) 667 Mg Tablet, 2 TAB PO TID for SUPPLEMENT for 30 Days, #180 TAB 0 Refills 05/07/20 Latanoprost (LATANOPROST) 2.5 Ml Drops, 1 DROP EACHEYE QHS for GLAUCOMA , #7.5 ML 3 Refills 05/07/20 Brimonidine Tartrate (BRIMONIDINE TARTRATE) 5 Ml Drops, 1 DROP EACHEYE BID for GLAUCOMA , #10 ML 0 Refills 05/07/20 Brimonidine Tartrate/Timolol (COMBIGAN EYE DROPS) 5 Ml Drops, 5 ML OP BID for GLAUCOMA, DROP 06/26/19 Zolpidem Tartrate (ZOLPIDEM TARTRATE) 5 Mg Tablet, 5 MG PO PRN QHS PRN for INSOMNIA, TAB 0 Refills 02/10/17 Pantoprazole Sodium (PANTOPRAZOLE SODIUM ) 40 Mg Tablet.dr, 40 MG PO DAILY, TAB 05/09/16 Folic Acid/Vitamin B Comp W-C (NEPHRO-DARIN TABLET) 0.8 Mg Tablet, 1 TAB PO DAILY, #90 TAB 3 Refills 02/25/16 Mometasone Furoate (NASONEX) 17 Gm [place].pump, 2 SPRAYS NS DAILY, SPRAYS 02/25/16 Sucralfate (CARAFATE) 1 Gm Tablet, 1 GM PO TIDAC 02/25/16 Discontinued Reported Medications Atorvastatin Calcium (ATORVASTATIN CALCIUM) 40 Mg Tablet, 40 MG PO HS for HLD 04/07/20 Fluticasone Propionate (FLUTICASONE PROPIONATE NASAL SPRAY) 16 Gm [place].susp, 1 SPRAY NS DAILY for ALLERGIES 04/07/20 Diclofenac Sodium (Diclofenac Sodium) 100 Gm Gel..gram., 1 BEATRIZ TP PRN QID PRN for PAIN 04/07/20 Ondansetron Hcl (ONDANSETRON HCL) 8 Mg Tablet, 1 TAB PO PRN BID PRN for NAUSEA/VOMITING 11/04/19 Hydrocodone/Acetaminophen (Hydrocodone-Acetamin 5-325 mg) 1 Each Tablet, 1 EACH PO PRN Q4HRS PRN for PAIN, TAB 06/26/19 Cholecalciferol (Vitamin D3) (VITAMIN D3) 1,000 Unit Tablet, 2 TAB PO BID for SUPPLEMENT , #30 TAB 5 Refills 06/26/19 Latanoprost (LATANOPROST) 2.5 Ml Drops, 1 DROP EACHEYE QHS, #2.5 ML 3 Refills 06/03/16 Cinacalcet Hcl (SENSIPAR) 30 Mg Tablet, 30 MG PO DAILYWLUN 02/25/16 Sevelamer Carbonate (RENVELA) 800 Mg Tablet, 1600 MG PO TIDWMEALS for ESRD 02/25/16 YARY FAIRCHILD MD May 10, 2020 12:46
[2020-05-10 15:00] VITALS: BP 115/32
--- NOTE | 2020-05-10 17:30 | NUR ---
DISCHARGE INSTRUCTIONS GIVEN, QUESTIONS AND CONCERNS ANSWERED, PATIENT AND HER DAUGHTER AT THE BEDSIDE VERBALIZED UNDERSTANDING OF DISCHARGE INFORMATION INCLUDING TAKING ALL MEDICATIONS INSTRUCTED AND FOLLOWING UP WITH DR. FAIRCHILD IN 1-2 WEEKS, PATIENT ALSO ENCOURAGED BY THIS SEAT COVER MAKER TO CONTINUE DIALYSIS EVERY THU, WED. AND THURSDAY PRIOR TO ADMISSION. SALINE LOCK REMOVED FROMLEFT UPPER ARM PER DIRECTOR WORKERS COMPENSATION, BANDAGE APPLIED.
--- NOTE | 2020-05-10 17:40 | NUR ---
PATIENT LEAVES THE UNIT PER W/C AND ACCOMPANIED BY THIS INSTRUCTOR TRAFFIC SAFETY AND HER DAUGHTER, EMOTIONAL SUPPORT GIVEN.
--- NOTE | 2020-05-14 12:14 | PDOC ---
Provider Note Provider Note Discharge summary dictated.#[id number] YARY FAIRCHILD MD May 14, 2020 12:14
--- NOTE | 2020-05-14 12:29 | DS ---
DATE OF DISCHARGE: 05/10/2020 REASON FOR ADMISSION TO THE HOSPITAL: Weakness, end-stage renal disease and chronic primary pulmonary hypertension. CONSULTATIONS: Renal, Joanna Chen MD PROCEDURES DONE: Dialysis, CT head. HOSPITAL COURSE: The patient is a 74-year-old female. The patient has been declining lately; end-stage renal disease, on hemodialysis. She has primary pulmonary hypertension and causing her shortness of breath. She was supposed to go to dialysis on Thursday. She was weak, unable to get off the public transportation. She was in a bus to dialysis. Paramedics were called. She was brought to the hospital. CT head was negative. Laboratory data was unremarkable. The patient was admitted to the hospital. Lactic acid was high at 3.4, but no evidence of any infection. The patient's lactic acid came down nicely to 1.4 within 24 hours without any IV antibiotics. The patient was dialyzed and creatinine 8.6. She is on chronic dialysis. CT head shows no acute abnormality. Chest x-ray, chronic scarring in the lungs. FINAL DIAGNOSES: 1. Generalized weakness and secondary to lactic acidosis. 2. Lactic acidosis, improved with dialysis. 3. End-stage renal disease, on hemodialysis Thursday, Thursday, Thursday. 4. Primary pulmonary hypertension. 5. Diastolic heart failure. DISPOSITION: Home. DISCHARGE MEDICATIONS: See MRAD for discharge medications. YARY FAIRCHILD MD DR: SAM/kailee JOB#: [id number] / [id number]
== END 2020-05-10 17:40 | disposition home health service (06) | DRG 640 ==
LOC: ER 12:05 → 5 NORTH 15:28
PROVIDERS: ADMIT Internal Medicine; ATTEND Internal Medicine
PROC: 5A1D70Z Performance of Urinary Filtration, Intermittent, Less than 6 Hours Per Day (ICD-10-PCS; principal; 2020-05-08)
PROC: 5A1D70Z Performance of Urinary Filtration, Intermittent, Less than 6 Hours Per Day (ICD-10-PCS; 2020-05-09)
DX: E87.5 Hyperkalemia (principal); N18.6 End stage renal disease; I13.2 Hypertensive heart and chronic kidney disease with heart failure and with stage 5 chronic kidney disease, or end stage renal disease; I50.32 Chronic diastolic (congestive) heart failure; I27.20 Pulmonary hypertension, unspecified; E11.22 Type 2 diabetes mellitus with diabetic chronic kidney disease; E87.2 Acidosis; J44.9 Chronic obstructive pulmonary disease, unspecified; Z96.659 Presence of unspecified artificial knee joint; E05.90 Thyrotoxicosis, unspecified without thyrotoxic crisis or storm; E21.3 Hyperparathyroidism, unspecified; F32.9 Major depressive disorder, single episode, unspecified; F41.9 Anxiety disorder, unspecified; K21.9 Gastro-esophageal reflux disease without esophagitis; Z82.49 Family history of ischemic heart disease and other diseases of the circulatory system; Z83.3 Family history of diabetes mellitus; Z99.2 Dependence on renal dialysis; Z98.42 Cataract extraction status, left eye; Z98.41 Cataract extraction status, right eye; Z88.5 Allergy status to narcotic agent; Z88.8 Allergy status to other drugs, medicaments and biological substances
CPT/HCPCS: 36415; 70450; 71045; 80053; 82140; 82553; 83605; 83735; 83880; 84145; 84443; 84484; 85025; 85610; 85730; 87040; 93005; 99285; 97535-GO; G0378

== ENCOUNTER 2020-11-10 15:25 | Emergency (ER) | payer MEDICARE, BC ==
[~2020-11-10] VITALS: Ht 167.6 cm; Wt 80.0 kg
[~2020-11-10 15:25] MED LIST changes: +AMLO-186 PO; +AMLO-187 PO; -AMLO10TA8 PO; -AMLO5TAB10 PO; +BRIM5DRO4 EACHEYE; +CALC667T4 PO; -CINA30TA2 PO; +CINA30TA24 PO; -ISOS30TA4 PO; +ISOS30TA68 PO; -LISI-334 PO; +LISI20TA18 PO
--- NOTE | 2020-11-10 18:36 | PHYS DOC ---
Past Medical History Past Medical History: Anemia, Hyperthyroid, Hypotension, Renal Failure, Stroke Additional Past Medical Histor: ESRF, hemodialysis Past Surgical History: Pacemaker, Other Additional Past Surgical Histo: Bx cataracts, R Carpal, R arm fistula, Axillary/Head tumor, Bx knee, Smoking Status: Never Smoker Alcohol Use: None Drug Use: None General Adult EDM: Chief Complaint: FLANK PAIN HPI: HPI: Patient is a 74-year-old female who presents to the emergency department with 1 week of dull left flank pain. She states the pain began gradually. She does not recall any injury to the area. She has taken Tylenol for the pain with no relief. She denies any other aggravating or alleviating factors. She denies any nausea, vomiting, diarrhea, black or bloody stool, fever or chills. She states her last bowel movement was yesterday and normal for her. Review of Systems: Review of Systems: Constitutional: Denies fever or chills Eyes: Denies redness or eye pain HENT: Denies nasal congestion or sore throat Respiratory: Denies cough or shortness of breath Cardiovascular: Denies chest pain or palpitations GI: denies abdominal pain, nausea, or vomiting : Denies dysuria or hematuria Musculoskeletal: Admits left flank pain, denies back pain or joint pain Integument: Denies rash or skin lesions Neurologic: Denies headache, focal weakness or sensory changes Complete systems were reviewed and found to be within normal limits, except as documented in this note. Allergies: Allergies: Allergies Coded Allergies Type Severity Reaction Last Updated Verified chlorhexidine Allergy Intermediate Rash 09/01/18 Yes Opioids - Morphine Analogues Adverse Reaction Intermediate Nausea and Vomiting 09/01/18 Yes Opioids-Meperidine and Related Adverse Reaction Intermediate Nausea and Vomiting 09/01/18 Yes Opioids-Methadone and Related Adverse Reaction Intermediate Nausea and Vomiting 09/01/18 Yes codeine Adverse Reaction Intermediate Nausea and Vomiting 09/01/18 Yes Physical Exam: PE: Constitutional: Well developed, well nourished, no acute distress, non-toxic appearance HENT: Normocephalic, atraumatic Eyes: PERRL, EOMI, conjunctiva normal, no discharge Neck: Normal range of motion, no tenderness, supple Lungs & Thorax: No respiratory distress, equal chest rise and fall Abdomen: Soft, no tenderness Skin: Warm, dry, no erythema, no rash Back: No tenderness, no CVA tenderness Extremities: No tenderness, ROM intact, no edema Neurologic: Alert and oriented X 3, normal motor function, normal sensory function, no focal deficits noted Psychologic: Affect normal, judgment normal Current Patient Data: Vital Signs: Vital Signs Date Time Temp Pulse Resp B/P (MAP) Pulse Ox O2 Delivery O2 Flow Rate FiO2 11/10/20 17:00 99.2 76 16 157/77 (103) 100 Room Air 99.2 EKG: EK. Normal sinus rhythm rate of 77 bpm. Normal axis. First-degree AV block. No ST segment elevations or depressions. QTQTc 450 ms - 511 ms Radiology/Procedures: Radiology/Procedures: [] Course & Med Decision Making: Course & Med Decision Making Patient is a 74-year-old female with end-stage renal disease who presents with left flank pain. Plan to obtain labs, EKG and treat symptomatically. Pertinent Labs and Imaging studies reviewed. (See chart for details) Patient stable for discharge with outpatient follow-up with PCP. Discussed findings and plan with patient, who acknowledges understanding and agreement. Dragon Disclaimer: [employer] Disclaimer: This electronic medical record was generated, in whole or in part, using a voice recognition dictation system. Departure Departure Impression: Primary Impression: Shingles Qualified Codes: B02.9 - Zoster without complications Disposition: 01 DC HOME SELF CARE/HOMELESS Condition: STABLE Referrals: YARY FAIRCHILD MD (PCP) Patient Instructions: Shingles, Yqti-[id number] Scripts Tramadol Hcl (TRAMADOL HCL) 50 Mg Tablet 50 MG PO Q6HRS PRN for PAIN, #14 TAB Prov: STEFAN NICOLE DO 11/10/20 Valacyclovir Hcl (VALACYCLOVIR) 1,000 Mg Tablet 1 TAB PO TID, #21 TAB Prov: STEFAN NICOLE DO 11/10/20 Prednisone (PREDNISONE) 20 Mg Tablet 2 TAB PO DAILY, #8 TAB Start this prescription tomorrow, Thursday11/11/20 Prov: STEFAN NICOLE DO 11/10/20 STEFAN NICOLE DO Nov 10, 2020 18:35
[2020-11-10] MEDS ORDERED: VALA10008 PO (20:27)
[2020-11-10] MEDS ORDERED: TRAM50TA PO (20:27)
[2020-11-10] MEDS ORDERED: PRED20TA PO (20:27)
[2020-11-10] MEDS ORDERED: traMADol 50 MG TABLET PO ONE (20:30)
[2020-11-10] MEDS ORDERED: DEXAMETHASONE 4 MG TABLET PO ONE (20:30)
[2020-11-10] MEDS ORDERED: valACYclovir 500 MG TABLET. PO ONE (20:30)
[2020-11-10 20:57] VITALS: BP 142/87
--- NOTE | 2020-11-10 21:01 | EKG ---
[facility] [address] [place] [address] Test Date: 2020-11-10 Test Time: 19:48:29 Pat Name: EMERALD MAI Department: Room: Gender: F [employer] Architect: : [id number] Requested By: STEFAN NICOLE Order Number: [id number] Reading MD: Measurements Intervals [place] Rate: 77 P: 52 TX: 292 QRS: -3 QRSD: 82 T: 94 QT: 450 QTc: 511 Interpretive Statements SINUS RHYTHM PROLONGED TX INTERVAL LEFTWARD AXIS QRS(T) CONTOUR ABNORMALITY CONSIDER ANTEROLATERAL MYOCARDIAL DAMAGE PROLONGED QT ABNORMAL ECG RI6.02 No previous ECG available for comparison
== END 2020-11-10 20:57 | disposition home or self-care (01) ==
LOC: ER 15:25
DX: B02.9 Zoster without complications (principal); Z99.2 Dependence on renal dialysis; N18.6 End stage renal disease; Z86.73 Personal history of transient ischemic attack (TIA), and cerebral infarction without residual deficits; Z88.5 Allergy status to narcotic agent; Z88.8 Allergy status to other drugs, medicaments and biological substances
CPT/HCPCS: 93005; 99285-25

== ENCOUNTER → 2021-01-15 | Outpatient (CLI) | payer MEDICARE, BC ==
[~2021-01-15] MED LIST changes: +PRED20TA PO; +TRAM50TA PO; +VALA10008 PO
--- NOTE | 2021-01-15 15:34 | KCIC ---
BILATERAL DIAGNOSTIC MAMMOGRAPHY AND LEFT BREAST ULTRASOUND History: Left breast cellulitis. Swelling greater than 2 but less than 6 months. Warm to touch. First Covid vaccine left arm 4 weeks ago. Comparison: No mammogram comparisons are available. CT chest with contrast 04/06/2020. Technique: Bilateral digital mammogram views were obtained. Findings: Breast Tissue Density D :The breasts are extremely dense, which lowers the sensitivity of mammography . Arterial and nonarterial calcifications are noted. There is moderate left and mild right skin thicken ing. There are no dominant masses, suspicious microcalcifications or architectural distortion. Real-time ultrasound imaging of the left breast is performed. There is severe ductal ectasia of the anterior left breast. Some of the ducts contain debris, for exa mple at the 3:00 position 1 cm from the nipple. At the 12:00 position 1 cm from the nipple tubular hy poechogenicities may be debris filled ducts. Color Doppler interrogation is negative. Thickening of t he dermis is noted. At the 7:00 position the subdermal tissues are echogenic, edematous, and demonstr ate mild blood flow. There is a left axillary lymph node that demonstrates cortical thickening measur ing up to 5 mm. IMPRESSION: 1. There is moderate left and mild right skin thickening. The breasts are extremely dense. Recommend left breast skin punch biopsy to exclude inflammatory breast carcinoma. 2. The patient has known chronic SVC occlusion and the breast appearance could in part be due to thi s diagnosis. Comparison to any prior mammograms would be useful. 3. The left axillary lymph node with cortical thickening may be reactive and secondary to recent vac cine. Recommend ultrasound follow-up in 3 months. BI-RADS Category 4: Suspicious. The images were reviewed with computer-aided detection. Patient information is entered into the reminder system with a target due date for the next screening mammogram. Mammography is the most sensitive method for finding small breast cancers, but it does not detect the m all and is not a substitute for careful clinical examination. A negative mammogram does not negate a clinically suspicious finding and should not result in delay in biopsying a clinically suspicious a bnormality. "Our facility is accredited by the [employer] Mammography Program." Electronically signed by: Laurent Carolina MD (01/15/2021 3:31 PM) [facility]
== END ==
LOC: KCIC MAMMO 12:54
PROVIDERS: ATTEND Internal Medicine
DX: L03.313 Cellulitis of chest wall (principal); N60.42 Mammary duct ectasia of left breast
CPT/HCPCS: 76641; 77066

== ENCOUNTER → 2021-03-12 | Day surgery (SDC) | payer MEDICARE, BC ==
[~2021-03-12] VITALS: Ht 167.6 cm; Wt 77.0 kg
[~2021-03-12] MED LIST changes: +APIX5TAB PO; +LIDOCAINE 1%/EPI 1:100,000 20 ML VIAL. INJ ONE; -LOSA25TA12 PO; +LOSA25TA4 PO; -OMEP40CA45 PO; +OMEP40CA7 PO
[2021-03-12 10:50] LABS: CALCIUM 8.4 mg/dL (8.5-10.1); CREATININE 6.7 mg/dL (0.6-1.0); GFR 7.3; POTASSIUM 4.8 mmol/L (3.5-5.1)
[2021-03-12 10:53] VITALS: BP 123/69
--- NOTE | 2021-03-12 11:25 | PDOC ---
SURGICAL PROGRESS NOTE DATE: 03/12/21 TIME: 11:24 No change in dictated H&P Vital Signs Vital Signs Date Time Temp Pulse Resp B/P (MAP) Pulse Ox O2 Delivery O2 Flow Rate FiO2 03/12/21 10:53 59 20 99 Labs Laboratory Tests Test 03/12/21 10:22 Sodium Level 138 mmol/L (136-145) Potassium Level 4.8 mmol/L (3.5-5.1) Chloride Level 101 mmol/L (98-107) Carbon Dioxide Level 26 mmol/L (21-32) Anion Gap 11 (6-14) Blood Urea Nitrogen 43 mg/dL (7-20) Creatinine 6.7 mg/dL (0.6-1.0) Estimated GFR (Cockcroft-Gault) 7.3 Glucose Level 85 mg/dL (70-99) Calcium Level 8.4 mg/dL (8.5-10.1) Laboratory Tests Test 03/12/21 10:22 Sodium Level 138 mmol/L (136-145) Potassium Level 4.8 mmol/L (3.5-5.1) Chloride Level 101 mmol/L (98-107) Carbon Dioxide Level 26 mmol/L (21-32) Anion Gap 11 (6-14) Blood Urea Nitrogen 43 mg/dL (7-20) Creatinine 6.7 mg/dL (0.6-1.0) Estimated GFR (Cockcroft-Gault) 7.3 Glucose Level 85 mg/dL (70-99) Calcium Level 8.4 mg/dL (8.5-10.1) Justicifation of Admission Dx: Justifications for Admission: Justification of Admission Dx: Yes Chronic Renal Failure: Other NAZIA MARSHALL MD Mar 12, 2021 11:25
--- NOTE | 2021-03-12 11:27 | PDOC ---
SURGICAL PROGRESS NOTE DATE: 03/12/21 TIME: 11:25 Op Note: Surgeon.....................................Edwin Pre op diag.................................swelling and edema left breast Post op diag...............................same Anesthesia..................................1% lidocaine with epi Drains.......................................none Blood loss..................................5cc Fluids........................................none Condition...................................fair Vital Signs Vital Signs Date Time Temp Pulse Resp B/P (MAP) Pulse Ox O2 Delivery O2 Flow Rate FiO2 03/12/21 10:53 59 20 99 Labs Laboratory Tests Test 03/12/21 10:22 Sodium Level 138 mmol/L (136-145) Potassium Level 4.8 mmol/L (3.5-5.1) Chloride Level 101 mmol/L (98-107) Carbon Dioxide Level 26 mmol/L (21-32) Anion Gap 11 (6-14) Blood Urea Nitrogen 43 mg/dL (7-20) Creatinine 6.7 mg/dL (0.6-1.0) Estimated GFR (Cockcroft-Gault) 7.3 Glucose Level 85 mg/dL (70-99) Calcium Level 8.4 mg/dL (8.5-10.1) Laboratory Tests Test 03/12/21 10:22 Sodium Level 138 mmol/L (136-145) Potassium Level 4.8 mmol/L (3.5-5.1) Chloride Level 101 mmol/L (98-107) Carbon Dioxide Level 26 mmol/L (21-32) Anion Gap 11 (6-14) Blood Urea Nitrogen 43 mg/dL (7-20) Creatinine 6.7 mg/dL (0.6-1.0) Estimated GFR (Cockcroft-Gault) 7.3 Glucose Level 85 mg/dL (70-99) Calcium Level 8.4 mg/dL (8.5-10.1) Justicifation of Admission Dx: Justifications for Admission: Justification of Admission Dx: Yes Chronic Renal Failure: Other NAZIA MARSHALL MD Mar 12, 2021 11:27
[2021-03-12 11:31] LABS: BASO % 1 % (0-3); EOS % 1 % (0-3); HEMATOCRIT 32.5 % (36.0-47.0); HEMOGLOBIN 10.9 g/dL (12.0-15.5); LYMPH # 0.7 x10^3/uL (1.0-4.8); LYMPH % 20 % (24-48); MEAN CORPUSCULAR HEMOGLOBIN 33 pg (25-35); MEAN CORPUSCULAR HGB CONC 34 g/dL (31-37); MEAN CORPUSCULAR VOLUME 100 fL (79-100); MONO # 0.3 x10^3/uL (0.0-1.1); MONO % 10 % (0-9); NEUT # 2.3 x10^3/uL (1.8-7.7); NEUT % 69 % (31-73); PLATELET COUNT 142 x10^3/uL (140-400); RED BLOOD COUNT 3.27 x10^6/uL (3.50-5.40); RED CELL DISTRIBUTION WIDTH 16.6 % (11.5-14.5); WHITE BLOOD COUNT 3.3 x10^3/uL (4.0-11.0)
[2021-03-12 11:41] LABS: PROTHROMBIN TIME PATIENT 13.7 SEC (11.7-14.0)
--- NOTE | 2021-03-12 12:24 | DISCH ---
DISCHARGE INSTRUCTIONS Condition on Discharge Condition on Discharge: Stable Activity After Discharge Activity Instructions for Disc: Activity as tolerated, Avoid exertion, Prog ressive ambulation Lifting Instructions after Dis: No heavy lifting Exercise Instruction after Dis: Progress as tolerated Driving Instructions after Dis: Do not drive Weight Bearing Status after Di: As tolerated Diet after Discharge Diet after Discharge: Renal Dialysis Additional Diet Restrictions: as pre op Diet Texture: Regular Liquid Texture: Thin Liquid Swallowing Supervision: None needed Wound Incision Care Wound/Incision Care: No wound care needed Other wound/incision instructi: keep wound dry and clean change dressing prn Wound Care Equipment: Dressings Checks after Discharge Checks after discharge: Check blood press - daily, Check your Temp as needed, Weigh Yourself Daily Contacting the DRCelso after DC Call your doctor for: Concerns you may have Follow-Up Follow up with: call and make appt to see Dr. morales 1 week Treatment/Equipment after DC Adaptive Equipment Issued: None NAZIA MORALES MD Mar 12, 2021 12:24
--- NOTE | 2021-03-13 00:24 | OP ---
DATE OF SURGERY: 03/12/2021 SURGEON: Tristen Pineda MD PREOPERATIVE DIAGNOSIS: Edema and a history of cellulitis of the left breast. POSTOPERATIVE DIAGNOSIS: Edema and a history of cellulitis of the left breast. ANESTHESIA: 1% lidocaine with epinephrine. PROCEDURE: Left breast biopsy. DESCRIPTION OF PROCEDURE: Under local anesthesia, the area was properly prepped and draped in routine fashion with the patient was consented in the supine position. Most of the edema was in the infraumbilical and lateral area and as such, an incision was made between about the 8 and 4 o'clock position at the areolar margin. We did adhere to as there was edema there and also it would be better cosmetically. We did this in a fusiform fashion, taking some of the skin about 0.25 inch x 1.5 inch length. We carried this down through the skin with a 15 blade and then went into the subQ and down into the breast and removed the skin and all the tissue beneath it. This was sent to the lab. I did speak to the pathologist about the problem. The frozen section was not done. The resultant defect was inspected. There was one fairly brisk bleeder laterally and we placed a 4-0 Vicryl suture that stopped this. The wound was then irrigated with saline and we then approximated the deeper tissues using 3-0 and 4-0 interrupted Vicryl and the skin was closed using a 5-0 nylon. We did this as it was quite a bit of edema and we did not want the wound to come open and as such, we did not put subcuticular sutures in as we thought this would may not hold. The procedure was then terminated and there was no further bleeding. A sterile dressing was applied and the procedure was terminated. The blood loss was probably 3-4 mL. No drains were used. Fluids given none and the condition of the patient was satisfactory as she has returned to the recovery room. WEST/COLETTE/YOVANI DR: WEST/kailee TID: [id number]
--- NOTE | 2021-03-13 18:09 | PATHOLOGY ---
[facility] Accession Number: [id number] . 01 Material submitted: . breast - LEFT BREAST MASS. Modifiers: left . 01 Clinical history: . LEFT BREAST MASS EXC. LEFT BREAST MASS EXCISION MASS OF LEFT RAGHU... . 02 Diagnosis: Skin and subcutaneous tissue, left breast mass excision: - Mild dermal edema and focal perivascular mild chronic inflammation. . (JP:mm; 03/13/2021) [facility] 03/13/2021 1555 Local . 02 Comment: There is no evidence of inflammatory carcinoma or malignancy. . (M:mm; 03/13/2021) . 02 Electronically signed: . Haroldo Villanueva MD, Pathologist NPI- [id number] . 01 Gross description: . Received in formalin labeled "Rupali Khan and left breast mass". Received is an un-oriented ellipse of breast skin with underlying white-yellow fibroadipose tissue measuring 2.3 x 0.5 x 2.0 cm. The skin is grossly unremarkable. The specimen is inked black. Sectioning reveals a white-yellow fibroadipose cut surfaces and no grossly apparent lesions. The specimen is entirely submitted in cassettes A1 thru A3 (tips in A3). The specimen was collected on 03/12/2021. The time obtained and placed in formalin is not designated. The specimen will be removed from formalin on 03/12/2021 at 2340 hrs. The specimen will be in formalin more than 6 hours and less than 72 hours. (BLJ; 03/12/2021) BLJ/BLJ 03/13/2021 1551 Local . 02 Pathologist provided ICD-10: L08.9, N63.20 . 02 CPT . 300503 Specimen Comment: A courtesy copy of this report has been sent to [phone], [phone] Specimen Comment: [id number] Specimen Comment: Report sent to / DR FAIRCHILD Performed at: [address], [place] [id number] MD Julian Catalan MD Phone: [phone] Performed at: 02 [facility] [address] [place], [place] [id number] MD Haroldo Villanueva MD Phone: [phone]
--- NOTE | 2021-03-18 12:26 | HP ---
ADMIT DATE: 03/12/2021 HISTORY OF PRESENT ILLNESS: The patient was seen previously and had swelling of the left breast if she lies on that side. She also has edema of the lower extremities and generalized anasarca from renal failure and other things. As such, she was sent to me as she did have inflammation of that breast. Seen by other physicians and that had resolved, but they thought she ought to have a biopsy to make certain she does not have inflammatory breast problems. PAST MEDICAL HISTORY: Shows she has had normal childhood diseases. She is on dialysis and takes medicine for hypertension and diabetes. She has had several D and C's in the past and states to have had a pacemaker in the past. I am not certain that she has it now, cannot find it. PAST SURGICAL HISTORY: She has had no other major surgery. ALLERGIES: SHE IS ALLERGIC ONLY TO TAPE. REVIEW OF SYSTEMS: Negative except for this edema of the left breast, which is at times painful. PHYSICAL EXAMINATION: Further examination is unchanged from the previous exam in that area. Head, ears, eyes, nose and throat clear. Chest and heart were not examined at this point. Breast were negative except for the left breast where she had edema, mostly at the lower portions and with no evidence of inflammation or erythema at this point. There was no significant tenderness at time of the examination. Lower extremities were not examined. Other than that, she has pitting edema there. IMPRESSION: Edema of the left breast; pitting edema and lymphedema, left arm and this may have been done due to a procedure for the dialysis. She also has end-stage renal failure and is on dialysis. She has coronary artery disease. PLAN: We will plan to do the breast biopsy under local anesthesia. WEST/MARCELLO/ALEXANDER DR: Elle TID: [id number]
== END | disposition home or self-care (01) ==
LOC: SURG 10:01
PROVIDERS: ATTEND Specialist
DX: N63.20 Unspecified lump in the left breast, unspecified quadrant (principal); L08.9 Local infection of the skin and subcutaneous tissue, unspecified; E78.00 Pure hypercholesterolemia, unspecified; I13.2 Hypertensive heart and chronic kidney disease with heart failure and with stage 5 chronic kidney disease, or end stage renal disease; I50.9 Heart failure, unspecified; N18.6 End stage renal disease; E11.22 Type 2 diabetes mellitus with diabetic chronic kidney disease; K21.9 Gastro-esophageal reflux disease without esophagitis; F41.9 Anxiety disorder, unspecified; Z99.2 Dependence on renal dialysis; Z87.440 Personal history of urinary (tract) infections; Z79.899 Other long term (current) drug therapy; Z98.890 Other specified postprocedural states; Z79.82 Long term (current) use of aspirin; Z79.84 Long term (current) use of oral hypoglycemic drugs; Z88.8 Allergy status to other drugs, medicaments and biological substances; Z82.49 Family history of ischemic heart disease and other diseases of the circulatory system
CPT/HCPCS: 19101; 36415; 80048; 85025; 85610; 88305; J3490